=== PATIENT | female | born 2000 | race Caucasian/White ===

== ENCOUNTER 2021-11-25 13:55 | Outpatient (CLI) | payer OTHER, SELFPAY | END 2021-11-25 13:56 | disposition home or self-care (01) | LOC: NFLDREF 13:56 | PROVIDERS: Visit Provider Advanced Practice Midwife | DX: O23.42 Unspecified infection of urinary tract in pregnancy, second trimester (principal); Z3A.24 24 weeks gestation of pregnancy | CPT/HCPCS: 87086 ==

== ENCOUNTER 2021-12-26 13:27 | Outpatient (CLI) | payer OTHER, SELFPAY ==
[2021-12-28 16:26] LABS: Rapid Plasma Reagin (RPR) Non Reactive (Non Reactive)
== END 2021-12-26 13:28 | disposition home or self-care (01) ==
LOC: NFLDREF 13:27
PROVIDERS: Visit Provider Advanced Practice Midwife
DX: Z34.90 Encounter for supervision of normal pregnancy, unspecified, unspecified trimester (principal)
CPT/HCPCS: 86592

== ENCOUNTER 2022-01-23 12:46 | Outpatient (CLI) | payer OTHER, SELFPAY ==
--- OUTSIDE RECORDS SUMMARY | 2022-01-23 12:49 | XMS_ITS | Encounter Summary ---
:2000 Author Organization [facility] Address [address] [place] [address] Care Team Providers Name Role Phone Chevy, Miranda Guadalupe APRN C.N.P., M.S.N. Primary Care Pr ovider Reason for Visit Reason Comments New Patient Outpatient (Routine) - Closed Specialty Diagnoses / Referred By Contact Referred To Contact Procedures Cardiovascular Diseases / Diagnoses Bicuspid Aortic Valve (HCC) Phyllis Ramírez, [facility] Region Cardiovascular Disease M.DBettie [address] [place] [address] Referral ID Status Reason Start Date Expiration Date Visits Requ ested Visits Authorized [id number] Closed 11/03/2017 11/03/2018 1 1 Encounter Details Date Type Department Care Team Description 11/17/2017 Comprehensive Visit Department of Rene Minor Aortic Cardiovascular TSilvio, M.P.H. Valve (HCC) Diseases in [address] [place] [address] 300 [facility] [address] [place], [place] [phone] (Work) [phone] Social History Tobacco Use Types Packs/Day Years Used Date Smoking Tobacco: Never Smokeless Tobacco: Never Alcohol Habits Answer Date Recorded How often do you have a drink containing alcohol? Monthly or less 08/02/2020 How many drinks containing alcohol do you have on a 1 or 2 08/02/2020 typical day when you are drinking? How often do you have six or more drinks on one Never 08/02/2020 occasion? Comment: Not asked Social Isolation Answer Date Recorded In a typical week, how many times do you talk on Three times a week 08/02/2020 the phone with family, friends, or neighbors? How often do you get together with friends or Three times a week 08/02/2020 relatives? How often do you attend restoration or faith 1 to 4 times per year 08/02/2020 services? Do you belong to any clubs or organizations such No 08/02/2020 as restoration groups, unions, fraternal or athletic groups, or school groups? How often do you attend meetings of the clubs or Never 08/02/2020 organizations you belong to? Are you now , , , Living with partner 08/02/2020 , never or living with a partner? Physical Activity Answer Date Recorded On average, how many days per week do you engage in moderate to 2 days 08/02/2020 strenuous exercise (like walking fast, running, jogging, dancing, swimming, biking, or other activities that cause a light or heavy sweat)? On average, how many minutes do you engage in exercise at th is 20 min 08/02/2020 level? Stress Answer Date Recorded Do you feel stress - tense, restless, nervous, or anxious, N ot at all 08/02/2020 or unable to sleep at night because your mind is troubled all the time - these days? Financial Resource Strain Answer Date Recorded How hard is it for you to pay for the very basics like Not v mk hard 08/02/2020 food, housing, medical care, and heating? Intimate Partner Violence Answer Date Recorded Within the last year, have you been afraid of your partner o r No 08/02/2020 ex-partner? Within the last year, have you been humiliated or emotionall y No 08/02/2020 abused in other ways by your partner or ex-partner? Within the last year, have you been kicked, hit, slapped, or No 08/02/2020 otherwise physically hurt by your partner or ex-partner? Within the last year, have you been raped or forced to have any No 08/02/2020 kind of sexual activity by your partner or ex-partner? Food Insecurity Answer Date Recorded Within the past 12 months, you worried that your food would Never true 08/02/2020 run out before you got money to buy more. Within the past 12 months, the food you bought just didn't N ever true 08/02/2020 last and you didn't have money to get more. Transportation Needs Answer Date Recorded In the past 12 months, has lack of transportation kept you f rom No 08/02/2020 medical appointments or from getting medications? In the past 12 months, has lack of transportation kept you f rom No 08/02/2020 meetings, work, or getting things needed for daily living? Sex Assigned at Date Recorded Not on file documented as of this encounter Last Filed Vital Signs Vital Sign Reading Time Taken Comments Blood Pressure 82/53 11/17/2017 12:51 PM CDT Pulse 92 11/17/2017 12:48 PM CDT Temperature - - Respiratory Rate - - Oxygen Saturation 98% 11/17/2017 12:48 PM CDT Inhaled Oxygen Concentration - - Weight 75.1 kg (165 lb 9.1 oz) 11/17/2017 12:48 PM CDT Height 159.5 cm (5' 2.8) 11/17/2017 12:48 PM CDT Body Mass Index 29.52 11/17/2017 12:48 PM CDT Body Mass Index Percentile 93.34 % 11/17/2017 12:48 PM C DT Growth Chart: CDC (Girls, 2-20 Years) documented in this encounter Consult Notes Rene Minor M.D., M.P.H. - 11/17/2017 1:15 PM CDT Referring Provider: Phyllis Ramírez M.D. CHIEF COMPLAINT / REASON FOR VISIT Bicuspid aortic valve HISTORY OF PRESENT ILLNESS Ms. Angelo Vallejo 16-year-old female with a bicuspid aortic valve. She has no associated aortopathy. The bicuspid valve is functioning normally without any stenosis and with only trivial aortic valve regurgitation. She was born about 2 months premature and echocardiogram at 6 weeks old showed cardiomyopathy with biventricular systolic dysfunction and estimated left ventricular ejection fraction of around 25% and a bicuspid aortic valve. Currently she is doing well. She is a healthy 16-year-old and has no cardiopulmonary symptoms. The following portions of the patient's history were reviewed and updated as appropriate: Allergies,Current Medications, Family History, Medical History, Social History, Surgical History, Psychiatric History, Substance Abuse History, Problem List, Labs, and Diagnostic Tests. I also reviewed pertinentclinical notes in the electronic health record. REVIEW OF SYSTEMS A comprehensive review of systems was completed; pertinent abnormalities are included in the Historyof Present Illness. MEDICATIONS Current Medications: ??? acetaminophen (TYLENOL) 500 mg capsule, Take 1,000 mg by mouth. ??? ibuprofen (ADVIL,MOTRIN) 200 mg tablet, Take 800 mg by mouth. OBJECTIVE VITALS Blood Pressure: 82/53 Pulse: 92 SpO2: 98 % Height: 159.5 cm Weight: 75.1 kg BMI (Calculated): 29.5 kg/m?? PHYSICAL EXAMINATION General: In no acute distress. Psychiatric: Oriented to person, place, and time. Eyes: Normal sclera. No conjunctivitis. Vessels: Normal carotid pulses. Normal femoral pulses. Heart: Normal S1 with systolic click and normal S2, no S3 or S4. No obvious systolic or diastolic murmur appreciated although with the right upper sternal border there may be a faint flow murmur acrossthe aortic valve. Normal JVP. Lungs: Clear to auscultation bilaterally. No wheezes or crackles. Extremities: No edema Skin: No stasis dermatitis or ulceration of the lower extremities. DIAGNOSTIC REVIEW All labs and diagnostic studies were reviewed. Electrocardiogram 09/03/2017 shows normal sinus rhythm with nonspecific ST abnormalities. Echocardiogram of 11/02/2017 shows possible bicuspid valve with partial fusion and raphe between left and right coronary cusps without any valve stenosis. There is trivial aortic valve regurgitation. The ascending aorta is normal in dimension and there are no echocardiographic features of coarctation.The left ventricle size and wall thickness are normal. Calculated left ventricular ejection fractionis 59%. There are no regional wall motion abnormalities. ASSESSMENT / PLAN #1 Bicuspid Aortic Valve (HCC) The patient has a bicuspid valve without any associated aortopathy. The aortic valve is not stenoticand there is only trivial aortic valve regurgitation. She is asymptomatic. Echocardiogram should be repeated if the patient develops a significant heart murmur or cardiopulmonary symptoms that may be attributable to aortic valve disease. She was encouraged to maintain good dental hygiene. I did advise her and her mother who was present during the visit that her first- degree relatives should be screened with an echocardiogram for bicuspid aortic valve +/-aortopathy. I discussed the natural history of bicuspid aortic valve and did indicate to the patient and her mother that the majority of patients with bicuspid aortic valve need an intervention to the valve at some point during their lifetime because of development of aortic valve stenosis or regurgitation. I also indicated to them that overall patients with bicuspid aortic valve have a normal life expectancy with aortic valve or aorta surgery along the way. I also warned against hypertension, hyperlipidemia, diabetes, and tobacco use since these cardiovascular risk factors are known to contribute to development of aortic valve stenosis in patients with a bicuspid or tricuspid valves. Rene Minor M.D., M.P.H. 11/17/2017 documented in this encounter Plan of Treatment Not on filedocumented as of this encounter Visit Diagnoses Diagnosis Bicuspid Aortic Valve (HCC) documented in this encounter Additional Health Concerns Assessment Noted Time PHQ-9 Depression Total Score: 8 10/13/2017 12:58 PM CD T documented as of this encounter Care Teams Major Account Manager Relationship Specialty Start Date End Date Miranda Reece APRN, C.N.P., PCP - General 02/04/18 M.S.N. [address] [place] [address] documented as of this encounter
--- OUTSIDE RECORDS SUMMARY | 2022-01-23 12:49 | XMS_ITS | Encounter Summary ---
:2000 Author Organization [facility] Address [address] [place] [address] Care Team Providers Name Role Phone Reece, Miranda Guadalupe APRN C.N.PBettie, M.S.N. Primary Care Pr ovider Reason for Referral Outpatient (Routine) - Closed Specialty Diagnoses / Referred By Contact Referred To Contact Procedures Cardiovascular Diseases / Diagnoses Bicuspid Aortic Valve (HCC) Phyllis Ramírez, [facility] Cardiovascular Disease Silvio [address] [place] [address] Referral ID Status Reason Start Date Expiration Date Visits Requ ested Visits Authorized [id number] Closed 11/03/2017 11/03/2018 1 1 Encounter Details Date Type Department Care Team Description 11/03/2017 Orders Only Department of [facility] Phyllis Ramírez, Bic uspid Aortic Valve Medicine, Oren Anguiano (HCC) (Primary Dx) Clinic, in [address] [facility] [id number] [place] [address] [phone] [phone] (Work) [phone] Social History Tobacco Use Types Packs/Day Years [...] 08/02/2020 relatives? How often do you attend religious or jehovah's witness 1 to 4 times per year 08/02/2020 services? Do you belong to any clubs or organizations such No 08/02/2020 as religious groups, unions, fraternal or athletic groups, or [...] on file documented as of this encounter Plan of Treatment Scheduled Referrals Name Type Priority Associated Order Schedule Diagnoses Cardiovascular Disease Outpatient Referral Routine Bicuspid Ao rtic Expected: - General consultative Valve (HCC) 11/03 cardiology consult (Approxim ate), (clinic) Expires: 11/03/2020 documented as of this encounter Visit Diagnoses Diagnosis Bicuspid Aortic Valve (HCC) - Primary documented in this encounter Additional Health Concerns Assessment Noted Time PHQ-9 Depression Total Score: 8 10/13/2017 12:58 PM CD T documented as of this encounter Care Teams Mess Attendant Crew Relationship Specialty Start Date End Date Miranda Reece APRN, C.N.P., PCP - General 02/04/18 M.S.N. [address] [place] [address] documented as of this encounter
--- OUTSIDE RECORDS SUMMARY | 2022-01-23 12:49 | XMS_ITS | Encounter Summary ---
:2000 Author Organization [facility] Address [address] [place] [address] Care Team Providers Name Role Phone Chaparro Payan P.A.-C. Primary Care Provider [phone] Reason for Visit Reason Onset Date Comments Left Without Being Seen 09/16/2021 Appointment Request (Routine) - Authorized Specialty Diagnoses / Procedures Referred By Contact Refer red To Contact Maternal and Diagnoses Bicuspid Aortic Valve (HCC) Abnormal Ultrasound Jay Kebede, [facility] Audra GillilandNGurdeep [address] [place] [id number] Referral ID Status Reason Start Date Expiration Date Visits V isits Requested Authorized [id number] Authorized 08/25/2021 08/25/2022 3 3 Encounter Details Date Type Department Care Team Description 09/16/2021 Comprehensive Visit Department of Shelbi Tse Proce dure And Obstetrics and M.S., CGC Treatment Not Gynecology in [address] [place] [address] Carried Out Due To [place], [place] Patient Leaving [address] [place] [phone] Prior To Being Seen [place], [place] [phone] By [facility] [phone] (Work) Provider (Primary [phone] Dx) (Fax) Social History Tobacco Use Types Packs/Day Years [...] 08/02/2020 relatives? How often do you attend synagogue or jehovah's witness 1 to 4 times per year 08/02/2020 services? Do you belong to any clubs or organizations such No 08/02/2020 as synagogue groups, unions, fraternal or athletic groups, or [...] or getting things needed for daily living? Education Answer Date Recorded What is the highest level of school you have completed or 12 th grade 08/02/2020 the highest degree you have received? Sex Assigned at Date Recorded Not on file documented as of this encounter Progress Notes Shelbi Tse M.S., REENA - 09/16/2021 11:00 AM CDT Citlaly Vallejo was scheduled and checked in for an appointment but left before being seen by Shelbi Tse M.S., REENA. documented in this encounter Plan of Treatment Not on filedocumented as of this encounter Visit Diagnoses Diagnosis Procedure And Treatment Not Carried Out Due To Patient Leaving Prior To Being Seen By Health Care Provider - Primary documented in this encounter Additional Health Concerns Assessment Noted Time PHQ-9 Depression Total Score: 8 10/13/2017 12:58 PM CD T documented as of this encounter Care Teams Glass Breaker Relationship Specialty Start Date End Date Chaparro Payan P.A.-C. PCP - General 02/05/[address] [place] [phone] documented as of this encounter
--- OUTSIDE RECORDS SUMMARY | 2022-01-23 12:49 | XMS_ITS | Encounter Summary ---
:2000 Author Organization [facility] Address [address] [place] [address] Care Team Providers Name Role Phone Chaparro Payan P.A.-C. Primary Care Provider [phone] Reason for Referral Outpatient (Routine) - Closed Specialty Diagnoses / Procedures Referred By Contact Refer red To Contact Diagnoses Lesion Skin Chest Chaparro Payan P.A.-C. Procedures Lesion Excision and Closure [address] [place] [phone] Referral ID Status Reason Start Date Expiration Date Visits Requ ested Visits Authorized [id number] Closed 08/12/2020 08/12/2021 1 1 Reason for Visit Reason Comments Suspicious Skin Lesion R upper breast mole removal Outpatient (Routine) - Closed Specialty Diagnoses / Procedures Referred By Contact Refer red To Contact Family Medicine Chaparro Payan P. A.-C. [facility] [address] [place] [phone] Referral ID Status Reason Start Date Expiration Date Visits Requ ested Visits Authorized [id number] Closed 08/02/2020 08/02/2021 1 1 Encounter Details Date Type Department Care Team Description 08/12/2020 Office Visit Department of Family Chaparro Payan Le sion Skin Chest Medicine [facility] Dx[facility], in [address] [address] [place] CORT[place]S [phone] (Work) [phone] Social History Tobacco Use Types Packs/Day Years [...] 08/02/2020 relatives? How often do you attend taoist or scientologist 1 to 4 times per year 08/02/2020 services? Do you belong to any clubs or organizations such No 08/02/2020 as taoist groups, unions, fraternal or athletic groups, or [...] Sign Reading Time Taken Comments Blood Pressure 104/62 08/12/2020 11:02 AM CDT Pulse 80 08/12/2020 11:02 AM CDT Temperature 36 ??C (96.8 ??F) 08/12/2020 11:02 AM CDT Respiratory Rate - - Oxygen Saturation - - Inhaled Oxygen Concentration - - Weight 88 kg (194 lb 0.1 oz) 08/12/2020 11:02 AM CDT Height 160 cm (5' 2.99) 08/12/2020 11:02 AM CDT Body Mass Index 34.38 08/12/2020 11:02 AM CDT documented in this encounter Progress Notes Chaparro Payan P.A.-C. - 08/12/2020 11:00 AM CDT CHIEF COMPLAINT / REASON FOR VISIT Citlaly Vallejo is a 19 y.o. female who presents for evaluation of Suspicious Skin Lesion (R upper breast mole removal). HISTORY OF PRESENT ILLNESS Citlaly presents today for skin lesion removal. I recently did her history and physical examination she has 2 lesions on her chest that she says have changed in size. OBJECTIVE Vitals: 08/12/20 1102 BP: 104/62 BP Location: Right arm Patient Position: Sitting Cuff Size: Large Pulse: 80 Temp: 36 ??C Weight: 88 kg Height: 160 cm Body mass index is 34.38 kg/m??. PHYSICAL EXAM In general she appears in no acute distress Skin: On her right upper chest she has 2 lesions 1 is very dark in approximately 3 mm in diameter. The other 1 is small with irregular borders and just below the other lesion closer to her breast. IMPRESSION / REPORT / PLAN #1 Lesion Skin Chest We had a good discussion about these previously and given the fact they have changed in size we opted to remove them. Please see separate procedure note Chaparro Payan P.A.-C. documented in this encounter Procedure Notes Chaparro Payan P.A.-C. - 08/12/2020 11:00 AM CDTAssociated Order(s): Lesion Excision and Closure Post-Procedure Diagnose(s): Lesion Skin Chest Lesion Excision and Closure Date/Time: 08/12/2020 11:00 AM Performed by: Chaparro Payan P.A.-C. Authorized by: Chaparro Payan P.A.-C. Care team members present 1. Chaparro Payan P.A.-C. PROCEDURE DETAILS Number of lesions: 2 Lesion Number 1 Location on body: anterior trunk Anterior trunk: right chest. Size of lesion: 0.3 cm Size of total margins (both edges): 0.1 cm Size of lesion + margin: 0.4 cm Excision depth: epidermal Specimen sent for pathology: yes Malignancy: Malignancy unknown Wound closure / hemostasis: hemostasis Hemostasis: aluminum chloride Photo taken: no Lesion Number 2 Location on body: anterior trunk Anterior trunk: right chest. Size of lesion: 0.1 cm Size of total margins (both edges): 0.1 cm Size of lesion + margin: 0.2 cm Excision depth: epidermal Specimen sent for pathology: yes Malignancy: Malignancy unknown Wound closure / hemostasis: hemostasis Hemostasis: aluminum chloride Photo taken: no CONSENT Consent obtained: verbal Consent given by: patient The benefits, risks and alternatives to the procedure and the potential need for sedation or anesthesia as well as the names, roles, and responsibilities of healthcare team members performing significant interventional tasks were discussed with the patient and/or decision maker. UNIVERSAL PROTOCOL All relevant documentation and testing were reviewed and available. All required blood products, implants, devices and or special equipment were made available as applicable. Pre-procedure verificationwas conducted and the correct site was marked if required. A fire risk assessment was done as applicable. The procedural time-out was conducted prior to performing the procedure and confirmed in a procedural pause. PRE-PROCEDURE DETAILS Procedure purpose: diagnostic Site preparation: povidone / iodine and alcohol SEDATION / ANESTHESIA Anesthesia method: local infiltration Local infiltrate type: lidocaine, with epinephrine POST-PROCEDURE DETAILS Estimated blood loss: minimal Procedure completed successfully: Yes Complications: No apparent complications Tolerance: well tolerated Follow-up: yes, requested as ordered documented in this encounter Plan of Treatment Not on filedocumented as of this encounter Procedures Procedure Name Priority Date/Time Associated Diagnosis Comme nts SURGICAL PATHOLOGY Routine 08/12/2020 11:44 AM Lesion Skin [address] Results for this CDT procedure are i n the results section. LESION EXCISION AND Routine 08/12/2020 11:00 AM Lesion Skin Ch est Results for this CLOSURE CDT procedure are i n the results section. documented in this encounter Results Surgical Pathology (08/12/2020 11:44 AM CDT) Component Value Ref Test Analysis Performed At [facility] Range Method Time Signature 08/14/2020 JULIO 11:27 AM CDT Report Stevan Perez 08/14/2020 JULIO electronically MD Isra 11:27 AM signed by CDT Specimen Received A. ??Skin punch biopsy right upper chest 08/14/2020 JULIO B. ??Skin punch biopsy right lower chest 11:27 AM CDT Clinical History Skin lesions 08/14/2020 MKTO 11:27 AM CDT Gross Description A: ??Submitted as right upper chest is a 0.3 cm i n diameter 08/14/2020 [facility] with a depth of 0.1 cm light mcknight skin punch. ESBChris 11:27 AM B: ??Submitted as right lower chest is a 0.2 cm in diameter CDT with a depth of 0.1 cm light mcknight skin punch. ESBMandy. [facility]/nm Interpretation FINAL DIAGNOSIS 08/14/2020 [facility] A. Skin, right upper chest punch biopsy: ??Dermal nevus, 11:27 AM appearing excised in the plane of the sections examined. CDT B. Skin, right lower chest punch biopsy: ??Dermal nevus, appearing excised in the plane of the sections examined. Specimen Anatomical Collection Method Collection Time Receive d Time (Source) Location / / Volume Laterality Varies 08/12/2020 11:44 08/13/2020 8:26 AM CDT AM CDT Narrative This result has an attachment that is no t available. Chaparro Payan P.A.-C. LAB SURG PATH ORDERABLES Performing Organization Address [facility]/State/ZIP Code Phon e Number [facility]- [address] [place] [address] [place] [address] [address] Lesion Excision and Closure (08/12/2020 11:00 AM CDT) Narrative Chaparro Payan P.A.-C. - 08/12/2020 11:00 AM CDT Chaparro Payan P.A.-C. ? 08/12/2020 ??1:02 PM Lesion Excision and Closure Date/Time: 08/12/2020 11:00 AM Performed by: Chaparro Payan P.A.-C . Authorized by: Chaparro Payan P.A.- C. Care team members present 1. Chaparro Payan P.A.-C. PROCEDURE DETAILS ?? Number of lesions: 2 Lesion Number 1 Location on body: anterior trunk Anterior trunk: right chest. Size of lesion: 0.3 cm Size of total margins (both edges): 0.1 cm Size of lesion + margin: 0.4 cm Excision depth: epidermal Specimen sent for pathology: yes Malignancy: Malignancy unknown Wound closure / hemostasis: hemostasis Hemostasis: aluminum chloride Photo taken: no Lesion Number 2 Location on body: anterior trunk Anterior trunk: right chest. Size of lesion: 0.1 cm Size of total margins (both edges): 0.1 cm Size of lesion + margin: 0.2 cm Excision depth: epidermal Specimen sent for pathology: yes Malignancy: Malignancy unknown Wound closure / hemostasis: hemostasis Hemostasis: aluminum chloride Photo taken: no CONSENT Consent obtained: verbal Consent given by: patient The benefits, risks and alternatives to the procedure and the potential need for sedation or anesthesia as well as the names, roles, and responsibilities of healthcare team memb ers performing significant interventional tasks were discussed with the patient and/or decision maker. UNIVERSAL PROTOCOL All relevant documentation and testing w ere reviewed and available. All required blood products, implants, devic es and or special equipment were made available as applicable. Pre-proced ure verification was conducted and the correct site was marked if required. A fire risk assessment was done as applicable. The procedural time-out w as conducted prior to performing the procedure and confirmed in a procedu ral pause. PRE-PROCEDURE DETAILS ?? Procedure purpose: diagnostic Site preparation: povidone / iodine and alcohol SEDATION / ANESTHESIA Anesthesia method: local infiltration Local infiltrate type: lidocaine, with e pinephrine POST-PROCEDURE DETAILS ?? Estimated blood loss: minimal Procedure completed successfully: Yes ?? Complications: No apparent complications ?? Tolerance: well tolerated Follow-up: yes, requested as ordered Chaparro Payan P.A.-C. PROCEDURE/MINOR SURGICAL ORD ERABLES documented in this encounter Visit Diagnoses Diagnosis Lesion Skin Chest - Primary documented in this encounter Additional Health Concerns Assessment Noted Time PHQ-9 Depression Total Score: 8 10/13/2017 12:58 PM CD T documented as of this encounter Care Teams Assessment Specialist Relationship Specialty Start Date End Date Chaparro Payan P.A.-C. PCP - General 02/05/18 [address] [place] [phone] documented as of this encounter
--- OUTSIDE RECORDS SUMMARY | 2022-01-23 12:49 | XMS_ITS | Encounter Summary ---
:2000 Author Organization [facility] Address [address] [place] [address] Care Team Providers Name Role Phone Chaparro Payan P.A.-C. Primary Care Provider [phone] Reason for Visit Reason Onset Date Comments Outpatient COVID-19 Testing 07/12/2020 Encounter Details Date Type Department Care Team Description 07/12/2020 External Outreach Department of Family Wood Guzman Contact With And Medicine, [facility] Abdulkadir Winter D.O. (Suspected) Exposure Building, in [address] COVID-19 (Primary [place], [place] Dx) [address] [facility] [address] [place], [place] [phone] (Work) [phone] Social History Tobacco Use Types Packs/Day Years [...] 08/02/2020 relatives? How often do you attend catholic or restorationism 1 to 4 times per year 08/02/2020 services? Do you belong to any clubs or organizations such No 08/02/2020 as catholic groups, unions, fraternal or athletic groups, or [...] documented as of this encounter Progress Notes Doreen Johnson R.N. - 07/12/2020 2:43 PM CST Encounter created for COVID-19 screening. LOGY PROFESSOR documented in this encounter Plan of Treatment Not on filedocumented as of this encounter Procedures Procedure Name Priority Date/Time Associated Diagnosis Comme nts SARS CORONAVIRUS-2 Routine 07/12/2020 4:07 PM Contact With And Results for this RNA, V PENOLOGY PROFESSOR (Suspected) Exposure procedu re are in To COVID-19 the results section. documented in this encounter Results SARS Coronavirus-2 RNA, V Asymptomatic (07/12/2020 4:07 PM PENOLOGY PROFESSOR) [facility] Method Time Signature SARS-CoV-2 Swab, 07/13/2020 [facility] Specimen Nasopharynx 1:56 AM PENOLOGY PROFESSOR Source SARS CoV-2 Undetected Undetected 07/13/2020 [facility] RNA, TMA 1:56 AM PENOLOGY PROFESSOR Comment: SARS-CoV-2 RNA absent. This result does not rule out COVID-19 in the patient, as the sensitivity of the test depends o n the timing of the specimen collection and the quality of the specim en. Result should be correlated with patient's history and clinical presentat ion. ----ADDITIONAL INFORMATION---- This molecular amplification test was pe rformed using the Aptima SARS-CoV-2 assay ([employer] on the [employer] tem under emergency use authorization (EUA) by the U.S. Food and Drug Administ ration. Fact sheets for this EUA assay can be fo und at the following links: For Healthcare Providers: https://www.fd a.gov/media/111180/download For Patients: https://www.fda.gov/media/ 817856/download Specimen Anatomical Collection Method Collection Time Receive d Time (Source) Location / / Volume Laterality Varies 07/12/2020 4:07 PM 02/12/202 1 8:44 (Nasopharynx) PENOLOGY PROFESSOR PM PENOLOGY PROFESSOR Wood Guzman D.O. LAB MICROBIOLOGY - GENERAL O JIMMY Performing Organization Address City/State/ZIP Code Phon e Number [facility]- [address] [place] [id number] [place] [address] [place] [address] System [address] documented in this encounter Visit Diagnoses Diagnosis Contact With And (Suspected) Exposure To COVID-19 - Primary documented in this encounter Additional Health Concerns Infection Onset Date Last Indicated Resolved Time COVID19 Pending 07/12/2020 07/12/2020 07/13/2020 1:56 AM PENOLOGY PROFESSOR Assessment Noted Time PHQ-9 Depression Total Score: 8 10/13/2017 12:58 PM CD T documented as of this encounter Care Teams On Site Soil Evaluator Relationship Specialty Start Date End Date Chaparro Payan P.A.-C. PCP - General 02/05/[address] [place] [phone] documented as of this encounter
--- OUTSIDE RECORDS SUMMARY | 2022-01-23 12:49 | XMS_ITS | Encounter Summary ---
:2000 Author Organization [facility] Address [address] [place] [address] Care Team Providers Name Role Phone Chaparro Payan P.A.-C. Primary Care Provider [phone] Encounter Details Date Type Department Care Team Description 07/12/2020 Admin Visit Department of Family Medicine, [address] [address] [facility] [phone] Social History Tobacco Use Types Packs/Day Years [...] 08/02/2020 relatives? How often do you attend pentecostalism or gnosticist 1 to 4 times per year 08/02/2020 services? 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 PCP - General 02/05/[address] [place] [phone] documented as of this encounter
--- OUTSIDE RECORDS SUMMARY | 2022-01-23 12:49 | XMS_ITS | Encounter Summary ---
:2000 Author Organization [facility] Address [address] [place] [address] Care Team Providers Name Role Phone Chaparro Payan P.A.-C. Primary Care Provider [phone] Encounter Details Date Type Department Care Team Description 02/20/2020 Orders Only [facility] PCP [facility] Chaparro Payan P.A.-C. [address] [place] [phone] (Wo rk) Social History Tobacco Use Types Packs/Day Years [...] 08/02/2020 relatives? How often do you attend evangelical or zoroastrianism 1 to 4 times per year 08/02/2020 services? Do you belong to any clubs or organizations such No 08/02/2020 as evangelical groups, unions, fraternal or athletic groups, or [...] filedocumented in this encounter Additional Health Concerns Assessment Noted Time PHQ-9 Depression Total Score: 8 10/13/2017 12:58 PM CD T documented as of this encounter Care Teams Barrel Tester Relationship Specialty Start Date End Date Chaparro Payan P.A.-C. PCP - General 02/05/[address] [place] [phone] documented as of this encounter
--- OUTSIDE RECORDS SUMMARY | 2022-01-23 12:49 | XMS_ITS | Encounter Summary ---
:2000 Author Organization [facility] Address [address] [place] [address] Care Team Providers Name Role Phone Chaparro Payan P.A.-C. Primary Care Provider [phone] Reason for Referral Specialty Diagnoses / Procedures Referred By Contact Refer red To Contact Chaparro Payan P. A.-C. [facility] [address] [place] [address] Referral ID Status Reason Start Date Expiration Date Visits Requ ested Visits Authorized WORKER Encounter Details Date Type Department Care Team Description 07/30/2021 Orders Only [facility] PCP [facility] Chaparro Payan P.A.-C. [address] [place] [phone] (Wo rk) Social History Tobacco [...] How often do you attend synagogue or moravian 1 to 4 times per year 08/02/2020 [...] Name Type Priority Associated Order Schedule Diagnoses Covid immunization Outpatient Referral Routine Ex pected: office visit Booster 022 (Approximate), Expires: 07/30/2022 documented as of this encounter Visit Diagnoses Not on filedocumented in this encounter Additional Health Concerns Assessment Noted Time PHQ-9 Depression Total Score: 8 10/13/2017 12:58 PM CD T documented as of this encounter Care Teams Professor Of Early Childhood Education Relationship Specialty Start Date End Date Chaparro Payan P.A.-C. PCP - General 02/05/[address] [place] [phone] documented as of this encounter
--- OUTSIDE RECORDS SUMMARY | 2022-01-23 12:49 | XMS_ITS | Encounter Summary ---
:2000 Author Organization [facility] Address [address] [place] [address] Care Team Providers Name Role Phone Chaparro Payan P.A.-C. Primary Care Provider [phone] Encounter Details Date Type Department Care Team Description 09/16/2021 Hospital Encounter Department of Americo Bear [facility] Obstetrics and MJeronimo ([facility]) Gynecology in [address] [place] [address] [place] [phone] [place], [place] [phone] (Work) [phone] Social History Tobacco Use Types Packs/Day Years [...] 08/02/2020 relatives? How often do you attend hinduism or catholic 1 to 4 times per year 08/02/2020 services? Do you belong to any clubs or organizations such No 08/02/2020 as hinduism groups, unions, fraternal or athletic groups, or [...] on file documented as of this encounter Medications at Time of Discharge Medication Sig Dispensed Refills Start Date End Date albuterol 90 mcg/actuation Inhale 2 puffs as 0 inhaler needed. ibuprofen (ADVIL,MOTRIN) Take 800 mg by mouth. 0 200 mg tablet Take 1 tablet by 0 [id number]-[id number] (VINATE mouth daily. ONE) 60 mg iron-1 mg per tablet documented as of this encounter Plan of Treatment Not on filedocumented as of this encounter Procedures Procedure Name Priority Date/Time Associated Comments Diagnosis US OB FOLLOW-UP RAD - Routine 09/16/2021 8:30 High Risk Results for this AND OR GROWTH (most inpatients AM CDT (HCC) procedu re are in ABEL and all the results outpatients) section. documented in this encounter Results US OB Follow-up and or Growth Abel (09/16/2021 8:30 AM CDT) Anatomical Region Laterality Modality Body, Ultrasound OB RST LOS, Ultrasound ARZ LOS N/A Ultrasound Specimen (Source) Anatomical Location Collection Method / Collectio n Time Received Time / Laterality Volume Narrative 09/16/2021 9:04 AM CDT CITLALY HOLLAND OB Exam, 09/16/2021 EXAM INFORMATION Patient Name: ??TELLY CHURCHCITLALY LAURA : ??2000 Age: ??20 yrs Sex: ??Female Ref Phys: ??AMERICO BEAR Exam Date: 09/16/2021 Procedure: US OB FOLLOW-UP AND OR GROWTH ABEL Exam Site: [facility] OB #[id number] Plurality: 1 OBHx: [G:(1)] ?F Trm:() Pre:() C-Sec:() Ab-I:( ) Ab-S:() Ect:() Multi:() Joycelyn:() INDICATIONS FOR SONOGRAPHY Maternal bicuspid aortic valve. ?? IMPRESSION Abel . Size is concordant with dates. No abnormalities identified at this early gestation. Recommend routine anatomy scan between 18 and 22 weeks gestation. MEASUREMENTS ??ky ??wks [+/-] (R kendall) % ?? BPD: 2.71 cm ?? 14w6d ??[+/-1.19] ??(1. 95 - 3.13) 71% FL: 1.46 cm ?? 14w2d ??[+/-1.38] ??(0.8 6 - 2.04) 52% HC: 10.34 cm ?? 14w6d ??[+/-1.19] ??(7. 90 - 11.82) 68% AC: 7.91 cm ?? 14w2d ??[+/-1.66] ??(4.8 5 - 10.10) 63% CI: 74.86 ?(75.34 - 87.52) <2% RATIOS ??(Range) % ?? HC/AC: 1.31 ?(1.13 - 1. 32) 88% ?? FL/BPD: 0.54 ? FL/AC: 0.18 ? COMPUTATIONS GA: ?? 14w1d Method: EMILEE EMILEE: 03/16/2022 Sono GA: 14w4d Method: ?? Average OBSERVATIONS Amniotic Fluid Fluid Volume: ??Normal Placenta: Placenta is Anterior. ?? Presentation: ?? Cephalic Size: ?? Normal for dates FHR: 151 bpm ANATOMY Normal: Sag and Trans Cervical spine, Sa g and Trans Thoracic spine, Sag and Trans Lumbar spine, Sag and Trans Sacral spine, cerebral ventricle, choroid plexus, midline falx, 4 chamber heart, anterior ab dominal wall, abdominal cord insertion, cord insert into placenta, 3 vessel cord, situs, sto mach, kidneys, bladder, face/orbits, profile/Nasal bone, upper extremities, lower extremities COMMENTS Transabdominal ultrasound was performed. 14 week assessment Abel in cephalic presentation. Comp osite biometry is consistent with gestational age. A limited scan for anatomy is unremarkable. The right ovary appears normal. The left adnexa appears normal. Preliminary Read by Wing Willett on 8:30:37 AM. Test Cell Technician: ??Wing Willett Thank You For This Referral Procedure Note Yvonne Sanchez M.D. - 09/16/2021Forma tting of this note might be different from the original. CITLALY HOLLAND OB Exam, 09/16/2021 EXAM INFORMATION Patient Name: CITLALY HOLLAND : 2000 Age: 20 yrs Sex: Female Ref Phys: AMERICO BEAR Exam Date: 09/16/2021 Procedure: US OB FOLLOW-UP AND OR GROWTH ABEL Exam Site: [facility] OB #[id number] Plurality: 1 OBHx: [G:(1)] F Trm:() Pre:() C-Sec:() Ab-I:() Ab-S:( ) Ect:() Multi:() Joycelyn:() INDICATIONS FOR SONOGRAPHY Maternal bicuspid aortic valve. IMPRESSION Abel . Size is concordant with dates. No abnormalities identified at this early gestation. Recommend routine anatomy scan between 18 and 22 weeks gestation. MEASUREMENTS ky wks [+/-] (Range ) % BPD:2.71 cm 14w6d [+/-1.19] (1.95 - 3.1 3) 71% FL: 1.46 cm 14w2d [+/-1.38] (0.86 - 2.0 4) 52% HC: 10.34 cm 14w6d [+/-1.19] (7.90 - 11 .82) 68% AC: 7.91 cm 14w2d [+/-1.66] (4.85 - 10. 10) 63% CI: 74.86 (75.34 - 87.52) <2% RATIOS (Range) % HC/AC:1.31 (1.13 - 1.32) 88% FL/BPD:0.54 FL/AC:0.18 COMPUTATIONS GA: 14w1d Method: EMILEE EMILEE: 03/16/2022 Sono GA: 14w4d Method: Average OBSERVATIONS Amniotic Fluid Fluid Volume: Normal Placenta: Placenta is Anterior. Presentation: Cephalic Size: Normal for dates FHR: 151 bpm ANATOMY Normal: Sag and Trans Cervical spine, Sa g and Trans Thoracic spine, Sag and Trans Lumbar spine, Sag and Trans Sacral spine, cerebral ventricle, choroid plexus, midline falx, 4 chamber heart, anterior abdominal wall, abdominal cord insertion, cord insert into placenta, 3 vessel cord, situs, sto mach, kidneys, bladder, face/orbits, profile/Nasal bone, upper extremities, lower extremities COMMENTS Transabdominal ultrasound was performed. 14 week assessment Abel in cephalic presentation. Comp osite biometry is consistent with gestational age. A limited scan for anatomy is unremarkable. The right ovary appears normal. The left adnexa appears normal. Preliminary Read by Wing Willett on 022 8:30:37 AM. Test Cell Technician: Wing Willett Thank You For This Referral Americo Bear M.D. IMG OB US PROCEDURES documented in this encounter Visit Diagnoses Diagnosis High Risk (HCC) documented in this encounter Additional Health Concerns Assessment Noted Time PHQ-9 Depression Total Score: 8 10/13/2017 12:58 PM CD T documented as of this encounter Care Teams Forging Press Operator Relationship Specialty Start Date End Date Chaparro Payan P.A.-C. PCP - General 02/05/18 [address] [place] [phone] documented as of this encounter
--- OUTSIDE RECORDS SUMMARY | 2022-01-23 12:49 | XMS_ITS | Clinical Summary ---
:2000 Author Organization [facility] Address [address] [place] [address] Care Team Providers Name Role Phone Chaparro Payan P.A.-C. Primary Care Provider [phone] Source Comments Patient records contain information from all sites at [facility]. For routine questions regarding patient records, call [phone] during business hours, M-F 8:00 AM - 5:00 PM Central Time. Record requests for emergency care only can be directed to [phone] at any time.[facility] Allergies Active Allergy Reactions Severity Noted Date Comments Penicillins Rash 12/19/2007 Medications Medication Sig Dispensed Refills Start Date End Date Status ibuprofen Take 800 mg by 0 Activ e (ADVIL,MOTRIN) 200 mg mouth. tablet albuterol 90 Inhale 2 puffs as 0 09/03/2021 Active mcg/actuation inhaler needed. Take 1 tablet by 0 Act navarro dtbhugy-Px-zunh-FA mouth daily. (VINATE ONE) 60 mg iron-1 mg per tablet Active Problems Patient Care Coordination Note Formatting of this note might be differe nt from the original. Spouse: no Children: no Work: no AYAZ on file for mom Amy ([phone]) Problem Noted Date Overweight Body Mass Index 25-29.9 Adult 09/03/2017 Bicuspid Aortic Valve 09/03/2017 Estimated Date of Delivery Comments Yes 03/16/2022 Based on last menstr ual period of 06/09/2021 Resolved Problems Problem Noted Date Resolved Date Constipation Slow Transit 09/03/2017 10/13/2017 Immunizations Name Administration Dates Next Due 4vHPV (discontinued) 08/16/2008, 03/27/2008, 12/19/2007 DTaP (Infanrix, Tripedia) 02/03/2011 DTaP, Unspecified 01/08/2003, 06/17/2000, 09/05/1999, 07/08/1999, 02/04/1999 HepA, Unspecified 12/15/2002, 07/15/2001 HepB, Unspecified 06/17/2000 Hib (PRP-T) (ACTHIB, HIBERIX) 09/29/2000, 06/17/2000 Hib-HepB 07/08/1999, 02/04/1999 IPV 01/08/2003, 09/05/1999, 07/08/1999, 02/04/1999 Influenza (IM) Preservative Free 03/27/2008 Influenza, Injectable, Quadrivalent 03/05/2020 Influenza, Unspecified 04/30/2015, 01/24/2013, 03/14/2011, 03/27/2008 MCV4 (Menactra) 04/30/2015, 01/30/2011 MMR 01/08/2003, 12/08/1999 PCV7 (discontinued) 09/29/2000, 06/17/2000 SARS-COV-2 (COVID-19) - PFIZER (12 02/28/2021, 02/07/2021 years or older) Tdap 02/18/2011 NOLAN 11/01/2007, 12/08/1999 Family History Relation Name Status Comments Brother 1 Alive Brother 2 Alive Father Alive Mother Alive Sister Alive Social History Tobacco Use Types Packs/Day Years [...] 08/02/2020 relatives? How often do you attend yazidism or evangelical 1 to 4 times per year 08/02/2020 services? Do you belong to any clubs or organizations such No 08/02/2020 as yazidism groups, unions, fraternal or athletic groups, or [...] 08/02/2020 the highest degree you have received? Estimated Date of Delivery Comments Yes 03/16/2022 Based on last menstr ual period of 06/09/2021 Sex Assigned at Date Recorded Not on file Last Filed Vital Signs Vital Sign Reading Time Taken Comments Blood Pressure 113/74 09/16/2021 8:36 AM CDT Pulse 79 09/16/2021 8:36 AM CDT Temperature 36.6 ??C (97.9 ??F) 09/16/2021 8:36 AM CDT Respiratory Rate 16 08/02/2020 2:23 PM CEREAL MILLER Oxygen Saturation 100% 09/16/2021 8:36 AM CDT Inhaled Oxygen Concentration - - Weight 86.6 kg (190 lb 14.7 oz) 09/16/2021 8:36 AM CDT Height 160 cm (5' 2.99) 09/16/2021 8:36 AM CDT Body Mass Index 33.83 09/16/2021 8:36 AM CDT Plan of Treatment Health Maintenance Due Date Last Done Comments HIV Screening 2000 Hepatitis C Screening 2000 Depression Screening 05/31/2021 (Annual PHQ-2) COVID-19 Vaccine (3 - 07/29/2021 02/28/2021, 02/07/2021 Booster for Pfizer series) Chlamydia and Gonorrhea 08/02/2021 08/02/2020, 09/03/2017 Screening Influenza Vaccine (#1) 2022 03/26/2021, 03/05/2020, 04/30/2015, Additional history exists Cervical Cancer Screening 08/03/2023 08/02/2020 DTaP,Tdap,and Td Vaccines 01/09/2032 01/08/2022, 02/18/2011 , (9 - Td or Tdap) 02/03/2011, Additional history exists Hepatitis B Vaccines Completed 06/17/2000, 07/08/1999, 02/04/1999 Pneumococcal vaccine (0-64 Aged Out 09/29/2000, 01/18/200 1 No longer eligible years) based on patient 's age to complete this topic HPV Vaccines Completed 08/16/2008, 03/27/2008, 12/19/2007 Insurance Payer Benefit Plan / Subscriber ID Effective Phone Address T ype Group Dates PREFERREDONE PREFERREDONE [id number] 2019-Pre [phone] [address]OX PPO ADMINISTRATIVE ADMINISTRATIVE sent [phone] [place] [phone] Care Teams Bulk Pigment Reducer Relationship Specialty Start Date End Date Chaparro Payan P.A.-C. PCP - General 02/05/18 [address] [place] [phone]
--- OUTSIDE RECORDS SUMMARY | 2022-01-23 12:49 | XMS_ITS | Encounter Summary ---
:2000 Author Organization [facility] Address [address] [place] [address] Care Team Providers Name Role Phone Chaparro Payan P.A.-C. Primary Care Provider [phone] Encounter Details Date Type Department Care Team Description 08/30/2020 Orders Only [facility] PCP [facility] Sa daina Buckley M.D. [address] [place], [place] [phone] (Wo rk) Social History Tobacco Use Types [...] How often do you attend catholic or adventist 1 to 4 times per year 08/02/2020 [...] documented as of this encounter Care Teams Inverter And Clipper Relationship Specialty Start Date End Date Chaparro Payan P.A.-C. PCP - General 02/05/[address] [place] [phone] documented as of this encounter
--- OUTSIDE RECORDS SUMMARY | 2022-01-23 12:49 | XMS_ITS | Encounter Summary ---
:2000 Author Organization [facility] Address [address] [place] [address] Care Team Providers Name Role Phone Chaparro Payan P.A.-C. Primary Care Provider Reason for Referral Outpatient (Routine) - Closed Specialty Diagnoses / Procedures Referred By Contact Refer red To Contact Diagnoses Bicuspid Aortic Valve (HCC) Americo Bear M.D. [facility] Procedures Echo Transthoracic (TTE) - Adult Congenital [address] [place], [place] [phone] Referral ID Status Reason Start Date Expiration Date Visits Requ ested Visits Authorized [id number] Closed 09/11/2021 09/11/2022 1 1 Reason for Visit Outpatient (Routine) - Closed Specialty Diagnoses / Procedures Referred By Contact Refer red To Contact Diagnoses Bicuspid Aortic Valve (HCC) Americo Bear M.D. [facility] Procedures Echo Transthoracic (TTE) - Adult Congenital [address] [place], [place] [phone] Referral ID Status Reason Start Date Expiration Date Visits Requ ested Visits Authorized [id number] Closed 09/11/2021 09/11/2022 1 1 Encounter Details Date Type Department Care Team Description 09/16/2021 Hospital Encounter Department of Americo Bear Bicuspi d Aortic Cardiovascular Diseases Silvio Valve (HCC) in [facility] marya [address] [facility] [address] [place] [phone] Social History Tobacco Use Types Packs/Day Years [...] 08/02/2020 relatives? How often do you attend restorationism or amish 1 to 4 times per year 08/02/2020 services? Do you belong to any clubs or organizations such No 08/02/2020 as restorationism groups, unions, fraternal or athletic groups, or [...] mg tablet Take 1 tablet by 0 frccukc-Ru-bndu-FA (VINATE mouth daily. ONE) 60 mg iron-1 mg per tablet documented as of this encounter Plan of Treatment Not on filedocumented as of this encounter Procedures Procedure Name Priority Date/Time Associated Comments Diagnosis (TTE) CONGENITAL 2D Routine 09/16/2021 1:54 PM Bicuspid Aortic Results for this WITH COLOR AND CDT Valve (HCC) procedure are in DOPPLER the results section. documented in this encounter Results (TTE) CONGENITAL 2D WITH COLOR AND DOPPLER (09/16/2021 1:54 PM CDT) [facility] Method Time Signature Ejection Fraction 64 MC CV EIMS Sinus of Valsalva 27 MC CV EIMS Sinotubular Junction 21 MC CV EIM S Mid-Ascending Aorta 24 MC CV EIMS LV Mass Index 80 MC CV EIMS LV End-Diastolic 49 MC CV EIMS Diameter LV End-Systolic 31 MC CV EIMS Diameter MV E Velocity 0.90 MC CV EIMS MV A Velocity 0.40 MC CV EIMS MV E/A 2.25 MC CV EIMS MV e' Velocity 0.12 MC CV EIMS Medial MV e' Velocity 0.17 MC CV EIMS Lateral MV E/e' Medial 7.50 MC CV EIMS MV E/e' Lateral 5.30 MC CV EIMS Left ventricular 41 MC CV EIMS stroke volume index Cardiac Output 5.34 MC CV EIMS Cardiac Index 2.81 MC CV EIMS LV Interventricular 9 MC CV EIMS Septal Wall Thickness LV Posterior Wall 9 MC CV EIMS Thickness TAPSE 28 MC CV EIMS Tricuspid Annular S? 0.13 MC CV EIMS TR Vmax 2.40 MC CV EIMS RA Pressure 5 MC CV EIMS RV Systolic Pressure 28 MC CV EIM S Estimated diastolic 8 MC CV EIMS pulmonary artery pressure Aortic valve area 2.31 MC CV EIMS Aortic Valve Area 1.22 MC CV EIMS Index Aortic Valve 0.74 MC CV EIMS Dimensionless Index Aortic Valve 1.50 MC CV EIMS Systolic Peak Velocity Anatomical Region Laterality Modality Echocardiography Specimen (Source) Anatomical Collection Method Collection Time Re ceived Time Location / / Volume Laterality 09/16/2021 12:53 PM CDT Impressions 09/16/2021 6:56 PM CDT LEFT VENTRICLE:Normal left ventricular chamber size. Normal left ventricular wall thickness. Calculated 2-D linear left ventricular ejection fraction 64%. Left ventricular volumetric assessment not perf ormed because of image quality. No regio nal wall motion abnormalities. Normal left ventri cular diastolic function. RIGHT VENTRICLE:Normal right ventricular chamber size. Normal right ventricular systolic function. Estimated right ventricular systolic pressure 28 mmHg (systolic blood pressure 113 mmHg). ATRIA:Normal left atrial size. Normal ri ght atrial size. CARDIAC VALVES:Bicuspid aortic valve. No ??aortic valve stenosis. Trivial aortic valve regurgitation. Normal mitral valve. Trivial mitral valve regurgitation. Normal pulmonary valve. Trivial pulmonary v alve regurgitation. Normal tricuspid lucy ve. Trivial tricuspid valve regurgitation. OTHER ECHO FINDINGS:Normal inferior vena cava size with normal inspiratory collapse (>50%). Normal ascending aorta diameter. No abdominal aortic aneurysm. Normal abdominal aorta Doppler flow pattern. No atrial level shunt by color flow imaging. No evidence of coarctation of aorta. No int racardiac mass or thrombus, but the left atrial appendage cannot be visualized adequately with transthoracic echo to exclude thrombus in this location. No ??pericardial effusion. For the complete report, see the Order-L evel Documents. Narrative 09/16/2021 6:56 PM CDT For the complete report, see the Order-Level Documents. Final Impressions 1. Bicuspid aortic valve (fusion of the right and left cusps). Trivial aortic valve regurgitation. No aortic valve stenosis. 2. Normal left ventricular chamber size , calculated ejection fraction 64%. 3. Normal left ventricular diastolic fun ction. 4. Normal right ventricular chamber size and systolic function. 5. Estimated right ventricular systolic pressure 28 mmHg (systolic blood pressure 113 mmHg). 6. Normal inferior vena cava size with n ormal inspiratory collapse (>50%). 7. No evidence of coarctation of aorta. 8. No ??pericardial effusion. Procedure Note Sarah Vega M.D. - 09/16/2021Form atting of this note might be different from the original. For the complete report, see the Order-L trippiece Documents. Final Impressions 1. Bicuspid aortic valve (fusion of the right and left cusps). Trivial aortic valve regurgitation. No aortic valve stenosis. 2. Normal left ventricular chamber size , calculated ejection fraction 64%. 3. Normal left ventricular diastolic fun ction. 4. Normal right ventricular chamber size and systolic function. 5. Estimated right ventricular systolic pressure 28 mmHg (systolic blood pressure 113 mmHg). 6. Normal inferior vena cava size with n ormal inspiratory collapse (>50%). 7. No evidence of coarctation of aorta. 8. No pericardial effusion. Findings LEFT VENTRICLE:Normal left ventricular c hamber size. Normal left ventricular wall thickness. Calculated 2-D linear left ventricular ejection fraction 64%. Left ventricular volumetric assessment not performed because of image quality. No r egional wall motion abnormalities. Normal left ventricular diastolic function. RIGHT VENTRICLE:Normal right ventricular chamber size. Normal right ventricular systolic function. Estimated right ventricular systolic pressure 28 mmHg (systolic blood pressure 113 mmHg). ATRIA:Normal left atrial size. Normal ri ght atrial size. CARDIAC VALVES:Bicuspid aortic valve. No aortic valve stenosis. Trivial aortic valve regurgitation. Normal mitral valve. Trivial mitral valve regurgitation. Normal pulmonary valve. Trivial pulmonary valve regurgitation. Normal tricuspid valve. T rivial tricuspid valve regurgitation. OTHER ECHO FINDINGS:Normal inferior vena cava size with normal inspiratory collapse (>50%). Normal ascending aorta diameter. No abdominal aortic aneurysm. Normal abdominal aorta Doppler flow pattern. No atrial level shunt by color flow imaging. No evidence of coarctation of aorta. No intracardiac mass or thrombus, but the left atrial appendage cannot be visualized adequately with transthoracic echo to exclude thrombus in this location. No pericardial effusion. For the complete report, see the Order-L evel Documents. Americo Bear M.D. CV ECHO PROCEDURES documented in this encounter Visit Diagnoses Diagnosis Bicuspid Aortic Valve (HCC) documented in this encounter Additional Health Concerns Assessment Noted Time PHQ-9 Depression Total Score: 8 10/13/2017 12:58 PM CD T documented as of this encounter Care Teams Hydration Plant Operator Relationship Specialty Start Date End Date Chaparro Payan P.A.-C. PCP - General 02/05/[address] [place] [phone] documented as of this encounter
--- OUTSIDE RECORDS SUMMARY | 2022-01-23 12:49 | XMS_ITS | Encounter Summary ---
:2000 Author Organization [facility] Address [address] [place] [address] Care Team Providers Name Role Phone Chaparro Payan P.A.-C. Primary Care Provider [phone] Reason for Visit Reason Onset Date Comments Outpatient COVID-19 Testing 02/28/2020 Encounter Details Date Type Department Care Team Description 02/28/2020 External Outreach [facility] [place], [place] [facility] ([place] [address] [facility] [address]) DR Génesis [facility], [place] [phone] Social History Tobacco Use Types Packs/Day Years [...] 08/02/2020 relatives? How often do you attend jain or bahai 1 to 4 times per year 08/02/2020 services? Do you belong to any clubs or organizations such No 08/02/2020 as jain groups, unions, fraternal or athletic groups, or [...] documented as of this encounter Progress Notes Mónica Kan L.P.N. - 02/28/2020 10:44 AM CDT Encounter created for the drive-through COVID-19 testing. documented in this encounter Plan of Treatment Not on filedocumented as of this encounter Procedures Procedure Name Priority Date/Time Associated Diagnosis Comme nts SARS CORONAVIRUS-2 STAT 02/28/2020 12:06 PM Infection Upper Results for this RNA, V CDT Respiratory procedure are i n the results section. documented in this encounter Results SARS Coronavirus-2 RNA, V Symptomatic (02/28/2020 12:06 PM CDT) [facility] Method Time Signature SARS-CoV-2 Swab, 02/29/2020 MKTO Specimen Nasopharynx 4:25 AM CDT Source SARS CoV-2 Undetected Undetected 02/29/2020 MKTO RNA, TMA 4:25 AM CDT Comment: SARS-CoV-2 RNA absent. This result does not rule out COVID-19 in the patient, as the sensitivity of the test depends o n the timing of the specimen collection and the quality of the specim en. Result should be correlated with patient's history and clinical presentat ion. ----ADDITIONAL INFORMATION---- This test is performed using the Aptima SARS-CoV-2 assay ([employer] which has received Emergency Use Authori zation (EUA) by the U.S. Food and Drug Administration. Fact sheets for this Emergency Use Autho rization (EUA) assay can be found at the following links: For Healthcare Providers: https://www.fd a.gov/media/475929/download For Patients: https://www.fda.gov/media/ 136060/download Specimen Anatomical Collection Method Collection Time Receive d Time (Source) Location / / Volume Laterality Varies 02/28/2020 12:06 02/28/2020 7:35 (Nasopharynx) PM CDT PM CDT Kee Kemp P.A.-C. LAB MICROBIOLOGY - GENERAL O JIMMY Performing Organization Address City/State/ZIP Code Phon e Number [facility] [place] [address] [facility] [place] [place] [address] System in [place] [address] [place] [address] documented in this encounter Visit Diagnoses Diagnosis Infection Upper Respiratory - Primary documented in this encounter Additional Health Concerns Infection Onset Date Last Indicated Resolved Time COVID19 Pending 02/28/2020 02/28/2020 02/29/2020 4:25 AM CDT Assessment Noted Time PHQ-9 Depression Total Score: 8 10/13/2017 12:58 PM CD T documented as of this encounter Care Teams Store Standards Associate Relationship Specialty Start Date End Date Chaparro Payan P.A.-C. PCP - General 02/05/18 [address] [place] [phone] documented as of this encounter
--- OUTSIDE RECORDS SUMMARY | 2022-01-23 12:49 | XMS_ITS | Encounter Summary ---
:2000 Author Organization [facility] Address [address] [place] [address] Care Team Providers Name Role Phone Chaparro Payan P.A.-C. Primary Care Provider Encounter Details Date Type Department Care Team Description 08/25/2021 Orders Only Department of Mónica Noe High Risk Obstetrics and J, R.N. (Primary Dx) Gynecology in [address] [place] [address] [place] [phone] [place], [place] [phone] (Work) [phone] Social History Tobacco Use Types Packs/Day Years [...] 08/02/2020 relatives? How often do you attend pentecostal or congregational 1 to 4 times per year 08/02/2020 services? Do you belong to any clubs or organizations such No 08/02/2020 as pentecostal groups, unions, fraternal or athletic groups, or [...] Not on filedocumented as of this encounter Results US OB Follow-up and or Growth Abel (09/16/2021 8:30 AM CDT) Anatomical Region Laterality Modality Body, Ultrasound OB RST LOS, Ultrasound ARZ LOS N/A Ultrasound Specimen (Source) Anatomical Location Collection Method / Collectio n Time Received Time / Laterality Volume Narrative 09/16/2021 9:04 AM CDT CITLALY HOLLAND OB Exam, 09/16/2021 EXAM INFORMATION Patient Name: ??CITLALY HOLLAND : ??2000 Age: ??20 yrs Sex: ??Female Ref Phys: ??AMERICO BEAR Exam Date: 09/16/2021 Procedure: US OB FOLLOW-UP AND OR GROWTH ABEL Exam Site: [id number] Plurality: 1 OBHx: [G:(1)] ?F [...] Read by Wing Willett on 8:30:37 AM. Shrimp Peeling Machine Tender: ??Wing Willett Thank You For This Referral Procedure Note Yvonne Sanchez M.D. - 09/16/2021Forma tting of this note might be different from the original. CITLALY HOLLAND OB Exam, 09/16/2021 EXAM INFORMATION Patient Name: CITLALY HOLLAND : 2000 Age: 20 yrs Sex: Female Ref Phys: AMERICO BEAR Exam Date: 09/16/2021 Procedure: US OB FOLLOW-UP AND OR GROWTH ABEL Exam Site: [id number] Plurality: 1 OBHx: [G:(1)] F [...] Read by Wing Willett on 8:30:37 AM. Shrimp Peeling Machine Tender: Wing Willett Thank You For This Referral Americo Bear M.D. IMG OB US PROCEDURES documented in this encounter Visit Diagnoses Diagnosis High Risk (HCC) - Primary High Risk (HCC) documented in this encounter Additional Health Concerns Assessment Noted Time PHQ-9 Depression Total Score: 8 10/13/2017 12:58 PM CD T documented as of this encounter Care Teams Pocket Secretary Assembler Relationship Specialty Start Date End Date Chaparro Payan P.A.-C. PCP - General 02/05/[address] [place] [phone] documented as of this encounter
--- OUTSIDE RECORDS SUMMARY | 2022-01-23 12:49 | XMS_ITS | Encounter Summary ---
:2000 Author Organization [facility] Address [address] [place] [address] Care Team Providers Name Role Phone Chaparro Payan P.A.-C. Primary Care Provider [phone] Encounter Details Date Type Department Care Team Description 02/28/2021 Immunization Department of [facility] Reed Barillas For COVID-19 Medicine, Chandrakant Walls M.D. Vaccine Immunization Clinic, in [address] [address] [place], [place] [phone] (Work) [phone] Social History Tobacco Use Types Packs/Day Years [...] 08/02/2020 relatives? How often do you attend confucianist or jewish 1 to 4 times per year 08/02/2020 services? Do you belong to any clubs or organizations such No 08/02/2020 as confucianist groups, unions, fraternal or athletic groups, or [...] minutes do you engage in exercise at is 20 min 08/02/2020 level? Stress Answer [...] as of this encounter Visit Diagnoses Diagnosis Encounter For COVID-19 Vaccine Immunizat ion documented in this encounter Additional Health Concerns Assessment Noted Time PHQ-9 Depression Total Score: 8 10/13/2017 12:58 PM CD T documented as of this encounter Care Teams Entomology Teacher Relationship Specialty Start Date End Date Chaparro Payan P.A.-C. PCP - General 02/05/[address] [place] [phone] documented as of this encounter
--- OUTSIDE RECORDS SUMMARY | 2022-01-23 12:49 | XMS_ITS | Encounter Summary ---
:2000 Author Organization [facility] Address [address] [place] [address] Care Team Providers Name Role Phone Chaparro Payan P.A.-C. Primary Care Provider [phone] Reason for Visit Reason Comments COVID Inquiry Encounter Details Date Type Department Care Team Description 06/23/2020 Clinical [facility] [place] [facility] Inquiry Cardiovascular Surgery Provider in [place], [place] [address] [place] [address] Social History Tobacco Use Types Packs/Day Years [...] 08/02/2020 relatives? How often do you attend sabianist or restorationism 1 to 4 times per year 08/02/2020 services? Do you belong to any clubs or organizations such No 08/02/2020 as sabianist groups, unions, fraternal or athletic groups, or [...] on file documented as of this encounter Miscellaneous Notes Telephone Encounter - Luisa Bobo - 06/23/2020 12:07 PM CST What is the purpose of the call?: Requesting Testing Only Request Testing In the past 14 days are any of the following symptoms new to you and not related to an existing health condition?: No symptoms noted In the past 14 days have you had close contact* with a person who has a LABORATORY CONFIRMED case ofCOVID-19?: Yes exposure noted. [place] patient, instruct to quarantine, testing indicated (End Screening) Testing Recommendation Endpoint Is testing recommended? : Recommended to test Plan: Endpoint recommendation: Testing indicated, advised to be swabbed for COVID-19 Only , sent to [facility] located at [address] [place] [address]. The entrance is on the north side of the building. You must call [phone] for an appointment time.Testing hours are Daily 9 am to 5 pm.When you arrive at the testing site: Remain in your vehicle and check-in by phone using the same appointment line number. and Pleaseavoid using public transportation per CDC recommendation. If you do not have personal transportationplease self-quarantine until a personal transportation option is available. *Reminder if sending patient for testing in [facility] or [facility], route encounter to the correct testing pool. ITE ADMIN documented in this encounter Plan of Treatment Not on filedocumented as of this encounter Visit Diagnoses Not on filedocumented in this encounter Additional Health Concerns Infection Onset Date Last Indicated Resolved Time COVID19 Pending 06/23/2020 06/23/2020 06/24/2020 2:18 PM WEBSITE ADMIN Assessment Noted Time PHQ-9 Depression Total Score: 8 10/13/2017 12:58 PM CD T documented as of this encounter Care Teams Kier Pleater Relationship Specialty Start Date End Date Chaparro Payan P.A.-C. PCP - General 02/05/[address] [place] [phone] documented as of this encounter
--- OUTSIDE RECORDS SUMMARY | 2022-01-23 12:49 | XMS_ITS | Encounter Summary ---
:2000 Author Organization [facility] Address [address] [place] [address] Care Team Providers Name Role Phone Chaparro Payan P.A.-C. Primary Care Provider [phone] Reason for Referral Outpatient (Routine) - Closed Specialty Diagnoses / Procedures Referred By Contact Refer red To Contact Diagnoses Bicuspid Aortic Valve (HCC) Americo Bear M.D. [facility] Procedures Echo Transthoracic (TTE) - Adult Congenital [address] [place] [phone] Referral ID Status Reason Start Date Expiration Date Visits Requ ested Visits Authorized [id number] Closed 09/11/2021 09/11/2022 1 1 Reason for Visit Appointment Request (Routine) - Authorized Specialty Diagnoses / Procedures Referred By Contact Refer red To Contact Maternal and Diagnoses Bicuspid Aortic Valve (HCC) Abnormal Ultrasound [facility] Sonya Gilliland.NGurdeep [address] [place] [address] Referral ID Status Reason Start Date Expiration Date Visits V isits Requested Authorized [id number] Authorized 08/25/2021 08/25/2022 3 3 Encounter Details Date Type Department Care Team Description 09/16/2021 Routine Department of Americo Bear Bicuspid Aortic Valve Obstetrics and Silvio (HCC) (Primary Dx) Gynecology in [address] [place], [place] [address] [place] [phone] [place], [place] [phone] (Work) [phone] Social History Tobacco Use Types Packs/Day Years [...] 08/02/2020 relatives? How often do you attend worship or mandaeism 1 to 4 times per year 08/02/2020 services? Do you belong to any clubs or organizations such No 08/02/2020 as worship groups, unions, fraternal or athletic groups, or [...] ??F) 09/16/2021 8:36 AM CDT Respiratory Rate - - Oxygen Saturation 100% 09/16/2021 8:36 AM CDT Inhaled Oxygen Concentration - - Weight 86.6 kg (190 lb 14.7 oz) 09/16/2021 8:36 AM CDT Height 160 cm (5' 2.99) 09/16/2021 8:36 AM CDT Body Mass Index 33.83 09/16/2021 8:36 AM CDT documented in this encounter Consult Notes Americo Bear M.D. - 09/16/2021 9:00 AM CDT #1 Intrauterine at 14 1/7 weeks #2 Maternal bicuspid aortic valve (no evidence of stenosis or aortic dilation) #3 Penicillin allergy (rash) Very pleasant 20y/o with LMP 06/09/21 EMILEE 03/16/22 consistent with 9 week scan EGA 14 06/06 weeks who is referred for the indication of maternal bicuspid aortic valve. Transthoracic echocardiography in 2018 showed a bicuspid aortic valve without evidence is stenosis (trivial regurgitation), LVEF 59%, and normal ascending aortic dimension (sinus of valsalva 29mm). The current has been complicated only by a recent urinary tract infection; clinically Mrs.Moreno Vallejo will occasionally note chest discomfort, possibly related to anxiety. 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 Mrs. Angelo Vallejo's twin sister(also born at 29 weeks secondary to twin-twin transfusion syndrome) also has a bicuspid aortic valve; there are no other known genetic syndromes or congenital anomalies in her family. Ultrasound today demonstrates a jensen intrauterine . Imaging is limited by early gestational age, but no anomalies are visualized. All individual biometric parameters are consistent with gestational age. In addition to routine care: Antepartum: 1. Maternal echocardiography to provide contemporary evaluation of aortic valve status and ascendingaortic dimension. 2. Detailed anatomic survey ultrasound at 18-20 weeks gestation; on discussion with my Pediatric Cardiology colleagues, if all cardiac views (4-chamber, outflow tracts, and great arches) are optimal and appear normal, in this scenario echocardiography would be considered optional andexclusively echocardiography could be considered. Otherwise echocardiography would be recommended at 22-24 weeks gestation. If all of the above are normal, I would suggest managing the per routine, with repeat maternal echocardiography prior to future conception. If any concerns arise (or there are any abnormal findings on imaging), I would suggest return consultation. Americo Bear M.D. Addendum (1721): Spoke with Mrs. Angelo Vallejo regarding normal maternal echocardiography results. CHR documented in this encounter Plan of Treatment Not on filedocumented as of this encounter Results (TTE) CONGENITAL 2D WITH COLOR AND DOPPLER (09/16/2021 1:54 PM CDT) [facility] Method Time Signature Ejection Fraction 64 MC [...] original. For the complete report, see the Radionomy-L WeStudy.In Documents. Final Impressions 1. Bicuspid aortic valve [...] Diagnosis Bicuspid Aortic Valve (HCC) - Primary Bicuspid Aortic Valve (HCC) documented in this encounter Additional Health Concerns Assessment Noted Time PHQ-9 Depression Total Score: 8 10/13/2017 12:58 PM CD T documented as of this encounter Care Teams Skin Therapist Relationship Specialty Start Date End Date Chaparro Payan P.A.-C. PCP - General 02/05/[address] [place] [phone] documented as of this encounter
--- OUTSIDE RECORDS SUMMARY | 2022-01-23 12:49 | XMS_ITS | Encounter Summary ---
:2000 Author Organization [facility] Address [address] [place] [address] Care Team Providers Name Role Phone Chaparro Payan P.A.-C. Primary Care Provider [phone] Reason for Visit Reason Onset Date Comments Testing For Upper Respiratory Virus Symptoms 06/23/2020 Encounter Details Date Type Department Care Team Description 06/23/2020 External Outreach Department of [facility] And Internal Medicine in [place], D.[place]ettie (Suspected) Exposure [place], [place] [address] [place] [address] To COVID-19 (Primary [address] [place], [place] Dx) [place] [phone] Social History Tobacco Use Types Packs/Day Years [...] 08/02/2020 relatives? How often do you attend yarsanism or episcopal 1 to 4 times per year 08/02/2020 services? Do you belong to any clubs or organizations such No 08/02/2020 as yarsanism groups, unions, fraternal or athletic groups, or [...] documented as of this encounter Progress Notes Kee Hair R.N. - 06/23/2020 12:16 PM CST Encounter created for symptomatic infectious disease screening with possible COVID, Influenza, RSV, and/or Group A Strep testing. TURNER MACHINE OPERATOR documented in this encounter Plan of Treatment Not on filedocumented as of this encounter Procedures Procedure Name Priority Date/Time Associated Diagnosis Comme nts SARS CORONAVIRUS-2 Routine 06/23/2020 1:35 PM Contact With And Results for this RNA, V CUFF TURNER MACHINE OPERATOR (Suspected) Exposure procedu re are in To COVID-19 the results section. documented in this encounter Results SARS Coronavirus-2 RNA, V Symptomatic (06/23/2020 1:35 PM CUFF TURNER MACHINE OPERATOR) [facility] Method Time Signature SARS-CoV-2 Swab, 06/24/2020 MKTO Specimen Nasopharynx 2:17 PM CUFF TURNER MACHINE OPERATOR Source SARS CoV-2 Undetected Undetected 06/24/2020 MKTO RNA, TMA 2:17 PM CUFF TURNER MACHINE OPERATOR Comment: SARS-CoV-2 RNA absent. This result does not rule out COVID-19 in the patient, as the sensitivity of the test depends o n the timing of the specimen collection and the quality of the specim en. Result should be correlated with patient's history and clinical presentat ion. ----ADDITIONAL INFORMATION---- This molecular amplification test was pe rformed using the Aptima SARS-CoV-2 assay ([employer] on the [employer] tem under emergency use authorization (EUA) by the U.S. Food and Drug Administ ration. Fact sheets for this EUA assay can be fo und at the following links: For Healthcare Providers: https://www.fd a.gov/media/941179/download For Patients: https://www.fda.gov/media/ 303763/download Specimen Anatomical Collection Method Collection Time Receive d Time (Source) Location / / Volume Laterality Varies 06/23/2020 1:35 PM 6:28 (Nasopharynx) CUFF TURNER MACHINE OPERATOR AM CUFF TURNER MACHINE OPERATOR Wood Guzman D.O. LAB MICROBIOLOGY - GENERAL O RDERABLES Performing Organization Address City/State/ZIP Code Phon e Number [facility]- [address] [place] [address] [place] [address] System in [place] [address] [place] [address] documented in this encounter Visit Diagnoses Diagnosis Contact With And (Suspected) Exposure To COVID-19 - Primary documented in this encounter Additional Health Concerns Infection Onset Date Last Indicated Resolved Time COVID19 Pending 06/23/2020 06/23/2020 06/24/2020 2:18 PM CUFF TURNER MACHINE OPERATOR Assessment Noted Time PHQ-9 Depression Total Score: 8 10/13/2017 12:58 PM CD T documented as of this encounter Care Teams Compressed Yeast Supervisor Relationship Specialty Start Date End Date Chaparro Payan P.A.-C. PCP - General 02/05/[address] [place] [phone] documented as of this encounter
--- OUTSIDE RECORDS SUMMARY | 2022-01-23 12:49 | XMS_ITS | Encounter Summary ---
:2000 Author Organization [facility] Address [address] [place] [address] Care Team Providers Name Role Phone Chaparro Payan P.A.-C. Primary Care Provider [phone] Encounter Details Date Type Department Care Team Description 03/28/2020 Admin Visit Department of Family Medicine, [address] [address] Formerly named [facility] [phone] Social History Tobacco Use Types Packs/Day Years [...] 08/02/2020 relatives? How often do you attend yazidi or restorationist 1 to 4 times per year 08/02/2020 services? Do you belong to any clubs or organizations such No 08/02/2020 as yazidi groups, unions, fraternal or athletic groups, or [...] Date Last Indicated Resolved Time COVID19 Pending 03/27/2020 03/28/2020 03/29/2020 10:23 PM CDT Assessment Noted Time PHQ-9 Depression Total Score: 8 10/13/2017 12:58 PM CD T documented as of this encounter Care Teams Automatic Gluing Machine Operator Relationship Specialty Start Date End Date Chaparro Payan P.A.-C. PCP - General 02/05/[address] [place] [phone] documented as of this encounter
--- OUTSIDE RECORDS SUMMARY | 2022-01-23 12:49 | XMS_ITS | Encounter Summary ---
:2000 Author Organization [facility] Address [address] [place] [address] Care Team Providers Name Role Phone Chaparro Payan P.A.-C. Primary Care Provider [phone] Encounter Details Date Type Department Care Team Description 06/23/2020 Admin Visit Department of Family Medicine, [address] [address] [facility] [phone] Social History Tobacco Use Types Packs/Day Years [...] 08/02/2020 relatives? How often do you attend oriental orthodox or samaritan 1 to 4 times per year 08/02/2020 services? Do you belong to any clubs or organizations such No 08/02/2020 as oriental orthodox groups, unions, fraternal or athletic groups, or [...] COVID19 Pending 06/23/2020 06/23/2020 06/24/2020 2:18 PM RN OUTPATIENT SURGERY Assessment Noted Time PHQ-9 Depression Total Score: 8 10/13/2017 12:58 PM CD T documented as of this encounter Care Teams Reviewer Sales Relationship Specialty Start Date End Date Chaparro Payan P.A.-C. PCP - General 02/05/[address] [place] [phone] documented as of this encounter
--- OUTSIDE RECORDS SUMMARY | 2022-01-23 12:49 | XMS_ITS | Encounter Summary ---
:2000 Author Organization [facility] Address [address] [place] [address] Care Team Providers Name Role Phone Chaparro Payan P.A.-C. Primary Care Provider [phone] Reason for Visit Reason Comments Missed phone Encounter Details Date Type Department Care Team Description 09/10/2021 Clinical Communication Department of Americo Bear Mis sed phone Obstetrics and M.D. Gynecology in [address] [place] [address] [place] [phone] [place], [place] [phone] (Work) [phone] Social History Tobacco Use Types Packs/Day Years [...] 08/02/2020 relatives? How often do you attend buddhist or zoroastrian 1 to 4 times per year 08/02/2020 services? Do you belong to any clubs or organizations such No 08/02/2020 as buddhist groups, unions, fraternal or athletic groups, or [...] this encounter Miscellaneous Notes Telephone Encounter - Mónica Field RNayely. - 09/10/2021 3:36 PM CDT CHIEF COMPLAINT / REASON FOR CALL Communication (Pre-visit intake) Manager Of Distribution: no INFORMATION DISCUSSED Patient contacted for chart review for upcoming appointment. PLAN Education: patient/caller able to teach back Caller agreeable to plan of care: yes The following references were used: none Telephone Encounter - Alexandrea Barraza - 09/10/2021 2:05 PM CDT Patient is returning a nurse call she states she will be available after 3:00 p.m. documented in this encounter Plan of Treatment Not on filedocumented as of this encounter Visit Diagnoses Not on filedocumented in this encounter Additional Health Concerns Assessment Noted Time PHQ-9 Depression Total Score: 8 10/13/2017 12:58 PM CD T documented as of this encounter Care Teams Wire Coiler Relationship Specialty Start Date End Date Chaparro Payan P.A.-C. PCP - General 02/05/[address] [place] [phone] documented as of this encounter
--- OUTSIDE RECORDS SUMMARY | 2022-01-23 12:49 | XMS_ITS | Encounter Summary ---
:2000 Author Organization [facility] Address [address] [place] [address] Care Team Providers Name Role Phone Chaparro Payan P.A.-C. Primary Care Provider [phone] Reason for Referral Outpatient (Routine) - Closed Specialty Diagnoses / Procedures Referred By Contact Refer red To Contact Family Medicine Chaparro Payan P. A.-C. [address] [phone] Referral ID Status Reason Start Date Expiration Date Visits Requ ested Visits Authorized [id number] Closed 08/02/2020 08/02/2021 1 1 TY SALES ADVISOR Reason for Visit Reason Comments Annual Exam No concerns at this time. Appointment Request (Routine) - Closed Specialty Diagnoses / Procedures Referred By Contact Refer red To Contact Family Medicine Referral ID Status Reason Start Date Expiration Date Visits Requ ested Visits Authorized [id number] Closed 07/26/2020 07/26/2021 1 1 Encounter Details Date Type Department Care Team Description 08/02/2020 Comprehensive Visit Department of Shadia Payan Aortic Valve (HCC) (Primary Dx); Chaparro Rock P.A.-C. General Medical Examination Adult; [facility], [address] [place] [address] Pap Smear Examination; in [place], [place] Screening For Venereal Disease; [place] [address] [place] [address] [phone] [place], [place] (Work) [phone] Social History Tobacco Use Types Packs/Day Years [...] 08/02/2020 relatives? How often do you attend zoroastrianism or islam 1 to 4 times per year 08/02/2020 services? Do you belong to any clubs or organizations such No 08/02/2020 as zoroastrianism groups, unions, fraternal or athletic groups, or [...] Sign Reading Time Taken Comments Blood Pressure 98/64 08/02/2020 2:23 PM BEAUTY SALES ADVISOR Pulse 84 08/02/2020 2:23 PM BEAUTY SALES ADVISOR Temperature 36.9 ??C (98.4 ??F) 08/02/2020 2:23 PM BEAUTY SALES ADVISOR Respiratory Rate 16 08/02/2020 2:23 PM BEAUTY SALES ADVISOR Oxygen Saturation - - Inhaled Oxygen Concentration - - Weight 88.5 kg (195 lb 1.7 oz) 08/02/2020 2:23 PM BEAUTY SALES ADVISOR Height 161.1 cm (5' 3.43) 08/02/2020 2:23 PM BEAUTY SALES ADVISOR Body Mass Index 34.1 08/02/2020 2:23 PM BEAUTY SALES ADVISOR documented in this encounter H&P Notes Chaparro Payan P.A.-C. - 08/02/2020 2:30 PM CST CHIEF COMPLAINT / REASON FOR VISIT Citlaly Vallejo is a 19 y.o. female who presents for evaluation of Annual Exam (No concerns atthis time. ). HISTORY OF PRESENT ILLNESS Citlaly presents today for complete history and physical. She was in the emergency room about a weekago with some abdominal discomfort she had a CT scan that did show any abnormalities. Likely this was an ovarian cyst her symptoms completely resolved after she had her menses a couple days after that.She has been sexually active with her boyfriend and is not using anything for contraception althoughharrison does not want to get . We had a long discussion about this and the fact that she will likely get if she does not use some form of contraception. She has a history of a bicuspid aortic valve and this has not given her any problems. PAST MEDICAL HISTORY: Patient Active Problem List Diagnosis ??? Overweight Body Mass Index 25-29.9 Adult ??? Bicuspid Aortic Valve (HCC) PAST SURGICAL HISTORY: Past Surgical History: Procedure Laterality Date ??? LAPAROTOMY 1998 Small bowel resection: end ileostomy. ??? LAPAROTOMY 01/29/1999 >Ostomy takedown. ??? TONSILLECTOMY 2004 SOCIAL HISTORY: Social History Tobacco Use ??? Smoking status: Never Smoker ??? Smokeless tobacco: Never Used Substance Use Topics ??? Alcohol Use Frequency: Monthly or less Drinks per session: 1 or 2 Binge frequency: Never ??? Drug use: Not on file FAMILY HISTORY: No family history on file. REVIEW OF SYSTEMS: General: Denies recent fever, weight loss, or extreme fatigue. Eyes: Denies double vision or sudden loss of vision. ENT: Denies sore throat, runny nose, ear pain, or hearing loss. Heart:: Denies chest pain or irregular heartbeats. Respiratory: Denies cough, wheezing, shortness of breath. Digestion: Denies nausea, vomiting, diarrhea or constipation. Genito/Urinary: Denies frequent or painful urination. Skin: Denies rash, sores, excessive bruising, or change of a mole. Nerves/Brain: Denies headache, persistent weakness or numbness. Endocrine: Denies excessive thirst or urination, cold or heat intolerance. Blood: Denies unusual bruising or bleeding or enlarged lymph nodes. MEDICATIONS: Current Outpatient Medications Medication Sig Dispense Refill ??? acetaminophen (TYLENOL) 500 mg capsule Take 1,000 mg by mouth. ??? ibuprofen (ADVIL,MOTRIN) 200 mg tablet Take 800 mg by mouth. ??? norgestimate-ethinyl estradioL (Ortho-Cyclen, 28,) 0.25- mg-35 mcg per tablet Take 1 tablet by mouth daily. 84 tablet 12 No current facility-administered medications for this visit. ALLERGIES: Allergies Allergen Reactions ??? Penicillins Rash OBJECTIVE Vitals: 08/02/20 1423 BP: 98/64 BP Location: Left arm Patient Position: Sitting Cuff Size: Regular Pulse: 84 Resp: 16 Temp: 36.9 ??C TempSrc: Temporal Weight: 88.5 kg Height: 161.1 cm Body mass index is 34.1 kg/m??. PHYSICAL EXAMINATION General: Patient appears in no acute distress. ENT: TMs no erythema. Throat no erythema. Neck: No lymphadenopathy. No thyroid masses. Heart: Regular rate and rhythm. No murmurs. Lungs: Clear to auscultation. Breasts: Symmetrical. No lumps appreciated. No axillary lymph nodes palpable. Abdomen: Soft and nontender to palpation. Genitalia: Normal external female genitalia. Pap smear was obtained. Bimanual exam showed no cervical motion tenderness. Skin: She has 2 small nevi on her anterior chest 1 is approximately 3 mm the other 1 is about 1 mm the 3 mm lesion is very dark with irregular borders and she says that has increased in size somewhat IMPRESSION / REPORT / PLAN #1 Bicuspid Aortic Valve (HCC) This has been stable I reviewed her cardiology note #2 General Medical Examination Adult She has gained some weight she realizes she needs to get more exercise she will continue to work on this #3 Pap Smear Examination I will notify her when I get the results of her Pap smear. We did discuss contraception and she is going to try an oral contraceptive. I called in Ortho Cyclen and explained how to take this #4 Screening For Venereal Disease We also did a gonorrhea and chlamydia screen #5 Nevus She is going to come back for removal of this nevus at a later date. Chaparro Payan P.A.-C. TY SALES ADVISOR documented in this encounter Plan of Treatment Scheduled Referrals Name Type Priority Associated Diagnoses Order S [facility] Medicine Outpatient Referral Routine Expec sonal: office visit 08/02/2020 (clinic) (Approximate), Expires: 08/03/2023 documented as of this encounter Procedures Procedure Name Priority Date/Time Associated Diagnosis Comme nts CHLAMYDIA/GONORRHOE Routine 08/02/2020 3:32 PM Pap Smear Re sults for this AE AMPLIFIED RNA BEAUTY SALES ADVISOR Examination procedure are in Screening For the results Venereal Disease section. THINPREP SCREEN Routine 08/02/2020 3:30 PM Pap Smear Result s for this BEAUTY SALES ADVISOR Examination procedure are in Screening For the results Venereal Disease section. documented in this encounter Results Chlamydia / Gonorrhoeae Amplified RNA (08/02/2020 3:32 PM BEAUTY SALES ADVISOR) Patholo gist Method Time Signature Source Thin Prep 08/07/2020 DTL Vial, 5:29 PM BEAUTY SALES ADVISOR Cervix/Endoc ervix Chlamydia Negative Negative 08/07/2020 DTL trachomatis 5:29 PM BEAUTY SALES ADVISOR amplified RNA Source Thin Prep 08/07/2020 DTL Vial, 5:29 PM BEAUTY SALES ADVISOR Cervix/Endoc ervix Neisseria Negative Negative 08/07/2020 DTL gonorrhoeae 5:29 PM BEAUTY SALES ADVISOR amplified RNA Specimen Anatomical Collection Method Collection Time Receive d Time (Source) Location / / Volume Laterality Varies 08/02/2020 3:32 PM (Cervix/Endocerv BEAUTY SALES ADVISOR 10:15 AM CS T ix) Chaparro Payan P.A.-C. LAB MICROBIOLOGY - GENERAL O RDERABLES Performing Organization Address City/State/ZIP Code Phon e Number [facility] - [address] [place] [phone] [facility] [place] [address] Laboratories-[facility] [address] [facility] ThinPrep Screen (08/02/2020 3:30 PM BEAUTY SALES ADVISOR) Component Value Ref Test Analysis Performed Pathologis t Range Method Time At Signature 08/13/2020 [facility] 9:16 AM CDT Pap Test Source Cervical/Endocervi 08/13/2020 [facility] gumaro 9:16 AM CDT Gross Description Received specimen 08/13/2020 [facility] Y in a ThinPrep 9:16 AM vial. CDT Clinical History well women exam 08/13/2020 [facility] 9:16 AM CDT Menstrual unknown 08/13/2020 [facility] Status(LMP, PM, 9:16 AM ) CDT Hormone None/Not known 08/13/2020 [facility] Therapy/Contracep 9:16 AM tives CDT Report BRIAN Ward(ASCP) 08/13/2020 [facility] electronically I verify that I have examined all relevant slides/ma terials 9:16 AM signed by for the specimen(s) and rendered or confirmed the diagnosis. CDT Interpretation Cervical/Endocervical ??(ThinPrep): 08/13/2020 [facility] Satisfactory for Evaluation 9:16 AM Negative for Intraepithelial Lesion or Malignancy CDT Specimen Anatomical Collection Method Collection Time Receive d Time (Source) Location / / Volume Laterality Varies 08/02/2020 3:30 PM 9:06 (Cervix/Endocerv BEAUTY SALES ADVISOR AM BEAUTY SALES ADVISOR ix) Narrative This result has an attachment that is no t available. Chaparro Payan P.A.-C. LAB PAP PATHDX ORDERABLES Performing Organization Address City/State/ZIP Code Phon e Number [facility]- [facility] [address] [place] [address] [facility] [address] [place] [address] documented in this encounter Visit Diagnoses Diagnosis Bicuspid Aortic Valve (HCC) - Primary General Medical Examination Adult Pap Smear Examination Screening For Venereal Disease Nevus documented in this encounter Additional Health Concerns Assessment Noted Time PHQ-9 Depression Total Score: 8 10/13/2017 12:58 PM CD T documented as of this encounter Care Teams Snuff Container Inspector Relationship Specialty Start Date End Date Chaparro Payan P.A.-C. PCP - General 02/05/[address] [place] [phone] documented as of this encounter
--- OUTSIDE RECORDS SUMMARY | 2022-01-23 12:49 | XMS_ITS | Encounter Summary ---
:2000 Author Organization [facility] Address [address] [place] [address] Care Team Providers Name Role Phone Chaparro Payan P.A.-C. Primary Care Provider Reason for Referral Specialty Diagnoses / Procedures Referred By Contact Refer red To Contact [facility] winnie [facility] Region [address] [place] [address] Referral ID Status Reason Start Date Expiration Date Visits Requ ested Visits Authorized Reason for Visit Appointment Request (Routine) - Closed Specialty Diagnoses / Procedures Referred By Contact Refer red To Contact Family Medicine Referral ID Status Reason Start Date Expiration Date Visits Requ ested Visits Authorized [id number] Closed 01/29/2021 01/29/2022 1 1 Encounter Details Date Type Department Care Team Description 02/07/2021 Immunization Department of [facility] er For COVID-19 Medicine, [place] [facility], in [facility] (Primar y Dx) [place] [address] [place] [address] Social History Tobacco Use Types Packs/Day Years [...] 08/02/2020 relatives? How often do you attend gnosticist or quaker 1 to 4 times per year 08/02/2020 services? Do you belong to any clubs or organizations such No 08/02/2020 as gnosticist groups, unions, fraternal or athletic groups, or [...] Name Type Priority Associated Diagnoses Order S chrissiedugregorio Covid immunization Outpatient Referral Routine Encounter For E xpected: office visit COVID-19 Vaccine 02/28/2021, Subsequent; Pfizer Immunization Expires: 02/08/2024 documented as of this encounter Visit Diagnoses Diagnosis Encounter For COVID-19 Vaccine Immunizat ion - Primary documented in this encounter Additional Health Concerns Assessment Noted Time PHQ-9 Depression Total Score: 8 10/13/2017 12:58 PM CD T documented as of this encounter Care Teams Metal Fabricating Inspector Relationship Specialty Start Date End Date Chaparro Payan P.A.-C. PCP - General 02/05/[address] [place] [phone] documented as of this encounter
--- OUTSIDE RECORDS SUMMARY | 2022-01-23 12:49 | XMS_ITS | Encounter Summary ---
:2000 Author Organization [facility] Address [address] [place] [address] Care Team Providers Name Role Phone Chaparro Payan P.A.-C. Primary Care Provider [phone] Reason for Visit Reason Onset Date Comments Outpatient COVID-19 Testing 03/27/2020 Encounter Details Date Type Department Care Team Description 03/27/2020 External Outreach Department of Wood Guzman Infect ion Upper Internal Medicine in J, D.O. Respiratory (Primary [place], [place] [address] Dx) [address] [place] [phone] Social History Tobacco Use Types Packs/Day Years [...] 08/02/2020 relatives? How often do you attend nondenominational or sikh 1 to 4 times per year 08/02/2020 services? Do you belong to any clubs or organizations such No 08/02/2020 as nondenominational groups, unions, fraternal or athletic groups, or [...] documented as of this encounter Progress Notes Juliana Barkley L.P.N. - 03/27/2020 2:43 PM CDT Encounter created for the drive-through COVID-19 testing. documented in this encounter Plan of Treatment Not on filedocumented as of this encounter Procedures Procedure Name Priority Date/Time Associated Diagnosis Comme nts SARS CORONAVIRUS-2 Routine 03/28/2020 3:08 PM Infection Upper Results for this RNA, V CDT Respiratory procedure are i n the results section. documented in this encounter Results SARS Coronavirus-2 RNA, V Symptomatic (03/28/2020 3:08 PM CDT) [facility] Method Time Signature SARS-CoV-2 Swab, 03/29/2020 [facility] Specimen Nasopharynx 10:23 PM Source CDT SARS CoV-2 Undetected Undetected 03/29/2020 [facility] RNA, TMA 10:23 PM CDT Comment: SARS-CoV-2 RNA absent. This result does not rule out COVID-19 in the patient, as the sensitivity of the test depends o n the timing of the specimen collection and the quality of the specim en. Result should be correlated with patient's history and clinical presentat ion. ----ADDITIONAL INFORMATION---- This test is performed using the Aptima SARS-CoV-2 assay ([employer] which has received Emergency Use Authori zation (EUA) by the U.S. Food and Drug Administration. Fact sheets for this Emergency Use Autho rization (EUA) assay can be found at the following links: For Healthcare Providers: https://www.fd a.gov/media/773128/download For Patients: https://www.fda.gov/media/ 509235/download Specimen Anatomical Collection Method Collection Time Receive d Time (Source) Location / / Volume Laterality Varies 03/28/2020 3:08 PM 0 1:47 (Nasopharynx) CDT AM CDT Wood Guzman D.O. LAB MICROBIOLOGY - GENERAL O RDERABROOKE Performing Organization Address City/State/ZIP Code Phon e Number [facility]- [facility] [place] [address] [facility] [place] [address] System in [place] [address] [place] [address] documented in this encounter Visit Diagnoses Diagnosis Infection Upper Respiratory - Primary documented in this encounter Additional Health Concerns Infection Onset Date Last Indicated Resolved Time COVID19 Pending 03/27/2020 03/28/2020 03/29/2020 10:23 PM CDT Assessment Noted Time PHQ-9 Depression Total Score: 8 10/13/2017 12:58 PM CD T documented as of this encounter Care Teams Analytical Chemist Relationship Specialty Start Date End Date Chaparro Payan P.A.-C. PCP - General 02/05/18 [address] [place] [phone] documented as of this encounter
--- OUTSIDE RECORDS SUMMARY | 2022-01-23 12:49 | XMS_ITS | Encounter Summary ---
:2000 Author Organization [facility] Address [address] [place] [address] Care Team Providers Name Role Phone Chaparro Payan P.A.-C. Primary Care Provider [phone] Reason for Visit Reason Comments COVID Inquiry Encounter Details Date Type Department Care Team Description 07/12/2020 Clinical Communication Department of KATHIE [facility], [address] [address] [place], [place] [phone] (Work) [phone] Social History Tobacco Use Types Packs/Day Years [...] How often do you attend restoration or samaritan 1 to 4 times per [...] this encounter Miscellaneous Notes Telephone Encounter - Miriamtanisha Neelam Winter - 07/12/2020 2:41 PM CST What is the purpose of the call?: Requesting Testing Only Request Testing In the past 14 days are any of the following symptoms new to you and not related to an existing health condition?: No symptoms noted In the past 14 days have you had close contact* with a person who has a LABORATORY CONFIRMED case ofCOVID-19?: Yes exposure noted. Tamiment patient, instruct to quarantine, testing indicated (End Screening) Testing Recommendation Endpoint Is testing recommended? : Recommended to test Plan: Endpoint recommendation: Testing indicated, advised to be swabbed for COVID-19 Only , sent to [facility] located at [address] [place] [address]. The entrance is on the north side of the building. You must call [phone] during the hours of 7am to 6 pm (M-F) or 8am to 4 pm (Sat and Sun) for an appointment time. You can also schedule via your Patient Online Services account. Testing hours are 9 am to 5 pm (M-F) and 9 am to 1 pm (Sat and Sun).When you arrive at the testing site: Remain in your vehicle and check-in by phone using the same appointment line number. and Please avoid using public transportation per CDC recommendation. If you do not have personal transportation please self-quarantine until a personal transportation option is available. *Reminder if sending patient for testing in T or [facility], route encounter to the correct testing pool. MENDER documented in this encounter Plan of Treatment Not on filedocumented as of this encounter Visit Diagnoses Not on filedocumented in this encounter Additional Health Concerns Assessment Noted Time PHQ-9 Depression Total Score: 8 10/13/2017 12:58 PM CD T documented as of this encounter Care Teams Training And Development Head Relationship Specialty Start Date End Date Chaparro Payan P.A.-C. PCP - General 02/05/[address] [place] [phone] documented as of this encounter
--- OUTSIDE RECORDS SUMMARY | 2022-01-23 12:50 | XMS_ITS | Encounter Summary ---
:2000 Author Organization [facility] Address [address] [place] [address] Care Team Providers Name Role Phone Unavailable Primary Care Provider Unavailable Encounter Details Date Type Department Care Team Description 04/30/2015 Hospital Encounter HX NO MAPPING Miranda Reece APRN, C.N.P., M. S.N. [address] [place], [place] [phone] (Wo rk) Social History Tobacco Use Types Packs/Day Years Used Date Smoking Tobacco: Never Assessed Alcohol Habits Answer Date Recorded How often [...] 08/02/2020 relatives? How often do you attend zoroastrian or confucianism 1 to 4 times per year 08/02/2020 services? Do you belong to any clubs or organizations such No 08/02/2020 as zoroastrian groups, unions, fraternal or athletic groups, or [...] documented as of this encounter Miscellaneous Notes Miscellaneous - Conversion, Historical Provider Ser - 04/30/2015 11:59 PM INSTRUMENTATION DESIGNER Coding Summary-Paper Based CODING DATE: 05/13/[address] [facility] STATUS: * Discharged to Home or Self Care PAYOR: [employer] ADMIT DX: REASON FOR VISIT DX: FINAL DX: PRINCIPAL: Z11.3 Encounter for screening for infections with a predominantly sexual mode of transmission SECONDARY: PROCEDURES DOCTOR NAME DATE NOTE: The code number assigned matches the documented diagnosis and / or procedure in the patient's chart. However, the narrative phrase printed from the coding software may appear abbreviated, or result in slightly different terminology. Coded By: RADHA HOLLY Date Saved: 05/13/2015 10:25 am [facility] Document Id: [id number] documented in this encounter Plan of Treatment Not on filedocumented as of this encounter Visit Diagnoses Not on filedocumented in this encounter
--- OUTSIDE RECORDS SUMMARY | 2022-01-23 12:50 | XMS_ITS | Encounter Summary ---
:2000 Author Organization [facility] Address [address] [place] [address] Care Team Providers Name Role Phone Unavailable Primary Care Provider Unavailable Encounter Details Date Type Department Care Team Description 04/17/2011 Hospital Encounter [facility]X [facility] Norman Payan P.A.-C. [address] [place] [address] (Wo rk) Social History Tobacco Use Types [...] 08/02/2020 relatives? How often do you attend episcopal or protestant 1 to 4 times per year 08/02/2020 services? Do you belong to any clubs or organizations such No 08/02/2020 as episcopal groups, unions, fraternal or athletic groups, or [...] Sign Reading Time Taken Comments Blood Pressure - - Pulse - - Temperature - - Respiratory Rate - - Oxygen Saturation - - Inhaled Oxygen Concentration - - Weight 44.2 kg (97 lb 7.1 oz) 04/17/2011 3:56 PM CONTACT CENTER AGENT Height 149.2 cm (4' 10.74) 04/17/2011 3:56 PM CONTACT CENTER AGENT Body Mass Index 19.86 04/17/2011 3:56 PM CONTACT CENTER AGENT Body Mass Index Percentile 69.40 % 04/17/2011 3:56 PM CS T Growth Chart: [facility] (Girls, 2-20 Years) documented in this encounter Progress Notes Mikael Payan P.A.-C. - 04/17/2011 12:00 AM CST [id number] CHIEF COMPLAINT/ REASON FOR VISIT Sport's history and physical. HISTORY OF PRESENT ILLNESS Citlaly is a very pleasant 10-year-old girl who is in today with her twin sister for a sports history and physical. In general she has been in excellent health. She just recently had a well child exam by Berny. 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 The details of the sport's history and physical exam can be found on the form which we scanned into the EMR. IMPRESSION/REPORT/PLAN 1. Sport's qualifying history and physical exam. The only abnormality on her exam today was her visual acuity which is quite poor. I recommend that she follow up with an investigator vice for further evaluation and treatment of this and otherwise she may participate in sports without any restrictions. If there are any questions or problems she will let us know, otherwise follow up as needed. TLR/kln Signed [facility] Electronically Signed By: MIKAEL PAYAN PA-C On: 04/20/2011 01:49 PM Source: [facility] Document Id: [id number] ACT CENTER AGENT documented in this encounter Procedure Notes Conversion, Historical Provider Ser - 04/17/2011 4:36 PM CST Vision Testing Vision Testing Entered On: 04/17/2011 16:36 CONTACT CENTER AGENT Performed On: 04/17/2011 16:36 CONTACT CENTER AGENT by VIVIAN PEDERSEN LPN Vision Testing Corrective Lenses : None Eye, Right w/o Correction : 20/50 Eye, Left w/o Correction : 20/70 NUVIALACHO CroweSesar Castrejon LPN - 04/17/2011 16:36 CONTACT CENTER AGENT Source: [facility] Document Id: [id number] CONTACT CENTER AGENT!5 documented in this encounter Miscellaneous Notes Miscellaneous - Mikael Payan P.A.-C. - 04/17/2011 4:28 PM CST Ambulatory Patient Summary [address] [address] Visit Information Name: CITLALY HOLLAND Current Date: 04/17/2011 16:28:30 Primary Care Provider: BERNY SCHILLING CNP Your Medications Here is a list of your medications. It is important to take your medications as directed. Use a pillbox or chart to help remind you to take your medications. Please let your doctor or nurse know if you have problems taking your medications. Medication/Strength Dose Route Frequency Indications/Special Instructions/Comments ibuprofen (Advil 200 mg oral tablet) 200 mg Oral every 4 hours as needed for Pain / Fever Your Allergies & Intolerances Substance Reaction Symptoms Category Comments penicillin Drug Your Problem List Problem Status Onset Comments Well child exam Active No current problems or disability Resolved Your Recommendations We want to make sure you get the tests, immunizations, and guidance you need to stay healthy. Here is a customized list of recommendations, based on information we have in your medical record. Your doctor may have additional recommendations for you, based on your personal medical history and risk factors. You can help us by calling us to make an appointment when you are due for your tests. Additional information regarding recommendations: Test/Treatment Last Done Next Due Additional Information No Health Maintenance records were found Your Upcoming Appointments Date Time Location Reason Provider No Appointments found Your Goals/Additional instructions: Source: [facility] Document Id: [id number] ACT CENTER AGENT Miscellaneous - Mikael Payan P.A.-C. - 04/17/2011 4:28 PM CST Ambulatory Depart Summary [address] [address] Visit Information Name: CITLALY HOLLAND Current Date: 04/17/2011 16:28:29 Primary Care Provider: BERNY SCHILLING CNP CITLALY HOLLNAD has been given the following list of medications: Your Medications It is important to take your medications as directed. Use a pill box or chart to help remind you to take your medications. Please let your doctor or nurse know if you have problems taking your medications. Medication/Strength Dose Route Frequency Indications/Special Instructions/Comments ibuprofen (Advil 200 mg oral tablet) 200 mg Oral every 4 hours as needed for Pain / Fever Additional Information: Source: [facility] P[facility]ART Document Id: [id number] ACT CENTER AGENT Miscellaneous - Conversion, Historical Provider Ser - 04/17/2011 3:56 PM CONTACT CENTER AGENT Pediatric Embosser Apprentice Intake/History Pediatric Embosser Apprentice Intake/History Entered On: 04/17/2011 15:59 CONTACT CENTER AGENT Performed On: 04/17/2011 15:56 CONTACT CENTER AGENT by VIVIAN PEDERSEN LPN Intake Peripheral Pulse Rate : 84/min Respiratory Rate : 20/min Systolic Blood Pressure : 106mmHg Diastolic Blood Pressure : 52mmHg NIBP Mean : 70mmHg BP Location : Right upper extremity Heart Rhythm : Regular VIVIAN PEDERSEN LPN - 04/17/2011 15:59 CONTACT CENTER AGENT Chief Complaint : Sports physical Ambulatory Intake Additional Information : Arm span:145 cm Temperature Oral : 36.7C(Converted to: 98.1DegF) Height : 149.2cm(Converted to: 4ft 11inch(es), 58.74inch(es)) Actual Weight : 44.2kg(Converted to: 97lb 7oz) Weight Source : Standing scale Dosing Weight Clinic : 44.20kg Clinic BSA : 1.35 Body Mass Index : 19.86kg/m2 VIVIAN PEDERSEN [facility] - 04/17/2011 15:56 CONTACT CENTER AGENT Subjective Pain Symptoms : No VIVIAN PEDERSEN [employer] - 04/17/2011 15:56 CONTACT CENTER AGENT Dependent Habits Tobacco Use/Currently Using : No Tobacco Use/Last 12 months : No Smoking Status : Never smoker Alcohol Use : No VIVIAN PEDERSEN [facility] - 04/17/2011 15:56 CONTACT CENTER AGENT Caffeine Use Grid Caffeine Use : Current Type : Chocolate, Soft drinks Frequency : Monthly Amount : 2 times per month Last Use : today VIVIAN PEDERSEN [facility] 04/17/2011 15:56 CONTACT CENTER AGENT Recreational Drug Use Grid Drug Use : None VIVIAN PEDERSEN [facility] 04/17/2011 15:56 CONTACT CENTER AGENT Allergy Allergies (Active) penicillin Estimated Onset Date: Unspecified ; Created By: CHARO TENORIO; Reaction Status: Active ; Category: Drug ; Substance: penicillin ; Type: Allergy ; Severity: Mild ; Updated By: CHARO TENORIO; Source: Family ; Reviewed Date: 04/17/2011 15:52 CONTACT CENTER AGENT Source: [facility] Document Id: [id number] CONTACT CENTER AGENT!9 documented in this encounter Plan of Treatment Not on filedocumented as of this encounter Visit Diagnoses Not on filedocumented in this encounter
--- OUTSIDE RECORDS SUMMARY | 2022-01-23 12:50 | XMS_ITS | Encounter Summary ---
:2000 Author Organization [facility] Address [address] [place] [address] Care Team Providers Name Role Phone Unavailable Primary Care Provider Unavailable Encounter Details Date Type Department Care Team Description 01/26/2013 Hospital Encounter HX [facility] Elmo Kitchen, BEL, C.N.P., D. N.P. [address] [place], [place] [address] (Wo rk) Social History Tobacco Use Types [...] 08/02/2020 relatives? How often do you attend yazdanism or bahai 1 to 4 times per year 08/02/2020 services? Do you belong to any clubs or organizations such No 08/02/2020 as yazdanism groups, unions, fraternal or athletic groups, or [...] - Inhaled Oxygen Concentration - - Weight 46.2 kg (101 lb 13.6 oz) 01/26/2013 10:42 AM CDT Height 157.7 cm (5' 2.09) 01/26/2013 10:42 AM CDT Body Mass Index 18.58 01/26/2013 10:42 AM CDT Body Mass Index Percentile 38.23 % 01/26/2013 10:42 AM CDT Growth Chart: [facility] (Girls, 2-20 Years) documented in this encounter H&P Notes Lisa Kitchen APRN, C.N.P. - 01/26/2013 10:25 AM CDT [id number] CHIEF COMPLAINT/REASON FOR VISIT Well-child exam and sports physical. HISTORY OF PRESENT ILLNESS The patient is a 12-year-old female who presents for her 12-year-old well-child exam. Patient was last seen by me for her 10-year-old well-child exam. Patient lives at home with her mom, dad, one brother, one sister and one cousin. She does speak Mongolian in their home. Patient does wear glasses but isnot wearing them today. She has no vision or hearing concerns. Her family history has not changed. Patient does eat 3 meals a day with snacks. She drinks one glass of whole milk a day. She is currentlygoing to bed between 11 p.m. and 12 a.m. and getting up at 7 a.m. but when the school year starts she will be going to bed earlier. Patient brushes her teeth twice a day and does floss weekly. Patient l ikes to walk with her friends. However cheerleading is starting and she is now running. She does have about 4 hours of screen time a day and she was reminded to limit this to less than 1 hour. She denies tobacco, alcohol or drug use. No environmental risks were identified. Patient meets developmental milestones. CURRENT MEDICATIONS See depart summary. ALLERGIES See EMR. SYSTEMS REVIEW Please see [facility] 11 to 14-year-old clinic visit sheet scanned into EMR for complete details. PAST MEDICAL/SURGICAL HISTORY Unchanged see EMR. SOCIAL HISTORY Patient lives at home with her mom, dad, brother, one sister and cousin. Denies tobacco, alcohol anddrug use. Patient is not sexually active. FAMILY HISTORY Unchanged see EMR. VITAL SIGNS See EMR. PHYSICAL EXAMINATION Please see scanned-in [facility] 11 to 14-year-old clinic visit sheet and [id number] sports qualifying physical examination clearance form as well. IMPRESSION/REPORT/PLAN 1. Satisfactory well-child exam. Anticipatory guidance given as marked on sheet. Immunizations are current and none are needed today. Patient was referred to the dentist. She should follow up in 1 to 2years for recheck or sooner if needed. 2. Sports physical. Patient is cleared to participate in sports without restrictions. Patient was reminded to avoid alcohol, drugs and tobacco. She was also encouraged to refrain from sexual activity. However if she chooses to become sexually active, she should be started on control and use condoms to prevent sexually transmitted infections. Patient will follow up as needed. Lisa Crandall CNP/amber Electronically Signed By: LISA CRANDALL CNP On: 02/13/2013 08:43 AM Source: [facility] Document Id: [id number] documented in this encounter Procedure Notes Conversion, Historical Provider Ser - 01/26/2013 11:23 AM CDT Hearing Point of Care Testing - Audiometer Document Has Been Updated Hearing Point of Care Testing - Audiometer Entered On: 01/26/2013 11:31 CDT Performed On: 01/26/2013 11:23 CDT by KIRSTEN HUYNH Hearing Point of Care Testing - Audiometer Left Ear Hearing POC Test Grid Left Ear 20 db Left Ear 30 db Left Ear 40 db 500 Hz : Response Response Response 1000 Hz : Response Response Response 2000 Hz : Response Response Response 4000 Hz : Response Response Response KIRSTEN HUYNH - 01/26/2013 11:23 CDT KIRSTEN HUYNH - 01/26/2013 11:23 CDT KIRSTEN HUYNH - 01/26/2013 11:23 CDT Right Ear Hearing POC Test Grid Right Ear 20 db Right Ear 30 db Right Ear 40 db 500 Hz : No response KIRSTEN HUYNH - 01/26/2013 11:40 CDT Response Response 1000 Hz : Response Response Response 2000 Hz : Response Response Response 4000 Hz : Response Response Response KIRSTEN HUYNH - 01/26/2013 11:23 CDT KIRSTEN HUYNH - 01/26/2013 11:23 CDT KIRSTEN HUYNH 01/26/2013 11:23 CDT Source: [facility] Document Id: [id number] CDT!5 Conversion, Historical Provider Ser - 01/26/2013 11:23 AM CDT Vision Testing Document Has Been Updated Vision Testing Entered On: 01/26/2013 11:34 CDT Performed On: 01/26/2013 11:23 CDT by DAKOTAAmritaKIRSTEN ARELLANO Becky Vision Testing Eyes, Both w/o Correction : 20/30 KIRSTEN HUYNH - 01/26/2013 11:39 CDT Corrective Lenses : Glasses KIRSTEN HUYNH 01/26/2013 11:23 CDT Eye, Right w/o Correction : 20/40 Eye, Left w/o Correction : 20/30 KIRSTEN HUYNH - 01/26/2013 11:39 CDT Source: [facility] Document Id: [id number] CDT!5 documented in this encounter Miscellaneous Notes Miscellaneous - Lisa Kitchen APRN, CBettieN.PBettie - 01/26/2013 5:17 PM CDT Ambulatory Patient Summary [address] [address] Visit Information Name: CITLALY HOLLAND [facility] Number: [id number] Current Date: 01/26/2013 17:17:31 Physicians Attending Provider: LISA CRANDALL CNP Primary Care Provider: LISA CRANDALL CNP Your Medications Here is a list of your medications. It is important to take your medications as directed. Use a pillbox or chart to help remind you to take your medications. Please let your doctor or nurse know if you have problems taking your medications. Medication/Strength Dose Route Frequency Indications/Special Instructions/Comments/Notes ibuprofen (Advil 200 mg oral tablet) 200 mg Oral every 4 hours as needed for Pain / Fever Attention: If you have any medications at home that are not on this list, DO NOT take them until youcontact your provider for clarification. Your Allergies & Intolerances Substance Reaction Symptoms Category Comments penicillin Drug Your Problem List Problem Status Onset Comments No Chronic Problems Active Your Upcoming Appointments Date Time Location Reason Provider No Appointments found Your Goals/Additional instructions: [facility] Document Id: [id number] Miscellaneous - Lisa Kitchen APRN, C.N.P. - 01/26/2013 5:17 PM CDT Ambulatory Depart Summary [address] [address] Visit Information Name: CITLALY HOLLAND [facility] Number: [id number] Visit Date: 01/26/2013 17:17:30 Attending Provider: LISA CRANDALL CNP Primary Care Provider: LISA CRANDALL CNP CITLALY HOLLAND has been given the following list of medications: Your Medications It is important to take your medications as directed. Use a pill box or chart to help remind you to take your medications. Please let your doctor or nurse know if you have problems taking your medications. Medication/Strength Dose Route Frequency Indications/Special Instructions/Comments/Notes ibuprofen (Advil 200 mg oral tablet) 200 mg Oral every 4 hours as needed for Pain / Fever Attention: If you have any medications at home that are not on this list, DO NOT take them until youcontact your provider for clarification. Additional Information: Source: [facility] Document Id: [id number] Miscellaneous - Conversion, Historical Provider Ser - 01/26/2013 10:42 AM CDT Pediatric Head Orthopedic Team Physician Intake/History Pediatric Head Orthopedic Team Physician Intake/History Entered On: 01/26/2013 10:43 CDT Performed On: 01/26/2013 10:42 CDT by KIRSTEN HUYNH Intake Chief Complaint : sports physical Temperature Core : 36.8 DegC(Converted to: 98.2 DegF) Peripheral Pulse Rate : 72 /min Respiratory Rate : 16 /min Systolic Blood Pressure : 88 mmHg (<LLOW) Diastolic Blood Pressure : 52 mmHg NIBP Mean : 64 mmHg BP Location : Right upper extremity Blood Pressure Cuff Size : Regular Height : 157.7 cm(Converted to: 5 ft 2 inch(es), 62.09 inch(es)) Actual Weight : 46.2 kg(Converted to: 101 lb 14 oz) Weight Source : Standing scale Dosing Weight Clinic : 46.2 kg Clinic BSA : 1.42 Body Mass Index : 18.58 kg/m2 KIRSTEN HUYNH - 01/26/2013 10:42 CDT General Info Mode of Arrival : Ambulatory Accompanied By : Mother, Sibling Information Given By : Patient Languages : Luxembourgish KIRSTEN HUYNH - 01/26/2013 10:42 CDT Subjective Pain Symptoms : No KIRSTEN HUYNH - 01/26/2013 10:42 CDT Dependent Habits Tobacco Use/Currently Using : No Tobacco Use/Last 12 months : No Tobacco Use/Advised to Quit : No Exposure to Tobacco Smoke : Care provider denies smoking in home Smoking Status : Never smoker KIRSTEN HUYNH 01/26/2013 10:42 CDT Caffeine Use Grid Caffeine Use : Current Type : Chocolate, Soft drinks Frequency : Monthly Amount : 2 times per month Last Use : today KIRSTEN HUYNH - 01/26/2013 10:42 CDT Recreational Drug Use Grid Drug Use : None KIRSTEN HUYNH 01/26/2013 10:42 CDT Source: [facility] Document Id: [id number] CDT!40 documented in this encounter Plan of Treatment Not on filedocumented as of this encounter Visit Diagnoses Not on filedocumented in this encounter
--- OUTSIDE RECORDS SUMMARY | 2022-01-23 12:50 | XMS_ITS | Encounter Summary ---
:2000 Author Organization [facility] Address [address] [place] [address] Care Team Providers Name Role Phone Unavailable Primary Care Provider Unavailable Encounter Details Date Type Department Care Team Description 10/09/2016 Hospital Encounter HX FBCV FAMILYPRA Amrita Payan P.A.-C. [address] [place] [phone] (Wo rk) Social History Tobacco Use Types Packs/Day Years Used Date Smoking Tobacco: Never Alcohol Habits Answer Date Recorded [...] 08/02/2020 relatives? How often do you attend jewish or pentecostalism 1 to 4 times per year 08/02/2020 services? Do you belong to any clubs or organizations such No 08/02/2020 as jewish groups, unions, fraternal or athletic groups, or [...] - Inhaled Oxygen Concentration - - Weight 70 kg (154 lb 5.2 oz) 10/09/2016 3:18 PM CDT Height - - Body Mass Index - - documented in this encounter Progress Notes Mikael Payan P.A.-C. - 10/09/2016 3:04 PM CDT [id number] CHIEF COMPLAINT/REASON FOR VISIT Sore throat. HISTORY OF PRESENT ILLNESS Citlaly is a pleasant 15-year-old girl who has had a sore throat for the last 2 days. In general, shehas otherwise been feeling well. VITAL SIGNS Noted in the EMR. PHYSICAL EXAMINATION GENERAL: She appears in no acute distress. ENT: TMs no erythema. Throat was red in appearance, mostly in the posterior pharynx. NECK: No lymphadenopathy. No thyroid masses. HEART: Regular rate and rhythm. No murmurs. LUNGS: Clear to auscultation. IMPRESSION/REPORT/PLAN Pharyngitis. Her strep screen was negative. I think likely this is a viral etiology. I reassured herthis should improve on its own. I am going to have her gargle with salt water and push fluids and ifher symptoms worsen or do not completely resolve within the next 7 to 10 days, let us know otherwise, follow up as needed. Mikael Payan P.A.-C./francesca Electronically Signed By: MIKAEL PAYAN PA-C On: 10/12/2016 09:00 AM Source: [facility] MHSDOLBEYNONRADSYS Document Id: [id number] documented in this encounter Miscellaneous Notes Miscellaneous - Mikael Payan P.A.-C. - 10/09/2016 4:34 PM CDT Ambulatory Discharge Medication List [address] [id number] Visit Information Name: CITLALY HOLLAND [facility] Number: [id number] Current Date: 10/09/2016 16:34:51 Attending Provider: MIKAEL PAYAN PA-C Primary Care Provider: ORLIN PAYNE CNP CITLALY HOLLAND has been given the following list of medications: Your Medications It is important to take your medications as directed. Use a pill box or chart to help remind you to take your medications. Please let your doctor or nurse know if you have problems taking your medications. Medication/Strength How to Take Indications/Special Instructions/Comments/Notes for Patient Medication Changes/Routing *ibuprofen (Advil 200 mg oral tablet) 1 Tablet(s), Oral, every 4 hours as needed for Pain / Fever * You have let us know that you are not taking this medication as listed. Please talk with your primary care provider or the health care provider who prescribed the medication as soon as possible. Stop Taking the Following Medications: Medication list as of 10-09-16 16:34 Attention: If you have any medications at home that are not on this list, DO NOT take them until youcontact your provider for clarification. Give a copy of your medication list to your primary care provider. Update your medication list any time medications or doses are changed and carry your medication list at all times in case of emergency. Electronically Signed By: MIKAEL PAYAN PA-C Signed On:09-OCT-2016 16:34:49 Additional Information: Source: [facility] POWERCHART Document Id: [id number] Miscellaneous - Mikael Payan P.A.-C. - 10/09/2016 4:34 PM CDT Ambulatory Patient Summary [address] [id number] Visit Information Name: CITLALY HOLLAND [facility] Number: [id number] Current Date: 10/09/2016 16:34:51 Physicians Attending Provider: MIKAEL PAYAN PA-C Primary Care Provider: ORLIN PAYNE CNP CITLALY HOLLAND has been given the following list of follow-up instructions, medication list, and patient education materials: Follow-up Instructions Your Medications Here is a list of your medications. It is important to take your medications as directed. Use a pillbox or chart to help remind you to take your medications. Please let your doctor or nurse know if you have problems taking your medications. Medication/Strength How to Take Indications/Special Instructions/Comments/Notes for Patient Medication Changes/Routing *ibuprofen (Advil 200 mg oral tablet) 1 Tablet(s), Oral, every 4 hours as needed for Pain / Fever * You have let us know that you are not taking this medication as listed. Please talk with your primary care provider or the health care provider who prescribed the medication as soon as possible. Stop Taking the Following Medications: Medication list as of 10-09-16 16:34 Attention: If you have any medications at home that are not on this list, DO NOT take them until youcontact your provider for clarification. Give a copy of your medication list to your primary care provider. Update your medication list any time medications or doses are changed and carry your medication list at all times in case of emergency. Electronically Signed By: MIKAEL PAYAN PA-C Signed On:09-OCT-2016 16:34:49 Your Allergies & Intolerances Substance Reaction Symptoms Category Comments penicillin Drug Your Problem List Problem Status Onset Comments No Chronic Problems Active Your Upcoming Appointments Date Time Location Provider No Appointments found Attention: Contact your local Clinic if further appointment detail needed. Consider Using Patient Online Services Patient Online Services is a secure online and Mobile application that lets you: ?? View lab and test results ?? View portions of your medical record including clinical notes, immunizations and discharge summaries ?? Request an appointment or medication refill ?? Review your appointment schedule ?? Send secure messages to your care team Its easy to create an account if you dont have one. Go to [email or web address] and click on Create Your Account. Then, follow the directions to complete the online form. Youll be asked for your [facility] number which you can find at the top of this document. Your Goals/Additional instructions: Source: [facility] POWERCHART Document Id: [id number] Miscellaneous - Roxana Hernandez L.PBettieNBettie - 10/09/2016 3:18 PM CDT Pediatric Retail Sales Clerk Intake/History Pediatric Retail Sales Clerk Intake/History Entered On: 10/09/2016 15:20 CDT Performed On: 10/09/2016 15:18 CDT by ROXANA HERNANDEZ LPN Intake Chief Complaint : sore throat and congestion for past 2 days Temperature Core : 36.4 DegC(Converted to: 97.5 DegF) (LOW) Peripheral Pulse Rate : 120 /min (HI) Respiratory Rate : 16 /min Systolic Blood Pressure : 118 mmHg Diastolic Blood Pressure : 70 mmHg NIBP Mean : 86 mmHg BP Location : Right upper extremity Blood Pressure Cuff Size : Regular Actual Weight : 70 kg(Converted to: 154 lb 5 oz) Weight Source : Standing scale Dosing Weight Clinic : 70 kg ROXANA HERNANDEZ LPN - 10/09/2016 15:18 CDT General Info Information Given By : Patient Languages : Frisian Is Patient Female and 13-50 no hysterectomy : Yes Status : Patient denies Are you ? : No ROXANA HERNANDEZ LPN - 10/09/2016 15:18 CDT Subjective Pain Symptoms : Yes ROXANA HERNANDEZ LPN - 10/09/2016 15:18 CDT Pain Scale Pain Scale Verbal 0-10 : Open ROXANA HERNANDEZ LPN - 10/09/2016 15:18 CDT Pain Pain Assessment Grid Pain 1 Location : Throat ROXANA HERNANDEZ LPN - 10/09/2016 15:18 CDT Dependent Habits Exposure to Tobacco Smoke : Care provider denies smoking in home Smoking Status : Never smoker Tobacco 2A : No Tobacco Use/Currently Using : No Tobacco Use/Last 30 Days : No Tobacco Use/Last 12 months : No ROXANA HERNANDEZ LPN - 10/09/2016 15:18 CDT Caffeine Use Grid Caffeine Use : Current Type : Chocolate, Soft drinks Frequency : Weekly Amount : 2 times per month Last Use : 04/30/15 ROXANA HERNANDEZ LPN - 10/09/2016 15:18 CDT Recreational Drug Use Grid Drug Use : None ROXANA HERNANDEZ LPN - 10/09/2016 15:18 CDT [facility] Document Id: [id number]!45 documented in this encounter Plan of Treatment Not on filedocumented as of this encounter Procedures Procedure Name Priority Date/Time Associated Diagnosis Comme nts RAPID STREP A Routine 10/09/2016 3:30 PM Results for this SCREEN CDT procedure are i n the results section. RAPID STREP A Routine 10/09/2016 3:30 PM Results for this SCREEN CDT procedure are i n the results section. documented in this encounter Results Rapid Strep A Screen (10/09/2016 3:30 PM CDT) [facility] Prylos Method Time Signature HXRapid Strep POWERCHART Confirmation HXPre Negative for POWERCHART Group A Strep by culture. HXFinal Negative for POWERCHART Group A Strep by culture. Specimen Anatomical Collection Method Collection Time Receive d Time (Source) Location / / Volume Laterality Throat 10/09/2016 3:30 PM 7 3:30 CDT PM CDT Mikael MooreC. LAB MICROBIOLOGY - GENERAL O RDERABLES Performing Organization Address City/State/ZIP Code Phon e Number POWERCHART Rapid Strep A Screen (10/09/2016 3:30 PM CDT) [facility]los Method Time Signature HXStrep A POWERCHART Screen Rapid HXFinal Negative for POWERCHART Strep Group A by rapid screen. HXFinal Culture POWERCHART confirmation to follow. Specimen (Source) Anatomical Collection Method Collection Time Re ceived Time Location / / Volume Laterality Throat 10/09/2016 3:30 PM CDT Mikael Koo-C. LAB MICROBIOLOGY - GENERAL O RDERABLES Performing Organization Address City/State/ZIP Code Phon e Number POWERCHART documented in this encounter Visit Diagnoses Not on filedocumented in this encounter
--- OUTSIDE RECORDS SUMMARY | 2022-01-23 12:50 | XMS_ITS | Encounter Summary ---
:1998 Author Organization [facility] Address [address] [place] [address] Care Team Providers Name Role Phone Unavailable Primary Care Provider Unavailable Encounter Details Date Type Department Care Team Description 1998 Hospital Encounter HX RST [place] 2-0 Social History Tobacco Use Types Packs/Day Years [...] How often do you attend restoration or anglican 1 to 4 times per year 08/02/2020 [...] Name Priority Date/Time Associated Diagnosis Comme nts DX CHEST AND Routine 1998 2:52 PM Re sults for this ABDOMEN PORTABLE 1 CDT procedure are in VIEW the results section. DX CHEST AND Routine 1998 11:39 AM R esults for this ABDOMEN PORTABLE 1 CDT procedure are in VIEW the results section. DX INFANT CHEST AND Routine 1998 9:31 AM Re sults for this ABDOMEN PORTABLE 1 CDT procedure are in VIEW the results section. HX SUBSEQ ORDER FOR Routine 1998 9:09 AM Re sults for this NB? CDT procedur e are in ? the resu lts ?? section. ABORH, RBC Routine 1998 9:08 AM Results f or this CDT procedure are i n the results section. PREPARE RED BLOOD Routine 1998 9:08 AM Resu lts for this CELLS CDT procedure are i n the results section. DX INFANT CHEST AND Routine 1998 8:53 AM Re sults for this ABDOMEN PORTABLE 1 CDT procedure are in VIEW the results section. documented in this encounter Results DX Infant Chest and Abdomen Portable 1 View (1998 2:52 PM CDT) Anatomical Region Laterality Modality Chest, Abdomen N/A Radiographic Imaging Specimen (Source) Anatomical Collection Method Collection Time Re ceived Time Location / / Volume Laterality 1998 2:52 PM CDT Narrative 1998 3:04 PM CDT 1998 14:52:00 ??Exam: Peds - Chest Abdomen Indications: et uvc placement ORIGINAL REPORT - 1998 15:04:00 ETt with tip just at david. Moderate gr anular infiltrates throughout the lungs. These are most prominent in the right uppper and left lower lobes and in the perihilar region consistent with HMD. Promin ent heart size. UVC with overlyinlg RA. UAC with tip in L3. Paucity of gas within the abdomen. Electronically signed by: ?? Yoli Hickman MD. ??[id number] 1998 15:04 Procedure Note Cecily Hickman M.D. - 09/06/2017Form atting of this note might be different from the original. 1998 14:52:00 Exam: Peds - Chest Abdomen Indications: et uvc placement ORIGINAL REPORT - 1998 15:04:00 ETt with tip just at david. Moderate gr anular infiltrates throughout the lungs. These are most prominent in the right uppper and left lower lobes and in the perihilar region consistent with HMD. Prominent heart size. UVC with overlyinlg RA. UAC with tip in L3. Paucity of gas within the abdomen. Electronically signed by: Yoli Hickman MD. [id number] 1998 1 5:04 Robert Nick M.D. IMG DIAGNOSTIC IMAGING PROCE DURES DX Chest and Abdomen Portable 1 View (1998 11:39 AM CDT) Anatomical Region Laterality Modality Chest, Abdomen N/A Radiographic Imaging Specimen (Source) Anatomical Collection Method Collection Time Re ceived Time Location / / Volume Laterality 1998 11:39 AM CDT Narrative 1998 12:29 PM CDT 1998 11:39:00 ??Exam: Peds - Chest Abdomen Indications: ET TUBE ORIGINAL REPORT - 1998 12:29:00 ETT with tip at the david. Moderate aissatou ateral granular infiltrates most prominent inthe perihlar region and at the left base. The appearance is consistent with HMD. UVC with tip over RA. UAC with tip over L3. Paucity of gas within the abdomen. Electronically signed by: ?? Yoli Hickman MD. ??[id number] 1998 12:29 Procedure Note Cecily Hickman M.D. - 09/06/2017Form atting of this note might be different from the original. 1998 11:39:00 Exam: Peds - Chest Abdomen Indications: ET TUBE ORIGINAL REPORT - 1998 12:29:00 ETT with tip at the david. Moderate aissatou ateral granular infiltrates most prominent inthe perihlar region and at the left base. The appearance is consistent with HMD. UVC with tip over RA. UAC with tip over L3. Paucity of gas within the abdomen. Electronically signed by: Yoli Hickman MD. [id number] 1998 1 2:29 Robert Nick M.D. IMG DIAGNOSTIC IMAGING PROCE DURES DX Chest and Abdomen Portable 1 View (1998 9:31 AM CDT) Anatomical Region Laterality Modality Chest, Abdomen N/A Radiographic Imaging Specimen (Source) Anatomical Collection Method Collection Time Re ceived Time Location / / Volume Laterality 1998 9:31 AM CDT Narrative 1998 9:54 AM CDT 1998 09:31:00 ??Exam: Peds - Chest Abdomen Indications: TUBE PLACEMENT ORIGINAL REPORT - 1998 09:54:00 Since our film a half hour ago, the umbi lical artery catheter has been pulled back and its tip is now at the T12-L1 level. ??UVC tip remains in the right heart but has been pulled back about a centimete r. ??ETT and OG tubes in place. Granular changes of RDS with slightly better aeration than on the previous film. ??Heart remains upper limits of normal in size. Bowel gas pattern normal. Electronically signed by: ?? Chris Vega ??[id number] 1998 09:54 Procedure Note Paolo Vega M.D. - 09/06/2017Format ting of this note might be different from the original. 1998 09:31:00 Exam: Peds - Chest Abdomen Indications: TUBE PLACEMENT ORIGINAL REPORT - 1998 09:54:00 Since our film a half hour ago, the umbi lical artery catheter has been pulled back and its tip is now at the T12-L1 level. UVC tip remains in the right heart but has been pulled back about a centimeter. ETT and OG tubes in place. Granular changes of RDS with slightly better aeration than on the previous film. Heart remains upper limits of normal in size. Bowel gas pattern normal. Electronically signed by: Chris Vega [id number] 1998 09:54 Clinton Luna M.D. IMLucía DIAGNOSTIC IMAGING PROCE DURES HX SUBSEQ ORDER FOR NB? (1998 9:09 AM CDT) Specimen Anatomical Collection Method Collection Time Receive d Time (Source) Location / / Volume Laterality 1998 9:09 AM 9 5:11 CDT PM CDT Narrative [facility] - 1998 9:09 AM CDT 1998 ?[id number] ?Ro ?09:09 ?? Subsq Order for NB: ?Blood Component ?R BC, Irradiated Leukoreduced ?CPDA-1, Divided ?Transfused ? 28 Jan 1999 ?Unit Number Id ? [id number] Procedure Note 09/15/2017 1998 [id number] Ro 09:09 Subsq Order for NB: Blood Component RBC, Irradiated Leukore duced CPDA-1, Divided Transfused 28 Jan 1999 Unit Number Id [id number] Historical Provider LAB HISTORICAL ORDERS Performing Organization Address City/State/ZIP Code Phon e Number [facility] - [address] [id number] [facility] Prepare Red Blood Cells (1998 9:08 AM CDT) Specimen Anatomical Collection Method Collection Time Receive d Time (Source) Location / / Volume Laterality 1998 9:08 AM 9 2:17 CDT PM CDT Narrative [facility] - 1998 9:08 AM CDT 1998 ?[id number] ?Ro ?09:08 ?? RBC TRF Order: ?ABO/RH ? O POS ?Antibody Screen ?N eg Procedure Note 09/15/2017 1998 [id number] Ro 09:08 RBC TRF Order: ABO/RH O POS Antibody Screen Neg Historical Provider BLOOD BANK PRODUCT ORDERABLE S Performing Organization Address [facility] Phon e Number [facility] - [address] ABORh, RBC (1998 9:08 AM CDT) Specimen Anatomical Collection Method Collection Time Receive d Time (Source) Location / / Volume Laterality 1998 9:08 AM 9 9:54 CDT AM CDT Narrative [facility] - 1998 9:08 AM CDT 1998 ?[id number] ?Ro ?09:08 ?? ABO and Rh Order (2): ?ABO/RH ? O POS Procedure Note 09/15/2017 1998 [id number] Ro 09:08 ABO and Rh Order (2): ABO/RH O POS Historical Provider LAB BLOOD BANK TEST ORDERABL ES Performing Organization Address [facility] Code Phon e Number [facility] - [address] DX Chest and Abdomen Portable 1 View (1998 8:53 AM CDT) Anatomical Region Laterality Modality Chest, Abdomen N/A Radiographic Imaging Specimen (Source) Anatomical Collection Method Collection Time Re ceived Time Location / / Volume Laterality 1998 8:53 AM CDT Narrative 1998 9:53 AM CDT 1998 08:53:00 ??Exam: Peds - Chest Abdomen Indications: TUBE PLACEMENT,EVC,UAC, AND ET TUBE ORIGINAL REPORT - 1998 09:53:00 ETT in good position. UVC tip is in the right heart. UAC tip at T10-11. Enteric tube tip in the stomach. Granular changes consistent with RDS. Lungs otherwise expanded. ??Heart upper limits of normal. Bowel gas pattern within normal limits. Electronically signed by: ?? Chris Vega ??[id number] 1998 09:53 Procedure Note Paolo Vega M.D. - 09/06/2017Format ting of this note might be different from the original. 1998 08:53:00 Exam: Peds - Chest Abdomen Indications: TUBE PLACEMENT,EVC,UAC, AND ET TUBE ORIGINAL REPORT - 1998 09:53:00 ETT in good position. UVC tip is in the right heart. UAC tip at T10-11. Enteric tube tip in the stomach. Granular changes consistent with RDS. Lungs otherwise expanded. Heart upper limits of normal. Bowel gas pattern within normal limits. Electronically signed by: Chris Vega [id number] 1998 09:53 Clinton GONZALEZ DIAGNOSTIC IMAGING PROCE BARRETT documented in this encounter Visit Diagnoses Not on filedocumented in this encounter
--- OUTSIDE RECORDS SUMMARY | 2022-01-23 12:50 | XMS_ITS | Encounter Summary ---
:1998 Author Organization [facility] Address [address] [place] [address] Care Team Providers Name Role Phone Chevy, Miranda Guadalupe APRN C.N.PBettie, M.S.N. Primary Care Pr ovider Reason for Referral Outpatient (Routine) - Closed Specialty Diagnoses / Procedures Referred By Contact Refer red To Contact Diagnoses Bicuspid Aortic Valve (HCC) Fatigue par review Phyllis Ramírez M.D. [facility] [place] [facility] Procedures Echo Transthoracic (TTE) ID ECHO TTE 2D W DPLR COMPLETE CVD ECHO [address] [place] [address] Referral ID Status Reason Start Date Expiration Date Visits Requ ested Visits Authorized [id number] Closed 09/03/2017 03/02/2018 1 1 Reason for Visit Outpatient (Routine) - Closed Specialty Diagnoses / Procedures Referred By Contact Refer red To Contact Diagnoses Bicuspid Aortic Valve (HCC) Fatigue par review Phyllis Ramírez M.D. [facility] [place] [facility] Procedures Echo Transthoracic (TTE) ID ECHO TTE 2D W DPLR COMPLETE CVD ECHO [address] [place] [address] Referral ID Status Reason Start Date Expiration Date Visits Requ ested Visits Authorized [id number] Closed 09/03/2017 03/02/2018 1 1 Encounter Details Date Type Department Care Team Description 11/02/2017 Hospital Encounter Department of Phyllis Ramírez Aortic Valve (HCC); Cardiovascular Diseases Silvio Winter Fatigue in [place] [address] [place], [place] [phone] Social History Tobacco Use Types Packs/Day Years [...] 08/02/2020 relatives? How often do you attend druze or uatsdin 1 to 4 times per year 08/02/2020 services? Do you belong to any clubs or organizations such No 08/02/2020 as druze groups, unions, fraternal or athletic groups, or [...] Sig Dispensed Refills Start Date End Date ibuprofen (ADVIL,MOTRIN) Take 800 mg by 0 200 mg tablet mouth. acetaminophen (TYLENOL) 500 Take 1,000 mg by 0 08/12/2020 mg capsule mouth. documented as of this encounter Plan of Treatment Not on filedocumented as of this encounter Procedures Procedure Name Priority Date/Time Associated Diagnosis Comme nts (TTE) 2D ECHO Routine 11/02/2017 8:41 AM Bicuspid Aortic Resul ts for this DOPPLER COLOR CDT Valve (HCC) procedure are in Fatigue the results section. documented in this encounter Results (TTE) 2D ECHO DOPPLER COLOR (11/02/2017 8:41 AM CDT) [facility] Method Time Signature Ejection Fraction 59 MC CV EIMS Sinus of Valsalva 29 MC CV EIMS Aortic arch 20 MC CV EIMS Proximal Ascending 21 MC CV EIMS Aorta Mid-Ascending Aorta 22 MC CV EIMS LV Mass Index 77 MC CV EIMS LV End-Diastolic 46 MC CV EIMS Diameter LV End-Systolic 31 MC CV EIMS Diameter MV E Velocity 0.9 MC CV EIMS MV A Velocity 0.4 MC CV EIMS MV E/A 2.25 MC CV EIMS MV e' Velocity 0.13 MC CV EIMS Medial MV e' Velocity 0.15 MC CV EIMS Lateral MV E/e' Medial 6.9 MC CV EIMS MV E/e' Lateral 6.0 MC CV EIMS Left ventricular 42 MC CV EIMS stroke volume index Cardiac Output 6.11 MC CV EIMS Cardiac Index 3.45 MC CV EIMS LV Interventricular 9 MC CV EIMS Septal Wall Thickness LV Posterior Wall 9 MC CV EIMS Thickness LV Relative Wall 39 MC CV EIMS Thickness RV 4-Chamber Basal 32 MC CV EIMS Diameter RV 4-Chamber Mid 36 MC CV EIMS Diameter RV 4-Chamber Length 78 MC CV EIMS Tricuspid Annular S? 0.14 MC CV EIMS TR Vmax 2.40 MC CV EIMS RA Pressure 5 MC CV EIMS RV Systolic Pressure 28 MC CV EIM S AV mean gradient 4 MC CV EIMS Aortic valve area 2.81 MC CV EIMS Aortic Valve Area 1.59 MC CV EIMS Index Aortic Valve 0.81 MC CV EIMS Dimensionless Index LA Volume Index 16 MC CV EIMS Anatomical Region Laterality Modality Echocardiography Specimen (Source) Anatomical Collection Method Collection Time Re ceived Time Location / / Volume Laterality 11/02/2017 7:49 AM CDT Narrative 11/02/2017 3:37 PM CDT This result has an attachment that is no t available. See PDF For Result Procedure Note Sean Martinez M.D. - 11/02/2017Form atting of this note might be different from the original. See PDF For Result Phyllis Ramírez M.D. CV ECHO PROCEDURES documented in this encounter Visit Diagnoses Diagnosis Bicuspid Aortic Valve (HCC) Fatigue documented in this encounter Additional Health Concerns Assessment Noted Time PHQ-9 Depression Total Score: 8 10/13/2017 12:58 PM CD T documented as of this encounter Care Teams Can Filling And Closing Machine Tender Relationship Specialty Start Date End Date Reece, Miranda Guadalupe APRN, C.N.P., PCP - General 02/04/18 M.S.N. [address] [place] [phone] documented as of this encounter
--- OUTSIDE RECORDS SUMMARY | 2022-01-23 12:50 | XMS_ITS | Encounter Summary ---
:2000 Author Organization [facility] Address [address] [place] [address] Care Team Providers Name Role Phone Chevy, Miarnda Guadalupe APRN C.N.P., M.S.N. Primary Care Pr ovider Encounter Details Date Type Department Care Team Description 10/13/2017 Hospital Encounter Department of Radiology Amrita Payan, Pain Back in [facility] PBettieAEnoch [address] [place] [address] [place], [place] [phone] (Wo rk) Social History Tobacco Use [...] 08/02/2020 relatives? How often do you attend scientology or sikhism 1 to 4 times per year 08/02/2020 services? Do you belong to any clubs or organizations such No 08/02/2020 as scientology groups, unions, fraternal or athletic groups, or [...] capsule mouth. documented as of this encounter Progress Notes Mirtha Vigil L.P.N. - 10/13/2017 4:18 PM CDT Notified Citlaly documented in this encounter Plan of Treatment Not on filedocumented as of this encounter Procedures Procedure Name Priority Date/Time Associated Comments Diagnosis DX LUMBAR SPINE RAD - Routine 10/13/2017 1:57 Pain Back Results for this 2-3 VIEWS (most inpatients PM CDT procedure a re in and all the results outpatients) section. documented in this encounter Results DX Lumbar Spine 2-3 Views (10/13/2017 1:57 PM CDT) Anatomical Region Laterality Modality Lumbar Spine, Musculoskeletal RST LOS N/A Co mputed Radiography Specimen (Source) Anatomical Collection Method Collection Time Re ceived Time Location / / Volume Laterality 10/13/2017 2:17 PM CDT Impressions 10/13/2017 2:21 PM CDT IMPRESSION: Suspected spondylolysis at L5 without spondylolisthesis. Narrative 10/13/2017 2:21 PM CDT EXAM: DX LUMBAR SPINE 2-3 VIEWS COMPARISON: None. FINDINGS: Minimal scoliosis convex to th e left centered at the L3 level. 5 lumbar vertebrae. Spondylolysis without evidence of spondylolisthesis at L5. The intervertebral disc spaces are normal. Procedure Note Willy Hopson M.D. - 10/13/2017Formatti ng of this note might be different from the original. EXAM: DX LUMBAR SPINE 2-3 VIEWS COMPARISON: None. FINDINGS: Minimal scoliosis convex to th e left centered at the L3 level. 5 lumbar vertebrae. Spondylolysis without evidence of spondylolisthesis at L5. The intervertebral disc spaces are normal. IMPRESSION: Suspected spondylolysis at L 5 without spondylolisthesis. [facility] DIAGNOSTIC IMAGING PROCE DURES documented in this encounter Visit Diagnoses Diagnosis Pain Back documented in this encounter Additional Health Concerns Assessment Noted Time PHQ-9 Depression Total Score: 8 10/13/2017 12:58 PM CD T documented as of this encounter Care Teams Transit Bus Driver Relationship Specialty Start Date End Date Reece, Miranda Guadalupe APRN, C.N.P., PCP - General 02/04/18 M.S.N. [address] [place] [address] documented as of this encounter
--- OUTSIDE RECORDS SUMMARY | 2022-01-23 12:50 | XMS_ITS | Encounter Summary ---
:2000 Author Organization [facility] Address [address] [place] [address] Care Team Providers Name Role Phone Unavailable Primary Care Provider Unavailable Encounter Details Date Type Department Care Team Description 04/30/2015 Hospital Encounter HX [facility] iMranda Reece APRN, C.N.P., M.S.N. [address] [place] [address] (Wo rk) Social History Tobacco Use Types [...] How often do you attend jewish or mandaeism 1 to 4 times per [...] - Inhaled Oxygen Concentration - - Weight 59.5 kg (131 lb 2.8 oz) 04/30/2015 3:28 PM CURRENCY MACHINE OPERATOR Height 158 cm (5' 2.21) 04/30/2015 3:28 PM CURRENCY MACHINE OPERATOR Body Mass Index 23.83 04/30/2015 3:28 PM CURRENCY MACHINE OPERATOR Body Mass Index Percentile 79.89 % 04/30/2015 3:28 PM CS T Growth Chart: [facility] (Girls, 2-20 Years) documented in this encounter H&P Notes hCevy, Miranda Guadalupe, BEL, TIFFANIE - 04/30/2015 3:19 PM CST [id number] CHIEF COMPLAINT/REASON FOR VISIT Annual physical. HISTORY OF PRESENT ILLNESS A very pleasant 14-year-old female presents for annual exam. Patient is very active. She participates in cheerleading and prefers to eat healthy foods such as fruits and vegetables. She does drink regular soda 2 to 3 drinks a day. Patient started menarche at the age of 10. She states that periods are regular without complaint. Nosevere cramping or clotting. Patient is in a monogamous relationship, has a boyfriend. They are not sexually active and she denies any other complaints at this time. No fevers, chills, headache, neck pain, chest pain, shortness of breath, abdominal pain, nausea, vomiting, or diarrhea. Mother is with patient. Mother voices no concerns at this time. MEDICATIONS Reviewed. See EMR medication list. ALLERGIES Reviewed. See EMR allergy list. SYSTEMS REVIEW Negative except for pertinent positives in HPI. PAST MEDICAL/SURGICAL HISTORY See EMR history and procedures. SOCIAL HISTORY Reviewed. No changes. FAMILY HISTORY Reviewed. No changes. VITAL SIGNS Refer to EMR vital signs flowsheet. PHYSICAL EXAMINATION GENERAL: Well-appearing adult, no acute distress. Grooming and hygiene appropriate. SKIN: Warm, dry and pink. No rashes, lesions or bruising. HEENT: Head normocephalic. Eyes: Conjunctivae clear. Sclerae white. Pupils equal, round, reactive tolight. EOMs intact. ENT: Ear canals are clear bilaterally. TMs dull. Nose: Nasal mucosa pink and moist. Posterior pharynx moist and pink. No lesions or exudate. Tongue is midline. Smile is even. Teeth i n okay repair. NECK: Supple. Trachea midline. No JVD. LYMPHATICS: No lymphadenopathy. THYROID: No thyromegaly. No tenderness with palpation. BREASTS: Deferred. PERIPHERAL VESSELS: Radial and dorsalis pedis +2, equal bilaterally. Capillary refill less than 3 seconds. HEART: Regular rate and rhythm. LUNGS: Clear to auscultation. No wheezes, rhonchi, or rales. BACK: No CVA tenderness. ABDOMEN: Round, soft. Bowel sounds present x4 quadrants. No bruits. No organomegaly. No masses felt or tenderness with palpation. GENITALIA: Deferred. SPINE: Straight and erect posture. JOINTS: Good range of motion, age-appropriate. EXTREMITIES: Warm and dry. No peripheral edema. Muscle strength equal bilaterally. Nontender. GAIT: Strong steady gait with coordinated movements. MENTAL: Alert and oriented to person, place and time. IMPRESSION/REPORT/PLAN Well-child exam. Normal well-child visit today. Chlamydia screening obtained. Influenza vaccine and Menactra vaccine given today and all immunizations are now up to date. Encouraged to continue eating healthy food choices such as fruits and vegetables, lean meats, chicken and fish. Encouraged patient to cut down on regular soda and to drink more water and to continue daily exercise. Did encourage patient if she did start a sexual relationship to use a condom every time and to tell mother and to discuss control if appropriate. Encouraged patient to follow up for any acute illnesses and in 1 year for annual exam. Patient and mother verbalized good understanding of all instructions. Ellen Jansen -C./francesca Electronically Signed By: MIRANDA REECE [facility] On: 05/21/2015 02:28 PM Source: [facility] MHSDOLBEYNONRADSYS Document Id: [id number] ENCY MACHINE OPERATOR documented in this encounter Miscellaneous Notes Miscellaneous - Triston Mccormick, L.P.N. - 04/30/2015 3:32 PM CST PHQ-9 - Teens PHQ-9 - Teens Entered On: 04/30/2015 15:33 CURRENCY MACHINE OPERATOR Performed On: 04/30/2015 15:32 CURRENCY MACHINE OPERATOR by TRISTON MCCORMICK LPN PHQ-9 - Teens Feeling down, depressed, or hopeless : Not at all Little interest or pleasure in doing things : Not at all Trouble falling or staying asleep, or sleeping too much : Not at all Poor appetite or overeating : Not at all Feeling tired or having little energy : Not at all Feeling bad about yourself or that you are a failure : Not at all Trouble concentrating on things : Not at all Moving or speaking slowly; restless or fidgety : Not at all Thoughts that you would be better off /hurting self : Not at all PHQ-9 Score for Teens : 0 Depressed or sad most days : No Problems make work, home, or dealing with others : Not difficult at all Serious thoughts about ending your life : No Ever try to kill yourself : No TRISTON MCCORMICK LPN - 04/30/2015 15:32 CURRENCY MACHINE OPERATOR Source: Smart[employer] system Document Id: [id number] CURRENCY MACHINE OPERATOR!16 ENCY MACHINE OPERATOR Miscellaneous - Triston Mccormick L.P.N. - 04/30/2015 3:28 PM CST Pediatric Cardiopulmonary Specialist Intake/History Pediatric Cardiopulmonary Specialist Intake/History Entered On: 04/30/2015 15:31 CURRENCY MACHINE OPERATOR Performed On: 04/30/2015 15:28 CURRENCY MACHINE OPERATOR by TRISTON MCCORMICK LPN Intake Chief Complaint : physical LMP Date : 04/22/15 Temperature Core : 36.0 DegC(Converted to: 96.8 DegF) (LOW) Peripheral Pulse Rate : 76 /min Respiratory Rate : 16 /min Systolic Blood Pressure : 100 mmHg Diastolic Blood Pressure : 58 mmHg NIBP Mean : 72 mmHg BP Location : Right upper extremity Blood Pressure Cuff Size : Large Height : 158 cm(Converted to: 5 ft 2 inch(es), 62 inch(es)) Actual Weight : 59.5 kg(Converted to: 131 lb 3 oz) Weight Source : Standing scale Dosing Weight Clinic : 59.5 kg Clinic BSA : 1.62 Body Mass Index : 23.83 kg/m2 TRISTON MCCORMICK LPN - 04/30/2015 15:28 CURRENCY MACHINE OPERATOR General Info Accompanied By : Mother, Sibling Information Given By : Patient Languages : Tamazight, Belarusian Is Patient Female and 13-50 no hysterectomy : Yes Status : Patient denies Are you ? : No TRISTON MCCORMICK LPN - 04/30/2015 15:28 CURRENCY MACHINE OPERATOR Subjective Pain Symptoms : No TRISTON MCCORMICK LPN - 04/30/2015 15:28 CURRENCY MACHINE OPERATOR Dependent Habits Exposure to Tobacco Smoke : Care provider denies smoking in home Smoking Status : Never smoker Tobacco 2A : No Alcohol Use : No TRISTON MCCORMICK LPN - 04/30/2015 15:28 CURRENCY MACHINE OPERATOR Caffeine Use Grid Caffeine Use : Current Type : Chocolate, Soft drinks Frequency : Weekly Amount : 2 times per month Last Use : 04/30/15 TRISTON MCCORMICK LPN - 04/30/2015 15:28 CURRENCY MACHINE OPERATOR Recreational Drug Use Grid Drug Use : None TRISTON MCCORMICK LPN - 04/30/2015 15:28 CURRENCY MACHINE OPERATOR Source: [facility] Tradition MidstreamCHART Document Id: [id number] CURRENCY MACHINE OPERATOR!42 ENCY MACHINE OPERATOR documented in this encounter Plan of Treatment Not on filedocumented as of this encounter Procedures Procedure Name Priority Date/Time Associated Comments Diagnosis CHLAMYDIA/GONORRHOEAE Routine 04/30/2015 3:30 PM Results for this AMPLIFIED RNA CURRENCY MACHINE OPERATOR procedure are in the results section. CHLAMYDIA TRACHOMATIS Routine 04/30/2015 3:30 PM Results for this AMPLIFIED RNA CURRENCY MACHINE OPERATOR procedure are in the results section. documented in this encounter Results Chlamydia / Gonorrhoeae Amplified RNA (04/30/2015 3:30 PM CURRENCY MACHINE OPERATOR) Component Value Ref Test Analysis Performed At [facility] Range Method Time Signature HX GC by Nucleic POWERCHART Acid Amplification HXFinal Negative for POWERCHART Neisseria gonorrhea by RNA amplification . HXFinal Reference: POWERCHART Negative HXFinal If you POWERCHART submitted a female urine sample, please note it is a Laboratory Developed Test. Specimen (Source) Anatomical Collection Method Collection Time Re ceived Time Location / / Volume Laterality Urine 04/30/2015 3:30 PM CURRENCY MACHINE OPERATOR Miranda Reece APRN, C.N.P., M.S.N. LAB MICROB IOLOGY - GENERAL ORDERABLES Performing Organization Address City/State/ZIP Code Phon e Number POWERCHART Chlamydia Trachomatis Amplified RNA (04/30/2015 3:30 PM CURRENCY MACHINE OPERATOR) Component Value Ref Test Analysis Performed At [facility] Range Method Time Signature HXChlamydia by POWERCHART Nucleic Acid Amplification HXFinal Negative for POWERCHART Chlamydia trachomatis by RNA amplification. HXFinal Reference: POWERCHART Negative HXFinal If you POWERCHART submitted a female urine sample, please note it is a Laboratory Developed Test. Specimen (Source) Anatomical Collection Method Collection Time Re ceived Time Location / / Volume Laterality Urine 04/30/2015 3:30 PM CURRENCY MACHINE OPERATOR Miranda Reece APRN, C.N.P., M.S.N. LAB MICROB IOLOGY - GENERAL ORDERABLES Performing Organization Address City/State/ZIP Code Phon e Number POWERCHART documented in this encounter Visit Diagnoses Not on filedocumented in this encounter
--- OUTSIDE RECORDS SUMMARY | 2022-01-23 12:50 | XMS_ITS | Encounter Summary ---
:2000 Author Organization [facility] Address [address] [place] [address] Care Team Providers Name Role Phone Chevy, Miranda Guadalupe APRN C.N.P., M.S.N. Primary Care Pr ovider Reason for Visit Reason Comments Follow-up [facility] - [place] Encounter Details Date Type Department Care Team Description 10/13/2017 Office Visit Department of Family Chaparro Payan Bi cuspid Aortic Valve (HCC) (Primary Dx); Medicine, [place] [facility], in [address] [facility] [address] [place], [place] [phone] [phone] (Work) [phone] Social History Tobacco Use Types Packs/Day Years [...] How often do you attend taoist or congregational 1 to 4 times per [...] Sign Reading Time Taken Comments Blood Pressure 100/70 10/13/2017 12:52 PM CDT Pulse 68 10/13/2017 12:52 PM CDT Temperature 36 ??C (96.8 ??F) 10/13/2017 12:52 PM CDT Respiratory Rate - - Oxygen Saturation - - Inhaled Oxygen Concentration - - Weight 74 kg (163 lb 2.3 oz) 10/13/2017 12:52 PM CDT Height - - Body Mass Index 29.09 09/03/2017 10:25 AM CDT Body Mass Index Percentile 92.78 % 10/13/2017 12:52 PM C DT Growth Chart: [facility] (Girls, 2-20 Years) documented in this encounter Progress Notes Chaparro Payan P.A.-C. - 10/13/2017 1:00 PM CDT CHIEF COMPLAINT / REASON FOR VISIT Citlaly Vallejo is a 16 y.o. female who presents for evaluation of Follow-up (ER - [place]). HISTORY OF PRESENT ILLNESS Citlaly presents today for follow-up of recent back pain in the emergency room. She was seen in the emergency room because her back has been bothering her. She works at a local [employer]. 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 She sleeps quite a bit during the day. She just recently had a history and physical by Dr. Ramírez and wanted to review her labs. I reviewed all these with her today which did show any significant abnormalities. She does have a history of a bicuspid aortic valve and is scheduled for an echocardiogram to be done in near future. The most part she otherwise has no concerns except her fatigue and back pain. After her emergency room visit the back pain has been gradually improving. OBJECTIVE Vitals: 10/13/17 1252 BP: 100/70 BP Location: Right arm Patient Position: Sitting Cuff Size: Regular Pulse: 68 Temp: 36 ??C Weight: 74 kg Body mass index is 29.09 kg/m??. PHYSICAL EXAM GENERAL: Patient appears in no acute distress. HEART: Regular rate and rhythm. No murmurs. LUNGS: Clear to auscultation. Back: She has no real discomfort to palpation over lumbar spine this point she had some radiation into her gluteal region into her legs but this has since resolved. She has forward flexibility that is quite poor she can get only to about the middle of her bashir. IMPRESSION / REPORT / PLAN #1 Bicuspid Aortic Valve (HCC) She is scheduled for repeat echocardiogram and this will be done in the near future. I did do some education with her about this today and explained the etiology and treatment options if necessary. #2 Pain Back This is improving. I am going to do an x-ray to get a baseline. I gave her some stretching exercisesthat I wanted to work with I offered her physical therapy but she does not want to right now. She isgoing to work on her physical activity and this will definitely help improve her symptoms. If he hasany questions or problems she will let us know Total time spent today with patient was 25 min of which 20 was [id number] coordination of care and counseling Chaparro Payan P.A.-C. documented in this encounter Plan of Treatment Not on filedocumented as of this encounter Results DX Lumbar Spine 2-3 [...] spondylolysis at L 5 without spondylolisthesis. Chaparro Payan P.A.-C. IMG DIAGNOSTIC IMAGING PROCE BARRETT documented in this encounter Visit Diagnoses Diagnosis Bicuspid Aortic Valve (HCC) - Primary Pain Back Pain Back documented in this encounter Additional Health Concerns Assessment Noted Time PHQ-9 Depression Total Score: 8 10/13/2017 12:58 PM CD T documented as of this encounter Care Teams Warehouse Clerk Relationship Specialty Start Date End Date Chevy, Miranda Guadalupe APRN, C.N.P., PCP - General 02/04/18 M.S.N. [address] [place] [address] documented as of this encounter
--- OUTSIDE RECORDS SUMMARY | 2022-01-23 12:50 | XMS_ITS | Encounter Summary ---
:2000 Author Organization [facility] Address [address] [place] [address] Care Team Providers Name Role Phone Unavailable Primary Care Provider Unavailable Encounter Details Date Type Department Care Team Description 01/30/2011 Hospital Encounter HX [facility] Elmo Kitchen, BEL, C.N.P., D. N.P. [address] [place], [place] [address] (Wo rk) Social History [...] 08/02/2020 relatives? How often do you attend jew or presybeterian 1 to 4 times per year 08/02/2020 services? Do you belong to any clubs or organizations such No 08/02/2020 as jew groups, unions, fraternal or athletic groups, or [...] - Inhaled Oxygen Concentration - - Weight 42.4 kg (93 lb 7.6 oz) 01/30/2011 1:23 PM CDT Height 147.8 cm (4' 10.19) 01/30/2011 1:23 PM CDT Body Mass Index 19.41 01/30/2011 1:23 PM CDT Body Mass Index Percentile 66.23 % 01/30/2011 1:23 PM CD T Growth Chart: [facility] (Girls, 2-20 Years) documented in this encounter Progress Notes Lisa Kitchen APRN, C.N.P. - 01/30/2011 12:00 AM CDT [id number] CHIEF COMPLAINT / REASON FOR VISIT 10 year old well child exam HISTORY OF PRESENT ILLNESS The patient is a 10 year old female brought to the clinic by her dad and her sister is also in attendance. They deny having any concerns today. The patient denies vision or hearing concerns. The patient does wear glasses but she is not wearing them today. She states that she has lost her glasses. The patient is going into the 7th grade. She eats a well balanced diet. She drinks one glass of milk. She goes to bed at 9pm and gets up at 6am. The patient goes to the dentist every 6 months. She patient does not exercise. The patient enjoys school. She watches less than 2 hours of TV a day. Environmental risk were assessed by questioning the patient and dad. They deny having guns in the house. There housing is adequate. No violence in the house. There is alcohol in the house and it is monitored. There is no smoking in the house. Denies mental her concerns. Parent/child interaction is appropriate. CURRENT MEDICATIONS None ALLERGIES Penicillin SYSTEMS REVIEW Denies fevers, chills, night sweats or fatigue. Skin intact. Denies rashes or itching. Head: Denies headache or dizziness. No history of syncope or seizures. Vision is uncorrected today. The patient does have a history of wearing glasses. ENT: Denies hearing changes or ringing in ears. No ear pain or nasal stuffiness. Cardiovascular: No chest pain, palpitations or dizziness. No syncope. Respiratory: No wheezing or cough. Denies shortness of breath. GI: appetite is good. He denies nausea, vomiting, diarrhea or constipation. : Negative. Musculoskeletal: No pain, swelling or redness in muscle or joints. No limitation of motion. Neurologic: No motor or sensory deficits. Moves all of extremities equally . Endocrine: Denies temp. intolerance or increased hunger, thirst or urination. Hem: No history of anemia or bleeding. Psych No history of Depression or Anxiety. PAST MEDICAL/SURGICAL HISTORY None SOCIAL HISTORY The patient lives with her mom and dad and her sister. She is going into the 7th grade. She denies alcohol, tobacco or drug use. She is not sexually active. FAMILY HISTORY Negative VITAL SIGNS Temp6.7, heart rate 60, Respiratory rate 16, Blood pressure over 100/60, height 147.8 cm, weight 42.4 kg and BMI of 19.4. PHYSICAL EXAM General: Healthy appearing female in no acute distress. Grooming and hygiene appropriate. Skin: Warm, dry and pink. No rashes or bruising. Head: Normocephalic. No areas of tenderness. Eyes: conjunctiva clear. Sclera white. No drainage. Pupils equal round and reactive to light. Extraocular movements intact. No nystagmus and lid lag. Red reflex bilaterally. ENT: Ear canals clear. TM's intact, rendon, shiny, light reflex present. No effusions. Nasal mucosa pink and moist. Posterior pharynx pink and moist. Tonsils present without exudate or lesions. Dentition fine. Mouth is clear of lesions. Neck is supple. No masses or thyromegaly. Lymph nodes no cervical lymphadenopathy. Peripheral vessels: Radial and dorsalis pedis 2+ equal bilaterally. Lungs: Clear to auscultation. No wheezes, rales or rhonchi. Heart: Regular rate and rhythm. No murmurs, rubs or gallops. Normal S1. Abdomen: Flat, soft and non distended. Bowel sounds are present times four. No organomegaly. No tenderness on palpation. Female Genitalia: Labia clean and no erythema. External genitalia normal. Ignacio stage 2. Spine: Straight and erect posture. Joints: Full range of motion in all joints without limitations. Extremities: Warm and dry without peripheral edema. Strength equal bilaterally. Gait: Steady and even. Coordinated movements. Mental: Alert and oriented, person, place and time. Neuro: Patellar and ankle reflexes +2. IMPRESSION/REPORT/PLAN Satisfactory 10 year old well child and exam. Anticipatory guidance discussed with dad and patient as documented on the [facility] clinic visit sheet which will be scanned into the EMR also. Immunization given today Tdap and Menactra. Next wellness visit in 1-2 years or as needed. Patient and dad agree with plan. JMS/cmt Signed Lisa Crandall CNP Nurse Practitioner Electronically Signed By: LISA CRANDALL CNP On: 02/06/2011 02:26 pm Modified by and Electronically Signed by: LISA CRANDALL CNP On: 02/06/2011 02:26 pm Source: [facility]SDOLBEYNONRADSYS Document Id: [id number] documented in this encounter Procedure Notes Conversion, Historical Provider Ser - 01/30/2011 1:23 PM CDT Vision Testing Vision Testing Entered On: 01/30/2011 13:25 CDT Performed On: 01/30/2011 13:23 CDT by CHARO ETNORIO Vision Testing Corrective Lenses: Glasses Eye, Right w/o Correction: 20/80 Eye, Left w/o Correction: 20/50 CHARO TENORIO - 01/30/2011 13:23 CDT Source: [facility] POWERCHART Document Id: [id number] CDT!5 documented in this encounter Miscellaneous Notes Miscellaneous - Lisa Kitchen APRN, C.N.P. - 01/30/2011 3:09 PM CDT Ambulatory Patient Summary [address] [address] Visit Information Name: CITLALY HOLLAND Current Date: 01/30/2011 15:09:22 Primary Care Provider: LISA CRANDALL CNP Your Medications Here is a list of your medications. It is important to take your medications as directed. Use a pillbox or chart to help remind you to take your medications. Please let your doctor or nurse know if you have problems taking your medications. Medication/Strength Dose Route Frequency Indications/Special Instructions/Comments No Medications found Your Allergies & Intolerances Substance Reaction Symptoms Category Comments penicillin Drug Your Problem List Problem Status Onset Comments No Problems found Your Recommendations We want to make sure [...] No Appointments found Your Goals/Additional instructions: Source: Drug Response Dx Document Id: [id number] Electronically signed by Conversion, [facility] Silver Lap Machine Tender [id number] at 11/01/2016 2:47 PM CDT Miscellaneous - Lisa Kitchen, BEL, C.N.P. - 01/30/2011 3:09 PM CDT [place] [address] Visit Information Name: CITLALY HOLLAND Current Date: 01/30/2011 15:09:22 Primary Care Provider: LISA CRANDALL CNP, ASHLEY has been given the following list of medications: Your Medications It is important to take your medications as directed. Use a pill box or chart to help remind you to take your medications. Please let your doctor or nurse know if you have problems taking your medications. Medication/Strength Dose Route Frequency Indications/Special Instructions/Comments No Medications found Additional Information: Yes - Current list of reconciled medications is provided and explained to the patient and/or family, guardian/caregiver. Source: Drug Response Dx Document Id: [id number] Miscellaneous - Conversion, Historical Provider Ser - 01/30/2011 1:23 PM CDT Pediatric Helmet Hat Puncher Intake/History Document Has Been Updated Pediatric Helmet Hat Puncher Intake/History Entered On: 01/30/2011 13:24 CDT Performed On: 01/30/2011 13:23 CDT by CHARO TENORIO Intake Chief Complaint: well child 10 yrs ol CHARO TENORIO - 01/30/2011 15:30 CDT Temperature Core: 36.7C(Converted to: 98.1DegF) Peripheral Pulse Rate: 60/min Respiratory Rate: 16/min Systolic Blood Pressure: 100mmHg Diastolic Blood Pressure: 60mmHg NIBP Mean: 73mmHg BP Location: Right upper extremity Heart Rhythm: Regular Height: 147.80cm(Converted to: 4ft 10inch(es), 58.19inch(es)) Actual Weight: 42.400kg(Converted to: 93lb 8oz) Weight Source: Standing scale Dosing Weight Clinic: 42.40kg Clinic BSA: 1.32 Body Mass Index: 19.41kg/m2 CHARO TENORIO - 01/30/2011 13:23 CDT Subjective Pain Symptoms: No CHARO TENORIO - 01/30/2011 13:23 CDT Dependent Habits Tobacco Use/Currently Using: No Alcohol Use: No CHARO TENORIO - 01/30/2011 13:23 CDT Allergy Allergies (Active) penicillin Estimated Onset Date: Unspecified ; Created By: CHARO TENORIO; Reaction Status: Active ; Category: Drug ; Substance: penicillin ; Type: Allergy ; Severity: Mild ; Updated By: CHARO TENORIO; Source: Family ; Reviewed Date: 01/30/2011 13:27 CDT Source: [facility] POWERCHART Document Id: [id number] CDT!3 documented in this encounter Plan of Treatment Not on filedocumented as of this encounter Visit Diagnoses Not on filedocumented in this encounter
--- OUTSIDE RECORDS SUMMARY | 2022-01-23 12:50 | XMS_ITS | Encounter Summary ---
:2000 Author Organization [facility] Address [address] [place] [address] Care Team Providers Name Role Phone Chaparro Payan P.A.-C. Primary Care Provider [phone] Encounter Details Date Type Department Care Team Description 06/15/2003 Historical Ophthalmology [facility]ST OPH Akira Forbes M.D. Social History Tobacco Use Types Packs/Day Years [...] How often do you attend yazidi or episcopalian 1 to 4 times per year 08/02/2020 [...] file documented as of this encounter Progress Akira Harris M.D. - 06/15/2003 12:00 AM CST Eye General CHIEF COMPLAINT ROP check up HISTORY OF PRESENT ILLNESS This is a 2 year 6 month old female who is a twin here for a ROP check up being born at 29 weeks. 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 - see 1 yr #2 no amblyopia DIAGNOSIS #1 microtropia #2 no amblyopia CDM Reports - EYEGEN Id: [id number] Status: Fnl documented in this encounter Plan of Treatment Not on filedocumented as of this encounter Visit Diagnoses Not on filedocumented in this encounter Additional Health Concerns Infection Onset Date Last Indicated Resolved Time COVID19 Pending 02/28/2020 02/28/2020 02/29/2020 4:25 AM CDT COVID19 Pending 03/27/2020 03/28/2020 03/29/2020 10:23 PM CDT COVID19 Pending 06/23/2020 06/23/2020 06/24/2020 2:18 PM 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 PCP - General 02/05/[address] [place] [address] [phone] documented as of this encounter
--- OUTSIDE RECORDS SUMMARY | 2022-01-23 12:50 | XMS_ITS | Encounter Summary ---
:1998 Author Organization [facility] Address [address] [place] [address] Care Team Providers Name Role Phone Unavailable Primary Care Provider Unavailable Encounter Details Date Type Department Care Team Description 1998 - 02/05/1999 Hospital Encounter HX RST CHARLEEN GUTIERREZ 3B Social History Tobacco Use Types Packs/Day Years [...] 08/02/2020 relatives? How often do you attend confucianism or yazidi 1 to 4 times per year 08/02/2020 services? Do you belong to any clubs or organizations such No 08/02/2020 as confucianism groups, unions, fraternal or athletic groups, or [...] Name Priority Date/Time Associated Comments Diagnosis US HEAD Routine 02/05/1999 4:06 PM Resul ts for this CDT procedure are i n the results section. DX ABDOMEN PORTABLE Routine 01/31/1999 1:59 PM Re sults for this ANTERIOR POSTERIOR WITH CDT proc edure are in DECUBITUS 2 VIEWS the result s section. DX ABDOMEN PORTABLE Routine 01/31/1999 5:00 AM Re sults for this ANTERIOR POSTERIOR WITH CDT proc edure are in DECUBITUS 2 VIEWS the result s section. HXGENERAL PATHOLOGY Routine 01/29/1999 1:49 PM Re sults for this REPORT CDT procedure are i n the results section. FL UPPER GI DOUBLE Routine 01/28/1999 1:19 PM Res ults for this CONTRAST WITHOUT KUB CDT procedu re are in the results section. DX ABDOMEN 1 VIEW Routine 01/28/1999 11:01 Result s for this AM CDT procedure are i n the results section. FL SMALL BOWEL SINGLE Routine 01/27/1999 2:36 PM Results for this CONTRAST CDT procedure are i n the results section. FL UPPER GI DOUBLE Routine 01/27/1999 2:36 PM Res ults for this CONTRAST WITHOUT KUB CDT procedu re are in the results section. ECHOCARDIOGRAM Routine 01/23/1999 12:00 Results f or this AM CDT procedure are i n the results section. US HEAD Routine 01/07/1999 10:57 Results for this AM CDT procedure are i n the results section. HX SUBSEQ ORDER FOR Routine 01/03/1999 12:31 Resu lts for this NB? PM CDT proc edure are in ? the result s section. DX CHEST AND Routine 01/02/1999 7:21 AM Re sults for this ABDOMEN PORTABLE 1 VIEW CDT proc edure are in the results section. DX CHEST AND Routine 01/01/1999 10:14 Resu lts for this ABDOMEN PORTABLE 1 VIEW AM CDT proc edure are in the results section. DX ABDOMEN PORTABLE Routine 1998 9:57 AM Re sults for this ANTERIOR POSTERIOR 1 CDT procedu re are in VIEW the results section. DX INFANT CHEST AND Routine 1998 3:19 PM Re sults for this ABDOMEN PORTABLE 1 VIEW CDT proc edure are in the results section. DX CHEST PORTABLE 1 Routine 1998 6:45 AM Re sults for this VIEW CDT procedure are i n the results section. DX ABDOMEN PORTABLE Routine 1998 2:59 PM Re sults for this ANTERIOR POSTERIOR 1 CDT procedu re are in VIEW the results section. DX CHEST AND Routine 1998 1:48 PM Re sults for this ABDOMEN PORTABLE 1 VIEW CDT proc edure are in the results section. DX INFANT CHEST AND Routine 1998 6:04 AM Re sults for this ABDOMEN PORTABLE 1 VIEW CDT proc edure are in the results section. DX ABDOMEN PORTABLE Routine 1998 12:02 Resu lts for this ANTERIOR POSTERIOR 1 AM CDT procedu re are in VIEW the results section. DX INFANT CHEST AND Routine 1998 10:05 Resu lts for this ABDOMEN PORTABLE 1 VIEW PM CDT proc edure are in the results section. DX INFANT CHEST AND Routine 1998 6:07 AM Re sults for this ABDOMEN PORTABLE 1 VIEW CDT proc edure are in the results section. DX CHEST PORTABLE 1 Routine 1998 2:45 PM Re sults for this VIEW CDT procedure are i n the results section. HX SUBSEQ ORDER FOR Routine 1998 8:47 AM Re sults for this NB? CDT proc edure are in ? the result s section. DX CHEST AND Routine 1998 1:14 AM Re sults for this ABDOMEN PORTABLE 1 VIEW CDT proc edure are in the results section. DX CHEST AND Routine 1998 8:49 PM Re sults for this ABDOMEN PORTABLE 1 VIEW CDT proc edure are in the results section. HX SUBSEQ ORDER FOR Routine 1998 6:34 PM Re sults for this NB? CDT proc edure are in ? the result s section. HXGENERAL PATHOLOGY Routine 1998 6:52 AM Re sults for this REPORT CDT procedure are i n the results section. DX CHEST AND Routine 1998 6:24 AM Re sults for this ABDOMEN PORTABLE 1 VIEW CDT proc edure are in the results section. DX CHEST AND Routine 1998 6:17 AM Re sults for this ABDOMEN PORTABLE 1 VIEW CDT proc edure are in the results section. DX INFANT CHEST AND Routine 1998 9:16 AM Re sults for this ABDOMEN PORTABLE 1 VIEW CDT proc edure are in the results section. DX ABDOMEN PORTABLE Routine 1998 9:50 PM Re sults for this ANTERIOR POSTERIOR 1 CDT procedu re are in VIEW the results section. DX ABDOMEN PORTABLE Routine 1998 2:04 PM Re sults for this ANTERIOR POSTERIOR WITH CDT proc edure are in DECUBITUS 2 VIEWS the result s section. DX CHEST AND Routine 1998 11:56 Resu lts for this ABDOMEN PORTABLE 1 VIEW AM CDT proc edure are in the results section. DX INFANT CHEST AND Routine 1998 6:13 AM Re sults for this ABDOMEN PORTABLE 1 VIEW CDT proc edure are in the results section. DX CHEST PORTABLE 1 Routine 1998 6:56 AM Re sults for this VIEW CDT procedure are i n the results section. DX CHEST AND Routine 1998 6:23 AM Re sults for this ABDOMEN PORTABLE 1 VIEW CDT proc edure are in the results section. US HEAD Routine 1998 3:48 PM Resul ts for this CDT procedure are i n the results section. DX CHEST PORTABLE 1 Routine 1998 6:27 AM Re sults for this VIEW CDT procedure are i n the results section. DX CHEST PORTABLE 1 Routine 1998 6:38 AM Re sults for this VIEW CDT procedure are i n the results section. DX CHEST AND Routine 1998 6:57 AM Re sults for this ABDOMEN PORTABLE 1 VIEW CDT proc edure are in the results section. US HEAD Routine 1998 4:08 PM Resul ts for this CDT procedure are i n the results section. DX INFANT CHEST AND Routine 1998 7:42 AM Re sults for this ABDOMEN PORTABLE 1 VIEW CDT proc edure are in the results section. DX CHEST AND Routine 1998 5:47 PM Re sults for this ABDOMEN PORTABLE 1 VIEW CDT proc edure are in the results section. DX INFANT CHEST AND Routine 1998 1:02 PM Re sults for this ABDOMEN PORTABLE 1 VIEW CDT proc edure are in the results section. DX CHEST AND Routine 1998 8:16 AM Re sults for this ABDOMEN PORTABLE 1 VIEW CDT proc edure are in the results section. DX CHEST AND Routine 1998 11:37 Resu lts for this ABDOMEN PORTABLE 1 VIEW PM CDT proc edure are in the results section. documented in this encounter Results US Head (02/05/1999 4:06 PM CDT) Anatomical Region Laterality Modality Head N/A Ultrasound Specimen (Source) Anatomical Collection Method Collection Time Re ceived Time Location / / Volume Laterality 02/05/1999 4:06 PM CDT Narrative 02/05/1999 5:40 PM CDT 05-Feb-1999 16:06:00 ??Exam: US Cranial Pediatrics Indications: *PORTABLE*HEAD-FOLLOW UP ?[id number] ORIGINAL REPORT - 05-Feb-1999 17:40:00 The brain parenchyma is normal in echote xture. The ventricles are normal in size. No evidence of germinal matrix hemorrhage nor definite evidence of periventricular leukomalacia. Corpus callosum is present. I:[id number] Electronically signed by: ?? Yoli Hickman MD. ??[id number] 05-Feb-1999 17:40 Procedure Note Cecily Hickman M.D. - 09/06/2017Form atting of this note might be different from the original. 05-Feb-1999 16:06:00 Exam: US Cranial Pe diatrics Indications: *PORTABLE*HEAD-FOLLOW UP [id number] ORIGINAL REPORT - 05-Feb-1999 17:40:00 The brain parenchyma is normal in echote xture. The ventricles are normal in size. No evidence of germinal matrix hemorrhage nor definite evidence of periventricular leukomalacia. Corpus callosum is present. I:[id number] Electronically signed by: Yoli Hickman MD. [id number] 05-Feb-1999 1 7:40 Braulio GONZALEZ US PROCEDURES DX Abdomen Portable Anterior Posterior with Decubitus 2 Views (01/31/1999 1:59 PM CDT) Anatomical Region Laterality Modality Abdomen N/A Radiographic Imaging Specimen (Source) Anatomical Collection Method Collection Time Re ceived Time Location / / Volume Laterality 01/31/1999 1:59 PM CDT Narrative 01/31/1999 2:36 PM CDT 31-Jan-1999 13:59:00 ??Exam: Portable-Abdomen w Decub Indications: r/o obstruction ORIGINAL REPORT - 31-Jan-1999 14:36:00 Moderate gaseous distention of bowel loo ps. They are slightly more distended than on the study from earlier in the day. Residual contrast within colon which appears decompressed. ??This may represent po st operative change due to relative ??di fference in caliber of the ??small bowel at the anastomotic site and/or edema at the anastomotic site. It could also represent a developing small bowel obstructiv e process. No free air. follow up films are recommended. Electronically signed by: ?? Yoli Hickman MD. ??[id number] 31-Jan-1999 14:36 Procedure Note Cecily Hickman M.D. - 09/06/2017Form atting of this note might be different from the original. 31-Jan-1999 13:59:00 Exam: Portable-Abdo men w Decub Indications: r/o obstruction ORIGINAL REPORT - 31-Jan-1999 14:36:00 Moderate gaseous distention of bowel loo ps. They are slightly more distended than on the study from earlier in the day. Residual contrast within colon which appears decompressed. This may represent post operative change due to relative differe nce in caliber of the small bowel at the anastomotic site and/or edema at the anastomotic site. It could also represent a developing small bowel obstructive process. No free air. follow up films are recommended. Electronically signed by: Yoli Hickman MD. [id number] 31-Jan-1999 1 4:36 Braulio GONZALEZ DIAGNOSTIC IMAGING PROCE DURES DX Abdomen Portable Anterior Posterior with Decubitus 2 Views (01/31/1999 5:00 AM CDT) Anatomical Region Laterality Modality Abdomen N/A Radiographic Imaging Specimen (Source) Anatomical Collection Method Collection Time Re ceived Time Location / / Volume Laterality 01/31/1999 5:00 AM CDT Narrative 01/31/1999 2:49 PM CDT 31-Jan-1999 05:00:00 ??Exam: Portable-Abdomen w Decub Indications: abd. distention REVISED REPORT - 31-Jan-1999 14:49:00 Revised 01/31/99 14:47:18 Lungs are clera. Moderate gaseous disten tion of small bowel loops. There is a small amount of residual contrast within decompressed colon. the distention of the small bowel may be due to edema or relati ve caliber change at the recent anastamo sis of the distal small bowel It could also be due to a developing small bowel obstructive process. No free air. Follow up abdomoinal films are recommended in further evaluation. Electronically signed by: ?? Yoli Hickman MD. ??[id number] 31-Jan-1999 14:49 Procedure Note Cecily Hickman M.D. - 09/06/2017Form atting of this note might be different from the original. 31-Jan-1999 05:00:00 Exam: Portable-Abdo men w Decub Indications: abd. distention REVISED REPORT - 31-Jan-1999 14:49:00 Revised 01/31/99 14:47:18 Lungs are clera. Moderate gaseous disten tion of small bowel loops. There is a small amount of residual contrast within decompressed colon. the distention of the small bowel may be due to edema or relative caliber change at the recent anastamosis of the distal small bowel It could also be due to a developing small bowel obstructive process. No free air. Follow up abdomoinal films are recommended in further evaluation. Electronically signed by: Yoli Hickman MD. [id number] 31-Jan-1999 1 4:49 Robert GONZALEZ DIAGNOSTIC IMAGING PROCE [facility] general Pathology Report (01/29/1999 1:49 PM CDT) Specimen Anatomical Collection Method Collection Time Receive d Time (Source) Location / / Volume Laterality 01/29/1999 1:49 PM 9 1:49 CDT PM CDT Narrative [facility] - 01/29/1999 1:49 PM CDT [id number] Surgical Pathology Requested By: ? Ruben park M.D. ?([id number]) ?? TISSUE DESCRIPTION: ?? Distal ostomy (2.5 cm with ellipse o f skin) and proximal ostomy (5.2 cm in length) ?? [id number] A1, A2 ?? DIAGNOSIS: ?? Distal ostomy, excision: ??Benign sq uamous epithelium and colonic-type mucosa with mild chronic ?? inflammation. ?? Proximal ostomy, excision: ??Benign small bowel mucosa. ?? 29Jan1999 ?Erik TaverasS.:dam Procedure Note 08/20/2017 29Jan1999 Surgical Pathology Requested By: Ruben Shipley M.D. ([id number]) TISSUE DESCRIPTION: Distal ostomy (2.5 cm with ellipse of s kin) and proximal ostomy (5.2 cm in length) [id number] A1, A2 DIAGNOSIS: Distal ostomy, excision: Benign squamou s epithelium and colonic-type mucosa with mild chronic inflammation. Proximal ostomy, excision: Benign small bowel mucosa. 29Jan1999 Erik TaverasS.:suze toney Ruben Shipley M.D. LAB PATHOLOGY/CYTOLOGY ORDER TAYLOR Performing Organization Address City/State/ZIP Code Phon e Number [facility] - [address] Upper GI Double Contrast Without KUB (01/28/1999 1:19 PM CDT) Anatomical Region Laterality Modality Gastro Intestinal N/A Radiographic Imaging Specimen (Source) Anatomical Collection Method Collection Time Re ceived Time Location / / Volume Laterality 01/28/1999 1:19 PM CDT Narrative 01/28/1999 1:23 PM CDT 28-Jan-1999 13:19:00 ??Exam: GI-UGI Indications: ?? ORIGINAL REPORT - 28-Jan-1999 13:23:00 UGI. ??Gastrograffin was injected throug h the patient's OGT. ??Stomach and duodenum are normal in appearance. ??Dilated loop of bowel at the level of the patient's osteomy as demonstrated on loopogram p erformed 01/27/99. ??Remainder of the sma ll bowel is normal in caliber with normal peristalsis. Electronically signed by: ?? John ??Khanh MICHAEL ??[id number] 28-Jan-1999 13:23 Procedure Note Kaye Cassidy M.D. - 09/06/2017Form atting of this note might be different from the original. 28-Jan-1999 13:19:00 Exam: GI-UGI Indications: ORIGINAL REPORT - 28-Jan-1999 13:23:00 UGI. Gastrograffin was injected through the patient's OGT. Stomach and duodenum are normal in appearance. Dilated loop of bowel at the level of the patient's osteomy as demonstrated on loopogram performed 01/27/99. Remainder of the small bowel is normal i n caliber with normal peristalsis. Electronically signed by: John Cassidy MD [id number] 28-Jan-1999 13:2 3 Hernan GONZALEZ FLUOROSCOPY PROCEDURES DX Abdomen 1 View (01/28/1999 11:01 AM CDT) Anatomical Region Laterality Modality Abdomen N/A Radiographic Imaging Specimen (Source) Anatomical Collection Method Collection Time Re ceived Time Location / / Volume Laterality 01/28/1999 11:01 AM CDT Narrative 01/28/1999 11:05 AM CDT 28-Jan-1999 11:01:00 ??Exam: Abdomen Indications: CONTRAST CLEARED FROM PREV. UGI STUDY? ORIGINAL REPORT - 28-Jan-1999 11:05:00 Small amount of residual contrast materi al in loops of bowel in the pelvis. ??Bowel gas pattern otherwise unremarkable. ??Mild bilateral perihilar infiltrates. ??Enteric tube in stomach. Electronically signed by: ?? John ??Khanh MICHAEL ??[id number] 28-Jan-1999 11:05 Procedure Note Kaye Cassidy M.D. - 09/06/2017Form atting of this note might be different from the original. 28-Jan-1999 11:01:00 Exam: Abdomen Indications: CONTRAST CLEARED FROM PREV. UGI STUDY? ORIGINAL REPORT - 28-Jan-1999 11:05:00 Small amount of residual contrast materi al in loops of bowel in the pelvis. Bowel gas pattern otherwise unremarkable. Mild bilateral perihilar infiltrates. Enteric tube in stomach. Electronically signed by: John Cassidy MD [id number] 28-Jan-1999 11:0 5 Hernan Maza M.D. [facility] DIAGNOSTIC IMAGING PROCE [facility] Small Bowel (01/27/1999 2:36 PM CDT) Anatomical Region Laterality Modality Gastro Intestinal N/A Radiographic Imaging Specimen (Source) Anatomical Collection Method Collection Time Re ceived Time Location / / Volume Laterality 01/27/1999 2:36 PM CDT Narrative 01/27/1999 3:14 PM CDT 27-Jan-1999 14:36:00 ??Exam: GI-Small Bowel Indications: pre-op exam ORIGINAL REPORT - 27-Jan-1999 15:14:00 Water soluble contrast was initially inj ected through the distal limb of the ostomy. Contrast filled decompressed distal small bowel and decompressed colon. These bowel loops demonstrate normal peristal sis. Contrast was then injected through the upper more proximal limb of the ostomy. Contrast filled a distended loop of bowel which demonstrated little or no peristalsis throughout the exam. This bowel loop was in the right mid abdomen and is approximately 3-4cm in length. Contrast then extended into more proximal small bowel loops which demonstrated fairly normal-appearing peristalsis, but they too were mildly dilated. ?? The appearance of the very distal portio n of the proximal ostomy loop may represent an area of nonfunctioning bowel from the patient's previous pneumotosis. Electronically signed by: ?? Yoli Hickman MD. ??[id number] 27-Jan-1999 15:14 Procedure Note Cecily Hickman M.D. - 09/06/2017Form atting of this note might be different from the original. 27-Jan-1999 14:36:00 Exam: GI-Small Abraham l Indications: pre-op exam ORIGINAL REPORT - 27-Jan-1999 15:14:00 Water soluble contrast was initially inj ected through the distal limb of the ostomy. Contrast filled decompressed distal small bowel and decompressed colon. These bowel loops demonstrate normal peristalsis. Contrast was then injected through the u pper more proximal limb of the ostomy. Contrast filled a distended loop of bowel which demonstrated little or no peristalsis throughout the exam. This bowel loop was in the right mid abdomen and is approximately 3 -4cm in length. Contrast then extended into more proximal small bowel loops which demonstrated fairly normal-appearing peristalsis, but they too were mildly dilated. The appearance of the very distal portio n of the proximal ostomy loop may represent an area of nonfunctioning bowel from the patient's previous pneumotosis. Electronically signed by: Yoli Hickman MD. [id number] 27-Jan-1999 1 5:14 Robert Nick M.D. [facility] FLUOROSCOPY PROCEDURES [place] Upper GI Double Contrast Without KUB (01/27/1999 2:36 PM CDT) Anatomical Region Laterality Modality Gastro Intestinal N/A Radiographic Imaging Specimen (Source) Anatomical Collection Method Collection Time Re ceived Time Location / / Volume Laterality 01/27/1999 2:36 PM CDT Narrative 01/27/1999 3:14 PM CDT 27-Jan-1999 14:36:00 ??Exam: GI-UGI Indications: pre-op exam ORIGINAL REPORT - 27-Jan-1999 15:14:00 Water soluble contrast was initially inj ected through the distal limb of the ostomy. Contrast filled decompressed distal small bowel and decompressed colon. These bowel loops demonstrate normal peristal sis. Contrast was then injected through the upper more proximal limb of the ostomy. Contrast filled a distended loop of bowel which demonstrated little or no peristalsis throughout the exam. This bowel loop was in the right mid abdomen and is approximately 3-4cm in length. Contrast then extended into more proximal small bowel loops which demonstrated fairly normal-appearing peristalsis, but they too were mildly dilated. ?? The appearance of the very distal portio n of the proximal ostomy loop may represent an area of nonfunctioning bowel from the patient's previous pneumotosis. Electronically signed by: ?? Yoli Hickman MD. ??[id number] 27-Jan-1999 15:14 Procedure Note Cecily Hickman M.D. - 09/06/2017Form atting of this note might be different from the original. 27-Jan-1999 14:36:00 Exam: GI-UGI Indications: pre-op exam ORIGINAL REPORT - 27-Jan-1999 15:14:00 Water soluble contrast was initially inj ected through the distal limb of the ostomy. Contrast filled decompressed distal small bowel and decompressed colon. These bowel loops demonstrate normal peristalsis. Contrast was then injected through the u pper more proximal limb of the ostomy. Contrast filled a distended loop of bowel which demonstrated little or no peristalsis throughout the exam. This bowel loop was in the right mid abdomen and is approximately 3 -4cm in length. Contrast then extended into more proximal small bowel loops which demonstrated fairly normal-appearing peristalsis, but they too were mildly dilated. The appearance of the very distal portio n of the proximal ostomy loop may represent an area of nonfunctioning bowel from the patient's previous pneumotosis. Electronically signed by: Yoli Hickman MD. [id number] 27-Jan-1999 1 5:14 Robert Nick M.D. [facility] FLUOROSCOPY PROCEDURES Echocardiogram (01/23/1999 12:00 AM CDT) Anatomical Region Laterality Modality Echocardiography Specimen (Source) Anatomical Location Collection Method / Collectio n Time Received Time / Laterality Volume 01/23/1999 Impressions 01/23/1999 12:00 AM CDT ?1. ??Moderate to severe biventr icular hypertrophy with severe ?biventricular dysfunction . ??Global ejection fraction approximately 25%. ?2. ??Bicuspid aortic valve. ??M orphologically there appears to be mild ?stenosis but there is no gradient. ?3. ??Mild tricuspid regurgitati on. ?4. ??Patent foramen ovale. ?5. ??No ductus arteriosus or co arctation. 2-D COMMENT: ??TAPE NUMBER: [id number] ?Complete two-dimensional, color flow, and Doppler echocardiography ? are performed on this premature i nfant. ??The examination reveals moderate ? to severe biventricular hypertrop hy with severe biventricular dysfunction. ? The global ejection fraction woul d be approximately 25% for both the right ? and left ventricle. ??The only an atomic abnormality visualized is the ? presence of a bicuspid aortic lucy ve. ??There is no systolic gradient across ? the valve of any significance. ?? However, the morphology of the valve does ? suggest the presence of mild sten osis. ??There is no aortic regurgitation. ? The mitral valve is also competen t. ??The tricuspid valve does demonstrate ? mild regurgitation. ??Flow veloci ties suggest that the right ventricular ? pressure is somewhat less than le ft ventricular pressure at this time. ? There is a patent foramen ovale p resent. ??Systemic and pulmonary veins are ? normal. ??There is no ductus misty riosus visualized. ??No other abnormalities ? are detected. ??Specifically, pul monary arteries and aortic arch are ? normal. M-MODE/2-D MEASUREMENTS: ?M-M ? 2-D ? units ?? normals ? VENTRICULAR SEPTUM: ? Thickness (d) ?6 * ? mm ?3-4 ? POSTERIOR WALL: ? Thickness (d) ?6 * ? mm ?3-4 ? LEFT VENTRICLE: ? Dimension (d) ?10 * ?mm ?14-17 ? LV mass ?8 ? g ? LV mass index ?67 ?g/m2 ? PULMONARY VALVE/ARTERIES: ? LPA dimension ?5.0 ? mm ? RPA dimension ?5.0 ? mm ? THORACIC AORTA: ? Arch ? 5.0 ? mm ? DOPPLER MEASUREMENTS: ?ky ?units ?? normals ? AORTIC SYSTOLIC VALVE AREAS - ROUTIN E - [place] VALVE ? LVOT velocity (V1) ? 0.1 ? m/sec ? Peak Aortic velocity (V2) ?0.4 * ? m/sec ?? 0.5-1.8 ? Peak Aortic time monique int(TVI2) 29 .0 ?cm ? V1/V2 ratio ?0.25 ? LVOT diameter ?0.5 ? cm ? Valve area (by velocity) ? 0.05 ?cm2 ? Peak velocity obtained from apex ? TRICUSPID SYSTOLIC - ROUTINE - NATIV E VALVE ? Peak velocity ?2.2 ? m/sec ? Maximal instantaneous gradient 19 ?mm Hg ? RA pressure ?10 ?mm Hg ? RV pressure ?29 ?mm Hg ? Narrative 01/23/1999 12:00 AM CDT [id number] ??ECHO ?FINAL REPORT ?? REPORT DATE: 23Jan1999 REFERRING MD: ??NICU ?RESPONSIBLE MD: ??Travis PBettie Mancera [id number] PROCEDURE TYPES: ?? 2-D, Doppler Video, and Color Flow. REFERRAL DIAGNOSIS: ?? Cardiomyopathy. ??Pediatric congenit al heart disease. HEMODYNAMICS: ?? Heart rate 151 BPM. ?? BP=44/31 FINAL Procedure Note Provider, Historical - 08/31/2017Formatt ing of this note might be different from the original. [id number] ECHO FINAL REPORT REPORT DATE: 23Jan1999 REFERRING MD: NICU RESPONSIBLE MD: Jermaine Farrell [id number] PROCEDURE TYPES: 2-D, Doppler Video, and Color Flow. REFERRAL DIAGNOSIS: Cardiomyopathy. 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 HEMODYNAMICS: Heart rate 151 BPM. BP=44/31 FINAL IMPRESSION: 1. Moderate to severe biventricular hyp ertrophy with severe biventricular dysfunction. Global eject ion fraction approximately 25%. 2. Bicuspid aortic valve. Morphological ly there appears to be mild stenosis but there is no gradient. 3. Mild tricuspid regurgitation. 4. Patent foramen ovale. 5. No ductus arteriosus or coarctation. 2-D COMMENT: TAPE NUMBER: [id number] Complete two-dimensional, color flow, a nd Doppler echocardiography are performed on this premature infant. The examination reveals moderate to severe biventricular hypertrophy wit h severe biventricular dysfunction. The global ejection fraction would be a pproximately 25% for both the right and left ventricle. The only anatomic a bnormality visualized is the presence of a bicuspid aortic valve. Th ere is no systolic gradient across the valve of any significance. However, the morphology of the valve does suggest the presence of mild stenosis. There is no aortic regurgitation. The mitral valve is also competent. The tricuspid valve does demonstrate mild regurgitation. Flow velocities sug gest that the right ventricular pressure is somewhat less than left jasiel tricular pressure at this time. There is a patent foramen ovale present . Systemic and pulmonary veins are normal. There is no ductus arteriosus v isualized. No other abnormalities are detected. Specifically, pulmonary a rteries and aortic arch are normal. M-MODE/2-D MEASUREMENTS: M-M 2-D units normals VENTRICULAR SEPTUM: Thickness (d) 6 * mm 3-4 POSTERIOR WALL: Thickness (d) 6 * mm 3-4 LEFT VENTRICLE: Dimension (d) 10 * mm 14-17 LV mass 8 g LV mass index 67 g/m2 PULMONARY VALVE/ARTERIES: LPA dimension 5.0 mm RPA dimension 5.0 mm THORACIC AORTA: Arch 5.0 mm DOPPLER MEASUREMENTS: ky units normals AORTIC SYSTOLIC VALVE AREAS - ROUTINE - [place] VALVE LVOT velocity (V1) 0.1 m/sec Peak Aortic velocity (V2) 0.4 * m/sec 0 .5-1.8 Peak Aortic time monique int(TVI2) 29.0 cm V1/V2 ratio 0.25 LVOT diameter 0.5 cm Valve area (by velocity) 0.05 cm2 Peak velocity obtained from apex TRICUSPID SYSTOLIC - ROUTINE - [place] V ALVE Peak velocity 2.2 m/sec Maximal instantaneous gradient 19 mm Hg RA pressure 10 mm Hg RV pressure 29 mm Hg Historical Provider CV ECHO PROCEDURES US Head (01/07/1999 10:57 AM CDT) Anatomical Region Laterality Modality Head N/A Ultrasound Specimen (Source) Anatomical Collection Method Collection Time Re ceived Time Location / / Volume Laterality 01/07/1999 10:57 AM CDT Narrative 01/07/1999 1:50 PM CDT 07-Jan-1999 10:57:00 ??Exam: US Cranial Pediatrics Indications: *PORTABLE* ?? R/O ANY CHANGE FROM PREV ORIGINAL REPORT - 07-Jan-1999 13:50:00 Ultrasound examination of the head again demonatrates mild increased echogenicity in the periventricular white matter. Appearance is unchanged when compared to 12-16-98. Due to the lack of interval pena e this likely represents a normal halo i n this patient. Ventricular size and configuration remain within normal limits. No evidence of germinal matrix or intraparenchymal hemorrhage. Corpus callosum is present. ?? I&D:100.705, 100.120 Electronically signed by: ?? John ??Khanh MICHAEL ??[id number] 07-Jan-1999 13:50 Procedure Note Kaye Cassidy M.D. - 09/06/2017Form atting of this note might be different from the original. 07-Jan-1999 10:57:00 Exam: US Cranial Pe diatrics Indications: *PORTABLE* R/O ANY CHANGE FROM PREV ORIGINAL REPORT - 07-Jan-1999 13:50:00 Ultrasound examination of the head again demonatrates mild increased echogenicity in the periventricular white matter. Appearance is unchanged when compared to 12-16-98. Due to the lack of interval change this likely represents a normal halo in this patient . Ventricular size and configuration remain within normal limits. No evidence of germinal matrix or intraparenchymal hemorrhage. Corpus callosum is present. I&D:100.705, 100.120 Electronically signed by: John Cassidy MD [id number] 07-Jan-1999 13:5 0 Robert Nick M.D. IMG US PROCEDURES HX SUBSEQ ORDER FOR NB? (01/03/1999 12:31 PM CDT) Specimen Anatomical Collection Method Collection Time Receive d Time (Source) Location / / Volume Laterality 01/03/1999 12:31 01/12/1999 1:14 PM CDT AM CDT Narrative [facility] - [facility] - 01/03/1999 12:31 PM CDT 03 Jan 1999 ?[id number] ?Ro ?12:31 ?? Subsq Order for NB: ?Blood Component ?R BC, Irradiated Leukoreduced ?CPDA-1, Divided ?Transfused ? 04 Jan 1999 ?Unit Number Id ? [id number] Procedure Note 09/15/2017 03 Jan 1999 [id number] Ro 12:31 Subsq Order for NB: Blood Component RBC, Irradiated Leukore duced CPDA-1, Divided Transfused 04 Jan 1999 Unit Number Id [id number] Historical Provider LAB HISTORICAL ORDERS Performing Organization Address City/State/ZIP Code Phon e Number [facility] - [address] [place], [place] [address] [facility] DX Chest and Abdomen Portable 1 View (01/02/1999 7:21 AM CDT) Anatomical Region Laterality Modality Chest, Abdomen N/A Radiographic Imaging Specimen (Source) Anatomical Collection Method Collection Time Re ceived Time Location / / Volume Laterality 01/02/1999 7:21 AM CDT Narrative 01/02/1999 7:36 AM CDT 02-Jan-1999 07:21:00 ??Exam: Peds - Chest Abdomen Indications: evaluate bowel sounds and c heck infiltrates ORIGINAL REPORT - 02-Jan-1999 07:36:00 Right PICC tip in RA. ??Enteric tube tip in stomach. ??Since yesterday the infiltrate in the medial aspect of the right upper lobe has improved. ??Normal bowel gas pattern. ??Ostomy RLQ. Electronically signed by: ?? John ??Khanh MICHAEL ??[id number] 02-Jan-1999 07:36 Procedure Note Kaye Cassidy M.D. - 09/06/2017Form atting of this note might be different from the original. 02-Jan-1999 07:21:00 Exam: Peds - Chest Abdomen Indications: evaluate bowel sounds and c heck infiltrates ORIGINAL REPORT - 02-Jan-1999 07:36:00 Right PICC tip in RA. Enteric tube tip i n stomach. Since yesterday the infiltrate in the medial aspect of the right upper lobe has improved. Normal bowel gas pattern. Ostomy RLQ. Electronically signed by: John Cassidy MD [id number] 02-Jan-1999 07:3 6 Braulio Franco M.D. IMG DIAGNOSTIC IMAGING PROCE [facility] DX Infant Chest and Abdomen Portable 1 View (01/01/1999 10:14 AM CDT) Anatomical Region Laterality Modality Chest, Abdomen N/A Radiographic Imaging Specimen (Source) Anatomical Collection Method Collection Time Re ceived Time Location / / Volume Laterality 01/01/1999 10:14 AM CDT Narrative 01/01/1999 10:59 AM CDT 01-Jan-1999 10:14:00 ??Exam: Peds - Chest Abdomen Indications: status post w/ illestomy ORIGINAL REPORT - 01-Jan-1999 10:59:00 Infiltrate in the medial aspect of the r ight upper lobe. Lungs are otherwise clear. Normal heart size. OG. Gas scattered throughout normal caliber bowel loops. Ostomy RLQ. Electronically signed by: ?? Yoli Hickman MD. ??[phone] 01-Jan-1999 10:59 Procedure Note Cecily Hickman M.D. - 09/06/2017Form atting of this note might be different from the original. 01-Jan-1999 10:14:00 Exam: Peds - Chest Abdomen Indications: status post w/ illestomy ORIGINAL REPORT - 01-Jan-1999 10:59:00 Infiltrate in the medial aspect of the r ight upper lobe. Lungs are otherwise clear. Normal heart size. OG. Gas scattered throughout normal caliber bowel loops. Ostomy RLQ. Electronically signed by: Yoli Hickman MD. [id number] 01-Jan-1999 1 0:59 Braulio Franco M.D. IMG DIAGNOSTIC IMAGING PROCE DURES DX Abdomen Portable Anterior Posterior 1 View (1998 9:57 AM CDT) Anatomical Region Laterality Modality Abdomen N/A Radiographic Imaging Specimen (Source) Anatomical Collection Method Collection Time Re ceived Time Location / / Volume Laterality 1998 9:57 AM CDT Narrative 1998 10:02 AM CDT 1998 09:57:00 ??Exam: Portable-Abdomen Indications: S/P SB RESECTION ORIGINAL REPORT - 1998 10:02:00 OG. Mild gaseous distentinof bowel loops in the mid abdomen. No evidence of obstruction. Ostomy RLQ. Electronically signed by: ?? Yoli Hickman MD. ??[id number] 10:02 Procedure Note Cecily Hickman M.D. - 09/06/2017Form atting of this note might be different from the original. 1998 09:57:00 Exam: Portable-Abdo men Indications: S/P SB RESECTION ORIGINAL REPORT - 1998 10:02:00 OG. Mild gaseous distentinof bowel loops in the mid abdomen. No evidence of obstruction. Ostomy RLQ. Electronically signed by: Yoli Hickman MD. [id number] 1998 1 0:02 Braulio Franco M.D. IMG DIAGNOSTIC IMAGING PROCE DURES DX Chest and Abdomen Portable 1 View (1998 3:19 PM CDT) Anatomical Region Laterality Modality Chest, Abdomen N/A Radiographic Imaging Specimen (Source) Anatomical Collection Method Collection Time Re ceived Time Location / / Volume Laterality 1998 3:19 PM CDT Narrative 1998 2:53 PM CDT 1998 15:19:00 ??Exam: Peds - Chest Abdomen Indications: CHECK CENTRAL LINE PLACEMEN T REVISED REPORT - 1998 14:53:00 REVISED REPORT 98 14:51:51 Mild cardiac enlargement. ??There are so me granular changes in the lungs. ??Feeding tube tip in ??the stomach. ??Central line tip RA. ??Bowel gas pattern normal. Electronically signed by: ?? Chris Vega ??[id number] 14:53 Procedure Note Paolo Vega M.D. - 09/06/2017Format ting of this note might be different from the original. 1998 15:19:00 Exam: Peds - Chest Abdomen Indications: CHECK CENTRAL LINE PLACEMEN T REVISED REPORT - 1998 14:53:00 REVISED REPORT 98 14:51:51 Mild cardiac enlargement. There are some granular changes in the lungs. Feeding tube tip in the stomach. Central line tip RA. Bowel gas pattern normal. Electronically signed by: Chris Vega [id number] 14:53 Dave Fields Ph.D. IMG DIAGNOSTIC IMAGING [facility] DX Chest Portable 1 View (1998 6:45 AM CDT) Anatomical Region Laterality Modality Chest N/A Radiographic Imaging Specimen (Source) Anatomical Collection Method Collection Time Re ceived Time Location / / Volume Laterality 1998 6:45 AM CDT Narrative 1998 8:58 AM CDT 1998 06:45:00 ??Exam: Portable-Chest Indications: f/u ileostomy ORIGINAL REPORT - 1998 07:35:00 Since yesterday, hazy left upper lung in filtrates have developed. The left subclavian line has been advanced further into the RA. ?? This should be pulled back a few cm. Slight cardiac enlargement. ??Gas distended loops of bowel in the abdomen. Electronically signed by: ?? B.R. Bullernestina ??[phone] ([id number]) 1998 07:35 I have reviewed the films/images and agr ee with the above interpretation. Electronically signed by: ?? Yoli Hickman MD. ??[id number] 1998 08:58 Procedure Note Cecily Hickman M.D. - 09/06/2017Form atting of this note might be different from the original. 1998 06:45:00 Exam: Portable-Ches t Indications: f/u ileostomy ORIGINAL REPORT - 1998 07:35:00 Since yesterday, hazy left upper lung in filtrates have developed. The left subclavian line has been advanced further into the RA. This should be pulled back a few cm. Slight cardiac enlargement. Gas distended loops of bowel in the abdomen. Electronically signed by: Esequiel Velasco [phone] ([id number]) 1998 07 :35 I have reviewed the films/images and agr ee with the above interpretation. Electronically signed by: Yoli Hickman MD. [id number] 1998 0 8:58 Braulio Franco M.D. IMG DIAGNOSTIC IMAGING PROCE DURES DX Abdomen Portable Anterior Posterior 1 View (1998 2:59 PM CDT) Anatomical Region Laterality Modality Abdomen N/A Radiographic Imaging Specimen (Source) Anatomical Collection Method Collection Time Re ceived Time Location / / Volume Laterality 1998 2:59 PM CDT Narrative 1998 3:28 PM CDT 1998 14:59:00 ??Exam: Portable-Abdomen Indications: r/u resect bx ORIGINAL REPORT - 1998 15:28:00 Mild gaseous distention of bowel loops i n the right mid abdomen which appear midly thicked hale. Moderate gaseous distention of bowel loops in the left mid abdomen. OG. Ostomy RLQ. Central line with tip in RA. Electronically signed by: ?? Yoli Hickman MD. ??[id number] 15:28 Procedure Note Cecily Hickman M.D. - 09/06/2017Form atting of this note might be different from the original. 1998 14:59:00 Exam: Portable-Abdo men Indications: r/u resect bx ORIGINAL REPORT - 1998 15:28:00 Mild gaseous distention of bowel loops i n the right mid abdomen which appear midly thicked hale. Moderate gaseous distention of bowel loops in the left mid abdomen. OG. Ostomy RLQ. Central line with tip in RA. Electronically signed by: Yoli Hickman MD. [id number] 1 5:28 Braulio Franco M.D. IMG DIAGNOSTIC IMAGING PROCE DURES DX Chest and Abdomen Portable 1 View (1998 1:48 PM CDT) Anatomical Region Laterality Modality Chest, Abdomen N/A Radiographic Imaging Specimen (Source) Anatomical Collection Method Collection Time Re ceived Time Location / / Volume Laterality 1998 1:48 PM CDT Narrative 1998 3:25 PM CDT 1998 13:48:00 ??Exam: Peds - Chest Abdomen Indications: r/u resect bx. ORIGINAL REPORT - 1998 15:25:00 ETt with tip just above david. Prominen t heart size. Lungs are clear. Left subclavina line with tip overlying RA. OG. Electronically signed by: ?? Yoli Hickman MD. ??[id number] 1998 15:25 Procedure Note Cecily Hickman M.D. - 09/06/2017Form atting of this note might be different from the original. 1998 13:48:00 Exam: Peds - Chest Abdomen Indications: r/u resect bx. ORIGINAL REPORT - 1998 15:25:00 ETt with tip just above david. Prominen t heart size. Lungs are clear. Left subclavina line with tip overlying RA. OG. Electronically signed by: Yoli Hickman MD. [id number] 1998 1 5:25 Braulio Franco M.D. IMG DIAGNOSTIC IMAGING PROCE DURES DX Chest and Abdomen Portable 1 View (1998 6:04 AM CDT) Anatomical Region Laterality Modality Chest, Abdomen N/A Radiographic Imaging Specimen (Source) Anatomical Collection Method Collection Time Re ceived Time Location / / Volume Laterality 1998 6:04 AM CDT Narrative 1998 7:46 AM CDT 1998 06:04:00 ??Exam: Peds - Chest Abdomen Indications: s/p ileostomy, r/o nec ORIGINAL REPORT - 1998 07:46:00 ETT tip at the level of the clavicles. E nteric tube tip in the stomach. Central venous catheter tip in the proximal RA. Hazy bilateral perihilar infiltrate. Minimally gas-distended loops of bowel in the abdomen. No definite free air. Electronically signed by: ?? Mannie Kitchen M.D. [phone] 0 7:46 Procedure Note Georgia Kitchen M.D. - 09/06/2017F ormatting of this note might be different from the original. 1998 06:04:00 Exam: Peds - Chest Abdomen Indications: s/p ileostomy, r/o nec ORIGINAL REPORT - 1998 07:46:00 ETT tip at the level of the clavicles. E nteric tube tip in the stomach. Central venous catheter tip in the proximal RA. Hazy bilateral perihilar infiltrate. Minimally gas-distended loops of bowel in the abdomen. No definite free air. Electronically signed by: Mannie Kitchen M.D. [phone] 0 7:46 Braulio Franco M.D. IMG DIAGNOSTIC IMAGING PROCE DURES DX Abdomen Portable Anterior Posterior 1 View (1998 12:02 AM CDT) Anatomical Region Laterality Modality Abdomen N/A Radiographic Imaging Specimen (Source) Anatomical Collection Method Collection Time Re ceived Time Location / / Volume Laterality 1998 12:02 AM CDT Narrative 1998 3:39 PM CDT 1998 00:02:00 ??Exam: Portable-Abdomen Indications: LEFT LAT DECUB BOWEL PERF ORIGINAL REPORT - 1998 00:24:00 Lateral decubitus view demonstrates a fe w small foci of air along the lateral right abdominal wall which could represent free air. ??OG-tube. ??Lucency in the ?? LUQ likely represents a gas distended st omach. ??Nondilated gas distended loops of bowel. ?? Electronically signed by: ?? Esequiel Velasco ??[phone] ([id number]) 1998 00:24 I have reviewed the films/images and agr ee with the above interpretation. Electronically signed by: ?? Yoli Hickman MD. ??[id number] 15:39 Procedure Note Cecily Hickman M.D. - 09/06/2017Form atting of this note might be different from the original. 1998 00:02:00 Exam: Portable-Abdo men Indications: LEFT LAT DECUB BOWEL PERF ORIGINAL REPORT - 1998 00:24:00 Lateral decubitus view demonstrates a fe w small foci of air along the lateral right abdominal wall which could represent free air. OG-tube. Lucency in the LUQ likely represents a gas distended st omach. Nondilated gas distended loops of bowel. Electronically signed by: Esequiel Velasco [phone] ([id number]) 1998 00 :24 I have reviewed the films/images and agr ee with the above interpretation. Electronically signed by: Yoli Hickman MD. [id number] 1 5:39 Robert Nick M.D. IMLucía DIAGNOSTIC IMAGING [facility] DX Infant Chest and Abdomen Portable 1 View (1998 10:05 PM CDT) Anatomical Region Laterality Modality Chest, Abdomen N/A Radiographic Imaging Specimen (Source) Anatomical Collection Method Collection Time Re ceived Time Location / / Volume Laterality 1998 10:05 PM CDT Narrative 1998 3:44 PM CDT 1998 22:05:00 ??Exam: Peds - Chest Abdomen Indications: f/u RDS, belly perf, centra l line placement ORIGINAL REPORT - 1998 22:14:00 Left subclavian catheter with tip in the SVC. OG tube. ETT in satisfactory position. Infiltrate and atelectasis in the left hilar region. Air along the right lateral abdomen and possibly just under the right lateral hemidiaphragm could be floyd e intraperitoneal air. Nondilated loops of bowel throughout the abdomen. Tubing projected over the pelvis could represent a Ball catheter. Electronically signed by: ?? Esequiel Velasco ??[phone] ([id number]) 1998 22:14 I have reviewed the films/images and agr ee with the above interpretation. Electronically signed by: ?? Yoli Hickman MD. ??[id number] 15:44 Procedure Note Cecily Hickman M.D. - 09/06/2017Form atting of this note might be different from the original. 1998 22:05:00 Exam: Peds - Chest Abdomen Indications: f/u RDS, belly perf, centra l line placement ORIGINAL REPORT - 1998 22:14:00 Left subclavian catheter with tip in the SVC. OG tube. ETT in satisfactory position. Infiltrate and atelectasis in the left hilar region. Air along the right lateral abdomen and possibly just under the right lateral hemidiaphragm could be free intraperiton eal air. Nondilated loops of bowel throughout the abdomen. Tubing projected over the pelvis could represent a Ball catheter. Electronically signed by: Esequiel Velasco [phone] ([id number]) 1998 22 :14 I have reviewed the films/images and agr ee with the above interpretation. Electronically signed by: Yoli Hickman MD. [id number] 1998 1 5:44 Robert Nick M.D. IMLucía DIAGNOSTIC IMAGING PROCE [employer] DX Infant Chest and Abdomen Portable 1 View (1998 6:07 AM CDT) Anatomical Region Laterality Modality Chest, Abdomen N/A Radiographic Imaging Specimen (Source) Anatomical Collection Method Collection Time Re ceived Time Location / / Volume Laterality 1998 6:07 AM CDT Narrative 1998 9:26 AM CDT 1998 06:07:00 ??Exam: Peds - Chest Abdomen Indications: R/O NEC S/P ILEOSTOMY, ches t/abd with decub ORIGINAL REPORT - 1998 07:25:00 ETT in satisfactory position. Enteric tu be with tip in stomach. Tubing projected in the lower midabdomen. Hazy bilateral diffuse pulmonary infiltrates have not changed significantly since 98. Nondi lated loops of bowel throughout the abdo men. ??No free air. Electronically signed by: ?? Esequiel Velasco ??[phone] ([id number]) 1998 07:25 I have reviewed the films/images and agr ee with the above interpretation. Electronically signed by: ?? Yoli Hickman MD. ??[id number] 09:26 Procedure Note Cecily Hickman M.D. - 09/06/2017Form atting of this note might be different from the original. 1998 06:07:00 Exam: Peds - Chest Abdomen Indications: R/O NEC S/P ILEOSTOMY, ches t/abd with decub ORIGINAL REPORT - 1998 07:25:00 ETT in satisfactory position. Enteric tu be with tip in stomach. Tubing projected in the lower midabdomen. Hazy bilateral diffuse pulmonary infiltrates have not changed significantly since 98. Nondilated loops of bowel throughout the abdomen. No free air. Electronically signed by: Esequiel Velasco [phone] ([id number]) 1998 07 :25 I have reviewed the films/images and agr ee with the above interpretation. Electronically signed by: Yoli Hickman MD. [id number] 1998 0 9:26 Braulio GONZALEZ DIAGNOSTIC IMAGING PROC[facility] DX Chest Portable 1 View (1998 2:45 PM CDT) Anatomical Region Laterality Modality Chest N/A Radiographic Imaging Specimen (Source) Anatomical Collection Method Collection Time Re ceived Time Location / / Volume Laterality 1998 2:45 PM CDT Narrative 1998 2:56 PM CDT 1998 14:45:00 ??Exam: Portable-Chest Indications: free air f/u NEC ORIGINAL REPORT - 1998 14:56:00 ETT in good position. Two feeding tubes with tips in the stomach. NOndistended gas-filled loops of bowel in the central abdomen. These are not as distened as they were on films this morning. At the cent ral location, there may be some peritone al fluid. Hazy densities remain in the lung. Electronically signed by: ?? Chris Vega ??[id number] 14:56 Procedure Note Paolo Vega M.D. - 09/06/2017Format ting of this note might be different from the original. 1998 14:45:00 Exam: Portable-Ches t Indications: free air f/u NEC ORIGINAL REPORT - 1998 14:56:00 ETT in good position. Two feeding tubes with tips in the stomach. NOndistended gas-filled loops of bowel in the central abdomen. These are not as distened as they were on films this morning. At the central location, there may be some peritoneal f luid. Hazy densities remain in the lung. Electronically signed by: Chris Vega [id number] 14:56 Braulio Franco M.D. IMG DIAGNOSTIC IMAGING PROCE DURES HX SUBSEQ ORDER FOR NB? (1998 8:47 AM CDT) Specimen Anatomical Collection Method Collection Time Receive d Time (Source) Location / / Volume Laterality 1998 8:47 AM 9 1:16 CDT AM CDT [facility] 1998 8:47 AM CDT 1998 ?[id number] ?Ro ?08:47 ?? Subsq Order for NB: ?Blood Component ?R BC, Irradiated Leukoreduced ?CPDA-1, Divided ?Transfused ? 1998 ?Unit Number Id ? [id number] Procedure Note 09/15/2017 1998 [id number] Ro 08:47 Subsq Order for NB: Blood Component RBC, Irradiated Leukore duced CPDA-1, Divided Transfused 1998 Unit Number Id [id number] Historical Provider LAB HISTORICAL ORDERS Performing Organization Address City/State/ZIP Code Phon e Number [facility] - [address] [place], [place] [address] [facility] DX Chest and Abdomen Portable 1 View (1998 1:14 AM CDT) Anatomical Region Laterality Modality Chest, Abdomen N/A Radiographic Imaging Specimen (Source) Anatomical Collection Method Collection Time Re ceived Time Location / / Volume Laterality 1998 1:14 AM CDT Narrative 1998 5:16 AM CDT 1998 01:14:00 ??Exam: Peds - Chest Abdomen Indications: s/p bowel perforation ORIGINAL REPORT - 1998 05:16:00 ET tube is in the upper trachea at the l evel of T2. Hazy infiltrate in both perihilar regions. There may be fluid in the abdomen. Tip of the OG tube is in the stomach. Electronically signed by: ?? Anh Calderon ?[id number] 1998 0 5:16 Procedure Note Gee Calderon M.D. - 09/06/2017Form atting of this note might be different from the original. 1998 01:14:00 Exam: Peds - Chest Abdomen Indications: s/p bowel perforation ORIGINAL REPORT - 1998 05:16:00 ET tube is in the upper trachea at the l evel of T2. Hazy infiltrate in both perihilar regions. There may be fluid in the abdomen. Tip of the OG tube is in the stomach. Electronically signed by: Anh Calderon MD [id number] 05:16 Reed GONZALEZ DIAGNOSTIC IMAGING PROCE [facility] DX Infant Chest and Abdomen Portable 1 View (1998 8:49 PM CDT) Anatomical Region Laterality Modality Chest, Abdomen N/A Radiographic Imaging Specimen (Source) Anatomical Collection Method Collection Time Re ceived Time Location / / Volume Laterality 1998 8:49 PM CDT Narrative 1998 9:45 PM CDT 1998 20:49:00 ??Exam: Peds - Chest Abdomen Indications: DECUBITUS, INCREASING DISTE NTION, R/O FREE AIR ORIGINAL REPORT - 1998 21:07:00 Large amounts of free intraperitoneal ai r worrisome for a bowel perforation. Moderate gaseous distention of several loops of small bowel with a relative paucity of air in the colon. No air is seen withi n the rectum. Diffuse hazy opacity of th e right lung is unchanged from previous examinations. Left lower lobe infiltrate. Enteric tube in the stomach. UAC overlies the right SI joint. UVC at the lower m argin of T8. Normal cardiothymic silhoue tte. Service notified. Electronically signed by: ?? Mannie Fu ??[phone] ([id number]) 22-Dec-18 99 21:07 I have reviewed the films/images and agr ee with the above interpretation. Electronically signed by: ?? Chris Vega ??[phone] 21:45 Procedure Note Paolo Vega M.D. - 09/06/2017Format ting of this note might be different from the original. 1998 20:49:00 Exam: Peds - Chest Abdomen Indications: DECUBITUS, INCREASING DISTE NTION, R/O FREE AIR ORIGINAL REPORT - 1998 21:07:00 Large amounts of free intraperitoneal ai r worrisome for a bowel perforation. Moderate gaseous distention of several loops of small bowel with a relative paucity of air in the colon. No air is seen within the rectum. Diffuse hazy opacity of the righ t lung is unchanged from previous examinations. Left lower lobe infiltrate. Enteric tube in the stomach. UAC overlies the right SI joint. UVC at the lower margin of T8. Normal cardiothymic silhouette. Service notifie d. Electronically signed by: Mannie Fu [phone] ([id number]) 1998 21:07 I have reviewed the films/images and agr ee with the above interpretation. Electronically signed by: Chris Vega [phone] 21:45 Reed [facility] DI[facility] PROCE DURES HX SUBSEQ ORDER FOR NB? (1998 6:34 PM CDT) Specimen Anatomical Collection Method Collection Time Receive d Time (Source) Location / / Volume Laterality 1998 6:34 PM 9 1:16 CDT AM CDT Narrative [facility] - [facility] - 1998 6:34 PM CDT 1998 ?[id number] ?Ro ?18:34 ?? Subsq Order for NB: ?Blood Component ?R BC, Irradiated Leukoreduced ?CPDA-1, Divided ?Transfused ? 1998 ?Unit Number Id ? [id number] ?Blood Component ?R BC, Irradiated Leukoreduced ?CPDA-1, Divided ?Transfused ? 1998 ?Unit Number Id ? [id number] Procedure Note 09/15/2017 1998 [id number] Ro 18:34 Subsq Order for NB: Blood Component RBC, Irradiated Leukore duced CPDA-1, Divided Transfused 1998 Unit Number Id [id number] Blood Component RBC, Irradiated Leukore duced CPDA-1, Divided Transfused 1998 Unit Number Id [id number] Historical Provider LAB HISTORICAL ORDERS Performing Organization Address City/State/ZIP Code Phon e Number [facility] - [address] [place], [place] [address] [facility] Hx general Pathology Report (1998 6:52 AM CDT) Specimen Anatomical Collection Method Collection Time Receive d Time (Source) Location / / Volume Laterality 1998 6:52 AM 9 6:52 CDT AM CDT Narrative [facility] - 1998 6:52 AM CDT [id number] Surgical Pathology Requested By: ? Bryant Maza M.D. ? ([id number]) ?? TISSUE DESCRIPTION: ?? 4 cm small bowel ?? [id number] A1 ?? DIAGNOSIS: ?? Small bowel, partial resection: ??Se gment of small bowel with marked ischemic changes, ?? consistent with necrotizing enteroco litis. ?? [id number] ?Brian Taveras.S.:mgs Procedure Note 08/20/2017 [id number] Surgical Pathology Requested By: Hernan Maza M.D. ( [id number]) TISSUE DESCRIPTION: 4 cm small bowel [id number] A1 DIAGNOSIS: Small bowel, partial resection: Segment of small bowel with marked ischemic changes, consistent with necrotizing enterocolit is. [id number] Abdi TaverasB.S.:mg s Hernan Maza M.D. LAB PATHOLOGY/CYTOLOGY ORDER TAYLOR Performing Organization Address City/State/ZIP Code Phon e Number [facility] - [address] [place], [place] [address] [facility] DX Infant Chest and Abdomen Portable 1 View (1998 6:24 AM CDT) Anatomical Region Laterality Modality Chest, Abdomen N/A Radiographic Imaging Specimen (Source) Anatomical Collection Method Collection Time Re ceived Time Location / / Volume Laterality 1998 6:24 AM CDT Narrative 1998 9:35 AM CDT 1998 06:24:00 ??Exam: Peds - Chest Abdomen Indications: R/O NEC ?? FOLLOW RDS REVISED REPORT - 1998 09:35:00 REVISED REPORT 98 09:32:56 Mild cardiac enalrgement. Left lower lob e infiltrate. Hazy right perihlar infiltrate. UVC with tip over RA. UAC wit tip over right SI joint. MOderate to marked gseous distention of bowel loops. This has an apperance suggestive of an obstructi ve process. Electronically signed by: ?? Yoli Hickman MD. ??[id number] 09:35 Procedure Note Cecily Hickman M.D. - 09/06/2017Form atting of this note might be different from the original. 1998 06:24:00 Exam: Peds - Chest Abdomen Indications: R/O NEC FOLLOW RDS REVISED REPORT - 1998 09:35:00 REVISED REPORT 98 09:32:56 Mild cardiac enalrgement. Left lower lob e infiltrate. Hazy right perihlar infiltrate. UVC with tip over RA. UAC wit tip over right SI joint. MOderate to marked gseous distention of bowel loops. This has an apperance suggestive of an obstructive process. Electronically signed by: Yoli Hickman MD. [id number] 0 9:35 Robert Nick M.D. IMG DIAGNOSTIC IMAGING PROCE [facility] DX Chest and Abdomen Portable 1 View (1998 6:17 AM CDT) Anatomical Region Laterality Modality Chest, Abdomen N/A Radiographic Imaging Specimen (Source) Anatomical Collection Method Collection Time Re ceived Time Location / / Volume Laterality 1998 6:17 AM CDT Narrative 1998 12:15 PM CDT 1998 06:17:00 ??Exam: Peds - Chest Abdomen Indications: r/o nec, follow rds ORIGINAL REPORT - 1998 06:50:00 The dilatation of the loop of bowel in t he RLQ has increased since yesterday. In addition, a number of loops of bowel in the midabdmonen are now dilated. Findings consistent with necrotizing enterocolit is. Diffuse bilateral fine granular pulm onary infiltrates are again seen. Because of a shallower inspiration today, it is difficult to determine if these have changed from yesterday. Enteric tube with tip in stomach. UAC. UVC with tip in RA. Electronically signed by: ?? Esequiel Velasco ??[phone] ([id number]) 1998 06:50 I have reviewed the films/images and agr ee with the above interpretation. Electronically signed by: ?? Yoli Hickman MD. ??[id number] 12:15 Procedure Note Cecily Hickman M.D. - 09/06/2017Form atting of this note might be different from the original. 1998 06:17:00 Exam: Peds - Chest Abdomen Indications: r/o nec, follow rds ORIGINAL REPORT - 1998 06:50:00 The dilatation of the loop of bowel in t he RLQ has increased since yesterday. In addition, a number of loops of bowel in the midabdmonen are now dilated. Findings consistent with necrotizing enterocolitis. Diffuse bilateral fine granular pulmonary infilt rates are again seen. Because of a shallower inspiration today, it is difficult to determine if these have changed from yesterday. Enteric tube with tip in stomach. UAC. UVC with tip in RA. Electronically signed by: Esequiel Velasco [phone] ([id number]) 1998 06 :50 I have reviewed the films/images and agr ee with the above interpretation. Electronically signed by: Yoli Hickman MD. [phone] 1 2:15 Robert [facility]NO[facility]AGING PROCE [facility] DX Infant Chest and Abdomen Portable 1 View (1998 9:16 AM CDT) Anatomical Region Laterality Modality Chest, Abdomen N/A Radiographic Imaging Specimen (Source) Anatomical Collection Method Collection Time Re ceived Time Location / / Volume Laterality 1998 9:16 AM CDT Narrative 1998 9:45 AM CDT 1998 09:16:00 ??Exam: Peds - Chest Abdomen Indications: f/u dilated loop ORIGINAL REPORT - 1998 09:45:00 Since yesterday, there has been no signi ficant change in the dilated loop of bowel in the RLQ. Findings are worrisome for necrotizing enterocolitis. No pneumatosis. Mild fine granular infiltrates both lungs. Enteric tube. UAC. UVC. Electronically signed by: ?? John ??Khanh MICHAEL ??[id number] 09:45 Procedure Note Kaye Cassidy M.D. - 09/06/2017Form atting of this note might be different from the original. 1998 09:16:00 Exam: Peds - Chest Abdomen Indications: f/u dilated loop ORIGINAL REPORT - 1998 09:45:00 Since yesterday, there has been no signi ficant change in the dilated loop of bowel in the RLQ. Findings are worrisome for necrotizing enterocolitis. No pneumatosis. Mild fine granular infiltrates both lungs. Enteric tube. UAC. UVC. Electronically signed by: John Cassidy MD 97 1998 09:4 5 Robert Nick M.D. [facility] DI[facility]ING PROCE [facility] DX Abdomen Portable Anterior Posterior 1 View (1998 9:50 PM CDT) Anatomical Region Laterality Modality Abdomen N/A Radiographic Imaging Specimen (Source) Anatomical Collection Method Collection Time Re ceived Time Location / / Volume Laterality 1998 9:50 PM CDT Narrative 1998 10:53 AM CDT 1998 21:50:00 ??Exam: Portable-Abdomen Indications: LEFT LATERAL DECUB ONLY ORIGINAL REPORT - 1998 10:03:00 No free intraperitoneal air. Multiple ga s-distended bowel loops. Fine granular pulmonary infiltrates, consistent with RDS. OG tube tip in the stomach. UVC tip in RA. UAC tip L4-L5 interspace. Electronically signed by: ?? China Arrieta ??[phone] ([id number]) 1998 1 0:03 I have reviewed the films/images and agr ee with the above interpretation. Electronically signed by: ?? John ??Khanh MICHAEL ??[id number] 10:53 Procedure Note Kaye Cassidy M.D. - 09/06/2017Form atting of this note might be different from the original. 1998 21:50:00 Exam: Portable-Abdo men Indications: LEFT LATERAL DECUB ONLY ORIGINAL REPORT - 1998 10:03:00 No free intraperitoneal air. Multiple ga s-distended bowel loops. Fine granular pulmonary infiltrates, consistent with RDS. OG tube tip in the stomach. UVC tip in RA. UAC tip L4-L5 interspace. Electronically signed by: China Arrieta [phone] ([id number]) 1998 10: 03 I have reviewed the films/images and agr ee with the above interpretation. Electronically signed by: John Cassidy MD [phone] 10:5 3 Historical Provider IMG DIAGNOSTIC IMAGING PROCE DURES DX Abdomen Portable Anterior Posterior with Decubitus 2 Views (1998 2:04 PM CDT) Anatomical Region Laterality Modality Abdomen N/A Radiographic Imaging Specimen (Source) Anatomical Collection Method Collection Time Re ceived Time Location / / Volume Laterality 1998 2:04 PM CDT Narrative 1998 2:12 PM CDT 1998 14:04:00 ??Exam: Portable-Abdomen w Decub Indications: r/o perf. ORIGINAL REPORT - 1998 14:12:00 There is no evidence of free air. There is a moderately distended rounded ??loops of bowel inthe RLQ which would be worrisome for an area of necrotizing enterocolitis. Follow up films ar recommended. Electronically signed by: ?? Yoli Hickman MD. ??[phone] 14:12 Procedure Note Cecily Hickman M.D. - 09/06/2017Form atting of this note might be different from the original. 1998 14:04:00 Exam: Portable-Abdo men w Decub Indications: r/o perf. ORIGINAL REPORT - 1998 14:12:00 There is no evidence of free air. There is a moderately distended rounded loops of bowel inthe RLQ which would be worrisome for an area of necrotizing enterocolitis. Follow up films ar recommended. Electronically signed by: Yoli Hickman MD. [phone] 1 4:12 Robert Nick M.D. IMG DIAGNOSTIC IMAGING PROCE DURES DX Chest and Abdomen Portable 1 View (1998 11:56 AM CDT) Anatomical Region Laterality Modality Chest, Abdomen N/A Radiographic Imaging Specimen (Source) Anatomical Collection Method Collection Time Re ceived Time Location / / Volume Laterality 1998 11:56 AM CDT Narrative 1998 12:53 PM CDT 1998 11:56:00 ??Exam: Peds - Chest Abdomen Indications: f/u RDS ORIGINAL REPORT - 1998 12:53:00 Lungs are clear. Prominent heart size. M ild to moderate gaseous distention of bowel loops. The bowel loops in the RLQ are smooth in contour and would be worrisome for necrotizing necrotizing. Follow abdominal films are recommended. Electronically signed by: ?? Yoli Hickman MD. ??[id number] 1998 12:53 Procedure Note Cecily Hickman M.D. - 09/06/2017Form atting of this note might be different from the original. 1998 11:56:00 Exam: Peds - Chest Abdomen Indications: f/u RDS ORIGINAL REPORT - 1998 12:53:00 Lungs are clear. Prominent heart size. M ild to moderate gaseous distention of bowel loops. The bowel loops in the RLQ are smooth in contour and would be worrisome for necrotizing necrotizing. Follow abdominal films are recommended. Electronically signed by: Yoli Hickman MD. [id number] 1998 1 2:53 Robert Nick M.D. IMG DIAGNOSTIC IMAGING PROCE DURES DX Infant Chest and Abdomen Portable 1 View (1998 6:13 AM CDT) Anatomical Region Laterality Modality Chest, Abdomen N/A Radiographic Imaging Specimen (Source) Anatomical Collection Method Collection Time Re ceived Time Location / / Volume Laterality 1998 6:13 AM CDT Narrative 1998 9:22 AM CDT 1998 06:13:00 ??Exam: Peds - Chest Abdomen Indications: follow RSD ORIGINAL REPORT - 1998 07:17:00 Minimal fine granular inflitrates in the upper lungs. UVC tip is not seen but is not in the RA. OG tube tip in stomach. UAC tip L4-L5 interspace. Gas filled bowel loops throughout the abdomen. Electronically signed by: ?? China Arrieta ??[phone] ([id number]) 1998 0 7:17 I have reviewed the films/images and agr ee with the above interpretation. Electronically signed by: ?? Yoli Hickman MD. ??[phone] 09:22 Procedure Note Cecily Hickman M.D. - 09/06/2017Form atting of this note might be different from the original. 1998 06:13:00 Exam: Peds - Chest Abdomen Indications: follow RSD ORIGINAL REPORT - 1998 07:17:00 Minimal fine granular inflitrates in the upper lungs. UVC tip is not seen but is not in the RA. OG tube tip in stomach. UAC tip L4-L5 interspace. Gas filled bowel loops throughout the abdomen. Electronically signed by: China Arrieta [phone] ([id number]) 1998 07: 17 I have reviewed the films/images and agr ee with the above interpretation. Electronically signed by: Yoli Hickman MD. [phone] 0 9:22 Robert [facility] DIAGNOSTIC IMAGING PROCE [facility] DX Chest Portable 1 View (1998 6:56 AM CDT) Anatomical Region Laterality Modality Chest N/A Radiographic Imaging Specimen (Source) Anatomical Collection Method Collection Time Re ceived Time Location / / Volume Laterality 1998 6:56 AM CDT Narrative 1998 7:03 AM CDT 1998 06:56:00 ??Exam: Portable-Chest Indications: follow rds ORIGINAL REPORT - 1998 07:03:00 Since yesteray, the ETT has been removed . ??Enteric tube, UAC, and UVC, remain in place and are unchanged in position. ??Pulmonary infiltrates have improved. Electronically signed by: ?? John ??Khanh MICHAEL ??[phone] 07:03 Procedure Note Kaye Cassidy M.D. - 09/06/2017Form atting of this note might be different from the original. 1998 06:56:00 Exam: Portable-Ches t Indications: follow rds ORIGINAL REPORT - 1998 07:03:00 Since yesteray, the ETT has been removed . Enteric tube, UAC, and UVC, remain in place and are unchanged in position. Pulmonary infiltrates have improved. Electronically signed by: John Cassidy MD [phone] 07:0 3 Robert Nick M.D. IMG DIAGNOSTIC IMAGING PROCE DURES DX Infant Chest and Abdomen Portable 1 View (1998 6:23 AM CDT) Anatomical Region Laterality Modality Chest, Abdomen N/A Radiographic Imaging Specimen (Source) Anatomical Collection Method Collection Time Re ceived Time Location / / Volume Laterality 1998 6:23 AM CDT Narrative 1998 10:51 AM CDT 1998 06:23:00 ??Exam: Peds - Chest Abdomen Indications: RDS ORIGINAL REPORT - 1998 07:14:00 The ETT tip is at the david. Slight imp rovement in the pulmonary infiltrates since yesterday. UAC tip is at the superior endplate of L5. UVC tip in RA. No significant change in the bowel gas pattern. Electronically signed by: ?? China Arrieta ??[phone] ([id number]) 1998 0 7:14 I have reviewed the films/images and agr ee with the above interpretation. Electronically signed by: ?? Chris Vega ??[phone] 10:51 Procedure Note Paolo Vega M.D. - 09/06/2017Format ting of this note might be different from the original. 1998 06:23:00 Exam: Peds - Chest Abdomen Indications: RDS ORIGINAL REPORT - 1998 07:14:00 The ETT tip is at the david. Slight imp rovement in the pulmonary infiltrates since yesterday. UAC tip is at the superior endplate of L5. UVC tip in RA. No significant change in the bowel gas pattern. Electronically signed by: China Arrieta [phone] ([id number]) 1998 07: 14 I have reviewed the films/images and agr ee with the above interpretation. Electronically signed by: Chris Vega [phone] 10:51 Robert Nick M.D. [facility] Head (1998 3:48 PM CDT) Anatomical Region Laterality Modality Head N/A Ultrasound Specimen (Source) Anatomical Collection Method Collection Time Re ceived Time Location / / Volume Laterality 1998 3:48 PM CDT Narrative 1998 5:38 PM CDT 1998 15:48:00 ??Exam: US Cranial Pediatrics Indications: baby head ? portable ORIGINAL REPORT - 1998 17:38:00 I:100.705 ??There is slightly increased echotexture in the periventricular white matter. While this may represent a normal variant, periventricular leukomalacia cannot be excluded. Follow-up head ultras ound in three weeks is recommended. No d efinite evidence of germinal matrix hemorrhage. Slightly prominent extra-axial fluid which can be normal for age. No intraventricular hemorrhage. Corpus callosum is present. ??D:100.120 Electronically signed by: ?? Yoli Hickman MD. ??[id number] 17:38 Procedure Note Cecily Hickman M.D. - 09/06/2017Form atting of this note might be different from the original. 1998 15:48:00 Exam: US Cranial Pe diatrics Indications: baby head portable ORIGINAL REPORT - 1998 17:38:00 I:100.705 There is slightly increased ec hotexture in the periventricular white matter. While this may represent a normal variant, periventricular leukomalacia cannot be excluded. Follow-up head ultrasound in three weeks is recommended. No definite evidence of germinal matrix hemorrhage. Slightly prominent extra-axial fluid which can be normal for age. No intraventricular hemorrhage. Corpus callosum is present. D:100.120 Electronically signed by: Yoli Hickman MD. [phone] 1 7:38 Robert Nick M.D. IMG US PROCEDURES DX Chest Portable 1 View (1998 6:27 AM CDT) Anatomical Region Laterality Modality Chest N/A Radiographic Imaging Specimen (Source) Anatomical Collection Method Collection Time Re ceived Time Location / / Volume Laterality 1998 6:27 AM CDT Narrative 1998 11:15 AM CDT 1998 06:27:00 ??Exam: Portable-Chest Indications: FOLLOW RDS REVISED REPORT - 1998 11:15:00 REVISED REPORT 98 11:10:47 ETT with tip at david. Mild hazy lung i nfiltrates which have improved since the previous CXR of 98. Prominent cardiac apex. OG. UAC with tip overlying L4. UVC wit tip over RA. Normal abdominal gas pattern. Electronically signed by: ?? Yoli Hickman MD. ??[id number] 11:15 Procedure Note Cecily Hickman M.D. - 09/06/2017Form atting of this note might be different from the original. 1998 06:27:00 Exam: Portable-Ches t Indications: FOLLOW RDS REVISED REPORT - 1998 11:15:00 REVISED REPORT 98 11:10:47 ETT with tip at david. Mild hazy lung i nfiltrates which have improved since the previous CXR of 98. Prominent cardiac apex. OG. UAC with tip overlying L4. UVC wit tip over RA. Normal abdominal gas pattern. Electronically signed by: Yoli Hickman MD. [phone] 1 1:15 Robert Nick M.D. IMG DIAGNOSTIC IMAGING PROCE DURES DX Chest Portable 1 View (1998 6:38 AM CDT) Anatomical Region Laterality Modality Chest N/A Radiographic Imaging Specimen (Source) Anatomical Collection Method Collection Time Re ceived Time Location / / Volume Laterality 1998 6:38 AM CDT Narrative 1998 9:20 AM CDT 1998 06:38:00 ??Exam: Portable-Chest Indications: FOLLOW RDS REVISED REPORT - 1998 09:20:00 REVISED REPORT 98 09:18:18 Shallow inspiration. ??Given differences in inspiration there is no significant change in the mild pulmonary infiltrates since yesterday. ??Appliances are unchanged. Electronically signed by: ?? John ??Khanh MICHAEL ??[phone] 09:20 Procedure Note Kaye Cassidy M.D. - 09/06/2017Form atting of this note might be different from the original. 1998 06:38:00 Exam: Portable-Ches t Indications: FOLLOW RDS REVISED REPORT - 1998 09:20:00 REVISED REPORT 98 09:18:18 Shallow inspiration. Given differences i n inspiration there is no significant change in the mild pulmonary infiltrates since yesterday. Appliances are unchanged. Electronically signed by: John Cassidy MD [phone] 09:2 0 Clinton Luna M.D. [facility] DI[facility]ING PROCE DURES DX Infant Chest and Abdomen Portable 1 View (1998 6:57 AM CDT) Anatomical Region Laterality Modality Chest, Abdomen N/A Radiographic Imaging Specimen (Source) Anatomical Collection Method Collection Time Re ceived Time Location / / Volume Laterality 1998 6:57 AM CDT Narrative 1998 9:01 AM CDT 1998 06:57:00 ??Exam: Peds - Chest Abdomen Indications: FOLLOW RDS ORIGINAL REPORT - 1998 07:54:00 Bilateral pulmonary infiltrates have imp roved since yesterday. ETT with tip at the thoracic inlet could be advanced 2 cm. UVC tip in RA. UAC tip at the inferior endplate L3. OG tube tip in the stomach. Normal bowel gas pattern. Electronically signed by: ?? China Arrieta ??[phone] ([id number]) 1998 0 7:54 I have reviewed the films/images and agr ee with the above interpretation. Electronically signed by: ?? John ??Khanh MICHAEL ??[phone] 09:01 Procedure Note Kaye Cassidy M.D. - 09/06/2017Form atting of this note might be different from the original. 1998 06:57:00 Exam: Peds - Chest Abdomen Indications: FOLLOW RDS ORIGINAL REPORT - 1998 07:54:00 Bilateral pulmonary infiltrates have imp roved since yesterday. ETT with tip at the thoracic inlet could be advanced 2 cm. UVC tip in RA. UAC tip at the inferior endplate L3. OG tube tip in the stomach. Normal bowel gas pattern. Electronically signed by: China Arrieta [phone] ([id number]) 1998 07: 54 I have reviewed the films/images and agr ee with the above interpretation. Electronically signed by: John Cassidy MD [phone] 09:0 1 Robert Nick M.D. IMG DIAGNOSTIC IMAGING PROCE [facility] US Head (1998 4:08 PM CDT) Anatomical Region Laterality Modality Head N/A Ultrasound Specimen (Source) Anatomical Collection Method Collection Time Re ceived Time Location / / Volume Laterality 1998 4:08 PM CDT Narrative 1998 5:29 PM CDT 1998 16:08:00 ??Exam: US Cranial Pediatrics Indications: *PORTABLE*HEAD-R/O IVH ?1ST [id number] ORIGINAL REPORT - 1998 17:29:00 I:100.705 ??No definite evidence of germ inal matrix hemorrhage. Ventricles are normal in size. There is increased echotexture in the periventricular white matter, more prominent on the right. While this may represent a normal halo, periventri cular leukomalacia cannot be excluded. No definite evidence of intraventricular hemorrhage. Corpus callosum is present. ??D:100.120 Electronically signed by: ?? Yoli Hickman MD. ??[phone] 17:29 Procedure Note Cecily Hickman M.D. - 09/06/2017Form atting of this note might be different from the original. 1998 16:08:00 Exam: US Cranial Pe diatrics Indications: *PORTABLE*HEAD-R/O IVH [facility] [id number] ORIGINAL REPORT - 1998 17:29:00 I:100.705 No definite evidence of germin al matrix hemorrhage. Ventricles are normal in size. There is increased echotexture in the periventricular white matter, more prominent on the right. While this may represent a normal halo, periventricular leukomalaci a cannot be excluded. No definite evidence of intraventricular hemorrhage. Corpus callosum is present. D:100.120 Electronically signed by: Yoli Hickman MD. [phone] 1 7:29 Robert Nick M.D. [facility] US PROCEDURES DX Infant Chest and Abdomen Portable 1 View (1998 7:42 AM CDT) Anatomical Region Laterality Modality Chest, Abdomen N/A Radiographic Imaging Specimen (Source) Anatomical Collection Method Collection Time Re ceived Time Location / / Volume Laterality 1998 7:42 AM CDT Narrative 1998 8:03 AM CDT 1998 07:42:00 ??Exam: Peds - Chest Abdomen Indications: FOLLOW RDS ORIGINAL REPORT - 1998 08:03:00 ET tube with tip above the thoracic inle t. ??Moderate diffuse bilateral lung infiltrates which are slightly increased form 98. ??UVC with tip over RA. ??UAC with tip over L3. ??There is a small shyla unt of gas within the stomach. ??No gas within bowel loops. Electronically signed by: ?? Yoli Hickman MD. ??[phone] 08:03 Procedure Note Cecily Hickman M.D. - 09/06/2017Form atting of this note might be different from the original. 1998 07:42:00 Exam: Peds - Chest Abdomen Indications: FOLLOW RDS ORIGINAL REPORT - 1998 08:03:00 ET tube with tip above the thoracic inle t. Moderate diffuse bilateral lung infiltrates which are slightly increased form 98. UVC with tip over RA. UAC with tip over L3. There is a small amount of gas within the stomach. No gas within bowel loops. Electronically signed by: Yoli Hickman MD. [phone] 0 8:03 Robert Nick M.D. IMG DIAGNOSTIC IMAGING PROCE [facility] DX Chest and Abdomen Portable 1 View (1998 5:47 PM CDT) Anatomical Region Laterality Modality Chest, Abdomen N/A Radiographic Imaging Specimen (Source) Anatomical Collection Method Collection Time Re ceived Time Location / / Volume Laterality 1998 5:47 PM CDT Narrative 1998 10:19 AM CDT 1998 17:47:00 ??Exam: Peds - Chest Abdomen Indications: Respiratory distress ORIGINAL REPORT - 1998 18:34:00 ET tube with the tip above the upper [address] Enteric tube with the tip in the proximal stomach. UVC with the tip at the lower endplate of T8 vertebral body. UAC with the tip at the lower endplate of L3 v ertebral body. Gas is seen only in the s tomach. Granular infiltrates in both lungs. No significant change compared to today's earlier film. No pneumothorax. Electronically signed by: ?? Sydney Madden M.D. [phone] 18: 34 I have reviewed the films/images and agr ee with the above interpretation. Electronically signed by: ?? Yoli Hickman MD. ??[id number] 10:19 Procedure Note Cecily Hickman M.D. - 09/06/2017Form atting of this note might be different from the original. 1998 17:47:00 Exam: Peds - Chest Abdomen Indications: Respiratory distress ORIGINAL REPORT - 1998 18:34:00 ET tube with the tip above the upper [address]. Enteric tube with the tip in the proximal stomach. UVC with the tip at the lower endplate of T8 vertebral body. UAC with the tip at the lower endplate of L3 vertebral body. Gas is seen only in the stomach. G ranular infiltrates in both lungs. No significant change compared to today's earlier film. No pneumothorax. Electronically signed by: Sydney Madden M.D. [phone] 18: 34 I have reviewed the films/images and agr ee with the above interpretation. Electronically signed by: Yoli Hickman MD. [id number] 1 0:19 Robert Nick M.D. [facility] DIAGNOSTIC IMAGING PROCE DURES DX Chest and Abdomen Portable 1 View (1998 1:02 PM CDT) Anatomical Region Laterality Modality Chest, Abdomen N/A Radiographic Imaging Specimen (Source) Anatomical Collection Method Collection Time Re ceived Time Location / / Volume Laterality 1998 1:02 PM CDT Narrative 1998 1:29 PM CDT 1998 13:02:00 ??Exam: Peds - Chest Abdomen Indications: RESP. DISTRESS ORIGINAL REPORT - 1998 13:29:00 Since earlier today the ETT has pulled b ack and tip is at the C6 level and should be advanced. ??Other appliances are unchanged. ??Mild gaseous distention of the stomach. ??No gas is seen distally. ??Mi ld granular infiltrates throughout both lungs are unchanged. Electronically signed by: ?? John ??Khanh MICHAEL ??[id number] 13:29 Procedure Note Kaye Cassidy M.D. - 09/06/2017Form atting of this note might be different from the original. 1998 13:02:00 Exam: Peds - Chest Abdomen Indications: RESP. DISTRESS ORIGINAL REPORT - 1998 13:29:00 Since earlier today the ETT has pulled b ack and tip is at the C6 level and should be advanced. Other appliances are unchanged. Mild gaseous distention of the stomach. No gas is seen distally. Mild granular infiltrates throughout both lungs are un changed. Electronically signed by: John Cassidy MD [phone] 13:2 9 Robert Nick M.D. IMG DIAGNOSTIC IMAGING PROCE DURES DX Infant Chest and Abdomen Portable 1 View (1998 8:16 AM CDT) Anatomical Region Laterality Modality Chest, Abdomen N/A Radiographic Imaging Specimen (Source) Anatomical Collection Method Collection Time Re ceived Time Location / / Volume Laterality 1998 8:16 AM CDT Narrative 1998 8:21 AM CDT 1998 08:16:00 ??Exam: Peds - Chest Abdomen Indications: TUBE PLACEMENT ORIGINAL REPORT - 1998 08:21:00 ETT tip at the cervicothoracic junction and could be advanced about 1 cm. ??OG tube. ??UVC tip just above the right hemidiaphragm. UAC tip at L3. Granular changes consistent with RDS similar to our exam of 98 at 11:33PM. Heart size kirk l. ??There is gas in the stomach and little seen beyond this. Electronically signed by: ?? Chris Vega ??[id number] 08:21 Procedure Note Paolo Vega M.D. - 09/06/2017Format ting of this note might be different from the original. 1998 08:16:00 Exam: Peds - Chest Abdomen Indications: TUBE PLACEMENT ORIGINAL REPORT - 1998 08:21:00 ETT tip at the cervicothoracic junction and could be advanced about 1 cm. OG tube. UVC tip just above the right hemidiaphragm. UAC tip at L3. Granular changes consistent with RDS similar to our exam of 98 at 11:33PM. Heart size normal. There is gas in the stomach and little seen beyond this. Electronically signed by: Chris Vega [phone] 08:21 Clinton Luna M.D. IM[facility] DIAGNOSTIC IMAGING PROCE [facility] DX Infant Chest and Abdomen Portable 1 View (1998 11:37 PM CDT) Anatomical Region Laterality Modality Chest, Abdomen N/A Radiographic Imaging Specimen (Source) Anatomical Collection Method Collection Time Re ceived Time Location / / Volume Laterality 1998 11:37 PM CDT Narrative 1998 6:13 AM CDT 1998 23:37:00 ??Exam: Peds - Chest Abdomen Indications: R/O PNEUMOTHORAX, RECENT CA RDIAC COMPRESSIONS ORIGINAL REPORT - 1998 23:46:00 ETT at thoracic inlet. OG tube projected over stomach. UVC projest over RA. UAC overlies L3. Diffuse granlular infiltrates both lungs worse in the upper lungs. No pneumothorax. Small amount of gas in the stomach and mid bowel. Electronically signed by: ?? [facility] [place] ??[phone] [id number]) 1998 23:46 I have reviewed the films/images and agr ee with the above interpretation. Electronically signed by: ?? John ??Khanh MICHAEL ??[phone] 06:13 Procedure Note Kaye Cassidy M.D. - 09/06/2017Form atting of this note might be different from the original. 1998 23:37:00 Exam: Peds - Chest Abdomen Indications: R/O PNEUMOTHORAX, RECENT CA RDIAC COMPRESSIONS ORIGINAL REPORT - 1998 23:46:00 ETT at thoracic inlet. OG tube projected over stomach. UVC projest over RA. UAC overlies L3. Diffuse granlular infiltrates both lungs worse in the upper lungs. No pneumothorax. Small amount of gas in the stomach and mid bowel. Electronically signed by: Jermaine Gamino [phone] ([id number]) 1998 2 3:46 I have reviewed the films/images and agr ee with the above interpretation. Electronically signed by: John Cassidy MD [phone] 06:1 3 Clinton GONZALEZ DIAGNOSTIC IMAGING PROCE DURES documented in this encounter Visit Diagnoses Not on filedocumented in this encounter
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
--- OUTSIDE RECORDS SUMMARY | 2022-01-23 12:50 | XMS_ITS | Encounter Summary ---
:2000 Author Organization [facility] Address [address] [place] [address] Care Team Providers Name Role Phone Unavailable Primary Care Provider Unavailable Encounter Details Date Type Department Care Team Description 10/09/2016 Hospital Encounter HX NO MAPPING Casper Payan P.A.-C. [address] [place] [phone] (Wo rk) Social History Tobacco Use [...] 08/02/2020 relatives? How often do you attend mandaen or hoahaoism 1 to 4 times per year 08/02/2020 services? Do you belong to any clubs or organizations such No 08/02/2020 as mandaen groups, unions, fraternal or athletic groups, or [...] Miscellaneous - Conversion, Historical Provider Ser - 10/09/2016 11:59 PM CDT Coding Summary-Paper Based CODING DATE: 10/20/2016 FINAL [facility] STATUS: * Discharged to Home or Self Care PAYOR: [employer] ADMIT DX: REASON FOR VISIT DX: FINAL DX: PRINCIPAL: J02.9 Acute pharyngitis, unspecified SECONDARY: PROCEDURES DOCTOR NAME DATE NOTE: The code number assigned matches the documented diagnosis and / or procedure in the patient's chart. However, the narrative phrase printed from the coding software may appear abbreviated, or result in slightly different terminology. Coded By: RADHA HOLLY Date Saved: 10/20/2016 01:24 pm [facility] Document Id: [id number] documented in this encounter Plan of Treatment Not on filedocumented as of this encounter Visit Diagnoses Not on filedocumented in this encounter
--- OUTSIDE RECORDS SUMMARY | 2022-01-23 12:50 | XMS_ITS | Encounter Summary ---
:2000 Author Organization [facility] Address [address] [place] [address] Care Team Providers Name Role Phone Unavailable Primary Care Provider Unavailable Encounter Details Date Type Department Care Team Description 02/18/2011 Hospital Encounter HX [facility] Elmo Kitchen, BEL, C.N.P., D. N.P. [address] [place], [place] [address] (Wo rk) Social History [...] 08/02/2020 relatives? How often do you attend mosque or lutheran 1 to 4 times per year 08/02/2020 services? Do you belong to any clubs or organizations such No 08/02/2020 as mosque groups, unions, fraternal or athletic groups, or [...]
--- NOTE | 2022-01-23 13:00 | CRLHL7_ITS ---
For Patients: As a result of the 21st Century Cures Act, medical imaging exams and procedure reports are released immediately into your electronic medical record. You may view this report before your referring provider. If you have questions, please contact your health care provider. INDICATION: Third trimester scan, evaluate growth. f/u growth hx of COVID COMPARISON: 08/13/2021 TECHNIQUE: Real time rendon scale imaging of the fetus was performed. FINDINGS: Sonographic imaging demonstrates a single living intrauterine gestation. Fetus demonstrates a regular cardiac rate of 139 beats per minute. Fetus has a vertex position. The placenta lies anteriorly. Amniotic fluid volume appears normal and there is a BPD 56th percentile. HC 89th percentile. AC 66th percentile. FL the 60th percentile. The HC/AC ratio measures 1.09 range (0.95-1.11). IMPRESSION: Sonographic gestational age 33 weeks 6 days and sonographic due date 03/07/2022. Sonographic age 9 days ahead of the clinical age. Estimated weight 68th percentile. Abdominal circumference 66th percentile. Dictated by Ruben Williamson MD @ 01/23/2022 1:56:23 PM (Electronically Signed)
== END 2022-01-23 12:47 | disposition home or self-care (01) ==
LOC: US 12:47
PROVIDERS: Visit Provider Advanced Practice Midwife
DX: O98.513 Other viral diseases complicating pregnancy, third trimester (principal); Z3A.33 33 weeks gestation of pregnancy
CPT/HCPCS: 76816

== ENCOUNTER 2022-02-18 07:23 | Outpatient (CLI) | payer OTHER, SELFPAY ==
--- NOTE | 2022-02-18 07:15 | CRLHL7_ITS ---
For Patients: As a result of the Century Cures Act, medical imaging exams and procedure reports are released immediately into your electronic medical record. You may view this report before your referring provider. If you have questions, please contact your health care provider. INDICATION: Third trimester scan, evaluate growth. Gestational diabetes. COMPARISON: 01/23/2022 TECHNIQUE: Real time rendon scale imaging of the fetus was performed. FINDINGS: Sonographic imaging demonstrates a single living intrauterine gestation. Fetus demonstrates a regular cardiac rate of 133 beats per minute. Fetus has a vertex position. The placenta lies anteriorly. Amniotic fluid volume appears normal and there is a single deepest vertical pocket: 5.8 cm. The estimated weight is 3183gm which lies at the 80th %. On the prior OB ultrasound exam dated 01/23/2022 the estimated weight was at the 66th%. BPD 78th. HC 72nd. AC 94th. FL 28th. The HC/AC ratio measures 0.98 range (0.91-1.05). Normal gross body movements and tone. No respiratory activity. IMPRESSION: Sonographic gestational age 37 weeks 2 days and sonographic due date 03/09/2022. Sonographic age is 1 week out of the clinical age. Estimated weight 80th percentile. Abdominal circumference 94th percentile. Biophysical profile 11/05. No respiratory activity observed. Dictated by Ruben Williamson MD @ 02/18/2022 9:58:27 AM (Electronically Signed)
--- OUTSIDE RECORDS SUMMARY | 2022-02-18 07:27 | XMS_ITS | Encounter Summary ---
:2000 Author Organization [facility] Address [address] [place] [address] Care Team Providers Name Role Phone Chaparro Payan P.A.-C. Primary Care Provider [phone] Reason for Visit Reason Comments COVID Inquiry Encounter Details Date Type Department Care Team Description 07/12/2020 Clinical Communication Department of KATHIE [facility]ane [facility], [address] [address] [place], [place] [phone] (Work) [phone] Social History Tobacco Use Types Packs/Day Years [...] 08/02/2020 relatives? How often do you attend voodoo or restorationist 1 to 4 times per year 08/02/2020 services? Do you belong to any clubs or organizations such No 08/02/2020 as voodoo groups, unions, fraternal or athletic groups, or [...] LABORATORY CONFIRMED case ofCOVID-19?: Yes exposure noted. [place] patient, instruct to quarantine, testing indicated (End Screening) Testing Recommendation Endpoint Is testing recommended? : Recommended to test Plan: Endpoint recommendation: Testing indicated, advised to be swabbed for COVID-19 Only , sent to [facility] located at [address] [place] [address]. The entrance is on the north side of the building. You must call [phone] during the hours of 7am to 6 [...] sending patient for testing in T or [facility], route encounter to the correct testing pool. UTING CONSULTANT documented in this encounter Plan of Treatment Not on filedocumented as of this encounter Visit Diagnoses Not on filedocumented in this encounter Additional Health Concerns Assessment Noted Time PHQ-9 Depression Total Score: 8 10/13/2017 12:58 PM CD T documented as of this encounter Care Teams Local Company Flatbed Truck Driver Relationship Specialty Start Date End Date Chaparro Payan P.A.-C. PCP - General 02/05/[address] [place] [phone] documented as of this encounter
--- OUTSIDE RECORDS SUMMARY | 2022-02-18 07:27 | XMS_ITS | Encounter Summary ---
:1998 Author Organization [facility] Address [address] [place] [address] Care Team Providers Name Role Phone Chaparro Payan P.A.-C. Primary Care Provider [phone] Reason for Visit Reason Onset Date Comments Outpatient COVID-19 Testing 07/12/2020 Encounter Details Date Type Department Care Team Description 07/12/2020 External Outreach Department of Family Wood Guzman Contact With And Medicine, [facility] Abdulkadir Winter D.O. (Suspected) Exposure Building, in [address] To COVID-19 (Primary [place], [place] Dx) [address] [facility] [address] [place], [place] [phone] (Work) [phone] Social History Tobacco Use Types Packs/Day Years [...] 08/02/2020 relatives? How often do you attend cheondoism or anabaptist 1 to 4 times per year 08/02/2020 services? Do you belong to any clubs or organizations such No 08/02/2020 as cheondoism groups, unions, fraternal or athletic groups, or [...] PM CST Encounter created for COVID-19 screening. TROPLATING WORKER documented in this encounter Plan of Treatment Not on filedocumented as of this encounter Procedures Procedure Name Priority Date/Time Associated Diagnosis Comme nts SARS CORONAVIRUS-2 Routine 07/12/2020 4:07 PM Contact With And Results for this RNA, V ELECTROPLATING WORKER (Suspected) Exposure procedu re are in To COVID-19 the results section. documented in this encounter Results SARS Coronavirus-2 RNA, V Asymptomatic (07/12/2020 4:07 PM ELECTROPLATING WORKER) [facility] Method Time Signature SARS-CoV-2 Swab, 07/13/2020 [facility] Specimen Nasopharynx 1:56 AM ELECTROPLATING WORKER Source SARS CoV-2 Undetected Undetected 07/13/2020 [facility] RNA, TMA 1:56 AM ELECTROPLATING WORKER Comment: SARS-CoV-2 RNA absent. This result does not rule out COVID-19 in the patient, as the sensitivity of the test depends o n the timing of the specimen collection and the quality of the specim en. Result should be correlated with patient's history and clinical presentat ion. ----ADDITIONAL INFORMATION---- This molecular amplification test was pe rformed using the Aptima SARS-CoV-2 assay ([employer] on the Spectraseiss tem under emergency use authorization (EUA) by the U.S. Food and Drug Administ ration. Fact sheets for this EUA assay can be fo und at the following links: For Healthcare Providers: https://www.fd a.gov/media/763347/download For Patients: https://www.fda.gov/media/ 504821/download Specimen Anatomical Collection Method Collection Time Receive d Time (Source) Location / / Volume Laterality Varies 07/12/2020 4:07 PM 02/12/202 1 8:44 (Nasopharynx) ELECTROPLATING WORKER PM ELECTROPLATING WORKER Wood Guzman D.O. LAB MICROBIOLOGY - GENERAL O JIMMY Performing Organization Address City/State/ZIP Code Phon e Number [facility]- [address] [place] [phone] [place] [address] [place] [address] [address] documented in this encounter Visit Diagnoses Diagnosis Contact With And (Suspected) Exposure To COVID-19 - Primary documented in this encounter Additional Health Concerns Infection Onset Date Last Indicated Resolved Time COVID19 Pending 07/12/2020 07/12/2020 07/13/2020 1:56 AM ELECTROPLATING WORKER Assessment Noted Time PHQ-9 Depression Total Score: 8 10/13/2017 12:58 PM CD T documented as of this encounter Care Teams Radio Interference Supervisor Relationship Specialty Start Date End Date Chaparro Payan P.A.-C. PCP - General 02/05/[address] [place] [phone] documented as of this encounter
--- OUTSIDE RECORDS SUMMARY | 2022-02-18 07:27 | XMS_ITS | Encounter Summary ---
:1998 Author Organization [facility] Address [address] [place] [address] Care Team Providers Name Role Phone Chaparro Payan P.A.-C. Primary Care Provider [phone] Reason for Referral Outpatient (Routine) - Closed Specialty Diagnoses / Procedures Referred By Contact Refer red To Contact Diagnoses Bicuspid Aortic Valve (HCC) Americo Bear M.D. [facility] Procedures Echo Transthoracic (TTE) - Adult Congenital [address] [place], [place] [phone] Referral ID Status Reason Start Date Expiration Date Visits Requ ested Visits Authorized [id number] Closed 09/11/2021 09/11/2022 1 1 Reason for Visit Outpatient (Routine) - Closed Specialty Diagnoses / Procedures Referred By Contact Refer red To Contact Diagnoses Bicuspid Aortic Valve (HCC) Americo Bear M.D. [facility] Procedures Echo Transthoracic (TTE) - Adult Congenital [address] [place], [place] [address] Referral ID Status Reason Start Date Expiration Date Visits Requ ested Visits Authorized [id number] Closed 09/11/2021 09/11/2022 1 1 Encounter Details Date Type Department Care Team Description 09/16/2021 Hospital Encounter Department of Americo Bear Bicuspi d Aortic Cardiovascular Diseases Silvio Valve (HCC) in [facility] marya [address] [facility] [address] [place] [phone] Social History Tobacco Use Types Packs/Day Years [...] How often do you attend quaker or orthodox 1 to 4 times per year 08/02/2020 [...] mg tablet Take 1 tablet by 0 [id number] (VINATE mouth daily. ONE) 60 mg iron-1 [...] COLOR AND DOPPLER (09/16/2021 1:54 PM CDT) [facility] Method Time Signature Ejection Fraction 64 [...] For the complete report, see the Order-L Soflow Documents. Final Impressions 1. Bicuspid aortic valve [...] documented as of this encounter Care Teams Software Trainer Relationship Specialty Start Date End Date Chaparro Payan P.A.-C. PCP - General 02/05/[address] [place] [phone] documented as of this encounter
--- OUTSIDE RECORDS SUMMARY | 2022-02-18 07:27 | XMS_ITS | Encounter Summary ---
:[address] [facility] Address [address] [place] [address] Care Team Providers Name Role Phone Chaparro Payan P.A.-C. Primary Care Provider [phone] Reason for Referral Specialty Diagnoses / Procedures Referred By Contact Refer red To Contact Chaparro Payan P. A.-C. [facility] [address] [place] [address] Referral ID Status Reason Start Date Expiration Date Visits Requ ested Visits Authorized YZER SALES Encounter Details Date Type Department Care Team Description 07/30/2021 Orders Only [facility] PCP [facility] Chaparro Payan P.A.-C. [address] [place] [phone] (Wo rk) Social History Tobacco [...] How often do you attend gnosticist or restorationism 1 to 4 times per [...] documented as of this encounter Care Teams Info Specialist Relationship Specialty Start Date End Date Chaparro Payan P.A.-C. PCP - General 02/05/[address] [place] [phone] documented as of this encounter
--- OUTSIDE RECORDS SUMMARY | 2022-02-18 07:27 | XMS_ITS | Encounter Summary ---
:1998 Author Organization [facility] Address [address] [place] [address] Care Team Providers Name Role Phone Chaparro Payan P.A.-C. Primary Care Provider [phone] Encounter Details Date Type Department Care Team Description 02/28/2021 Immunization Department of [facility] Reed Barillas For COVID-19 Medicine, Chandrakant Walls M.D. Vaccine Immunization Clinic, in [address] [address] [place], [place] [phone] (Work) [phone] Social History Tobacco Use Types Packs/Day Years [...] How often do you attend jewish or christian 1 to 4 times per year 08/02/2020 [...] documented as of this encounter Care Teams Refrigeration Tech Relationship Specialty Start Date End Date Chaparro Payan P.A.-C. PCP - General 02/05/[address] [place] [phone] documented as of this encounter
--- OUTSIDE RECORDS SUMMARY | 2022-02-18 07:27 | XMS_ITS | Clinical Summary ---
:1998 Author Organization [facility] [place] [address] Care Team Providers Name Role Phone Chaparro Payan Primary Care Provider Allergies Active Allergy Reactions Severity Noted Date Comments Penicillins *Unknown Low 06/07/2015 Medications No known medications Active Problems Problem Noted Date Bicuspid aortic valve 09/05/2018 Overview: bicuspid aortic valve. She has no associ ated aortopathy. The bicuspid valve is functioning normally without any stenosis and with only trivial aortic valve regurgitation. 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 Follow up [facility] Estimated Date of Delivery Comments Yes 03/16/2022 Immunizations Name Administration Dates Next Due DTaP 02/03/2011, 01/08/2003, 06/17/2000, 09/05/1999, 07/08/1999, 02/04/1999 HIB PRP-T (ActHIB,Hiberix) 09/29/2000, 06/17/2000 HIB-HepB (Comvax) 06/17/2000, 07/08/1999, 02/04/1999 Hepatitis A (Peds) 12/15/2002, 07/15/2001 Hepatitis A, Unspecified 12/15/2002, 07/15/2001 Hepatitis B, Unspecified 06/17/2000 Human Papilloma Virus Vaccine 08/16/2008, 03/27/2008, 2007 Inactivated Polio Vaccine 01/08/2003, 09/05/1999, 07/08/1999 , 02/04/1999 Influenza Virus, Unspecified 04/30/2015, 03/14/2011 Influenza, IIV3 (Age >=3 years) 03/11/2010 Influenza, IIV4 01/24/2013, 03/27/2008 MMR 01/08/2003, 12/08/1999 Meningococcal Vaccine (Menactra) 04/30/2015, 01/30/2011 Pneumococcal conj 7-Valent (Prevnar 7) 09/29/2000, 1 Tdap 02/18/2011, 02/03/2011 Tdap, Unspecified 01/08/2003, 06/17/2000, 09/05/1999, 07/08/1999, 02/04/1999 Varicella Vaccine 11/01/2007, 12/08/1999 Social History Tobacco Use Types Packs/Day Years Used Date Former Smoker Smokeless Tobacco: Never Used Tobacco Cessation: Counseling Given: Yes Comments: random smoker Alcohol Use Standard Drinks/Week Comments Not Currently 2 (1 standard drink = 0.6 oz pure alcoho l) Rare/special occassions Alcohol Habits Answer Date Recorded How often do you have a drink containing Not asked alcohol? How many drinks containing alcohol do you have Not asked on a typical day when you are drinking? How often do you have six or more drinks on Not asked one occasion? Comment: Rare/special occassions 09/24/2017 Estimated Date of Delivery Comments Yes 03/16/2022 Sex Assigned at Date Recorded Not on file Obstetrics History Para Term AB IAB SAB Ectopic Multiple Living Live Births 1 Date Outcome GA Total Labor/2nd/3rd Weight Sex Delivery Anes PTL Joycelyn A 1 A5 Name Clin Labor Current Last Filed Vital Signs Vital Sign Reading Time Taken Comments Blood Pressure 114/66 11/09/2021 3:58 PM CDT Pulse 96 11/09/2021 3:58 PM CDT Temperature 36.9 ??C (98.5 ??F) 11/09/2021 3:58 PM CDT Respiratory Rate 20 11/09/2021 3:58 PM CDT Oxygen Saturation 97% 11/09/2021 3:58 PM CDT Inhaled Oxygen Concentration - - Weight 87.9 kg (193 lb 11.2 oz) 11/09/2021 3:58 PM CDT Height 157.5 cm (5' 2) 07/26/2020 1:58 AM BILINGUAL TEACHER ASSISTANT Body Mass Index 35.43 07/26/2020 1:58 AM BILINGUAL TEACHER ASSISTANT Plan of Treatment Health Maintenance Due Date Last Done Comments Chlamydia for age 16-24 2014 Hepatitis C screening for age 0712/11/2016 18-79 Pap test for age 21-65 12/12/2019 Depression screening for age 12+ 08/13/2020 08/14/2019, 12/2018 BMI (ht and wt on same day) for 09/03/2020 09/04/2019, 07/29, age 18+ 09/05/2018 Tetanus booster 02/18/2021 02/18/2011, 02/03/2011, 01/08/2003, Additional history exists COVID-19 vaccine series (3 - 07/29/2021 02/28/2021, 021 Booster for Pfizer series) Influenza for age 9-49 01/29/2022 04/30/2015, 01/24/2013, 03/14/2011, Additional history exists HPV series for age 9-26 Completed 08/16/2008, 03/27/2008, 12/19/2007 Tdap Completed 02/18/2011, 02/03/2011, 01/08/2003, Additional history exists Results Not on filefrom Last 3 Months Insurance Payer Benefit Plan / Subscriber ID Effective Dates Phone Addre ss Type Group BLUE CROSS BLUE CROSS OF [id number] 2015-Present [address] [place] [address] PREFERRED ONE PREFERRED ONE [id number] 2019-Present [address] [place] [address] [phone] [address] [employer] [place] [address] (Home) [place] [id number] [address] Personal/Famil Mother [phone] (Home) [address] [place] [phone] [employer] Occ Employer 05/31/2000 [phone] [address] [employer] 4 [phone] (Home) [place] [id number] [employer] Occ Employer 04/10/1911 [phone] ATTN H [employer] [id number] RESOURCES (Home) [address] [place] [address] [phone] [address] (Work) [place] MELVIN [phone] Care Teams Hr Business Partner Consultant Relationship Specialty Start Date End Date Chaparro Payan PA PCP - General 09/24/[address] [place] [address] [place] [phone]
--- OUTSIDE RECORDS SUMMARY | 2022-02-18 07:27 | XMS_ITS | Encounter Summary ---
:1998 Author Organization [facility] Address [address] [place] [address] Care Team Providers Name Role Phone Chaparro Payan P.A.-C. Primary Care Provider [phone] Encounter Details Date Type Department Care Team Description 06/23/2020 Admin Visit Department of Family Medicine, [address] [address] [facility] [phone] Social History Tobacco Use Types Packs/Day Years [...] 08/02/2020 relatives? How often do you attend scientologist or episcopal 1 to 4 times per year 08/02/2020 services? Do you belong to any clubs or organizations such No 08/02/2020 as scientologist groups, unions, fraternal or athletic groups, or [...] COVID19 Pending 06/23/2020 06/23/2020 06/24/2020 2:18 PM HAND TAPPER Assessment Noted Time PHQ-9 Depression Total Score: 8 10/13/2017 12:58 PM CD T documented as of this encounter Care Teams Mail Agent Relationship Specialty Start Date End Date Chaparro Payan P.A.-C. PCP - General 02/05/[address] [place] [phone] documented as of this encounter
--- OUTSIDE RECORDS SUMMARY | 2022-02-18 07:27 | XMS_ITS | Encounter Summary ---
:1998 Author Organization [facility] Address [address] [place] [address] Care Team Providers Name Role Phone Chaparro Payan P.A.-C. Primary Care Provider [phone] Reason for Referral Outpatient (Routine) - Closed Specialty Diagnoses / Procedures Referred By Contact Refer red To Contact Family Medicine Chaparro Payan P. A.-C. [address] [phone] Referral ID Status Reason Start Date Expiration Date Visits Requ ested Visits Authorized [id number] Closed 08/02/2020 08/02/2021 1 1 CTOR CHECK Reason for Visit Reason Comments Annual Exam No concerns at this time. Appointment Request (Routine) - Closed Specialty Diagnoses / Procedures Referred By Contact Refer red To Contact Family Medicine Referral ID Status Reason Start Date Expiration Date Visits Requ ested Visits Authorized [id number] Closed 07/26/2020 07/26/2021 1 1 Encounter Details Date Type Department Care Team Description 08/02/2020 Comprehensive Visit Department of Shadia Payan Aortic Valve (HCC) (Primary Dx); Chaparro Rock P.A.-C. General Medical Examination Adult; [facility], [address] [place] [address] Pap Smear Examination; in [place], [place] Screening For Venereal Disease; [place] [address] [phone] [place], [place] (Work) [phone] Social History Tobacco Use [...] 08/02/2020 relatives? How often do you attend muslim or catholic 1 to 4 times per year 08/02/2020 services? Do you belong to any clubs or organizations such No 08/02/2020 as muslim groups, unions, fraternal or athletic groups, or [...] Comments Blood Pressure 98/64 08/02/2020 2:23 PM DIRECTOR CHECK Pulse 84 08/02/2020 2:23 PM DIRECTOR CHECK Temperature 36.9 ??C (98.4 ??F) 08/02/2020 2:23 PM DIRECTOR CHECK Respiratory Rate 16 08/02/2020 2:23 PM DIRECTOR CHECK Oxygen Saturation - - Inhaled Oxygen Concentration - - Weight 88.5 kg (195 lb 1.7 oz) 08/02/2020 2:23 PM DIRECTOR CHECK Height 161.1 cm (5' 3.43) 08/02/2020 2:23 PM DIRECTOR CHECK Body Mass Index 34.1 08/02/2020 2:23 PM DIRECTOR CHECK documented in this encounter H&P Notes Chaparro [...] at a later date. Chaparro Payan P.A.-C. CTOR CHECK documented in this encounter Plan of Treatment Scheduled Referrals Name Type Priority Associated Diagnoses Order S [facility] Medicine Outpatient Referral Routine Expec sonal: office visit 08/02/2020 (clinic) (Approximate), Expires: 08/03/2023 documented as of this encounter Procedures Procedure Name Priority Date/Time Associated Diagnosis Comme nts CHLAMYDIA/GONORRHOE Routine 08/02/2020 3:32 PM Pap Smear Re sults for this AE AMPLIFIED RNA DIRECTOR CHECK Examination procedure are in Screening For the results Venereal Disease section. THINPREP SCREEN Routine 08/02/2020 3:30 PM Pap Smear Result s for this DIRECTOR CHECK Examination procedure are in Screening For the results Venereal Disease section. documented in this encounter Results Chlamydia / Gonorrhoeae Amplified RNA (08/02/2020 3:32 PM DIRECTOR CHECK) Patholo gist Method Time Signature Source Thin Prep 08/07/2020 DTL Vial, 5:29 PM DIRECTOR CHECK Cervix/Endoc ervix Chlamydia Negative Negative 08/07/2020 DTL trachomatis 5:29 PM DIRECTOR CHECK amplified RNA Source Thin Prep 08/07/2020 DTL Vial, 5:29 PM DIRECTOR CHECK Cervix/Endoc ervix Neisseria Negative Negative 08/07/2020 DTL gonorrhoeae 5:29 PM DIRECTOR CHECK amplified RNA Specimen Anatomical Collection Method Collection Time Receive d Time (Source) Location / / Volume Laterality Varies 08/02/2020 3:32 PM (Cervix/Endocerv DIRECTOR CHECK 10:15 AM CS T ix) Chaparro Payan P.A.-C. LAB MICROBIOLOGY - GENERAL O RDERABLES Performing Organization Address City/State/ZIP Code Phon e Number [facility] - [address] [place] [phone] [facility] [place] [address] Laboratories-[facility] [address] [facility] ThinPrep Screen (08/02/2020 3:30 PM DIRECTOR CHECK) Component Value Ref Test Analysis Performed Pathologis [...] AM tives CDT Report BRIAN Ward(ASCP) 08/13/2020 [facility] electronically I verify that I have examined all relevant slides/ma terials 9:16 AM signed by for the specimen(s) and rendered or confirmed the diagnosis. CDT Interpretation Cervical/Endocervical ??(ThinPrep): 08/13/2020 [facility] Satisfactory for Evaluation 9:16 AM Negative for Intraepithelial Lesion or Malignancy CDT Specimen Anatomical Collection Method Collection Time Receive d Time (Source) Location / / Volume Laterality Varies 08/02/2020 3:30 PM 9:06 (Cervix/Endocerv DIRECTOR CHECK AM DIRECTOR CHECK ix) Narrative This result has an attachment that is no t available. Chaparro Payan P.A.-C. LAB PAP PATHDX ORDERABLES Performing Organization Address City/State/ZIP Code Phon e Number [facility] [address] [place] [address] [facility] [address] [place] [address] documented in this encounter Visit Diagnoses Diagnosis Bicuspid Aortic Valve (HCC) - Primary General Medical Examination Adult Pap Smear Examination Screening For Venereal Disease Nevus documented in this encounter Additional Health Concerns Assessment Noted Time PHQ-9 Depression Total Score: 8 10/13/2017 12:58 PM CD T documented as of this encounter Care Teams Cassandra Architect Relationship Specialty Start Date End Date Chaparro Payan P.A.-C. PCP - General 02/05/[address] [place] [phone] documented as of this encounter
--- OUTSIDE RECORDS SUMMARY | 2022-02-18 07:27 | XMS_ITS | Encounter Summary ---
:2000 Author Organization [facility] Address [address] [place] [address] Care Team Providers Name Role Phone Chaparro Payan P.A.-C. Primary Care Provider [phone] Encounter Details Date Type Department Care Team Description 09/16/2021 Hospital Encounter Department of Americo Bear [facility] Obstetrics and MJeronimo ([facility]) Gynecology in [address] [place] [address] [place] [phone] [place], [place] [phone] (Work) [phone] Social History Tobacco Use Types Packs/Day Years [...] How often do you attend gnosticist or adventist 1 to 4 times per [...] mg tablet Take 1 tablet by 0 umlcopy-Iu-uckv-FA (VINATE mouth daily. ONE) 60 mg iron-1 [...] FOLLOW-UP AND OR GROWTH ABEL Exam Site: [facility] OB #139 Plurality: 1 OBHx: [G:(1)] ?F [...] Read by Wing Willett on 8:30:37 AM. Epoxy Coatings Installer: ??Wing Willett Thank You For This Referral Procedure Note Yvonne Sanchez M.D. - 09/16/2021Forma tting of this note might be different from the original. CITLALY HOLLAND OB Exam, 09/16/2021 EXAM INFORMATION Patient Name: CITLALY HOLLAND : 2000 Age: 20 yrs Sex: Female Ref Phys: AMERICO BEAR Exam Date: 09/16/2021 Procedure: US OB FOLLOW-UP AND OR GROWTH ABEL Exam Site: [facility] OB #139 Plurality: 1 OBHx: [G:(1)] F [...] by Wing Willett on 022 8:30:37 AM. Epoxy Coatings Installer: Wing Willett Thank You For This Referral Americo Bear M.D. IMG OB US PROCEDURES documented in this encounter Visit Diagnoses Diagnosis High Risk (HCC) documented in this encounter Additional Health Concerns Assessment Noted Time PHQ-9 Depression Total Score: 8 10/13/2017 12:58 PM CD T documented as of this encounter Care Teams Set Up Person Relationship Specialty Start Date End Date Chaparro Payan P.A.-C. PCP - General 02/05/18 225 [place] [phone] documented as of this encounter
--- OUTSIDE RECORDS SUMMARY | 2022-02-18 07:27 | XMS_ITS | Encounter Summary ---
:2000 Author Organization [facility] Address [address] [place] [address] Care Team Providers Name Role Phone Chaparro Payan P.A.-C. Primary Care Provider [phone] Reason for Visit Reason Comments Missed phone Encounter Details Date Type Department Care Team Description 09/10/2021 Clinical Communication Department of Americo Bear Mis sed phone Obstetrics and M.D. Gynecology in [address] [place] [address] [place] [phone] [place], [place] [phone] (Work) [phone] Social History Tobacco Use Types Packs/Day Years [...] 08/02/2020 relatives? How often do you attend roman catholic or gnosticism 1 to 4 times per year 08/02/2020 services? Do you belong to any clubs or organizations such No 08/02/2020 as roman catholic groups, unions, fraternal or athletic groups, [...] / REASON FOR CALL Communication (Pre-visit intake) Civil Structural Designer: no INFORMATION DISCUSSED Patient contacted for chart [...] documented as of this encounter Care Teams Cone Classifier Tender Relationship Specialty Start Date End Date Chaparro Payan P.A.-C. PCP - General 02/05/[address] [place] [phone] documented as of this encounter
--- OUTSIDE RECORDS SUMMARY | 2022-02-18 07:27 | XMS_ITS | Encounter Summary ---
:2000 Author Organization [facility] Address [address] [place] [address] Care Team Providers Name Role Phone Chaparro Payan P.A.-C. Primary Care Provider [phone] Reason for Referral Outpatient (Routine) - Closed Specialty Diagnoses / Procedures Referred By Contact Refer red To Contact Diagnoses Bicuspid Aortic Valve (HCC) Americo Bear M.D. [facility] Procedures Echo Transthoracic (TTE) - Adult Congenital [address] [place] [phone] Referral ID Status Reason Start Date Expiration Date Visits Requ ested Visits Authorized [id number] Closed 09/11/2021 09/11/2022 1 1 Reason for Visit Appointment Request (Routine) - Authorized Specialty Diagnoses / Procedures Referred By Contact Refer red To Contact Maternal and Diagnoses Bicuspid Aortic Valve (HCC) Abnormal Ultrasound [facility] Sonya Gilliland.NGurdeep [address] [place] [address] Referral ID Status Reason Start Date Expiration Date Visits V isits Requested Authorized [id number] Authorized 08/25/2021 08/25/2022 3 3 Encounter Details Date Type Department Care Team Description 09/16/2021 Routine Department of Americo Bear Bicuspid Aortic Valve Obstetrics and Silvio (HCC) (Primary Dx) Gynecology in [address] [place], [place] [address] [place] [phone] [place], [place] [phone] (Work) [phone] Social History Tobacco Use Types Packs/Day Years [...] How often do you attend scientology or taoism 1 to 4 times per year 08/02/2020 [...] COLOR AND DOPPLER (09/16/2021 1:54 PM CDT) [facility] Method Time Signature Ejection Fraction 64 MC [...] aorta. 8. No ??pericardial effusion. Procedure Note Sraah Vega M.D. - 09/16/2021Form atting of this note might be different from the original. For the complete report, see the [employer] Documents. Final Impressions 1. Bicuspid aortic valve [...] documented as of this encounter Care Teams Networking Administrator Relationship Specialty Start Date End Date Chaparro Payan P.A.-C. PCP - General 02/05/[address] [place] [phone] documented as of this encounter
--- OUTSIDE RECORDS SUMMARY | 2022-02-18 07:27 | XMS_ITS | Clinical Summary ---
:2000 Author Organization [facility] Address [address] [place] [address] Care Team Providers Name Role Phone Chaparro Payan P.A.-C. Primary Care Provider [phone] Source Comments Patient records contain information from all sites at [facility]. For routine questions regarding patient records, call [phone] during business hours, M-F 8:00 AM - 5:00 PM Central Time. Record requests for emergency care only can be directed to [phone] at any time.[facility] Allergies Active Allergy Reactions Severity Noted Date Comments Penicillins Rash 12/19/2007 Medications Medication Sig Dispensed Refills Start Date End Date Status ibuprofen Take 800 mg by 0 Activ e (ADVIL,MOTRIN) 200 mg mouth. tablet albuterol 90 Inhale 2 puffs as 0 09/03/2021 Active mcg/actuation inhaler needed. Take 1 tablet by 0 Act navarro hgnmebg-Jk-gazd-FA mouth daily. (VINATE ONE) 60 mg iron-1 mg per tablet Active Problems Patient Care Coordination Note Formatting of this note might be differe nt from the original. Spouse: no Children: no Work: no AYAZ on file for mom Amy ([phone]) Problem Noted Date Overweight Body Mass Index [...] How often do you attend gnosticist or mosque 1 to 4 times per year 08/02/2020 [...] CDT Respiratory Rate 16 08/02/2020 2:23 PM AUTOMOTIVE PARTS PERSON Oxygen Saturation 100% 09/16/2021 8:36 AM CDT Inhaled Oxygen Concentration - - Weight 86.6 kg (190 lb 14.7 oz) 09/16/2021 8:36 AM CDT Height 160 cm (5' 2.99) 09/16/2021 8:36 AM CDT Body Mass Index 33.83 09/16/2021 8:36 AM CDT Plan of Treatment Health Maintenance Due Date Last Done Comments HIV Screening 2000 Hepatitis C Screening 2000 COVID-19 Vaccine (3 - 04/25/2021 02/28/2021, 02/07/2021 Booster for Pfizer series) Depression Screening 05/31/2021 (Annual PHQ-2) Chlamydia and Gonorrhea 08/02/2021 08/02/2020, 09/03/2017 Screening [...] Address T ype Group Dates PREFERREDONE PREFERREDONE [id number] 2019-Pre [phone] [address]OX PPO ADMINISTRATIVE ADMINISTRATIVE sent [phone] [place] [phone] Care Teams Senior Center Director Relationship Specialty Start Date End Date Chaparro Payan P.A.-C. PCP - General 02/05/18 [address] [place] [phone]
--- OUTSIDE RECORDS SUMMARY | 2022-02-18 07:27 | XMS_ITS | Encounter Summary ---
:2000 Author Organization [facility] Address [address] [place] [address] Care Team Providers Name Role Phone Chaparro Payan P.A.-C. Primary Care Provider [phone] Encounter Details Date Type Department Care Team Description 08/30/2020 Orders Only [facility] PCP [facility] Sa daina Buckley M.D. [address] [place], [place] [phone] (Wo rk) Social History [...] 08/02/2020 relatives? How often do you attend islam or orthodoxy 1 to 4 times per year 08/02/2020 services? Do you belong to any clubs or organizations such No 08/02/2020 as islam groups, unions, fraternal or athletic groups, or [...] documented as of this encounter Care Teams Bandoleer Packer Relationship Specialty Start Date End Date Chaparro Payan P.A.-C. PCP - General 02/05/[address] [place] [phone] documented as of this encounter
--- OUTSIDE RECORDS SUMMARY | 2022-02-18 07:27 | XMS_ITS | Encounter Summary ---
:2000 Author Organization [facility] Address [address] [place] [address] Care Team Providers Name Role Phone Chaparro Payan P.A.-C. Primary Care Provider [phone] Reason for Visit Reason Onset Date Comments Left Without Being Seen 09/16/2021 Appointment Request (Routine) - Authorized Specialty Diagnoses / Procedures Referred By Contact Refer red To Contact Maternal and Diagnoses Bicuspid Aortic Valve (HCC) Abnormal Ultrasound Jay Kebede, [facility] Audra GillilandNGurdeep [address] [place] [address] Referral ID Status Reason Start Date Expiration Date Visits V isits Requested Authorized [id number] Authorized 08/25/2021 08/25/2022 3 3 Encounter Details Date Type Department Care Team Description 09/16/2021 Comprehensive Visit Department of Shelbi Tse Proce dure And Obstetrics and M.S., CGC Treatment Not Gynecology in [address] [place] [address] Carried Out Due To [place], [place] Patient Leaving [address] [place] [phone] Prior To Being Seen [place], [place] [phone] By [facility] [phone] (Work) Provider (Primary [phone] Dx) (Fax) Social History Tobacco Use Types [...] 08/02/2020 relatives? How often do you attend hindu or shinto 1 to 4 times per year 08/02/2020 services? Do you belong to any clubs or organizations such No 08/02/2020 as hindu groups, unions, fraternal or athletic groups, or [...] as of this encounter Progress Notes Shelbi sTe M.S., REENA - 09/16/2021 11:00 AM CDT [...] documented as of this encounter Care Teams Hydro Generation Supervisor Relationship Specialty Start Date End Date Chaparro Payan P.A.-C. PCP - General 02/05/[address] [place] [phone] documented as of this encounter
--- OUTSIDE RECORDS SUMMARY | 2022-02-18 07:27 | XMS_ITS | Encounter Summary ---
:2000 Author Organization [facility] Address [address] [place] [address] Care Team Providers Name Role Phone Chaparro Payan P.A.-C. Primary Care Provider [phone] Reason for Visit Reason Comments COVID Inquiry Encounter Details Date Type Department Care Team Description 06/23/2020 Clinical Communication [facility] [place] [facility] Inquiry Cardiovascular Surgery Provider in [place], [place] [address] [place] [phone] Social History Tobacco Use Types [...] 08/02/2020 relatives? How often do you attend spiritism or jewish 1 to 4 times per year 08/02/2020 services? Do you belong to any clubs or organizations such No 08/02/2020 as spiritism groups, unions, fraternal or athletic groups, or [...] LABORATORY CONFIRMED case ofCOVID-19?: Yes exposure noted. [place] patient, instruct to quarantine, testing indicated (End Screening) Testing Recommendation Endpoint Is testing recommended? : Recommended to test Plan: Endpoint recommendation: Testing indicated, advised to be swabbed for COVID-19 Only , sent to [facility] located at [address] [place] [address]. The entrance is on the north side of the building. You must call [phone] for an appointment time.Testing hours are Daily [...] sending patient for testing in [facility] or [facility], route encounter to the correct testing pool. TRONIC GAME DEVELOPER documented in this encounter Plan of Treatment Not on filedocumented as of this encounter Visit Diagnoses Not on filedocumented in this encounter Additional Health Concerns Infection Onset Date Last Indicated Resolved Time COVID19 Pending 06/23/2020 06/23/2020 06/24/2020 2:18 PM ELECTRONIC GAME DEVELOPER Assessment Noted Time PHQ-9 Depression Total Score: 8 10/13/2017 12:58 PM CD T documented as of this encounter Care Teams Etl Tester Relationship Specialty Start Date End Date Chaparro Payan P.A.-C. PCP - General 02/05/[address] [place] [phone] documented as of this encounter
--- OUTSIDE RECORDS SUMMARY | 2022-02-18 07:27 | XMS_ITS | Encounter Summary ---
:2000 Author Organization [facility] Address [address] [place] [address] Care Team Providers Name Role Phone Chaparro Payan P.A.-C. Primary Care Provider [phone] Reason for Referral Outpatient (Routine) - Closed Specialty Diagnoses / Procedures Referred By Contact Refer red To Contact Diagnoses Lesion Skin Chest Chaparro Payan P.A.-C. Procedures Lesion Excision and Closure [address] [place] [phone] Referral ID Status Reason Start Date Expiration Date Visits Requ ested Visits Authorized [id number] Closed 08/12/2020 08/12/2021 1 1 Reason for Visit Reason Comments Suspicious Skin Lesion R upper breast mole removal Outpatient (Routine) - Closed Specialty Diagnoses / Procedures Referred By Contact Refer red To Contact Family Medicine Chaparro Payan P. A.-C. [facility] [address] [place] [phone] Referral ID Status Reason Start Date Expiration Date Visits Requ ested Visits Authorized [id number] Closed 08/02/2020 08/02/2021 1 1 Encounter Details Date Type Department Care Team Description 08/12/2020 Office Visit Department of Family Chaparro Payan Le sion Skin Chest Medicine [facility] (Primary Dx) [facility], in [address] [phone] [place] [phone] (Work) [phone] Social History Tobacco Use Types Packs/Day Years [...] How often do you attend hindu or judaism 1 to 4 times per year 08/02/2020 [...] Component Value Ref Test Analysis Performed At [facility] Range Method Time Signature 08/14/2020 JULIO 11:27 [...] 0.1 cm light mcknight skin punch. ESBMandy. [facility] [place] Interpretation FINAL DIAGNOSIS 08/14/2020 MKTO A. Skin, [...] LAB SURG PATH ORDERABLES Performing Organization Address [facility]/State/ZIP Code Phon e Number [facility]- [address] [place] [address] [place] [address] System in [address] Lesion Excision and Closure (08/12/2020 11:00 [...] documented as of this encounter Care Teams Cookie Padder Relationship Specialty Start Date End Date Chaparro Payan P.A.-C. PCP - General 02/05/18 [address] [place] [phone] documented as of this encounter
--- OUTSIDE RECORDS SUMMARY | 2022-02-18 07:27 | XMS_ITS | Encounter Summary ---
:2000 Author Organization [facility] Address [address] [place] [address] Care Team Providers Name Role Phone Chaparro Payan P.A.-C. Primary Care Provider [phone] Encounter Details Date Type Department Care Team Description 08/25/2021 Orders Only Department of Mónica Noe High Risk Obstetrics and J, R.N. (Primary Dx) Gynecology in [address] [place] [address] [place] [phone] [place], [place] [phone] (Work) [phone] Social History Tobacco Use Types Packs/Day Years [...] 08/02/2020 relatives? How often do you attend latter day or confucianism 1 to 4 times per year 08/02/2020 services? Do you belong to any clubs or organizations such No 08/02/2020 as latter day groups, unions, fraternal or athletic groups, or [...] FOLLOW-UP AND OR GROWTH ABEL Exam Site: [facility] OB #139 Plurality: 1 OBHx: [G:(1)] [...] Read by Wing Willett on 8:30:37 AM. Printing Shop Supervisor: ??Wing Willett Thank You For This Referral Procedure Note Yvonne Sanchez M.D. - 09/16/2021Forma tting of this note might be different from the original. CITLALY HOLLAND OB Exam, 09/16/2021 EXAM INFORMATION Patient Name: CITLALY HOLLAND : 2000 Age: 20 yrs Sex: Female Ref Phys: AMERCIO BEAR Exam Date: 09/16/2021 Procedure: US OB FOLLOW-UP AND OR GROWTH ABEL Exam Site: [facility] OB #139 Plurality: 1 OBHx: [G:(1)] [...] Read by Wing Willett on 8:30:37 AM. Printing Shop Supervisor: Wing Willett Thank You For This Referral Americo Bear M.D. IMG OB US PROCEDURES documented in this encounter Visit Diagnoses Diagnosis High Risk (HCC) - Primary High Risk (HCC) documented in this encounter Additional Health Concerns Assessment Noted Time PHQ-9 Depression Total Score: 8 10/13/2017 12:58 PM CD T documented as of this encounter Care Teams Scouring Pads Supervisor Relationship Specialty Start Date End Date Chaparro Payan P.A.-C. PCP - General 02/05/[address] [place] [phone] documented as of this encounter
--- OUTSIDE RECORDS SUMMARY | 2022-02-18 07:27 | XMS_ITS | Encounter Summary ---
:2000 Author Organization [facility] Address [address] [place] [address] Care Team Providers Name Role Phone Chaparro Payan P.A.-C. Primary Care Provider [phone] Reason for Referral Specialty Diagnoses / Procedures Referred By Contact Refer red To Contact [facility] [place] Cli winnie [facility] Region [address] [place] [address] Referral ID Status Reason Start Date Expiration Date Visits Requ ested Visits Authorized Reason for Visit Appointment Request (Routine) - Closed Specialty Diagnoses / Procedures Referred By Contact Refer red To Contact Family Medicine Referral ID Status Reason Start Date Expiration Date Visits Requ ested Visits Authorized [id number] Closed 01/29/2021 01/29/2022 1 1 Encounter Details Date Type Department Care Team Description 02/07/2021 Immunization Department of [facility] er For COVID-19 Medicine, [facility] Vaccine I mmunization Clinic, in [facility] (Primar y Dx) [place] [address] [place] [phone] Social History Tobacco Use Types Packs/Day [...] How often do you attend nondenominational or religion 1 to 4 times per year 08/02/2020 [...] documented as of this encounter Care Teams Geotechnical Field Technician Relationship Specialty Start Date End Date Chaparro Payan P.A.-C. PCP - General 02/05/[address] [place] [phone] documented as of this encounter
--- OUTSIDE RECORDS SUMMARY | 2022-02-18 07:27 | XMS_ITS | Encounter Summary ---
:2000 Author Organization [facility] Address [address] [place] [address] Care Team Providers Name Role Phone Chaparro Payan P.A.-C. Primary Care Provider [phone] Encounter Details Date Type Department Care Team Description 07/12/2020 Admin Visit Department of Family Medicine, [address] [address] [facility] [phone] Social History Tobacco Use Types Packs/Day Years [...] How often do you attend confucianism or protestant 1 to 4 times per [...] COVID19 Pending 07/12/2020 07/12/2020 07/13/2020 1:56 AM LABOURERS Assessment Noted Time PHQ-9 Depression Total Score: 8 10/13/2017 12:58 PM CD T documented as of this encounter Care Teams Director Of Psychiatry Relationship Specialty Start Date End Date Chaparro Payan P.A.-C. PCP - General 02/05/[address] [place] [phone] documented as of this encounter
--- OUTSIDE RECORDS SUMMARY | 2022-02-18 07:27 | XMS_ITS | Encounter Summary ---
:2000 Author Organization [facility] Address [address] [place] [address] Care Team Providers Name Role Phone Chaparro Payan P.A.-C. Primary Care Provider [phone] Reason for Visit Reason Onset Date Comments Testing For Upper Respiratory Virus Symptoms 06/23/2020 Encounter Details Date Type Department Care Team Description 06/23/2020 External Outreach Department of Wood Guzman And Internal Medicine in [place], D.OBettie (Suspected) Exposure [place], [place] [address] [place] [address] To COVID-19 (Primary [address] [place], [place] Dx) [place] [phone] Social History Tobacco Use Types Packs/Day Years [...] 08/02/2020 relatives? How often do you attend protestant or yazidism 1 to 4 times per year 08/02/2020 services? Do you belong to any clubs or organizations such No 08/02/2020 as protestant groups, unions, fraternal or athletic groups, or [...] Influenza, RSV, and/or Group A Strep testing. WINDER documented in this encounter Plan of Treatment Not on filedocumented as of this encounter Procedures Procedure Name Priority Date/Time Associated Diagnosis Comme nts SARS CORONAVIRUS-2 Routine 06/23/2020 1:35 PM Contact With And Results for this RNA, V ROLL WINDER (Suspected) Exposure procedu re are in To COVID-19 the results section. documented in this encounter Results SARS Coronavirus-2 RNA, V Symptomatic (06/23/2020 1:35 PM ROLL WINDER) [facility] Method Time Signature SARS-CoV-2 Swab, 06/24/2020 [facility] Specimen Nasopharynx 2:17 PM ROLL WINDER Source SARS CoV-2 Undetected Undetected 06/24/2020 [facility] RNA, TMA 2:17 PM ROLL WINDER Comment: SARS-CoV-2 RNA absent. This result does not rule out COVID-19 in the patient, as the sensitivity of the test depends o n the timing of the specimen collection and the quality of the specim en. Result should be correlated with patient's history and clinical presentat ion. ----ADDITIONAL INFORMATION---- This molecular amplification test was pe rformed using the Aptima SARS-CoV-2 assay ([employer] on the Chef Dovunques tem under emergency use authorization (EUA) by the U.S. Food and Drug Administ ration. Fact sheets for this EUA assay can be fo und at the following links: For Healthcare Providers: https://www.fd a.gov/media/635006/download For Patients: https://www.fda.gov/media/ 046157/download Specimen Anatomical Collection Method Collection Time Receive d Time (Source) Location / / Volume Laterality Varies 06/23/2020 1:35 PM 6:28 (Nasopharynx) ROLL WINDER AM ROLL WINDER Wood Guzman D.O. LAB MICROBIOLOGY - GENERAL O RDERABLES Performing Organization Address City/State/ZIP Code Phon e Number [facility]- [address] [place] [address] [place] [address] System in [place] [address] [place] [address] documented in this encounter Visit Diagnoses Diagnosis Contact With And (Suspected) Exposure To COVID-19 - Primary documented in this encounter Additional Health Concerns Infection Onset Date Last Indicated Resolved Time COVID19 Pending 06/23/2020 06/23/2020 06/24/2020 2:18 PM ROLL WINDER Assessment Noted Time PHQ-9 Depression Total Score: 8 10/13/2017 12:58 PM CD T documented as of this encounter Care Teams Dehydration Plant Operator Relationship Specialty Start Date End Date Chaparro Payan P.A.-C. PCP - General 02/05/[address] [place] [phone] documented as of this encounter
--- OUTSIDE RECORDS SUMMARY | 2022-02-18 07:28 | XMS_ITS | Encounter Summary ---
:2000 Author Organization [facility] Address [address] [place] [address] Care Team Providers Name Role Phone Chaparro Payan P.A.-C. Primary Care Provider [phone] Encounter Details Date Type Department Care Team Description 03/28/2020 Admin Visit Department of Family Medicine, [address] [address] [facility] [phone] Social History Tobacco Use Types Packs/Day Years [...] 08/02/2020 relatives? How often do you attend sabianism or samaritan 1 to 4 times per year 08/02/2020 services? Do you belong to any clubs or organizations such No 08/02/2020 as sabianism groups, unions, fraternal or athletic groups, or [...] documented as of this encounter Care Teams American History Professor Relationship Specialty Start Date End Date Chaparro Payan P.A.-C. PCP - General 02/05/[address] [place] [phone] documented as of this encounter
--- OUTSIDE RECORDS SUMMARY | 2022-02-18 07:28 | XMS_ITS | Encounter Summary ---
:2000 Author Organization [facility] Address [address] [place] [address] Care Team Providers Name Role Phone Chaparro Payan P.A.-C. Primary Care Provider [phone] Reason for Visit Reason Onset Date Comments Outpatient COVID-19 Testing 02/28/2020 Encounter Details Date Type Department Care Team Description 02/28/2020 External Outreach Urgent [facility] [place], [place] [facility] ([place] [address] [facility] [address]) DR Génesis [facility] SERVICES[facility], [place] [phone] [phone] Social History Tobacco Use Types Packs/Day Years [...] RNA, V Symptomatic (02/28/2020 12:06 PM CDT) [facility] Method Time Signature SARS-CoV-2 Swab, 02/29/2020 MKTO [...] is performed using the Aptima SARS-CoV-2 assay ([employer] which has received Emergency Use Authori zation (EUA) by the U.S. Food and Drug Administration. Fact sheets for this Emergency Use Autho rization (EUA) assay can be found at the following links: For Healthcare Providers: https://www.fd a.gov/media/578499/download For Patients: https://www.fda.gov/media/ 300042/download Specimen Anatomical Collection Method Collection Time Receive d Time (Source) Location / / Volume Laterality Varies 02/28/2020 12:06 02/28/2020 7:35 (Nasopharynx) PM CDT PM CDT Kee Kemp P.A.-C. LAB MICROBIOLOGY - GENERAL O JIMMY Performing Organization Address City/State/ZIP Code Phon e Number [facility] [place] [address] [place] [address] System in [place] [address] [place] [address] documented in this encounter Visit Diagnoses Diagnosis Infection Upper Respiratory - Primary documented in this encounter Additional Health Concerns Infection Onset Date Last Indicated Resolved Time COVID19 Pending 02/28/2020 02/28/2020 02/29/2020 4:25 AM CDT Assessment Noted Time PHQ-9 Depression Total Score: 8 10/13/2017 12:58 PM CD T documented as of this encounter Care Teams Produce Inspector Relationship Specialty Start Date End Date Chaparro Payan P.A.-C. PCP - General 02/05/18 [address] [place] [address] documented as of this encounter
--- OUTSIDE RECORDS SUMMARY | 2022-02-18 07:28 | XMS_ITS | Encounter Summary ---
:1998 Author Organization [facility] Address [address] [place] [address] Care Team Providers Name Role Phone Unavailable Primary Care Provider Unavailable Encounter Details Date Type Department Care Team Description 02/18/2011 Hospital Encounter HX [facility] FBKF FAMILYPRA Elmo Kitchen, BEL, C.N.P., D. N.P. [address] [place], [place] [address] (Wo rk) Social History [...] 08/02/2020 relatives? How often do you attend faith or protestant 1 to 4 times per year 08/02/2020 services? Do you belong to any clubs or organizations such No 08/02/2020 as faith groups, unions, fraternal or athletic groups, or [...]
--- OUTSIDE RECORDS SUMMARY | 2022-02-18 07:28 | XMS_ITS | Encounter Summary ---
:1998 Author Organization [facility] Address [address] [place] [address] Care Team Providers Name Role Phone Chevy, Miranda Guadalupe APRN C.N.P., M.S.N. Primary Care Pr ovider Encounter Details Date Type Department Care Team Description 10/13/2017 Hospital Encounter Department of Radiology Amrita Payan, Pain Back in [facility] PBettieAEnoch [address] [place] [address] [place], [place] [phone] (Wo rk) Social History Tobacco Use [...] 08/02/2020 relatives? How often do you attend amish or zoroastrian 1 to 4 times per year 08/02/2020 services? Do you belong to any clubs or organizations such No 08/02/2020 as amish groups, unions, fraternal or athletic groups, or [...] documented as of this encounter Care Teams County Agricultural Agent Relationship Specialty Start Date End Date Reece, Miranda Guadalupe APRN, C.N.P., PCP - General 02/04/18 M.S.N. [address] [place] [address] documented as of this encounter
--- OUTSIDE RECORDS SUMMARY | 2022-02-18 07:28 | XMS_ITS | Encounter Summary ---
:1998 Author Organization [facility] Address [address] [place] [address] Care Team Providers Name Role Phone Unavailable Primary Care Provider Unavailable Encounter Details Date Type Department Care Team Description 04/17/2011 Hospital Encounter HX [facility] FBKF FAMILYPRA Norman Payan P.A.-C. [address] [place] [address] (Wo rk) Social History Tobacco [...] How often do you attend muslim or sabianist 1 to 4 times per year 08/02/2020 [...] (97 lb 7.1 oz) 04/17/2011 3:56 PM AIRBORNE ELECTRONICS ANALYST Height 149.2 cm (4' 10.74) 04/17/2011 3:56 PM AIRBORNE ELECTRON[employer] ANALYST Body Mass Index 19.86 04/17/2011 3:56 PM AIRBORNE ELECTRON[employer] ANALYST Body Mass Index Percentile 69.40 % 04/17/2011 3:56 PM CS T Growth Chart: [facility] (Girls, 2-20 Years) documented in this encounter Progress Notes Mikael Payan P.A.-C. - 04/17/2011 12:00 AM CST [id number] CHIEF COMPLAINT/ REASON FOR VISIT Sport's history [...] recommend that she follow up with an art installer for further evaluation and treatment of this and otherwise she may participate in sports without any restrictions. If there are any questions or problems she will let us know, otherwise follow up as needed. TLR/kln Signed [facility] Electronically Signed By: MIKAEL PAYAN PA-C On: 04/20/2011 01:49 PM Source: [facility] MHSDOLBEYNONRADSYS Document Id: [id number] ORNE ELECTRONICS ANALYST documented in this encounter Procedure Notes Conversion, Historical Provider Ser - 04/17/2011 4:36 PM CST Vision Testing Vision Testing Entered On: 04/17/2011 16:36 AIRBORNE ELECT[employer] ANALYST Performed On: 04/17/2011 16:36 AIRBORNE ELECTRONICS ANALYST by VIVIAN PEDERSEN LPN Vision Testing Corrective Lenses : None Eye, Right w/o Correction : 20/50 Eye, Left w/o Correction : 20/70 NUVIALACHO CroweSesar Castrejon LPN - 04/17/2011 16:36 AIRBORNE E[employer] ANALYST [facility] Document Id: [id number] AIRBORNE E[employer] ANALYST!5 documented in this encounter Miscellaneous Notes Miscellaneous - Mikael Payan P.A.-C. - 04/17/2011 4:28 PM CST Ambulatory Patient Summary [address] [address] Visit Information Name: CITLALY HOLLAND Current Date: [...] No Appointments found Your Goals/Additional instructions: [facility] Document Id: [id number] [employer]NE ELECTRONICS ANALYST Miscellaneous - Mikael Payan P.A.-C. - 04/17/2011 4:28 PM CST Ambulatory Depart Summary [address] [address] Visit Information Name: CITLALY HOLLAND Current Date: 04/17/2011 16:28:29 Primary Care Provider: BERNY SCHILLING CNP CITLALY HOLLAND has been given the [...] for Pain / Fever Additional Information: Source: [facility] POWERCHART Document Id: [id number] ORNE ELECTRONICS ANALYST Miscellaneous - Conversion, Historical Provider Ser - 04/17/2011 3:56 PM AIR[employer]NE E[employer] ANALYST [facility] Director Intake/History [facility] Director Intake/History Entered On: 04/17/2011 15:59 AIRBORNE ELECTRON[employer] ANALYST Performed On: 04/17/2011 15:56 AIRBORNE ELECTRONICS ANALYST by VIVIAN PEDERSEN LPN Intake Peripheral Pulse Rate : 84/min Respiratory Rate : 20/min Systolic Blood Pressure : 106mmHg Diastolic Blood Pressure : 52mmHg NIBP Mean : 70mmHg BP Location : Right upper extremity Heart Rhythm : Regular VIVIAN PEDERSEN LPN - 04/17/2011 15:59 AIRBORNE ELECT[employer] ANALYST Chief Complaint : Sports physical Ambulatory Intake Additional Information : Arm span:145 cm Temperature Oral : 36.7C(Converted to: 98.1DegF) Height : 149.2cm(Converted to: 4ft 11inch(es), 58.74inch(es)) Actual Weight : 44.2kg(Converted to: 97lb 7oz) Weight Source : Standing scale Dosing Weight Clinic : 44.20kg Clinic BSA : 1.35 Body Mass Index : 19.86kg/m2 VIVIAN PEDERSEN [facility] - 04/17/2011 15:56 AIR[employer]NE E[employer] ANALYST Subjective Pain Symptoms : No VIVIAN PEDERSEN [employer] - 04/17/2011 15:56 AIRB[employer]NE ELECTRON[employer] ANALYST Dependent Habits Tobacco Use/Currently Using : No Tobacco Use/Last 12 months : No Smoking Status : Never smoker Alcohol Use : No VIVIAN PEDERSEN [facility] - 04/17/2011 15:56 [employer]NE E[employer] ANALYST Caffeine Use Grid Caffeine Use : Current Type : Chocolate, Soft drinks Frequency : Monthly Amount : 2 times per month Last Use : today VIVIAN PEDERSEN [facility] 04/17/2011 15:56 AIRB[employer]NE E[employer] ANALYST Recreational Drug Use Grid Drug Use : None VIVIAN PEDERSEN [facility] 04/17/2011 15:56 AIRBORNE ELECTRON[employer] ANALYST Allergy Allergies (Active) penicillin Estimated Onset Date: Unspecified ; Created By: CHARO TENORIO; Reaction Status: Active ; Category: Drug ; Substance: penicillin ; Type: Allergy ; Severity: Mild ; Updated By: CHARO TENORIO; Source: Family ; Reviewed Date: 04/17/2011 15:52 AIR[employer]NE ELECT[employer] ANALYST Source: [facility] POWERCHART Document Id: [id number] [employer]NE ELECT[employer] ANALYST!9 documented in this encounter Plan of Treatment Not on filedocumented as of this encounter Visit Diagnoses Not on filedocumented in this encounter
--- OUTSIDE RECORDS SUMMARY | 2022-02-18 07:28 | XMS_ITS | Encounter Summary ---
:2000 Author Organization [facility] Address [address] [place] [address] Care Team Providers Name Role Phone Unavailable Primary Care Provider Unavailable Encounter Details Date Type Department Care Team Description 04/30/2015 Hospital Encounter HX NO MAPPING Miranda Reece APRN, C.N.P., M. S.N. [address] [place], [place] [phone] (Wo rk) Social History [...] How often do you attend religious or buddhism 1 to 4 times per year 08/02/2020 [...] Historical Provider Ser - 04/30/2015 11:59 PM ADMITTING COUNSELOR Coding Summary-Paper Based CODING DATE: 05/13/2015 FINAL [facility] STATUS: * Discharged to Home or Self [...] HOLLY Date Saved: 05/13/2015 10:25 am Source[facility] Document Id: [id number] documented in this encounter Plan of Treatment Not on filedocumented as of this encounter Visit Diagnoses Not on filedocumented in this encounter
--- OUTSIDE RECORDS SUMMARY | 2022-02-18 07:28 | XMS_ITS | Encounter Summary ---
:1998 Author Organization [facility] Address [address] [place] [address] Care Team Providers Name Role Phone Chaparro Payan P.A.-C. Primary Care Provider [phone] Encounter Details Date Type Department Care [...] 08/02/2020 relatives? How often do you attend bahai or lutheran 1 to 4 times per year 08/02/2020 services? Do you belong to any clubs or organizations such No 08/02/2020 as bahai groups, unions, fraternal or athletic groups, or [...] no amblyopia CDM Reports - EYEGEN Id: [id number] Status: Fnl documented in this encounter Plan of Treatment Not on filedocumented as of this encounter Visit Diagnoses Not on filedocumented in this encounter Additional Health Concerns Infection Onset Date Last Indicated Resolved Time COVID19 Pending 02/28/2020 02/28/2020 02/29/2020 4:25 AM CDT COVID19 Pending 03/27/2020 03/28/2020 03/29/2020 10:23 PM CDT COVID19 Pending 06/23/2020 06/23/2020 06/24/2020 2:18 PM ARC CUTTER COVID19 Pending 07/12/2020 07/12/2020 07/13/2020 1:56 AM ARC CUTTER documented as of this encounter Care Teams Cloth Bleaching Range Tender Relationship Specialty Start Date End Date Chaparro Payan P.A.-C. PCP - General 02/05/[address] [place] [phone] documented as of this encounter
--- OUTSIDE RECORDS SUMMARY | 2022-02-18 07:28 | XMS_ITS | Encounter Summary ---
:1998 Author Organization [facility] Address [address] [place] [address] Care Team Providers Name Role Phone Chevy, Miranda Guadalupe APRN C.N.P., M.S.N. Primary Care Pr ovider Reason for Visit Reason Comments New Patient Outpatient (Routine) - Closed Specialty Diagnoses / Referred By Contact Referred To Contact Procedures Cardiovascular Diseases / Diagnoses Bicuspid Aortic Valve (HCC) Phyllis Ramírez, [facility] Cardiovascular Disease M.DBettie [address] [place] [address] Referral ID Status Reason Start Date Expiration Date Visits Requ ested Visits Authorized [id number] Closed 11/03/2017 11/03/2018 1 1 Encounter Details Date Type Department Care Team Description 11/17/2017 Comprehensive Visit Department of Rene Minor Aortic Cardiovascular TSilvio, M.P.H. Valve (HCC) Diseases in [address] [place] [address] [address] [facility] [address] [place], [place] [phone] (Work) [phone] Social History Tobacco Use Types Packs/Day Years [...] How often do you attend sabianism or druze 1 to 4 times per year 08/02/2020 [...] documented as of this encounter Care Teams Stove Bottom Worker Relationship Specialty Start Date End Date Miranda Reece APRN, C.N.P., PCP - General 02/04/18 M.S.N. [address] [place] [address] documented as of this encounter
--- OUTSIDE RECORDS SUMMARY | 2022-02-18 07:28 | XMS_ITS | Encounter Summary ---
:1998 Author Organization [facility] Address [address] [place] [address] Care Team Providers Name Role Phone Unavailable Primary Care Provider Unavailable Encounter Details Date Type Department Care Team Description 04/30/2015 Hospital Encounter HX [facility] FBKF FAMILYPRA Miranda Reece APRN, C.N.P., M.S.N. [address] [place] [address] (Wo rk) Social History Tobacco Use Types [...] How often do you attend evangelical or alevism 1 to 4 times per year 08/02/2020 [...] (131 lb 2.8 oz) 04/30/2015 3:28 PM CATTLE EXAMINER Height 158 cm (5' 2.21) 04/30/2015 3:28 PM CATTLE EXAMINER Body Mass Index 23.83 04/30/2015 3:28 PM CATTLE EXAMINER Body Mass Index Percentile 79.89 % 04/30/2015 3:28 PM CS T Growth Chart: [facility] (Girls, 2-20 Years) documented in this encounter H&P Notes Chevy, Miranda Guadalupe, BEL, TIFFANIE - 04/30/2015 3:19 PM CST [id number] CHIEF COMPLAINT/REASON FOR VISIT Annual physical. HISTORY [...] Jansen -C./francesca Electronically Signed By: MIRANDA REECE [facility] On: 05/21/2015 02:28 PM Source: [facility] MHSDOLBEYNONRADSYS Document Id: [id number] LE EXAMINER documented in this encounter Miscellaneous Notes Miscellaneous - Triston Mccormick, L.P.N. - 04/30/2015 3:32 PM CST PHQ-9 - Teens PHQ-9 - Teens Entered On: 04/30/2015 15:33 CATTLE EXAMINER Performed On: 04/30/2015 15:32 CATTLE EXAMINER by TRISTON MCCORMICK LPN PHQ-9 - Teens [...] No TRISTON MCCORMICK LPN - 04/30/2015 15:32 CATTLE EXAMINER Source: [employer] Document Id: [id number] CATTLE EXAMINER!16 LE EXAMINER Miscellaneous - Triston Mccormick L.P.N. - 04/30/2015 3:28 PM CST Pediatric Manufacturing Production Manager Intake/History Pediatric Manufacturing Production Manager Intake/History Entered On: 04/30/2015 15:31 CATTLE EXAMINER Performed On: 04/30/2015 15:28 CATTLE EXAMINER by TRISTON MCCORMICK LPN Intake Chief Complaint [...] kg/m2 TRISTON MCCORMICK LPN - 04/30/2015 15:28 CATTLE EXAMINER General Info Accompanied By : Mother, Sibling Information Given By : Patient Languages : Macedonian, French Is Patient Female and 13-50 no hysterectomy : Yes Status : Patient denies Are you ? : No TRISTON MCCORMICK LPN - 04/30/2015 15:28 CATTLE EXAMINER Subjective Pain Symptoms : No TRISTON MCCORMICK LPN - 04/30/2015 15:28 CATTLE EXAMINER Dependent Habits Exposure to Tobacco Smoke : Care provider denies smoking in home Smoking Status : Never smoker Tobacco 2A : No Alcohol Use : No TRISTON MCCORMICK LPN - 04/30/2015 15:28 CATTLE EXAMINER Caffeine Use Grid Caffeine Use : Current Type : Chocolate, Soft drinks Frequency : Weekly Amount : 2 times per month Last Use : 04/30/15 TRISTON MCCORMICK LPN - 04/30/2015 15:28 CATTLE EXAMINER Recreational Drug Use Grid Drug Use : None TRISTON MCCORMICK LPN - 04/30/2015 15:28 CATTLE EXAMINER Source: [facility] voxappCHART Document Id: [id number] CATTLE EXAMINER!42 LE EXAMINER documented in this encounter Plan of Treatment Not on filedocumented as of this encounter Procedures Procedure Name Priority Date/Time Associated Comments Diagnosis CHLAMYDIA/GONORRHOEAE Routine 04/30/2015 3:30 PM Results for this AMPLIFIED RNA CATTLE EXAMINER procedure are in the results section. CHLAMYDIA TRACHOMATIS Routine 04/30/2015 3:30 PM Results for this AMPLIFIED RNA CATTLE EXAMINER procedure are in the results section. documented in this encounter Results Chlamydia / Gonorrhoeae Amplified RNA (04/30/2015 3:30 PM CATTLE EXAMINER) Component Value Ref Test Analysis Performed At [facility] Range Method Time Signature HX GC by Nucleic POWERCHART Acid Amplification HXFinal Negative for POWERCHART Neisseria gonorrhea by RNA amplification . HXFinal Reference: POWERCHART Negative HXFinal If you POWERCHART submitted a female urine sample, please note it is a Laboratory Developed Test. Specimen (Source) Anatomical Collection Method Collection Time Re ceived Time Location / / Volume Laterality Urine 04/30/2015 3:30 PM CATTLE EXAMINER Miranda Reece APRN, C.N.P., M.S.N. LAB MICROB IOLOGY - GENERAL ORDERABLES Performing Organization Address City/State/ZIP Code Phon e Number POWERCHART Chlamydia Trachomatis Amplified RNA (04/30/2015 3:30 PM CATTLE EXAMINER) Component Value Ref Test Analysis Performed At [facility] Range Method Time Signature HXChlamydia by POWERCHART Nucleic Acid Amplification HXFinal Negative for POWERCHART Chlamydia trachomatis by RNA amplification. HXFinal Reference: POWERCHART Negative HXFinal If you POWERCHART submitted a female urine sample, please note it is a Laboratory Developed Test. Specimen (Source) Anatomical Collection Method Collection Time Re ceived Time Location / / Volume Laterality Urine 04/30/2015 3:30 PM CATTLE EXAMINER Miranda Reece APRN, C.N.P., M.S.N. LAB MICROB IOLOGY - GENERAL ORDERABLES Performing Organization Address City/State/ZIP Code Phon e Number POWERCHART documented in this encounter Visit Diagnoses Not on filedocumented in this encounter
--- OUTSIDE RECORDS SUMMARY | 2022-02-18 07:28 | XMS_ITS | Encounter Summary ---
:1998 Author Organization [facility] Address [address] [place] [address] Care Team Providers Name Role Phone Chaparro Payan P.A.-C. Primary Care Provider [phone] Encounter Details Date Type Department Care Team Description 02/20/2020 Orders Only [facility] SEMN PCP [facility] MNT Chaparro Payan P.A.-C. [address] [place] [address] (Wo rk) Social History [...] 08/02/2020 relatives? How often do you attend orthodox or confucianism 1 to 4 times per year 08/02/2020 services? Do you belong to any clubs or organizations such No 08/02/2020 as orthodox groups, unions, fraternal or athletic groups, [...] documented as of this encounter Care Teams Food Safety Specialist Relationship Specialty Start Date End Date Chaparro Payan P.A.-C. PCP - General 02/05/[address] [place] [phone] documented as of this encounter
--- OUTSIDE RECORDS SUMMARY | 2022-02-18 07:28 | XMS_ITS | Encounter Summary ---
:1998 Author Organization [facility] Address [address] [place] [address] Care Team Providers Name Role Phone Chevy, Miranda Guadalupe APRN C.N.P., M.S.N. Primary Care Pr ovider Reason for Visit Reason Comments Follow-up ER - [place] Encounter Details Date Type Department Care Team Description 10/13/2017 Office Visit Department of Family Chaparro Payan Bi cuspid Aortic Valve (HCC) (Primary Dx); Medicine, [place] [facility], in [address] [facility] [address] [place], [place] [phone] (Work) [phone] Social History Tobacco Use Types Packs/Day Years [...] How often do you attend jewish or sabianist 1 to 4 times per [...] 10/13/2017 12:52 PM C DT Growth Chart: [facility] (Girls, 2-20 Years) documented in this encounter [...] bothering her. 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 [address] [place] [address] documented as of this encounter
--- OUTSIDE RECORDS SUMMARY | 2022-02-18 07:28 | XMS_ITS | Encounter Summary ---
:2000 Author Organization [facility] Address [address] [place] [address] Care Team Providers Name Role Phone Chaparro Payan P.A.-C. Primary Care Provider [phone] Reason for Referral Outpatient (Routine) - Closed Specialty Diagnoses / Procedures Referred By Contact Refer red To Contact Diagnoses Bicuspid Aortic Valve (HCC) Fatigue Phyllis Ramírez M.D. [facility] [place] [facility] Procedures ECG 12 Lead KS EKG 12 LEAD TRACE ONLY KS EKG I&R ONLY [address] [facility] [place] [address] Referral ID Status Reason Start Date Expiration Date Visits Requ ested Visits Authorized [id number] Closed 09/03/2017 03/02/2018 1 1 Outpatient (Routine) - Closed Specialty Diagnoses / Procedures Referred By Contact Refer red To Contact Diagnoses Bicuspid Aortic Valve (HCC) Fatigue par review Phyllis Ramírez M.D. [facility] [place] [facility] Procedures Echo Transthoracic (TTE) KS ECHO TTE 2D W DPLR COMPLETE CVD ECHO [address] [place] [address] Referral ID Status Reason Start Date Expiration Date Visits Requ ested Visits Authorized [id number] Closed 09/03/2017 03/02/2018 1 1 Reason for Visit Reason Comments Annual Exam Encounter Details Date Type Department Care Team Description 09/03/2017 Comprehensive Visit Department of Hurtt, Phyllis Well A dult Examination Abnormal (Primary Dx); Family MedicineMaggy M.D. Overweight Body Mass Index 25-29.9 Adult ; [facility], [address] [facility] Bicuspid Aortic Valve (HCC); in [place], [place] Constipation Slow Transit; [place] [address] Dysmenorrhea; [address] [facility] [phone] Management Contraceptive; [place], [place] (Work) Fatigue; [address] Screening Examination For [...] 08/02/2020 relatives? How often do you attend christianity or confucianism 1 to 4 times per year 08/02/2020 services? Do you belong to any clubs or organizations such No 08/02/2020 as christianity groups, unions, fraternal or athletic groups, or [...] % 09/03/2017 10:25 AM CDT Growth Chart: [facility] (Girls, 2-20 Years) documented in [...] ECHO DOPPLER COLOR (11/02/2017 8:41 AM CDT) [facility] Method Time Signature Ejection Fraction 59 [...] Method Time Signature Source URINE, FIRST 09/06/2017 [facility] VOID 12:11 PM CDT [facility] Chlamydia Negative Negative 09/06/2017 [facility] trachomatis 12:11 PM CDT [facility] LAB Comment: ----ADDITIONAL INFORMATION---- This report is [...] - GENERAL O RDERABLES Performing Organization Address City/[facility]/ZIP Code Phon e Number [facility] [address] [place] [address] LAB ECG 12 Lead (09/03/2017 11:16 AM CDT) P athologist Signature Ventricular Rate 77 BPM MUSE ECG/Min KS Interval 136 ms MUSE QRSD Interval 80 ms MUSE QT Interval 330 ms MUSE QTC Interval 373 ms MUSE P [place] 31 degrees MUSE R [place] 7 degrees MUSE T Wave [place] 31 degrees MUSE Specimen Anatomical Collection Method Collection Time Receive d Time (Source) Location / / Volume Laterality 09/03/2017 11:16 09/03/2017 AM CDT 11:42 AM CDT Impressions MUSE - 09/03/2017 11:42 AM CDT Normal sinus rhythm Nonspecific ST abnormality No previous ECGs available Narrative This result has an attachment that is no t available. Phyllis Ramírez M.D. ECG ORDERABLES Performing Organization Address City/[facility]/ZIP Code Phon e Number MUSE MUSE NA S-TSH (Thyroid-Stimulating Hormone - Sensitive) (09/03/2017 11:08 AM CDT) P athologist Signature TSH, Sensitive 1.4 0.5 - 4.3 09/03/2017 [facility] mIU/L 1:46 PM CDT [facility] Comment: Biotin has been identified by the jose matthews as a potential interfering substance. ??Higher concentr ations of biotin may be found in multivitamins, hair/nail supple ments, and workout supplements. ??If the result does not [facility] clinical observations, repeat testing after patient refrains fr om the use of supplements for at least 12 hours. Specimen Anatomical Collection Method Collection Time Receive d Time (Source) Location / / Volume Laterality Blood (Blood, 09/03/2017 11:08 09/03/2017 1:09 Venous) AM CDT PM CDT Phyllis Ramírez M.D. LAB BLOOD ADD-ON Performing Organization Address City/State/ZIP Code Phon e Number [facility] [address] [place] [address] LAB (ABNORMAL) Lipid Panel (09/03/2017 11:08 AM CDT) athologist Signature Cholesterol, 205 (H) mg/dL 09/03/2017 [facility] Total 1:46 PM CDT [facility] LAB Comment: ----REFERENCE VALUE---- Desirable: < 200 Borderline high: 200 - 239 High: > or = 240 Triglycerides 206 (H) mg/dL 09/03/2017 1:46 PM CDT [facility] [place] [facility] Comment: ----REFERENCE VALUE---- Normal: <150 Borderline high: 150-199 High: 200-499 Very high: > or =500 Cholesterol, HDL, S 50 >=50 mg/dL 09/03/2017 1:46 PM CDT [facility] [place] [facility] Calculated LDL 114 mg/dL 09/03/2017 1:46 PM CDT [facility] [place] [facility] Comment: ----REFERENCE VALUE---- Desirable: <100 Above Desirable: 100-129 Borderline high: 130-159 High: 160-189 Very high: > or =190 Cholesterol, Non-HDL, 155 mg/dL 09/03/2017 1:46 PM CDT [facility] [place] B Comment: ----REFERENCE VALUE---- Desirable: <130 Above Desirable: 130-159 Borderline high: 160-189 High: 190-219 Very high: > or =220 Specimen Anatomical Collection Method Collection Time Receive d Time (Source) Location / / Volume Laterality Blood (Blood, 09/03/2017 11:08 09/03/2017 1:09 Venous) AM CDT PM CDT Phyllis Ramírez M.D. LAB BLOOD ADD-ON Performing Organization Address City/[facility]/ZIP Code Phon e Number [facility] [place] [address] [place] [address] LAB AST (Aspartate Aminotransferase) (09/03/2017 11:08 AM CDT) Patholo gist Method Time Signature Aspartate 16 8 - 43 09/03/2017 [facility] Aminotransferase U/L 1:46 PM CDT [facility] LAB Specimen Anatomical Collection Method Collection Time Receive d Time (Source) Location / / Volume Laterality Blood (Blood, 09/03/2017 11:08 09/03/2017 1:09 Venous) AM CDT PM CDT Phyllis Ramírez M.D. LAB BLOOD ADD-ON Performing Organization Address City/[facility]/ZIP Code Phon e Number [facility] [place] [address] [place] [address] LAB (ABNORMAL) BMP (Basic Metabolic Panel) (09/03/2017 11:08 AM CDT) Analysis Performed At Path logist Time Signature Potassium, S 4.1 3.6 - 5.2 09/03/2017 [facility] mmol/L 1:46 PM CDT [facility] LAB Sodium, S 142 135 - 145 09/03/2017 [facility] mmol/L 1:46 PM CDT [facility] [place] [facility] Chloride, S 101 98 - 107 09/03/2017 [facility] mmol/L 1:46 PM CDT [facility] [place] [facility] Bicarbonate, S 30 (H) 22 - 29 09/03/2017 [facility] mmol/L 1:46 PM CDT [facility] LAB Anion Gap 11 7 - 15 09/03/2017 [facility] 1:46 PM CDT [facility] [facility] BUN (Blood Urea 8 6 - 21 09/03/2017 [facility] Nitrogen), S mg/dL 1:46 PM CDT [facility] [place] [facility] Creatinine 0.56 (L) 0.59 - 09/03/2017 [facility] 1.04 mg/dL 1:46 PM T [facility] LAB eGFR-Non >90 >=60 09/03/2017 [facility] Black/ mL/min/BSA 1:46 PM CDT [facility] [place] [facility] Comment: ----ADDITIONAL INFORMATION---- Estimated GFR calculated using the 2009 CKD_EPI creatinine equation. eGFR-Black/ >90 >=60 mL/min/BSA 2017 1:46 PM [facility]- [facility] LAB Comment: ----ADDITIONAL INFORMATION---- Estimated GFR calculated using the 2009 CKD_EPI creatinine equation. Calcium, Total, S 9.6 9.1 - 10.3 mg/dL 09/03/2017 1 :46 PM CDT [facility] Glucose, S 80 70 - 140 mg/dL 09/03/2017 1:46 PM CDT [facility] LAB Specimen Anatomical Collection Method Collection Time Receive d Time (Source) Location / / Volume Laterality Blood (Blood, 09/03/2017 11:08 09/03/2017 1:09 Venous) AM CDT PM CDT Phyllis Ramírez M.D. LAB BLOOD ADD-ON Performing Organization Address City/State/ZIP Code Phon e Number [facility] [address], [place] [address] LAB CBC with Differential (09/03/2017 11:08 AM CDT) P athologist Signature Hemoglobin 13.6 11.6 - 09/03/2017 [facility] 15.0 g/dL 11:36 AM T [facility] Hematocrit 40.7 35.5 - 09/03/2017 [facility] 44.9 % 11:36 AM T [facility] Erythrocytes 4.60 3.92 - 09/03/2017 [facility] 5.13 11:36 AM CDT [facility] x10(12)/L [facility] MCV 88.5 78.2 - 09/03/2017 [facility] 97.9 fL 11:36 AM T [facility] RBC Distrib Width 13.2 12.2 - 09/03/2017 [facility] 16.1 % 11:36 AM CDT [facility] [place] [facility] Platelet Count 307 157 - 371 09/03/2017 [facility] x10(9)/L 11:36 AM CDT [facility] Leukocytes 8.7 3.4 - 9.6 09/03/2017 [facility] x10(9)/L 11:36 AM CDT [facility] [place] [facility] Neutrophils 5.74 1.56 - 09/03/2017 [facility] 6.45 11:36 AM CDT HEALTH x10(9)/L SYSTEM- [place] [facility] Lymphocytes 2.36 0.95 - 09/03/2017 [facility] 3.07 11:36 AM CDT HEALTH x10(9)/L SYSTEM- [place] [facility] Monocytes 0.48 0.26 - 09/03/2017 [facility] 0.81 11:36 AM CDT [facility]ALTH x10(9)/L SYSTEM- [place] [facility] Eosinophils 0.08 0.03 - 09/03/2017 [facility] 0.48 11:36 AM CDT [facility]ALTH x10(9)/L SYSTEM- [place] [facility] Basophils 0.01 0.01 - 09/03/2017 [facility] 0.08 11:36 AM CDT [facility]ALTH x10(9)/L SYSTEM- [place] [facility] Specimen Anatomical Collection Method Collection Time Receive d Time (Source) Location / / Volume Laterality Blood (Blood, 09/03/2017 11:08 09/03/2017 Venous) AM CDT 11:08 AM CDT Phyllis Ramírez M.D. LAB BLOOD ADD-ON Performing Organization Address City/State/ZIP Code Phon e Number [facility] [address] [place] [address] [place] [facility]- [address] [place], [place] [address] [place] [address] [facility] [facility] documented in this encounter Visit Diagnoses Diagnosis Well Adult Examination Abnormal - Primar y Overweight Body Mass Index 25-29.9 Adult Bicuspid Aortic Valve (HCC) Constipation Slow Transit Dysmenorrhea Management Contraceptive Fatigue Screening Examination For Chlamydial Dis ease Screening Lipid Bicuspid Aortic Valve (HCC) Fatigue documented in this encounter Care Teams Skin Care Instructor Relationship Specialty Start Date End Date Chaparro Payan P.A.-C. PCP - General 02/05/[address] [place] [phone] documented as of this encounter
--- OUTSIDE RECORDS SUMMARY | 2022-02-18 07:28 | XMS_ITS | Encounter Summary ---
:2000 Author Organization [facility] Address [address] [place] [address] Care Team Providers Name Role Phone Unavailable Primary Care Provider Unavailable Encounter Details Date Type Department Care Team Description 10/09/2016 Hospital Encounter HX FBCV FAMILYPRA Amrita Payan P.A.-C. [address] [place] [address] (Wo rk) Social History Tobacco Use [...] often do you attend oriental orthodox or jainism 1 to 4 times per year 08/02/2020 [...] Payan P.A.-C. - 10/09/2016 3:04 PM CDT [id number] CHIEF COMPLAINT/REASON FOR VISIT Sore throat. HISTORY [...] PAYAN PA-C On: 10/12/2016 09:00 AM Source: [facility] MHSDOLBEYNONRADSYS Document Id: [id number] documented in this encounter Miscellaneous Notes Miscellaneous - Mikael Payan P.A.-C. - 10/09/2016 4:34 PM CDT Ambulatory Discharge Medication List [address] [id number] Visit Information Name: CITLALY HOLLAND [facility] Number: [id number] Current Date: 10/09/2016 16:34:51 [...] PA-C Signed On:09-OCT-2016 16:34:49 Additional Information: Source: [facility] POWERCHART Document Id: [id number] Miscellaneous - Mikael Payan P.A.-C. - 10/09/2016 4:34 PM CDT Ambulatory Patient Summary [address] [id number] Visit Information Name: CITLALY HOLLAND [facility] Number: [id number] Current Date: 10/09/2016 16:34:51 [...] if you dont have one. Go to [email or web address] and click on Create Your Account. Then, follow the directions to complete the online form. Youll be asked for your [facility] number which you can find at the top of this document. Your Goals/Additional instructions: Source: [facility] POWERCHART Document Id: [id number] Miscellaneous - Roxana Hernandez L.PBettieNBettie - 10/09/2016 3:18 PM CDT Pediatric Automation Controls Expert Intake/History Pediatric Automation Controls Expert Intake/History Entered On: 10/09/2016 15:20 CDT Performed [...] Information Given By : Patient Languages : Lao Is Patient Female and 13-50 no hysterectomy [...] Tobacco Use/Last 12 months : No ROXANA EHRNANDEZ LPN - 10/09/2016 15:18 CDT Caffeine Use Grid Caffeine Use : Current Type : Chocolate, Soft drinks Frequency : Weekly Amount : 2 times per month Last Use : 04/30/15 ROXANA HERNANDEZ LPN - 10/09/2016 15:18 CDT Recreational Drug Use Grid Drug Use : None ROXANA HERNANDEZ LPN - 10/09/2016 15:18 CDT [facility] POWER[facility] Document Id: [id number] CDT!45 documented in this encounter Plan of [...] Strep A Screen (10/09/2016 3:30 PM CDT) [facility] [employer] Method Time Signature HXRapid Strep POWERCHART Confirmation [...] Strep A Screen (10/09/2016 3:30 PM CDT) [facility] [employer] Method Time Signature HXStrep A POWERCHART Screen [...]
--- OUTSIDE RECORDS SUMMARY | 2022-02-18 07:28 | XMS_ITS | Encounter Summary ---
:2000 Author Organization [facility] Address [address] [place] [address] Care Team Providers Name Role Phone Unavailable Primary Care Provider Unavailable Encounter Details Date Type Department Care Team Description 01/30/2011 Hospital Encounter HX [facility] FBKF FAMILYPRA Elmo Kitchen, BEL, C.N.P., D. N.P. [address] [place], [place] [address] (Wo rk) Social History [...] often do you attend roman catholic or methodist 1 to 4 times per year 08/02/2020 [...] 01/30/2011 1:23 PM CD T Growth Chart: [facility][NOTE 3] (Girls, 2-20 Years) documented in this encounter Progress Notes Lisa Kitchen APRN, C.N.P. - 01/30/2011 12:00 AM CDT [id number] CHIEF COMPLAINT / REASON FOR VISIT 10 [...] dad and patient as documented on the [facility] clinic visit sheet which will be scanned into the EMR also. Immunization given today Tdap and Menactra. Next wellness visit in 1-2 years or as needed. Patient and dad agree with plan. JMS/cmt Signed Lisa Crandall CNP Nurse Practitioner Electronically Signed By: LISA CRANDALL CNP On: 02/06/2011 02:26 pm Modified by and Electronically Signed by: LISA CRANDALL CNP On: 02/06/2011 02:26 pm Source: [facility] MHSDOLBEYNONRADSYS Document Id: [id number] documented in this encounter Procedure Notes Conversion, Historical Provider Ser - 01/30/2011 1:23 PM CDT Vision Testing Vision Testing Entered On: 01/30/2011 13:25 CDT Performed On: 01/30/2011 13:23 CDT by CHARO TENORIO Vision Testing Corrective Lenses: Glasses Eye, Right w/o Correction: 20/80 Eye, Left w/o Correction: 20/50 CHARO TENORIO - 01/30/2011 13:23 CDT Source: [facility] POWERCHART Document Id: [id number] CDT!5 documented in this encounter Miscellaneous Notes Miscellaneous - Lisa Kitchen APRN, C.N.P. - 01/30/2011 3:09 PM CDT Ambulatory Patient Summary [address] [address] Visit Information Name: CITLALY HOLLAND [...] No Appointments found Your Goals/Additional instructions: Source: [employer] Document Id: [id number] Electronically signed by Conversion, [facility] Stave Grader [id number] at 11/01/2016 2:47 PM CDT Miscellaneous - Lisa Kitchen, BEL, C.N.P. - 01/30/2011 3:09 PM CDT [place] [address] Visit Information Name: CITLALY HOLLAND Current Date: [...] to the patient and/or family, guardian/caregiver. Source: [employer] Document Id: [id number] Miscellaneous - Conversion, Historical Provider Ser - 01/30/2011 1:23 PM CDT Pediatric Barbering Teacher Intake/History Document Has Been Updated Pediatric Barbering Teacher Intake/History Entered On: 01/30/2011 13:24 CDT Performed [...] ; Reviewed Date: 01/30/2011 13:27 CDT Source: [facility] POWERCHART Document Id: [id number] CDT!3 documented in this encounter Plan of Treatment Not on filedocumented as of this encounter Visit Diagnoses Not on filedocumented in this encounter
--- OUTSIDE RECORDS SUMMARY | 2022-02-18 07:28 | XMS_ITS | Encounter Summary ---
:2000 Author Organization [facility] Address [address] [place] [address] Care Team Providers Name Role Phone Unavailable Primary Care Provider Unavailable Encounter Details Date Type Department Care Team Description 01/26/2013 Hospital Encounter HX [facility] FBKF FAMILYPRA Elmo Kitchen, BEL, C.N.P., D. N.P. [address] [place], [place] [address] (Wo rk) Social History [...] 08/02/2020 relatives? How often do you attend methodist or congregation 1 to 4 times per year 08/02/2020 services? Do you belong to any clubs or organizations such No 08/02/2020 as methodist groups, unions, fraternal or athletic groups, or [...] % 01/26/2013 10:42 AM CDT Growth Chart: [facility] (Girls, 2-20 Years) documented in this encounter H&P Notes Lisa Kitchen APRN, C.N.P. - 01/26/2013 10:25 AM CDT [id number] CHIEF COMPLAINT/REASON FOR VISIT Well-child exam and sports physical. HISTORY OF PRESENT ILLNESS The patient is a 12-year-old female who presents for her 12-year-old well-child exam. Patient was last seen by me for her 10-year-old well-child exam. Patient lives at home with her mom, dad, one brother, one sister and one cousin. She does speak Chinese in their home. Patient does wear glasses [...] ALLERGIES See EMR. SYSTEMS REVIEW Please see [facility] 11 to 14-year-old clinic visit sheet scanned into EMR for complete details. PAST MEDICAL/SURGICAL HISTORY Unchanged see EMR. SOCIAL HISTORY Patient lives at home with her mom, dad, brother, one sister and cousin. Denies tobacco, alcohol anddrug use. Patient is not sexually active. FAMILY HISTORY Unchanged see EMR. VITAL SIGNS See EMR. PHYSICAL EXAMINATION Please see scanned-in [facility] 11 to 14-year-old clinic visit sheet and [id number] sports qualifying physical examination clearance form as [...] CRANDALL CNP On: 02/13/2013 08:43 AM Source: [facility] MHSDOLBEYNONRADSYS Document Id: [id number] documented in this encounter Procedure Notes Conversion, [...] CDT KIRSTEN HUYNH 01/26/2013 11:23 CDT Source: [employer] Document Id: [id number] CDT!5 Conversion, Historical Provider Ser - 01/26/2013 [...] KIRSTEN HUYNH - 01/26/2013 11:39 CDT Source: [employer] Document Id: [id number] CDT!5 documented in this encounter Miscellaneous Notes Miscellaneous - Lisa Kitchen APRN, CBettieN.PBettie - 01/26/2013 5:17 PM CDT Ambulatory Patient Summary [address] [address] Visit Information Name: CITLALY HOLLAND [facility] Number: [id number] Current Date: 01/26/2013 17:17:31 Physicians [...] No Appointments found Your Goals/Additional instructions: Source: [facility] Document Id: [id number] Miscellaneous - Lisa Kitchen APRN, C.N.P. - 01/26/2013 5:17 PM CDT Ambulatory Depart Summary [address] [address] Visit Information Name: CITLALY HOLLAND [facility] Number: [id number] Visit Date: 01/26/2013 17:17:30 Attending [...] your provider for clarification. Additional Information: Source: [employer] Document Id: [id number] Miscellaneous - Conversion, Historical Provider Ser - 01/26/2013 10:42 AM CDT Pediatric Head Wrestling Coach Intake/History Pediatric Head Wrestling Coach Intake/History Entered On: 01/26/2013 10:43 CDT Performed [...] Information Given By : Patient Languages : Belarusian KIRSTEN HUYNH - 01/26/2013 10:42 CDT Subjective Pain Symptoms : No KIRSTEN HUYNH - 01/26/2013 10:42 CDT Dependent Habits Tobacco Use/Currently Using : No Tobacco Use/Last 12 months : No Tobacco Use/Advised to Quit : No Exposure to Tobacco Smoke : Care provider denies smoking in home Smoking Status : Never smoker KIRSTEN HUYHN 01/26/2013 10:42 CDT Caffeine Use Grid Caffeine Use : Current Type : Chocolate, Soft drinks Frequency : Monthly Amount : 2 times per month Last Use : today KIRSTEN HUYNH - 01/26/2013 10:42 CDT Recreational Drug Use Grid Drug Use : None KIRSTEN HUYNH 01/26/2013 10:42 CDT Source: [facility] POWERCHART Document Id: [id number] CDT!40 documented in this encounter Plan of Treatment Not on filedocumented as of this encounter Visit Diagnoses Not on filedocumented in this encounter
--- OUTSIDE RECORDS SUMMARY | 2022-02-18 07:28 | XMS_ITS | Encounter Summary ---
:2000 Author Organization [facility] Address [address] [place] [address] Care Team Providers Name Role Phone Chaparro Payan P.A.-C. Primary Care Provider [phone] Reason for Visit Reason Onset Date Comments Outpatient COVID-19 Testing 03/27/2020 Encounter Details Date Type Department Care Team Description 03/27/2020 External Outreach Department of Wood Guzman Infect ion Upper Internal Medicine in J, D.O. Respiratory (Primary [place], [place] [address] Dx) [address] [place] [phone] Social History Tobacco Use Types Packs/Day Years [...] 08/02/2020 relatives? How often do you attend sikhism or yazidi 1 to 4 times per year 08/02/2020 services? Do you belong to any clubs or organizations such No 08/02/2020 as sikhism groups, unions, fraternal or athletic groups, or [...] RNA, V Symptomatic (03/28/2020 3:08 PM CDT) [facility] Method Time Signature SARS-CoV-2 Swab, 03/29/2020 MKTO [...] is performed using the Aptima SARS-CoV-2 assay ([employer] which has received Emergency Use Authori zation (EUA) by the U.S. Food and Drug Administration. Fact sheets for this Emergency Use Autho rization (EUA) assay can be found at the following links: For Healthcare Providers: https://www.fd a.gov/media/514668/download For Patients: https://www.fda.gov/media/ 572074/download Specimen Anatomical Collection Method Collection Time Receive d Time (Source) Location / / Volume Laterality Varies 03/28/2020 3:08 PM 0 1:47 (Nasopharynx) CDT AM CDT Wood Guzman D.O. LAB MICROBIOLOGY - GENERAL O RDERABROOKE Performing Organization Address City/State/ZIP Code Phon e Number [facility] [place] [address] [facility] [place] [address] System in [place] [address] [place] [address] documented in this encounter Visit Diagnoses Diagnosis Infection Upper Respiratory - Primary documented in this encounter Additional Health Concerns Infection Onset Date Last Indicated Resolved Time COVID19 Pending 03/27/2020 03/28/2020 03/29/2020 10:23 PM CDT Assessment Noted Time PHQ-9 Depression Total Score: 8 10/13/2017 12:58 PM CD T documented as of this encounter Care Teams Fisher Terrapin Relationship Specialty Start Date End Date Chaparro Payan P.A.-C. PCP - General 02/05/18 [address] [place] [address] documented as of this encounter
--- OUTSIDE RECORDS SUMMARY | 2022-02-18 07:28 | XMS_ITS | Encounter Summary ---
:1998 Author Organization [facility] Address [address] [place] [address] Care Team Providers Name Role Phone Chevy, Miranda Guadalupe APRN C.N.PBettie, M.S.N. Primary Care Pr ovider Reason for Referral Outpatient (Routine) - Closed Specialty Diagnoses / Procedures Referred By Contact Refer red To Contact Diagnoses Bicuspid Aortic Valve (HCC) Fatigue par review Phyllis Ramírez M.D. [facility] [place] [facility] Procedures Echo Transthoracic (TTE) FL ECHO TTE 2D W DPLR COMPLETE CVD ECHO [address] [place] [address] Referral ID Status Reason Start Date Expiration Date Visits Requ ested Visits Authorized [id number] Closed 09/03/2017 03/02/2018 1 1 Reason for Visit Outpatient (Routine) - Closed Specialty Diagnoses / Procedures Referred By Contact Refer red To Contact Diagnoses Bicuspid Aortic Valve (HCC) Fatigue par review Phyllis Ramírez M.D. [facility] [place] [facility] Procedures Echo Transthoracic (TTE) FL ECHO TTE 2D W DPLR COMPLETE CVD ECHO [address] [place] [address] Referral ID Status Reason Start Date Expiration Date Visits Requ ested Visits Authorized [id number] Closed 09/03/2017 03/02/2018 1 1 Encounter Details Date Type Department Care Team Description 11/02/2017 Hospital Encounter Department of Phyllis Ramírez Aortic Valve (HCC); Cardiovascular Diseases Silvio Winter Fatigue in Ashley Frausto [address] [facility] [place], [place] SWEETIE FRAUSTO [phone] Social History Tobacco Use Types Packs/Day Years [...] How often do you attend quaker or yarsani 1 to 4 times per year 08/02/2020 [...] ECHO DOPPLER COLOR (11/02/2017 8:41 AM CDT) [facility] Method Time Signature Ejection Fraction 59 MC [...] documented as of this encounter Care Teams Reporting Developer Relationship Specialty Start Date End Date Reece, Miranda Guadalupe APRN, C.N.P., PCP - General 02/04/18 M.S.N. [address] [place] [phone] documented as of this encounter
--- OUTSIDE RECORDS SUMMARY | 2022-02-18 07:28 | XMS_ITS | Encounter Summary ---
:1998 Author Organization [facility] Address [address] [place] [address] Care Team Providers Name Role Phone Unavailable [...] often do you attend oriental orthodox or caodaism 1 to 4 times per year 08/02/2020 [...] ??Exam: US Cranial Pediatrics Indications: *PORTABLE*HEAD-FOLLOW UP ?[id number] ORIGINAL REPORT - 05-Feb-1999 17:40:00 The brain [...] Cranial Pe diatrics Indications: *PORTABLE*HEAD-FOLLOW UP [id number] ORIGINAL REPORT - 05-Feb-1999 17:40:00 The brain [...] 1 4:49 Robert GONZALEZ DIAGNOSTIC IMAGING PROCE [facility] general Pathology Report (01/29/1999 1:49 PM CDT) Specimen Anatomical Collection Method Collection Time Receive d Time (Source) Location / / Volume Laterality 01/29/1999 1:49 PM 9 1:49 CDT PM CDT Narrative [facility] - 01/29/1999 1:49 PM CDT [id number] Surgical Pathology Requested By: ? Ruben park M.D. ?([id number]) ?? TISSUE DESCRIPTION: ?? Distal ostomy (2.5 cm with ellipse o f skin) and proximal ostomy (5.2 cm in length) ?? [id number] A1, A2 ?? DIAGNOSIS: ?? Distal ostomy, excision: ??Benign sq uamous epithelium and colonic-type mucosa with mild chronic ?? inflammation. ?? Proximal ostomy, excision: ??Benign small bowel mucosa. ?? 29Jan1999 ?Erik TaverasS.:dam Procedure Note 08/20/2017 29Jan1999 Surgical Pathology Requested By: Ruben Shipley M.D. ([id number]) TISSUE DESCRIPTION: Distal ostomy (2.5 cm with ellipse of s kin) and proximal ostomy (5.2 cm in length) [id number] A1, A2 DIAGNOSIS: Distal ostomy, excision: Benign squamou s epithelium and colonic-type mucosa with mild chronic inflammation. Proximal ostomy, excision: Benign small bowel mucosa. 29Jan1999 Erik TaverasS.:suze toney Ruben Shipley M.D. LAB PATHOLOGY/CYTOLOGY ORDER TAYLOR Performing Organization Address City/State/ZIP Code Phon e Number [facility] - [address] Upper GI Double Contrast Without KUB [...] stomach. Electronically signed by: John Cassidy MD [phone] 28-Jan-1999 11:0 5 Hernan Maza M.D. IMLucía DIAGNOSTIC IMAGING PROCE [facility] Small Bowel (01/27/1999 2:36 PM CDT) Anatomical [...] Electronically signed by: ?? Yoli Hickman MD. ??[phone] 27-Jan-1999 15:14 Procedure Note Cecily Hickman M.D. [...] pneumotosis. Electronically signed by: Yoli Hickman MD. [phone] 27-Jan-1999 1 5:14 Robert Nick M.D. IMLucía [...] pneumotosis. Electronically signed by: Yoli Hickman MD. [phone] 27-Jan-1999 1 5:14 Robert Nick M.D. IMLucía [...] or co arctation. 2-D COMMENT: ??TAPE NUMBER: [id number]/09:45-34:40 ?Complete two-dimensional, color flow, and Doppler echocardiography [...] SYSTOLIC VALVE AREAS - ROUTIN E - [place] VALVE ? LVOT velocity (V1) ? 0.1 [...] Hg ? Narrative 01/23/1999 12:00 AM CDT [id number] ??ECHO ?FINAL REPORT ?? REPORT DATE: 23Jan1999 REFERRING MD: ??NICU ?RESPONSIBLE MD: ??Travis PBettie Mancera [phone] PROCEDURE TYPES: ?? 2-D, Doppler Video, and Color Flow. REFERRAL DIAGNOSIS: ?? Cardiomyopathy. ??Pediatric congenit al heart disease. HEMODYNAMICS: ?? Heart rate 151 BPM. ?? BP=44/31 FINAL Procedure Note Provider, Historical - 08/31/2017Formatt ing of this note might be different from the original. [id number] ECHO FINAL REPORT REPORT DATE: 23Jan1999 REFERRING MD: NICU RESPONSIBLE MD: Jermaine Farrell [phone] PROCEDURE TYPES: 2-D, Doppler Video, and Color [...] arteriosus or coarctation. 2-D COMMENT: TAPE NUMBER: [id number]:[id number]:40 Complete two-dimensional, color flow, a nd Doppler [...] AORTIC SYSTOLIC VALVE AREAS - ROUTINE - [place] VALVE LVOT velocity (V1) 0.1 m/sec Peak Aortic velocity (V2) 0.4 * m/sec 0 .5-1.8 Peak Aortic time monique int(TVI2) 29.0 cm V1/V2 ratio 0.25 LVOT diameter 0.5 cm Valve area (by velocity) 0.05 cm2 Peak velocity obtained from apex TRICUSPID SYSTOLIC - ROUTINE - [place] V ALVE Peak velocity 2.2 m/sec Maximal [...] I&D:100.705, 100.120 Electronically signed by: ?? John ??Kahnh MICHAEL ??[id number] 07-Jan-1999 13:50 Procedure Note Kaye Cassidy M.D. [...] 100.120 Electronically signed by: John Cassidy MD [phone] 07-Jan-1999 13:5 0 Robert Nick M.D. IMG US PROCEDURES HX SUBSEQ ORDER FOR NB? (01/03/1999 12:31 PM CDT) Specimen Anatomical Collection Method Collection Time Receive d Time (Source) Location / / Volume Laterality 01/03/1999 12:31 01/12/1999 1:14 PM CDT AM CDT Narrative [facility] - 01/03/1999 12:31 PM CDT 03 Jan 1999 ?[id number] ?Ro ?12:31 ?? Subsq Order for NB: ?Blood Component ?R BC, Irradiated Leukoreduced ?CPDA-1, Divided ?Transfused ? 04 Jan 1999 ?Unit Number Id ? [id number] Procedure Note 09/15/2017 03 Jan 1999 [id number] Ro 12:31 Subsq Order for NB: Blood Component RBC, Irradiated Leukore duced CPDA-1, Divided Transfused 04 Jan 1999 Unit Number Id [id number] Historical Provider LAB HISTORICAL ORDERS Performing Organization Address City/State/ZIP Code Phon e Number [facility] - [address] [place], [place] [address] [facility] DX Chest and Abdomen Portable [...] RLQ. Electronically signed by: John Cassidy MD [id number] 02-Jan-1999 07:3 6 Braulio Franco M.D. IMG DIAGNOSTIC IMAGING PROCE [facility] DX Infant Chest and Abdomen Portable [...] Electronically signed by: ?? Yoli Hickman MD. ??[phone] 01-Jan-1999 10:59 Procedure Note Cecily Hickman M.D. [...] RLQ. Electronically signed by: Yoli Hickman MD. [phone] 1 0:02 Braulio Franco M.D. IMG [...] Dave Fields Ph.D. IMG DIAGNOSTIC IMAGING PROCE [facility] DX Chest Portable 1 View (1998 6:45 [...] abdomen. Electronically signed by: ?? B.R. Bullernestina ??[phone] ([id number]) 1998 07:35 I have reviewed the films/images and agr ee with the above interpretation. Electronically signed by: ?? Yoli Hickman MD. ??[phone] 08:58 Procedure Note Cecily iHckman M.D. - 09/06/2017Form atting of this note [...] the abdomen. Electronically signed by: Esequiel Velasco [phone] ([id number]) 1998 07 :35 I have reviewed the films/images and agr ee with the above interpretation. Electronically signed by: Yoli Hickman MD. [phone] 0 8:58 Braulio Franco M.D. IMG [...] ?? Electronically signed by: ?? Esequiel Velasco ??[phone] ([id number]) 1998 00:24 I have reviewed the [...] of bowel. Electronically signed by: Esequiel Velasco [phone] ([id number]) 1998 00 :24 I have reviewed the films/images and agr ee with the above interpretation. Electronically signed by: Yoli Hickman MD. [phone] 1 5:39 Robert Nick M.D. IMLucía DIAGNOSTIC IMAGING [facility] DX Infant Chest and Abdomen Portable 1 [...] catheter. Electronically signed by: ?? Esequiel Velasco ??[phone] ([id number]) 1998 22:14 I have reviewed the films/images [...] Ball catheter. Electronically signed by: Esequiel Velasco [phone] ([id number]) 1998 22 :14 I have reviewed the films/images and agr ee with the above interpretation. Electronically signed by: Yoli Hickman MD. [phone] 1 5:44 Robert Nick M.D. IMLucía DIAGNOSTIC IMAGING PROCE [employer] DX Infant Chest and Abdomen Portable 1 [...] air. Electronically signed by: ?? Esequiel Velasco ??[phone] (F3) 1998 07:25 I have reviewed the films/images [...] free air. Electronically signed by: Esequiel Velasco [phone] ([id number]) 1998 07 :25 I have reviewed the films/images and agr ee with the above interpretation. Electronically signed by: Yoli Hickman MD. [phone] 0 9:26 Braulio GONZALEZ DIAGNOSTIC IMAGING PROCE [facility] DX Chest Portable 1 View (1998 2:45 [...] 8:47 AM 9 1:16 CDT AM CDT [facility] 1998 8:47 AM CDT 1998 ?[id number] ?Ro ?08:47 ?? Subsq Order for NB: ?Blood Component ?R BC, Irradiated Leukoreduced ?CPDA-1, Divided ?Transfused ? 1998 ?Unit Number Id ? [id number] Procedure Note 09/15/2017 1998 [id number] Ro 08:47 Subsq Order for NB: Blood Component RBC, Irradiated Leukore duced CPDA-1, Divided Transfused 1998 Unit Number Id [id number] Historical Provider LAB HISTORICAL ORDERS Performing Organization Address City/State/ZIP Code Phon e Number [facility] - [address] [place], [place] [address] [facility] DX Chest and Abdomen Portable [...] notified. Electronically signed by: ?? Mannie Fu ??[phone] ([id number]) 22-Dec-18 99 21:07 I have reviewed the films/images and agr ee with the above interpretation. Electronically signed by: ?? Chris Vega ??[phone] 21:45 Procedure Note Paolo Vega M.D. [...] notifie d. Electronically signed by: Mannie Fu [phone] ([id number]) 1998 21:07 I have reviewed the films/images and agr ee with the above interpretation. Electronically signed by: Chris Vega [phone] 21:45 Reed GONZALEZ DIAGNOSTIC IMAGING PROCE DURES HX SUBSEQ ORDER FOR NB? (1998 6:34 PM CDT) Specimen Anatomical Collection Method Collection Time Receive d Time (Source) Location / / Volume Laterality 1998 6:34 PM 9 1:16 CDT AM CDT Narrative [facility] - 1998 6:34 PM CDT 1998 ?[id number] ?Ro ?18:34 ?? Subsq Order for NB: ?Blood Component ?R BC, Irradiated Leukoreduced ?CPDA-1, Divided ?Transfused ? 1998 ?Unit Number Id ? [id number] ?Blood Component ?R BC, Irradiated Leukoreduced ?CPDA-1, Divided ?Transfused ? 1998 ?Unit Number Id ? [id number] Procedure Note 09/15/2017 1998 [id number] Ro 18:34 Subsq Order for NB: Blood Component RBC, Irradiated Leukore duced CPDA-1, Divided Transfused 1998 Unit Number Id [id number] Blood Component RBC, Irradiated Leukore duced CPDA-1, Divided Transfused 1998 Unit Number Id [id number] Historical Provider LAB HISTORICAL ORDERS Performing Organization Address City/State/ZIP Code Phon e Number [facility] - [address] [place], [place] [address] [facility] Hx general Pathology Report (1998 6:52 AM CDT) Specimen Anatomical Collection Method Collection Time Receive d Time (Source) Location / / Volume Laterality 1998 6:52 AM 9 6:52 CDT AM CDT Narrative [facility] - 1998 6:52 AM CDT [id number] Surgical Pathology Requested By: ? Bryant Maza M.D. ? ([id number]) ?? TISSUE DESCRIPTION: ?? 4 cm small bowel ?? [id number] A1 ?? DIAGNOSIS: ?? Small bowel, partial resection: ??Se gment of small bowel with marked ischemic changes, ?? consistent with necrotizing enteroco litis. ?? [id number] ?Brian Taveras.S.:mgs Procedure Note 08/20/2017 [id number] Surgical Pathology Requested By: Hernan Maza M.D. ( [id number]) TISSUE DESCRIPTION: 4 cm small bowel [id number] A1 DIAGNOSIS: Small bowel, partial resection: Segment of small bowel with marked ischemic changes, consistent with necrotizing enterocolit is. [id number] Abdi TaverasB.S.:mg s Hernan Maza M.D. LAB PATHOLOGY/CYTOLOGY ORDER TAYLOR Performing Organization Address City/State/ZIP Code Phon e Number [facility] - [address] [place], [place] [address] [facility] DX Infant Chest and Abdomen [...] Robert Nick M.D. IMG DIAGNOSTIC IMAGING PROCE [facility] DX Chest and Abdomen Portable 1 [...] RA. Electronically signed by: ?? Esequiel Velasco ??[phone] ([id number]) 1998 06:50 I have reviewed the films/images and agr ee with the above interpretation. Electronically signed by: ?? Yoli Hickman MD. ??[phone] 12:15 Procedure Note Cecily Hickman M.D. [...] in RA. Electronically signed by: Esequiel Velasco [phone] ([id number]) 1998 06 :50 I have reviewed the films/images and agr ee with the above interpretation. Electronically signed by: Yoli Hickman MD. [phone] 1 2:15 Robert GONZALEZ DIAGNOSTIC IMAGING PROCE [facility] DX Infant Chest and Abdomen Portable [...] Robert Nick M.D. IMLucía DIAGNOSTIC IMAGING PROCE [facility] DX Abdomen Portable Anterior Posterior 1 [...] interspace. Electronically signed by: ?? China Arrieta ??[phone] ([id number]) 1998 1 0:03 I have reviewed [...] L4-L5 interspace. Electronically signed by: China Arrieta [phone] ([id number]) 1998 10: 03 I have reviewed the films/images and agr ee with the above interpretation. Electronically signed by: John Cassidy MD [phone] 10:5 3 Historical Provider IMG DIAGNOSTIC [...] Electronically signed by: ?? Yoli Hickman MD. ??[phone] 14:12 Procedure Note Cecily Hickman M.D. [...] recommended. Electronically signed by: Yoli Hickman MD. [phone] 1 4:12 Robert Nick M.D. IMG [...] abdomen. Electronically signed by: ?? China Arrieta ??[phone] ([id number]) 1998 0 7:17 I have reviewed the films/images and agr ee with the above interpretation. Electronically signed by: ?? Yoli Hickman MD. ??[phone] 09:22 Procedure Note Cecily Hickman M.D. [...] the abdomen. Electronically signed by: China Arrieta [phone] ([id number]) 1998 07: 17 I have reviewed the films/images and agr ee with the above interpretation. Electronically signed by: Yoli Hickman MD. [phone] 0 9:22 Robert GONZALEZ DIAGNOSTIC IMAGING PROCE [facility] DX Chest Portable 1 View (1998 [...] Electronically signed by: ?? John ??Khanh MICHAEL ??[phone] 07:03 Procedure Note Kaye Cassidy M.D. - 09/06/2017Form atting of this note might be different from the original. 1998 06:56:00 Exam: Portable-Ches t Indications: follow rds ORIGINAL REPORT - 1998 07:03:00 Since yesteray, the ETT has been removed . Enteric tube, UAC, and UVC, remain in place and are unchanged in position. Pulmonary infiltrates have improved. Electronically signed by: John Cassidy MD [phone] 07:0 3 Robert Nick M.D. IMG [...] pattern. Electronically signed by: ?? China Arrieta ??[phone] ([id number]) 1998 0 7:14 I have reviewed [...] gas pattern. Electronically signed by: China Arrieta [phone] ([id number]) 1998 07: 14 I have reviewed the films/images and agr ee with the above interpretation. Electronically signed by: Chris Vega [phone] 10:51 Robert Nick M.D. IMG DIAGNOSTIC IMAGING [facility] US Head (1998 3:48 PM CDT) Anatomical [...] D:100.120 Electronically signed by: Yoli Hickman MD. [phone] 1 7:38 Robert Nick M.D. IMG [...] pattern. Electronically signed by: ?? China Arrieta ??[phone] ([id number]) 1998 0 7:54 I have reviewed [...] gas pattern. Electronically signed by: China Arrieta [phone] ([id number]) 1998 07: 54 I have reviewed the films/images and agr ee with the above interpretation. Electronically signed by: John Cassidy MD [phone] 09:0 1 Robert Nick M.D. IMG DIAGNOSTIC IMAGING PROCE [facility] US Head (1998 4:08 PM CDT) Anatomical Region Laterality Modality Head N/A Ultrasound Specimen (Source) Anatomical Collection Method Collection Time Re ceived Time Location / / Volume Laterality 1998 4:08 PM CDT Narrative 1998 5:29 PM CDT 1998 16:08:00 ??Exam: US Cranial Pediatrics Indications: *PORTABLE*HEAD-R/O IVH ?1ST [id number] ORIGINAL REPORT - 1998 17:29:00 I:100.705 ??No [...] Electronically signed by: ?? Yoli Hickman MD. ??[phone] 17:29 Procedure Note Cecily Hickman M.D. - 09/06/2017Form atting of this note might be different from the original. 1998 16:08:00 Exam: US Cranial Pe diatrics Indications: *PORTABLE*HEAD-R/O IVH [facility] [id number] ORIGINAL REPORT - 1998 17:29:00 I:100.705 No definite evidence of germin al matrix hemorrhage. Ventricles are normal in size. There is increased echotexture in the periventricular white matter, more prominent on the right. While this may represent a normal halo, periventricular leukomalaci a cannot be excluded. No definite evidence of intraventricular hemorrhage. Corpus callosum is present. D:100.120 Electronically signed by: Yoli Hickman MD. [phone] 1 7:29 Robert Nick M.D. IMLucía [...] Electronically signed by: ?? Yoli Hickman MD. ??[phone] 08:03 Procedure Note Cecily Hickman M.D. [...] loops. Electronically signed by: Yoli Hickman MD. [phone] 0 8:03 Robert Nick M.D. IMG [...] Clinton Luna M.D. IMG DIAGNOSTIC IMAGING PROCE [facility] DX Infant Chest and Abdomen Portable [...] bowel. Electronically signed by: ?? P. A. Elrosa ??[phone] [id number]) 1998 23:46 I have reviewed the films/images and agr ee with the above interpretation. Electronically signed by: ?? John ??Khanh MICHAEL ??[phone] 06:13 Procedure Note Kaye Cassidy M.D. [...] mid bowel. Electronically signed by: Jermaine Gamino [phone] ([id number]) 1998 2 3:46 I have reviewed the films/images and agr ee with the above interpretation. Electronically signed by: John Cassidy MD [phone] 06:1 3 Clinton GONZALEZ DIAGNOSTIC IMAGING PROCE DURES documented in this encounter Visit Diagnoses Not on filedocumented in this encounter
--- OUTSIDE RECORDS SUMMARY | 2022-02-18 07:28 | XMS_ITS | Encounter Summary ---
:1998 Author Organization [facility] Address [address] [place] [address] Care Team Providers Name Role Phone Reece, Miranda Guadalupe APRN C.N.PBettie, M.S.N. Primary Care Pr ovider Reason for Referral Outpatient (Routine) - Closed Specialty Diagnoses / Referred By Contact Referred To Contact Procedures Cardiovascular Diseases / Diagnoses Bicuspid Aortic Valve (HCC) Phyllis Ramírez, [facility] Cardiovascular Disease Silvio [address] [place] [address] Referral ID Status Reason Start Date Expiration Date Visits Requ ested Visits Authorized [id number] Closed 11/03/2017 11/03/2018 1 1 Encounter Details Date Type Department Care Team Description 11/03/2017 Orders Only Department of [facility] Phyllis Ramírez, Bic uspid Aortic Valve Medicine, Oren Anguiano (HCC) (Primary Dx) Clinic, in [address] [facility] [id number] [place] [address] [phone] (Work) [phone] Social History Tobacco Use Types Packs/Day Years [...] How often do you attend worship or nondenominational 1 to 4 times per year 08/02/2020 [...] documented as of this encounter Care Teams [employer] Worker Relationship Specialty Start Date End Date Miranda Reece APRN, C.N.P., PCP - General 02/04/18 M.S.N. [address] [place] [phone] documented as of this encounter
--- OUTSIDE RECORDS SUMMARY | 2022-02-18 07:28 | XMS_ITS | Encounter Summary ---
:1998 Author Organization [facility] Address [address] [place] [address] Care Team Providers Name Role Phone Unavailable Primary Care Provider Unavailable Encounter Details Date Type Department Care Team Description 10/09/2016 Hospital Encounter HX NO MAPPING Casper Payan P.A.-C. [address] [place] [phone] (Wo rk) Social History Tobacco Use [...] How often do you attend amish or denominational 1 to 4 times per year 08/02/2020 [...] Coding Summary-Paper Based CODING DATE: 10/20/2016 FINAL [facility] STATUS: * Discharged to Home or Self [...] HOLLY Date Saved: 10/20/2016 01:24 pm [facility] Document Id: [id number] documented in this encounter Plan of Treatment Not on filedocumented as of this encounter Visit Diagnoses Not on filedocumented in this encounter
--- OUTSIDE RECORDS SUMMARY | 2022-02-18 07:29 | XMS_ITS | Encounter Summary ---
:1998 Author Organization [facility] Address [address] [place] [address] Care Team Providers Name Role Phone Unavailable [...] 08/02/2020 relatives? How often do you attend anglican or adventism 1 to 4 times per year 08/02/2020 services? Do you belong to any clubs or organizations such No 08/02/2020 as anglican groups, unions, fraternal or athletic groups, or [...] Electronically signed by: ?? Yoli Hickman MD. ??[phone] 15:04 Procedure Note Cecily Hickman M.D. [...] AM 9 5:11 CDT PM CDT Narrative [facility] - 1998 9:09 AM CDT 1998 ?[id number] ?Ro ?09:09 ?? Subsq Order for NB: ?Blood Component ?R BC, Irradiated Leukoreduced ?CPDA-1, Divided ?Transfused ? 28 Jan 1999 ?Unit Number Id ? [id number] Procedure Note 09/15/2017 1998 [id number] Ro 09:09 Subsq Order for NB: Blood Component RBC, Irradiated Leukore duced CPDA-1, Divided Transfused 28 Jan 1999 Unit Number Id [id number] Historical Provider LAB HISTORICAL ORDERS Performing Organization Address City/State/ZIP Code Phon e Number [facility] - [address] [place] [address] [facility] Prepare Red Blood Cells (1998 9:08 AM CDT) Specimen Anatomical Collection Method Collection Time Receive d Time (Source) Location / / Volume Laterality 1998 9:08 AM 9 2:17 CDT PM CDT Narrative [facility] - 1998 9:08 AM CDT 1998 ?[id number] ?Ro ?09:08 ?? RBC TRF Order: ?ABO/RH ? O POS ?Antibody Screen ?N eg Procedure Note 09/15/2017 1998 [id number] Ro 09:08 RBC TRF Order: ABO/RH O POS Antibody Screen Neg Historical Provider BLOOD BANK PRODUCT ORDERABLE S Performing Organization Address [facility] [address] [facility] [place] Phon e Number [facility] - [address] ABORh, RBC (1998 9:08 AM CDT) Specimen Anatomical Collection Method Collection Time Receive d Time (Source) Location / / Volume Laterality 1998 9:08 AM 9 9:54 CDT AM CDT Narrative [facility] - 1998 9:08 AM CDT 1998 ?[id number] ?Ro ?09:08 ?? ABO and Rh Order (2): ?ABO/RH ? O POS Procedure Note 09/15/2017 1998 [id number] Ro 09:08 ABO and Rh Order (2): ABO/RH O POS Historical Provider LAB BLOOD BANK TEST ORDERABL ES Performing Organization Address [facility] [address]/[facility] Code Phon e Number [facility] - [address] DX Chest and Abdomen Portable 1 [...]
== END 2022-02-18 07:24 | disposition home or self-care (01) ==
PROVIDERS: Visit Provider Obstetrics & Gynecology
DX: O24.419 Gestational diabetes mellitus in pregnancy, unspecified control (principal); Z3A.37 37 weeks gestation of pregnancy
CPT/HCPCS: 76816; 76819

== ENCOUNTER 2022-02-18 09:33 | Outpatient (CLI) | payer OTHER, SELFPAY ==
--- OUTSIDE RECORDS SUMMARY | 2022-02-18 09:35 | XMS_ITS | Encounter Summary ---
:2000 Author Organization [facility] Address [address] [place] [address] Care Team Providers Name Role Phone Chaparro Payan P.A.-C. Primary Care Provider [phone] Encounter Details Date Type Department Care Team Description 02/28/2021 Immunization Department of [facility] Reed Barillas For COVID-19 Medicine, Chandrakant Walls M.D. Vaccine Immunization Clinic, in [address] [address] [place], [place] [phone] (Work) [phone] Social History Tobacco Use Types Packs/Day Years [...] 08/02/2020 relatives? How often do you attend orthodoxy or congregational 1 to 4 times per year 08/02/2020 services? Do you belong to any clubs or organizations such No 08/02/2020 as orthodoxy groups, unions, fraternal or athletic groups, or [...] documented as of this encounter Care Teams Spiral Binder Relationship Specialty Start Date End Date Chaparro Payan P.A.-C. PCP - General 02/05/[address] [place] [phone] documented as of this encounter
--- OUTSIDE RECORDS SUMMARY | 2022-02-18 09:35 | XMS_ITS | Encounter Summary ---
:2000 Author Organization [facility] Address [address] [place] [address] Care Team Providers Name Role Phone Chaparro Payan P.A.-C. Primary Care Provider [phone] Encounter Details Date Type Department Care Team Description 08/30/2020 Orders Only [facility] Sa daina Buckley M.D. [address] [place], [place] [phone] (Wo rk) Social History [...] How often do you attend methodist or yazidism 1 to 4 times per [...] documented as of this encounter Care Teams Chipper Relationship Specialty Start Date End Date Chaparro Payan P.A.-C. PCP - General 02/05/[address] [place] [phone] documented as of this encounter
--- OUTSIDE RECORDS SUMMARY | 2022-02-18 09:35 | XMS_ITS | Encounter Summary ---
:2000 Author Organization [facility] Address [address] [place] [address] Care Team Providers Name Role Phone Chaparro Payan P.A.-C. Primary Care Provider [phone] Reason for Referral Outpatient (Routine) - Closed Specialty Diagnoses / Procedures Referred By Contact Refer red To Contact Diagnoses Lesion Skin Chest Chaparro Payan P.A.-C. Procedures Lesion Excision and Closure [address] [place] [phone] Referral ID Status Reason Start Date Expiration Date Visits Requ ested Visits Authorized [id number] Closed 08/12/2020 08/12/2021 1 1 Reason for Visit Reason Comments Suspicious Skin Lesion R upper breast mole removal Outpatient (Routine) - Closed Specialty Diagnoses / Procedures Referred By Contact Refer red To Contact Family Medicine Chaparro Payan P. A.-C. [facility] [address] [place] [address] Referral ID Status Reason Start Date Expiration Date Visits Requ ested Visits Authorized [id number] Closed 08/02/2020 08/02/2021 1 1 Encounter Details Date Type Department Care Team Description 08/12/2020 Office Visit Department of Family Chaparro Payan Le sion Skin Chest [facility] ([facility], in [address] [address] [place] [phone] (Work) [phone] Social History Tobacco Use Types Packs/Day Years [...] How often do you attend jewish or buddhism 1 to 4 times per [...] Component Value Ref Test Analysis Performed At [facility] Range Method Time Signature 08/14/2020 JULIO [...] 0.1 cm light mcknight skin punch. [facility]. [facility]/nm Interpretation FINAL DIAGNOSIS 08/14/2020 MKTO A. Skin, [...] LAB SURG PATH ORDERABLES Performing Organization Address [facility]/State/ZIP Code Phon e Number [facility]- [address] [place] [address] [place] [address] System in [address] Lesion Excision and Closure (08/12/2020 11:00 [...] documented as of this encounter Care Teams District Associate Judge Relationship Specialty Start Date End Date Chaparro Payan P.A.-C. PCP - General 02/05/18 [address] [place] [phone] documented as of this encounter
--- OUTSIDE RECORDS SUMMARY | 2022-02-18 09:35 | XMS_ITS | Encounter Summary ---
:2000 Author Organization [facility] Address [address] [place] [address] Care Team Providers Name Role Phone Chaparro Payan P.A.-C. Primary Care Provider [phone] Reason for Visit Reason Comments Missed phone Encounter Details Date Type Department Care Team Description 09/10/2021 Clinical Communication Department of Americo Bear Mis sed phone Obstetrics and M.D. Gynecology in [address] [place] [address] [place] [address] [place], [place] [phone] (Work) [phone] Social History Tobacco Use Types Packs/Day Years [...] How often do you attend quaker or roman catholic 1 to 4 times per year [...] / REASON FOR CALL Communication (Pre-visit intake) Orthotist Prosthetist: no INFORMATION DISCUSSED Patient contacted for chart [...] documented as of this encounter Care Teams Retail Link Analyst Relationship Specialty Start Date End Date Chaparro Payan P.A.-C. PCP - General 02/05/[address] [place] [phone] documented as of this encounter
--- OUTSIDE RECORDS SUMMARY | 2022-02-18 09:35 | XMS_ITS | Encounter Summary ---
:2000 Author Organization [facility] Address [address] [place] [address] Care Team Providers Name Role Phone Chaparro Payan P.A.-C. Primary Care Provider [phone] Encounter Details Date Type Department Care Team Description 08/25/2021 Orders Only Department of Mónica Noe High Risk Obstetrics and J, R.N. (Primary Dx) Gynecology in [address] [place] [address] [place] [address] [place], [place] [phone] (Work) [phone] Social History Tobacco Use Types Packs/Day Years [...] 08/02/2020 relatives? How often do you attend congregational or samaritan 1 to 4 times per year 08/02/2020 services? Do you belong to any clubs or organizations such No 08/02/2020 as congregational groups, unions, fraternal or athletic groups, or [...] FOLLOW-UP AND OR GROWTH ABEL Exam Site: [facility] OB #[id number] Plurality: 1 OBHx: [G:(1)] ?F [...] Read by Wing Willett on 8:30:37 AM. Advertising Teacher: ??Wing Willett Thank You For This Referral Procedure Note Yvonne Sanchez M.D. - 09/16/2021Forma tting of this note might be different from the original. CITLALY HOLLAND OB Exam, 09/16/2021 EXAM INFORMATION Patient Name: CITLALY HOLLAND : 2000 Age: 20 yrs Sex: Female Ref Phys: AMERICO BEAR Exam Date: 09/16/2021 Procedure: US OB FOLLOW-UP AND OR GROWTH ABEL Exam Site: [facility] OB #[id number] Plurality: 1 OBHx: [G:(1)] F [...] Read by Wing Willett on 8:30:37 AM. Advertising Teacher: Wing Willett Thank You For This Referral Americo Bear M.D. IMG OB US PROCEDURES documented in this encounter Visit Diagnoses Diagnosis High Risk (HCC) - Primary High Risk (HCC) documented in this encounter Additional Health Concerns Assessment Noted Time PHQ-9 Depression Total Score: 8 10/13/2017 12:58 PM CD T documented as of this encounter Care Teams Surveillance Sensor Operator Relationship Specialty Start Date End Date Chaparro Payan P.A.-C. PCP - General 02/05/[address] [place] [phone] documented as of this encounter
--- OUTSIDE RECORDS SUMMARY | 2022-02-18 09:35 | XMS_ITS | Encounter Summary ---
:2000 Author Organization [facility] Address [address] [place] [address] Care Team Providers Name Role Phone Chaparro Payan P.A.-C. Primary Care Provider Reason for Referral Outpatient (Routine) - Closed Specialty Diagnoses / Procedures Referred By Contact Refer red To Contact Family Medicine Chaparro Payan P. A.-C. [address] [phone] Referral ID Status Reason Start Date Expiration Date Visits Requ ested Visits Authorized [id number] Closed 08/02/2020 08/02/[address] [place] Reason for Visit Reason Comments Annual Exam No concerns at this time. Appointment Request (Routine) - Closed Specialty Diagnoses / Procedures Referred By Contact Refer red To Contact Family Medicine Referral ID Status Reason Start Date Expiration Date Visits Requ ested Visits Authorized [id number] Closed 07/26/2020 07/26/2021 1 1 Encounter Details Date Type Department Care Team Description 08/02/2020 Comprehensive Visit Department of Shadia Payan Aortic Valve (HCC) (Primary Dx); Chaparro Rock P.A.-C. General Medical Examination Adult; [facility], [address] [place] [address] Pap Smear Examination; in [place], [place] Screening For Venereal Disease; [place] [phone] [address] [phone] [place], [place] (Work) [phone] Social History Tobacco Use [...] 08/02/2020 relatives? How often do you attend adventism or oriental orthodox 1 to 4 times per year 08/02/2020 services? Do you belong to any clubs or organizations such No 08/02/2020 as adventism groups, unions, fraternal or athletic groups, or [...] Comments Blood Pressure 98/64 08/02/2020 2:[address] [place] Pulse 84 08/02/2020 2:[address] [place] Temperature 36.9 ??C (98.4 ??F) 08/02/2020 2:[address] [place] Respiratory Rate 16 08/02/2020 2:[address] [place] Oxygen Saturation - - Inhaled Oxygen Concentration - - Weight 88.5 kg (195 lb 1.7 oz) 08/02/2020 2:[address] [place] Height 161.1 cm (5' 3.43) 08/02/2020 2:[address] [place] Body Mass Index 34.1 08/02/2020 2:[address] [place] documented in this encounter H&P Notes Chaparro [...] at a later date. Chaparro Payan P.A.-C. [address] [place] documented in this encounter Plan of Treatment Scheduled Referrals Name Type Priority Associated Diagnoses Order S [facility] Medicine Outpatient Referral Routine Expec sonal: office visit 08/02/2020 (clinic) (Approximate), Expires: 08/03/2023 documented as of this encounter Procedures Procedure Name Priority Date/Time Associated Diagnosis Comme nts CHLAMYDIA/GONORRHOE Routine 08/02/2020 3:32 PM Pap Smear Re sults for this AE AMPLIFIED RNA [address] [place] Examination procedure are in Screening For the results Venereal Disease section. THINPREP SCREEN Routine 08/02/2020 3:30 PM Pap Smear Result s for this [address] [place] Examination procedure are in Screening For the results Venereal Disease section. documented in this encounter Results Chlamydia / Gonorrhoeae Amplified RNA (08/02/2020 3:[address] [place]) Patholo gist Method Time Signature Source Thin Prep 08/07/2020 DTL Vial, 5:[address] [place] Cervix/Endoc ervix Chlamydia Negative Negative 08/07/2020 DTL trachomatis 5:[address] [place] amplified RNA Source Thin Prep 08/07/2020 DTL Vial, 5:[address] [place] Cervix/Endoc ervix Neisseria Negative Negative 08/07/2020 DTL gonorrhoeae 5:[address] [place] amplified RNA Specimen Anatomical Collection Method Collection Time Receive d Time (Source) Location / / Volume Laterality Varies 08/02/2020 3:32 PM (Cervix/Endocerv [address] [place] 10:15 AM CS T ix) Chaparro Payan P.A.-C. LAB MICROBIOLOGY - GENERAL O RDERABLES Performing Organization Address City/State/ZIP Code Phon e Number [facility] - [address] [place] [address] [facility] [place] [place] [address] Laboratories-[facility] 200 [facility] ThinPrep Screen (08/02/2020 3:[address] [place]) Component Value Ref Test Analysis Performed Pathologis [...] AM tives CDT Report BRIAN Ward(ASCP) 08/13/2020 [facility] electronically I verify that I have [...] Laterality Varies 08/02/2020 3:30 PM 9:06 (Cervix/Endocerv [address] [place] AM [address] [place] ix) Narrative This result has an attachment that is no t available. Chaparro Payan P.A.-C. LAB PAP PATHDX ORDERABLES Performing Organization Address City/State/ZIP Code Phon e Number [facility]- [facility] [address] [place] [address] [facility] [address] [place] [address] documented in this encounter Visit Diagnoses Diagnosis Bicuspid Aortic Valve (HCC) - Primary General Medical Examination Adult Pap Smear Examination Screening For Venereal Disease Nevus documented in this encounter Additional Health Concerns Assessment Noted Time PHQ-9 Depression Total Score: 8 10/13/2017 12:58 PM CD T documented as of this encounter Care Teams Real Estate Rep Relationship Specialty Start Date End Date Chaparro Payan P.A.-C. PCP - General 02/05/[address] [place] [phone] documented as of this encounter
--- OUTSIDE RECORDS SUMMARY | 2022-02-18 09:35 | XMS_ITS | Encounter Summary ---
:2000 Author Organization [facility] Address [address] [place] [address] Care Team Providers Name Role Phone Chaparro Payan P.A.-C. Primary Care Provider [phone] Encounter Details Date Type Department Care Team Description 09/16/2021 Hospital Encounter Department of Americo Bear [facility] Obstetrics and MJeronimo ([facility]) Gynecology in [address] [place] [address] [place] [address] [place], [place] [phone] (Work) [phone] Social History Tobacco Use Types Packs/Day Years [...] How often do you attend buddhist or gnosticist 1 to 4 times per [...] mg tablet Take 1 tablet by 0 bqcjuba-To-yjho-FA (VINATE mouth daily. ONE) 60 mg iron-1 [...] FOLLOW-UP AND OR GROWTH ABEL Exam Site: [facility] OB #139 Plurality: 1 OBHx: [...] Read by Wing Willett on 8:30:37 AM. Patient Relations Specialist: ??Wing Willett Thank You For This Referral Procedure Note Yvonne Sanchez M.D. - 09/16/2021Forma tting of this note might be different from the original. CITLALY HOLLAND OB Exam, 09/16/2021 EXAM INFORMATION Patient Name: CITLALY HOLLAND : 2000 Age: 20 yrs Sex: Female Ref Phys: AMERICO BEAR Exam Date: 09/16/2021 Procedure: US OB FOLLOW-UP AND OR GROWTH ABEL Exam Site: [facility] OB #139 Plurality: 1 OBHx: [...] by Wing Willett on 022 8:30:37 AM. Patient Relations Specialist: Wing Willett Thank You For This Referral Americo Bear M.D. IMG OB US PROCEDURES documented in this encounter Visit Diagnoses Diagnosis High Risk (HCC) documented in this encounter Additional Health Concerns Assessment Noted Time PHQ-9 Depression Total Score: 8 10/13/2017 12:58 PM CD T documented as of this encounter Care Teams Grazing Aide Relationship Specialty Start Date End Date Chaparro Payan P.A.-C. PCP - General 02/05/18 [address] [place] [phone] documented as of this encounter
--- OUTSIDE RECORDS SUMMARY | 2022-02-18 09:35 | XMS_ITS | Clinical Summary ---
:2000 Author Organization [facility] Address [address] [place] [address] Care Team Providers Name Role Phone Chaparro Payan P.A.-C. Primary Care Provider [phone] Source Comments Patient records contain information from all sites at [facility]. For routine questions regarding patient records, call [phone] during business hours, M-F 8:00 AM - 5:00 PM Central Time. Record requests for emergency care only can be directed to [phone] at any time.[facility] Allergies Active Allergy Reactions Severity Noted Date Comments Penicillins Rash 12/19/2007 Medications Medication Sig Dispensed Refills Start Date End Date Status ibuprofen Take 800 mg by 0 Activ e (ADVIL,MOTRIN) 200 mg mouth. tablet albuterol 90 Inhale 2 puffs as 0 09/03/2021 Active mcg/actuation inhaler needed. Take 1 tablet by 0 Act navarro oyqzbhc-Zk-cdwx-FA mouth daily. (VINATE ONE) 60 mg iron-1 mg per tablet Active Problems Patient Care Coordination Note Formatting of this note might be differe nt from the original. Spouse: no Children: no Work: no AYAZ on file for mom Amy ([phone]) Problem Noted Date Overweight Body Mass Index [...] How often do you attend restoration or mosque 1 to 4 times per [...] CDT Respiratory Rate 16 08/02/2020 2:23 PM FREEZER MACHINE OPERATOR Oxygen Saturation 100% 09/16/2021 8:36 AM CDT [...] Address T ype Group Dates PREFERREDONE PREFERREDONE [id number] 2019-Pre [phone] PPO ADMINISTRATIVE ADMINISTRATIVE sent [phone] [place] [phone] Care Teams Study Abroad Advisor Relationship Specialty Start Date End Date Chaparro Payan P.A.-C. PCP - General 02/05/18 [address] [place] [phone]
--- OUTSIDE RECORDS SUMMARY | 2022-02-18 09:35 | XMS_ITS | Encounter Summary ---
:2000 Author Organization [facility] Address [address] [place] [address] Care Team Providers Name Role Phone Chaparro Payan P.A.-C. Primary Care Provider [phone] Encounter Details Date Type Department Care Team Description 07/12/2020 Admin Visit Department of Family Medicine, [address] [address] [facility] [phone] Social History Tobacco Use Types Packs/Day Years [...] 08/02/2020 relatives? How often do you attend denominational or anabaptist 1 to 4 times per year 08/02/2020 services? Do you belong to any clubs or organizations such No 08/02/2020 as denominational groups, unions, fraternal or athletic groups, or [...] COVID19 Pending 07/12/2020 07/12/2020 07/13/2020 1:56 AM DESKTOP PUBLISHING OPERATOR Assessment Noted Time PHQ-9 Depression Total Score: 8 10/13/2017 12:58 PM CD T documented as of this encounter Care Teams Denier Control Operator Relationship Specialty Start Date End Date Chaparro Payan P.A.-C. PCP - General 02/05/[address] [place] [phone] documented as of this encounter
--- OUTSIDE RECORDS SUMMARY | 2022-02-18 09:35 | XMS_ITS | Encounter Summary ---
:2000 Author Organization [facility] Address [address] [place] [address] Care Team Providers Name Role Phone Chaparro Payan P.A.-C. Primary Care Provider [phone] Reason for Visit Reason Onset Date Comments Left Without Being Seen 09/16/2021 Appointment Request (Routine) - Authorized Specialty Diagnoses / Procedures Referred By Contact Refer red To Contact Maternal and Diagnoses Bicuspid Aortic Valve (HCC) Abnormal Ultrasound Jay Kebede, [facility] Audra GillilandNGurdeep [address] [place] [address] Referral ID Status Reason Start Date Expiration Date Visits V isits Requested Authorized [id number] Authorized 08/25/2021 08/25/2022 3 3 Encounter Details Date Type Department Care Team Description 09/16/2021 Comprehensive Visit Department of Shelbi Tse Proce dure And Obstetrics and M.S., CGC Treatment Not Gynecology in [address] [place] [address] Carried Out Due To [place], [place] Patient Leaving [address] [place] [phone] Prior To Being Seen [place], [place] [phone] By [facility] [phone] (Work) Provider (Primary [phone] Dx) (Fax) Social History Tobacco Use Types [...] How often do you attend restorationism or baptism 1 to 4 times per year 08/02/2020 [...] documented as of this encounter Care Teams Hot Mill Shearer Relationship Specialty Start Date End Date Chaparro Payan P.A.-C. PCP - General 02/05/[address] [place] [phone] documented as of this encounter
--- OUTSIDE RECORDS SUMMARY | 2022-02-18 09:35 | XMS_ITS | Clinical Summary ---
:2000 Author Organization [facility] [facility] [place] [address] Care Team Providers Name Role Phone Chaparro [...] and a bicuspid aortic valve. [facility] Estimated Date of Delivery Comments Yes [...] 157.5 cm (5' 2) 07/26/2020 1:58 AM REVENUE ENFORCEMENT AGENT Body Mass Index 35.43 07/26/2020 1:58 AM REVENUE ENFORCEMENT AGENT Plan of Treatment Health Maintenance Due Date [...] Type Group BLUE CROSS BLUE CROSS OF [id number] 2015-Present [address] [place] [address] PREFERRED ONE PREFERRED ONE [id number] 2019-Present [address] [place] [address] [phone] [employer] [address] (Home) [place] [address] [address] Personal/Famil Mother [phone] (Home) [address] [place] [address] [employer] Employer 05/31/2000 [phone] [address] [employer] 4 [phone] (Home) [place] [address] [employer] Occ Employer 04/10/1911 [phone] ATTN H [employer] [id number] RESOURCES (Home) [address] [place] [address] [phone] [address] (Work) [place] [phone] Care Teams Director Statistical Programming Relationship Specialty Start Date End Date Chaparro Payan PA PCP - General 09/24/[address] [place] [address] [place] [phone]
--- OUTSIDE RECORDS SUMMARY | 2022-02-18 09:35 | XMS_ITS | Encounter Summary ---
:2000 Author Organization [facility] Address [address] [place] [address] Care Team Providers Name Role Phone Chaparro Payan P.A.-C. Primary Care Provider [phone] Reason for Referral Outpatient (Routine) - Closed Specialty Diagnoses / Procedures Referred By Contact Refer red To Contact Diagnoses Bicuspid Aortic Valve (HCC) Americo Bear M.D. [facility] Procedures Echo Transthoracic (TTE) - Adult Congenital [address] [place], [place] [address] Referral ID Status Reason Start Date Expiration Date Visits Requ ested Visits Authorized [id number] Closed 09/11/2021 09/11/2022 1 1 Reason for Visit Outpatient (Routine) - Closed Specialty Diagnoses / Procedures Referred By Contact Refer red To Contact Diagnoses Bicuspid Aortic Valve (HCC) Americo Bear M.D. [facility] Procedures Echo Transthoracic (TTE) - Adult Congenital [address] [place], [place] [phone] Referral ID Status Reason Start Date Expiration Date Visits Requ ested Visits Authorized [id number] Closed 09/11/2021 09/11/2022 1 1 Encounter Details Date Type Department Care Team Description 09/16/2021 Hospital Encounter Department of Americo Bear Bicuspi d Aortic Cardiovascular Diseases Silvio Valve (HCC) in [facility] marya [address] [facility] [address] [place] [phone] Social History Tobacco Use Types Packs/Day Years [...] 08/02/2020 relatives? How often do you attend rastafarian or moravian 1 to 4 times per year 08/02/2020 services? Do you belong to any clubs or organizations such No 08/02/2020 as rastafarian groups, unions, fraternal or athletic groups, or [...] mg tablet Take 1 tablet by 0 fcyxkhg-Uu-unpq-FA (VINATE mouth daily. ONE) 60 mg iron-1 [...] COLOR AND DOPPLER (09/16/2021 1:54 PM CDT) [facility] gist Method Time Signature Ejection Fraction 64 [...] For the complete report, see the Order-L [employer] Documents. Final Impressions 1. Bicuspid aortic valve [...] documented as of this encounter Care Teams Cold Storage Worker Relationship Specialty Start Date End Date Chaparro Payan P.A.-C. PCP - General 02/05/[address] [place] [phone] documented as of this encounter
--- OUTSIDE RECORDS SUMMARY | 2022-02-18 09:35 | XMS_ITS | Encounter Summary ---
:1998 Author Organization [facility] Address [address] [place] [address] Care Team Providers Name Role Phone Chaparro Payan P.A.-C. Primary Care Provider [phone] Reason for Referral Outpatient (Routine) - Closed Specialty Diagnoses / Procedures Referred By Contact Refer red To Contact Diagnoses Bicuspid Aortic Valve (HCC) Americo Bera M.D. [facility] Procedures Echo Transthoracic (TTE) - Adult Congenital [address] [place] [phone] Referral ID Status Reason Start Date Expiration Date Visits Requ ested Visits Authorized [id number] Closed 09/11/2021 09/11/2022 1 1 Reason for Visit Appointment Request (Routine) - Authorized Specialty Diagnoses / Procedures Referred By Contact Refer red To Contact Maternal and Diagnoses Bicuspid Aortic Valve (HCC) Abnormal Ultrasound [facility] Sonya Gilliland.NGurdeep [address] [place] [address] Referral ID Status Reason Start Date Expiration Date Visits V isits Requested Authorized [id number] Authorized 08/25/2021 08/25/2022 3 3 Encounter Details Date Type Department Care Team Description 09/16/2021 Routine Department of Americo Bear Bicuspid Aortic Valve Obstetrics and Silvio (HCC) (Primary Dx) Gynecology in [address] [place], [place] [address] [place] [phone] [place], [place] [phone] (Work) [phone] Social History Tobacco Use Types Packs/Day Years [...] 08/02/2020 relatives? How often do you attend jainism or faith 1 to 4 times per year 08/02/2020 services? Do you belong to any clubs or organizations such No 08/02/2020 as jainism groups, unions, fraternal or athletic groups, or [...] COLOR AND DOPPLER (09/16/2021 1:54 PM CDT) [facility] Method Time Signature Ejection Fraction 64 [...] original. For the complete report, see the First To File-L Lend[employer] Documents. Final Impressions 1. Bicuspid aortic valve [...] documented as of this encounter Care Teams Distribution District Supervisor Relationship Specialty Start Date End Date Chaparro Payan P.A.-C. PCP - General 02/05/[address] [place] [phone] documented as of this encounter
--- OUTSIDE RECORDS SUMMARY | 2022-02-18 09:35 | XMS_ITS | Encounter Summary ---
:2000 Author Organization [facility] Address [address] [place] [address] Care Team Providers Name Role Phone Chaparro Payan P.A.-C. Primary Care Provider [phone] Reason for Referral Specialty Diagnoses / Procedures Referred By Contact Refer red To Contact Chaparro Payan P. A.-C. [facility] Region [address] [place] [address] Referral ID Status Reason Start Date Expiration Date Visits Requ ested Visits Authorized CAL RECEPTIONIST Encounter Details Date Type Department Care Team Description 07/30/2021 Orders Only [facility] Chaparro Payan P.A.-C. [address] [place] [phone] (Wo rk) Social History Tobacco [...] How often do you attend faith or episcopalian 1 to 4 times per [...] documented as of this encounter Care Teams Miner Pick Relationship Specialty Start Date End Date Chaparro Payan P.A.-C. PCP - General 02/05/[address] [place] [phone] documented as of this encounter
--- OUTSIDE RECORDS SUMMARY | 2022-02-18 09:35 | XMS_ITS | Encounter Summary ---
:1998 Author Organization [facility] Address [address] [place] [address] Care Team Providers Name Role Phone Chaparro Payan P.A.-C. Primary Care Provider [phone] Reason for Visit Reason Onset Date Comments Outpatient COVID-19 Testing 07/12/2020 Encounter Details Date Type Department Care Team Description 07/12/2020 External Outreach Department of Family Wood Guzman Contact With And Medicine, [facility] Abdulkadir Winter D.O. (Suspected) Exposure Building, in [address] To COVID-19 (Primary [place], [place] Dx) [address] [facility] [address] [place], [place] [phone] (Work) [phone] Social History Tobacco Use Types Packs/Day Years [...] 08/02/2020 relatives? How often do you attend caodaism or hinduism 1 to 4 times per year 08/02/2020 services? Do you belong to any clubs or organizations such No 08/02/2020 as caodaism groups, unions, fraternal or athletic groups, or [...] PM CST Encounter created for COVID-19 screening. HANDISE FLOW TEAM MEMBER documented in this encounter Plan of Treatment Not on filedocumented as of this encounter Procedures Procedure Name Priority Date/Time Associated Diagnosis Comme nts SARS CORONAVIRUS-2 Routine 07/12/2020 4:07 PM Contact With And Results for this RNA, V MERCHANDISE FLOW TEAM MEMBER (Suspected) Exposure procedu re are in To COVID-19 the results section. documented in this encounter Results SARS Coronavirus-2 RNA, V Asymptomatic (07/12/2020 4:07 PM MERCHANDISE FLOW TEAM MEMBER) [facility] Method Time Signature SARS-CoV-2 Swab, 07/13/2020 [facility] Specimen Nasopharynx 1:56 AM MERCHANDISE FLOW TEAM MEMBER Source SARS CoV-2 Undetected Undetected 07/13/2020 [facility] RNA, TMA 1:56 AM MERCHANDISE FLOW TEAM MEMBER Comment: SARS-CoV-2 RNA absent. This result does not rule out COVID-19 in the patient, as the sensitivity of the test depends o n the timing of the specimen collection and the quality of the specim en. Result should be correlated with patient's history and clinical presentat ion. ----ADDITIONAL INFORMATION---- This molecular amplification test was pe rformed using the Aptima SARS-CoV-2 assay ([employer] on the [employer] tem under emergency use authorization (EUA) by the U.S. Food and Drug Administ ration. Fact sheets for this EUA assay can be fo und at the following links: For Healthcare Providers: https://www.fd a.gov/media/580171/download For Patients: https://www.fda.gov/media/ 162053/download Specimen Anatomical Collection Method Collection Time Receive d Time (Source) Location / / Volume Laterality Varies 07/12/2020 4:07 PM 02/12/202 1 8:44 (Nasopharynx) MERCHANDISE FLOW TEAM MEMBER PM MERCHANDISE FLOW TEAM MEMBER Wood Guzman D.O. LAB MICROBIOLOGY - GENERAL O JIMMY Performing Organization Address City/State/ZIP Code Phon e Number [facility]- [address] [place] [phone] [place] [address] [place] [address] System in [address] documented in this encounter Visit Diagnoses Diagnosis Contact With And (Suspected) Exposure To COVID-19 - Primary documented in this encounter Additional Health Concerns Infection Onset Date Last Indicated Resolved Time COVID19 Pending 07/12/2020 07/12/2020 07/13/2020 1:56 AM MERCHANDISE FLOW TEAM MEMBER Assessment Noted Time PHQ-9 Depression Total Score: 8 10/13/2017 12:58 PM CD T documented as of this encounter Care Teams Farmworker Pullet Farm Relationship Specialty Start Date End Date Chaparro Payan P.A.-C. PCP - General 02/05/[address] [place] [phone] documented as of this encounter
--- OUTSIDE RECORDS SUMMARY | 2022-02-18 09:35 | XMS_ITS | Encounter Summary ---
:1998 Author Organization [facility] Address [address] [place] [address] Care Team Providers Name Role Phone Chaparro Payan P.A.-C. Primary Care Provider [phone] Reason for Referral Specialty Diagnoses / Procedures Referred By Contact Refer red To Contact [facility] winnie [facility] Region [address] [place] [phone] Referral ID Status Reason Start Date Expiration Date Visits Requ ested Visits Authorized Reason for Visit Appointment Request (Routine) - Closed Specialty Diagnoses / Procedures Referred By Contact Refer red To Contact Family Medicine Referral ID Status Reason Start Date Expiration Date Visits Requ ested Visits Authorized [id number] Closed 01/29/2021 01/29/2022 1 1 Encounter Details Date Type Department Care Team Description 02/07/[address] [facility] er For COVID-19 Medicine, [place] [facility], in [facility] (Primar y Dx) [place] [address] [place] [phone] Social History Tobacco Use Types Packs/Day [...] 08/02/2020 relatives? How often do you attend gnosticism or oriental orthodox 1 to 4 times per year 08/02/2020 services? Do you belong to any clubs or organizations such No 08/02/2020 as gnosticism groups, unions, fraternal or athletic groups, or [...] documented as of this encounter Care Teams Renal Case Manager Relationship Specialty Start Date End Date Chaparro Payan P.A.-C. PCP - General 02/05/[address] [place] [phone] documented as of this encounter
--- OUTSIDE RECORDS SUMMARY | 2022-02-18 09:36 | XMS_ITS | Encounter Summary ---
:1998 Author Organization [facility] Address [address] [place] [address] Care Team Providers Name Role Phone Chevy, Miranda Guadalupe APRN C.N.P., M.S.N. Primary Care Pr ovider Encounter Details Date Type Department Care Team Description 10/13/2017 Hospital Encounter Department of Radiology Amrita Payan, Pain Back in [facility] PBettieAEnoch [address] [place] [address] [place], [place] [phone] (Wo rk) Social History Tobacco Use [...] How often do you attend yazdanism or confucianist 1 to 4 times per year 08/02/2020 [...] documented as of this encounter Care Teams Education Spec Relationship Specialty Start Date End Date Reece, Miranda Guadalupe APRN, C.N.P., PCP - General 02/04/18 M.S.N. [address] [place] [address] documented as of this encounter
--- OUTSIDE RECORDS SUMMARY | 2022-02-18 09:36 | XMS_ITS | Encounter Summary ---
:1998 Author Organization [facility] Address [address] [place] [address] Care Team Providers Name Role Phone Chaparro Payan P.A.-C. Primary Care Provider [phone] Encounter Details Date Type Department Care Team Description 03/28/2020 Admin Visit Department of Family Medicine, [address] [phone] [facility] [phone] Social History Tobacco Use Types Packs/Day Years [...] How often do you attend pentecostal or yarsanism 1 to 4 times per year 08/02/2020 [...] documented as of this encounter Care Teams Hydraulic Oil Tool Operator Relationship Specialty Start Date End Date Chaparro Payan P.A.-C. PCP - General 02/05/[address] [place] [phone] documented as of this encounter
--- OUTSIDE RECORDS SUMMARY | 2022-02-18 09:36 | XMS_ITS | Encounter Summary ---
:1998 Author Organization [facility] Address [address] [place] [address] Care Team Providers Name Role Phone Reece, Miranda Guadalupe APRN C.N.PBettie, M.S.N. Primary Care Pr ovider Reason for Referral Outpatient (Routine) - Closed Specialty Diagnoses / Referred By Contact Referred To Contact Procedures Cardiovascular Diseases / Diagnoses Bicuspid Aortic Valve (HCC) Phyllis Ramírez, [facility] Cardiovascular Disease Silvio [address] [place] [address] Referral ID Status Reason Start Date Expiration Date Visits Requ ested Visits Authorized [id number] Closed 11/03/2017 11/03/2018 1 1 Encounter Details Date Type Department Care Team Description 11/03/2017 Orders Only Department of [facility] Phyllis Ramírez, Bic uspid Aortic Valve Medicine, Oren Anguiano (HCC) (Primary Dx) Clinic, in [address] [facility] [address] [place] [address] [phone] (Work) [phone] Social History Tobacco Use Types Packs/Day Years [...] How often do you attend scientologist or faith 1 to 4 times per [...] documented as of this encounter Care Teams Middle School Counselor Relationship Specialty Start Date End Date Miranda Reece APRN, C.N.P., PCP - General 02/04/18 M.S.N. [address] [place] [phone] documented as of this encounter
--- OUTSIDE RECORDS SUMMARY | 2022-02-18 09:36 | XMS_ITS | Encounter Summary ---
:2000 Author Organization [facility] Address [address] [place] [address] Care Team Providers Name Role Phone Unavailable Primary Care Provider Unavailable Encounter Details Date Type Department Care Team Description 10/09/2016 Hospital Encounter HX NO MAPPING Casper Payan P.A.-C. [address] [place] [phone] (Wo rk) Social History Tobacco Use [...] often do you attend oriental orthodox or yazidism 1 to 4 times per [...] Summary-Paper Based CODING DATE: 10/20/2016 FINAL [facility] STATUS: * Discharged to Home or Self [...] HOLLY Date Saved: 10/20/2016 01:24 pm Source: [facility] Document Id: [id number] documented in this encounter Plan of Treatment Not on filedocumented as of this encounter Visit Diagnoses Not on filedocumented in this encounter
--- OUTSIDE RECORDS SUMMARY | 2022-02-18 09:36 | XMS_ITS | Encounter Summary ---
:2000 Author Organization [facility] Address [address] [place] [address] Care Team Providers Name Role Phone Unavailable Primary Care Provider Unavailable Encounter Details Date Type Department Care Team Description 04/30/2015 Hospital Encounter HX NO MAPPING Miranda Reece APRN, C.N.P., M. S.N. [address] [place], [place] [phone] (Wo rk) Social History [...] How often do you attend spiritism or buddhism 1 to 4 times per [...] Historical Provider Ser - 04/30/2015 11:59 PM QUALITY ASSURANCE PRACTICE MANAGER Coding Summary-Paper Based CODING DATE: 05/13/2015 FINAL [facility] STATUS: * Discharged to Home or Self [...] HOLLY Date Saved: 05/13/2015 10:25 am Source: [facility] Document Id: [id number] documented in this encounter Plan of Treatment Not on filedocumented as of this encounter Visit Diagnoses Not on filedocumented in this encounter
--- OUTSIDE RECORDS SUMMARY | 2022-02-18 09:36 | XMS_ITS | Encounter Summary ---
:2000 Author Organization [facility] Address [address] [place] [address] Care Team Providers Name Role Phone Unavailable Primary Care Provider Unavailable Encounter Details Date Type Department Care Team Description 01/30/2011 Hospital Encounter HX [facility] Elmo Kitchen, BEL, C.N.P., D. N.P. [address] [place], [place] [address] (Wo rk) Social History [...] often do you attend oriental orthodox or catholic 1 to 4 times per [...] 01/30/2011 1:23 PM CD T Growth Chart: [facility] (Girls, 2-20 Years) documented in this encounter Progress Notes Lisa Kitchen APRN, C.N.P. - 01/30/2011 12:00 AM CDT [id number] CHIEF COMPLAINT / REASON FOR VISIT 12 [...] dad and patient as documented on the [facility] clinic visit sheet which will be [...] CRANDALL CNP On: 02/06/2011 02:26 pm Source: [facility] MHSDOLBEYNONRADSYS Document Id: [id number] documented in this encounter Procedure Notes Conversion, Historical Provider Ser - 01/30/2011 1:23 PM CDT Vision Testing Vision Testing Entered On: 01/30/2011 13:25 CDT Performed On: 01/30/2011 13:23 CDT by CHARO TENORIO Vision Testing Corrective Lenses: Glasses Eye, Right w/o Correction: 20/80 Eye, Left w/o Correction: 20/50 CHARO TENORIO - 01/30/2011 13:23 CDT Source: [facility] POWERCHART Document Id: [id number] CDT!5 documented in this encounter Miscellaneous Notes Miscellaneous - Lisa Kitchen APRN, C.N.P. - 01/30/2011 3:09 PM CDT Ambulatory Patient Summary [address] [address] Visit Information Name: CITLALY HOLLAND [...] No Appointments found Your Goals/Additional instructions: Source: [employer] Document Id: [id number] Electronically signed by Conversion, [facility] Metal Engraver [id number] at 11/01/2016 2:47 PM CDT Miscellaneous - Lisa Kitchen, BEL, C.N.P. - 01/30/2011 3:09 PM CDT [place] [address] Visit Information Name: CITLALY HOLLAND Current Date: [...] to the patient and/or family, guardian/caregiver. Source: [employer] Document Id: [id number] Miscellaneous - Conversion, Historical Provider Ser - 01/30/2011 1:23 PM CDT Pediatric Carbide Powder Processor Intake/History Document Has Been Updated Pediatric Carbide Powder Processor Intake/History Entered On: 01/30/2011 13:24 CDT Performed [...] ; Reviewed Date: 01/30/2011 13:27 CDT Source: [facility] POWERCHART Document Id: [id number] CDT!3 documented in this encounter Plan of Treatment Not on filedocumented as of this encounter Visit Diagnoses Not on filedocumented in this encounter
--- OUTSIDE RECORDS SUMMARY | 2022-02-18 09:36 | XMS_ITS | Encounter Summary ---
:1998 Author Organization [facility] Address [address] [place] [address] Care Team Providers Name Role Phone Chaparro Payan P.A.-C. Primary Care Provider [phone] Encounter Details Date Type Department Care [...] 08/02/2020 relatives? How often do you attend episcopalian or sabianist 1 to 4 times per year 08/02/2020 services? Do you belong to any clubs or organizations such No 08/02/2020 as episcopalian groups, unions, fraternal or athletic groups, or [...] no amblyopia CDM Reports - EYEGEN Id: [id number] Status: Fnl documented in this encounter Plan of Treatment Not on filedocumented as of this encounter Visit Diagnoses Not on filedocumented in this encounter Additional Health Concerns Infection Onset Date Last Indicated Resolved Time COVID19 Pending 02/28/2020 02/28/2020 02/29/2020 4:25 AM CDT COVID19 Pending 03/27/2020 03/28/2020 03/29/2020 10:23 PM CDT COVID19 Pending 06/23/2020 06/23/2020 06/24/2020 2:18 PM ADJUNCT FACULTY MATHEMATICS DEPARTMENT COVID19 Pending 07/12/2020 07/12/2020 07/13/2020 1:56 AM ADJUNCT FACULTY MATHEMATICS DEPARTMENT documented as of this encounter Care Teams Poultry Hanger Relationship Specialty Start Date End Date Chaparro Payan P.A.-C. PCP - General 02/05/[address] [place] [phone] documented as of this encounter
--- OUTSIDE RECORDS SUMMARY | 2022-02-18 09:36 | XMS_ITS | Encounter Summary ---
:1998 Author Organization [facility] Address [address] [place] [address] Care Team Providers Name Role Phone Unavailable Primary Care Provider Unavailable Encounter Details Date Type Department Care Team Description 04/17/2011 Hospital Encounter HX [facility] FAMILY[facility] Norman Payan P.A.-C. [address] [place] [phone] (Wo rk) Social History Tobacco [...] 08/02/2020 relatives? How often do you attend taoism or jainism 1 to 4 times per year 08/02/2020 services? Do you belong to any clubs or organizations such No 08/02/2020 as taoism groups, unions, fraternal or athletic groups, or [...] (97 lb 7.1 oz) 04/17/2011 3:56 PM CERTIFIED RETINAL ANGIOGRAPHER Height 149.2 cm (4' 10.74) 04/17/2011 3:56 PM CERTIFIED RETINAL ANGIOGRAPHER Body Mass Index 19.86 04/17/2011 3:56 PM CERTIFIED RETINAL ANGIOGRAPHER Body Mass Index Percentile 69.40 % 04/17/2011 3:56 PM CS T Growth Chart: [facility] (Girls, 2-20 Years) documented in this encounter Progress Notes Mikael Payan P.A.-C. - 04/17/2011 12:00 AM CST [id number] CHIEF COMPLAINT/ REASON FOR VISIT Sport's history [...] recommend that she follow up with an public affairs specialist for further evaluation and treatment of this and otherwise she may participate in sports without any restrictions. If there are any questions or problems she will let us know, otherwise follow up as needed. TLR/kln Signed [facility] Electronically Signed By: MIKAEL PAYAN PA-C On: 04/20/2011 01:49 PM Source: [facility] MHSDOLBEYNONRADSYS Document Id: [id number] IFIED RETINAL ANGIOGRAPHER documented in this encounter Procedure Notes Conversion, Historical Provider Ser - 04/17/2011 4:36 PM CST Vision Testing Vision Testing Entered On: 04/17/2011 16:36 CERTIFIED RETINAL ANGIOGRAPHER Performed On: 04/17/2011 16:36 CERTIFIED RETINAL ANGIOGRAPHER by VIVIAN PEDERSEN LPN Vision Testing Corrective Lenses : None Eye, Right w/o Correction : 20/50 Eye, Left w/o Correction : 20/70 NUVIALACHO CroweSesar Castrejon LPN - 04/17/2011 16:36 CERTIFIED RETINAL ANGIOGRAPHER [facility] Document Id: [id number] CERTIFIED RETINAL ANGIOGRAPHER!5 documented in this encounter Miscellaneous Notes Miscellaneous - Mikael Payan P.A.-C. - 04/17/2011 4:28 PM CST Ambulatory Patient Summary [address] [address] Visit Information Name: CITLALY HOLLAND Current Date: [...] No Appointments found Your Goals/Additional instructions: [facility] Document Id: [id number] IFIED RETINAL ANGIOGRAPHER Miscellaneous - Mikael Payan P.A.-C. - 04/17/2011 4:28 PM CST Ambulatory Depart Summary [address] [address] Visit Information Name: CITLALY HOLLAND Current Date: [...] for Pain / Fever Additional Information: Source: [facility] POWERCHART Document Id: [id number] IFIED RETINAL ANGIOGRAPHER Miscellaneous - Conversion, Historical Provider Ser - 04/17/2011 3:56 PM CERTIFIED RETINAL ANGIOGRAPHER Pediatric Blueprinter Intake/History Pediatric Blueprinter Intake/History Entered On: 04/17/2011 15:59 CERTIFIED RETINAL ANGIOGRAPHER Performed On: 04/17/2011 15:56 CERTIFIED RETINAL ANGIOGRAPHER by VIVIAN PEDERSEN LPN Intake Peripheral Pulse Rate : 84/min Respiratory Rate : 20/min Systolic Blood Pressure : 106mmHg Diastolic Blood Pressure : 52mmHg NIBP Mean : 70mmHg BP Location : Right upper extremity Heart Rhythm : Regular VIVIAN PEDERSEN LPN - 04/17/2011 15:59 CERTIFIED RETINAL ANGIOGRAPHER Chief Complaint : Sports physical Ambulatory Intake Additional Information : Arm span:145 cm Temperature Oral : 36.7C(Converted to: 98.1DegF) Height : 149.2cm(Converted to: 4ft 11inch(es), 58.74inch(es)) Actual Weight : 44.2kg(Converted to: 97lb 7oz) Weight Source : Standing scale Dosing Weight Clinic : 44.20kg Clinic BSA : 1.35 Body Mass Index : 19.86kg/m2 [facility]EN [facility] - 04/17/2011 15:56 CERTIFIED RETINAL ANGIOGRAPHER Subjective Pain Symptoms : No VIVIAN PEDERSEN PEDIATRICIAN/MEDICAL DOCTOR - 04/17/2011 15:56 CERTIFIED RETINAL ANGIOGRAPHER Dependent Habits Tobacco Use/Currently Using : No Tobacco Use/Last 12 months : No Smoking Status : Never smoker Alcohol Use : No [facility] - 04/17/2011 15:56 CERTIFIED RETINAL ANGIOGRAPHER Caffeine Use Grid Caffeine Use : Current Type : Chocolate, Soft drinks Frequency : Monthly Amount : 2 times per month Last Use : today [facility] 04/17/2011 15:56 CERTIFIED RETINAL ANGIOGRAPHER Recreational Drug Use Grid Drug Use : None [facility] 04/17/2011 15:56 CERTIFIED RETINAL ANGIOGRAPHER Allergy Allergies (Active) penicillin Estimated Onset Date: Unspecified ; Created By: CHARO TENORIO; Reaction Status: Active ; Category: Drug ; Substance: penicillin ; Type: Allergy ; Severity: Mild ; Updated By: CHARO TENORIO; Source: Family ; Reviewed Date: 04/17/2011 15:52 CERTIFIED RETINAL ANGIOGRAPHER Source: [facility] POWERCHART Document Id: [id number] CERTIFIED RETINAL ANGIOGRAPHER!9 documented in this encounter Plan of Treatment Not on filedocumented as of this encounter Visit Diagnoses Not on filedocumented in this encounter
--- OUTSIDE RECORDS SUMMARY | 2022-02-18 09:36 | XMS_ITS | Encounter Summary ---
:2000 Author Organization [facility] Address [address] [place] [address] Care Team Providers Name Role Phone Chaparro Payan P.A.-C. Primary Care Provider [phone] Reason for Visit Reason Comments COVID Inquiry Encounter Details Date Type Department Care Team Description 07/12/2020 Clinical Communication Department of KATHIE Sewell [facility], [address] [address] [place], [place] [phone] [address] (Work) [phone] Social History Tobacco Use Types Packs/Day Years [...] 08/02/2020 relatives? How often do you attend mandaeism or gnosticism 1 to 4 times per year 08/02/2020 services? Do you belong to any clubs or organizations such No 08/02/2020 as mandaeism groups, unions, fraternal or athletic groups, or [...] LABORATORY CONFIRMED case ofCOVID-19?: Yes exposure noted. [place] patient, instruct to quarantine, testing indicated (End Screening) Testing Recommendation Endpoint Is testing recommended? : Recommended to test Plan: Endpoint recommendation: Testing indicated, advised to be swabbed for COVID-19 Only , sent to [place] located at [address] [place] [address]. The entrance is on the north side of the building. You must call [phone] during the hours of 7am to 6 [...] sending patient for testing in T or [facility], route encounter to the correct testing pool. LER OPERATOR documented in this encounter Plan of Treatment Not on filedocumented as of this encounter Visit Diagnoses Not on filedocumented in this encounter Additional Health Concerns Assessment Noted Time PHQ-9 Depression Total Score: 8 10/13/2017 12:58 PM CD T documented as of this encounter Care Teams Last Trimmer Relationship Specialty Start Date End Date Chaparro Payan P.A.-C. PCP - General 02/05/[address] [place] [phone] documented as of this encounter
--- OUTSIDE RECORDS SUMMARY | 2022-02-18 09:36 | XMS_ITS | Encounter Summary ---
:1998 Author Organization [facility] [place] [facility] Address [address] [place] [address] Care Team Providers Name Role Phone Chaparro Payan P.A.-C. Primary Care Provider [phone] Reason for Visit Reason Onset Date Comments Outpatient COVID-19 Testing 02/28/2020 Encounter Details Date Type Department Care Team Description 02/28/2020 External Outreach Urgent Care in [place], [place] [facility] ([place] [address] [facility] [address]) DR Génesis [facility], [place] [phone] [phone] Social History Tobacco Use Types Packs/Day Years [...] How often do you attend scientology or yarsani 1 to 4 times per [...] RNA, V Symptomatic (02/28/2020 12:06 PM CDT) [facility] Method Time Signature SARS-CoV-2 Swab, 02/29/2020 MK[place] [...] is performed using the Aptima SARS-CoV-2 assay ([employer] which has received Emergency Use Authori zation (EUA) by the U.S. Food and Drug Administration. Fact sheets for this Emergency Use Autho rization (EUA) assay can be found at the following links: For Healthcare Providers: https://www.fd a.gov/media/861932/download For Patients: https://www.fda.gov/media/ 478354/download Specimen Anatomical Collection Method Collection Time Receive d Time (Source) Location / / Volume Laterality Varies 02/28/2020 12:06 02/28/2020 7:35 (Nasopharynx) PM CDT PM CDT Kee Kemp P.A.-C. LAB MICROBIOLOGY - GENERAL O JIMMY Performing Organization Address City/State/ZIP Code Phon e Number [facility]- [facility] [place] [address] [place] [address] System in [place] [address] [place] [address] documented in this encounter Visit Diagnoses Diagnosis Infection Upper Respiratory - Primary documented in this encounter Additional Health Concerns Infection Onset Date Last Indicated Resolved Time COVID19 Pending 02/28/2020 02/28/2020 02/29/2020 4:25 AM CDT Assessment Noted Time PHQ-9 Depression Total Score: 8 10/13/2017 12:58 PM CD T documented as of this encounter Care Teams Trailer Body Assembler Relationship Specialty Start Date End Date Chaparro Payan P.A.-C. PCP - General 02/05/18 [address] [place] [address] documented as of this encounter
--- OUTSIDE RECORDS SUMMARY | 2022-02-18 09:36 | XMS_ITS | Encounter Summary ---
:1998 Author Organization [facility] Address [address] [place] [address] Care Team Providers Name Role Phone Chaparro Payan P.A.-C. Primary Care Provider [phone] Reason for Visit Reason Comments COVID Inquiry Encounter Details Date Type Department Care Team Description 06/23/2020 [facility] [place] VID Inquiry Cardiovascular Surgery Provider in [place], [place] [address] [place] [address] Social History Tobacco Use Types [...] 08/02/2020 relatives? How often do you attend samaritan or scientology 1 to 4 times per year 08/02/2020 services? Do you belong to any clubs or organizations such No 08/02/2020 as samaritan groups, unions, fraternal or athletic groups, or [...] LABORATORY CONFIRMED case ofCOVID-19?: Yes exposure noted. [place] patient, instruct to quarantine, testing indicated (End Screening) Testing Recommendation Endpoint Is testing recommended? : Recommended to test Plan: Endpoint recommendation: Testing indicated, advised to be swabbed for COVID-19 Only , sent to [place] located at [address] [place] [address]. The entrance is on the north side of the building. You must call [phone] for an appointment time.Testing hours are Daily [...] sending patient for testing in [facility]ST or [facility], route encounter to the correct testing pool. LLARY SERVICES MANAGER THERAPY documented in this encounter Plan of Treatment Not on filedocumented as of this encounter Visit Diagnoses Not on filedocumented in this encounter Additional Health Concerns Infection Onset Date Last Indicated Resolved Time COVID19 Pending 06/23/2020 06/23/2020 06/24/2020 2:18 PM ANCILLARY SERVICES MANAGER THERAPY Assessment Noted Time PHQ-9 Depression Total Score: 8 10/13/2017 12:58 PM CD T documented as of this encounter Care Teams Writer Editor Relationship Specialty Start Date End Date Chaparro Payan P.A.-C. PCP - General 02/05/[address] [place] [phone] documented as of this encounter
--- OUTSIDE RECORDS SUMMARY | 2022-02-18 09:36 | XMS_ITS | Encounter Summary ---
:1998 Author Organization [facility] Address [address] [place] [address] Care Team Providers Name Role Phone Unavailable Primary Care Provider Unavailable Encounter Details Date Type Department Care Team Description 04/30/2015 Hospital Encounter HX [facility] FAMILY[facility] Miranda Reece APRN, C.N.P., M.S.N. [address] [place] [address] (Wo rk) Social History Tobacco Use Types [...] 08/02/2020 relatives? How often do you attend moravian or congregation 1 to 4 times per year 08/02/2020 services? Do you belong to any clubs or organizations such No 08/02/2020 as moravian groups, unions, fraternal or athletic groups, or [...] (131 lb 2.8 oz) 04/30/2015 3:28 PM RUBBER GRINDER Height 158 cm (5' 2.21) 04/30/2015 3:28 PM RUBBER GRINDER Body Mass Index 23.83 04/30/2015 3:28 PM RUBBER GRINDER Body Mass Index Percentile 79.89 % 04/30/2015 3:28 PM CS T Growth Chart: [facility] (Girls, 2-20 Years) documented in this encounter H&P Notes Chevy, Miranda Guadalupe, BEL, TIFFANIE - 04/30/2015 3:19 PM CST [id number] CHIEF COMPLAINT/REASON FOR VISIT Annual physical. HISTORY [...] Jansen -C./francesca Electronically Signed By: MIRANDA REECE [facility] On: 05/21/2015 02:28 PM Source: [facility] MHSDOLBEYNONRADSYS Document Id: [id number] ER GRINDER documented in this encounter Miscellaneous Notes Miscellaneous - Triston Mccormick, L.P.N. - 04/30/2015 3:32 PM CST PHQ-9 - Teens PHQ-9 - Teens Entered On: 04/30/2015 15:33 RUBBER GRINDER Performed On: 04/30/2015 15:32 RUBBER GRINDER by TRISTON MCCORMICK LPN PHQ-9 - Teens [...] No TRISTON MCCORMICK LPN - 04/30/2015 15:32 RUBBER GRINDER Source: [employer] Document Id: [id number] RUBBER GRINDER!16 ER GRINDER Miscellaneous - Triston Mccormick L.P.N. - 04/30/2015 3:28 PM CST Pediatric Sign Manufacturer Intake/History Pediatric Sign Manufacturer Intake/History Entered On: 04/30/2015 15:31 RUBBER GRINDER Performed On: 04/30/2015 15:28 RUBBER GRINDER by TRISTON MCCORMICK LPN Intake Chief Complaint [...] kg/m2 TRISTON MCCORMICK LPN - 04/30/2015 15:28 RUBBER GRINDER General Info Accompanied By : Mother, Sibling Information Given By : Patient Languages : Georgian, Sami Is Patient Female and 13-50 no hysterectomy : Yes Status : Patient denies Are you ? : No TRISTON MCCORMICK LPN - 04/30/2015 15:28 RUBBER GRINDER Subjective Pain Symptoms : No TRISTON MCCORMICK LPN - 04/30/2015 15:28 RUBBER GRINDER Dependent Habits Exposure to Tobacco Smoke : Care provider denies smoking in home Smoking Status : Never smoker Tobacco 2A : No Alcohol Use : No TRISTON MCCORMICK LPN - 04/30/2015 15:28 RUBBER GRINDER Caffeine Use Grid Caffeine Use : Current Type : Chocolate, Soft drinks Frequency : Weekly Amount : 2 times per month Last Use : 04/30/15 TRISTON MCCORMICK LPN - 04/30/2015 15:28 RUBBER GRINDER Recreational Drug Use Grid Drug Use : None TRISTON MCCORMICK LPN - 04/30/2015 15:28 RUBBER GRINDER Source: [facility] VMIX MediaCHART Document Id: [id number] RUBBER GRINDER!42 ER GRINDER documented in this encounter Plan of Treatment Not on filedocumented as of this encounter Procedures Procedure Name Priority Date/Time Associated Comments Diagnosis CHLAMYDIA/GONORRHOEAE Routine 04/30/2015 3:30 PM Results for this AMPLIFIED RNA RUBBER GRINDER procedure are in the results section. CHLAMYDIA TRACHOMATIS Routine 04/30/2015 3:30 PM Results for this AMPLIFIED RNA RUBBER GRINDER procedure are in the results section. documented in this encounter Results Chlamydia / Gonorrhoeae Amplified RNA (04/30/2015 3:30 PM RUBBER GRINDER) Component Value Ref Test Analysis Performed At [facility] Range Method Time Signature HX GC by Nucleic POWERCHART Acid Amplification HXFinal Negative for POWERCHART Neisseria gonorrhea by RNA amplification . HXFinal Reference: POWERCHART Negative HXFinal If you POWERCHART submitted a female urine sample, please note it is a Laboratory Developed Test. Specimen (Source) Anatomical Collection Method Collection Time Re ceived Time Location / / Volume Laterality Urine 04/30/2015 3:30 PM RUBBER GRINDER Miranda Reece APRN, C.N.P., M.S.N. LAB MICROB IOLOGY - GENERAL ORDERABLES Performing Organization Address City/State/ZIP Code Phon e Number POWERCHART Chlamydia Trachomatis Amplified RNA (04/30/2015 3:30 PM RUBBER GRINDER) Component Value Ref Test Analysis Performed At [facility] Range Method Time Signature HXChlamydia by POWERCHART Nucleic Acid Amplification HXFinal Negative for POWERCHART Chlamydia trachomatis by RNA amplification. HXFinal Reference: POWERCHART Negative HXFinal If you POWERCHART submitted a female urine sample, please note it is a Laboratory Developed Test. Specimen (Source) Anatomical Collection Method Collection Time Re ceived Time Location / / Volume Laterality Urine 04/30/2015 3:30 PM RUBBER GRINDER Miranda Reece APRN, C.N.P., M.S.N. LAB MICROB IOLOGY - GENERAL ORDERABLES Performing Organization Address City/State/ZIP Code Phon e Number POWERCHART documented in this encounter Visit Diagnoses Not on filedocumented in this encounter
--- OUTSIDE RECORDS SUMMARY | 2022-02-18 09:36 | XMS_ITS | Encounter Summary ---
:1998 Author Organization [facility] Address [address] [place] [address] Care Team Providers Name Role Phone Chevy, Miranda Guadalupe APRN C.N.P., M.S.N. Primary Care Pr ovider Reason for Visit Reason Comments New Patient Outpatient (Routine) - Closed Specialty Diagnoses / Referred By Contact Referred To Contact Procedures Cardiovascular Diseases / Diagnoses Bicuspid Aortic Valve (HCC) Phyllis Ramírez, [facility] Cardiovascular Disease M.DBettie [address] [place] [address] Referral ID Status Reason Start Date Expiration Date Visits Requ ested Visits Authorized [id number] Closed 11/03/2017 11/03/2018 1 1 Encounter Details Date Type Department Care Team Description 11/17/2017 Comprehensive Visit Department of Rene Minor Aortic Cardiovascular TSilvio, M.P.H. Valve (HCC) Diseases in [address] [place] [address] 300 [facility] [address] [place], [place] [phone] [address] (Work) [phone] Social History Tobacco Use Types Packs/Day Years [...] How often do you attend confucianism or congregation 1 to 4 times per [...] documented as of this encounter Care Teams Digital Associate Relationship Specialty Start Date End Date Miranda Reece APRN, C.N.P., PCP - General 02/04/18 M.S.N. [address] [place] [address] documented as of this encounter
--- OUTSIDE RECORDS SUMMARY | 2022-02-18 09:36 | XMS_ITS | Encounter Summary ---
:1998 Author Organization [facility] Address [address] [place] [address] Care Team Providers Name Role Phone Unavailable Primary Care Provider Unavailable Encounter Details Date Type Department Care Team Description 02/18/2011 Hospital Encounter HX [facility] FAMILY[facility] Elmo Kitchen, BEL, C.N.P., D. N.P. [address] [place], [place] [address] (Wo rk) Social History [...] How often do you attend congregational or congregation 1 to 4 times per [...]
--- OUTSIDE RECORDS SUMMARY | 2022-02-18 09:36 | XMS_ITS | Encounter Summary ---
:1998 Author Organization [facility] Address [address] [place] [address] Care Team Providers Name Role Phone Chaparro Payan P.A.-C. Primary Care Provider [phone] Encounter Details Date Type Department Care Team Description 06/23/2020 Admin Visit Department of Family Medicine, [address] [address] [facility] [phone] Social History Tobacco Use Types Packs/Day Years [...] 08/02/2020 relatives? How often do you attend restorationist or rastafari 1 to 4 times per year 08/02/2020 services? Do you belong to any clubs or organizations such No 08/02/2020 as restorationist groups, unions, fraternal or athletic groups, or [...] COVID19 Pending 06/23/2020 06/23/2020 06/24/2020 2:18 PM RESEARCH PROJECT MANAGER Assessment Noted Time PHQ-9 Depression Total Score: 8 10/13/2017 12:58 PM CD T documented as of this encounter Care Teams French Tutor Relationship Specialty Start Date End Date Chaparro Payan P.A.-C. PCP - General 02/05/[address] [place] [phone] documented as of this encounter
--- OUTSIDE RECORDS SUMMARY | 2022-02-18 09:36 | XMS_ITS | Encounter Summary ---
:1998 Author Organization [facility] Address [address] [place] [address] Care Team Providers Name Role Phone Chevy, Miranda Guadalupe APRN C.N.P., M.S.N. Primary Care Pr ovider Reason for Visit Reason Comments Follow-up ER - [place] Encounter Details Date Type Department Care Team Description 10/13/2017 Office Visit Department of Family Chaparro Payan Bi cuspid Aortic Valve (HCC) (Primary Dx); Medicine, [place] [facility], in [address] [facility] [address] [place], [place] [phone] (Work) [phone] Social History Tobacco Use Types Packs/Day Years [...] How often do you attend pentecostalism or oriental orthodox 1 to 4 times [...] 10/13/2017 12:52 PM C DT Growth Chart: [facility] (Girls, 2-20 Years) documented in this encounter [...] bothering her. 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 [address] [place] [address] documented as of this encounter
--- OUTSIDE RECORDS SUMMARY | 2022-02-18 09:36 | XMS_ITS | Encounter Summary ---
:1998 Author Organization [facility] Address [address] [place] [address] Care Team Providers Name Role Phone Chaparro Payan P.A.-C. Primary Care Provider [phone] Reason for Visit Reason Onset Date Comments Outpatient COVID-19 Testing 03/27/2020 Encounter Details Date Type Department Care Team Description 03/27/2020 External Outreach Department of Wood Guzman Infect ion Upper Internal Medicine in J, D.O. Respiratory (Primary [place], [place] [address] Dx) [address] [place] [phone] Social History Tobacco Use Types Packs/Day Years [...] 08/02/2020 relatives? How often do you attend anabaptist or confucianist 1 to 4 times per year 08/02/2020 services? Do you belong to any clubs or organizations such No 08/02/2020 as anabaptist groups, unions, fraternal or athletic groups, or [...] RNA, V Symptomatic (03/28/2020 3:08 PM CDT) [facility] Method Time Signature SARS-CoV-2 Swab, 03/29/2020 [...] is performed using the Aptima SARS-CoV-2 assay ([employer] which has received Emergency Use Authori zation (EUA) by the U.S. Food and Drug Administration. Fact sheets for this Emergency Use Autho rization (EUA) assay can be found at the following links: For Healthcare Providers: https://www.fd a.gov/media/510125/download For Patients: https://www.fda.gov/media/ 684353/download Specimen Anatomical Collection Method Collection Time Receive d Time (Source) Location / / Volume Laterality Varies 03/28/2020 3:08 PM 0 1:47 (Nasopharynx) CDT AM CDT Wood Guzman D.O. LAB MICROBIOLOGY - GENERAL O RDERABROOKE Performing Organization Address City/State/ZIP Code Phon e Number [facility]- [facility] [place] [address] [place] [address] System in [place] [address] [place] [address] documented in this encounter Visit Diagnoses Diagnosis Infection Upper Respiratory - Primary documented in this encounter Additional Health Concerns Infection Onset Date Last Indicated Resolved Time COVID19 Pending 03/27/2020 03/28/2020 03/29/2020 10:23 PM CDT Assessment Noted Time PHQ-9 Depression Total Score: 8 10/13/2017 12:58 PM CD T documented as of this encounter Care Teams Enroller Relationship Specialty Start Date End Date Chaparro Payan P.A.-C. PCP - General 02/05/18 [address] [place] [address] documented as of this encounter
--- OUTSIDE RECORDS SUMMARY | 2022-02-18 09:36 | XMS_ITS | Encounter Summary ---
:1998 Author Organization [facility] Address [address] [place] [address] Care Team Providers Name Role Phone Chaparro Payan P.A.-C. Primary Care Provider [phone] Reason for Visit Reason Onset Date Comments Testing For Upper Respiratory Virus Symptoms 06/23/2020 Encounter Details Date Type Department Care Team Description 06/23/2020 External Outreach Department of Wood Guzman And Internal Medicine in J, D.OBettie (Suspected) Exposure [place], [place] [address] [place] [address] To COVID-19 (Primary [address] [place], [place] Dx) [place] [phone] Social History Tobacco Use Types Packs/Day Years [...] How often do you attend yazidi or zoroastrian 1 to 4 times per [...] Influenza, RSV, and/or Group A Strep testing. NG AND BORING MACHINE HELPER documented in this encounter Plan of Treatment Not on filedocumented as of this encounter Procedures Procedure Name Priority Date/Time Associated Diagnosis Comme nts SARS CORONAVIRUS-2 Routine 06/23/2020 1:35 PM Contact With And Results for this RNA, V ADZING AND BORING MACHINE HELPER (Suspected) Exposure procedu re are in To COVID-19 the results section. documented in this encounter Results SARS Coronavirus-2 RNA, V Symptomatic (06/23/2020 1:35 PM ADZING AND BORING MACHINE HELPER) [facility] Method Time Signature SARS-CoV-2 Swab, 06/24/2020 [place] Specimen Nasopharynx 2:17 PM ADZING AND BORING MACHINE HELPER Source SARS CoV-2 Undetected Undetected 06/24/2020 [place] RNA, TMA 2:17 PM ADZING AND BORING MACHINE HELPER Comment: SARS-CoV-2 RNA absent. This result does not rule out COVID-19 in the patient, as the sensitivity of the test depends o n the timing of the specimen collection and the quality of the specim en. Result should be correlated with patient's history and clinical presentat ion. ----ADDITIONAL INFORMATION---- This molecular amplification test was pe rformed using the Aptima SARS-CoV-2 assay ([employer] on the P[employer] tem under emergency use authorization (EUA) by the U.S. Food and Drug Administ ration. Fact sheets for this EUA assay can be fo und at the following links: For Healthcare Providers: https://www.fd a.gov/media/038160/download For Patients: https://www.fda.gov/media/ 029441/download Specimen Anatomical Collection Method Collection Time Receive d Time (Source) Location / / Volume Laterality Varies 06/23/2020 1:35 PM 6:28 (Nasopharynx) ADZING AND BORING MACHINE HELPER AM ADZING AND BORING MACHINE HELPER Wood Guzman D.O. LAB MICROBIOLOGY - GENERAL O RDERABLES Performing Organization Address City/State/ZIP Code Phon e Number [facility]- [address] [place] [address] [place] [address] System in [place] [address] [place] [address] documented in this encounter Visit Diagnoses Diagnosis Contact With And (Suspected) Exposure To COVID-19 - Primary documented in this encounter Additional Health Concerns Infection Onset Date Last Indicated Resolved Time COVID19 Pending 06/23/2020 06/23/2020 06/24/2020 2:18 PM ADZING AND BORING MACHINE HELPER Assessment Noted Time PHQ-9 Depression Total Score: 8 10/13/2017 12:58 PM CD T documented as of this encounter Care Teams Residential Advisor Relationship Specialty Start Date End Date Chaparro Payan P.A.-C. PCP - General 02/05/[address] [place] [phone] documented as of this encounter
--- OUTSIDE RECORDS SUMMARY | 2022-02-18 09:36 | XMS_ITS | Encounter Summary ---
:[address] [facility] Address [address] [place] [address] Care Team Providers Name Role Phone Unavailable Primary Care Provider Unavailable Encounter Details Date Type Department Care Team Description 10/09/2016 Hospital Encounter HX FBCV FAMILYPRA Amrita Payan P.A.-C. [address] [place] [address] (Wo rk) Social History Tobacco Use [...] How often do you attend pentecostalism or hinduism 1 to 4 times per [...] Payan P.A.-C. - 10/09/2016 3:04 PM CDT [id number] CHIEF COMPLAINT/REASON FOR VISIT Sore throat. HISTORY [...] PAYAN PA-C On: 10/12/2016 09:00 AM Source: [facility] MHSDOLBEYNONRADSYS Document Id: [id number] documented in this encounter Miscellaneous Notes Miscellaneous - Mkiael Payan P.A.-C. - 10/09/2016 4:34 PM CDT Ambulatory Discharge Medication List [address] [id number] Visit Information Name: CITLALY HOLLAND [facility] Number: [id number] Current Date: 10/09/2016 16:34:51 [...] PA-C Signed On:09-OCT-2016 16:34:49 Additional Information: Source: [facility] POWERCHART Document Id: [id number] Miscellaneous - Mikael Payan P.A.-C. - 10/09/2016 4:34 PM CDT Ambulatory Patient Summary [address] [id number] Visit Information Name: CITLALY HOLLAND [facility] Number: [id number] Current Date: 10/09/2016 16:34:51 [...] if you dont have one. Go to [email or web address] and click on Create Your Account. Then, follow the directions to complete the online form. Youll be asked for your [facility] number which you can find at the top of this document. Your Goals/Additional instructions: Source: [facility] POWERCHART Document Id: [id number] Miscellaneous - Roxana Hernandez L.PBettieNBettie - 10/09/2016 3:18 PM CDT Pediatric Tank Builder And Erector Intake/History Pediatric Tank Builder And Erector Intake/History Entered On: 10/09/2016 15:20 CDT Performed [...] Information Given By : Patient Languages : Telugu Is Patient Female and 13-50 no hysterectomy [...] HERNANDEZ LPN - 10/09/2016 15:18 CDT Source[facility] POWERCH[facility] Document Id: [id number] CDT!45 documented in this encounter Plan of [...] Strep A Screen (10/09/2016 3:30 PM CDT) [facility] [employer] Method Time Signature HXRapid Strep POWERCHART Confirmation [...] Strep A Screen (10/09/2016 3:30 PM CDT) [facility] [employer] Method Time Signature HXStrep A POWERCHART Screen [...]
--- OUTSIDE RECORDS SUMMARY | 2022-02-18 09:36 | XMS_ITS | Encounter Summary ---
:[address] [facility] Address [address] [place] [address] Care Team Providers Name Role Phone Chaparro Payan P.A.-C. Primary Care Provider [phone] Encounter Details Date Type Department Care Team Description 02/20/2020 Orders Only [facility] PCP [facility] MNT Chaparro Payan P.A.-C. [address] [place] [address] (Wo rk) Social History [...] 08/02/2020 relatives? How often do you attend hoahaoism or adventist 1 to 4 times per year 08/02/2020 services? Do you belong to any clubs or organizations such No 08/02/2020 as hoahaoism groups, unions, fraternal or athletic groups, or [...] documented as of this encounter Care Teams Spinner Operator Relationship Specialty Start Date End Date Chaparro Payan P.A.-C. PCP - General 02/05/[address] [place] [phone] documented as of this encounter
--- OUTSIDE RECORDS SUMMARY | 2022-02-18 09:36 | XMS_ITS | Encounter Summary ---
:[address] [facility] Address [address] [place] [address] Care Team Providers Name Role Phone Chaparro Payan P.A.-C. Primary Care Provider [phone] Reason for Referral Outpatient (Routine) - Closed Specialty Diagnoses / Procedures Referred By Contact Refer red To Contact Diagnoses Bicuspid Aortic Valve (HCC) Fatigue Phyllis Ramríez M.D. [facility] [place] [facility] Procedures ECG 12 Lead MD EKG 12 LEAD TRACE ONLY MD EKG I&R ONLY [address] [facility] [place] [address] Referral ID Status Reason Start Date Expiration Date Visits Requ ested Visits Authorized [id number] Closed 09/03/2017 03/02/2018 1 1 Outpatient (Routine) - Closed Specialty Diagnoses / Procedures Referred By Contact Refer red To Contact Diagnoses Bicuspid Aortic Valve (HCC) Fatigue par review Phyllis Ramírez M.D. [facility] [place] [facility] Procedures Echo Transthoracic (TTE) MD ECHO TTE 2D W DPLR COMPLETE CVD ECHO [address] [place] [address] Referral ID Status Reason Start Date Expiration Date Visits Requ ested Visits Authorized [id number] Closed 09/03/2017 03/02/2018 1 1 Reason for Visit Reason Comments Annual Exam Encounter Details Date Type Department Care Team Description 09/03/2017 Comprehensive Visit Department of Hurtt, Phyllis Well A dult Examination Abnormal (Primary Dx); Family MedicineMaggy M.D. Overweight Body Mass Index 25-29.9 Adult ; [facility], [address] [facility] Bicuspid Aortic Valve (HCC); in [place], [place] Constipation Slow Transit; [place] [address] Dysmenorrhea; [address] [facility] AV [phone] Management Contraceptive; [place], [place] (Work) Fatigue; [id number] Screening Examination For [...] How often do you attend bahai or yazidi 1 to 4 times per [...] % 09/03/2017 10:25 AM CDT Growth Chart: [facility] (Girls, 2-20 Years) documented in this [...] ECHO DOPPLER COLOR (11/02/2017 8:41 AM CDT) [employer] Method Time Signature Ejection Fraction 59 MC [...] Method Time Signature Source URINE, FIRST 09/06/2017 [facility] VOID 12:[address] [facility] Chlamydia Negative Negative 09/06/2017 [facility] trachomatis 12:11 PM CDT [facility] LAB Comment: ----ADDITIONAL INFORMATION---- This report is [...] - GENERAL O RDERABLES Performing Organization Address City/[facility]/ZIP Code Phon e Number [facility] [address] [place] [address] LAB ECG 12 Lead (09/03/2017 11:16 AM CDT) P athologist Signature Ventricular Rate 77 BPM MUSE ECG/Min MD Interval 136 ms MUSE QRSD Interval 80 ms MUSE QT Interval 330 ms MUSE QTC Interval 373 ms MUSE P Belcher 31 degrees MUSE R Belcher 7 degrees MUSE T Wave Belcher 31 degrees MUSE Specimen Anatomical Collection Method Collection Time Receive d Time (Source) Location / / Volume Laterality 09/03/2017 11:16 09/03/2017 AM CDT 11:42 AM CDT Impressions MUSE - 09/03/2017 11:42 AM CDT Normal sinus rhythm Nonspecific ST abnormality No previous ECGs available Narrative This result has an attachment that is no t available. Phyllis Ramírez M.D. ECG ORDERABLES Performing Organization Address City/[facility]/ZIP Code Phon e Number MUSE MUSE NA S-TSH (Thyroid-Stimulating Hormone - Sensitive) (09/03/2017 11:08 AM CDT) P athologist Signature TSH, Sensitive 1.4 0.5 - 4.3 09/03/2017 [facility] mIU/L 1:46 PM CDT [facility] [place] [facility] Comment: Biotin has been identified by the jose matthews as a potential interfering substance. ??Higher concentr ations of biotin may be found in multivitamins, hair/nail supple ments, and workout supplements. ??If the result does not [facility] clinical observations, repeat testing after patient refrains fr om the use of supplements for at least 12 hours. Specimen Anatomical Collection Method Collection Time Receive d Time (Source) Location / / Volume Laterality Blood (Blood, 09/03/2017 11:08 09/03/2017 1:09 Venous) AM CDT PM CDT Phyllis Ramírez M.D. LAB BLOOD ADD-ON Performing Organization Address City/State/ZIP Code Phon e Number [facility] [place] [address] [place] [address] LAB (ABNORMAL) Lipid Panel (09/03/2017 11:08 AM CDT) athologist Signature Cholesterol, 205 (H) mg/dL 09/03/2017 [facility] Total 1:46 PM CDT [facility] [place] [facility] Comment: ----REFERENCE VALUE---- Desirable: < 200 Borderline high: 200 - 239 High: > or = 240 Triglycerides 206 (H) mg/dL 09/03/2017 1:46 PM CDT [facility] [place] [facility] Comment: ----REFERENCE VALUE---- Normal: <150 Borderline high: 150-199 High: 200-499 Very high: > or =500 Cholesterol, HDL, S 50 >=50 mg/dL 09/03/2017 1:46 PM CDT [facility] [place] [facility] Calculated LDL 114 mg/dL 09/03/2017 1:46 PM CDT [facility] [place] [facility] Comment: ----REFERENCE VALUE---- Desirable: <100 Above Desirable: 100-129 Borderline high: 130-159 High: 160-189 Very high: > or =190 Cholesterol, Non-HDL, 155 mg/dL 09/03/2017 1:46 PM CDT [facility] [place] Comment: ----REFERENCE VALUE---- Desirable: <130 Above Desirable: 130-159 Borderline high: 160-189 High: 190-219 Very high: > or =220 Specimen Anatomical Collection Method Collection Time Receive d Time (Source) Location / / Volume Laterality Blood (Blood, 09/03/2017 11:08 09/03/2017 1:09 Venous) AM CDT PM CDT Phyllis Ramírez M.D. LAB BLOOD ADD-ON Performing Organization Address City/[facility]/ZIP Code Phon e Number [facility] [place] [address] [place] [phone] LAB AST (Aspartate Aminotransferase) (09/03/2017 11:08 AM CDT) Patholo gist Method Time Signature Aspartate 16 8 - 43 09/03/2017 [facility] Aminotransferase U/L 1:46 PM CDT [facility] [place] [facility] Specimen Anatomical Collection Method Collection Time Receive d Time (Source) Location / / Volume Laterality Blood (Blood, 09/03/2017 11:08 09/03/2017 1:09 Venous) AM CDT PM CDT Phyllis Ramírez M.D. LAB BLOOD ADD-ON Performing Organization Address City/[facility]/ZIP Code Phon e Number [facility] [place] [address] [place] [address] LAB (ABNORMAL) BMP (Basic Metabolic Panel) (09/03/2017 11:08 AM CDT) Analysis Performed At Path logist Time Signature Potassium, S 4.1 3.6 - 5.2 09/03/2017 [facility] mmol/L 1:46 PM CDT [facility] [place] [facility] Sodium, S 142 135 - 145 09/03/2017 [facility] mmol/L 1:46 PM CDT [facility] [place] [facility] Chloride, S 101 98 - 107 09/03/2017 [facility] mmol/L 1:46 PM CDT [facility] [place] [facility] Bicarbonate, S 30 (H) 22 - 29 09/03/2017 [facility] mmol/L 1:46 PM CDT [facility] [place] [facility] Anion Gap 11 7 - 15 09/03/2017 [facility] 1:46 PM CDT [facility] [place] [facility] BUN (Blood Urea 8 6 - 21 09/03/2017 [facility] Nitrogen), S mg/dL 1:46 PM CDT [facility] [place] [facility] Creatinine 0.56 (L) 0.59 - 09/03/2017 [facility] 1.04 mg/dL 1:46 PM T [facility] [place] [facility] eGFR-Non >90 >=60 09/03/2017 [facility] Black/ mL/min/BSA 1:46 PM CDT [facility] [place] [facility] Comment: ----ADDITIONAL INFORMATION---- Estimated GFR calculated using the 2009 CKD_EPI creatinine equation. eGFR-Black/ >90 >=60 mL/min/BSA 2017 1:46 PM [facility] [place] [facility] Comment: ----ADDITIONAL INFORMATION---- Estimated GFR calculated using the 2009 CKD_EPI creatinine equation. Calcium, Total, S 9.6 9.1 - 10.3 mg/dL 09/03/2017 1 :46 PM CDT [facility] [place] [facility] Glucose, S 80 70 - 140 mg/dL 09/03/2017 1:46 PM CDT [facility] [place] [facility] Specimen Anatomical Collection Method Collection Time Receive d Time (Source) Location / / Volume Laterality Blood (Blood, 09/03/2017 11:08 09/03/2017 1:09 Venous) AM CDT PM CDT Phyllis Ramírez M.D. LAB BLOOD ADD-ON Performing Organization Address City/State/ZIP Code Phon e Number [facility] [place] [address] [address] LAB CBC with Differential (09/03/2017 11:08 AM CDT) P athologist Signature Hemoglobin 13.6 11.6 - 09/03/2017 [facility] 15.0 g/dL 11:36 AM T [facility] Hematocrit 40.7 35.5 - 09/03/2017 [facility] 44.9 % 11:36 AM T [facility] Erythrocytes 4.60 3.92 - 09/03/2017 [facility] 5.13 11:36 AM CDT HEALTH x10(12)/L [facility] MCV 88.5 78.2 - 09/03/2017 [facility] 97.9 fL 11:36 AM T [facility] RBC Distrib Width 13.2 12.2 - 09/03/2017 [facility] 16.1 % 11:36 AM CDT [facility] [place] [facility] Platelet Count 307 157 - 371 09/03/2017 [facility] x10(9)/L 11:36 AM CDT [facility] Leukocytes 8.7 3.4 - 9.6 09/03/2017 [facility] x10(9)/L 11:36 AM CDT [facility] [place] [facility] Neutrophils 5.74 1.56 - 09/03/2017 [facility] 6.45 11:36 AM CDT HEALTH x10(9)/L SYSTEM- [place] [facility] Lymphocytes 2.36 0.95 - 09/03/2017 [facility] 3.07 11:36 AM CDT HEALTH x10(9)/L SYSTEM- [place] [facility] Monocytes 0.48 0.26 - 09/03/2017 [facility] 0.81 11:36 AM CDT HEALTH x10(9)/L SYSTEM- [place] [facility] Eosinophils 0.08 0.03 - 09/03/2017 [facility] 0.48 11:36 AM CDT HEALTH x10(9)/L SYSTEM- [place] [facility] Basophils 0.01 0.01 - 09/03/2017 [facility] 0.08 11:36 AM CDT HEALTH x10(9)/L SYSTEM- [place] [facility] Specimen Anatomical Collection Method Collection Time Receive d Time (Source) Location / / Volume Laterality Blood (Blood, 09/03/2017 11:08 09/03/2017 Venous) AM CDT 11:08 AM CDT Phyllis Ramírez M.D. LAB BLOOD ADD-ON Performing Organization Address City/State/ZIP Code Phon e Number [facility]- [address] [place] [address] [place] [facility]- [address] [place], [place] [address] [place] [address] [place] [facility] documented in this encounter Visit Diagnoses Diagnosis Well Adult Examination Abnormal - Primar y Overweight Body Mass Index 25-29.9 Adult Bicuspid Aortic Valve (HCC) Constipation Slow Transit Dysmenorrhea Management Contraceptive Fatigue Screening Examination For Chlamydial Dis ease Screening Lipid Bicuspid Aortic Valve (HCC) Fatigue documented in this encounter Care Teams Consumer Insights Specialist Relationship Specialty Start Date End Date Chaparro Payan P.A.-C. PCP - General 02/05/[address] [place] [phone] documented as of this encounter
--- OUTSIDE RECORDS SUMMARY | 2022-02-18 09:36 | XMS_ITS | Encounter Summary ---
:2000 Author Organization [facility] Address [address] [place] [address] Care Team Providers Name Role Phone Chevy, Miranda Guadalupe APRN C.N.PBettie, M.S.N. Primary Care Pr ovider Reason for Referral Outpatient (Routine) - Closed Specialty Diagnoses / Procedures Referred By Contact Refer red To Contact Diagnoses Bicuspid Aortic Valve (HCC) Fatigue par review Phyllis Ramírez M.D. [facility] [place] [facility] Procedures Echo Transthoracic (TTE) [place] ECHO TTE 2D W DPLR COMPLETE CVD ECHO [address] [place] [address] Referral ID Status Reason Start Date Expiration Date Visits Requ ested Visits Authorized [id number] Closed 09/03/2017 03/02/2018 1 1 Reason for Visit Outpatient (Routine) - Closed Specialty Diagnoses / Procedures Referred By Contact Refer red To Contact Diagnoses Bicuspid Aortic Valve (HCC) Fatigue par review Phyllis Ramírez M.D. [facility] [place] [facility] Procedures Echo Transthoracic (TTE) [place] ECHO TTE 2D W DPLR COMPLETE CVD ECHO [address] [place] [address] Referral ID Status Reason Start Date Expiration Date Visits Requ ested Visits Authorized [id number] Closed 09/03/2017 03/02/2018 1 1 Encounter Details Date Type Department Care Team Description 11/02/2017 Hospital Encounter Department of Phyllis Ramírez Aortic Valve (HCC); Cardiovascular Diseases Silvio Winter Fatigue in [place]o [address] [facility] [address] [place], [place]USTO [phone] Social History Tobacco Use Types Packs/Day Years [...] 08/02/2020 relatives? How often do you attend advent or yazidism 1 to 4 times per year 08/02/2020 services? Do you belong to any clubs or organizations such No 08/02/2020 as advent groups, unions, fraternal or athletic groups, or [...] ECHO DOPPLER COLOR (11/02/2017 8:41 AM CDT) [facility] Method Time Signature Ejection Fraction 59 [...] documented as of this encounter Care Teams Size Worker Relationship Specialty Start Date End Date Reece, Miranda Guadalupe APRN, C.N.P., PCP - General 02/04/18 M.S.N. [address] [place] [phone] documented as of this encounter
--- OUTSIDE RECORDS SUMMARY | 2022-02-18 09:36 | XMS_ITS | Encounter Summary ---
:2000 Author Organization [facility] Address [address] [place] [address] Care Team Providers Name Role Phone Unavailable Primary Care Provider Unavailable Encounter Details Date Type Department Care Team Description 01/26/2013 Hospital Encounter HX [facility] FBKF FAMILYPRA Elmo Kitchen, BEL, C.N.P., D. N.P. [address] [place], [place] [address] (Wo rk) Social History [...] How often do you attend yazidism or restoration 1 to 4 times per year 08/02/2020 [...] % 01/26/2013 10:42 AM CDT Growth Chart: [facility] (Girls, 2-20 Years) documented in this encounter H&P Notes Lisa Kitchen APRN, C.N.P. - 01/26/2013 10:25 AM CDT [id number] CHIEF COMPLAINT/REASON FOR VISIT Well-child exam and sports physical. HISTORY OF PRESENT ILLNESS The patient is a 12-year-old female who presents for her 12-year-old well-child exam. Patient was last seen by me for her 10-year-old well-child exam. Patient lives at home with her mom, dad, one brother, one sister and one cousin. She does speak Hebrew in their home. Patient does wear glasses [...] ALLERGIES See EMR. SYSTEMS REVIEW Please see [facility] 11 to 14-year-old clinic visit sheet scanned into EMR for complete details. PAST MEDICAL/SURGICAL HISTORY Unchanged see EMR. SOCIAL HISTORY Patient lives at home with her mom, dad, brother, one sister and cousin. Denies tobacco, alcohol anddrug use. Patient is not sexually active. FAMILY HISTORY Unchanged see EMR. VITAL SIGNS See EMR. PHYSICAL EXAMINATION Please see scanned-in [facility] 11 to 14-year-old clinic visit sheet and [id number] sports qualifying physical examination clearance form as [...] CNP On: 02/13/2013 08:43 AM Source: [facility] MHSDOLBEYNONRADSYS Document Id: [id number] documented in this encounter Procedure Notes Conversion, [...] CDT KIRSTEN HUYNH 01/26/2013 11:23 CDT Source: [employer] Document Id: [id number] CDT!5 Conversion, Historical Provider Ser - 01/26/2013 [...] KIRSTEN HUYNH - 01/26/2013 11:39 CDT Source: [employer] Document Id: [id number] CDT!5 documented in this encounter Miscellaneous Notes Miscellaneous - Lisa Kitchen APRN, CBettieN.PBettie - 01/26/2013 5:17 PM CDT Ambulatory Patient Summary [address] [id number] Visit Information Name: CITLALY HOLLAND [facility] Number: [id number] Current Date: 01/26/2013 17:17:31 Physicians Attending Provider: LIAS CRANDALL CNP Primary Care Provider: LISA CRANDALL [...] No Appointments found Your Goals/Additional instructions: Source[facility] Document Id: [id number] Miscellaneous - Lisa Kitchen APRN, C.N.P. - 01/26/2013 5:17 PM CDT Ambulatory Depart Summary [address] [id number] Visit Information Name: CITLALY HOLLAND [facility] Number: [id number] Visit Date: 01/26/2013 17:17:30 Attending [...] your provider for clarification. Additional Information: Source: [employer] Document Id: [id number] Miscellaneous - Conversion, Historical Provider Ser - 01/26/2013 10:42 AM CDT Pediatric Forest Pathology Professor Intake/History Pediatric Forest Pathology Professor Intake/History Entered On: 01/26/2013 10:43 CDT Performed [...] Information Given By : Patient Languages : Setswana KIRSTEN HUYNH - 01/26/2013 10:42 CDT Subjective [...] KIRSTEN HUYNH 01/26/2013 10:42 CDT Source: [facility] POWERCHART Document Id: [id number] CDT!40 documented in this encounter Plan of Treatment Not on filedocumented as of this encounter Visit Diagnoses Not on filedocumented in this encounter
--- OUTSIDE RECORDS SUMMARY | 2022-02-18 09:37 | XMS_ITS | Encounter Summary ---
:1998 Author Organization [facility] Address [address] [place] [address] Care Team Providers Name Role Phone Unavailable [...] How often do you attend denominational or lutheran 1 to 4 times per [...] ??Exam: US Cranial Pediatrics Indications: *PORTABLE*HEAD-FOLLOW UP ?[id number] ORIGINAL REPORT - 05-Feb-1999 17:40:00 The brain [...] Cranial Pe diatrics Indications: *PORTABLE*HEAD-FOLLOW UP [id number] ORIGINAL REPORT - 05-Feb-1999 17:40:00 The brain [...] 1 4:49 Robert GONZALEZ DIAGNOSTIC IMAGING PROCE [facility] general Pathology Report (01/29/1999 1:49 PM CDT) Specimen Anatomical Collection Method Collection Time Receive d Time (Source) Location / / Volume Laterality 01/29/1999 1:49 PM 9 1:49 CD[address] [facility] - 01/29/1999 1:49 PM CDT [id number] Surgical Pathology Requested By: ? Ruben park M.D. ?([id number]) ?? TISSUE DESCRIPTION: ?? Distal ostomy (2.5 cm with ellipse o f skin) and proximal ostomy (5.2 cm in length) ?? [id number] A1, A2 ?? DIAGNOSIS: ?? Distal ostomy, excision: ??Benign sq uamous epithelium and colonic-type mucosa with mild chronic ?? inflammation. ?? Proximal ostomy, excision: ??Benign small bowel mucosa. ?? 29Jan1999 ?Erik TaverasS.:dam Procedure Note 08/20/2017 29Jan1999 Surgical Pathology Requested By: Ruben Shipley M.D. ([id number]) TISSUE DESCRIPTION: Distal ostomy (2.5 cm with ellipse of s kin) and proximal ostomy (5.2 cm in length) [id number] A1, A2 DIAGNOSIS: Distal ostomy, excision: Benign squamou s epithelium and colonic-type mucosa with mild chronic inflammation. Proximal ostomy, excision: Benign small bowel mucosa. 29Jan1999 Erik TaverasS.:suze toney Ruben Shipley M.D. LAB PATHOLOGY/CYTOLOGY ORDER TAYLOR Performing Organization Address City/State/ZIP Code Phon e Number [facility] - [address] Upper GI Double Contrast Without KUB [...] stomach. Electronically signed by: John Cassidy MD [phone] 28-Jan-1999 11:0 5 Hernan Maza M.D. IMLucía DIAGNOSTIC IMAGING PROCE [facility] Small Bowel (01/27/1999 2:36 PM CDT) Anatomical [...] Electronically signed by: ?? Yoli Hickman MD. ??[phone] 27-Jan-1999 15:14 Procedure Note Cecily Hickman M.D. - 09/06/2017Form atting of this note might be different from the original. 27-Jan-1999 14:36:00 Exam: GI-Small Baraham l Indications: pre-op exam ORIGINAL REPORT - [...] pneumotosis. Electronically signed by: Yoli Hickman MD. [phone] 27-Jan-1999 1 5:14 Robert Nick M.D. IMLucía [...] pneumotosis. Electronically signed by: Yoli Hickman MD. [phone] 27-Jan-1999 1 5:14 Robert Nick M.D. IMLucía [...] or co arctation. 2-D COMMENT: ??TAPE NUMBER: [id number]/09:45-34:40 ?Complete two-dimensional, color flow, and Doppler echocardiography [...] SYSTOLIC VALVE AREAS - ROUTIN E - LYTTON VALVE ? LVOT velocity (V1) ? 0.1 [...] Hg ? Narrative 01/23/1999 12:00 AM CDT [id number] ??ECHO ?FINAL REPORT ?? REPORT DATE: 23Jan1999 REFERRING MD: ??NICU ?RESPONSIBLE MD: ??Travis PBettie Mancera [phone] PROCEDURE TYPES: ?? 2-D, Doppler Video, and Color Flow. REFERRAL DIAGNOSIS: ?? Cardiomyopathy. ??Pediatric congenit al heart disease. HEMODYNAMICS: ?? Heart rate 151 BPM. ?? BP=44/31 FINAL Procedure Note Provider, Historical - 08/31/2017Formatt ing of this note might be different from the original. [id number] ECHO FINAL REPORT REPORT DATE: 23Jan1999 REFERRING MD: NICU RESPONSIBLE MD: Jermaine Farrell [phone] PROCEDURE TYPES: 2-D, Doppler Video, and Color [...] arteriosus or coarctation. 2-D COMMENT: TAPE NUMBER: [id number]/09:45-34:40 Complete two-dimensional, color flow, a nd Doppler [...] AORTIC SYSTOLIC VALVE AREAS - ROUTINE - LYTTON VALVE LVOT velocity (V1) 0.1 m/sec Peak Aortic velocity (V2) 0.4 * m/sec 0 .5-1.8 Peak Aortic time monique int(TVI2) 29.0 cm V1/V2 ratio 0.25 LVOT diameter 0.5 cm Valve area (by velocity) 0.05 cm2 Peak velocity obtained from apex TRICUSPID SYSTOLIC - ROUTINE - LYTTON V ALVE Peak velocity 2.2 m/sec Maximal [...] Electronically signed by: ?? John ??Khanh MICHAEL ??[id number] 07-Jan-1999 13:50 Procedure Note Kaye Cassidy M.D. [...] 100.120 Electronically signed by: John Cassidy MD [phone] 07-Jan-1999 13:5 0 Robert Nick M.D. IMG US PROCEDURES HX SUBSEQ ORDER FOR NB? (01/03/1999 12:31 PM CDT) Specimen Anatomical Collection Method Collection Time Receive d Time (Source) Location / / Volume Laterality 01/03/1999 12:31 01/12/1999 1:14 PM CDT AM CDT Narrative [facility] - 01/03/1999 12:31 PM CDT 03 Jan 1999 ?[id number] ?Ro ?12:31 ?? Subsq Order for NB: ?Blood Component ?R BC, Irradiated Leukoreduced ?CPDA-1, Divided ?Transfused ? 04 Jan 1999 ?Unit Number Id ? [id number] Procedure Note 09/15/2017 03 Jan 1999 [id number] Ro 12:31 Subsq Order for NB: Blood Component RBC, Irradiated Leukore duced CPDA-1, Divided Transfused 04 Jan 1999 Unit Number Id [id number] Historical Provider LAB HISTORICAL ORDERS Performing Organization Address City/State/ZIP Code Phon e Number [facility] - [address] [place], [place] [address] [facility] DX Chest and Abdomen Portable 1 [...] RLQ. Electronically signed by: John Cassidy MD [id number] 02-Jan-1999 07:3 6 Braulio Franco M.D. IMG DIAGNOSTIC IMAGING PROCE [facility] DX Infant Chest and Abdomen [...] Electronically signed by: ?? Yoli Hickman MD. ??[phone] 01-Jan-1999 10:59 Procedure Note Cecily Hickman M.D. [...] RLQ. Electronically signed by: Yoli Hickman MD. [phone] 1 0:02 Braulio Franco M.D. IMG [...] Dave Fields Ph.D. IM[facility]STIC [facility]ING [facility] Chest Portable 1 View (1998 [...] abdomen. Electronically signed by: ?? B.R. Bullernestina ??[phone] ([id number]) 1998 07:35 I have reviewed the films/images and agr ee with the above interpretation. Electronically signed by: ?? Yoli Hickman MD. ??[phone] 08:58 Procedure Note Cecily Hickman M.D. [...] the abdomen. Electronically signed by: Esequiel Velasco [phone] ([id number]) 1998 07 :35 I have reviewed the films/images and agr ee with the above interpretation. Electronically signed by: Yoli Hickman MD. [phone] 0 8:58 Braulio Franoc M.D. IMG DIAGNOSTIC IMAGING PROCE DURES DX [...] ?? Electronically signed by: ?? Esequiel Velasco ??[phone] ([id number]) 1998 00:24 I have reviewed the [...] of bowel. Electronically signed by: Esequiel Velasco [phone] ([id number]) 1998 00 :24 I have reviewed the films/images and agr ee with the above interpretation. Electronically signed by: Yoli Hickman MD. [phone] 1 5:39 Robert Nick M.D. IMLucía DIAGNOSTIC IMAGING [facility] DX Infant Chest and Abdomen Portable [...] catheter. Electronically signed by: ?? Esequiel Velasco ??[phone] ([id number]) 1998 22:14 I have reviewed the films/images [...] Ball catheter. Electronically signed by: Esequiel Velasco [phone] ([id number]) 1998 22 :14 I have reviewed the films/images and agr ee with the above interpretation. Electronically signed by: Yoli Hickman MD. [phone] 1 5:44 Robert Nick M.D. IMLucía DIAGNOSTIC IMAGING PROCE [employer] DX Infant Chest and Abdomen Portable 1 [...] air. Electronically signed by: ?? Esequiel Velasco ??[phone] ([id number]) 1998 07:25 I have reviewed the [...] free air. Electronically signed by: Esequiel Velasco [phone] ([id number]) 1998 07 :25 I have reviewed the films/images and agr ee with the above interpretation. Electronically signed by: Yoli Hickman MD. [phone] 0 9:26 Braulio GONZALEZ DIAGNOSTIC IMAGING PROCE [facility] DX Chest Portable 1 View (1998 [...] 8:47 AM 9 1:16 CDT AM CDT [facility] 1998 8:47 AM CDT 1998 ?[id number] ?Ro ?08:47 ?? Subsq Order for NB: ?Blood Component ?R BC, Irradiated Leukoreduced ?CPDA-1, Divided ?Transfused ? 1998 ?Unit Number Id ? [id number] Procedure Note 09/15/2017 1998 [id number] Ro 08:47 Subsq Order for NB: Blood Component RBC, Irradiated Leukore duced CPDA-1, Divided Transfused 1998 Unit Number Id [id number] Historical Provider LAB HISTORICAL ORDERS Performing Organization Address City/State/ZIP Code Phon e Number [facility] - [address] [place], [place] [address] [facility] DX Chest and Abdomen Portable 1 [...] notified. Electronically signed by: ?? Mannie Fu ??[phone] ([id number]) 22-Dec-18 99 21:07 I have reviewed the films/images and agr ee with the above interpretation. Electronically signed by: ?? Chris Vega ??[phone] 21:45 Procedure Note Paolo Vega M.D. [...] notifie d. Electronically signed by: Mannie Fu [phone] ([id number]) 1998 21:07 I have reviewed the films/images and agr ee with the above interpretation. Electronically signed by: Chris Vega [phone] 21:45 Reed GONZALEZ DIAGNOSTIC IMAGING PROCE DURES HX SUBSEQ ORDER FOR NB? (1998 6:34 PM CDT) Specimen Anatomical Collection Method Collection Time Receive d Time (Source) Location / / Volume Laterality 1998 6:34 PM 9 1:16 CDT AM CDT [address] [facility] - 1998 6:34 PM CDT 1998 ?[id number] ?Ro ?18:34 ?? Subsq Order for NB: ?Blood Component ?R BC, Irradiated Leukoreduced ?CPDA-1, Divided ?Transfused ? 1998 ?Unit Number Id ? [id number] ?Blood Component ?R BC, Irradiated Leukoreduced ?CPDA-1, Divided ?Transfused ? 1998 ?Unit Number Id ? [id number] Procedure Note 09/15/2017 1998 [id number] Ro 18:34 Subsq Order for NB: Blood Component RBC, Irradiated Leukore duced CPDA-1, Divided Transfused 1998 Unit Number Id [id number] Blood Component RBC, Irradiated Leukore duced CPDA-1, Divided Transfused 1998 Unit Number Id [id number] Historical Provider LAB HISTORICAL ORDERS Performing Organization Address City/State/ZIP Code Phon e Number [facility] - [address] [place], [place] [address] [facility] Hx general Pathology Report (1998 6:52 AM CDT) Specimen Anatomical Collection Method Collection Time Receive d Time (Source) Location / / Volume Laterality 1998 6:52 AM 9 6:52 CDT AM CDT [address] [facility] - 1998 6:52 AM CDT [id number] Surgical Pathology Requested By: ? Bryant Maza M.D. ? ([id number]) ?? TISSUE DESCRIPTION: ?? 4 cm small bowel ?? [id number] A1 ?? DIAGNOSIS: ?? Small bowel, partial resection: ??Se gment of small bowel with marked ischemic changes, ?? consistent with necrotizing enteroco litis. ?? [id number] ?Brian Taveras.S.:mgs Procedure Note 08/20/2017 [id number] Surgical Pathology Requested By: Hernan Maza M.D. ( [id number]) TISSUE DESCRIPTION: 4 cm small bowel [id number] A1 DIAGNOSIS: Small bowel, partial resection: Segment of small bowel with marked ischemic changes, consistent with necrotizing enterocolit is. [id number] Abdi TaverasB.S.:mg s Hernan Maza M.D. LAB PATHOLOGY/CYTOLOGY ORDER TAYLOR Performing Organization Address City/State/ZIP Code Phon e Number [facility] - [address] [place], [place] [address] [facility] DX Infant Chest and Abdomen Portable [...] Nick M.D. IMG DIAGNOSTIC IMAGING PROCE [facility] DX Chest and Abdomen Portable [...] RA. Electronically signed by: ?? Esequiel Velasco ??[phone] ([id number]) 1998 06:50 I have reviewed the films/images and agr ee with the above interpretation. Electronically signed by: ?? Yoli Hickman MD. ??[phone] 12:15 Procedure Note Cecily Hickman M.D. [...] in RA. Electronically signed by: Esequiel Velasco [phone] ([id number]) 1998 06 :50 I have reviewed the films/images and agr ee with the above interpretation. Electronically signed by: Yoli Hickman MD. [phone] 1 2:15 Robert GONZALEZ DIAGNOSTIC IMAGING PROCE [facility] DX Infant Chest and Abdomen [...] Nick M.D. IMLucía DIAGNOSTIC IMAGING PROCE [facility] DX Abdomen Portable Anterior Posterior 1 View [...] interspace. Electronically signed by: ?? China Arrieta ??[phone] ([id number]) 1998 1 0:03 I have reviewed [...] L4-L5 interspace. Electronically signed by: China Arrieta [phone] ([id number]) 1998 10: 03 I have reviewed the films/images and agr ee with the above interpretation. Electronically signed by: John Cassidy MD [phone] 10:5 3 Historical Provider IMG DIAGNOSTIC [...] Electronically signed by: ?? Yoli Hickman MD. ??[phone] 14:12 Procedure Note Cecily Hickman M.D. [...] recommended. Electronically signed by: Yoli Hickman MD. [phone] 1 4:12 Robert Nick M.D. IMG [...] abdomen. Electronically signed by: ?? China Arrieta ??[phone] ([id number]) 1998 0 7:17 I have reviewed the films/images and agr ee with the above interpretation. Electronically signed by: ?? Yoli Hickman MD. ??[phone] 09:22 Procedure Note Cecily Hickman M.D. [...] the abdomen. Electronically signed by: China Arrieta [phone] ([id number]) 1998 07: 17 I have reviewed the films/images and agr ee with the above interpretation. Electronically signed by: Yoli Hickman MD. [phone] 0 9:22 Robert GONZALEZ DIAGNOSTIC IMAGING PROCE [facility] DX Chest Portable 1 View (1998 6:56 [...] Electronically signed by: ?? John ??Khanh MICHAEL ??[phone] 07:03 Procedure Note Kaye Cassidy M.D. - 09/06/2017Form atting of this note might be different from the original. 1998 06:56:00 Exam: Portable-Ches t Indications: follow rds ORIGINAL REPORT - 1998 07:03:00 Since yesteray, the ETT has been removed . Enteric tube, UAC, and UVC, remain in place and are unchanged in position. Pulmonary infiltrates have improved. Electronically signed by: John Cassidy MD [phone] 07:0 3 Robert Nick M.D. IMG [...] pattern. Electronically signed by: ?? China Arrieta ??[phone] ([id number]) 1998 0 7:14 I have reviewed [...] gas pattern. Electronically signed by: China Arrieta [phone] ([id number]) 1998 07: 14 I have reviewed the films/images and agr ee with the above interpretation. Electronically signed by: Chris Vega [phone] 10:51 Robert Nick M.D. IMG [facility]STIC [facility] Head (1998 3:48 PM CDT) [...] D:100.120 Electronically signed by: Yoli Hickman MD. [phone] 1 7:38 Robert Nick M.D. IMG [...] pattern. Electronically signed by: ?? China Arrieta ??[phone] ([id number]) 1998 0 7:54 I have reviewed [...] gas pattern. Electronically signed by: China Arrieta [phone] ([id number]) 1998 07: 54 I have reviewed the films/images and agr ee with the above interpretation. Electronically signed by: John Cassidy MD [phone] 09:0 1 Robert Nick M.D. IMG DIAGNOSTIC IMAGING PROCE [facility] US Head (1998 4:08 PM CDT) Anatomical Region Laterality Modality Head N/A Ultrasound Specimen (Source) Anatomical Collection Method Collection Time Re ceived Time Location / / Volume Laterality 1998 4:08 PM CDT Narrative 1998 5:29 PM CDT 1998 16:08:00 ??Exam: US Cranial Pediatrics Indications: *PORTABLE*HEAD-R/O IVH ?1ST [id number] ORIGINAL REPORT - 1998 17:29:00 I:100.705 ??No [...] Electronically signed by: ?? Yoli Hickman MD. ??[phone] 17:29 Procedure Note Cecily Hickman M.D. - 09/06/2017Form atting of this note might be different from the original. 1998 16:08:00 Exam: US Cranial Pe diatrics Indications: *PORTABLE*HEAD-R/O IVH [facility] [id number] ORIGINAL REPORT - 1998 17:29:00 I:100.705 No definite evidence of germin al matrix hemorrhage. Ventricles are normal in size. There is increased echotexture in the periventricular white matter, more prominent on the right. While this may represent a normal halo, periventricular leukomalaci a cannot be excluded. No definite evidence of intraventricular hemorrhage. Corpus callosum is present. D:100.120 Electronically signed by: Yoli Hickman MD. [phone] 1 7:29 Robert Nick M.D. IMLucía [...] Electronically signed by: ?? Yoli Hickman MD. ??[phone] 08:03 Procedure Note Cecily Hickman M.D. [...] loops. Electronically signed by: Yoli Hickman MD. [phone] 0 8:03 Robert Nick M.D. IMG [...] Luna M.D. IMG DIAGNOSTIC IMAGING PROCE [facility] DX Infant Chest and Abdomen [...] bowel. Electronically signed by: ?? P. A. [place] ??[phone] [id number]) 1998 23:46 I have reviewed the films/images and agr ee with the above interpretation. Electronically signed by: ?? John ??Khanh MICHAEL ??[phone] 06:13 Procedure Note Kaye Cassidy M.D. [...] mid bowel. Electronically signed by: Jermaine Gamino [phone] ([id number]) 1998 2 3:46 I have reviewed the films/images and agr ee with the above interpretation. Electronically signed by: John Cassidy MD [phone] 06:1 3 Clinton GONZALEZ DIAGNOSTIC IMAGING PROCE DURES documented in this encounter Visit Diagnoses Not on filedocumented in this encounter
--- OUTSIDE RECORDS SUMMARY | 2022-02-18 09:37 | XMS_ITS | Encounter Summary ---
:1998 Author Organization [facility] Address [address] [place] [address] Care Team Providers Name Role Phone Unavailable [...] How often do you attend jainism or baptism 1 to 4 times per [...] Electronically signed by: ?? Yoli Hickman MD. ??[phone] 15:04 Procedure Note Cecily Hickman M.D. [...] 1998 12:29:00 ETT with tip at the dvaid. Moderate aissatou ateral granular infiltrates most prominent [...] AM 9 5:11 CDT PM CDT Narrative [facility] - 1998 9:09 AM CDT 1998 ?[id number] ?Ro ?09:09 ?? Subsq Order for NB: ?Blood Component ?R BC, Irradiated Leukoreduced ?CPDA-1, Divided ?Transfused ? 28 Jan 1999 ?Unit Number Id ? [id number] Procedure Note 09/15/2017 1998 [id number] Ro 09:09 Subsq Order for NB: Blood Component RBC, Irradiated Leukore duced CPDA-1, Divided Transfused 28 Jan 1999 Unit Number Id [id number] Historical Provider LAB HISTORICAL ORDERS Performing Organization Address City/State/ZIP Code Phon e Number [facility] - [address] [place] [address] [facility] Prepare Red Blood Cells (1998 9:08 AM CDT) Specimen Anatomical Collection Method Collection Time Receive d Time (Source) Location / / Volume Laterality 1998 9:08 AM 9 2:17 CDT PM CDT Narrative [facility] - 1998 9:08 AM CDT 1998 ?[id number] ?Ro ?09:08 ?? RBC TRF Order: ?ABO/RH ? O POS ?Antibody Screen ?N eg Procedure Note 09/15/2017 1998 [id number] Ro 09:08 RBC TRF Order: ABO/RH O POS Antibody Screen Neg Historical Provider BLOOD BANK PRODUCT ORDERABLE S Performing Organization Address [facility] Phon e Number [facility] - [address] ABORh, RBC (1998 9:08 AM CDT) Specimen Anatomical Collection Method Collection Time Receive d Time (Source) Location / / Volume Laterality 1998 9:08 AM 9 9:54 CDT AM CDT Narrative [facility] - 1998 9:08 AM CDT 1998 ?[id number] ?Ro ?09:08 ?? ABO and Rh Order (2): ?ABO/RH ? O POS Procedure Note 09/15/2017 1998 [id number] Ro 09:08 ABO and Rh Order (2): ABO/RH O POS Historical Provider LAB BLOOD BANK TEST ORDERABL ES Performing Organization Address [facility] Code Phon e Number [facility] - [address] DX Chest and Abdomen Portable 1 [...]
[2022-02-19 10:36] LABS: Strep B DNA Probe NEGATIVE (Negative)
== END 2022-02-18 09:34 | disposition home or self-care (01) ==
LOC: NFLDREF 09:33
PROVIDERS: Visit Provider Advanced Practice Midwife
DX: O24.419 Gestational diabetes mellitus in pregnancy, unspecified control (principal); Z3A.36 36 weeks gestation of pregnancy
CPT/HCPCS: 87081; 87653

== ENCOUNTER 2022-02-23 07:13 | Outpatient (CLI) | payer OTHER, SELFPAY ==
--- NOTE | 2022-02-23 07:15 | CRLHL7_ITS ---
For Patients: As a result of the Century Cures Act, medical imaging exams and procedure reports are released immediately into your electronic medical record. You may view this report before your referring provider. If you have questions, please contact your health care provider. INDICATION: GESTATIONAL DIABETES COMPARISON: 02/18/2022 TECHNIQUE: Real time rendon scale imaging of the fetus was performed. Without non-stress testing. FINDINGS: Sonographic imaging demonstrates a single living intrauterine gestation. Fetus demonstrates a regular cardiac rate of 129 beats per minute. Fetus has a vertex position. The amniotic fluid volume appears normal and there is a single deepest pocket measurement of 6.9 cm. The fetus was active and demonstrated normal breathing movements. There was normal flexion and extension of the trunk and extremities. IMPRESSION: Normal biophysical profile score of 8 out of 8. Dictated by Ruben Williamson MD @ 02/23/2022 9:23:19 AM (Electronically Signed)
--- OUTSIDE RECORDS SUMMARY | 2022-02-23 07:15 | XMS_ITS | Encounter Summary ---
:1998 Author Organization [facility] Address [address] [place] [address] Care Team Providers Name Role Phone Chaparro Payan P.A.-C. Primary Care Provider [phone] Reason for Referral Outpatient (Routine) - Closed Specialty Diagnoses / Procedures Referred By Contact Refer red To Contact Diagnoses Bicuspid Aortic Valve (HCC) Americo Bear M.D. [facility] Procedures Echo Transthoracic (TTE) - Adult Congenital [address] [place], [place] [address] Referral ID Status Reason Start Date Expiration Date Visits Requ ested Visits Authorized [id number] Closed 09/11/2021 09/11/2022 1 1 Reason for Visit Outpatient (Routine) - Closed Specialty Diagnoses / Procedures Referred By Contact Refer red To Contact Diagnoses Bicuspid Aortic Valve (HCC) Americo Bear M.D. [facility] Procedures Echo Transthoracic (TTE) - Adult Congenital [address] [place], [place] [address] Referral ID Status Reason Start Date Expiration Date Visits Requ ested Visits Authorized [id number] Closed 09/11/2021 09/11/2022 1 1 Encounter Details Date Type Department Care Team Description 09/16/2021 Hospital Encounter Department of Americo Bear Bicuspi d Aortic Cardiovascular Diseases Silvio Valve (HCC) in [facility] marya [address] [facility] [address] [place] [id number] Social History Tobacco Use Types Packs/Day Years [...] 08/02/2020 relatives? How often do you attend baptism or worship 1 to 4 times per year 08/02/2020 services? Do you belong to any clubs or organizations such No 08/02/2020 as baptism groups, unions, fraternal or athletic groups, or [...] mg tablet Take 1 tablet by 0 vtctusc-Qd-csrt-FA (VINATE mouth daily. ONE) 60 mg iron-1 [...] COLOR AND DOPPLER (09/16/2021 1:54 PM CDT) [facility] Method Time Signature Ejection Fraction 64 [...] For the complete report, see the Order-L Exmovere Documents. Final Impressions 1. Bicuspid aortic valve [...] as of this encounter Care Teams Cookie Mixer Helper Relationship Specialty Start Date End Date Chaparro Payan P.A.-C. PCP - General 02/05/[address] [place] [phone] documented as of this encounter
--- OUTSIDE RECORDS SUMMARY | 2022-02-23 07:15 | XMS_ITS | Encounter Summary ---
:1998 Author Organization [facility] Address [address] [place] [address] Care Team Providers Name Role Phone Chaparro Payan P.A.-C. Primary Care Provider [phone] Reason for Visit Reason Comments COVID Inquiry Encounter Details Date Type Department Care Team Description 06/23/2020 Clinical Communication [facility] [place] [facility] Inquiry Cardiovascular Surgery Provider in [place], [place] [address] [place] [address] Social History Tobacco Use Types [...] 08/02/2020 relatives? How often do you attend holiness or judaism 1 to 4 times per year 08/02/2020 services? Do you belong to any clubs or organizations such No 08/02/2020 as holiness groups, unions, fraternal or athletic groups, or [...] LABORATORY CONFIRMED case ofCOVID-19?: Yes exposure noted. [place] patient, instruct to quarantine, testing indicated (End Screening) Testing Recommendation Endpoint Is testing recommended? : Recommended to test Plan: Endpoint recommendation: Testing indicated, advised to be swabbed for COVID-19 Only , sent to [facility] located at [address] [place] [address]. The entrance is on the north side of the building. You must call [phone] for an appointment time.Testing hours are Daily [...] sending patient for testing in [facility], route encounter to the correct testing pool. NG COOKER documented in this encounter Plan of Treatment Not on filedocumented as of this encounter Visit Diagnoses Not on filedocumented in this encounter Additional Health Concerns Infection Onset Date Last Indicated Resolved Time COVID19 Pending 06/23/2020 06/23/2020 06/24/2020 2:18 PM CASING COOKER Assessment Noted Time PHQ-9 Depression Total Score: 8 10/13/2017 12:58 PM CD T documented as of this encounter Care Teams Recovery Assistant Relationship Specialty Start Date End Date Chaparro Payan P.A.-C. PCP - General 02/05/[address] [place] [phone] documented as of this encounter
--- OUTSIDE RECORDS SUMMARY | 2022-02-23 07:15 | XMS_ITS | Encounter Summary ---
:2000 Author Organization [facility] Address [address] [place] [address] Care Team Providers Name Role Phone Chaparro Payan P.A.-C. Primary Care Provider [phone] Encounter Details Date Type Department Care Team Description 08/30/2020 Orders Only [facility] Sa daina Buckley M.D. [address] [place], [place] [phone] (Wo rk) Social History [...] How often do you attend jew or islam 1 to 4 times per [...] documented as of this encounter Care Teams Fryer Operator Relationship Specialty Start Date End Date Chaparro Payan P.A.-C. PCP - General 02/05/[address] [place] [phone] documented as of this encounter
--- OUTSIDE RECORDS SUMMARY | 2022-02-23 07:15 | XMS_ITS | Encounter Summary ---
:[address] [facility] Address [address] [place] [address] Care Team Providers Name Role Phone Chaparro Payna P.A.-C. Primary Care Provider [phone] Encounter Details Date Type Department Care Team Description 02/28/2021 Immunization Department of [facility] Reed Barillas For COVID-19 Medicine, Chandrakant Walls M.D. Vaccine Immunization Clinic, in [address] [address] [place], [place] [phone] (Work) [phone] Social History Tobacco Use Types Packs/Day Years [...] 08/02/2020 relatives? How often do you attend sikh or gnosticism 1 to 4 times per year 08/02/2020 services? Do you belong to any clubs or organizations such No 08/02/2020 as sikh groups, unions, fraternal or athletic groups, or [...] documented as of this encounter Care Teams Web Production Manager Relationship Specialty Start Date End Date Chaparro Payan P.A.-C. PCP - General 02/05/[address] [place] [phone] documented as of this encounter
--- OUTSIDE RECORDS SUMMARY | 2022-02-23 07:15 | XMS_ITS | Clinical Summary ---
:2000 Author Organization [facility] Address [address] [place] [address] Care Team Providers Name Role Phone Chaparro Payan P.A.-C. Primary Care Provider [phone] Source Comments Patient records contain information from all sites at [facility]. For routine questions regarding patient records, call [phone] during business hours, M-F 8:00 AM - 5:00 PM Central Time. Record requests for emergency care only can be directed to [phone] at any time.[facility] Allergies Active Allergy Reactions Severity Noted Date Comments Penicillins Rash 12/19/2007 Medications Medication Sig Dispensed Refills Start Date End Date Status ibuprofen Take 800 mg by 0 Activ e (ADVIL,MOTRIN) 200 mg mouth. tablet albuterol 90 Inhale 2 puffs as 0 09/03/2021 Active mcg/actuation inhaler needed. Take 1 tablet by 0 Act navarro sklvchu-Rq-nuzr-FA mouth daily. (VINATE ONE) 60 mg iron-1 mg per tablet Active Problems Patient Care Coordination Note Formatting of this note might be differe nt from the original. Spouse: no Children: no Work: no AYAZ on file for mom Amy ([phone]) Problem Noted Date Overweight Body Mass Index [...] How often do you attend amish or oriental orthodox 1 to 4 times [...] CDT Respiratory Rate 16 08/02/2020 2:23 PM MARKET SALES MANAGER Oxygen Saturation 100% 09/16/2021 8:36 AM CDT [...] Address T ype Group Dates PREFERREDONE PREFERREDONE [id number] 2019-Pre [phone] PPO ADMINISTRATIVE ADMINISTRATIVE sent [phone] [place] [phone] Care Teams Ethnic Origins Teacher Relationship Specialty Start Date End Date Chaparro Payan P.A.-C. PCP - General 02/05/18 [address] [place] [phone]
--- OUTSIDE RECORDS SUMMARY | 2022-02-23 07:15 | XMS_ITS | Encounter Summary ---
:2000 Author Organization [facility] Address [address] [place] [address] Care Team Providers Name Role Phone Chaparro Payan P.A.-C. Primary Care Provider [phone] Reason for Visit Reason Onset Date Comments Outpatient COVID-19 Testing 07/12/2020 Encounter Details Date Type Department Care Team Description 07/12/2020 External Outreach Department of Family Wood Guzman Contact With And Medicine, [facility] Abdulkadir Winter D.O. (Suspected) Exposure Building, in [address] To COVID-19 (Primary [place], [place] Dx) [address] [facility] [address] [place], [place] [phone] [address] (Work) [phone] Social History Tobacco Use Types Packs/Day Years [...] How often do you attend yazdanism or voodoo 1 to 4 times per [...] PM CST Encounter created for COVID-19 screening. Y DRY OPERATOR documented in this encounter Plan of Treatment Not on filedocumented as of this encounter Procedures Procedure Name Priority Date/Time Associated Diagnosis Comme nts SARS CORONAVIRUS-2 Routine 07/12/2020 4:07 PM Contact With And Results for this RNA, V SPRAY DRY OPERATOR (Suspected) Exposure procedu re are in To COVID-19 the results section. documented in this encounter Results SARS Coronavirus-2 RNA, V Asymptomatic (07/12/2020 4:07 PM SPRAY DRY OPERATOR) [facility] Method Time Signature SARS-CoV-2 Swab, 07/13/2020 MKTO Specimen Nasopharynx 1:56 AM SPRAY DRY OPERATOR Source SARS CoV-2 Undetected Undetected 07/13/2020 MKTO RNA, TMA 1:56 AM SPRAY DRY OPERATOR Comment: SARS-CoV-2 RNA absent. This result does not rule out COVID-19 in the patient, as the sensitivity of the test depends o n the timing of the specimen collection and the quality of the specim en. Result should be correlated with patient's history and clinical presentat ion. ----ADDITIONAL INFORMATION---- This molecular amplification test was pe rformed using the Aptima SARS-CoV-2 assay ([employer] on the Plumzis tem under emergency use authorization (EUA) by the U.S. Food and Drug Administ ration. Fact sheets for this EUA assay can be fo und at the following links: For Healthcare Providers: https://www.fd a.gov/media/751867/download For Patients: https://www.fda.gov/media/ 806896/download Specimen Anatomical Collection Method Collection Time Receive d Time (Source) Location / / Volume Laterality Varies 07/12/2020 4:07 PM 02/12/202 1 8:44 (Nasopharynx) SPRAY DRY OPERATOR PM SPRAY DRY OPERATOR Wood Guzman D.O. LAB MICROBIOLOGY - GENERAL O JIMMY Performing Organization Address City/State/ZIP Code Phon e Number [facility] [address] [place] [phone] [place] [address] [place] [address] System [address] documented in this encounter Visit Diagnoses Diagnosis Contact With And (Suspected) Exposure To COVID-19 - Primary documented in this encounter Additional Health Concerns Infection Onset Date Last Indicated Resolved Time COVID19 Pending 07/12/2020 07/12/2020 07/13/2020 1:56 AM SPRAY DRY OPERATOR Assessment Noted Time PHQ-9 Depression Total Score: 8 10/13/2017 12:58 PM CD T documented as of this encounter Care Teams Labeling Strategist Relationship Specialty Start Date End Date Chaparro Payan P.A.-C. PCP - General 02/05/[address] [place] [phone] documented as of this encounter
--- OUTSIDE RECORDS SUMMARY | 2022-02-23 07:15 | XMS_ITS | Encounter Summary ---
:2000 Author Organization [facility] Address [address] [place] [address] Care Team Providers Name Role Phone Chaparro Payan P.A.-C. Primary Care Provider [phone] Encounter Details Date Type Department Care Team Description 08/25/2021 Orders Only Department of Mónica Noe High Risk Obstetrics and J, R.N. (Primary Dx) Gynecology in [address] [place] [address] [place] [address] [place], [place] [phone] (Work) [phone] Social History Tobacco Use Types Packs/Day Years [...] How often do you attend holiness or adventist 1 to 4 times per [...] OR GROWTH ABEL Exam Site: [facility]139 Plurality: 1 OBHx: [G:(1)] [...] Read by Wing Willett on 8:30:37 AM. Events Solutions Consultant: ??Wing Willett Thank You For This Referral Procedure Note Yvonne Sanchez M.D. - 09/16/2021Forma tting of this note might be different from the original. CITLALY HOLLAND OB Exam, 09/16/2021 EXAM INFORMATION Patient Name: CITLALY HOLLAND : 2000 Age: 20 yrs Sex: Female Ref Phys: AMERICO BEAR Exam Date: 09/16/2021 Procedure: US OB FOLLOW-UP AND OR GROWTH ABEL Exam Site: [facility]139 Plurality: 1 OBHx: [G:(1)] [...] Read by Wing Willett on 8:30:37 AM. Events Solutions Consultant: Wing Willett Thank You For This Referral Americo Bear M.D. IMG OB US PROCEDURES documented in this encounter Visit Diagnoses Diagnosis High Risk (HCC) - Primary High Risk (HCC) documented in this encounter Additional Health Concerns Assessment Noted Time PHQ-9 Depression Total Score: 8 10/13/2017 12:58 PM CD T documented as of this encounter Care Teams Software Configuration Manager Relationship Specialty Start Date End Date Chaparro Payan P.A.-C. PCP - General 02/05/[address] [place] [phone] documented as of this encounter
--- OUTSIDE RECORDS SUMMARY | 2022-02-23 07:15 | XMS_ITS | Encounter Summary ---
:2000 Author Organization [facility] Address [address] [place] [address] Care Team Providers Name Role Phone Chaparro Payan P.A.-C. Primary Care Provider [phone] Reason for Visit Reason Comments COVID Inquiry Encounter Details Date Type Department Care Team Description 07/12/2020 Clinical Communication Department of KATHIE Sewell [facility] [employer], [address] [address] [place], [place] [phone] (Work) [phone] Social History Tobacco Use Types Packs/Day Years [...] How often do you attend mandaen or episcopalian 1 to 4 times per [...] LABORATORY CONFIRMED case ofCOVID-19?: Yes exposure noted. [place] patient, instruct to quarantine, testing indicated (End Screening) Testing Recommendation Endpoint Is testing recommended? : Recommended to test Plan: Endpoint recommendation: Testing indicated, advised to be swabbed for COVID-19 Only , sent to [facility] located at [address] [place] [address]. The entrance is on the north side of the building. You must call [phone] during the hours of 7am to 6 [...] sending patient for testing in T or [facility], route encounter to the correct testing pool. CTOR OF EVENT MARKETING documented in this encounter Plan of Treatment Not on filedocumented as of this encounter Visit Diagnoses Not on filedocumented in this encounter Additional Health Concerns Assessment Noted Time PHQ-9 Depression Total Score: 8 10/13/2017 12:58 PM CD T documented as of this encounter Care Teams Landscape Laborer Relationship Specialty Start Date End Date Chaparro Payan P.A.-C. PCP - General 02/05/[address] [place] [phone] documented as of this encounter
--- OUTSIDE RECORDS SUMMARY | 2022-02-23 07:15 | XMS_ITS | Encounter Summary ---
:2000 Author Organization [facility] Address [address] [place] [address] Care Team Providers Name Role Phone Chaparro Payan P.A.-C. Primary Care Provider [phone] Reason for Referral Specialty Diagnoses / Procedures Referred By Contact Refer red To Contact Chaparro Payan P. A.-C. [facility] Region [address] [place] [address] Referral ID Status Reason Start Date Expiration Date Visits Requ ested Visits Authorized RETE STONE FABRICATOR Encounter Details Date Type Department Care Team Description 07/30/2021 Orders Only [facility] PCP [facility] Chaparro Payan P.A.-C. [address] [place] [phone] (Wo rk) Social History Tobacco [...] How often do you attend confucianist or mandaeism 1 to 4 times per [...] documented as of this encounter Care Teams Service Station Console Operator Relationship Specialty Start Date End Date Chaparro Payan P.A.-C. PCP - General 02/05/[address] [place] [phone] documented as of this encounter
--- OUTSIDE RECORDS SUMMARY | 2022-02-23 07:15 | XMS_ITS | Encounter Summary ---
:2000 Author Organization [facility] Address [address] [place] [address] Care Team Providers Name Role Phone Chaparro Payan P.A.-C. Primary Care Provider [phone] Reason for Visit Reason Onset Date Comments Left Without Being Seen 09/16/2021 Appointment Request (Routine) - Authorized Specialty Diagnoses / Procedures Referred By Contact Refer red To Contact Maternal and Diagnoses Bicuspid Aortic Valve (HCC) Abnormal Ultrasound Jay Kebede, [facility] Audra GillilandNGurdeep [address] [place] [address] Referral ID Status Reason Start Date Expiration Date Visits V isits Requested Authorized [id number] Authorized 08/25/2021 08/25/2022 3 3 Encounter Details Date Type Department Care Team Description 09/16/2021 Comprehensive Visit Department of Shelbi Tse Proce dure And Obstetrics and M.S., CGC Treatment Not Gynecology in [address] [place] [address] Carried Out Due To [place], [place] Patient Leaving [address] [place] [phone] Prior To Being Seen [place], [place] [phone] By [facility] [phone] (Work) Provider (Primary [phone] Dx) (Fax) Social History Tobacco Use Types [...] How often do you attend christianity or sikh 1 to 4 times per [...] documented as of this encounter Care Teams Golf Course Manager Relationship Specialty Start Date End Date Chaparro Payan P.A.-C. PCP - General 02/05/[address] [place] [phone] documented as of this encounter
--- OUTSIDE RECORDS SUMMARY | 2022-02-23 07:15 | XMS_ITS | Encounter Summary ---
:2000 Author Organization [facility] Address [address] [place] [address] Care Team Providers Name Role Phone Chaparro Payan P.A.-C. 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 PCP - General 02/05/[address] [place] [phone] documented as of this encounter
--- OUTSIDE RECORDS SUMMARY | 2022-02-23 07:15 | XMS_ITS | Encounter Summary ---
:2000 Author Organization [facility] Address [address] [place] [address] Care Team Providers Name Role Phone Chaparro Payan P.A.-C. Primary Care Provider [phone] Encounter Details Date Type Department Care Team Description 09/16/2021 Hospital Encounter Department of Americo Bear [facility] Obstetrics and MJeronimo ([facility]) Gynecology in [address] [place] [address] [place] [phone] [place], [place] [phone] (Work) [phone] Social History Tobacco Use Types Packs/Day Years [...] 08/02/2020 relatives? How often do you attend alevism or sabianism 1 to 4 times per year 08/02/2020 services? Do you belong to any clubs or organizations such No 08/02/2020 as alevism groups, unions, fraternal or athletic groups, or [...] mg tablet Take 1 tablet by 0 estggbs-Wi-hsvq-FA (VINATE mouth daily. ONE) 60 mg iron-1 [...] FOLLOW-UP AND OR GROWTH ABEL Exam Site: [facility] OB [facility]139 Plurality: 1 OBHx: [G:(1)] ?F Trm:() Pre:() C-Sec:() Ab-I:( ) Ab-S:() Ect:() Multi:() Joycelyn:() INDICATIONS FOR SONOGRAPHY Maternal bicuspid aortic valve. ?? IMPRESSION Bael . Size is concordant with dates. No [...] Read by Wing Willett on 8:30:37 AM. Ice Maker: ??Wing Willett Thank You For This Referral Procedure Note Yvonne Sanchez M.D. - 09/16/2021Forma tting of this note might be different from the original. CITLALY HOLLAND OB Exam, 09/16/2021 EXAM INFORMATION Patient Name: CITLALY HOLLAND : 2000 Age: 20 yrs Sex: Female Ref Phys: AMERICO BEAR Exam Date: 09/16/2021 Procedure: US OB FOLLOW-UP AND OR GROWTH ABEL Exam Site: [facility]139 Plurality: 1 OBHx: [G:(1)] F [...] by Wing Willett on 022 8:30:37 AM. Ice Maker: Wing Willett Thank You For This Referral Americo Bear M.D. IMG OB US PROCEDURES documented in this encounter Visit Diagnoses Diagnosis High Risk (HCC) documented in this encounter Additional Health Concerns Assessment Noted Time PHQ-9 Depression Total Score: 8 10/13/2017 12:58 PM CD T documented as of this encounter Care Teams Lead Principal Technical Architect Relationship Specialty Start Date End Date Chaparro Payan P.A.-C. PCP - General 02/05/18 [address] [place] [phone] documented as of this encounter
--- OUTSIDE RECORDS SUMMARY | 2022-02-23 07:15 | XMS_ITS | Encounter Summary ---
:2000 Author Organization [facility] Address [address] [place] [address] Care Team Providers Name Role Phone Chaparro Payan P.A.-C. Primary Care Provider [phone] Reason for Referral Outpatient (Routine) - Closed Specialty Diagnoses / Procedures Referred By Contact Refer red To Contact Family Medicine Chaparro Payan P. A.-C. [address] [phone] Referral ID Status Reason Start Date Expiration Date Visits Requ ested Visits Authorized [id number] Closed 08/02/2020 08/02/2021 1 1 BOSS Reason for Visit Reason Comments Annual Exam No concerns at this time. Appointment Request (Routine) - Closed Specialty Diagnoses / Procedures Referred By Contact Refer red To Contact Family Medicine Referral ID Status Reason Start Date Expiration Date Visits Requ ested Visits Authorized [id number] Closed 07/26/2020 07/26/2021 1 1 Encounter Details Date Type Department Care Team Description 08/02/2020 Comprehensive Visit Department of Shadia Payan Aortic Valve (HCC) (Primary Dx); Chaparro Rock P.A.-C. General Medical Examination Adult; [facility], [address] [place] [address] Pap Smear Examination; in [place], [place] Screening For Venereal Disease; [place] [address] [facility] [address] [phone] [place], [place] (Work) [phone] Social History Tobacco Use [...] How often do you attend confucianism or caodaism 1 to 4 times per [...] Comments Blood Pressure 98/64 08/02/2020 2:23 PM CAMP BOSS Pulse 84 08/02/2020 2:23 PM CAMP BOSS Temperature 36.9 ??C (98.4 ??F) 08/02/2020 2:23 PM CAMP BOSS Respiratory Rate 16 08/02/2020 2:23 PM CAMP BOSS Oxygen Saturation - - Inhaled Oxygen Concentration - - Weight 88.5 kg (195 lb 1.7 oz) 08/02/2020 2:23 PM CAMP BOSS Height 161.1 cm (5' 3.43) 08/02/2020 2:23 PM CAMP BOSS Body Mass Index 34.1 08/02/2020 2:23 PM CAMP BOSS documented in this encounter H&P Notes Chaparro [...] at a later date. Chaparro Payan P.A.-C. BOSS documented in this encounter Plan of Treatment Scheduled Referrals Name Type Priority Associated Diagnoses Order S [facility] Medicine Outpatient Referral Routine Expec sonal: office visit 08/02/2020 (clinic) (Approximate), Expires: 08/03/2023 documented as of this encounter Procedures Procedure Name Priority Date/Time Associated Diagnosis Comme nts CHLAMYDIA/GONORRHOE Routine 08/02/2020 3:32 PM Pap Smear Re sults for this AE AMPLIFIED RNA CAMP BOSS Examination procedure are in Screening For the results Venereal Disease section. THINPREP SCREEN Routine 08/02/2020 3:30 PM Pap Smear Result s for this CAMP BOSS Examination procedure are in Screening For the results Venereal Disease section. documented in this encounter Results Chlamydia / Gonorrhoeae Amplified RNA (08/02/2020 3:32 PM CAMP BOSS) Patholo gist Method Time Signature Source Thin Prep 08/07/2020 DTL Vial, 5:29 PM CAMP BOSS Cervix/Endoc ervix Chlamydia Negative Negative 08/07/2020 DTL trachomatis 5:29 PM CAMP BOSS amplified RNA Source Thin Prep 08/07/2020 DTL Vial, 5:29 PM CAMP BOSS Cervix/Endoc ervix Neisseria Negative Negative 08/07/2020 DTL gonorrhoeae 5:29 PM CAMP BOSS amplified RNA Specimen Anatomical Collection Method Collection Time Receive d Time (Source) Location / / Volume Laterality Varies 08/02/2020 3:32 PM (Cervix/Endocerv CAMP BOSS 10:15 AM CS T ix) Chaparro Payan P.A.-C. LAB MICROBIOLOGY - GENERAL O RDERABLES Performing Organization Address City/State/ZIP Code Phon e Number [facility] - [address] [place] [phone] [facility] [place] [address] [facility] 200 [facility] ThinPrep Screen (08/02/2020 3:30 PM CAMP BOSS) Component Value Ref Test Analysis Performed Pathologis [...] AM tives CDT Report BRIAN Ward(ASCP) 08/13/2020 [facility] electronically I verify that I have examined all relevant slides/ma terials 9:16 AM signed by for the specimen(s) and rendered or confirmed the diagnosis. CDT Interpretation Cervical/Endocervical ??(ThinPrep): 08/13/2020 HK Satisfactory for Evaluation 9:16 AM Negative for Intraepithelial Lesion or Malignancy CDT Specimen Anatomical Collection Method Collection Time Receive d Time (Source) Location / / Volume Laterality Varies 08/02/2020 3:30 PM 9:06 (Cervix/Endocerv CAMP BOSS AM CAMP BOSS ix) Narrative This result has an attachment that is no t available. Chaparro Payan P.A.-C. LAB PAP PATHDX ORDERABLES Performing Organization Address City/State/ZIP Code Phon e Number [facility] [address] [place] [address] [facility] [address] [place] [address] documented in this encounter Visit Diagnoses Diagnosis Bicuspid Aortic Valve (HCC) - Primary General Medical Examination Adult Pap Smear Examination Screening For Venereal Disease Nevus documented in this encounter Additional Health Concerns Assessment Noted Time PHQ-9 Depression Total Score: 8 10/13/2017 12:58 PM CD T documented as of this encounter Care Teams Slag Mixer Relationship Specialty Start Date End Date Chaparro Payan P.A.-C. PCP - General 02/05/[address] [place] [phone] documented as of this encounter
--- OUTSIDE RECORDS SUMMARY | 2022-02-23 07:15 | XMS_ITS | Clinical Summary ---
:2000 Author Organization [facility] [place] [address] Care Team Providers Name Role Phone Chaparro [...] and a bicuspid aortic valve. Follow up [facility] Estimated Date of Delivery Comments Yes [...] 157.5 cm (5' 2) 07/26/2020 1:58 AM AUDIT ANALYST Body Mass Index 35.43 07/26/2020 1:58 AM AUDIT ANALYST Plan of Treatment Health Maintenance Due Date [...] Type Group BLUE CROSS BLUE CROSS OF [id number] 2015-Present [address] [place] [address] PREFERRED ONE PREFERRED ONE [id number] 2019-Present [address] [place] [address] [phone] [employer] [address] (Home) [place] [address] [address] Personal/Famil Mother [phone] (Home) [address] [place] [phone] [employer] Employer 05/31/2000 [phone] [address] [employer] 4 [phone] (Home) [place] [address] [employer] Occ Employer 04/10/1911 [phone] ATTN H [employer] [id number] RESOURCES (Home) [address] [place] [address] [phone] [address] (Work) [place] MELVIN [phone] Care Teams Public Safety Telecommunicator Relationship Specialty Start Date End Date Chaparro Payan PA PCP - General 09/24/[address] [place] [address] [place] [phone]
--- OUTSIDE RECORDS SUMMARY | 2022-02-23 07:15 | XMS_ITS | Encounter Summary ---
:2000 Author Organization [facility] Address [address] [place] [address] Care Team Providers Name Role Phone Chaparro Payan P.A.-C. Primary Care Provider [phone] Reason for Referral Outpatient (Routine) - Closed Specialty Diagnoses / Procedures Referred By Contact Refer red To Contact Diagnoses Lesion Skin Chest Chaparro Payan P.A.-C. Procedures Lesion Excision and Closure [address] [place] [phone] Referral ID Status Reason Start Date Expiration Date Visits Requ ested Visits Authorized [id number] Closed 08/12/2020 08/12/2021 1 1 Reason for Visit Reason Comments Suspicious Skin Lesion R upper breast mole removal Outpatient (Routine) - Closed Specialty Diagnoses / Procedures Referred By Contact Refer red To Contact Family Medicine Chaparro Payan P. A.-C. [facility] [address] [place] [phone] Referral ID Status Reason Start Date Expiration Date Visits Requ ested Visits Authorized [id number] Closed 08/02/2020 08/02/2021 1 1 Encounter Details Date Type Department Care Team Description 08/12/2020 Office Visit Department of Family Chaparro Payan Le sion Skin Chest Medicine [facility] (Primary Dx[facility], in [address] [address] SWEETIE CORTÉS [phone] (Work) [phone] Social History Tobacco Use Types Packs/Day Years [...] How often do you attend restorationist or restorationist 1 to 4 times per [...] Component Value Ref Test Analysis Performed At [facility] Range Method Time Signature 08/14/2020 JULIO [...] 0.1 cm light mcknight skin punch. [facility]. [facility] Interpretation FINAL DIAGNOSIS 08/14/2020 MKTO A. Skin, [...] LAB SURG PATH ORDERABLES Performing Organization Address [facility]/State/ZIP Code Phon e Number [facility]- [address] [place] [address] [place] [address] System in [address] Lesion Excision and Closure (08/12/2020 11:00 [...] documented as of this encounter Care Teams Mental Hygienist Relationship Specialty Start Date End Date Chaparro Payan P.A.-C. PCP - General 02/05/18 [address] [place] [phone] documented as of this encounter
--- OUTSIDE RECORDS SUMMARY | 2022-02-23 07:15 | XMS_ITS | Encounter Summary ---
:2000 Author Organization [facility] Address [address] [place] [address] Care Team Providers Name Role Phone Chaparro Payan P.A.-C. Primary Care Provider [phone] Encounter Details Date Type Department Care Team Description 06/23/2020 Admin Visit Department of Family Medicine, [address] [address] [facility] [place] [phone] Social History Tobacco Use Types Packs/Day Years [...] 08/02/2020 relatives? How often do you attend shinto or orthodoxy 1 to 4 times per year 08/02/2020 services? 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 PCP - General 02/05/[address] [place] [phone] documented as of this encounter
--- OUTSIDE RECORDS SUMMARY | 2022-02-23 07:15 | XMS_ITS | Encounter Summary ---
:2000 Author Organization [facility] Address [address] [place] [address] Care Team Providers Name Role Phone Chaparro Payan P.A.-C. Primary Care Provider [phone] Reason for Visit Reason Onset Date Comments Testing For Upper Respiratory Virus Symptoms 06/23/2020 Encounter Details Date Type Department Care Team Description 06/23/2020 External Outreach Department of [facility] Internal Medicine in [place], [place] (Suspected) Exposure [place], [place] [address] [place] [address] To COVID-19 (Primary [address] [place], [place] Dx) [place] [phone] Social History Tobacco Use Types Packs/Day Years [...] How often do you attend mandaen or bahai 1 to 4 times per [...] Influenza, RSV, and/or Group A Strep testing. SHOVER documented in this encounter Plan of Treatment Not on filedocumented as of this encounter Procedures Procedure Name Priority Date/Time Associated Diagnosis Comme nts SARS CORONAVIRUS-2 Routine 06/23/2020 1:35 PM Contact With And Results for this RNA, V PAN SHOVER (Suspected) Exposure procedu re are in To COVID-19 the results section. documented in this encounter Results SARS Coronavirus-2 RNA, V Symptomatic (06/23/2020 1:35 PM PAN SHOVER) [facility] Method Time Signature SARS-CoV-2 Swab, 06/24/2020 MKTO Specimen Nasopharynx 2:17 PM PAN SHOVER Source SARS CoV-2 Undetected Undetected 06/24/2020 MKTO RNA, TMA 2:17 PM PAN SHOVER Comment: SARS-CoV-2 RNA absent. This result does not rule out COVID-19 in the patient, as the sensitivity of the test depends o n the timing of the specimen collection and the quality of the specim en. Result should be correlated with patient's history and clinical presentat ion. ----ADDITIONAL INFORMATION---- This molecular amplification test was pe rformed using the Aptima SARS-CoV-2 assay ([employer] on the Twilios tem under emergency use authorization (EUA) by the U.S. Food and Drug Administ ration. Fact sheets for this EUA assay can be fo und at the following links: For Healthcare Providers: https://www.fd a.gov/media/841895/download For Patients: https://www.fda.gov/media/ 103075/download Specimen Anatomical Collection Method Collection Time Receive d Time (Source) Location / / Volume Laterality Varies 06/23/2020 1:35 PM 6:28 (Nasopharynx) PAN SHOVER AM PAN SHOVER Wood Guzman D.O. LAB MICROBIOLOGY - GENERAL O RDERABLES Performing Organization Address City/State/ZIP Code Phon e Number [facility]- [address] [place] [address] [place] [address] System in [place] [address] [place] [address] documented in this encounter Visit Diagnoses Diagnosis Contact With And (Suspected) Exposure To COVID-19 - Primary documented in this encounter Additional Health Concerns Infection Onset Date Last Indicated Resolved Time COVID19 Pending 06/23/2020 06/23/2020 06/24/2020 2:18 PM PAN SHOVER Assessment Noted Time PHQ-9 Depression Total Score: 8 10/13/2017 12:58 PM CD T documented as of this encounter Care Teams Hand Worker Relationship Specialty Start Date End Date Chaparro Payan P.A.-C. PCP - General 02/05/[address] [place] [phone] documented as of this encounter
--- OUTSIDE RECORDS SUMMARY | 2022-02-23 07:15 | XMS_ITS | Encounter Summary ---
:2000 Author Organization [facility] Address [address] [place] [address] Care Team Providers Name Role Phone Chaparro Payan P.A.-C. Primary Care Provider [phone] Reason for Referral Specialty Diagnoses / Procedures Referred By Contact Refer red To Contact [facility] winnie [facility] Region [address] [place] [phone] Referral ID Status Reason Start Date Expiration Date Visits Requ ested Visits Authorized Reason for Visit Appointment Request (Routine) - Closed Specialty Diagnoses / Procedures Referred By Contact Refer red To Contact Family Medicine Referral ID Status Reason Start Date Expiration Date Visits Requ ested Visits Authorized [id number] Closed 01/29/2021 01/29/2022 1 1 Encounter Details Date Type Department Care Team Description 02/07/2021 Immunization Department of [facility] er For COVID-19 Medicine, [place] [facility]munization [facility], in [facility] (Primar y Dx) [place] [address] [place] [phone] Social History Tobacco Use Types Packs/Day [...] How often do you attend methodist or religion 1 to 4 times per [...] documented as of this encounter Care Teams Design Assembler Relationship Specialty Start Date End Date Chaparro Payan P.A.-C. PCP - General 02/05/[address] [place] [phone] documented as of this encounter
--- OUTSIDE RECORDS SUMMARY | 2022-02-23 07:15 | XMS_ITS | Encounter Summary ---
:2000 Author Organization [facility] Address [address] [place] [address] Care Team Providers Name Role Phone Chaparro Payan P.A.-C. Primary Care Provider [phone] Encounter Details Date Type Department Care Team Description 03/28/2020 Admin Visit Department of Family Medicine, [address] [address] [facility] [phone] Social History Tobacco Use Types Packs/Day Years [...] 08/02/2020 relatives? How often do you attend rastafari or orthodox 1 to 4 times per year 08/02/2020 services? Do you belong to any clubs or organizations such No 08/02/2020 as rastafari groups, unions, fraternal or athletic groups, or [...] documented as of this encounter Care Teams Bus Girl Relationship Specialty Start Date End Date Chaparro Payan P.A.-C. PCP - General 02/05/[address] [place] [phone] documented as of this encounter
--- OUTSIDE RECORDS SUMMARY | 2022-02-23 07:15 | XMS_ITS | Encounter Summary ---
:2000 Author Organization [facility] Address [address] [place] [address] Care Team Providers Name Role Phone Chaparro Payan P.A.-C. Primary Care Provider [phone] Reason for Visit Reason Comments Missed phone Encounter Details Date Type Department Care Team Description 09/10/2021 Clinical Communication Department of Americo Bear Mis sed phone Obstetrics and M.D. 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 PCP - General 02/05/[address] [place] [phone] documented as of this encounter
--- OUTSIDE RECORDS SUMMARY | 2022-02-23 07:15 | XMS_ITS | Encounter Summary ---
:2000 Author Organization [facility] Address [address] [place] [address] Care Team Providers Name Role Phone Chaparro Payan P.A.-C. Primary Care Provider [phone] Reason for Referral Outpatient (Routine) - Closed Specialty Diagnoses / Procedures Referred By Contact Refer red To Contact Diagnoses Bicuspid Aortic Valve (HCC) Americo Bear M.D. [facility] Procedures Echo Transthoracic (TTE) - Adult Congenital [address] [place] [phone] Referral ID Status Reason Start Date Expiration Date Visits Requ ested Visits Authorized [id number] Closed 09/11/2021 09/11/2022 1 1 Reason for Visit Appointment Request (Routine) - Authorized Specialty Diagnoses / Procedures Referred By Contact Refer red To Contact Maternal and Diagnoses Bicuspid Aortic Valve (HCC) Abnormal Ultrasound [facility] Sonya Gilliland.NGurdeep [address] [place] [address] Referral ID Status Reason Start Date Expiration Date Visits V isits Requested Authorized [id number] Authorized 08/25/2021 08/25/2022 3 3 Encounter Details Date Type Department Care Team Description 09/16/2021 Routine Department of Americo Bear Bicuspid Aortic Valve Obstetrics and Silvio (HCC) (Primary Dx) Gynecology in [address] [place], [place] [address] [place] [place] [phone] [place], [place] [phone] (Work) [phone] Social History Tobacco Use Types Packs/Day Years [...] How often do you attend hoahaoism or zoroastrianism 1 to 4 times per [...] for the very basics like Not v km hard 08/02/2020 food, housing, medical care, and [...] COLOR AND DOPPLER (09/16/2021 1:54 PM CDT) [facility] Method Time Signature Ejection Fraction 64 MC [...] original. For the complete report, see the [employer] Documents. Final Impressions 1. Bicuspid aortic valve [...] as of this encounter Care Teams Poultry Field Service Technician Relationship Specialty Start Date End Date Chaparro Payan P.A.-C. PCP - General 02/05/[address] [place] [phone] documented as of this encounter
--- OUTSIDE RECORDS SUMMARY | 2022-02-23 07:16 | XMS_ITS | Encounter Summary ---
:2000 Author Organization [facility] Address [address] [place] [address] Care Team Providers Name Role Phone Unavailable Primary Care Provider Unavailable Encounter Details Date Type Department Care Team Description 02/18/2011 Hospital Encounter HX [facility] Elmo Kitchen, BEL, C.N.P., D. N.P. [address] [place], [place] [address] (Wo rk) Social History [...] How often do you attend cheondoism or caodaism 1 to 4 times per [...]
--- OUTSIDE RECORDS SUMMARY | 2022-02-23 07:16 | XMS_ITS | Encounter Summary ---
:2000 Author Organization [facility] Address [address] [place] [address] Care Team Providers Name Role Phone Unavailable Primary Care Provider Unavailable Encounter Details Date Type Department Care Team Description 01/30/2011 Hospital Encounter HX [facility] Elmo Kitchen, BEL, C.N.P., D. N.P. [address] [place], [place] [address] (Wo rk) Social History [...] 08/02/2020 relatives? How often do you attend latter-day or sikhism 1 to 4 times per year 08/02/2020 services? Do you belong to any clubs or organizations such No 08/02/2020 as latter-day groups, unions, fraternal or athletic groups, or [...] 01/30/2011 1:23 PM CD T Growth Chart: [facility] (Girls, 2-20 Years) documented in this encounter Progress Notes Lisa Kitchen APRN, C.N.P. - 01/30/2011 12:00 AM CDT [id number] CHIEF COMPLAINT / REASON FOR VISIT 12 [...] dad and patient as documented on the [facility] clinic visit sheet which will [...] CRANDALL CNP On: 02/06/2011 02:26 pm Source: [facility] MHSDOLBEYNONRADSYS Document Id: [id number] documented in this encounter Procedure Notes Conversion, Historical Provider Ser - 01/30/2011 1:23 PM CDT Vision Testing Vision Testing Entered On: 01/30/2011 13:25 CDT Performed On: 01/30/2011 13:23 CDT by CHARO TENORIO Vision Testing Corrective Lenses: Glasses Eye, Right w/o Correction: 20/80 Eye, Left w/o Correction: 20/50 CHARO TENORIO - 01/30/2011 13:23 CDT Source: [facility] POWERCHART Document Id: [id number] CDT!5 documented in this encounter Miscellaneous Notes Miscellaneous - Lisa Kitchen APRN, C.N.P. - 01/30/2011 3:09 PM CDT Ambulatory Patient Summary [address] [address] Visit Information Name: CITLALY HOLLAND [...] No Appointments found Your Goals/Additional instructions: Source: [employer] Document Id: [id number] Electronically signed by Conversion, [facility] Roofing Subcontractor [id number] at 11/01/2016 2:47 PM CDT Miscellaneous - Lisa Kitchen, BEL, C.N.P. - 01/30/2011 3:09 PM CD[place] [address] Visit Information Name: CITLALY HOLLAND Current Date: [...] to the patient and/or family, guardian/caregiver. Source: [employer] Document Id: [id number] Miscellaneous - Conversion, Historical Provider Ser - 01/30/2011 1:23 PM CDT Pediatric Motor Coach Supervisor Intake/History Document Has Been Updated Pediatric Motor Coach Supervisor Intake/History Entered On: 01/30/2011 13:24 CDT Performed [...] ; Reviewed Date: 01/30/2011 13:27 CDT Source: [facility] POWERCHART Document Id: [id number] CDT!3 documented in this encounter Plan of Treatment Not on filedocumented as of this encounter Visit Diagnoses Not on filedocumented in this encounter
--- OUTSIDE RECORDS SUMMARY | 2022-02-23 07:16 | XMS_ITS | Encounter Summary ---
:1998 Author Organization [facility] Address [address] [place] [address] Care Team Providers Name Role Phone Unavailable [...] 08/02/2020 relatives? How often do you attend judaism or amish 1 to 4 times per year 08/02/2020 services? Do you belong to any clubs or organizations such No 08/02/2020 as judaism groups, unions, fraternal or athletic groups, or [...] ??Exam: US Cranial Pediatrics Indications: *PORTABLE*HEAD-FOLLOW UP ?[id number] ORIGINAL REPORT - 05-Feb-1999 17:40:00 The brain [...] Cranial Pe diatrics Indications: *PORTABLE*HEAD-FOLLOW UP [id number] ORIGINAL REPORT - 05-Feb-1999 17:40:00 The brain [...] 1 4:49 Robert GONZALEZ DIAGNOSTIC IMAGING PROCE [facility] general Pathology Report (01/29/1999 1:49 PM CDT) Specimen Anatomical Collection Method Collection Time Receive d Time (Source) Location / / Volume Laterality 01/29/1999 1:49 PM 9 1:49 CDT PM CDT Narrative [facility] - [facility] - 01/29/1999 1:49 PM CDT [id number] Surgical Pathology Requested By: ? Ruben park M.D. ?([id number]) ?? TISSUE DESCRIPTION: ?? Distal ostomy (2.5 cm with ellipse o f skin) and proximal ostomy (5.2 cm in length) ?? [id number] A1, A2 ?? DIAGNOSIS: ?? Distal ostomy, excision: ??Benign sq uamous epithelium and colonic-type mucosa with mild chronic ?? inflammation. ?? Proximal ostomy, excision: ??Benign small bowel mucosa. ?? 29Jan1999 ?Erik TaverasS.:dam Procedure Note 08/20/2017 29Jan1999 Surgical Pathology Requested By: Ruben Shipley M.D. ([id number]) TISSUE DESCRIPTION: Distal ostomy (2.5 cm with ellipse of s kin) and proximal ostomy (5.2 cm in length) [id number] A1, A2 DIAGNOSIS: Distal ostomy, excision: Benign squamou s epithelium and colonic-type mucosa with mild chronic inflammation. Proximal ostomy, excision: Benign small bowel mucosa. 29Jan1999 Erik TaverasS.:suze toney Ruben Shipley M.D. LAB PATHOLOGY/CYTOLOGY ORDER TAYLOR Performing Organization Address City/State/ZIP Code Phon e Number [facility] - [address] Upper GI Double Contrast Without KUB [...] stomach. Electronically signed by: John Cassidy MD [phone] 28-Jan-1999 11:0 5 Hernan Maza M.D. IMLucía DIAGNOSTIC IMAGING PROCE [facility] Small Bowel (01/27/1999 2:36 PM CDT) Anatomical [...] Electronically signed by: ?? Yoli Hickman MD. ??[phone] 27-Jan-1999 15:14 Procedure Note Cecily Hickman M.D. [...] pneumotosis. Electronically signed by: Yoli Hickman MD. [phone] 27-Jan-1999 1 5:14 Robert Nick M.D. IMLucía [...] pneumotosis. Electronically signed by: Yoli Hickman MD. [phone] 27-Jan-1999 1 5:14 Robert Nick M.D. IMLucía [...] or co arctation. 2-D COMMENT: ??TAPE NUMBER: [id number]/09:45-34:40 ?Complete two-dimensional, color flow, and Doppler echocardiography [...] SYSTOLIC VALVE AREAS - ROUTIN E - [place] VALVE ? LVOT velocity (V1) ? 0.1 [...] Hg ? Narrative 01/23/1999 12:00 AM CDT [id number] ??ECHO ?FINAL REPORT ?? REPORT DATE: 23Jan1999 REFERRING MD: ??NICU ?RESPONSIBLE MD: ??Travis PBettie Mancera [phone] PROCEDURE TYPES: ?? 2-D, Doppler Video, and Color Flow. REFERRAL DIAGNOSIS: ?? Cardiomyopathy. ??Pediatric congenit al heart disease. HEMODYNAMICS: ?? Heart rate 151 BPM. ?? BP=44/31 FINAL Procedure Note Provider, Historical - 08/31/2017Formatt ing of this note might be different from the original. [id number] ECHO FINAL REPORT REPORT DATE: 23Jan1999 REFERRING MD: NICU RESPONSIBLE MD: Jermaine Farrell [phone] PROCEDURE TYPES: 2-D, Doppler Video, and Color [...] arteriosus or coarctation. 2-D COMMENT: TAPE NUMBER: [id number]/09:45-34:40 Complete two-dimensional, color flow, a nd Doppler [...] AORTIC SYSTOLIC VALVE AREAS - ROUTINE - [place] VALVE LVOT velocity (V1) 0.1 m/sec Peak Aortic velocity (V2) 0.4 * m/sec 0 .5-1.8 Peak Aortic time monique int(TVI2) 29.0 cm V1/V2 ratio 0.25 LVOT diameter 0.5 cm Valve area (by velocity) 0.05 cm2 Peak velocity obtained from apex TRICUSPID SYSTOLIC - ROUTINE - [place] V ALVE Peak velocity 2.2 m/sec Maximal [...] Electronically signed by: ?? John ??Khanh MICHAEL ??[id number] 07-Jan-1999 13:50 Procedure Note Kaye Cassidy M.D. [...] 100.120 Electronically signed by: John Cassidy MD [phone] 07-Jan-1999 13:5 0 Robert Nick M.D. IMG US PROCEDURES HX SUBSEQ ORDER FOR NB? (01/03/1999 12:31 PM CDT) Specimen Anatomical Collection Method Collection Time Receive d Time (Source) Location / / Volume Laterality 01/03/1999 12:31 01/12/1999 1:14 PM CDT AM CDT Narrative [facility] - [facility] - 01/03/1999 12:31 PM CDT 03 Jan 1999 ?[id number] ?Ro ?12:31 ?? Subsq Order for NB: ?Blood Component ?R BC, Irradiated Leukoreduced ?CPDA-1, Divided ?Transfused ? 04 Jan 1999 ?Unit Number Id ? [id number] Procedure Note 09/15/2017 03 Jan 1999 [id number] Ro 12:31 Subsq Order for NB: Blood Component RBC, Irradiated Leukore duced CPDA-1, Divided Transfused 04 Jan 1999 Unit Number Id [id number] Historical Provider LAB HISTORICAL ORDERS Performing Organization Address City/State/ZIP Code Phon e Number [facility] - [address] [place], [place] [address] [facility] DX Chest and Abdomen Portable [...] RLQ. Electronically signed by: John Cassidy MD [phone] 02-Jan-1999 07:3 6 Braulio Franco M.D. IMG DIAGNOSTIC IMAGING PROCE [facility] DX Infant Chest and Abdomen Portable [...] Electronically signed by: ?? Yoli Hickman MD. ??[phone] 01-Jan-1999 10:59 Procedure Note Cecily Hickman M.D. [...] Dave Fields Ph.D. [facility] Chest Portable 1 View (1998 [...] abdomen. Electronically signed by: ?? B.R. Bullernestina ??[phone] ([id number]) 1998 07:35 I have reviewed the films/images and agr ee with the above interpretation. Electronically signed by: ?? Yoli Hickman MD. ??[phone] 08:58 Procedure Note Cecily Hickman M.D. [...] the abdomen. Electronically signed by: Esequiel Velasco [phone] ([id number]) 1998 07 :35 I have reviewed the films/images and agr ee with the above interpretation. Electronically signed by: Yoli Hickman MD. [phone] 0 8:58 Braulio Franco M.D. IMG [...] overlying RA. OG. Electronically signed by: ?? Yloi Hickman MD. ??[id number] 1998 15:25 Procedure Note Ceicly Hickman M.D. - 09/06/2017Form atting of this [...] ?? Electronically signed by: ?? Esequiel Velasco ??[phone] ([id number]) 1998 00:24 I have reviewed the [...] of bowel. Electronically signed by: Esequiel Velasco [phone] ([id number]) 1998 00 :24 I have reviewed the films/images and agr ee with the above interpretation. Electronically signed by: Yoli Hickman MD. [phone] 1 5:39 Robert Nick M.D. IMLucía [facility]STIC [facility] Infant Chest and Abdomen Portable [...] catheter. Electronically signed by: ?? Esequiel Velasco ??[phone] ([id number]) 1998 22:14 I have reviewed the films/images [...] Ball catheter. Electronically signed by: Esequiel Velasco [phone] ([id number]) 1998 22 :14 I have reviewed the films/images and agr ee with the above interpretation. Electronically signed by: Yoli Hickman MD. [phone] 1 5:44 Robert Nick M.D. IMLucía DIAGNOSTIC IMAGING PROCE [facility] DX Infant Chest and Abdomen Portable 1 [...] air. Electronically signed by: ?? Esequiel Velasco ??[phone] ([id number]) 1998 07:25 I have reviewed the films/images [...] free air. Electronically signed by: Esequiel Velasco [phone] ([id number]) 1998 07 :25 I have reviewed the films/images and agr ee with the above interpretation. Electronically signed by: Yoli Hickman MD. [phone] 0 9:26 Braulio GONZALEZ DIAGNOSTIC IMAGING [facility] DX Chest Portable 1 View (1998 [...] 8:47 AM 9 1:16 CDT AM CDT [facility] 1998 8:47 AM CDT 1998 ?[id number] ?Ro ?08:47 ?? Subsq Order for NB: ?Blood Component ?R BC, Irradiated Leukoreduced ?CPDA-1, Divided ?Transfused ? 1998 ?Unit Number Id ? [id number] Procedure Note 09/15/2017 1998 [id number] Ro 08:47 Subsq Order for NB: Blood Component RBC, Irradiated Leukore duced CPDA-1, Divided Transfused 1998 Unit Number Id [id number] Historical Provider LAB HISTORICAL ORDERS Performing Organization Address City/State/ZIP Code Phon e Number [facility] - [address] [place], [place] [address] [facility] DX Chest and Abdomen Portable [...] notified. Electronically signed by: ?? Mannie Fu ??[phone] ([id number]) 22-Dec-18 99 21:07 I have reviewed the films/images and agr ee with the above interpretation. Electronically signed by: ?? Chris Vega ??[phone] 21:45 Procedure Note Paolo Vega M.D. [...] notifie d. Electronically signed by: Mannie Fu [phone] ([id number]) 1998 21:07 I have reviewed the films/images and agr ee with the above interpretation. Electronically signed by: Chris Vega [phone] 21:45 Reed GONZALEZ DIAGNOSTIC IMAGING PROCE DURES HX SUBSEQ ORDER FOR NB? (1998 6:34 PM CDT) Specimen Anatomical Collection Method Collection Time Receive d Time (Source) Location / / Volume Laterality 1998 6:34 PM 9 1:16 CDT AM CDT Narrative [facility] - [facility] - 1998 6:34 PM CDT 1998 ?[id number] ?Ro ?18:34 ?? Subsq Order for NB: ?Blood Component ?R BC, Irradiated Leukoreduced ?CPDA-1, Divided ?Transfused ? 1998 ?Unit Number Id ? [id number] ?Blood Component ?R BC, Irradiated Leukoreduced ?CPDA-1, Divided ?Transfused ? 1998 ?Unit Number Id ? [id number] Procedure Note 09/15/2017 1998 [id number] Ro 18:34 Subsq Order for NB: Blood Component RBC, Irradiated Leukore duced CPDA-1, Divided Transfused 1998 Unit Number Id [id number] Blood Component RBC, Irradiated Leukore duced CPDA-1, Divided Transfused 1998 Unit Number Id [id number] Historical Provider LAB HISTORICAL ORDERS Performing Organization Address City/State/ZIP Code Phon e Number [facility] - [address] [place], [place] [address] [facility] Hx general Pathology Report (1998 6:52 AM CDT) Specimen Anatomical Collection Method Collection Time Receive d Time (Source) Location / / Volume Laterality 1998 6:52 AM 9 6:52 CDT AM CDT Narrative [facility] - [facility] - 1998 6:52 AM CDT [id number] Surgical Pathology Requested By: ? Bryant Maza M.D. ? ([id number]) ?? TISSUE DESCRIPTION: ?? 4 cm small bowel ?? [id number] A1 ?? DIAGNOSIS: ?? Small bowel, partial resection: ??Se gment of small bowel with marked ischemic changes, ?? consistent with necrotizing enteroco litis. ?? [id number] ?Brian Taveras.S.:mgs Procedure Note 08/20/2017 [id number] Surgical Pathology Requested By: Hernan Maza M.D. ( [id number]) TISSUE DESCRIPTION: 4 cm small bowel [id number] A1 DIAGNOSIS: Small bowel, partial resection: Segment of small bowel with marked ischemic changes, consistent with necrotizing enterocolit is. [id number] Abdi TaverasB.S.:mg s Hernan Maza M.D. LAB PATHOLOGY/CYTOLOGY ORDER TAYLOR Performing Organization Address City/State/ZIP Code Phon e Number [facility] - [address] [place], [place] [address] [facility] DX Infant Chest and Abdomen [...] Robert Nick M.D. IMG DIAGNOSTIC IMAGING PROCE [facility] DX Chest and Abdomen Portable 1 [...] RA. Electronically signed by: ?? Esequiel Velasco ??[phone] ([id number]) 1998 06:50 I have reviewed the films/images and agr ee with the above interpretation. Electronically signed by: ?? Yoli Hickman MD. ??[phone] 12:15 Procedure Note Cecily Hickman M.D. [...] in RA. Electronically signed by: Esequiel Velasco [phone] ([id number]) 1998 06 :50 I have reviewed the films/images and agr ee with the above interpretation. Electronically signed by: Yoli Hickman MD. [phone] 1 2:15 Robert GONZALEZ DIAGNOSTIC IMAGING PROCE [facility] DX Infant Chest and Abdomen Portable [...] Robert Nick M.D. IMLucía DIAGNOSTIC IMAGING PROCE [facility] DX Abdomen Portable Anterior Posterior 1 [...] interspace. Electronically signed by: ?? [place] Arrieta ??[phone] ([id number]) 1998 1 0:03 I have reviewed [...] L4-L5 interspace. Electronically signed by: China Arrieta [phone] ([id number]) 1998 10: 03 I have reviewed the films/images and agr ee with the above interpretation. Electronically signed by: John Cassidy MD [phone] 10:5 3 Historical Provider IMG DIAGNOSTIC [...] Electronically signed by: ?? Yoli Hickman MD. ??[phone] 14:12 Procedure Note Cecily Hickman M.D. [...] recommended. Electronically signed by: Yoli Hickman MD. [phone] 1 4:12 Robert Nick M.D. IMG [...] abdomen. Electronically signed by: ?? China Arrieta ??[phone] ([id number]) 1998 0 7:17 I have reviewed the films/images and agr ee with the above interpretation. Electronically signed by: ?? Yoli Hickman MD. ??[phone] 09:22 Procedure Note Cecily Hickman M.D. [...] the abdomen. Electronically signed by: China Arrieta [phone] ([id number]) 1998 07: 17 I have reviewed the films/images and agr ee with the above interpretation. Electronically signed by: Yoli Hickman MD. [phone] 0 9:22 Robert GONZALEZ DIAGNOSTIC IMAGING PROCE [facility] DX Chest Portable 1 View (1998 [...] Electronically signed by: ?? John ??Khanh MICHAEL ??[phone] 07:03 Procedure Note Kaye Cassidy M.D. - 09/06/2017Form atting of this note might be different from the original. 1998 06:56:00 Exam: Portable-Ches t Indications: follow rds ORIGINAL REPORT - 1998 07:03:00 Since yesteray, the ETT has been removed . Enteric tube, UAC, and UVC, remain in place and are unchanged in position. Pulmonary infiltrates have improved. Electronically signed by: John Cassidy MD [phone] 07:0 3 Robert Nick M.D. IMG [...] pattern. Electronically signed by: ?? China Arrieta ??[phone] ([id number]) 1998 0 7:14 I have reviewed [...] gas pattern. Electronically signed by: China Arrieta [phone] ([id number]) 1998 07: 14 I have reviewed the films/images and agr ee with the above interpretation. Electronically signed by: Chris Vega [phone] 10:51 Robert Nick M.D. [facility] Head (1998 3:48 PM CDT) [...] D:100.120 Electronically signed by: Yoli Hickman MD. [phone] 1 7:38 Robert Nick M.D. IMG [...] pattern. Electronically signed by: ?? China Arrieta ??[phone] ([id number]) 1998 0 7:54 I have reviewed [...] gas pattern. Electronically signed by: China Arrieta [phone] ([id number]) 1998 07: 54 I have reviewed the films/images and agr ee with the above interpretation. Electronically signed by: John Cassidy MD [phone] 09:0 1 Robert Nick M.D. IMG DIAGNOSTIC IMAGING PROCE [facility] US Head (1998 4:08 PM CDT) Anatomical Region Laterality Modality Head N/A Ultrasound Specimen (Source) Anatomical Collection Method Collection Time Re ceived Time Location / / Volume Laterality 1998 4:08 PM CDT Narrative 1998 5:29 PM CDT 1998 16:08:00 ??Exam: US Cranial Pediatrics Indications: *PORTABLE*HEAD-R/O IVH ?1ST [id number] ORIGINAL REPORT - 1998 17:29:00 I:100.705 ??No [...] Electronically signed by: ?? Yoli Hickman MD. ??[phone] 17:29 Procedure Note Cecily Hickman M.D. - 09/06/2017Form atting of this note might be different from the original. 1998 16:08:00 Exam: US Cranial Pe diatrics Indications: *PORTABLE*HEAD-R/O IVH [facility] [id number] ORIGINAL REPORT - 1998 17:29:00 I:100.705 No definite evidence of germin al matrix hemorrhage. Ventricles are normal in size. There is increased echotexture in the periventricular white matter, more prominent on the right. While this may represent a normal halo, periventricular leukomalaci a cannot be excluded. No definite evidence of intraventricular hemorrhage. Corpus callosum is present. D:100.120 Electronically signed by: Yoli Hickman MD. [phone] 1 7:29 Robert Nick M.D. IMLucía [...] Electronically signed by: ?? Yoli Hickman MD. ??[phone] 08:03 Procedure Note Cecily Hickman M.D. [...] gas within bowel loops. Electronically signed by: Yloi Hickman MD. [phone] 0 8:03 Robert Nick M.D. IMG [...] by: Chris Vega [phone] 08:21 Clinton Lnua M.D. IMG DIAGNOSTIC IMAGING PROCE [facility] DX Infant Chest and Abdomen Portable [...] Electronically signed by: ?? [facility] [place] ??[phone] [id number]) 1998 23:46 I have reviewed the films/images and agr ee with the above interpretation. Electronically signed by: ?? John ??Khanh MICHAEL ??[phone] 06:13 Procedure Note Kaye Cassidy M.D. [...] mid bowel. Electronically signed by: Jermaine Gamino [phone] ([id number]) 1998 2 3:46 I have reviewed the films/images and agr ee with the above interpretation. Electronically signed by: John Cassidy MD [phone] 06:1 3 Clinton GONZALEZ DIAGNOSTIC IMAGING PROCE DURES documented in this encounter Visit Diagnoses Not on filedocumented in this encounter
--- OUTSIDE RECORDS SUMMARY | 2022-02-23 07:16 | XMS_ITS | Encounter Summary ---
:1998 Author Organization [facility] Address [address] [place] [address] Care Team Providers Name Role Phone Unavailable Primary Care Provider Unavailable Encounter Details Date Type Department Care Team Description 04/30/2015 Hospital Encounter HX [facility] FAMILYPRA Miranda Reece APRN, C.N.P., M.S.N. [address] [place] [address] (Wo rk) Social History Tobacco Use Types [...] 08/02/2020 relatives? How often do you attend tenriism or congregational 1 to 4 times per year 08/02/2020 services? Do you belong to any clubs or organizations such No 08/02/2020 as tenriism groups, unions, fraternal or athletic groups, or [...] (131 lb 2.8 oz) 04/30/2015 3:28 PM PANEL CUTTER Height 158 cm (5' 2.21) 04/30/2015 3:28 PM PANEL CUTTER Body Mass Index 23.83 04/30/2015 3:28 PM PANEL CUTTER Body Mass Index Percentile 79.89 % 04/30/2015 3:28 PM CS T Growth Chart: [facility] (Girls, 2-20 Years) documented in this encounter H&P Notes Chevy, Miranda Guadalupe, BEL, TIFFANIE - 04/30/2015 3:19 PM CST [id number] CHIEF COMPLAINT/REASON FOR VISIT Annual physical. HISTORY [...] Jansen -C./francesca Electronically Signed By: MIRANDA REECE [facility] On: 05/21/2015 02:28 PM Source: [facility] [email or web address] Document Id: [id number] L CUTTER documented in this encounter Miscellaneous Notes Miscellaneous - Triston Mccormick, L.P.N. - 04/30/2015 3:32 PM CST PHQ-9 - Teens PHQ-9 - Teens Entered On: 04/30/2015 15:33 PANEL CUTTER Performed On: 04/30/2015 15:32 PANEL CUTTER by TRISTON MCCORMICK LPN PHQ-9 - Teens [...] No TRISTON MCCORMICK LPN - 04/30/2015 15:32 PANEL CUTTER Source: [email or web address] Document Id: [id number] PANEL CUTTER!16 L CUTTER Miscellaneous - Triston Mccormick L.P.N. - 04/30/2015 3:28 PM CST Pediatric Analysis Reporting Developer Intake/History Pediatric Analysis Reporting Developer Intake/History Entered On: 04/30/2015 15:31 PANEL CUTTER Performed On: 04/30/2015 15:28 PANEL CUTTER by TRISTON MCCORMICK LPN Intake Chief Complaint [...] kg/m2 TRISTON MCCORMICK LPN - 04/30/2015 15:28 PANEL CUTTER General Info Accompanied By : Mother, Sibling Information Given By : Patient Languages : Spanish, Polish Is Patient Female and 13-50 no hysterectomy : Yes Status : Patient denies Are you ? : No TRISTON MCOCRMICK LPN - 04/30/2015 15:28 PANEL CUTTER Subjective Pain Symptoms : No TRISTON MCCORMICK LPN - 04/30/2015 15:28 PANEL CUTTER Dependent Habits Exposure to Tobacco Smoke : Care provider denies smoking in home Smoking Status : Never smoker Tobacco 2A : No Alcohol Use : No TRISTON MCCORMICK LPN - 04/30/2015 15:28 PANEL CUTTER Caffeine Use Grid Caffeine Use : Current Type : Chocolate, Soft drinks Frequency : Weekly Amount : 2 times per month Last Use : 04/30/15 TRISTON MCCORMICK LPN - 04/30/2015 15:28 PANEL CUTTER Recreational Drug Use Grid Drug Use : None TRISTON MCCORMICK LPN - 04/30/2015 15:28 PANEL CUTTER Source: [facility] WhoKnowsCHART Document Id: [id number] PANEL CUTTER!42 L CUTTER documented in this encounter Plan of Treatment Not on filedocumented as of this encounter Procedures Procedure Name Priority Date/Time Associated Comments Diagnosis CHLAMYDIA/GONORRHOEAE Routine 04/30/2015 3:30 PM Results for this AMPLIFIED RNA PANEL CUTTER procedure are in the results section. CHLAMYDIA TRACHOMATIS Routine 04/30/2015 3:30 PM Results for this AMPLIFIED RNA PANEL CUTTER procedure are in the results section. documented in this encounter Results Chlamydia / Gonorrhoeae Amplified RNA (04/30/2015 3:30 PM PANEL CUTTER) Component Value Ref Test Analysis Performed At [facility] Range Method Time Signature HX GC by Nucleic POWERCHART Acid Amplification HXFinal Negative for POWERCHART Neisseria gonorrhea by RNA amplification . HXFinal Reference: POWERCHART Negative HXFinal If you POWERCHART submitted a female urine sample, please note it is a Laboratory Developed Test. Specimen (Source) Anatomical Collection Method Collection Time Re ceived Time Location / / Volume Laterality Urine 04/30/2015 3:30 PM PANEL CUTTER Miranda Reece APRN, C.N.P., M.S.N. LAB MICROB IOLOGY - GENERAL ORDERABLES Performing Organization Address City/State/ZIP Code Phon e Number POWERCHART Chlamydia Trachomatis Amplified RNA (04/30/2015 3:30 PM PANEL CUTTER) Component Value Ref Test Analysis Performed At [facility] Range Method Time Signature HXChlamydia by POWERCHART Nucleic Acid Amplification HXFinal Negative for POWERCHART Chlamydia trachomatis by RNA amplification. HXFinal Reference: POWERCHART Negative HXFinal If you POWERCHART submitted a female urine sample, please note it is a Laboratory Developed Test. Specimen (Source) Anatomical Collection Method Collection Time Re ceived Time Location / / Volume Laterality Urine 04/30/2015 3:30 PM PANEL CUTTER Miranda Reece APRN, C.N.P., M.S.N. LAB MICROB IOLOGY - GENERAL ORDERABLES Performing Organization Address City/State/ZIP Code Phon e Number POWERCHART documented in this encounter Visit Diagnoses Not on filedocumented in this encounter
--- OUTSIDE RECORDS SUMMARY | 2022-02-23 07:16 | XMS_ITS | Encounter Summary ---
:1998 Author Organization [facility] Address [address] [place] [address] Care Team Providers Name Role Phone Unavailable Primary Care Provider Unavailable Encounter Details Date Type Department Care Team Description 10/09/2016 Hospital Encounter HX NO MAPPING Casper Payan P.A.-C. [address] [place] [address] (Wo rk) Social History Tobacco Use [...] How often do you attend hoahaoism or congregational 1 to 4 times per [...] Coding Summary-Paper Based CODING DATE: 10/20/2016 FINAL [facility] STATUS: * Discharged to Home or Self [...] HOLLY Date Saved: 10/20/2016 01:24 pm [facility] Document Id: [id number] documented in this encounter Plan of Treatment Not on filedocumented as of this encounter Visit Diagnoses Not on filedocumented in this encounter
--- OUTSIDE RECORDS SUMMARY | 2022-02-23 07:16 | XMS_ITS | Encounter Summary ---
:2000 Author Organization [facility] Address [address] [place] [address] Care Team Providers Name Role Phone Chevy, Miranda Guadalupe APRN C.N.PBettie, M.S.N. Primary Care Pr ovider Reason for Referral Outpatient (Routine) - Closed Specialty Diagnoses / Procedures Referred By Contact Refer red To Contact Diagnoses Bicuspid Aortic Valve (HCC) Fatigue par review Phyllis Ramírez M.D. [facility] [place] [facility] Procedures Echo Transthoracic (TTE) [place] ECHO TTE 2D W DPLR COMPLETE CVD ECHO [address] [place] [address] Referral ID Status Reason Start Date Expiration Date Visits Requ ested Visits Authorized [id number] Closed 09/03/2017 03/02/2018 1 1 Reason for Visit Outpatient (Routine) - Closed Specialty Diagnoses / Procedures Referred By Contact Refer red To Contact Diagnoses Bicuspid Aortic Valve (HCC) Fatigue par review Phyllis Ramírez M.D. [facility] [place] [facility] Procedures Echo Transthoracic (TTE) [place] ECHO TTE 2D W DPLR COMPLETE CVD ECHO [address] [place] [address] Referral ID Status Reason Start Date Expiration Date Visits Requ ested Visits Authorized [id number] Closed 09/03/2017 03/02/2018 1 1 Encounter Details Date Type Department Care Team Description 11/02/2017 Hospital Encounter Department of Phyllis Ramírez Aortic Valve (HCC); Cardiovascular Diseases Silvio Winter Fatigue in Ashley Frausto [address] [place], [place] SWEETIE FRAUSTO [phone] Social History Tobacco Use Types Packs/Day Years [...] How often do you attend bahai or sabianism 1 to 4 times per [...] ECHO DOPPLER COLOR (11/02/2017 8:41 AM CDT) [facility] Method Time Signature Ejection Fraction 59 [...] documented as of this encounter Care Teams Book Jacket Cover Machine Operator Relationship Specialty Start Date End Date Reece, Miranda Guadalupe APRN, C.N.P., PCP - General 02/04/18 M.S.N. [address] [place] [phone] documented as of this encounter
--- OUTSIDE RECORDS SUMMARY | 2022-02-23 07:16 | XMS_ITS | Encounter Summary ---
:2000 Author Organization [facility] Address [address] [place] [address] Care Team Providers Name Role Phone Unavailable Primary Care Provider Unavailable Encounter Details Date Type Department Care Team Description 01/26/2013 Hospital Encounter HX [facility] Elmo Kitchen, BEL, C.N.P., D. N.P. [address] [place], [place] [address] (Wo rk) Social History [...] How often do you attend protestant or protestant 1 to 4 times per [...] % 01/26/2013 10:42 AM CDT Growth Chart: [facility] (Girls, 2-20 Years) documented in this encounter H&P Notes Lisa Kitchen APRN, C.N.P. - 01/26/2013 10:25 AM CDT [id number] CHIEF COMPLAINT/REASON FOR VISIT Well-child exam and sports physical. HISTORY OF PRESENT ILLNESS The patient is a 12-year-old female who presents for her 12-year-old well-child exam. Patient was last seen by me for her 10-year-old well-child exam. Patient lives at home with her mom, dad, one brother, one sister and one cousin. She does speak Uzbek in their home. Patient does wear glasses [...] EMR. SYSTEMS REVIEW Please see [facility] 11 to 14-year-old clinic visit sheet scanned into EMR for complete details. PAST MEDICAL/SURGICAL HISTORY Unchanged see EMR. SOCIAL HISTORY Patient lives at home with her mom, dad, brother, one sister and cousin. Denies tobacco, alcohol anddrug use. Patient is not sexually active. FAMILY HISTORY Unchanged see EMR. VITAL SIGNS See EMR. PHYSICAL EXAMINATION Please see scanned-in [facility] 11 to 14-year-old clinic visit sheet and [id number] sports qualifying physical examination clearance form as [...] CRANDALL CNP On: 02/13/2013 08:43 AM Source: [facility]OLBEYNON[facility]SYS Document Id: [id number] documented in this encounter Procedure Notes Conversion, [...] CDT KIRSTEN HUYNH 01/26/2013 11:23 CDT Source: [facility] Document Id: [id number] CDT!5 Conversion, Historical Provider Ser - 01/26/2013 [...] KIRSTEN HUYNH - 01/26/2013 11:39 CDT Source: [facility] Document Id: [id number] CDT!5 documented in this encounter Miscellaneous Notes Miscellaneous - Lisa Kitchen APRN, CBettieN.PBettie - 01/26/2013 5:17 PM CDT Ambulatory Patient Summary [address] [address] Visit Information Name: CITLALY HOLLAND [facility] Number: [id number] Current Date: 01/26/2013 17:17:31 [...] Your Goals/Additional instructions: [facility] Document Id: [id number] Miscellaneous - Lisa Kitchen APRN, C.N.P. - 01/26/2013 5:17 PM CDT Ambulatory Depart Summary [address] [address] Visit Information Name: CITLALY HOLLAND [facility] Number: [id number] Visit Date: 01/26/2013 17:17:30 [...] your provider for clarification. Additional Information: Source: [facility] Document Id: [id number] Miscellaneous - Conversion, Historical Provider Ser - 01/26/2013 10:42 AM CDT Pediatric Convention Services Manager Intake/History Pediatric Convention Services Manager Intake/History Entered On: 01/26/2013 10:43 CDT Performed [...] Information Given By : Patient Languages : Croatian KIRSTEN HUYNH - 01/26/2013 10:42 CDT Subjective [...] None KIRSTEN HUYNH 01/26/2013 10:42 CDT Source: [facility] POWERCHART Document Id: [id number] CDT!40 documented in this encounter Plan of Treatment Not on filedocumented as of this encounter Visit Diagnoses Not on filedocumented in this encounter
--- OUTSIDE RECORDS SUMMARY | 2022-02-23 07:16 | XMS_ITS | Encounter Summary ---
:2000 Author Organization [facility] Address [address] [place] [address] Care Team Providers Name Role Phone Unavailable Primary Care Provider Unavailable Encounter Details Date Type Department Care Team Description 04/30/2015 Hospital Encounter HX NO MAPPING Miranda Reece APRN, C.N.P., M. S.N. [address] [place], [place] [phone] (Wo rk) Social History [...] How often do you attend pentecostal or synagogue 1 to 4 times per year 08/02/2020 [...] Historical Provider Ser - 04/30/2015 11:59 PM CHAR HOUSE SUPERVISOR Coding Summary-Paper Based CODING DATE: 05/13/2015 FINAL [facility] STATUS: * Discharged to Home or Self [...] HOLLY Date Saved: 05/13/2015 10:25 am Source: [facility] Document Id: [id number] documented in this encounter Plan of Treatment Not on filedocumented as of this encounter Visit Diagnoses Not on filedocumented in this encounter
--- OUTSIDE RECORDS SUMMARY | 2022-02-23 07:16 | XMS_ITS | Encounter Summary ---
:2000 Author Organization [facility] Address [address] [place] [address] Care Team Providers Name Role Phone Unavailable Primary Care Provider Unavailable Encounter Details Date Type Department Care Team Description 10/09/2016 Hospital Encounter HX [facility] FAMILYPRA Amrita Payan P.A.-C. [address] [place] [address] (Wo rk) Social History Tobacco Use [...] How often do you attend zoroastrian or moravian 1 to 4 times per [...] Payan P.A.-C. - 10/09/2016 3:04 PM CDT [id number] CHIEF COMPLAINT/REASON FOR VISIT Sore throat. HISTORY [...] PAYAN PA-C On: 10/12/2016 09:00 AM Source: [facility] MHSDOLBEYNONRADSYS Document Id: [id number] documented in this encounter Miscellaneous Notes Miscellaneous - Mikael Payan P.A.-C. - 10/09/2016 4:34 PM CDT Ambulatory Discharge Medication List [address] [id number] Visit Information Name: CITLALY HOLLAND [facility] Number: [id number] Current Date: 10/09/2016 16:34:51 [...] PA-C Signed On:09-OCT-2016 16:34:49 Additional Information: Source: [facility] POWERCHART Document Id: [id number] Miscellaneous - Mikael Payan P.A.-C. - 10/09/2016 4:34 PM CDT Ambulatory Patient Summary [address] [id number] Visit Information Name: CITLALY HOLLAND [facility] Number: [id number] Current Date: 10/09/2016 16:34:51 [...] online form. Youll be asked for your [facility] number which you can find at the top of this document. Your Goals/Additional instructions: Source: [facility] POWERCHART Document Id: [id number] Miscellaneous - Roxana Hernandez L.PBettieNBettie - 10/09/2016 3:18 PM CDT Pediatric Director Of Casework Department Intake/History Pediatric Director Of Casework Department Intake/History Entered On: 10/09/2016 15:20 CDT Performed [...] Information Given By : Patient Languages : Ukrainian Is Patient Female and 13-50 no hysterectomy [...] HERNANDEZ LPN - 10/09/2016 15:18 CDT [facility]OWER[facility] Document Id: [id number] CDT!45 documented in this encounter Plan of [...] Strep A Screen (10/09/2016 3:30 PM CDT) [facility] [employer] Method Time Signature HXRapid Strep POWERCHART Confirmation [...] Strep A Screen (10/09/2016 3:30 PM CDT) [facility] [employer] Method Time Signature HXStrep A POWERCHART Screen [...]
--- OUTSIDE RECORDS SUMMARY | 2022-02-23 07:16 | XMS_ITS | Encounter Summary ---
:2000 Author Organization [facility] Address [address] [place] [address] Care Team Providers Name Role Phone Chaparro Payan P.A.-C. Primary Care Provider [phone] Reason for Visit Reason Onset Date Comments Outpatient COVID-19 Testing 02/28/2020 Encounter Details Date Type Department Care Team Description 02/28/2020 External Out[place] [facility] ([place] [address] [facility] [address]) DR Génesis [facility], [place] [phone] Social History Tobacco Use Types Packs/Day Years [...] 08/02/2020 relatives? How often do you attend congregation or jainism 1 to 4 times per year 08/02/2020 services? Do you belong to any clubs or organizations such No 08/02/2020 as congregation groups, unions, fraternal or athletic groups, or [...] RNA, V Symptomatic (02/28/2020 12:06 PM CDT) [facility] Method Time Signature SARS-CoV-2 Swab, 02/29/2020 MKTO [...] is performed using the Aptima SARS-CoV-2 assay ([employer] which has received Emergency Use Authori zation (EUA) by the U.S. Food and Drug Administration. Fact sheets for this Emergency Use Autho rization (EUA) assay can be found at the following links: For Healthcare Providers: https://www.fd a.gov/media/202049/download For Patients: https://www.fda.gov/media/ 573271/download Specimen Anatomical Collection Method Collection Time Receive d Time (Source) Location / / Volume Laterality Varies 02/28/2020 12:06 02/28/2020 7:35 (Nasopharynx) PM CDT PM CDT Kee Kemp P.A.-C. LAB MICROBIOLOGY - GENERAL O JIMMY Performing Organization Address City/State/ZIP Code Phon e Number [facility] [place] [address] [place] [address] System in [place] [address] [place] [address] documented in this encounter Visit Diagnoses Diagnosis Infection Upper Respiratory - Primary documented in this encounter Additional Health Concerns Infection Onset Date Last Indicated Resolved Time COVID19 Pending 02/28/2020 02/28/2020 02/29/2020 4:25 AM CDT Assessment Noted Time PHQ-9 Depression Total Score: 8 10/13/2017 12:58 PM CD T documented as of this encounter Care Teams Title I Teacher Relationship Specialty Start Date End Date Chaparro Payan P.A.-C. PCP - General 02/05/18 [address] [place] [address] documented as of this encounter
--- OUTSIDE RECORDS SUMMARY | 2022-02-23 07:16 | XMS_ITS | Encounter Summary ---
:2000 Author Organization [facility] Address [address] [place] [address] Care Team Providers Name Role Phone Chevy, Miranda Guadalupe APRN C.N.P., M.S.N. Primary Care Pr ovider Reason for Visit Reason Comments New Patient Outpatient (Routine) - Closed Specialty Diagnoses / Referred By Contact Referred To Contact Procedures Cardiovascular Diseases / Diagnoses Bicuspid Aortic Valve (HCC) Phyllis Ramírez, [facility] Region Cardiovascular Disease M.DBettie [address] [place] [address] Referral ID Status Reason Start Date Expiration Date Visits Requ ested Visits Authorized [id number] Closed 11/03/2017 11/03/2018 1 1 Encounter Details Date Type Department Care Team Description 11/17/2017 Comprehensive Visit Department of Rene Minor Aortic Cardiovascular TSilvio, M.P.H. Valve (HCC) Diseases in [address] [place] [address] [address] [facility] [address] [place], [place] [phone] (Work) [phone] Social History Tobacco Use Types Packs/Day Years [...] How often do you attend sikh or catholic 1 to 4 times per [...] documented as of this encounter Care Teams Electronic Video Games Servicer Relationship Specialty Start Date End Date Miranda Reece APRN, C.N.P., PCP - General 02/04/18 M.S.N. [address] [place] [address] documented as of this encounter
--- OUTSIDE RECORDS SUMMARY | 2022-02-23 07:16 | XMS_ITS | Encounter Summary ---
:2000 Author Organization [facility] Address [address] [place] [address] Care Team Providers Name Role Phone Chaparro Payan P.A.-C. Primary Care Provider [phone] Reason for Referral Outpatient (Routine) - Closed Specialty Diagnoses / Procedures Referred By Contact Refer red To Contact Diagnoses Bicuspid Aortic Valve (HCC) Fatigue Phyllis Ramírez M.D. [facility] [place] [facility] Procedures ECG 12 Lead MT EKG 12 LEAD TRACE ONLY MT EKG I&R ONLY 200 [facility] [place] [address] Referral ID Status Reason Start Date Expiration Date Visits Requ ested Visits Authorized [id number] Closed 09/03/2017 03/02/2018 1 1 Outpatient (Routine) - Closed Specialty Diagnoses / Procedures Referred By Contact Refer red To Contact Diagnoses Bicuspid Aortic Valve (HCC) Fatigue par review Phyllis Ramírez M.D. [facility] [place] [facility] Procedures Echo Transthoracic (TTE) MT ECHO TTE 2D W DPLR COMPLETE CVD ECHO [address] [place] [address] Referral ID Status Reason Start Date Expiration Date Visits Requ ested Visits Authorized [id number] Closed 09/03/2017 03/02/2018 1 1 Reason for Visit Reason Comments Annual Exam Encounter Details Date Type Department Care Team Description 09/03/2017 Comprehensive Visit Department of Hurtt, Phyllis Well A dult Examination Abnormal (Primary Dx); Family MedicineMaggy M.D. Overweight Body Mass Index 25-29.9 Adult ; [facility], 200 [facility] Bicuspid Aortic Valve (HCC); in [place], [place] Constipation Slow Transit; [place] [address] Dysmenorrhea; 300 [facility] AV [phone] Management Contraceptive; [facility], [place] (Work) Fatigue; [phone] Screening Examination For [...] How often do you attend hinduism or tenriism 1 to 4 times per year 08/02/2020 [...] % 09/03/2017 10:25 AM CDT Growth Chart: [facility] (Girls, 2-20 Years) documented in this [...] ECHO DOPPLER COLOR (11/02/2017 8:41 AM CDT) [facility] Method Time Signature Ejection Fraction 59 [...] Method Time Signature Source URINE, FIRST 09/06/2017 [facility] VOID 12:11 PM CDT [facility] LAB Chlamydia Negative Negative 09/06/2017 [facility] trachomatis 12:11 PM CDT [facility] LAB Comment: ----ADDITIONAL INFORMATION---- This report [...] - GENERAL O RDERABLES Performing Organization Address City/[facility]/ZIP Code Phon e Number [facility] [address] [place] [address] LAB ECG 12 Lead (09/03/2017 11:16 AM CDT) P athologist Signature Ventricular Rate 77 BPM MUSE ECG/Min MT Interval 136 ms MUSE QRSD Interval 80 ms MUSE QT Interval 330 ms MUSE QTC Interval 373 ms MUSE P Ubly 31 degrees MUSE R Ubly 7 degrees MUSE T Wave Ubly 31 degrees MUSE Specimen Anatomical Collection Method Collection Time Receive d Time (Source) Location / / Volume Laterality 09/03/2017 11:16 09/03/2017 AM CDT 11:42 AM CDT Impressions MUSE - 09/03/2017 11:42 AM CDT Normal sinus rhythm Nonspecific ST abnormality No previous ECGs available Narrative This result has an attachment that is no t available. Phyllis Ramírez M.D. ECG ORDERABLES Performing Organization Address City/[facility]/ZIP Code Phon e Number MUSE MUSE NA S-TSH (Thyroid-Stimulating Hormone - Sensitive) (09/03/2017 11:08 AM CDT) P athologist Signature TSH, Sensitive 1.4 0.5 - 4.3 09/03/2017 [facility] mIU/L 1:46 PM CDT [facility] Comment: Biotin has been identified by the jose matthews as a potential interfering substance. ??Higher concentr ations of biotin may be found in multivitamins, hair/nail supple ments, and workout supplements. ??If the result does not [facility] clinical observations, repeat testing after patient refrains fr om the use of supplements for at least 12 hours. Specimen Anatomical Collection Method Collection Time Receive d Time (Source) Location / / Volume Laterality Blood (Blood, 09/03/2017 11:08 09/03/2017 1:09 Venous) AM CDT PM CDT Phyllis Ramírez M.D. LAB BLOOD ADD-ON Performing Organization Address City/State/ZIP Code Phon e Number [facility] [place] [address] [place] [address] LAB (ABNORMAL) Lipid Panel (09/03/2017 11:08 AM CDT) athologist Signature Cholesterol, 205 (H) mg/dL 09/03/2017 [facility] Total 1:46 PM CDT [facility] [place] Comment: ----REFERENCE VALUE---- Desirable: < 200 Borderline high: 200 - 239 High: > or = 240 Triglycerides 206 (H) mg/dL 09/03/2017 1:46 PM CDT [facility] [place] [facility] Comment: ----REFERENCE VALUE---- Normal: <150 Borderline high: 150-199 High: 200-499 Very high: > or =500 Cholesterol, HDL, S 50 >=50 mg/dL 09/03/2017 1:46 PM CDT [facility] [place] [facility] Calculated LDL 114 mg/dL 09/03/2017 1:46 PM CDT [facility] [place] [facility] Comment: ----REFERENCE VALUE---- Desirable: <100 Above Desirable: 100-129 Borderline high: 130-159 High: 160-189 Very high: > or =190 Cholesterol, Non-HDL, 155 mg/dL 09/03/2017 1:46 PM CDT [facility] [place] B Comment: ----REFERENCE VALUE---- Desirable: <130 Above Desirable: 130-159 Borderline high: 160-189 High: 190-219 Very high: > or =220 Specimen Anatomical Collection Method Collection Time Receive d Time (Source) Location / / Volume Laterality Blood (Blood, 09/03/2017 11:08 09/03/2017 1:09 Venous) AM CDT PM CDT Phyllis Ramírez M.D. LAB BLOOD ADD-ON Performing Organization Address City/[facility]/ZIP Code Phon e Number [facility] [place] [address] [place] [address] LAB AST (Aspartate Aminotransferase) (09/03/2017 11:08 AM CDT) Patholo gist Method Time Signature Aspartate 16 8 - 43 09/03/2017 [facility] Aminotransferase U/L 1:46 PM CDT [facility] [place] LAB Specimen Anatomical Collection Method Collection Time Receive d Time (Source) Location / / Volume Laterality Blood (Blood, 09/03/2017 11:08 09/03/2017 1:09 Venous) AM CDT PM CDT Phyllis Ramírez M.D. LAB BLOOD ADD-ON Performing Organization Address City/[facility]/ZIP Code Phon e Number [facility] [place] [address] [place] [address] LAB (ABNORMAL) BMP (Basic Metabolic Panel) (09/03/2017 11:08 AM CDT) Analysis Performed At Path logist Time Signature Potassium, S 4.1 3.6 - 5.2 09/03/2017 [facility] mmol/L 1:46 PM CDT [facility] [place] [facility] Sodium, S 142 135 - 145 09/03/2017 [facility] mmol/L 1:46 PM CDT [facility] [place] [facility] Chloride, S 101 98 - 107 09/03/2017 [facility] mmol/L 1:46 PM CDT [facility] [place] [facility] Bicarbonate, S 30 (H) 22 - 29 09/03/2017 [facility] mmol/L 1:46 PM CDT [facility] [place] [facility] Anion Gap 11 7 - 15 09/03/2017 [facility] 1:46 PM CDT [facility] [place] [facility] BUN (Blood Urea 8 6 - 21 09/03/2017 [facility] Nitrogen), S mg/dL 1:46 PM CDT [facility] [place] [facility] Creatinine 0.56 (L) 0.59 - 09/03/2017 [facility] 1.04 mg/dL 1:46 PM T [facility] [place] [facility] eGFR-Non >90 >=60 09/03/2017 [facility] Black/ mL/min/BSA 1:46 PM CDT [facility] [place] [facility] Comment: ----ADDITIONAL INFORMATION---- Estimated GFR calculated using the 2009 CKD_EPI creatinine equation. eGFR-Black/ >90 >=60 mL/min/BSA 2017 1:46 PM [facility] [place] [facility] Comment: ----ADDITIONAL INFORMATION---- Estimated GFR calculated using the 2009 CKD_EPI creatinine equation. Calcium, Total, S 9.6 9.1 - 10.3 mg/dL 09/03/2017 1 :46 PM CDT [facility] [place] [facility] Glucose, S 80 70 - 140 mg/dL 09/03/2017 1:46 PM CDT [facility] [place] [facility] Specimen Anatomical Collection Method Collection Time Receive d Time (Source) Location / / Volume Laterality Blood (Blood, 09/03/2017 11:08 09/03/2017 1:09 Venous) AM CDT PM CDT Phyllis Ramírez M.D. LAB BLOOD ADD-ON Performing Organization Address City/State/ZIP Code Phon e Number [facility] [place] [address] [address] LAB CBC with Differential (09/03/2017 11:08 AM CDT) P athologist Signature Hemoglobin 13.6 11.6 - 09/03/2017 [facility] 15.0 g/dL 11:36 AM [facility] Hematocrit 40.7 35.5 - 09/03/2017 [facility] 44.9 % 11:36 AM T [facility] Erythrocytes 4.60 3.92 - 09/03/2017 [facility] 5.13 11:36 AM CDT [facility] x10(12)/[facility] MCV 88.5 78.2 - 09/03/2017 [facility] 97.9 fL 11:36 AM T [facility] RBC Distrib Width 13.2 12.2 - 09/03/2017 [facility] 16.1 % 11:36 AM CDT [facility] [place] [facility] Platelet Count 307 157 - 371 09/03/2017 [facility] x10(9)/L 11:36 AM CDT [facility] Leukocytes 8.7 3.4 - 9.6 09/03/2017 [facility] x10(9)/L 11:36 AM CDT [facility] [place] [facility] Neutrophils 5.74 1.56 - 09/03/2017 [facility] 6.45 11:36 AM CDT HEALTH x10(9)/L [facility]- [place] [facility] Lymphocytes 2.36 0.95 - 09/03/2017 [facility] 3.07 11:36 AM CDT [facility] x10(9)/L SYSTEM- [place] [facility] Monocytes 0.48 0.26 - 09/03/2017 [facility] 0.81 11:36 AM CDT HEALTH x10(9)/L SYSTEM- [place] [facility] Eosinophils 0.08 0.03 - 09/03/2017 [facility] 0.48 11:36 AM CDT [facility]ALTH x10(9)/L SYSTEM- [place] [facility] Basophils 0.01 0.01 - 09/03/2017 [facility] 0.08 11:36 AM CDT [facility] x10(9)/L SYSTEM- [place] [facility] Specimen Anatomical Collection Method Collection Time Receive d Time (Source) Location / / Volume Laterality Blood (Blood, 09/03/2017 11:08 09/03/2017 Venous) AM CDT 11:08 AM CDT Phyllis Ramírez M.D. LAB BLOOD ADD-ON Performing Organization Address City/State/ZIP Code Phon e Number [facility] [address] [place] [address] [place] [facility]- [address] [place], [place] [address] [place] [address] [place] [facility] documented in this encounter Visit Diagnoses Diagnosis Well Adult Examination Abnormal - Primar y Overweight Body Mass Index 25-29.9 Adult Bicuspid Aortic Valve (HCC) Constipation Slow Transit Dysmenorrhea Management Contraceptive Fatigue Screening Examination For Chlamydial Dis ease Screening Lipid Bicuspid Aortic Valve (HCC) Fatigue documented in this encounter Care Teams African History Professor Relationship Specialty Start Date End Date Chaparro Payan P.A.-C. PCP - General 02/05/[address] [place] [phone] documented as of this encounter
--- OUTSIDE RECORDS SUMMARY | 2022-02-23 07:16 | XMS_ITS | Encounter Summary ---
:[address] [facility] Address [address] [place] [address] Care Team Providers Name Role Phone Chevy, Miranda Guadalupe APRN C.N.P., M.S.N. Primary Care Pr ovider Encounter Details Date Type Department Care Team Description 10/13/2017 Hospital Encounter Department of Radiology Amrita Payan, [facility] Back in [facility] PBettieAEnoch [address] [facility] [address] [place] [address] [place], [place] [phone] (Wo rk) Social History Tobacco Use [...] How often do you attend yarsanism or scientologist 1 to 4 times per [...] as of this encounter Care Teams Assessment Director Relationship Specialty Start Date End Date Reece, Miranda Guadalupe APRN, C.N.P., PCP - General 02/04/18 M.S.N. [address] [place] [address] documented as of this encounter
--- OUTSIDE RECORDS SUMMARY | 2022-02-23 07:16 | XMS_ITS | Encounter Summary ---
:2000 Author Organization [facility] Address [address] [place] [address] Care Team Providers Name Role Phone Chaparro Payan P.A.-C. Primary Care Provider [phone] Reason for Visit Reason Onset Date Comments Outpatient COVID-19 Testing 03/27/2020 Encounter Details Date Type Department Care Team Description 03/27/2020 External Outreach Department of Wood Guzman Infect ion Upper Internal Medicine in J, D.O. Respiratory (Primary [place], [place] [address] Dx) [address] [place] [phone] Social History Tobacco Use Types Packs/Day Years [...] How often do you attend christianity or mormon 1 to 4 times per year 08/02/2020 [...] RNA, V Symptomatic (03/28/2020 3:08 PM CDT) [facility] Method Time Signature SARS-CoV-2 Swab, 03/29/2020 [...] is performed using the Aptima SARS-CoV-2 assay ([employer] which has received Emergency Use Authori zation (EUA) by the U.S. Food and Drug Administration. Fact sheets for this Emergency Use Autho rization (EUA) assay can be found at the following links: For Healthcare Providers: https://www.fd a.gov/media/117313/download For Patients: https://www.fda.gov/media/ 852918/download Specimen Anatomical Collection Method Collection Time Receive d Time (Source) Location / / Volume Laterality Varies 03/28/2020 3:08 PM 0 1:47 (Nasopharynx) CDT AM CDT Wood Guzman D.O. LAB MICROBIOLOGY - GENERAL O RDERABROOKE Performing Organization Address City/State/ZIP Code Phon e Number [facility] [place] [address] [place] [address] System in [place] [address] [place] [address] documented in this encounter Visit Diagnoses Diagnosis Infection Upper Respiratory - Primary documented in this encounter Additional Health Concerns Infection Onset Date Last Indicated Resolved Time COVID19 Pending 03/27/2020 03/28/2020 03/29/2020 10:23 PM CDT Assessment Noted Time PHQ-9 Depression Total Score: 8 10/13/2017 12:58 PM CD T documented as of this encounter Care Teams Die Setter Relationship Specialty Start Date End Date Chaparro Payan P.A.-C. PCP - General 02/05/18 [address] [place] [address] documented as of this encounter
--- OUTSIDE RECORDS SUMMARY | 2022-02-23 07:16 | XMS_ITS | Encounter Summary ---
:2000 Author Organization [facility] Address [address] [place] [address] Care Team Providers Name Role Phone Chaparro Payan P.A.-C. Primary Care Provider [phone] Encounter Details Date Type Department Care [...] How often do you attend pentecostalism or anglican 1 to 4 times per [...] no amblyopia CDM Reports - EYEGEN Id: [id number] Status: Fnl documented in this encounter Plan of Treatment Not on filedocumented as of this encounter Visit Diagnoses Not on filedocumented in this encounter Additional Health Concerns Infection Onset Date Last Indicated Resolved Time COVID19 Pending 02/28/2020 02/28/2020 02/29/2020 4:25 AM CDT COVID19 Pending 03/27/2020 03/28/2020 03/29/2020 10:23 PM CDT COVID19 Pending 06/23/2020 06/23/2020 06/24/2020 2:18 PM RETAIL ASSISTANT STORE MANAGER COVID19 Pending 07/12/2020 07/12/2020 07/13/2020 1:56 AM RETAIL ASSISTANT STORE MANAGER documented as of this encounter Care Teams Credit Risk Review Officer Relationship Specialty Start Date End Date Chaparro Payan P.A.-C. PCP - General 02/05/[address] [place] [phone] documented as of this encounter
--- OUTSIDE RECORDS SUMMARY | 2022-02-23 07:16 | XMS_ITS | Encounter Summary ---
:2000 Author Organization [facility] Address [address] [place] [address] Care Team Providers Name Role Phone Reece, Miarnda Guadalupe APRN C.N.PBettie, M.S.N. Primary Care Pr ovider Reason for Referral Outpatient (Routine) - Closed Specialty Diagnoses / Referred By Contact Referred To Contact Procedures Cardiovascular Diseases / Diagnoses Bicuspid Aortic Valve (HCC) Phyllis Ramírez, [facility] Cardiovascular Disease Silvio [address] [place] [address] Referral ID Status Reason Start Date Expiration Date Visits Requ ested Visits Authorized [id number] Closed 11/03/2017 11/03/2018 1 1 Encounter Details Date Type Department Care Team Description 11/03/2017 Orders Only Department of [facility] Phyllis Ramírez, Bic uspid Aortic Valve Medicine, Oren Anguiano (HCC) (Primary Dx) Clinic, in [address] [facility] [id number] [place] [address] [phone] (Work) [phone] Social History Tobacco Use Types Packs/Day Years [...] 08/02/2020 relatives? How often do you attend presybeterian or rastafarian 1 to 4 times per year 08/02/2020 services? Do you belong to any clubs or organizations such No 08/02/2020 as presybeterian groups, unions, fraternal or athletic groups, or [...] documented as of this encounter Care Teams Forest Law And Policy Professor Relationship Specialty Start Date End Date Miranda Reece APRN, C.N.P., PCP - General 02/04/18 M.S.N. [address] [place] [address] documented as of this encounter
--- OUTSIDE RECORDS SUMMARY | 2022-02-23 07:16 | XMS_ITS | Encounter Summary ---
:1998 Author Organization [facility] Address [address] [place] [address] Care Team Providers Name Role Phone Unavailable [...] How often do you attend mosque or mormon 1 to 4 times per [...] Electronically signed by: ?? Yoli Hickman MD. ??[id number] 1998 15:04 Procedure Note Cecily Hickman M.D. [...] Hickman MD. [phone] 1 2:29 Robert Nikc M.D. IMG DIAGNOSTIC IMAGING PROCE DURES DX [...] AM 9 5:11 CDT PM CDT Narrative [facility] - 1998 9:09 AM CDT 1998 ?[id number] ?Ro ?09:09 ?? Subsq Order for NB: ?Blood Component ?R BC, Irradiated Leukoreduced ?CPDA-1, Divided ?Transfused ? 28 Jan 1999 ?Unit Number Id ? [id number] Procedure Note 09/15/2017 1998 [id number] Ro 09:09 Subsq Order for NB: Blood Component RBC, Irradiated Leukore duced CPDA-1, Divided Transfused 28 Jan 1999 Unit Number Id [id number] Historical Provider LAB HISTORICAL ORDERS Performing Organization Address City/State/ZIP Code Phon e Number [facility] - [address] [place] [address] [address] [facility] Prepare Red Blood Cells (1998 9:08 AM CDT) Specimen Anatomical Collection Method Collection Time Receive d Time (Source) Location / / Volume Laterality 1998 9:08 AM 9 2:17 CDT PM CDT Narrative [facility] - 1998 9:08 AM CDT 1998 ?[id number] ?Ro ?09:08 ?? RBC TRF Order: ?ABO/RH ? O POS ?Antibody Screen ?N eg Procedure Note 09/15/2017 1998 [id number] Ro 09:08 RBC TRF Order: ABO/RH O POS Antibody Screen Neg Historical Provider BLOOD BANK PRODUCT ORDERABLE S Performing Organization Address [facility] Phon e Number [facility] - [address] ABORh, RBC (1998 9:08 AM CDT) Specimen Anatomical Collection Method Collection Time Receive d Time (Source) Location / / Volume Laterality 1998 9:08 AM 9 9:54 CDT AM CDT Narrative [facility] - 1998 9:08 AM CDT 1998 ?[id number] ?Ro ?09:08 ?? ABO and Rh Order (2): ?ABO/RH ? O POS Procedure Note 09/15/2017 1998 [id number] Ro 09:08 ABO and Rh Order (2): ABO/RH O POS Historical Provider LAB BLOOD BANK TEST ORDERABL ES Performing Organization Address [facility] Code Phon e Number [facility] - [address] DX Chest and Abdomen Portable 1 [...] 1998 09:53 [place] GONZALEZ DIAGNOSTIC IMAGING PROCE BRARETT documented in this encounter Visit Diagnoses Not on filedocumented in this encounter
--- OUTSIDE RECORDS SUMMARY | 2022-02-23 07:16 | XMS_ITS | Encounter Summary ---
:1998 Author Organization [facility] Address [address] [place] [address] Care Team Providers Name Role Phone Chevy, Miranda Guadalupe APRN C.N.P., M.S.N. Primary Care Pr ovider Reason for Visit Reason Comments Follow-up ER - [place] Encounter Details Date Type Department Care Team Description 10/13/2017 Office Visit Department of Family Chaparro Payan Bi cuspid Aortic Valve (HCC) (Primary Dx); Medicine, [place] PB[facility]AB[facility], in [address] [facility] [address] [place], [place] [phone] [address] (Work) [phone] Social History Tobacco Use Types Packs/Day Years [...] How often do you attend faith or quaker 1 to 4 times per [...] C DT Growth Chart: [facility] (Girls, 2-20 Years) documented in this [...] bothering her. 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 [address] [place] [address] documented as of this encounter
--- OUTSIDE RECORDS SUMMARY | 2022-02-23 07:16 | XMS_ITS | Encounter Summary ---
:1998 Author Organization [facility] Address [address] [place] [address] Care Team Providers Name Role Phone Unavailable Primary Care Provider Unavailable Encounter Details Date Type Department Care Team Description 04/17/2011 Hospital Encounter HX [facility] FAMILY[facility] Norman Payan P.A.-C. [address] [place] [address] (Wo rk) Social History Tobacco [...] How often do you attend sikh or taoist 1 to 4 times per year 08/02/2020 [...] (97 lb 7.1 oz) 04/17/2011 3:56 PM REPAIR OPERATOR Height 149.2 cm (4' 10.74) 04/17/2011 3:56 PM REPAIR OPERATOR Body Mass Index 19.86 04/17/2011 3:56 PM REPAIR OPERATOR Body Mass Index Percentile 69.40 % 04/17/2011 3:56 PM CS T Growth Chart: [facility] (Girls, 2-20 Years) documented in this encounter Progress Notes Mikael Payan P.A.-C. - 04/17/2011 12:00 AM CST [id number] CHIEF COMPLAINT/ REASON FOR VISIT Sport's history [...] recommend that she follow up with an sports book board attendant for further evaluation and treatment of this and otherwise she may participate in sports without any restrictions. If there are any questions or problems she will let us know, otherwise follow up as needed. TLR/kln Signed [facility] Electronically Signed By: MIKAEL PAYAN PA-C On: 04/20/2011 01:49 PM Source: [facility] MHSDOLBEYNONRADSYS Document Id: [id number] IR OPERATOR documented in this encounter Procedure Notes Conversion, Historical Provider Ser - 04/17/2011 4:36 PM CST Vision Testing Vision Testing Entered On: 04/17/2011 16:36 REPAIR OPERATOR Performed On: 04/17/2011 16:36 REPAIR OPERATOR by VIVIAN PEDERSEN LPN Vision Testing Corrective Lenses : None Eye, Right w/o Correction : 20/50 Eye, Left w/o Correction : 20/70 NUVIALACHO CroweSesar Castrejon LPN - 04/17/2011 16:36 REPAIR OPERATOR [facility] Document Id: [id number] REPAIR OPERATOR!5 documented in this encounter Miscellaneous Notes Miscellaneous - Mikael Payan P.A.-C. - 04/17/2011 4:28 PM CST Ambulatory Patient Summary [address] [address] Visit Information Name: CITLALY HOLLAND Current Date: [...] No Appointments found Your Goals/Additional instructions: [facility] Document Id: [id number] IR OPERATOR Miscellaneous - Mikael Payan P.A.-C. - 04/17/2011 4:28 PM CST Ambulatory Depart Summary [address] [address] Visit Information Name: CITLALY HOLLAND Current Date: [...] for Pain / Fever Additional Information: Source: [facility] POWERCHART Document Id: [id number] IR OPERATOR Miscellaneous - Conversion, Historical Provider Ser - 04/17/2011 3:56 PM REPAIR OPERATOR Pediatric Desktop Support Manager Intake/History Pediatric Desktop Support Manager Intake/History Entered On: 04/17/2011 15:59 REPAIR OPERATOR Performed On: 04/17/2011 15:56 REPAIR OPERATOR by VIVIAN PEDERSEN LPN Intake Peripheral Pulse Rate : 84/min Respiratory Rate : 20/min Systolic Blood Pressure : 106mmHg Diastolic Blood Pressure : 52mmHg NIBP Mean : 70mmHg BP Location : Right upper extremity Heart Rhythm : Regular VIVIAN PEDERSEN LPN - 04/17/2011 15:59 REPAIR OPERATOR Chief Complaint : Sports physical Ambulatory Intake Additional Information : Arm span:145 cm Temperature Oral : 36.7C(Converted to: 98.1DegF) Height : 149.2cm(Converted to: 4ft 11inch(es), 58.74inch(es)) Actual Weight : 44.2kg(Converted to: 97lb 7oz) Weight Source : Standing scale Dosing Weight Clinic : 44.20kg Clinic BSA : 1.35 Body Mass Index : 19.86kg/m2 VIVIAN PEDERSEN [facility] - 04/17/2011 15:56 REPAIR OPERATOR Subjective Pain Symptoms : No VIVIAN PEDERSEN MATRIX INSPECTOR - 04/17/2011 15:56 REPAIR OPERATOR Dependent Habits Tobacco Use/Currently Using : No Tobacco Use/Last 12 months : No Smoking Status : Never smoker Alcohol Use : No VIVIAN PEDERSEN [facility] - 04/17/2011 15:56 REPAIR OPERATOR Caffeine Use Grid Caffeine Use : Current Type : Chocolate, Soft drinks Frequency : Monthly Amount : 2 times per month Last Use : today VIVIAN PEDERSEN [facility] 04/17/2011 15:56 REPAIR OPERATOR Recreational Drug Use Grid Drug Use : None VIVIAN PEDERSEN [facility] 04/17/2011 15:56 REPAIR OPERATOR Allergy Allergies (Active) penicillin Estimated Onset Date: Unspecified ; Created By: CHARO TENORIO; Reaction Status: Active ; Category: Drug ; Substance: penicillin ; Type: Allergy ; Severity: Mild ; Updated By: CHARO TENORIO; Source: Family ; Reviewed Date: 04/17/2011 15:52 REPAIR OPERATOR Source: [facility] POWERCHART Document Id: [id number] REPAIR OPERATOR!9 documented in this encounter Plan of Treatment Not on filedocumented as of this encounter Visit Diagnoses Not on filedocumented in this encounter
--- OUTSIDE RECORDS SUMMARY | 2022-02-23 07:16 | XMS_ITS | Encounter Summary ---
:1998 Author Organization [facility] Address [address] [place] [address] Care Team Providers Name Role Phone Chaparro Payan P.A.-C. Primary Care Provider [phone] Encounter Details Date Type Department Care Team Description 02/20/2020 Orders Only [facility] SEM[facility] PCP HLTH MNT Chaparro Payan P.A.-C. [address] [place] [address] (Wo rk) Social History [...] How often do you attend tenriism or mu-ism 1 to 4 times per year 08/02/2020 [...] documented as of this encounter Care Teams Rehab Aide Relationship Specialty Start Date End Date Chaparro Payan P.A.-C. PCP - General 02/05/[address] [place] [phone] documented as of this encounter
== END 2022-02-23 07:14 | disposition home or self-care (01) ==
LOC: US 07:14
PROVIDERS: Visit Provider Obstetrics & Gynecology
DX: O24.419 Gestational diabetes mellitus in pregnancy, unspecified control (principal)
CPT/HCPCS: 76819

== ENCOUNTER 2022-02-28 09:47 | Outpatient (CLI) | payer OTHER, SELFPAY ==
--- OUTSIDE RECORDS SUMMARY | 2022-02-28 09:50 | XMS_ITS | Encounter Summary ---
:1998 Author Organization [facility] Address [address] [place] [address] Care Team Providers Name Role Phone Chaparro Payan P.A.-C. Primary Care Provider [phone] Reason for Visit Reason Onset Date Comments Testing For Upper Respiratory Virus Symptoms 06/23/2020 Encounter Details Date Type Department Care Team Description 06/23/2020 External Outreach Department of Wood Guzman And Internal Medicine in J, D.OBettie (Suspected) Exposure [place], [place] [address] [place] [address] To COVID-19 (Primary [address] [place], [place] Dx) [place] [phone] Social History Tobacco Use Types Packs/Day Years [...] How often do you attend druze or mormonism 1 to 4 times per year 08/02/2020 [...] Influenza, RSV, and/or Group A Strep testing. RETAILER documented in this encounter Plan of Treatment Not on filedocumented as of this encounter Procedures Procedure Name Priority Date/Time Associated Diagnosis Comme nts SARS CORONAVIRUS-2 Routine 06/23/2020 1:35 PM Contact With And Results for this RNA, V WEB RETAILER (Suspected) Exposure procedu re are in To COVID-19 the results section. documented in this encounter Results SARS Coronavirus-2 RNA, V Symptomatic (06/23/2020 1:35 PM WEB RETAILER) [facility] Method Time Signature SARS-CoV-2 Swab, 06/24/2020 MKTO Specimen Nasopharynx 2:17 PM WEB RETAILER Source SARS CoV-2 Undetected Undetected 06/24/2020 MKTO RNA, TMA 2:17 PM WEB RETAILER Comment: SARS-CoV-2 RNA absent. This result does not rule out COVID-19 in the patient, as the sensitivity of the test depends o n the timing of the specimen collection and the quality of the specim en. Result should be correlated with patient's history and clinical presentat ion. ----ADDITIONAL INFORMATION---- This molecular amplification test was pe rformed using the Aptima SARS-CoV-2 assay ([employer] on the CRE Secures tem under emergency use authorization (EUA) by the U.S. Food and Drug Administ ration. Fact sheets for this EUA assay can be fo und at the following links: For Healthcare Providers: https://www.fd a.gov/media/801296/download For Patients: https://www.fda.gov/media/ 294943/download Specimen Anatomical Collection Method Collection Time Receive d Time (Source) Location / / Volume Laterality Varies 06/23/2020 1:35 PM 6:28 (Nasopharynx) WEB RETAILER AM WEB RETAILER Wood Guzman D.O. LAB MICROBIOLOGY - GENERAL O RDERABLES Performing Organization Address City/State/ZIP Code Phon e Number [facility]- [address] [place] [address] [place] [address] System in [place] [address] [place] [address] documented in this encounter Visit Diagnoses Diagnosis Contact With And (Suspected) Exposure To COVID-19 - Primary documented in this encounter Additional Health Concerns Infection Onset Date Last Indicated Resolved Time COVID19 Pending 06/23/2020 06/23/2020 06/24/2020 2:18 PM WEB RETAILER Assessment Noted Time PHQ-9 Depression Total Score: 8 10/13/2017 12:58 PM CD T documented as of this encounter Care Teams Textbook Associate Relationship Specialty Start Date End Date Chaparro Payan P.A.-C. PCP - General 02/05/[address] [place] [phone] documented as of this encounter
--- OUTSIDE RECORDS SUMMARY | 2022-02-28 09:50 | XMS_ITS | Encounter Summary ---
:1998 Author Organization [facility] Address [address] [place] [address] Care Team Providers Name Role Phone Chaparro Pyaan P.A.-C. Primary Care Provider [phone] Reason for Visit Reason Onset Date Comments Left Without Being Seen 09/16/2021 Appointment Request (Routine) - Authorized Specialty Diagnoses / Procedures Referred By Contact Refer red To Contact Maternal and Diagnoses Bicuspid Aortic Valve (HCC) Abnormal Ultrasound Jay Kebede, [facility] Audra GillilandNGurdeep [address] [place] [address] Referral ID Status Reason Start Date Expiration Date Visits V isits Requested Authorized [id number] Authorized 08/25/2021 08/25/2022 3 3 Encounter Details Date Type Department Care Team Description 09/16/2021 Comprehensive Visit Department of Shelbi Tse Proce dure And Obstetrics and M.S., CGC Treatment Not Gynecology in [address] [place] [address] Carried Out Due To [place], [place] Patient Leaving [address] [place] [phone] Prior To Being Seen [place], [place] [phone] By [facility] [phone] (Work) Provider (Primary [phone] Dx) (Fax) Social History Tobacco Use Types [...] How often do you attend yazdanism or mormonism 1 to 4 times per [...] documented as of this encounter Care Teams Primary Care Provider Relationship Specialty Start Date End Date Chaparro Payan P.A.-C. PCP - General 02/05/[address] [place] [phone] documented as of this encounter
--- OUTSIDE RECORDS SUMMARY | 2022-02-28 09:50 | XMS_ITS | Encounter Summary ---
:1998 Author Organization [facility] Address [address] [place] [address] Care Team Providers Name Role Phone Chaparro Payan P.A.-C. Primary Care Provider [phone] Encounter Details Date Type Department Care Team Description 07/12/2020 Admin Visit Department of Family Medicine, [address] [address] [facility] [phone] Social History Tobacco Use Types Packs/Day Years [...] How often do you attend zoroastrianism or buddhist 1 to 4 times per year 08/02/2020 [...] COVID19 Pending 07/12/2020 07/12/2020 07/13/2020 1:56 AM SAFETY DEPOSIT BOXES CUSTODIAN Assessment Noted Time PHQ-9 Depression Total Score: 8 10/13/2017 12:58 PM CD T documented as of this encounter Care Teams Pharmacy Resource Tech Relationship Specialty Start Date End Date Chaparro Payan P.A.-C. PCP - General 02/05/[address] [place] [phone] documented as of this encounter
--- OUTSIDE RECORDS SUMMARY | 2022-02-28 09:50 | XMS_ITS | Encounter Summary ---
:1998 Author Organization [facility] Address [address] [place] [address] Care Team Providers Name Role Phone Chaparro Payan P.A.-C. Primary Care Provider [phone] Encounter Details Date Type Department Care Team Description 02/20/2020 Orders Only [facility] PCP HLTH MNT Chaparro Payan P.A.-C. [address] [place] [address] (Wo rk) Social History [...] 08/02/2020 relatives? How often do you attend religion or hinduism 1 to 4 times per year 08/02/2020 services? Do you belong to any clubs or organizations such No 08/02/2020 as religion groups, unions, fraternal or athletic groups, or [...] documented as of this encounter Care Teams Pump Tender Relationship Specialty Start Date End Date Chaparro Payan P.A.-C. PCP - General 02/05/[address] [place] [phone] documented as of this encounter
--- OUTSIDE RECORDS SUMMARY | 2022-02-28 09:50 | XMS_ITS | Encounter Summary ---
:1998 Author Organization [facility] Address [address] [place] [address] Care Team Providers Name Role Phone Chaparro Payan P.A.-C. Primary Care Provider [phone] Encounter Details Date Type Department Care Team Description 06/23/2020 Admin Visit Department of Family Medicine, [address] [address] [facility] [phone] Social History Tobacco Use Types Packs/Day Years [...] 08/02/2020 relatives? How often do you attend christian or moravian 1 to 4 times per year 08/02/2020 services? Do you belong to any clubs or organizations such No 08/02/2020 as christian groups, unions, fraternal or athletic groups, or [...] COVID19 Pending 06/23/2020 06/23/2020 06/24/2020 2:18 PM GARDE MANAGER Assessment Noted Time PHQ-9 Depression Total Score: 8 10/13/2017 12:58 PM CD T documented as of this encounter Care Teams Buying Intern Relationship Specialty Start Date End Date Chaparro Payan P.A.-C. PCP - General 02/05/[address] [place] [phone] documented as of this encounter
--- OUTSIDE RECORDS SUMMARY | 2022-02-28 09:50 | XMS_ITS | Encounter Summary ---
:1998 Author Organization [facility] Address [address] [place] [address] Care Team Providers Name Role Phone Chaparro Payan P.A.-C. Primary Care Provider [phone] Reason for Visit Reason Comments COVID Inquiry Encounter Details Date Type Department Care Team Description 06/23/2020 Clinical [facility] [place] [facility] Inquiry Cardiovascular Surgery Provider in [place], [place] [address] [place] [address] Social History Tobacco Use Types [...] 08/02/2020 relatives? How often do you attend adventist or rastafarian 1 to 4 times per year 08/02/2020 services? Do you belong to any clubs or organizations such No 08/02/2020 as adventist groups, unions, fraternal or athletic groups, or [...] LABORATORY CONFIRMED case ofCOVID-19?: Yes exposure noted. [place] patient, instruct to quarantine, testing indicated (End Screening) Testing Recommendation Endpoint Is testing recommended? : Recommended to test Plan: Endpoint recommendation: Testing indicated, advised to be swabbed for COVID-19 Only , sent to [facility] located at [address] [place] [address]. The entrance is on the north side of the building. You must call [phone] for an appointment time.Testing hours are Daily [...] sending patient for testing in [facility] or [facility], route encounter to the correct testing pool. ETING SALES REPRESENTATIVE documented in this encounter Plan of Treatment Not on filedocumented as of this encounter Visit Diagnoses Not on filedocumented in this encounter Additional Health Concerns Infection Onset Date Last Indicated Resolved Time COVID19 Pending 06/23/2020 06/23/2020 06/24/2020 2:18 PM MARKETING SALES REPRESENTATIVE Assessment Noted Time PHQ-9 Depression Total Score: 8 10/13/2017 12:58 PM CD T documented as of this encounter Care Teams Die Machine Operator Relationship Specialty Start Date End Date Chaparro Payan P.A.-C. PCP - General 02/05/[address] [place] [phone] documented as of this encounter
--- OUTSIDE RECORDS SUMMARY | 2022-02-28 09:50 | XMS_ITS | Encounter Summary ---
:1998 Author Organization [facility] Address [address] [place] [address] Care Team Providers Name Role Phone Chaparro Payan P.A.-C. Primary Care Provider [phone] Reason for Referral Specialty Diagnoses / Procedures Referred By Contact Refer red To Contact [facility] Cli winnie [facility] Region [address] [place] [address] Referral ID Status Reason Start Date Expiration Date Visits Requ ested Visits Authorized Reason for Visit Appointment Request (Routine) - Closed Specialty Diagnoses / Procedures Referred By Contact Refer red To Contact Family Medicine Referral ID Status Reason Start Date Expiration Date Visits Requ ested Visits Authorized [id number] Closed 01/29/2021 01/29/2022 1 1 Encounter Details Date Type Department Care Team Description 02/07/2021 Immunization Department of [facility] er For COVID-19 Medicine, [place] Vaccine I mmunization Clinic, in [facility] (Primar y Dx) [place] [address] [place] [address] Social History Tobacco Use Types Packs/Day [...] How often do you attend spiritism or orthodox 1 to 4 times per [...] documented as of this encounter Care Teams Floor Worker Well Service Relationship Specialty Start Date End Date Chaparro Payan P.A.-C. PCP - General 02/05/[address] [place] [phone] documented as of this encounter
--- OUTSIDE RECORDS SUMMARY | 2022-02-28 09:50 | XMS_ITS | Encounter Summary ---
:1998 Author Organization [facility] Address [address] [place] [address] Care Team Providers Name Role Phone Chevy, Miranda Guadalupe APRN C.N.PBettie, M.S.N. Primary Care Pr ovider Reason for Referral Outpatient (Routine) - Closed Specialty Diagnoses / Procedures Referred By Contact Refer red To Contact Diagnoses Bicuspid Aortic Valve (HCC) Fatigue par review Phyllis Ramírez M.D. [facility] [place] [facility] Procedures Echo Transthoracic (TTE) OK ECHO TTE 2D W DPLR COMPLETE CVD ECHO [address] [place] [address] Referral ID Status Reason Start Date Expiration Date Visits Requ ested Visits Authorized [id number] Closed 09/03/2017 03/02/2018 1 1 Reason for Visit Outpatient (Routine) - Closed Specialty Diagnoses / Procedures Referred By Contact Refer red To Contact Diagnoses Bicuspid Aortic Valve (HCC) Fatigue par review Phyllis Ramírez M.D. [facility] [place] [facility] Procedures Echo Transthoracic (TTE) OK ECHO TTE 2D W DPLR COMPLETE CVD ECHO [address] [place] [address] Referral ID Status Reason Start Date Expiration Date Visits Requ ested Visits Authorized [id number] Closed 09/03/2017 03/02/2018 1 1 Encounter Details Date Type Department Care Team Description 11/02/2017 Hospital Encounter Department of Phyllis Ramírez Aortic Valve (HCC); Cardiovascular Diseases Silvio Winter Fatigue in [place] Frausto [address] [place], [place] SWEETIE FRAUSTO [phone] Social History Tobacco Use Types Packs/Day Years [...] How often do you attend synagogue or zoroastrian 1 to 4 times per [...] ECHO DOPPLER COLOR (11/02/2017 8:41 AM CDT) [facility] Method Time Signature Ejection Fraction 59 MC [...] documented as of this encounter Care Teams Technician'S Helper Relationship Specialty Start Date End Date Reece, Miranda Guadalupe APRN, C.N.P., PCP - General 02/04/18 M.S.N. [address] [place] [phone] documented as of this encounter
--- OUTSIDE RECORDS SUMMARY | 2022-02-28 09:50 | XMS_ITS | Encounter Summary ---
:1998 Author Organization [facility] Address [address] [place] [address] Care Team Providers Name Role Phone Chaparro Payan P.A.-C. Primary Care Provider [phone] Reason for Visit Reason Onset Date Comments Outpatient COVID-19 Testing 03/27/2020 Encounter Details Date Type Department Care Team Description 03/27/2020 External Outreach Department of Wood Guzman Infect ion Upper Internal Medicine in J, D.O. Respiratory (Primary [place], [place] [address] Dx) [address] [place] [phone] Social History Tobacco Use Types Packs/Day Years [...] 08/02/2020 relatives? How often do you attend baptist or sikhism 1 to 4 times per year 08/02/2020 services? Do you belong to any clubs or organizations such No 08/02/2020 as baptist groups, unions, fraternal or athletic groups, or [...] RNA, V Symptomatic (03/28/2020 3:08 PM CDT) [facility] Method Time Signature SARS-CoV-2 Swab, 03/29/2020 [...] is performed using the Aptima SARS-CoV-2 assay ([employer] which has received Emergency Use Authori zation (EUA) by the U.S. Food and Drug Administration. Fact sheets for this Emergency Use Autho rization (EUA) assay can be found at the following links: For Healthcare Providers: https://www.fd a.gov/media/933328/download For Patients: https://www.fda.gov/media/ 097225/download Specimen Anatomical Collection Method Collection Time Receive d Time (Source) Location / / Volume Laterality Varies 03/28/2020 3:08 PM 0 1:47 (Nasopharynx) CDT AM CDT Wood Guzman D.O. LAB MICROBIOLOGY - GENERAL O RDERABROOKE Performing Organization Address City/State/ZIP Code Phon e Number [facility] [place] [address] [place] [address] System in [place] [address] [place] [address] documented in this encounter Visit Diagnoses Diagnosis Infection Upper Respiratory - Primary documented in this encounter Additional Health Concerns Infection Onset Date Last Indicated Resolved Time COVID19 Pending 03/27/2020 03/28/2020 03/29/2020 10:23 PM CDT Assessment Noted Time PHQ-9 Depression Total Score: 8 10/13/2017 12:58 PM CD T documented as of this encounter Care Teams Design Maintenance Engineer Relationship Specialty Start Date End Date Chaparro Payan P.A.-C. PCP - General 02/05/18 [address] [place] [phone] documented as of this encounter
--- OUTSIDE RECORDS SUMMARY | 2022-02-28 09:50 | XMS_ITS | Encounter Summary ---
:1998 Author Organization [facility] Address [address] [place] [address] Care Team Providers Name Role Phone Chevy, Miranda Guadalupe APRN C.N.P., M.S.N. Primary Care Pr ovider Reason for Visit Reason Comments New Patient Outpatient (Routine) - Closed Specialty Diagnoses / Referred By Contact Referred To Contact Procedures Cardiovascular Diseases / Diagnoses Bicuspid Aortic Valve (HCC) Phyllis Ramírez, [facility] Region Cardiovascular Disease M.DBettie [address] [place] [address] Referral ID Status Reason Start Date Expiration Date Visits Requ ested Visits Authorized [id number] Closed 11/03/2017 11/03/2018 1 1 Encounter Details Date Type Department Care Team Description 11/17/2017 Comprehensive Visit Department of Rene Minor Aortic Cardiovascular TSilvio, M.P.H. Valve (HCC) Diseases in [address] [place] [address] 300 [facility] [address] [place], [place] [phone] (Work) [phone] Social History Tobacco Use Types Packs/Day Years [...] How often do you attend sikhism or synagogue 1 to 4 times per [...] documented as of this encounter Care Teams Front End Architect Relationship Specialty Start Date End Date Miranda Reece APRN, C.N.P., PCP - General 02/04/18 M.S.N. [address] [place] [address] documented as of this encounter
--- OUTSIDE RECORDS SUMMARY | 2022-02-28 09:50 | XMS_ITS | Encounter Summary ---
:2000 Author Organization [facility] Address [address] [place] [address] Care Team Providers Name Role Phone Reece, Miranda Guadalupe APRN C.N.PBettie, M.S.N. Primary Care Pr ovider Reason for Referral Outpatient (Routine) - Closed Specialty Diagnoses / Referred By Contact Referred To Contact Procedures Cardiovascular Diseases / Diagnoses Bicuspid Aortic Valve (HCC) Phyllis Ramírez, [facility] Cardiovascular Disease Silvio [address] [place] [address] Referral ID Status Reason Start Date Expiration Date Visits Requ ested Visits Authorized [id number] Closed 11/03/2017 11/03/2018 1 1 Encounter Details Date Type Department Care Team Description 11/03/2017 Orders Only Department of [facility] Phyllis Ramírez, Bic uspid Aortic Valve Medicine, Oren Anguiano (HCC) (Primary Dx) Clinic, in [address] [facility] [id number] [place] [address] [phone] (Work) [phone] Social History Tobacco Use Types Packs/Day Years [...] How often do you attend adventism or scientologist 1 to 4 times per [...] documented as of this encounter Care Teams Arabic Linguist Relationship Specialty Start Date End Date Miranda Reece APRN, C.N.P., PCP - General 02/04/18 M.S.N. [address] [place] [address] documented as of this encounter
--- OUTSIDE RECORDS SUMMARY | 2022-02-28 09:50 | XMS_ITS | Encounter Summary ---
:2000 Author Organization [facility] Address [address] [place] [address] Care Team Providers Name Role Phone Chaparro Payan P.A.-C. Primary Care Provider Encounter Details Date Type Department Care Team Description 08/30/2020 Orders Only [facility] Sa daina Buckley M.D. [address] [place], [place] [phone] (Wo rk) Social History [...] often do you attend latter day or yazdanism 1 to 4 times per year 08/02/2020 [...] documented as of this encounter Care Teams Doughnut Icer Relationship Specialty Start Date End Date Chaparro Payan P.A.-C. PCP - General 02/05/[address] [place] [phone] documented as of this encounter
--- OUTSIDE RECORDS SUMMARY | 2022-02-28 09:50 | XMS_ITS | Encounter Summary ---
:2000 Author Organization [facility] Address [address] [place] [address] Care Team Providers Name Role Phone Chaparro Payan P.A.-C. Primary Care Provider [phone] Reason for Referral Outpatient (Routine) - Closed Specialty Diagnoses / Procedures Referred By Contact Refer red To Contact Diagnoses Bicuspid Aortic Valve (HCC) Americo Bear M.D. [facility] Procedures Echo Transthoracic (TTE) - Adult Congenital [address] [place] [address] [phone] Referral ID Status Reason Start Date Expiration Date Visits Requ ested Visits Authorized [id number] Closed 09/11/2021 09/11/2022 1 1 Reason for Visit Appointment Request (Routine) - Authorized Specialty Diagnoses / Procedures Referred By Contact Refer red To Contact Maternal and Diagnoses Bicuspid Aortic Valve (HCC) Abnormal Ultrasound [facility] Sonya Gilliland.NGurdeep [address] [place] [address] Referral ID Status Reason Start Date Expiration Date Visits V isits Requested Authorized [id number] Authorized 08/25/2021 08/25/2022 3 3 Encounter Details Date Type Department Care Team Description 09/16/2021 Routine Department of Americo Bear Bicuspid Aortic Valve Obstetrics and Silvio (HCC) (Primary Dx) Gynecology in [address] [place], [place] [address] [place] [phone] [place], [place] [phone] (Work) [phone] Social History Tobacco Use Types Packs/Day Years [...] How often do you attend sikhism or taoist 1 to 4 times per [...] COLOR AND DOPPLER (09/16/2021 1:54 PM CDT) [facility] Method Time Signature Ejection Fraction 64 [...] original. For the complete report, see the [employer] Tapn[employer]rap Documents. Final Impressions 1. Bicuspid aortic valve [...] documented as of this encounter Care Teams Speech And Hearing Director Relationship Specialty Start Date End Date Chaparro Payan P.A.-C. PCP - General 02/05/[address] [place] [phone] documented as of this encounter
--- OUTSIDE RECORDS SUMMARY | 2022-02-28 09:50 | XMS_ITS | Encounter Summary ---
:2000 Author Organization [facility] Address [address] [place] [address] Care Team Providers Name Role Phone Chaparro Payan P.A.-C. Primary Care Provider [phone] Reason for Visit Reason Onset Date Comments Outpatient COVID-19 Testing 07/12/2020 Encounter Details Date Type Department Care Team Description 07/12/2020 External Outreach Department of Family Wood Guzman Contact With And Medicine, [facility] Abdulkadir Witner D.O. (Suspected) Exposure Building, in 2199 To COVID-19 (Primary [place], [place] Dx) [address] [facility] [address] [place], [place] [phone] [address] (Work) [phone] Social History Tobacco Use Types Packs/Day Years [...] How often do you attend yazidism or anabaptism 1 to 4 times per year 08/02/2020 [...] PM CST Encounter created for COVID-19 screening. MECHANIC documented in this encounter Plan of Treatment Not on filedocumented as of this encounter Procedures Procedure Name Priority Date/Time Associated Diagnosis Comme nts SARS CORONAVIRUS-2 Routine 07/12/2020 4:07 PM Contact With And Results for this RNA, V BODY MECHANIC (Suspected) Exposure procedu re are in To COVID-19 the results section. documented in this encounter Results SARS Coronavirus-2 RNA, V Asymptomatic (07/12/2020 4:07 PM BODY MECHANIC) [facility] Method Time Signature SARS-CoV-2 Swab, 07/13/2020 MKTO Specimen Nasopharynx 1:56 AM BODY MECHANIC Source SARS CoV-2 Undetected Undetected 07/13/2020 [facility]TO RNA, TMA 1:56 AM BODY MECHANIC Comment: SARS-CoV-2 RNA absent. This result does not rule out COVID-19 in the patient, as the sensitivity of the test depends o n the timing of the specimen collection and the quality of the specim en. Result should be correlated with patient's history and clinical presentat ion. ----ADDITIONAL INFORMATION---- This molecular amplification test was pe rformed using the Aptima SARS-CoV-2 assay ([employer] on the [employer] Diagnostic[employer] tem under emergency use authorization (EUA) by the U.S. Food and Drug Administ ration. Fact sheets for this EUA assay can be fo und at the following links: For Healthcare Providers: https://www.fd a.gov/media/735695/download For Patients: https://www.fda.gov/media/ 175405/download Specimen Anatomical Collection Method Collection Time Receive d Time (Source) Location / / Volume Laterality Varies 07/12/2020 4:07 PM 02/12/202 1 8:44 (Nasopharynx) BODY MECHANIC PM BODY MECHANIC Wood Guzman D.O. LAB MICROBIOLOGY - GENERAL O JIMMY Performing Organization Address City/State/ZIP Code Phon e Number [facility]- [address] [place] [id number] [place] [address] [place] [address] System [address] documented in this encounter Visit Diagnoses Diagnosis Contact With And (Suspected) Exposure To COVID-19 - Primary documented in this encounter Additional Health Concerns Infection Onset Date Last Indicated Resolved Time COVID19 Pending 07/12/2020 07/12/2020 07/13/2020 1:56 AM BODY MECHANIC Assessment Noted Time PHQ-9 Depression Total Score: 8 10/13/2017 12:58 PM CD T documented as of this encounter Care Teams Medical Record Administrator Relationship Specialty Start Date End Date Chaparro Payan P.A.-C. PCP - General 02/05/[address] [place] [phone] documented as of this encounter
--- OUTSIDE RECORDS SUMMARY | 2022-02-28 09:50 | XMS_ITS | Encounter Summary ---
:2000 Author Organization [facility] Address [address] [place] [address] Care Team Providers Name Role Phone Chaparor Payan P.A.-C. Primary Care Provider [phone] Reason for Visit Reason Comments COVID Inquiry Encounter Details Date Type Department Care Team Description 07/12/2020 Clinical Communication Department of KATHIE Sewell [facility], [address] [address] [place], [place] [phone] [address] (Work) [phone] Social History Tobacco Use Types Packs/Day Years [...] How often do you attend hoahaoism or sabianist 1 to 4 times per [...] LABORATORY CONFIRMED case ofCOVID-19?: Yes exposure noted. [place] patient, instruct to quarantine, testing indicated (End Screening) Testing Recommendation Endpoint Is testing recommended? : Recommended to test Plan: Endpoint recommendation: Testing indicated, advised to be swabbed for COVID-19 Only , sent to [facility] located at [address] [place] [address]. The entrance is on the north side of the building. You must call [phone] during the hours of 7am to 6 [...] sending patient for testing in T or [facility], route encounter to the correct testing pool. TITY ACCESS MANAGEMENT ARCHITECT documented in this encounter Plan of Treatment Not on filedocumented as of this encounter Visit Diagnoses Not on filedocumented in this encounter Additional Health Concerns Assessment Noted Time PHQ-9 Depression Total Score: 8 10/13/2017 12:58 PM CD T documented as of this encounter Care Teams Certified Neurodiagnostic Technologist Relationship Specialty Start Date End Date Chaparro Payan P.A.-C. PCP - General 02/05/[address] [place] [phone] documented as of this encounter
--- OUTSIDE RECORDS SUMMARY | 2022-02-28 09:50 | XMS_ITS | Encounter Summary ---
:2000 Author Organization [facility] Address [address] [place] [address] Care Team Providers Name Role Phone Chaparro Payan P.A.-C. Primary Care Provider [phone] Reason for Referral Outpatient (Routine) - Closed Specialty Diagnoses / Procedures Referred By Contact Refer red To Contact Family Medicine Chaparro Payan P. A.-C. [address] [phone] Referral ID Status Reason Start Date Expiration Date Visits Requ ested Visits Authorized [id number] Closed 08/02/2020 08/02/2021 1 1 RUCTION ASSISTANT PRINCIPAL Reason for Visit Reason Comments Annual Exam No concerns at this time. Appointment Request (Routine) - Closed Specialty Diagnoses / Procedures Referred By Contact Refer red To Contact Family Medicine Referral ID Status Reason Start Date Expiration Date Visits Requ ested Visits Authorized [id number] Closed 07/26/2020 07/26/2021 1 1 Encounter Details Date Type Department Care Team Description 08/02/2020 Comprehensive Visit Department of Shadia Payan Aortic Valve (HCC) (Primary Dx); Chaparro Rock P.A.-C. General Medical Examination Adult; [facility], [address] [place] [address] Pap Smear Examination; in [place], [place] Screening For Venereal Disease; [place] [address] [address] [phone] [place], [place] (Work) [phone] Social History Tobacco Use [...] How often do you attend caodaism or nondenominational 1 to 4 times per [...] Comments Blood Pressure 98/64 08/02/2020 2:23 PM INSTRUCTION ASSISTANT PRINCIPAL Pulse 84 08/02/2020 2:23 PM INSTRUCTION ASSISTANT PRINCIPAL Temperature 36.9 ??C (98.4 ??F) 08/02/2020 2:23 PM INSTRUCTION ASSISTANT PRINCIPAL Respiratory Rate 16 08/02/2020 2:23 PM INSTRUCTION ASSISTANT PRINCIPAL Oxygen Saturation - - Inhaled Oxygen Concentration - - Weight 88.5 kg (195 lb 1.7 oz) 08/02/2020 2:23 PM INSTRUCTION ASSISTANT PRINCIPAL Height 161.1 cm (5' 3.43) 08/02/2020 2:23 PM INSTRUCTION ASSISTANT PRINCIPAL Body Mass Index 34.1 08/02/2020 2:23 PM INSTRUCTION ASSISTANT PRINCIPAL documented in this encounter H&P Notes Chaparro [...] at a later date. Chaparro Payan P.A.-C. RUCTION ASSISTANT PRINCIPAL documented in this encounter Plan of Treatment Scheduled Referrals Name Type Priority Associated Diagnoses Order S [facility] Outpatient Referral Routine Expec sonal: office visit 08/02/2020 (clinic) (Approximate), Expires: 08/03/2023 documented as of this encounter Procedures Procedure Name Priority Date/Time Associated Diagnosis Comme nts CHLAMYDIA/GONORRHOE Routine 08/02/2020 3:32 PM Pap Smear Re sults for this AE AMPLIFIED RNA INSTRUCTION ASSISTANT PRINCIPAL Examination procedure are in Screening For the results Venereal Disease section. THINPREP SCREEN Routine 08/02/2020 3:30 PM Pap Smear Result s for this INSTRUCTION ASSISTANT PRINCIPAL Examination procedure are in Screening For the results Venereal Disease section. documented in this encounter Results Chlamydia / Gonorrhoeae Amplified RNA (08/02/2020 3:32 PM INSTRUCTION ASSISTANT PRINCIPAL) Patholo gist Method Time Signature Source Thin Prep 08/07/2020 DTL Vial, 5:29 PM INSTRUCTION ASSISTANT PRINCIPAL Cervix/Endoc ervix Chlamydia Negative Negative 08/07/2020 DTL trachomatis 5:29 PM INSTRUCTION ASSISTANT PRINCIPAL amplified RNA Source Thin Prep 08/07/2020 DTL Vial, 5:29 PM INSTRUCTION ASSISTANT PRINCIPAL Cervix/Endoc ervix Neisseria Negative Negative 08/07/2020 DTL gonorrhoeae 5:29 PM INSTRUCTION ASSISTANT PRINCIPAL amplified RNA Specimen Anatomical Collection Method Collection Time Receive d Time (Source) Location / / Volume Laterality Varies 08/02/2020 3:32 PM (Cervix/Endocerv INSTRUCTION ASSISTANT PRINCIPAL 10:15 AM CS T ix) Chaparro Payan P.A.-C. LAB MICROBIOLOGY - GENERAL O RDERABLES Performing Organization Address City/State/ZIP Code Phon e Number [facility] - [address] [place] [address] [address] [place] [address] [facility] 200 [facility] ThinPrep Screen (08/02/2020 3:30 PM INSTRUCTION ASSISTANT PRINCIPAL) Component Value Ref Test Analysis Performed Pathologis [...] AM tives CDT Report BRIAN Ward(ASCP) 08/13/2020 [facility] electronically I verify that I have examined all relevant slides/ma terials 9:16 AM signed by for the specimen(s) and rendered or confirmed the diagnosis. CDT Interpretation Cervical/Endocervical ??(ThinPrep): 08/13/2020 [facility] Satisfactory for Evaluation 9:16 AM Negative for Intraepithelial Lesion or Malignancy CDT Specimen Anatomical Collection Method Collection Time Receive d Time (Source) Location / / Volume Laterality Varies 08/02/2020 3:30 PM 9:06 (Cervix/Endocerv INSTRUCTION ASSISTANT PRINCIPAL AM INSTRUCTION ASSISTANT PRINCIPAL ix) Narrative This result has an attachment that is no t available. Chaparro Payan P.A.-C. LAB PAP PATHDX ORDERABLES Performing Organization Address City/State/ZIP Code Phon e Number [facility] [address] [place] [address] [facility] Cytology [address] [place] [address] documented in this encounter Visit Diagnoses Diagnosis Bicuspid Aortic Valve (HCC) - Primary General Medical Examination Adult Pap Smear Examination Screening For Venereal Disease Nevus documented in this encounter Additional Health Concerns Assessment Noted Time PHQ-9 Depression Total Score: 8 10/13/2017 12:58 PM CD T documented as of this encounter Care Teams Chemical Instrumentation Officer Relationship Specialty Start Date End Date Chaparro Payan P.A.-C. PCP - General 02/05/[address] [place] [phone] documented as of this encounter
--- OUTSIDE RECORDS SUMMARY | 2022-02-28 09:50 | XMS_ITS | Encounter Summary ---
:2000 Author Organization [facility] Address [address] [place] [address] Care Team Providers Name Role Phone Chaparro Payan P.A.-C. Primary Care Provider [phone] Encounter Details Date Type Department Care Team Description 09/16/2021 Hospital Encounter Department of Americo Bear [facility] Obstetrics and MJeronimo ([facility]) Gynecology in [address] [place] [address] [place] [phone] [place], [place] [phone] (Work) [phone] Social History Tobacco Use Types Packs/Day Years [...] How often do you attend anabaptist or spiritism 1 to 4 times per year 08/02/2020 [...] mg tablet Take 1 tablet by 0 [id number] (VINATE mouth daily. ONE) 60 mg iron-1 [...] AND OR GROWTH ABEL Exam Site: [facility][id number] Plurality: 1 OBHx: [G:(1)] [...] Read by Wing Willett on 8:30:37 AM. Event Specialist: ??Wing Willett Thank You For This Referral Procedure Note Yvonne Sanchez M.D. - 09/16/2021Forma tting of this note might be different from the original. CITLALY HOLLAND OB Exam, 09/16/2021 EXAM INFORMATION Patient Name: CITLALY HOLLAND : 2000 Age: 20 yrs Sex: Female Ref Phys: AMERICO BEAR Exam Date: 09/16/2021 Procedure: US OB FOLLOW-UP AND OR GROWTH ABEL Exam Site: [facility][id number] Plurality: 1 OBHx: [G:(1)] [...] by Wing Willett on 022 8:30:37 AM. Event Specialist: Wing Willett Thank You For This Referral Americo Bear M.D. IMG OB US PROCEDURES documented in this encounter Visit Diagnoses Diagnosis High Risk (HCC) documented in this encounter Additional Health Concerns Assessment Noted Time PHQ-9 Depression Total Score: 8 10/13/2017 12:58 PM CD T documented as of this encounter Care Teams Welding Lead Burner Relationship Specialty Start Date End Date Chaparro Payan P.A.-C. PCP - General 02/05/18 [address] [place] [phone] documented as of this encounter
--- OUTSIDE RECORDS SUMMARY | 2022-02-28 09:50 | XMS_ITS | Encounter Summary ---
:2000 Author Organization [facility] Address [address] [place] [address] Care Team Providers Name Role Phone Chaparro Payan P.A.-C. Primary Care Provider [phone] Encounter Details Date Type Department Care Team Description 03/28/2020 Admin Visit Department of Family Medicine, [address] [address] [facility] [phone] Social History Tobacco Use Types Packs/Day Years [...] 08/02/2020 relatives? How often do you attend mormonism or judaism 1 to 4 times per year 08/02/2020 services? Do you belong to any clubs or organizations such No 08/02/2020 as mormonism groups, unions, fraternal or athletic groups, or [...] documented as of this encounter Care Teams Bander Relationship Specialty Start Date End Date Chaparro Payan P.A.-C. PCP - General 02/05/[address] [place] [phone] documented as of this encounter
--- OUTSIDE RECORDS SUMMARY | 2022-02-28 09:50 | XMS_ITS | Encounter Summary ---
:2000 Author Organization [facility] Address [address] [place] [address] Care Team Providers Name Role Phone Chaparro Payan P.A.-C. Primary Care Provider [phone] Reason for Referral Outpatient (Routine) - Closed Specialty Diagnoses / Procedures Referred By Contact Refer red To Contact Diagnoses Lesion Skin Chest Chaparro Payan P.A.-C. Procedures Lesion Excision and Closure [address] [place] [phone] Referral ID Status Reason Start Date Expiration Date Visits Requ ested Visits Authorized [id number] Closed 08/12/2020 08/12/2021 1 1 Reason for Visit Reason Comments Suspicious Skin Lesion R upper breast mole removal Outpatient (Routine) - Closed Specialty Diagnoses / Procedures Referred By Contact Refer red To Contact Family Medicine Chaparro Payan P. A.-C. [facility] [address] [place] [address] Referral ID Status Reason Start Date Expiration Date Visits Requ ested Visits Authorized [id number] Closed 08/02/2020 08/02/2021 1 1 Encounter Details Date Type Department Care Team Description 08/12/2020 Office Visit Department of Family Chaparro Payan Le sion Skin Chest Medicine [facility] (Primary Dx) Clinic, in [address] [address] [place] CORTÉS [phone] (Work) [phone] Social History Tobacco Use Types Packs/Day Years [...] How often do you attend adventism or taoist 1 to 4 times per [...] Component Value Ref Test Analysis Performed At [facility] Range Method Time Signature 08/14/2020 JULIO 11:27 AM CDT Report Stevan Preez 08/14/2020 JULIO electronically MD Isra 11:27 AM [...] 0.1 cm light mcknight skin punch. ESBMandy. [employer] foundation/nm Interpretation FINAL DIAGNOSIS 08/14/2020 MKTO A. Skin, [...] LAB SURG PATH ORDERABLES Performing Organization Address [facility]/State/ZIP Code Phon e Number [facility]- [address] [place] [address] [place] [address] System in [address] Lesion Excision and Closure (08/12/2020 11:00 [...] documented as of this encounter Care Teams Electron Microscopist Relationship Specialty Start Date End Date Chaparro Payan P.A.-C. PCP - General 02/05/18 [address] [place] [phone] documented as of this encounter
--- OUTSIDE RECORDS SUMMARY | 2022-02-28 09:50 | XMS_ITS | Clinical Summary ---
:2000 Author Organization [employer] [facility] [place] [address] Care Team Providers Name Role Phone Chaparro [...] and a bicuspid aortic valve. Follow up [facility] Estimated Date of Delivery Comments Yes [...] 157.5 cm (5' 2) 07/26/2020 1:58 AM FINANCE LEAD Body Mass Index 35.43 07/26/2020 1:58 AM FINANCE LEAD Plan of Treatment Health Maintenance Due Date [...] Type Group BLUE CROSS BLUE CROSS OF [id number] 2015-Present [address] [place] [address] PREFERRED ONE PREFERRED ONE [id number] 2019-Present [address] [place] [address] [phone] [address] [employer] [address] (Home) [place] [address] [address]URCH Personal/Famil Mother [phone] (Home) [address] [place]ELV[place] [address] [employer] Employer 05/31/2000 [phone] [address] [employer] 4 [phone] (Home) [place] [address] [employer] Employer 04/10/1911 [phone] ATTN H [employer] [id number] [employer] (Home) [address] [place] [address] [phone] [address] (Work) [place]ETIE MELVIN [phone] Care Teams Sales And Marketing Analyst Relationship Specialty Start Date End Date Chaparro Payan PA PCP - General 09/24/[address] [place] [address] [place] [phone]
--- OUTSIDE RECORDS SUMMARY | 2022-02-28 09:50 | XMS_ITS | Encounter Summary ---
:2000 Author Organization [facility] Address [address] [place] [address] Care Team Providers Name Role Phone Chaparro Payan P.A.-C. Primary Care Provider [phone] Reason for Visit Reason Comments Missed phone Encounter Details Date Type Department Care Team Description 09/10/2021 Clinical Communication Department of Americo Bear Mis sed phone Obstetrics and M.D. Gynecology in [address] [place] [address] [place] [phone] [place], [place] [phone] (Work) [phone] Social History Tobacco Use Types Packs/Day Years [...] How often do you attend yazidism or yazdanism 1 to 4 times per [...] / REASON FOR CALL Communication (Pre-visit intake) Table Inspector: no INFORMATION DISCUSSED Patient contacted for chart [...] documented as of this encounter Care Teams Dermatologist Relationship Specialty Start Date End Date Chaparro Payan P.A.-C. PCP - General 02/05/[address] [place] [phone] documented as of this encounter
--- OUTSIDE RECORDS SUMMARY | 2022-02-28 09:50 | XMS_ITS | Encounter Summary ---
:2000 Author Organization [facility] Address [address] [place] [address] Care Team Providers Name Role Phone Chaparro Payan P.A.-C. Primary Care Provider [phone] Encounter Details Date Type Department Care Team Description 02/28/2021 Immunization Department of [facility] Reed Barillas For COVID-19 Medicine, Chandrakant Walls M.D. Vaccine Immunization Clinic, in [address] [address] [place], [place] [phone] (Work) [phone] Social History Tobacco Use Types Packs/Day Years [...] How often do you attend hoahaoism or lutheran 1 to 4 times per [...] documented as of this encounter Care Teams Campus Chaplain Relationship Specialty Start Date End Date Chaparro Payan P.A.-C. PCP - General 02/05/[address] [place] [phone] documented as of this encounter
--- OUTSIDE RECORDS SUMMARY | 2022-02-28 09:50 | XMS_ITS | Encounter Summary ---
:2000 Author Organization [facility] Address [address] [place] [address] Care Team Providers Name Role Phone Chevy, Miranda Guadalupe APRN C.N.P., M.S.N. Primary Care Pr ovider Reason for Visit Reason Comments Follow-up ER - [place] Encounter Details Date Type Department Care Team Description 10/13/2017 Office Visit Department of Family Chaparro Payan Bi cuspid Aortic Valve (HCC) (Primary Dx); Medicine, [facility], in [address] [facility] [address] [place], [place] [phone] [address] (Work) [phone] Social History Tobacco Use Types Packs/Day Years [...] How often do you attend faith or zoroastrianism 1 to 4 times per [...] 10/13/2017 12:52 PM C DT [facility] (Girls, 2-20 Years) documented in this [...] bothering her. 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 [address] [place] [address] documented as of this encounter
--- OUTSIDE RECORDS SUMMARY | 2022-02-28 09:50 | XMS_ITS | Encounter Summary ---
:2000 Author Organization [facility] Address [address] [place] [address] Care Team Providers Name Role Phone Chevy, Miranda Guadalupe APRN C.N.P., M.S.N. Primary Care Pr ovider Encounter Details Date Type Department Care Team Description 10/13/2017 Hospital Encounter Department of Radiology Amrita Payan, Pain Back in [facility] PBettieAEnoch [address] [place] [address] [place], [place] [phone] (Wo rk) Social History Tobacco Use [...] How often do you attend hinduism or rastafari 1 to 4 times per [...] documented as of this encounter Care Teams Inkjet Operator Relationship Specialty Start Date End Date Reece, Miranda Guadalupe APRN, C.N.P., PCP - General 02/04/18 M.S.N. [address] [place] [address] documented as of this encounter
--- OUTSIDE RECORDS SUMMARY | 2022-02-28 09:50 | XMS_ITS | Encounter Summary ---
:2000 Author Organization [facility] Address [address] [place] [address] Care Team Providers Name Role Phone Chaparro Payan P.A.-C. Primary Care Provider [phone] Reason for Visit Reason Onset Date Comments Outpatient COVID-19 Testing 02/28/2020 Encounter Details Date Type Department Care Team Description 02/28/2020 External Outreach Urgent Care in [place], [place] [facility] ([place] [address] [facility] [address]) DR Génesis [facility], [place] [phone] Social History Tobacco Use Types Packs/Day Years [...] How often do you attend gnosticism or anabaptist 1 to 4 times per [...] RNA, V Symptomatic (02/28/2020 12:06 PM CDT) [facility] Method Time Signature SARS-CoV-2 Swab, 02/29/2020 [facility] [...] is performed using the Aptima SARS-CoV-2 assay ([employer] which has received Emergency Use Authori zation (EUA) by the U.S. Food and Drug Administration. Fact sheets for this Emergency Use Autho rization (EUA) assay can be found at the following links: For Healthcare Providers: https://www.fd a.gov/media/701642/download For Patients: https://www.fda.gov/media/ 379798/download Specimen Anatomical Collection Method Collection Time Receive d Time (Source) Location / / Volume Laterality Varies 02/28/2020 12:06 02/28/2020 7:35 (Nasopharynx) PM CDT PM CDT Kee Kemp P.A.-C. LAB MICROBIOLOGY - GENERAL O JIMMY Performing Organization Address City/State/ZIP Code Phon e Number [facility] [place] [address] [place] [address] System in [place] [address] [place] [address] documented in this encounter Visit Diagnoses Diagnosis Infection Upper Respiratory - Primary documented in this encounter Additional Health Concerns Infection Onset Date Last Indicated Resolved Time COVID19 Pending 02/28/2020 02/28/2020 02/29/2020 4:25 AM CDT Assessment Noted Time PHQ-9 Depression Total Score: 8 10/13/2017 12:58 PM CD T documented as of this encounter Care Teams Logistic Manager Relationship Specialty Start Date End Date Chaparro Payan P.A.-C. PCP - General 02/05/18 [address] [place] [address] documented as of this encounter
--- OUTSIDE RECORDS SUMMARY | 2022-02-28 09:50 | XMS_ITS | Encounter Summary ---
:2000 Author Organization [facility] Address [address] [place] [address] Care Team Providers Name Role Phone Chaparro Payan P.A.-C. Primary Care Provider [phone] Encounter Details Date Type Department Care Team Description 08/25/2021 Orders Only Department of Mónica Noe High Risk Obstetrics and J, R.N. (Primary Dx) Gynecology in [address] [place] [address] [place] [address] [place], [place] [phone] (Work) [phone] Social History Tobacco Use Types Packs/Day Years [...] How often do you attend denominational or adventism 1 to 4 times per [...] OR GROWTH ABEL Exam Site: [facility] Plurality: 1 OBHx: [G:(1)] ?F [...] Read by Wing Willett on 8:30:37 AM. Commercial Crabber: ??Wing Willett Thank You For This Referral Procedure Note Yvonne Sanchez M.D. - 09/16/2021Forma tting of this note might be different from the original. CITLALY HOLLAND OB Exam, 09/16/2021 EXAM INFORMATION Patient Name: CITLALY HOLLAND : 2000 Age: 20 yrs Sex: Female Ref Phys: AMERICO BEAR Exam Date: 09/16/2021 Procedure: US OB FOLLOW-UP AND OR GROWTH ABEL Exam Site: [facility] Plurality: 1 OBHx: [G:(1)] F [...] Read by Wing Willett on 8:30:37 AM. Commercial Crabber: Wing Willett Thank You For This Referral Americo Bear M.D. IMG OB US PROCEDURES documented in this encounter Visit Diagnoses Diagnosis High Risk (HCC) - Primary High Risk (HCC) documented in this encounter Additional Health Concerns Assessment Noted Time PHQ-9 Depression Total Score: 8 10/13/2017 12:58 PM CD T documented as of this encounter Care Teams Cisco Engineer Relationship Specialty Start Date End Date Chaparro Payan P.A.-C. PCP - General 02/05/[address] [place] [phone] documented as of this encounter
--- OUTSIDE RECORDS SUMMARY | 2022-02-28 09:50 | XMS_ITS | Encounter Summary ---
:2000 Author Organization [facility] Address [address] [place] [address] Care Team Providers Name Role Phone Chaparro Payan P.A.-C. Primary Care Provider [phone] Reason for Referral Specialty Diagnoses / Procedures Referred By Contact Refer red To Contact Chaparro Payan P. A.-C. [facility] [address] [place] [address] Referral ID Status Reason Start Date Expiration Date Visits Requ ested Visits Authorized ETING UNDERWRITER Encounter Details Date Type Department Care Team Description 07/30/2021 Orders Only [facility] Chaparro Payan P.A.-C. [address] [place] [phone] (Wo rk) Social History Tobacco [...] How often do you attend christianity or pentecostal 1 to 4 times per year 08/02/2020 [...] documented as of this encounter Care Teams Shrimp Peeling Machine Operator Relationship Specialty Start Date End Date Chaparro Payan P.A.-C. PCP - General 02/05/[address] [place] [phone] documented as of this encounter
--- OUTSIDE RECORDS SUMMARY | 2022-02-28 09:50 | XMS_ITS | Clinical Summary ---
:2000 Author Organization [facility] Address [address] [place] [address] Care Team Providers Name Role Phone Chaparro Payan P.A.-C. Primary Care Provider [phone] Source Comments Patient records contain information from all sites at [facility]. For routine questions regarding patient records, call [phone] during business hours, M-F 8:00 AM - 5:00 PM Central Time. Record requests for emergency care only can be directed to [phone] at any time.[facility] Allergies Active Allergy Reactions Severity Noted Date Comments Penicillins Rash 12/19/2007 Medications Medication Sig Dispensed Refills Start Date End Date Status ibuprofen Take 800 mg by 0 Activ e (ADVIL,MOTRIN) 200 mg mouth. tablet albuterol 90 Inhale 2 puffs as 0 09/03/2021 Active mcg/actuation inhaler needed. Take 1 tablet by 0 Act navarro bbotivz-Sf-jpbe-FA mouth daily. (VINATE ONE) 60 mg iron-1 mg per tablet Active Problems Patient Care Coordination Note Formatting of this note might be differe nt from the original. Spouse: no Children: no Work: no AYAZ on file for mom Amy ([phone]) Problem Noted Date Overweight Body Mass Index [...] How often do you attend gnosticist or yarsani 1 to 4 times per [...] CDT Respiratory Rate 16 08/02/2020 2:23 PM GEOTHERMAL FIELD TECHNICIAN Oxygen Saturation 100% 09/16/2021 8:36 AM CDT [...] Address T ype Group Dates PREFERREDONE PREFERREDONE [id number] 2019-Pre [phone] [address]OX PPO ADMINISTRATIVE ADMINISTRATIVE sent [phone] [place] [phone] Care Teams Timing Inspector Relationship Specialty Start Date End Date Chaparro Payan P.A.-C. PCP - General 02/05/18 [address] [place] [phone]
--- OUTSIDE RECORDS SUMMARY | 2022-02-28 09:50 | XMS_ITS | Encounter Summary ---
:2000 Author Organization [facility] Address [address] [place] [address] Care Team Providers Name Role Phone Chaparro Payan P.A.-C. Primary Care Provider [phone] Reason for Referral Outpatient (Routine) - Closed Specialty Diagnoses / Procedures Referred By Contact Refer red To Contact Diagnoses Bicuspid Aortic Valve (HCC) Americo Bear M.D. [facility] Procedures Echo Transthoracic (TTE) - Adult Congenital [address] [place], [place] [address] Referral ID Status Reason Start Date Expiration Date Visits Requ ested Visits Authorized [id number] Closed 09/11/2021 09/11/2022 1 1 Reason for Visit Outpatient (Routine) - Closed Specialty Diagnoses / Procedures Referred By Contact Refer red To Contact Diagnoses Bicuspid Aortic Valve (HCC) Americo Bear M.D. [facility] Procedures Echo Transthoracic (TTE) - Adult Congenital [address] [place], [place] [address] Referral ID Status Reason Start Date Expiration Date Visits Requ ested Visits Authorized [id number] Closed 09/11/2021 09/11/2022 1 1 Encounter Details Date Type Department Care Team Description 09/16/2021 Hospital Encounter Department of Americo Bear Bicuspi d Aortic Cardiovascular Diseases Silvio Valve (HCC) in [facility] marya [address] [facility] [address] [place] [phone] Social History Tobacco Use Types Packs/Day Years [...] How often do you attend judaism or anabaptism 1 to 4 times per [...] mg tablet Take 1 tablet by 0 yanyveo-Cj-ghwk-FA (VINATE mouth daily. ONE) 60 mg iron-1 [...] COLOR AND DOPPLER (09/16/2021 1:54 PM CDT) [facility] Method Time Signature Ejection Fraction [...] For the complete report, see the Order-L Moveline Documents. Final Impressions 1. Bicuspid aortic valve [...] documented as of this encounter Care Teams Master Craftsman Relationship Specialty Start Date End Date Chaparro Payan P.A.-C. PCP - General 02/05/[address] [place] [phone] documented as of this encounter
--- OUTSIDE RECORDS SUMMARY | 2022-02-28 09:51 | XMS_ITS | Encounter Summary ---
:2000 Author Organization [facility] Address [address] [place] [address] Care Team Providers Name Role Phone Chaparro Payan P.A.-C. Primary Care Provider [phone] Reason for Referral Outpatient (Routine) - Closed Specialty Diagnoses / Procedures Referred By Contact Refer red To Contact Diagnoses Bicuspid Aortic Valve (HCC) Fatigue Phyllis Ramírez M.D. [facility] [place] [facility] Procedures ECG 12 Lead [place] EKG 12 LEAD TRACE ONLY [place] EKG I&R ONLY 200 [facility] [place] [address] Referral ID Status Reason Start Date Expiration Date Visits Requ ested Visits Authorized [id number] Closed 09/03/2017 03/02/2018 1 1 Outpatient (Routine) - Closed Specialty Diagnoses / Procedures Referred By Contact Refer red To Contact Diagnoses Bicuspid Aortic Valve (HCC) Fatigue par review Phyllis Ramírez M.D. [facility] [place] [facility] Procedures Echo Transthoracic (TTE) [place] ECHO TTE 2D W DPLR COMPLETE CVD ECHO [address] [place] [address] Referral ID Status Reason Start Date Expiration Date Visits Requ ested Visits Authorized [id number] Closed 09/03/2017 03/02/2018 1 1 Reason for Visit Reason Comments Annual Exam Encounter Details Date Type Department Care Team Description 09/03/2017 Comprehensive Visit Department of [place], Phyllis Well A dult Examination Abnormal (Primary Dx); Family MedicineMaggy M.D. Overweight Body Mass Index 25-29.9 Adult ; [facility], 200 [facility] Bicuspid Aortic Valve (HCC); in [place], [place] Constipation Slow Transit; [place] [address] Dysmenorrhea; [address] [facility] AV [phone] Management Contraceptive; [place], [place] (Work) Fatigue; [phone] Screening Examination For [...] 08/02/2020 relatives? How often do you attend anabaptism or adventist 1 to 4 times per year 08/02/2020 services? Do you belong to any clubs or organizations such No 08/02/2020 as anabaptism groups, unions, fraternal or athletic groups, or [...] % 09/03/2017 10:25 AM CDT Growth Chart: [facility] (Girls, 2-20 Years) documented in this [...] ECHO DOPPLER COLOR (11/02/2017 8:41 AM CDT) [facility] Method Time Signature Ejection Fraction 59 MC [...] Method Time Signature Source URINE, FIRST 09/06/2017 [facility] VOID 12:11 PM CDT [facility] Chlamydia Negative Negative 09/06/2017 [facility] trachomatis 12:11 PM CDT [facility] Comment: ----ADDITIONAL INFORMATION---- This report [...] - GENERAL O RDERABLES Performing Organization Address City/[facility]/ZIP Code Phon e Number [facility] [address] [place] [address] LAB ECG 12 Lead (09/03/2017 11:16 AM CDT) P athologist Signature Ventricular Rate 77 BPM MUSE ECG/Min [place] Interval 136 ms MUSE QRSD Interval 80 ms MUSE QT Interval 330 ms MUSE QTC Interval 373 ms MUSE P [place] 31 degrees MUSE R [place] 7 degrees MUSE T Wave [place] 31 degrees MUSE Specimen Anatomical Collection Method Collection Time Receive d Time (Source) Location / / Volume Laterality 09/03/2017 11:16 09/03/2017 AM CDT 11:42 AM CDT Impressions MUSE - 09/03/2017 11:42 AM CDT Normal sinus rhythm Nonspecific ST abnormality No previous ECGs available Narrative This result has an attachment that is no t available. Phyllis Ramírez M.D. ECG ORDERABLES Performing Organization Address City/[facility]/ZIP Code Phon e Number MUSE MUSE NA S-TSH (Thyroid-Stimulating Hormone - Sensitive) (09/03/2017 11:08 AM CDT) P athologist Signature TSH, Sensitive 1.4 0.5 - 4.3 09/03/2017 [facility] mIU/L 1:46 PM CDT [facility] [place] Comment: Biotin has been identified by the jose matthews as a potential interfering substance. ??Higher concentr ations of biotin may be found in multivitamins, hair/nail supple ments, and workout supplements. ??If the result does not ma [facility] clinical observations, repeat testing after patient refrains fr om the use of supplements for at least 12 hours. Specimen Anatomical Collection Method Collection Time Receive d Time (Source) Location / / Volume Laterality Blood (Blood, 09/03/2017 11:08 09/03/2017 1:09 Venous) AM CDT PM CDT Phylils Ramírez M.D. LAB BLOOD ADD-ON Performing Organization Address City/State/ZIP Code Phon e Number [facility] [address] [place] [address] LAB (ABNORMAL) Lipid Panel (09/03/2017 11:08 AM CDT) athologist Signature Cholesterol, 205 (H) mg/dL 09/03/2017 [facility] Total 1:46 PM CDT [facility] [place] [facility] Comment: ----REFERENCE VALUE---- Desirable: < 200 Borderline high: 200 - 239 High: > or = 240 Triglycerides 206 (H) mg/dL 09/03/2017 1:46 PM CDT [facility] [place] [facility] Comment: ----REFERENCE VALUE---- Normal: <150 Borderline high: 150-199 High: 200-499 Very high: > or =500 Cholesterol, HDL, S 50 >=50 mg/dL 09/03/2017 1:46 PM CDT [facility] [place] [facility] Calculated LDL 114 mg/dL 09/03/2017 1:46 PM CDT [facility] [place] [facility] Comment: ----REFERENCE VALUE---- Desirable: <100 Above Desirable: 100-129 Borderline high: 130-159 High: 160-189 Very high: > or =190 Cholesterol, Non-HDL, 155 mg/dL 09/03/2017 1:46 PM CDT [facility] [place] [facility] Comment: ----REFERENCE VALUE---- Desirable: <130 Above Desirable: 130-159 Borderline high: 160-189 High: 190-219 Very high: > or =220 Specimen Anatomical Collection Method Collection Time Receive d Time (Source) Location / / Volume Laterality Blood (Blood, 09/03/2017 11:08 09/03/2017 1:09 Venous) AM CDT PM CDT Phyllis Ramírez M.D. LAB BLOOD ADD-ON Performing Organization Address City/[facility]/ZIP Code Phon e Number [facility] [place] [address] [place] [address] LAB AST (Aspartate Aminotransferase) (09/03/2017 11:08 AM CDT) Patholo gist Method Time Signature Aspartate 16 8 - 43 09/03/2017 [facility] Aminotransferase U/L 1:46 PM CDT [facility] Specimen Anatomical Collection Method Collection Time Receive d Time (Source) Location / / Volume Laterality Blood (Blood, 09/03/2017 11:08 09/03/2017 1:09 Venous) AM CDT PM CDT Phyllis Ramírez M.D. LAB BLOOD ADD-ON Performing Organization Address City/[facility]/ZIP Code Phon e Number [facility] [place] [address] [place] [address] LAB (ABNORMAL) BMP (Basic Metabolic Panel) (09/03/2017 11:08 AM CDT) Analysis Performed At Path logist Time Signature Potassium, S 4.1 3.6 - 5.2 09/03/2017 [facility] mmol/L 1:46 PM CDT [facility] Sodium, S 142 135 - 145 09/03/2017 [facility] mmol/L 1:46 PM CDT [facility] [place] [facility] Chloride, S 101 98 - 107 09/03/2017 [facility] mmol/L 1:46 PM CDT [facility] [place] [facility] Bicarbonate, S 30 (H) 22 - 29 09/03/2017 [facility] mmol/L 1:46 PM CDT [facility] Anion Gap 11 7 - 15 09/03/2017 [facility] 1:[address] [facility] BUN (Blood Urea 8 6 - 21 09/03/2017 [facility] Nitrogen), S mg/dL 1:46 PM CDT [facility] [place] [facility] Creatinine 0.56 (L) 0.59 - 09/03/2017 [facility] 1.04 mg/dL 1:[address] [facility] eGFR-Non >90 >=60 09/03/2017 [facility] Black/ mL/min/BSA 1:46 PM CDT [facility] [place] [facility] Comment: ----ADDITIONAL INFORMATION---- Estimated GFR calculated using the 2009 CKD_EPI creatinine equation. eGFR-Black/ >90 >=60 mL/min/BSA 2017 1:[address] [facility] Comment: ----ADDITIONAL INFORMATION---- Estimated GFR calculated using the 2009 CKD_EPI creatinine equation. Calcium, Total, S 9.6 9.1 - 10.3 mg/dL 09/03/2017 1 :46 PM CDT [facility] Glucose, S 80 70 - 140 mg/dL 09/03/2017 1:46 PM CDT [facility] Specimen Anatomical Collection Method Collection Time Receive d Time (Source) Location / / Volume Laterality Blood (Blood, 09/03/2017 11:08 09/03/2017 1:09 Venous) AM CDT PM CDT Phyllis Ramírez M.D. LAB BLOOD ADD-ON Performing Organization Address City/State/ZIP Code Phon e Number [facility] [address], [place] [address] LAB CBC with Differential (09/03/2017 11:08 AM CDT) P athologist Signature Hemoglobin 13.6 11.6 - 09/03/2017 [facility] 15.0 g/dL 11:[address] [facility] Hematocrit 40.7 35.5 - 09/03/2017 [facility] 44.9 % 11:[address] [facility] Erythrocytes 4.60 3.92 - 09/03/2017 [facility] 5.13 11:36 AM CDT [facility] x[facility](12)/[facility] MCV 88.5 78.2 - 09/03/2017 [facility] 97.9 fL 11:[address] [facility] RBC Distrib Width 13.2 12.2 - 09/03/2017 [facility] 16.1 % 11:36 AM CDT [facility] [place] [facility] Platelet Count 307 157 - 371 09/03/2017 [facility] x10(9)/L 11:[address] [facility] Leukocytes 8.7 3.4 - 9.6 09/03/2017 [facility] x10(9)/L 11:[address] [facility] [place] [facility] Neutrophils 5.74 1.56 - 09/03/2017 [facility] 6.45 11:36 AM CDT HEALTH x10(9)/L SYSTEM- [place] [facility] Lymphocytes 2.36 0.95 - 09/03/2017 [facility] 3.07 11:36 AM CDT HEALTH x10(9)/L SYSTEM- [place] [facility] Monocytes 0.48 0.26 - 09/03/2017 [facility] 0.81 11:36 AM CDT HEALTH x10(9)/L SYSTEM- [place] [facility] Eosinophils 0.08 0.03 - 09/03/2017 [facility] 0.48 11:36 AM CDT HEALTH x10(9)/L SYSTEM- [place] [facility] Basophils 0.01 0.01 - 09/03/2017 [facility] 0.08 11:36 AM CDT HEALTH x10(9)/L SYSTEM- [place] [facility] Specimen Anatomical Collection Method Collection Time Receive d Time (Source) Location / / Volume Laterality Blood (Blood, 09/03/2017 11:08 09/03/2017 Venous) AM CDT 11:08 AM CDT Phyllis Ramírez M.D. LAB BLOOD ADD-ON Performing Organization Address City/State/ZIP Code Phon e Number [facility] [address] [place] [address] [place] [facility]- [address] [place], [place] [address] [place] [address] [place] [facility] documented in this encounter Visit Diagnoses Diagnosis Well Adult Examination Abnormal - Primar y Overweight Body Mass Index 25-29.9 Adult Bicuspid Aortic Valve (HCC) Constipation Slow Transit Dysmenorrhea Management Contraceptive Fatigue Screening Examination For Chlamydial Dis ease Screening Lipid Bicuspid Aortic Valve (HCC) Fatigue documented in this encounter Care Teams Dean Of Students Relationship Specialty Start Date End Date Chaparro Payan P.A.-C. PCP - General 02/05/[address] [place] [phone] documented as of this encounter
--- OUTSIDE RECORDS SUMMARY | 2022-02-28 09:51 | XMS_ITS | Encounter Summary ---
:2000 Author Organization [facility] Address [address] [place] [address] Care Team Providers Name Role Phone Unavailable Primary Care Provider Unavailable Encounter Details Date Type Department Care Team Description 04/17/2011 Hospital Encounter HX [facility] FBKF FAMILYPRA Norman Payan P.A.-C. [address] [place] [address] (Wo rk) Social History Tobacco [...] How often do you attend restorationist or denominational 1 to 4 times per [...] (97 lb 7.1 oz) 04/17/2011 3:56 PM APPLICATION INTEGRATION ENGINEER Height 149.2 cm (4' 10.74) 04/17/2011 3:56 PM APPLICATION INTEGRATION ENGINEER Body Mass Index 19.86 04/17/2011 3:56 PM APPLICATION INTEGRATION ENGINEER Body Mass Index Percentile 69.40 % 04/17/2011 3:56 PM CS T Growth Chart: [facility] (Girls, 2-20 Years) documented in this encounter Progress Notes Mikael Payan P.A.-C. - 04/17/2011 12:00 AM CST [id number] CHIEF COMPLAINT/ REASON FOR VISIT Sport's history [...] recommend that she follow up with an delivery motorcycle driver for further evaluation and treatment of this and otherwise she may participate in sports without any restrictions. If there are any questions or problems she will let us know, otherwise follow up as needed. TLR/kln Signed [facility] Electronically Signed By: MIKAEL PAYAN PA-C On: 04/20/2011 01:49 PM Source: [facility] MHSDOLBEYNONRADSYS Document Id: [id number] ICATION INTEGRATION ENGINEER documented in this encounter Procedure Notes Conversion, Historical Provider Ser - 04/17/2011 4:36 PM CST Vision Testing Vision Testing Entered On: 04/17/2011 16:36 APPLICATION INTEGRATION ENGINEER Performed On: 04/17/2011 16:36 APPLICATION INTEGRATION ENGINEER by VIVIAN PEDERSEN LPN Vision Testing Corrective Lenses : None Eye, Right w/o Correction : 20/50 Eye, Left w/o Correction : 20/70 NUVIALACHO CroweSesar Castrejon LPN - 04/17/2011 16:36 APPLICATION INTEGRATION ENGINEER [facility] Document Id: [id number] APPLICATION INTEGRATION ENGINEER!5 documented in this encounter Miscellaneous Notes Miscellaneous - Mikael Payan P.A.-C. - 04/17/2011 4:28 PM CST Ambulatory Patient Summary [address] [address] Visit Information Name: CITLALY HOLLAND Current Date: [...] No Appointments found Your Goals/Additional instructions: [facility] Document Id: [id number] ICATION INTEGRATION ENGINEER Miscellaneous - Mikael Payan P.A.-C. - 04/17/2011 4:28 PM CST Ambulatory Depart Summary [address] [address] Visit Information Name: CITLALY HOLLAND Current Date: [...] for Pain / Fever Additional Information: Source: [facility] POWERCHART Document Id: [id number] ICATION INTEGRATION ENGINEER Miscellaneous - Conversion, Historical Provider Ser - 04/17/2011 3:56 PM APPLICATION INTEGRATION ENGINEER Pediatric Telephone Diaphragm Assembler Intake/History Pediatric Telephone Diaphragm Assembler Intake/History Entered On: 04/17/2011 15:59 APPLICATION INTEGRATION ENGINEER Performed On: 04/17/2011 15:56 APPLICATION INTEGRATION ENGINEER by VIVIAN PEDERSEN LPN Intake Peripheral Pulse Rate : 84/min Respiratory Rate : 20/min Systolic Blood Pressure : 106mmHg Diastolic Blood Pressure : 52mmHg NIBP Mean : 70mmHg BP Location : Right upper extremity Heart Rhythm : Regular VIVIAN PEDERSEN LPN - 04/17/2011 15:59 APPLICATION INTEGRATION ENGINEER Chief Complaint : Sports physical Ambulatory Intake Additional Information : Arm span:145 cm Temperature Oral : 36.7C(Converted to: 98.1DegF) Height : 149.2cm(Converted to: 4ft 11inch(es), 58.74inch(es)) Actual Weight : 44.2kg(Converted to: 97lb 7oz) Weight Source : Standing scale Dosing Weight Clinic : 44.20kg Clinic BSA : 1.35 Body Mass Index : 19.86kg/m2 VIVIAN PEDERSEN [facility] - 04/17/2011 15:56 APPLICATION INTEGRATION ENGINEER Subjective Pain Symptoms : No VIVIAN PEDERSEN HARDWARE ENGINEER - 04/17/2011 15:56 APPLICATION INTEGRATION ENGINEER Dependent Habits Tobacco Use/Currently Using : No Tobacco Use/Last 12 months : No Smoking Status : Never smoker Alcohol Use : No VIVIAN PEDERSEN [facility] - 04/17/2011 15:56 APPLICATION INTEGRATION ENGINEER Caffeine Use Grid Caffeine Use : Current Type : Chocolate, Soft drinks Frequency : Monthly Amount : 2 times per month Last Use : today VIVIAN PEDERSEN [facility] 04/17/2011 15:56 APPLICATION INTEGRATION ENGINEER Recreational Drug Use Grid Drug Use : None VIVIAN PEDERSEN [facility] 04/17/2011 15:56 APPLICATION INTEGRATION ENGINEER Allergy Allergies (Active) penicillin Estimated Onset Date: Unspecified ; Created By: CHARO TENORIO; Reaction Status: Active ; Category: Drug ; Substance: penicillin ; Type: Allergy ; Severity: Mild ; Updated By: CHARO TENORIO; Source: Family ; Reviewed Date: 04/17/2011 15:52 APPLICATION INTEGRATION ENGINEER Source: [facility] POWERCHART Document Id: [id number] APPLICATION INTEGRATION ENGINEER!9 documented in this encounter Plan of Treatment Not on filedocumented as of this encounter Visit Diagnoses Not on filedocumented in this encounter
--- OUTSIDE RECORDS SUMMARY | 2022-02-28 09:51 | XMS_ITS | Encounter Summary ---
:2000 Author Organization [facility] Address [address] [place] [address] Care Team Providers Name Role Phone Unavailable Primary Care Provider Unavailable Encounter Details Date Type Department Care Team Description 02/18/2011 Hospital Encounter HX [facility] FBKF FAMILYPRA Elmo Kitchen, BEL, C.N.P., D. N.P. [address] [place], [place] [address] (Wo rk) Social History [...] How often do you attend buddhist or holiness 1 to 4 times per year 08/02/2020 [...]
--- OUTSIDE RECORDS SUMMARY | 2022-02-28 09:51 | XMS_ITS | Encounter Summary ---
:2000 Author Organization [facility] Address [address] [place] [address] Care Team Providers Name Role Phone Unavailable Primary Care Provider Unavailable Encounter Details Date Type Department Care Team Description 01/26/2013 Hospital Encounter HX [facility] FBKF FAMILYPRA Elmo Kitchen, BEL, C.N.P., D. N.P. [address] [place], [place] [address] (Wo rk) Social History [...] How often do you attend catholic or mandaeism 1 to 4 times per [...] % 01/26/2013 10:42 AM CDT Growth Chart: [facility] (Girls, 2-20 Years) documented in this encounter H&P Notes Lisa Kitchen APRN, C.N.P. - 01/26/2013 10:25 AM CDT [id number] CHIEF COMPLAINT/REASON FOR VISIT Well-child exam and sports physical. HISTORY OF PRESENT ILLNESS The patient is a 12-year-old female who presents for her 12-year-old well-child exam. Patient was last seen by me for her 10-year-old well-child exam. Patient lives at home with her mom, dad, one brother, one sister and one cousin. She does speak Occitan in their home. Patient does wear glasses [...] ALLERGIES See EMR. SYSTEMS REVIEW Please see [facility] 11 to 14-year-old clinic visit sheet scanned into EMR for complete details. PAST MEDICAL/SURGICAL HISTORY Unchanged see EMR. SOCIAL HISTORY Patient lives at home with her mom, dad, brother, one sister and cousin. Denies tobacco, alcohol anddrug use. Patient is not sexually active. FAMILY HISTORY Unchanged see EMR. VITAL SIGNS See EMR. PHYSICAL EXAMINATION Please see scanned-in [facility] 11 to 14-year-old clinic visit sheet and [id number] sports qualifying physical examination clearance form as [...] CRANDALL CNP On: 02/13/2013 08:43 AM Source: [facility] MHSDOLBEYNONRADSYS Document Id: [id number] documented in this encounter Procedure Notes Conversion, [...] CDT KIRSTEN HUYNH - 01/26/2013 11:23 CDT KIRSTNE HUYNH 01/26/2013 11:23 CDT Source: [employer] Document Id: [id number] CDT!5 Conversion, Historical Provider Ser - 01/26/2013 [...] KIRSTEN HUYNH - 01/26/2013 11:39 CDT Source: [employer] Document Id: [id number] CDT!5 documented in this encounter Miscellaneous Notes Miscellaneous - Lisa Kitchen APRN, CBettieN.PBettie - 01/26/2013 5:17 PM CDT Ambulatory Patient Summary [address] [address] Visit Information Name: CITLALY HOLLAND [facility] Number: [id number] Current Date: 01/26/2013 17:17:31 [...] No Appointments found Your Goals/Additional instructions: [facility] Document Id: [id number] Miscellaneous - Lisa Kitchen APRN, C.N.P. - 01/26/2013 5:17 PM CDT Ambulatory Depart Summary [address] [address] Visit Information Name: CITLALY HOLLAND [facility] Number: [id number] Visit Date: 01/26/2013 17:17:30 Attending Provider: ILSA CRANDALL CNP Primary Care Provider: LISA CRANDALL [...] your provider for clarification. Additional Information: Source: [facility] Document Id: [id number] Miscellaneous - Conversion, Historical Provider Ser - 01/26/2013 10:42 AM CDT Pediatric Waste Management Engineer Intake/History Pediatric Waste Management Engineer Intake/History Entered On: 01/26/2013 10:43 CDT Performed [...] Information Given By : Patient Languages : Sinhala KIRSTEN HUYNH - 01/26/2013 10:42 CDT Subjective [...] None KIRSTEN HUYNH 01/26/2013 10:42 CDT Source: [facility] POWERCHART Document Id: [id number] CDT!40 documented in this encounter Plan of Treatment Not on filedocumented as of this encounter Visit Diagnoses Not on filedocumented in this encounter
--- OUTSIDE RECORDS SUMMARY | 2022-02-28 09:51 | XMS_ITS | Encounter Summary ---
:2000 Author Organization [facility] Address [address] [place] [address] Care Team Providers Name Role Phone Unavailable Primary Care Provider Unavailable Encounter Details Date Type Department Care Team Description 04/30/2015 Hospital Encounter HX NO MAPPING Miranda Reece APRN, C.N.P., M. S.N. [address] [place], [place] [phone] (Wo rk) Social History [...] How often do you attend mosque or christianity 1 to 4 times per year 08/02/2020 [...] Historical Provider Ser - 04/30/2015 11:59 PM BIG MACHINE CONSULTANT Coding Summary-Paper Based CODING DATE: 05/13/2015 FINAL [facility] STATUS: * Discharged to Home or Self [...] HOLLY Date Saved: 05/13/2015 10:25 am [facility] Document Id: [id number] documented in this encounter Plan of Treatment Not on filedocumented as of this encounter Visit Diagnoses Not on filedocumented in this encounter
--- OUTSIDE RECORDS SUMMARY | 2022-02-28 09:51 | XMS_ITS | Encounter Summary ---
:2000 Author Organization [facility] Address [address] [place] [address] Care Team Providers Name Role Phone Chaparro Payan P.A.-C. Primary Care Provider [phone] Encounter Details Date Type Department Care [...] How often do you attend presybeterian or roman catholic 1 to 4 times [...] no amblyopia CDM Reports - EYEGEN Id: [id number] Status: Fnl documented in this encounter Plan of Treatment Not on filedocumented as of this encounter Visit Diagnoses Not on filedocumented in this encounter Additional Health Concerns Infection Onset Date Last Indicated Resolved Time COVID19 Pending 02/28/2020 02/28/2020 02/29/2020 4:25 AM CDT COVID19 Pending 03/27/2020 03/28/2020 03/29/2020 10:23 PM CDT COVID19 Pending 06/23/2020 06/23/2020 06/24/2020 2:18 PM POLICE INVESTIGATOR COVID19 Pending 07/12/2020 07/12/2020 07/13/2020 1:56 AM POLICE INVESTIGATOR documented as of this encounter Care Teams Behavioral Analyst Relationship Specialty Start Date End Date Chaparro Payan P.A.-C. PCP - General 02/05/[address] [place] [phone] documented as of this encounter
--- OUTSIDE RECORDS SUMMARY | 2022-02-28 09:51 | XMS_ITS | Encounter Summary ---
:2000 Author Organization [facility] Address [address] [place] [address] Care Team Providers Name Role Phone Unavailable Primary Care Provider Unavailable Encounter Details Date Type Department Care Team Description 04/30/2015 Hospital Encounter HX [facility] FBKF FAMILYPRA Miranda Reece APRN, C.N.P., M.S.N. [address] [place] [address] (Wo rk) Social History Tobacco Use Types [...] How often do you attend hinduism or restorationist 1 to 4 times per [...] (131 lb 2.8 oz) 04/30/2015 3:28 PM [employer] Height 158 cm (5' 2.21) 04/30/2015 3:28 PM [employer] Body Mass Index 23.83 04/30/2015 3:28 PM [employer] Body Mass Index Percentile 79.89 % 04/30/2015 3:28 PM CS T Growth Chart: [facility] (Girls, 2-20 Years) documented in this encounter H&P Notes Chevy, Miranda Guadalupe, BEL, TIFFANIE - 04/30/2015 3:19 PM CST [id number] CHIEF COMPLAINT/REASON FOR VISIT Annual physical. HISTORY [...] Jansen -C./francesca Electronically Signed By: MIRANDA REECE [facility] On: 05/21/2015 02:28 PM Source: [facility] MHSDOLBEYNONRADSYS Document Id: [id number] [employer] documented in this encounter Miscellaneous Notes Miscellaneous - Triston Mccormick, L.P.N. - 04/30/2015 3:32 PM CST PHQ-9 - Teens PHQ-9 - Teens Entered On: 04/30/2015 15:33 [employer] Performed On: 04/30/2015 15:32 [employer] by TRISTON MCCORMICK LPN PHQ-9 - Teens [...] No TRISTON MCCORMICK LPN - 04/30/2015 15:32 [employer] Source: [email or web address] Document Id: [id number] [employer]!16 [employer] Miscellaneous - Triston Mccormick L.P.N. - 04/30/2015 3:28 PM CST Pediatric Gore Seamer Intake/History Pediatric Gore Seamer Intake/History Entered On: 04/30/2015 15:31 [employer] Performed On: 04/30/2015 15:28 [employer] by TRISTON MCCORMICK LPN Intake Chief Complaint [...] kg/m2 TRISTON MCCORMICK LPN - 04/30/2015 15:28 [employer] General Info Accompanied By : Mother, Sibling Information Given By : Patient Languages : Nepali, Maltese Is Patient Female and 13-50 no hysterectomy : Yes Status : Patient denies Are you ? : No TRISTON MCCORMICK LPN - 04/30/2015 15:28 [employer] Subjective Pain Symptoms : No TRISTON MCCORMICK LPN - 04/30/2015 15:28 [employer] Dependent Habits Exposure to Tobacco Smoke : Care provider denies smoking in home Smoking Status : Never smoker Tobacco 2A : No Alcohol Use : No TRISTON MCCORMICK LPN - 04/30/2015 15:28 [employer] Caffeine Use Grid Caffeine Use : Current Type : Chocolate, Soft drinks Frequency : Weekly Amount : 2 times per month Last Use : 04/30/15 TRISTON MCCORMICK LPN - 04/30/2015 15:28 [employer] Recreational Drug Use Grid Drug Use : None TRISTON MCCORMICK LPN - 04/30/2015 15:28 [employer] Source: [facility] [employer] Document Id: [id number] [employer]!42 [employer] documented in this encounter Plan of Treatment Not on filedocumented as of this encounter Procedures Procedure Name Priority Date/Time Associated Comments Diagnosis CHLAMYDIA/GONORRHOEAE Routine 04/30/2015 3:30 PM Results for this AMPLIFIED RNA [employer] procedure are in the results section. CHLAMYDIA TRACHOMATIS Routine 04/30/2015 3:30 PM Results for this AMPLIFIED RNA [employer] procedure are in the results section. documented in this encounter Results Chlamydia / Gonorrhoeae Amplified RNA (04/30/2015 3:30 PM [employer]) Component Value Ref Test Analysis Performed At [facility] Range Method Time Signature HX GC by Nucleic POWERCHART Acid Amplification HXFinal Negative for POWERCHART Neisseria gonorrhea by RNA amplification . HXFinal Reference: POWERCHART Negative HXFinal If you POWERCHART submitted a female urine sample, please note it is a Laboratory Developed Test. Specimen (Source) Anatomical Collection Method Collection Time Re ceived Time Location / / Volume Laterality Urine 04/30/2015 3:30 PM [employer] Miranda Reece APRN, C.N.P., M.S.N. LAB MICROB IOLOGY - GENERAL ORDERABLES Performing Organization Address City/State/ZIP Code Phon e Number POWERCHART Chlamydia Trachomatis Amplified RNA (04/30/2015 3:30 PM [employer]) Component Value Ref Test Analysis Performed At [facility] Range Method Time Signature HXChlamydia by POWERCHART Nucleic Acid Amplification HXFinal Negative for POWERCHART Chlamydia trachomatis by RNA amplification. HXFinal Reference: POWERCHART Negative HXFinal If you POWERCHART submitted a female urine sample, please note it is a Laboratory Developed Test. Specimen (Source) Anatomical Collection Method Collection Time Re ceived Time Location / / Volume Laterality Urine 04/30/2015 3:30 PM [employer] Miranda Reece APRN, C.N.P., M.S.N. LAB MICROB IOLOGY - GENERAL ORDERABLES Performing Organization Address City/State/ZIP Code Phon e Number POWERCHART documented in this encounter Visit Diagnoses Not on filedocumented in this encounter
--- OUTSIDE RECORDS SUMMARY | 2022-02-28 09:51 | XMS_ITS | Encounter Summary ---
:2000 Author Organization [facility] Address [address] [place] [address] Care Team Providers Name Role Phone Unavailable Primary Care Provider Unavailable Encounter Details Date Type Department Care Team Description 10/09/2016 Hospital Encounter HX NO MAPPING Casper Payan P.A.-C. [address] [place] [address] (Wo rk) Social History Tobacco Use [...] 08/02/2020 relatives? How often do you attend temple or sabianism 1 to 4 times per year 08/02/2020 services? Do you belong to any clubs or organizations such No 08/02/2020 as temple groups, unions, fraternal or athletic groups, or [...] Coding Summary-Paper Based CODING DATE: 10/20/2016 FINAL [facility] STATUS: * Discharged to Home [...] HOLLY Date Saved: 10/20/2016 01:24 pm Source: [facility] Document Id: [id number] documented in this encounter Plan of Treatment Not on filedocumented as of this encounter Visit Diagnoses Not on filedocumented in this encounter
--- OUTSIDE RECORDS SUMMARY | 2022-02-28 09:51 | XMS_ITS | Encounter Summary ---
:2000 Author Organization [facility] Address [address] [place] [address] Care Team Providers Name Role Phone Unavailable Primary Care Provider Unavailable Encounter Details Date Type Department Care Team Description 10/09/2016 Hospital Encounter HX FBCV FAMILYPRA Amrita Payan P.A.-C. [address] [place] [address] (Wo rk) Social History Tobacco Use [...] How often do you attend synagogue or congregational 1 to 4 times per [...] Payan P.A.-C. - 10/09/2016 3:04 PM CDT [id number] CHIEF COMPLAINT/REASON FOR VISIT Sore throat. HISTORY [...] PAYAN PA-C On: 10/12/2016 09:00 AM Source: [facility] MHSDOLBEYNONRADSYS Document Id: [id number] documented in this encounter Miscellaneous Notes Miscellaneous - Mikael Payan P.A.-C. - 10/09/2016 4:34 PM CDT Ambulatory Discharge Medication List [address] [id number] Visit Information Name: CITLALY HOLLAND [facility] Number: [id number] Current Date: 10/09/2016 16:34:51 [...] PA-C Signed On:09-OCT-2016 16:34:49 Additional Information: Source: [facility] POWERCHART Document Id: [id number] Miscellaneous - Mikael Payan P.A.-C. - 10/09/2016 4:34 PM CDT Ambulatory Patient Summary [address] [id number] Visit Information Name: CITLALY HOLLAND [facility] Number: [id number] Current Date: 10/09/2016 16:34:51 [...] if you dont have one. Go to [email or web address] and click on Create Your Account. Then, follow the directions to complete the online form. Youll be asked for your [facility] number which you can find at the top of this document. Your Goals/Additional instructions: Source: [facility] POWERCHART Document Id: [id number] Miscellaneous - Roxana Hernandez L.PBettieNBettie - 10/09/2016 3:18 PM CDT Pediatric Wet Sander Intake/History Pediatric Wet Sander Intake/History Entered On: 10/09/2016 15:20 CDT Performed [...] Information Given By : Patient Languages : Slovenian Is Patient Female and 13-50 no hysterectomy [...] HERNANDEZ LPN - 10/09/2016 15:18 CDT [facility] POWERCH[facility] Document Id: [id number] CDT!45 documented in this encounter Plan of [...] Strep A Screen (10/09/2016 3:30 PM CDT) [facility] Quoteroller Method Time Signature HXRapid Strep POWERCHART Confirmation [...] Strep A Screen (10/09/2016 3:30 PM CDT) [facility] Quoteroller Method Time Signature HXStrep A POWERCHART Screen [...]
--- OUTSIDE RECORDS SUMMARY | 2022-02-28 09:51 | XMS_ITS | Encounter Summary ---
:1998 Author Organization [facility] Address [address] [place] [address] Care Team Providers Name Role Phone Unavailable [...] How often do you attend sabianist or hinduism 1 to 4 times per [...] ??Exam: US Cranial Pediatrics Indications: *PORTABLE*HEAD-FOLLOW UP ?[id number] ORIGINAL REPORT - 05-Feb-1999 17:40:00 The brain [...] Cranial Pe diatrics Indications: *PORTABLE*HEAD-FOLLOW UP [id number] ORIGINAL REPORT - 05-Feb-1999 17:40:00 The brain [...] in further evaluation. Electronically signed by: ?? Yloi Hickman MD. ??[phone] 31-Jan-1999 14:49 Procedure Note [...] 1 4:49 Robert GONZALEZ DIAGNOSTIC IMAGING PROCE [facility] general Pathology Report (01/29/1999 1:49 PM CDT) Specimen Anatomical Collection Method Collection Time Receive d Time (Source) Location / / Volume Laterality 01/29/1999 1:49 PM 9 1:49 CDT PM CDT Narrative [facility] - 01/29/1999 1:49 PM CDT [id number] Surgical Pathology Requested By: ? Ruben park M.D. ?([id number]) ?? TISSUE DESCRIPTION: ?? Distal ostomy (2.5 cm with ellipse o f skin) and proximal ostomy (5.2 cm in length) ?? [id number] A1, A2 ?? DIAGNOSIS: ?? Distal ostomy, excision: ??Benign sq uamous epithelium and colonic-type mucosa with mild chronic ?? inflammation. ?? Proximal ostomy, excision: ??Benign small bowel mucosa. ?? 29Jan1999 ?Erik TaverasS.:dam Procedure Note 08/20/2017 29Jan1999 Surgical Pathology Requested By: Ruben Shipley M.D. ([id number]) TISSUE DESCRIPTION: Distal ostomy (2.5 cm with ellipse of s kin) and proximal ostomy (5.2 cm in length) [id number] A1, A2 DIAGNOSIS: Distal ostomy, excision: Benign squamou s epithelium and colonic-type mucosa with mild chronic inflammation. Proximal ostomy, excision: Benign small bowel mucosa. 29Jan1999 Erik TaverasS.:suze toney Ruben Shipley M.D. LAB PATHOLOGY/CYTOLOGY ORDER TAYLOR Performing Organization Address City/State/ZIP Code Phon e Number [facility] - [address] Upper GI Double Contrast Without KUB [...] stomach. Electronically signed by: John Cassidy MD [phone] 28-Jan-1999 11:0 5 Hernan Maza M.D. IMLucía DIAGNOSTIC IMAGING PROCE [facility] Small Bowel (01/27/1999 2:36 PM [...] Electronically signed by: ?? Yoli Hickman MD. ??[phone] 27-Jan-1999 15:14 Procedure Note Cecily Hickman M.D. [...] pneumotosis. Electronically signed by: Yoli Hickman MD. [phone] 27-Jan-1999 1 5:14 Robert Nick M.D. IMLucía [...] pneumotosis. Electronically signed by: Yoli Hickman MD. [phone] 27-Jan-1999 1 5:14 Robert Nick M.D. IMLucía [...] or co arctation. 2-D COMMENT: ??TAPE NUMBER: [id number]/09:45-34:40 ?Complete two-dimensional, color flow, and Doppler echocardiography [...] SYSTOLIC VALVE AREAS - ROUTIN E - AFOGNAK VALVE ? LVOT velocity (V1) ? 0.1 [...] Hg ? Narrative 01/23/1999 12:00 AM CDT [id number] ??ECHO ?FINAL REPORT ?? REPORT DATE: 23Jan1999 REFERRING MD: ??NICU ?RESPONSIBLE MD: ??Travis PBettie Mancera [phone] PROCEDURE TYPES: ?? 2-D, Doppler Video, and Color Flow. REFERRAL DIAGNOSIS: ?? Cardiomyopathy. ??Pediatric congenit al heart disease. HEMODYNAMICS: ?? Heart rate 151 BPM. ?? BP=44/31 FINAL Procedure Note Provider, Historical - 08/31/2017Formatt ing of this note might be different from the original. [id number] ECHO FINAL REPORT REPORT DATE: 23Jan1999 REFERRING MD: NICU RESPONSIBLE MD: Jermaine Farrell [phone] PROCEDURE TYPES: 2-D, Doppler Video, and Color [...] arteriosus or coarctation. 2-D COMMENT: TAPE NUMBER: [id number]:[id number]:40 Complete two-dimensional, color flow, a nd Doppler [...] AORTIC SYSTOLIC VALVE AREAS - ROUTINE - AFOGNAK VALVE LVOT velocity (V1) 0.1 m/sec Peak Aortic velocity (V2) 0.4 * m/sec 0 .5-1.8 Peak Aortic time monique int(TVI2) 29.0 cm V1/V2 ratio 0.25 LVOT diameter 0.5 cm Valve area (by velocity) 0.05 cm2 Peak velocity obtained from apex TRICUSPID SYSTOLIC - ROUTINE - AFOGNAK V ALVE Peak velocity 2.2 m/sec Maximal [...] Electronically signed by: ?? John ??Khanh MICHAEL ??[id number] 07-Jan-1999 13:50 Procedure Note Kaye Cassidy M.D. [...] 100.120 Electronically signed by: John Cassidy MD [phone] 07-Jan-1999 13:5 0 Robert Nick M.D. IMG US PROCEDURES HX SUBSEQ ORDER FOR NB? (01/03/1999 12:31 PM CDT) Specimen Anatomical Collection Method Collection Time Receive d Time (Source) Location / / Volume Laterality 01/03/1999 12:31 01/12/1999 1:14 PM CDT AM CDT Narrative [facility] - 01/03/1999 12:31 PM CDT 03 Jan 1999 ?[id number] ?Ro ?12:31 ?? Subsq Order for NB: ?Blood Component ?R BC, Irradiated Leukoreduced ?CPDA-1, Divided ?Transfused ? 04 Jan 1999 ?Unit Number Id ? [id number] Procedure Note 09/15/2017 03 Jan 1999 [id number] Ro 12:31 Subsq Order for NB: Blood Component RBC, Irradiated Leukore duced CPDA-1, Divided Transfused 04 Jan 1999 Unit Number Id [id number] Historical Provider LAB HISTORICAL ORDERS Performing Organization Address City/State/ZIP Code Phon e Number [facility] - [address] [place], [place] [address] [facility] DX Chest and Abdomen Portable 1 [...] RLQ. Electronically signed by: John Cassidy MD [id number] 02-Jan-1999 07:3 6 Braulio Franco M.D. IMG DIAGNOSTIC IMAGING PROCE [facility] [[email or web address]] DX Infant Chest and Abdomen Portable 1 [...] Electronically signed by: ?? Yoli Hickman MD. ??[phone] 01-Jan-1999 10:59 Procedure Note Cecily Hickman M.D. [...] RLQ. Electronically signed by: Yoli Hickman MD. [phone] 1 0:02 Braulio Franco M.D. IMG [...] Dave Fields Ph.D. IMG DI[facility]NOSTIC IMAGING [facility] Chest Portable 1 View (1998 [...] abdomen. Electronically signed by: ?? B.R. Bullernestina ??[phone] ([id number]) 1998 07:35 I have reviewed the films/images and agr ee with the above interpretation. Electronically signed by: ?? Yoli Hickman MD. ??[phone] 08:58 Procedure Note Cecily Hickman M.D. [...] the abdomen. Electronically signed by: Esequiel Velasco [phone] ([id number]) 1998 07 :35 I have reviewed the films/images and agr ee with the above interpretation. Electronically signed by: Yoli Hickman MD. [phone] 0 8:58 Braulio Franco M.D. IMG [...] ?? Electronically signed by: ?? Esequiel Velasco ??[phone] ([id number]) 1998 00:24 I have reviewed the [...] of bowel. Electronically signed by: Esequiel Velasco [phone] ([id number]) 1998 00 :24 I have reviewed the films/images and agr ee with the above interpretation. Electronically signed by: Yoli Hickman MD. [phone] 1 5:39 Robert Nick M.D. IMLucía [facility]AGNOSTIC IMAGING [facility] Infant Chest and Abdomen Portable [...] catheter. Electronically signed by: ?? Esequiel Velasco ??[phone] ([id number]) 1998 22:14 I have reviewed the films/images [...] Ball catheter. Electronically signed by: Esequiel Velasco [phone] ([id number]) 1998 22 :14 I have reviewed the films/images and agr ee with the above interpretation. Electronically signed by: Yoli Hickman MD. [phone] 1 5:44 Robert Nick M.D. IMLucía DIAGNOSTIC IMAGING PROCE [facility] DX Infant Chest and Abdomen Portable 1 [...] air. Electronically signed by: ?? Esequiel Velasco ??[phone] ([id number]) 1998 07:25 I have reviewed the films/images [...] free air. Electronically signed by: Esequiel Velasco [phone] ([id number]) 1998 07 :25 I have reviewed the films/images and agr ee with the above interpretation. Electronically signed by: Yoli Hickman MD. [phone] 0 9:26 Braulio GONZALEZ DIAGNOSTIC IMAGING PROCE [facility] DX Chest Portable 1 View (1998 [...] AM 9 1:16 CDT AM CDT [facility] 1998 8:47 AM CDT 1998 ?[id number] ?Ro ?08:47 ?? Subsq Order for NB: ?Blood Component ?R BC, Irradiated Leukoreduced ?CPDA-1, Divided ?Transfused ? 1998 ?Unit Number Id ? [id number] Procedure Note 09/15/2017 1998 [id number] Ro 08:47 Subsq Order for NB: Blood Component RBC, Irradiated Leukore duced CPDA-1, Divided Transfused 1998 Unit Number Id [id number] Historical Provider LAB HISTORICAL ORDERS Performing Organization Address City/State/ZIP Code Phon e Number [facility] - [address] [place], [place] [address] [facility] DX Chest and Abdomen Portable 1 [...] notified. Electronically signed by: ?? Mannie Fu ??[phone] ([id number]) 22-Dec-18 99 21:07 I have reviewed the films/images and agr ee with the above interpretation. Electronically signed by: ?? Chris Vega ??[phone] 21:45 Procedure Note Paolo Vega M.D. [...] notifie d. Electronically signed by: Mannie Fu [phone] ([id number]) 1998 21:07 I have reviewed the films/images and agr ee with the above interpretation. Electronically signed by: Chris Vega [phone] 21:45 Reed GONZALEZ DIAGNOSTIC IMAGING PROCE DURES HX SUBSEQ ORDER FOR NB? (1998 6:34 PM CDT) Specimen Anatomical Collection Method Collection Time Receive d Time (Source) Location / / Volume Laterality 1998 6:34 PM 9 1:16 CDT AM CDT Narrative [facility] - 1998 6:34 PM CDT 1998 ?[id number] ?Ro ?18:34 ?? Subsq Order for NB: ?Blood Component ?R BC, Irradiated Leukoreduced ?CPDA-1, Divided ?Transfused ? 1998 ?Unit Number Id ? [id number] ?Blood Component ?R BC, Irradiated Leukoreduced ?CPDA-1, Divided ?Transfused ? 1998 ?Unit Number Id ? [id number] Procedure Note 09/15/2017 1998 [id number] Ro 18:34 Subsq Order for NB: Blood Component RBC, Irradiated Leukore duced CPDA-1, Divided Transfused 1998 Unit Number Id [id number] Blood Component RBC, Irradiated Leukore duced CPDA-1, Divided Transfused 1998 Unit Number Id [id number] Historical Provider LAB HISTORICAL ORDERS Performing Organization Address City/State/ZIP Code Phon e Number [facility] - [address] [place], [place] [address] [facility] Hx general Pathology Report (1998 6:52 AM CDT) Specimen Anatomical Collection Method Collection Time Receive d Time (Source) Location / / Volume Laterality 1998 6:52 AM 9 6:52 CDT AM CDT Narrative [facility] - 1998 6:52 AM CDT [id number] Surgical Pathology Requested By: ? Bryant Maza M.D. ? ([id number]) ?? TISSUE DESCRIPTION: ?? 4 cm small bowel ?? [id number] A1 ?? DIAGNOSIS: ?? Small bowel, partial resection: ??Se gment of small bowel with marked ischemic changes, ?? consistent with necrotizing enteroco litis. ?? [id number] ?Brian Taveras.S.:mgs Procedure Note 08/20/2017 [id number] Surgical Pathology Requested By: Hernan Maza M.D. ( [id number]) TISSUE DESCRIPTION: 4 cm small bowel [id number] A1 DIAGNOSIS: Small bowel, partial resection: Segment of small bowel with marked ischemic changes, consistent with necrotizing enterocolit is. [id number] Abdi TaverasB.S.:mg s Hernan Maza M.D. LAB PATHOLOGY/CYTOLOGY ORDER TAYLOR Performing Organization Address City/State/ZIP Code Phon e Number [facility] - [address] [place], [place] [address] [facility] DX Infant Chest and Abdomen Portable [...] Robert Nick M.D. IMG DIAGNOSTIC IMAGING PROCE [facility] [[email or web address]] DX Chest and Abdomen Portable 1 View [...] RA. Electronically signed by: ?? Esequiel Velasco ??[phone] ([id number]) 1998 06:50 I have reviewed the films/images and agr ee with the above interpretation. Electronically signed by: ?? Yoli Hickman MD. ??[phone] 12:15 Procedure Note Cecily Hickman M.D. [...] interpretation. Electronically signed by: Yoli Hickman MD. [phone] 1 2:15 Robert GONZALEZ DIAGNOSTIC IMAGING PROCE [facility] [[email or web address]] DX Infant Chest and Abdomen Portable 1 [...] Robert Nick M.D. IMLucía DIAGNOSTIC IMAGING PROCE [facility] [[email or web address]] DX Abdomen Portable Anterior Posterior 1 View [...] interspace. Electronically signed by: ?? China Arrieta ??[phone] ([id number]) 1998 1 0:03 I have reviewed [...] L4-L5 interspace. Electronically signed by: China Arrieta [phone] ([id number]) 1998 10: 03 I have reviewed the films/images and agr ee with the above interpretation. Electronically signed by: John Cassidy MD [phone] 10:5 3 Historical Provider IMG DIAGNOSTIC [...] Electronically signed by: ?? Yoli Hickman MD. ??[phone] 14:12 Procedure Note Cecily Hickman M.D. [...] recommended. Electronically signed by: Yoli Hickman MD. [phone] 1 4:12 Robert Nick M.D. IMG [...] abdomen. Electronically signed by: ?? China Arrieta ??[phone] ([id number]) 1998 0 7:17 I have reviewed the films/images and agr ee with the above interpretation. Electronically signed by: ?? Yoli Hickman MD. ??[phone] 09:22 Procedure Note Cecily Hickman M.D. [...] the abdomen. Electronically signed by: China Arrieta [phone] ([id number]) 1998 07: 17 I have reviewed the films/images and agr ee with the above interpretation. Electronically signed by: Yoli Hickman MD. [phone] 0 9:22 Robert GONZALEZ DIAGNOSTIC IMAGING PROCE [facility] [[email or web address]] DX Chest Portable 1 View (1998 6:56 [...] Electronically signed by: ?? John ??Khanh MICHAEL ??[phone] 07:03 Procedure Note Kaye Cassidy M.D. - 09/06/2017Form atting of this note might be different from the original. 1998 06:56:00 Exam: Portable-Ches t Indications: follow rds ORIGINAL REPORT - 1998 07:03:00 Since yesteray, the ETT has been removed . Enteric tube, UAC, and UVC, remain in place and are unchanged in position. Pulmonary infiltrates have improved. Electronically signed by: John Cassidy MD [phone] 07:0 3 Robert Nick M.D. IMG [...] pattern. Electronically signed by: ?? China Arrieta ??[phone] ([id number]) 1998 0 7:14 I have reviewed [...] gas pattern. Electronically signed by: China Arrieta [phone] ([id number]) 1998 07: 14 I have reviewed the films/images and agr ee with the above interpretation. Electronically signed by: Chris Vega [phone] 10:51 Robert Nick M.D. IMG DIAGNOSTIC IMAGING [facility] US Head (1998 3:48 PM CDT) Anatomical [...] D:100.120 Electronically signed by: Yoli Hickman MD. [phone] 1 7:38 Robert Nick M.D. IMG [...] pattern. Electronically signed by: ?? China Arrieta ??[phone] ([id number]) 1998 0 7:54 I have reviewed [...] gas pattern. Electronically signed by: China Arrieta [phone] ([id number]) 1998 07: 54 I have reviewed the films/images and agr ee with the above interpretation. Electronically signed by: John Cassidy MD [phone] 09:0 1 Robert Nick M.D. IMG DIAGNOSTIC IMAGING PROCE [facility] [[email or web address]] US Head (1998 4:08 PM CDT) Anatomical Region Laterality Modality Head N/A Ultrasound Specimen (Source) Anatomical Collection Method Collection Time Re ceived Time Location / / Volume Laterality 1998 4:08 PM CDT Narrative 1998 5:29 PM CDT 1998 16:08:00 ??Exam: US Cranial Pediatrics Indications: *PORTABLE*HEAD-R/O IVH ?1ST [id number] ORIGINAL REPORT - 1998 17:29:00 I:100.705 ??No [...] Electronically signed by: ?? Yoli Hickman MD. ??[phone] 17:29 Procedure Note Cecily Hickman M.D. - 09/06/2017Form atting of this note might be different from the original. 1998 16:08:00 Exam: US Cranial Pe diatrics Indications: *PORTABLE*HEAD-R/O IVH [facility] [id number] ORIGINAL REPORT - 1998 17:29:00 I:100.705 No definite evidence of germin al matrix hemorrhage. Ventricles are normal in size. There is increased echotexture in the periventricular white matter, more prominent on the right. While this may represent a normal halo, periventricular leukomalaci a cannot be excluded. No definite evidence of intraventricular hemorrhage. Corpus callosum is present. D:100.120 Electronically signed by: Yoli Hickman MD. [phone] 1 7:29 Robert Nick M.D. IMLucía [...] Electronically signed by: ?? Yoli Hickman MD. ??[phone] 08:03 Procedure Note Cecily Hickman M.D. [...] loops. Electronically signed by: Yoli Hickman MD. [phone] 0 8:03 Robert Nick M.D. IMG [...] Clinton Luna M.D. IMG DIAGNOSTIC IMAGING PROCE [facility] [[email or web address]] DX Infant Chest and Abdomen Portable 1 [...] bowel. Electronically signed by: ?? [employer] [place] ??[phone] [id number]) 1998 23:46 I have reviewed the films/images and agr ee with the above interpretation. Electronically signed by: ?? John ??Khanh MICHAEL ??[phone] 06:13 Procedure Note Kaye Cassidy M.D. [...] mid bowel. Electronically signed by: Jermaine Gamino [phone] ([id number]) 1998 2 3:46 I have reviewed the films/images and agr ee with the above interpretation. Electronically signed by: John Cassidy MD [phone] 06:1 3 Clinton GONZALEZ DIAGNOSTIC IMAGING PROCE DURES documented in this encounter Visit Diagnoses Not on filedocumented in this encounter
--- OUTSIDE RECORDS SUMMARY | 2022-02-28 09:51 | XMS_ITS | Encounter Summary ---
:1998 Author Organization [facility] Address [address] [place] [address] Care Team Providers Name Role Phone Unavailable Primary Care Provider Unavailable Encounter Details Date Type Department Care Team Description 01/30/2011 Hospital Encounter HX [facility] FAMILYPRA Elmo Kitchen, BEL, C.N.P., D. N.P. [address] [place], [place] [address] (Wo rk) Social History [...] How often do you attend gnosticism or baptist 1 to 4 times per year 08/02/2020 [...] 01/30/2011 1:23 PM CD T Growth Chart: [facility] (Girls, 2-20 Years) documented in this encounter Progress Notes Lisa Kitchen APRN, C.N.P. - 01/30/2011 12:00 AM CDT [id number] CHIEF COMPLAINT / REASON FOR VISIT 12 [...] dad and patient as documented on the [facility] clinic visit sheet which will [...] CRANDALL CNP On: 02/06/2011 02:26 pm Source: [facility] MHSDOLBEYNONRADSYS Document Id: [id number] documented in this encounter Procedure Notes Conversion, Historical Provider Ser - 01/30/2011 1:23 PM CDT Vision Testing Vision Testing Entered On: 01/30/2011 13:25 CDT Performed On: 01/30/2011 13:23 CDT by CHARO TENORIO Vision Testing Corrective Lenses: Glasses Eye, Right w/o Correction: 20/80 Eye, Left w/o Correction: 20/50 CHARO TENORIO - 01/30/2011 13:23 CDT Source: [facility] POWERCHART Document Id: [id number] CDT!5 documented in this encounter Miscellaneous Notes Miscellaneous - Lisa Kitchen APRN, C.N.P. - 01/30/2011 3:09 PM CDT Ambulatory Patient Summary [address] [address] Visit Information Name: CITLALY HOLLAND [...] No Appointments found Your Goals/Additional instructions: Source: [employer] Document Id: [id number] Electronically signed by Conversion, [facility] Senior Corporate Strategy Manager [id number] at 11/01/2016 2:47 PM CDT Miscellaneous - Lisa Kitchen, BEL, C.N.P. - 01/30/2011 3:09 PM CD[place] [address] Visit Information Name: CITLALY HOLLAND Current Date: [...] to the patient and/or family, guardian/caregiver. Source: [employer] Document Id: [id number] Electronically signed by Conversion, [employer] Senior Corporate Strategy Manager [id number] at 11/01/2016 2:47 PM CDT Miscellaneous - Conversion, Historical Provider Ser - 01/30/2011 1:23 PM CDT Pediatric Complex Manager Intake/History Document Has Been Updated Pediatric Complex Manager Intake/History Entered On: 01/30/2011 13:24 CDT Performed [...] ; Reviewed Date: 01/30/2011 13:27 CDT Source: [facility] POWERCHART Document Id: [id number] CDT!3 documented in this encounter Plan of Treatment Not on filedocumented as of this encounter Visit Diagnoses Not on filedocumented in this encounter
--- OUTSIDE RECORDS SUMMARY | 2022-02-28 09:51 | XMS_ITS | Encounter Summary ---
:1998 Author Organization [facility] Address [address] [place] [address] Care Team Providers Name Role Phone Unavailable [...] How often do you attend religion or yazidism 1 to 4 times per [...] Electronically signed by: ?? Yoli Hickman MD. ??[phone] 15:04 Procedure Note Cecily Hickman M.D. [...] AM 9 5:11 CDT PM CDT Narrative [facility] [place] - 1998 9:09 AM CDT 1998 ?[id number] ?Ro ?09:09 ?? Subsq Order for NB: ?Blood Component ?R BC, Irradiated Leukoreduced ?CPDA-1, Divided ?Transfused ? 28 Jan 1999 ?Unit Number Id ? [id number] Procedure Note 09/15/2017 1998 [id number] Ro 09:09 Subsq Order for NB: Blood Component RBC, Irradiated Leukore duced CPDA-1, Divided Transfused 28 Jan 1999 Unit Number Id [id number] Historical Provider LAB HISTORICAL ORDERS Performing Organization Address City/State/ZIP Code Phon e Number [facility] - [address] [place] [address] [facility] Prepare Red Blood Cells (1998 9:08 AM CDT) Specimen Anatomical Collection Method Collection Time Receive d Time (Source) Location / / Volume Laterality 1998 9:08 AM 9 2:17 CDT PM CDT Narrative [facility] [place] - 1998 9:08 AM CDT 1998 ?[id number] ?Ro ?09:08 ?? RBC TRF Order: ?ABO/RH ? O POS ?Antibody Screen ?N eg Procedure Note 09/15/2017 1998 [id number] Ro 09:08 RBC TRF Order: ABO/RH O POS Antibody Screen Neg Historical Provider BLOOD BANK PRODUCT ORDERABLE S Performing Organization Address [facility] Phon e Number [facility] - [address] ABORh, RBC (1998 9:08 AM CDT) Specimen Anatomical Collection Method Collection Time Receive d Time (Source) Location / / Volume Laterality 1998 9:08 AM 9 9:54 CDT AM CDT Narrative [facility] [place] - 1998 9:08 AM CDT 1998 ?[id number] ?Ro ?09:08 ?? ABO and Rh Order (2): ?ABO/RH ? O POS Procedure Note 09/15/2017 1998 [id number] Ro 09:08 ABO and Rh Order (2): ABO/RH O POS Historical Provider LAB BLOOD BANK TEST ORDERABL ES Performing Organization Address [facility] Code Phon e Number [facility] [place] - [address] DX Chest and Abdomen Portable 1 [...]
[2022-02-28 10:06] VITALS: PULSE 98; O2SAT 97
[2022-02-28 10:16] VITALS: BP 120/57; PULSE 102; RESP 16; TEMP 36.6
--- NOTE | 2022-02-28 12:22 | PC.OBNST ---
NST Note NST Note Start: 02/28/22 09:56 Freq: ONCE Status: Active Protocol: Document 02/28/22 12:13 BENITA (Rec: 02/28/22 12:15 BENITA [id number]) NST Note 1 Para (# of births) 0 EDC 03/16/22 Gestational Age In Weeks & Days 37 Weeks & 5 Days High Risk Factors Diabetes - Gestational Diet Controlled Patient Presented with Complaint(s) of Contractions/cramping Reactive Yes Appropriate for Gestational Age Yes CHUCKY Warner Date 02/28/22 Reactive Yes Appropriate for Gestational Age Yes CHUCKY Timmons Date 02/28/22 OB NST charge Yes Complete NST Note via Write Note Yes The provider's electronic signature indicates the NST is reactive/appropriate for gestational age. *Note to provider: If an addendum is required, open the patient's chart and click on the note under the Nurse/Allied Health tab.
== END 2022-02-28 12:23 | disposition home or self-care (01) ==
LOC: OB OUT 09:48 → OB 09:49
PROVIDERS: Visit Provider Advanced Practice Midwife
DX: O24.419 Gestational diabetes mellitus in pregnancy, unspecified control (principal)
CPT/HCPCS: 59025; 99213

== ENCOUNTER 2022-03-01 04:48 | Inpatient (IN) | payer OTHER, SELFPAY ==
[2022-03-01] VITALS (139 sets, daily range): BP systolic 93–172; BP diastolic 51–107; PULSE 77–140; RESP 16–20; TEMP 36.4–37.4; O2SAT 77–100; BMI 38.1
--- OUTSIDE RECORDS SUMMARY | 2022-03-01 04:09 | XMS_ITS | Encounter Summary ---
:2000 Author Organization [facility] Address [address] [place] [address] Care Team Providers Name Role Phone Chaparro Payan P.A.-C. Primary Care Provider [phone] Reason for Referral Outpatient (Routine) - Closed Specialty Diagnoses / Procedures Referred By Contact Refer red To Contact Diagnoses Bicuspid Aortic Valve (HCC) Americo Bear M.D. [facility] Procedures Echo Transthoracic (TTE) - Adult Congenital [address] [place], [place] [address] Referral ID Status Reason Start Date Expiration Date Visits Requ ested Visits Authorized [id number] Closed 09/11/2021 09/11/2022 1 1 Reason for Visit Outpatient (Routine) - Closed Specialty Diagnoses / Procedures Referred By Contact Refer red To Contact Diagnoses Bicuspid Aortic Valve (HCC) Americo Bear M.D. [facility] Procedures Echo Transthoracic (TTE) - Adult Congenital [address] [place], [place] [address] Referral ID Status Reason Start Date Expiration Date Visits Requ ested Visits Authorized [id number] Closed 09/11/2021 09/11/2022 1 1 Encounter Details Date Type Department Care Team Description 09/16/2021 Hospital Encounter Department of Americo Bear Bicuspi d Aortic Cardiovascular Diseases Silvio Valve (HCC) in [facility] marya [address] [facility] [address] [place] [phone] Social History Tobacco Use Types Packs/Day Years [...] How often do you attend shinto or roman catholic 1 to 4 times [...] mg tablet Take 1 tablet by 0 qkhombc-Wh-ovap-FA (VINATE mouth daily. ONE) 60 mg iron-1 [...] COLOR AND DOPPLER (09/16/2021 1:54 PM CDT) [facility] Method Time Signature Ejection Fraction 64 [...] For the complete report, see the Order-L TEAM INTERVAL Documents. Final Impressions 1. Bicuspid aortic valve [...] documented as of this encounter Care Teams Rn Building Relationship Specialty Start Date End Date Chaparro Payan P.A.-C. PCP - General 02/05/[address] [place] [phone] documented as of this encounter
--- OUTSIDE RECORDS SUMMARY | 2022-03-01 04:09 | XMS_ITS | Clinical Summary ---
:2000 Author Organization [facility] [place] [address] Care Team Providers Name Role Phone Chaparro [...] and a bicuspid aortic valve. Follow up [facility] Estimated Date of Delivery Comments Yes [...] 157.5 cm (5' 2) 07/26/2020 1:58 AM HOME OFFICE CLAIM SPECIALIST Body Mass Index 35.43 07/26/2020 1:58 AM HOME OFFICE CLAIM SPECIALIST Plan of Treatment Health Maintenance Due Date [...] history exists COVID-19 vaccine series (3 - 04/25/2021 02/28/2021, 021 Booster for Pfizer series) Influenza for age 9-49 01/29/2022 04/30/2015, 01/24/2013, 03/14/2011, Additional history exists HPV series for age 9-26 Completed 08/16/2008, 03/27/2008, 12/19/2007 Tdap Completed 02/18/2011, 02/03/2011, 01/08/2003, Additional history exists Results Not on filefrom Last 3 Months Insurance Payer Benefit Plan / Subscriber ID Effective Dates Phone Addre ss Type Group BLUE CROSS BLUE CROSS OF [id number] 2015-Present [address] [place] [address] PREFERRED ONE PREFERRED ONE [id number] 2019-Present [address] [place] [address] [phone] [employer] [address] (Home) [place] [id number] [address] Personal/Famil Mother [phone] (Home) [address] [place] [id number] [employer] Employer 05/31/2000 [phone] [address] [employer] 4 [phone] (Home) [place] [id number] [employer] Employer 04/10/1911 [phone] ATTN H [employer] [id number] RESOURCES (Home) [address] [place] [address] [phone] [address] (Work) [place] MELVIN [phone] Care Teams Lead Refiner Relationship Specialty Start Date End Date Chaparro Payan PA PCP - General 09/24/[address] [place] [address] [place] [phone]
--- OUTSIDE RECORDS SUMMARY | 2022-03-01 04:09 | XMS_ITS | Clinical Summary ---
:2000 Author Organization [facility] Address [address] [place] [address] Care Team Providers Name Role Phone Chaparro Payan P.A.-C. Primary Care Provider [phone] Source Comments Patient records contain information from all sites at [facility]. For routine questions regarding patient records, call [phone] during business hours, M-F 8:00 AM - 5:00 PM Central Time. Record requests for emergency care only can be directed to [phone] at any time.[facility] Allergies Active Allergy Reactions Severity Noted Date Comments Penicillins Rash 12/19/2007 Medications Medication Sig Dispensed Refills Start Date End Date Status ibuprofen Take 800 mg by 0 Activ e (ADVIL,MOTRIN) 200 mg mouth. tablet albuterol 90 Inhale 2 puffs as 0 09/03/2021 Active mcg/actuation inhaler needed. Take 1 tablet by 0 Act navarro raprjho-Ms-qovn-FA mouth daily. (VINATE ONE) 60 mg iron-1 mg per tablet Active Problems Patient Care Coordination Note Formatting of this note might be differe nt from the original. Spouse: no Children: no Work: no AYAZ on file for mom Amy ([phone]) Problem Noted Date Overweight Body Mass Index [...] How often do you attend rastafarian or orthodoxy 1 to 4 times per [...] CDT Respiratory Rate 16 08/02/2020 2:23 PM FUEL CELL BINDER Oxygen Saturation 100% 09/16/2021 8:36 AM CDT [...] Address T ype Group Dates PREFERREDONE PREFERREDONE [id number] 2019-Pre [phone] PPO ADMINISTRATIVE ADMINISTRATIVE sent [phone] [place] [phone] Care Teams Smoking Pipe Repairer Relationship Specialty Start Date End Date Chaparro Payan P.A.-C. PCP - General 02/05/18 [address] [place] [phone]
--- OUTSIDE RECORDS SUMMARY | 2022-03-01 04:10 | XMS_ITS | Encounter Summary ---
:2000 Author Organization [facility] Address [address] [place] [address] Care Team Providers Name Role Phone Reece, Miranda Guadalupe APRN C.N.PBettie, M.S.N. Primary Care Pr ovider Reason for Referral Outpatient (Routine) - Closed Specialty Diagnoses / Referred By Contact Referred To Contact Procedures Cardiovascular Diseases / Diagnoses Bicuspid Aortic Valve (HCC) Phyllis Ramírez, [facility] Cardiovascular Disease Silvio [address] [place] [address] Referral ID Status Reason Start Date Expiration Date Visits Requ ested Visits Authorized [id number] Closed 11/03/2017 11/03/2018 1 1 Encounter Details Date Type Department Care Team Description 11/03/2017 Orders Only Department of [facility] Phyllis Ramírez, Bic uspid Aortic Valve Medicine, Oren Anguiano (HCC) (Primary Dx) Clinic, in [address] [facility] [id number] [place] [address] [phone] (Work) [phone] Social History Tobacco Use Types Packs/Day Years [...] How often do you attend anabaptism or caodaism 1 to 4 times per [...] as of this encounter Care Teams Welding Machine Operator Thermit Relationship Specialty Start Date End Date Miranda Reece APRN, C.N.P., PCP - General 02/04/18 M.S.N. [address] [place] [address] documented as of this encounter
--- OUTSIDE RECORDS SUMMARY | 2022-03-01 04:10 | XMS_ITS | Encounter Summary ---
:2000 Author Organization [facility] Address [address] [place] [address] Care Team Providers Name Role Phone Chaparro Payan P.A.-C. Primary Care Provider [phone] Encounter Details Date Type Department Care Team Description 03/28/2020 Admin Visit Department of Family Medicine, [address] [address] [facility] [phone] Social History Tobacco Use Types Packs/Day Years [...] How often do you attend mandaeism or temple 1 to 4 times per year 08/02/2020 [...] documented as of this encounter Care Teams Cured Meat Packing Supervisor Relationship Specialty Start Date End Date Chaparro Payan P.A.-C. PCP - General 02/05/[address] [place] [phone] documented as of this encounter
--- OUTSIDE RECORDS SUMMARY | 2022-03-01 04:10 | XMS_ITS | Encounter Summary ---
:2000 Author Organization [facility] Address [address] [place] [address] Care Team Providers Name Role Phone Chaparro Payan P.A.-C. Primary Care Provider [phone] Encounter Details Date Type Department Care Team Description 09/16/2021 Hospital Encounter Department of Americo Bear [facility] Obstetrics and MJeronimo ([facility]) Gynecology in [address] [place] [address] [place] [address] [place], [place] [phone] (Work) [phone] Social History Tobacco Use Types Packs/Day Years [...] How often do you attend congregation or caodaism 1 to 4 times per [...] mg tablet Take 1 tablet by 0 ebbtsvy-Xs-sslr-FA (VINATE mouth daily. ONE) 60 mg iron-1 [...] AND OR GROWTH ABEL Exam Site: [facility]139 Plurality: 1 OBHx: [G:(1)] ?F [...] Read by Wing Willett on 8:30:37 AM. Veneer Slicing Machine Operator: ??Wing Willett Thank You For This Referral Procedure Note Yvonne Sanchez M.D. - 09/16/2021Forma tting of this note might be different from the original. CITLALY HOLLAND OB Exam, 09/16/2021 EXAM INFORMATION Patient Name: CITLALY HOLLAND : 2000 Age: 20 yrs Sex: Female Ref Phys: AMERICO BEAR Exam Date: 09/16/2021 Procedure: US OB FOLLOW-UP AND OR GROWTH ABEL Exam Site: [facility]139 Plurality: 1 OBHx: [G:(1)] F [...] by Wing Willett on 022 8:30:37 AM. Veneer Slicing Machine Operator: Wing Willett Thank You For This Referral Americo Bear M.D. IMG OB US PROCEDURES documented in this encounter Visit Diagnoses Diagnosis High Risk (HCC) documented in this encounter Additional Health Concerns Assessment Noted Time PHQ-9 Depression Total Score: 8 10/13/2017 12:58 PM CD T documented as of this encounter Care Teams Commercial Lines Manager Relationship Specialty Start Date End Date Chaparro Payan P.A.-C. PCP - General 02/05/18 [address] [place] [phone] documented as of this encounter
--- OUTSIDE RECORDS SUMMARY | 2022-03-01 04:10 | XMS_ITS | Encounter Summary ---
:2000 Author Organization [facility] Address [address] [place] [address] Care Team Providers Name Role Phone Chaparro Payan P.A.-C. Primary Care Provider [phone] Encounter Details Date Type Department Care Team Description 08/25/2021 Orders Only Department of Mónica Noe High Risk Obstetrics and J, R.N. (Primary Dx) Gynecology in [address] [place] [address] [place] [phone] [place], [place] [phone] (Work) [phone] Social History Tobacco Use Types Packs/Day Years [...] How often do you attend orthodox or nondenominational 1 to 4 times per [...] AND OR GROWTH ABEL Exam Site: [facility]139 Plurality: 1 OBHx: [G:(1)] ?F [...] Read by Wing Willett on 8:30:37 AM. Glove Boarder: ??Wing Willett Thank You For This Referral Procedure Note Yvonne Sanchez M.D. - 09/16/2021Forma tting of this note might be different from the original. CITLALY HOLLAND OB Exam, 09/16/2021 EXAM INFORMATION Patient Name: CITLALY HOLLAND : 2000 Age: 20 yrs Sex: Female Ref Phys: AMERICO BEAR Exam Date: 09/16/2021 Procedure: US OB FOLLOW-UP AND OR GROWTH ABEL Exam Site: [facility]139 Plurality: 1 OBHx: [G:(1)] F [...] Read by Wing Willett on 8:30:37 AM. Glove Boarder: Wing Willett Thank You For This Referral Americo Bear M.D. IMG OB US PROCEDURES documented in this encounter Visit Diagnoses Diagnosis High Risk (HCC) - Primary High Risk (HCC) documented in this encounter Additional Health Concerns Assessment Noted Time PHQ-9 Depression Total Score: 8 10/13/2017 12:58 PM CD T documented as of this encounter Care Teams Travel Rn Relationship Specialty Start Date End Date Chaparro Payan P.A.-C. PCP - General 02/05/[address] [place] [phone] documented as of this encounter
--- OUTSIDE RECORDS SUMMARY | 2022-03-01 04:10 | XMS_ITS | Encounter Summary ---
:2000 Author Organization [facility] Address [address] [place] [address] Care Team Providers Name Role Phone Chaparro Payan P.A.-C. Primary Care Provider [phone] Encounter Details Date Type Department Care Team Description 08/30/2020 Orders Only [facility] PCP [facility] Sa daina Buckley M.D. [address] [place], [place] [phone] (Wo rk) Social History [...] How often do you attend yazidi or alevism 1 to 4 times per [...] as of this encounter Care Teams Floor Installer Relationship Specialty Start Date End Date Chaparro Payan P.A.-C. PCP - General 02/05/[address] [place] [phone] documented as of this encounter
--- OUTSIDE RECORDS SUMMARY | 2022-03-01 04:10 | XMS_ITS | Encounter Summary ---
:2000 Author Organization [facility] Address [address] [place] [address] Care Team Providers Name Role Phone Chaparro Payan P.A.-C. Primary Care Provider Reason for Referral Specialty Diagnoses / Procedures Referred By Contact Refer red To Contact Chaparro Payan P. A.-C. [facility] [address] [place] [address] Referral ID Status Reason Start Date Expiration Date Visits Requ ested Visits Authorized ASSEMBLER AIRCRAFT Encounter Details Date Type Department Care Team Description 07/30/2021 Orders Only [facility] PCP [facility] Chaparro Payan P.A.-C. [address] [place] [phone] (Wo rk) Social History Tobacco [...] often do you attend oriental orthodox or scientology 1 to 4 times per [...] documented as of this encounter Care Teams Video Production Specialist Relationship Specialty Start Date End Date Chaparro Payan P.A.-C. PCP - General 02/05/[address] [place] [phone] documented as of this encounter
--- OUTSIDE RECORDS SUMMARY | 2022-03-01 04:10 | XMS_ITS | Encounter Summary ---
:2000 Author Organization [facility] Address [address] [place] [address] Care Team Providers Name Role Phone Chaparro Payan P.A.-C. Primary Care Provider [phone] Reason for Referral Outpatient (Routine) - Closed Specialty Diagnoses / Procedures Referred By Contact Refer red To Contact Diagnoses Bicuspid Aortic Valve (HCC) Fatigue Phyllis Ramírez M.D. [facility] [place] [facility] Procedures ECG 12 Lead VT EKG 12 LEAD TRACE ONLY VT EKG I&R ONLY 200 [facility] [place] [address] Referral ID Status Reason Start Date Expiration Date Visits Requ ested Visits Authorized [id number] Closed 09/03/2017 03/02/2018 1 1 Outpatient (Routine) - Closed Specialty Diagnoses / Procedures Referred By Contact Refer red To Contact Diagnoses Bicuspid Aortic Valve (HCC) Fatigue par review Phyllis Ramírez M.D. [facility] [place] [facility] Procedures Echo Transthoracic (TTE) VT ECHO TTE 2D W DPLR COMPLETE CVD ECHO [address] [place] [address] Referral ID Status Reason Start Date Expiration Date Visits Requ ested Visits Authorized [id number] Closed 09/03/2017 03/02/2018 1 1 Reason for Visit Reason Comments Annual Exam Encounter Details Date Type Department Care Team Description 09/03/2017 Comprehensive Visit Department of Hurtt, Phyllis Well A dult Examination Abnormal (Primary Dx); Family MedicineMaggy M.D. Overweight Body Mass Index 25-29.9 Adult ; [facility], [address] [facility] Bicuspid Aortic Valve (HCC); in [place], [place] Constipation Slow Transit; [place] [address] Dysmenorrhea; [address] [facility] AV [phone] Management Contraceptive; [place], [place] (Work) Fatigue; [phone] Screening Examination For [...] How often do you attend confucianism or muslim 1 to 4 times per year 08/02/2020 [...] % 09/03/2017 10:25 AM CDT Growth Chart: [facility] (Girls, 2-20 Years) documented in [...] ECHO DOPPLER COLOR (11/02/2017 8:41 AM CDT) [facility] Method Time Signature Ejection Fraction 59 [...] Signature Source URINE, FIRST 09/06/2017 [facility] VOID 12:11 PM CDT [facility] LAB Chlamydia Negative Negative 09/06/2017 [facility] trachomatis 12:11 PM CDT [facility] LAB Comment: ----ADDITIONAL INFORMATION---- This report is [...] - GENERAL O RDERABLES Performing Organization Address City/[facility]/ZIP Code Phon e Number [facility] [address] [place] [address] LAB ECG 12 Lead (09/03/2017 11:16 AM CDT) P athologist Signature Ventricular Rate 77 BPM MUSE ECG/Min VT Interval 136 ms MUSE QRSD Interval 80 ms MUSE QT Interval 330 ms MUSE QTC Interval 373 ms MUSE P [place] 31 degrees MUSE R [place] 7 degrees MUSE T Wave [place] 31 degrees MUSE Specimen Anatomical Collection Method Collection Time Receive d Time (Source) Location / / Volume Laterality 09/03/2017 11:16 09/03/2017 AM CDT 11:42 AM CDT Impressions MUSE - 09/03/2017 11:42 AM CDT Normal sinus rhythm Nonspecific ST abnormality No previous ECGs available Narrative This result has an attachment that is no t available. Phyllis Ramírez M.D. ECG ORDERABLES Performing Organization Address City/[facility]/ZIP Code Phon e Number MUSE MUSE NA S-TSH (Thyroid-Stimulating Hormone - Sensitive) (09/03/2017 11:08 AM CDT) P athologist Signature TSH, Sensitive 1.4 0.5 - 4.3 09/03/2017 [facility] mIU/L 1:46 PM CDT [facility] [place] [facility] Comment: Biotin has been identified by the jose matthews as a potential interfering substance. ??Higher concentr ations of biotin may be found in multivitamins, hair/nail supple ments, and workout supplements. ??If the result does not ma [facility] clinical observations, repeat testing after patient refrains fr om the use of supplements for at least 12 hours. Specimen Anatomical Collection Method Collection Time Receive d Time (Source) Location / / Volume Laterality Blood (Blood, 09/03/2017 11:08 09/03/2017 1:09 Venous) AM CDT PM CDT Phyllis Ramírez M.D. LAB BLOOD ADD-ON Performing Organization Address City/State/ZIP Code Phon e Number [facility] [address] [place] [address] LAB (ABNORMAL) Lipid Panel (09/03/2017 11:08 AM CDT) athologist Signature Cholesterol, 205 (H) mg/dL 09/03/2017 [facility] Total 1:46 PM CDT [facility] [place] LAB Comment: ----REFERENCE VALUE---- Desirable: < 200 Borderline high: 200 - 239 High: > or = 240 Triglycerides 206 (H) mg/dL 09/03/2017 1:46 PM CDT [facility] [place] [facility] Comment: ----REFERENCE VALUE---- Normal: <150 Borderline high: 150-199 High: 200-499 Very high: > or =500 Cholesterol, HDL, S 50 >=50 mg/dL 09/03/2017 1:46 PM CDT [facility] [place] [facility] Calculated LDL 114 mg/dL 09/03/2017 1:46 PM CDT [facility] [place] [facility] Comment: ----REFERENCE VALUE---- Desirable: <100 Above Desirable: 100-129 Borderline high: 130-159 High: 160-189 Very high: > or =190 Cholesterol, Non-HDL, 155 mg/dL 09/03/2017 1:46 PM CDT [facility] [place] B Comment: ----REFERENCE VALUE---- Desirable: <130 Above Desirable: 130-159 Borderline high: 160-189 High: 190-219 Very high: > or =220 Specimen Anatomical Collection Method Collection Time Receive d Time (Source) Location / / Volume Laterality Blood (Blood, 09/03/2017 11:08 09/03/2017 1:09 Venous) AM CDT PM CDT Phyllis Ramírez M.D. LAB BLOOD ADD-ON Performing Organization Address City/[facility]/ZIP Code Phon e Number [facility] [place] [address] [place] [address] LAB AST (Aspartate Aminotransferase) (09/03/2017 11:08 AM CDT) Patholo gist Method Time Signature Aspartate 16 8 - 43 09/03/2017 [facility] Aminotransferase U/L 1:46 PM CDT [facility]- [facility] LAB Specimen Anatomical Collection Method Collection Time Receive d Time (Source) Location / / Volume Laterality Blood (Blood, 09/03/2017 11:08 09/03/2017 1:09 Venous) AM CDT PM CDT Phyllis Ramírez M.D. LAB BLOOD ADD-ON Performing Organization Address City/[facility]/ZIP Code Phon e Number [facility] [place] [address] [place] [address] LAB (ABNORMAL) BMP (Basic Metabolic Panel) (09/03/2017 11:08 AM CDT) Analysis Performed At Path logist Time Signature Potassium, S 4.1 3.6 - 5.2 09/03/2017 [facility] mmol/L 1:46 PM CDT [facility] LAB Sodium, S 142 135 - 145 09/03/2017 [facility] mmol/L 1:46 PM CDT [facility] [place] [facility] Chloride, S 101 98 - 107 09/03/2017 [facility] mmol/L 1:46 PM CDT [facility] [place] [facility] Bicarbonate, S 30 (H) 22 - 29 09/03/2017 [facility] mmol/L 1:46 PM CDT [facility] LAB Anion Gap 11 7 - 15 09/03/2017 [facility] 1:46 PM CDT [facility] BUN (Blood Urea 8 6 - 21 09/03/2017 [facility] Nitrogen), S mg/dL 1:46 PM CDT [facility] [place] [facility] Creatinine 0.56 (L) 0.59 - 09/03/2017 [facility] 1.04 mg/dL 1:46 PM T [facility] LAB eGFR-Non >90 >=60 09/03/2017 [facility] Black/ mL/min/BSA 1:46 PM CDT [facility] [place] [facility] Comment: ----ADDITIONAL INFORMATION---- Estimated GFR calculated using the 2009 CKD_EPI creatinine equation. eGFR-Black/ >90 >=60 mL/min/BSA 2017 1:46 PM [facility]- [facility] LAB Comment: ----ADDITIONAL INFORMATION---- Estimated GFR calculated using the 2009 CKD_EPI creatinine equation. Calcium, Total, S 9.6 9.1 - 10.3 mg/dL 09/03/2017 1 :46 PM CDT [facility] Glucose, S 80 70 - 140 mg/dL 09/03/2017 1:46 PM CDT [facility] Specimen Anatomical Collection Method Collection Time Receive d Time (Source) Location / / Volume Laterality Blood (Blood, 09/03/2017 11:08 09/03/2017 1:09 Venous) AM CDT PM CDT Phyllis Ramírez M.D. LAB BLOOD ADD-ON Performing Organization Address City/State/ZIP Code Phon e Number [facility] [address] [address] LAB CBC with Differential (09/03/2017 11:08 AM CDT) P athologist Signature Hemoglobin 13.6 11.6 - 09/03/2017 [facility] 15.0 g/dL 11:36 AM T [facility] Hematocrit 40.7 35.5 - 09/03/2017 [facility] 44.9 % 11:36 AM T [facility] Erythrocytes 4.60 3.92 - 09/03/2017 [facility] 5.13 11:36 AM CDT HEALTH x10(12)/L [facility] MCV 88.5 78.2 - 09/03/2017 [facility] 97.9 fL 11:36 AM T [facility] RBC Distrib Width 13.2 12.2 - 09/03/2017 [facility] 16.1 % 11:36 AM CDT [facility] [place] [facility] Platelet Count 307 157 - 371 09/03/2017 [facility] x10(9)/L 11:36 AM CDT [facility] Leukocytes 8.7 3.4 - 9.6 09/03/2017 [facility] x10(9)/L 11:36 AM CDT [facility] [place] [facility] Neutrophils 5.74 1.56 - 09/03/2017 [facility] 6.45 11:36 AM CDT HEALTH x10(9)/L SYSTEM- [place] [facility] Lymphocytes 2.36 0.95 - 09/03/2017 [facility] 3.07 11:36 AM CDT HEALTH x10(9)/L SYSTEM- [place] [facility] Monocytes 0.48 0.26 - 09/03/2017 [facility] 0.81 11:36 AM CDT HEALTH x10(9)/L SYSTEM- [place] [facility] Eosinophils 0.08 0.03 - 09/03/2017 [facility] 0.48 11:36 AM CDT HEALTH x10(9)/L SYSTEM- [place] [facility] Basophils 0.01 0.01 - 09/03/2017 [facility] 0.08 11:36 AM CDT HEALTH x10(9)/L SYSTEM- [place] [facility] Specimen Anatomical Collection Method Collection Time Receive d Time (Source) Location / / Volume Laterality Blood (Blood, 09/03/2017 11:08 09/03/2017 Venous) AM CDT 11:08 AM CDT Phyllis Ramírez M.D. LAB BLOOD ADD-ON Performing Organization Address City/State/ZIP Code Phon e Number [facility]- [address] [place] [address] [place] [facility]- [address] [place], [place] [address] [place] [address] [place] [facility] documented in this encounter Visit Diagnoses Diagnosis Well Adult Examination Abnormal - Primar y Overweight Body Mass Index 25-29.9 Adult Bicuspid Aortic Valve (HCC) Constipation Slow Transit Dysmenorrhea Management Contraceptive Fatigue Screening Examination For Chlamydial Dis ease Screening Lipid Bicuspid Aortic Valve (HCC) Fatigue documented in this encounter Care Teams Beef Specialist Relationship Specialty Start Date End Date Chaparro Payan P.A.-C. PCP - General 02/05/[address] [place] [phone] documented as of this encounter
--- OUTSIDE RECORDS SUMMARY | 2022-03-01 04:10 | XMS_ITS | Encounter Summary ---
:2000 Author Organization [facility] Address [address] [place] [address] Care Team Providers Name Role Phone Chaparro Payan P.A.-C. Primary Care Provider [phone] Encounter Details Date Type Department Care Team Description 06/23/2020 Admin Visit Department of Family Medicine, [address] [address] [facility] [phone] Social History Tobacco Use Types Packs/Day Years [...] How often do you attend religion or scientology 1 to 4 times per [...] COVID19 Pending 06/23/2020 06/23/2020 06/24/2020 2:18 PM INTERMEDIATE DESIGNER Assessment Noted Time PHQ-9 Depression Total Score: 8 10/13/2017 12:58 PM CD T documented as of this encounter Care Teams Manager Home Improvement Relationship Specialty Start Date End Date Chaparro Payan P.A.-C. PCP - General 02/05/[address] [place] [phone] documented as of this encounter
--- OUTSIDE RECORDS SUMMARY | 2022-03-01 04:10 | XMS_ITS | Encounter Summary ---
:2000 Author Organization [facility] Address [address] [place] [address] Care Team Providers Name Role Phone Chaparro Payan P.A.-C. Primary Care Provider [phone] Encounter Details Date Type Department Care Team Description 02/20/2020 Orders Only [facility] MNT Chaparro Payan P.A.-C. [address] [place] [phone] (Wo rk) Social History [...] How often do you attend restorationist or alevism 1 to 4 times per [...] as of this encounter Care Teams Medical Observer Relationship Specialty Start Date End Date Chaparro Payan P.A.-C. PCP - General 02/05/[address] [place] [phone] documented as of this encounter
--- OUTSIDE RECORDS SUMMARY | 2022-03-01 04:10 | XMS_ITS | Encounter Summary ---
:2000 Author Organization [facility] Address [address] [place] [address] Care Team Providers Name Role Phone Chaparro Payan P.A.-C. Primary Care Provider [phone] Reason for Visit Reason Onset Date Comments Testing For Upper Respiratory Virus Symptoms 06/23/2020 Encounter Details Date Type Department Care Team Description 06/23/2020 External Outreach Department of Wood Guzman And Internal Medicine in [place], D.[place]ettie (Suspected) Exposure [place], [place] [address] [place] [address] To COVID-19 (Primary [address] [place], [place] Dx) [place] [phone] Social History Tobacco Use Types Packs/Day Years [...] Influenza, RSV, and/or Group A Strep testing. CH LIQUOR MAKER documented in this encounter Plan of Treatment Not on filedocumented as of this encounter Procedures Procedure Name Priority Date/Time Associated Diagnosis Comme nts SARS CORONAVIRUS-2 Routine 06/23/2020 1:35 PM Contact With And Results for this RNA, V BLEACH LIQUOR MAKER (Suspected) Exposure procedu re are in To COVID-19 the results section. documented in this encounter Results SARS Coronavirus-2 RNA, V Symptomatic (06/23/2020 1:35 PM BLEACH LIQUOR MAKER) [facility] Method Time Signature SARS-CoV-2 Swab, 06/24/2020 [facility] Specimen Nasopharynx 2:17 PM BLEACH LIQUOR MAKER Source SARS CoV-2 Undetected Undetected 06/24/2020 [facility] RNA, TMA 2:17 PM BLEACH LIQUOR MAKER Comment: SARS-CoV-2 RNA absent. This result does not rule out COVID-19 in the patient, as the sensitivity of the test depends o n the timing of the specimen collection and the quality of the specim en. Result should be correlated with patient's history and clinical presentat ion. ----ADDITIONAL INFORMATION---- This molecular amplification test was pe rformed using the Aptima SARS-CoV-2 assay ([employer] on the [employer] tem under emergency use authorization (EUA) by the U.S. Food and Drug Administ ration. Fact sheets for this EUA assay can be fo und at the following links: For Healthcare Providers: https://www.fd a.gov/media/855049/download For Patients: https://www.fda.gov/media/ 981044/download Specimen Anatomical Collection Method Collection Time Receive d Time (Source) Location / / Volume Laterality Varies 06/23/2020 1:35 PM 6:28 (Nasopharynx) BLEACH LIQUOR MAKER AM BLEACH LIQUOR MAKER Wood Guzman D.O. LAB MICROBIOLOGY - GENERAL O RDERABLES Performing Organization Address City/State/ZIP Code Phon e Number [facility]- [address] [place] [address] [place] [address] System in [place] [address] [place] [address] documented in this encounter Visit Diagnoses Diagnosis Contact With And (Suspected) Exposure To COVID-19 - Primary documented in this encounter Additional Health Concerns Infection Onset Date Last Indicated Resolved Time COVID19 Pending 06/23/2020 06/23/2020 06/24/2020 2:18 PM BLEACH LIQUOR MAKER Assessment Noted Time PHQ-9 Depression Total Score: 8 10/13/2017 12:58 PM CD T documented as of this encounter Care Teams Repairer Finished Metal Relationship Specialty Start Date End Date Chaparro Payan P.A.-C. PCP - General 02/05/[address] [place] [phone] documented as of this encounter
--- OUTSIDE RECORDS SUMMARY | 2022-03-01 04:10 | XMS_ITS | Encounter Summary ---
:2000 Author Organization [facility] Address [address] [place] [address] Care Team Providers Name Role Phone Chaparro Payan P.A.-C. Primary Care Provider [phone] Encounter Details Date Type Department Care Team Description 02/28/2021 Immunization Department of [facility] Reed Barillas For COVID-19 Medicine, Chandrakant Walls M.D. Vaccine Immunization Clinic, in [address] [address] [place], [place] [phone] (Work) [phone] Social History Tobacco Use Types Packs/Day Years [...] How often do you attend jewish or jew 1 to 4 times per year 08/02/2020 [...] documented as of this encounter Care Teams Avionics Installer Relationship Specialty Start Date End Date Chaparro Payan P.A.-C. PCP - General 02/05/[address] [place] [phone] documented as of this encounter
--- OUTSIDE RECORDS SUMMARY | 2022-03-01 04:10 | XMS_ITS | Encounter Summary ---
:2000 Author Organization [facility] Address [address] [place] [address] Care Team Providers Name Role Phone Chaparro Payan P.A.-C. Primary Care Provider [phone] Reason for Visit Reason Onset Date Comments Outpatient COVID-19 Testing 07/12/2020 Encounter Details Date Type Department Care Team Description 07/12/2020 External Outreach Department of Family Wood Guzman Contact With And Medicine, [facility] Abdulkadir Winter D.O. (Suspected) Exposure Building, in [address] To COVID-19 (Primary [place], [place] Dx) [address] [facility] [address] [place], [place] [phone] (Work) [phone] Social History Tobacco Use Types Packs/Day Years [...] How often do you attend episcopal or confucianism 1 to 4 times per [...] PM CST Encounter created for COVID-19 screening. POT TENDER documented in this encounter Plan of Treatment Not on filedocumented as of this encounter Procedures Procedure Name Priority Date/Time Associated Diagnosis Comme nts SARS CORONAVIRUS-2 Routine 07/12/2020 4:07 PM Contact With And Results for this RNA, V WAX POT TENDER (Suspected) Exposure procedu re are in To COVID-19 the results section. documented in this encounter Results SARS Coronavirus-2 RNA, V Asymptomatic (07/12/2020 4:07 PM WAX POT TENDER) [facility] Method Time Signature SARS-CoV-2 Swab, 07/13/2020 [facility] Specimen Nasopharynx 1:56 AM WAX POT TENDER Source SARS CoV-2 Undetected Undetected 07/13/2020 [facility] RNA, TMA 1:56 AM WAX POT TENDER Comment: SARS-CoV-2 RNA absent. This result does not rule out COVID-19 in the patient, as the sensitivity of the test depends o n the timing of the specimen collection and the quality of the specim en. Result should be correlated with patient's history and clinical presentat ion. ----ADDITIONAL INFORMATION---- This molecular amplification test was pe rformed using the Aptima SARS-CoV-2 assay ([employer] on the [employer]s tem under emergency use authorization (EUA) by the U.S. Food and Drug Administ ration. Fact sheets for this EUA assay can be fo und at the following links: For Healthcare Providers: https://www.fd a.gov/media/985861/download For Patients: https://www.fda.gov/media/ 835186/download Specimen Anatomical Collection Method Collection Time Receive d Time (Source) Location / / Volume Laterality Varies 07/12/2020 4:07 PM 02/12/202 1 8:44 (Nasopharynx) WAX POT TENDER PM WAX POT TENDER Wood Guzman D.O. LAB MICROBIOLOGY - GENERAL O JIMMY Performing Organization Address City/State/ZIP Code Phon e Number [facility]- [address] [place] [phone] [place] [address] [place] [address] [address] documented in this encounter Visit Diagnoses Diagnosis Contact With And (Suspected) Exposure To COVID-19 - Primary documented in this encounter Additional Health Concerns Infection Onset Date Last Indicated Resolved Time COVID19 Pending 07/12/2020 07/12/2020 07/13/2020 1:56 AM WAX POT TENDER Assessment Noted Time PHQ-9 Depression Total Score: 8 10/13/2017 12:58 PM CD T documented as of this encounter Care Teams Air Liaison And Special Staff Relationship Specialty Start Date End Date Chaparro Payan P.A.-C. PCP - General 02/05/[address] [place] [phone] documented as of this encounter
--- OUTSIDE RECORDS SUMMARY | 2022-03-01 04:10 | XMS_ITS | Encounter Summary ---
:2000 Author Organization [facility] Address [address] [place] [address] Care Team Providers Name Role Phone Chaparro Payan P.A.-C. Primary Care Provider [phone] Encounter Details Date Type Department Care Team Description 07/12/2020 Admin Visit Department of Family Medicine, [address] [address] [facility] [phone] Social History Tobacco Use Types Packs/Day Years [...] How often do you attend catholic or amish 1 to 4 times per [...] COVID19 Pending 07/12/2020 07/12/2020 07/13/2020 1:56 AM SUPERVISOR NEWSPAPER DELIVERIES Assessment Noted Time PHQ-9 Depression Total Score: 8 10/13/2017 12:58 PM CD T documented as of this encounter Care Teams Water Pump Installer Relationship Specialty Start Date End Date Chaparro Payan P.A.-C. PCP - General 02/05/[address] [place] [phone] documented as of this encounter
--- OUTSIDE RECORDS SUMMARY | 2022-03-01 04:10 | XMS_ITS | Encounter Summary ---
:2000 Author Organization [facility] Address [address] [place] [address] Care Team Providers Name Role Phone Chaparro Payan P.A.-C. Primary Care Provider [phone] Reason for Referral Outpatient (Routine) - Closed Specialty Diagnoses / Procedures Referred By Contact Refer red To Contact Family Medicine Chaparro Payan P. A.-C. [address] [address] Referral ID Status Reason Start Date Expiration Date Visits Requ ested Visits Authorized [id number] Closed 08/02/2020 08/02/2021 1 1 RANCE SOURCING MANAGER Reason for Visit Reason Comments Annual Exam No concerns at this time. Appointment Request (Routine) - Closed Specialty Diagnoses / Procedures Referred By Contact Refer red To Contact Family Medicine Referral ID Status Reason Start Date Expiration Date Visits Requ ested Visits Authorized [id number] Closed 07/26/2020 07/26/2021 1 1 Encounter Details Date Type Department Care Team Description 08/02/2020 Comprehensive Visit Department of Shadia Payan Aortic Valve (HCC) (Primary Dx); Chaparro Rock P.A.-C. General Medical Examination Adult; [facility], [address] [place] [address] Pap Smear Examination; in [place], [place] Screening For Venereal Disease; [place] [address] [phone] [place], [place] (Work) [address] Social History Tobacco Use [...] How often do you attend protestant or scientology 1 to 4 times per [...] Comments Blood Pressure 98/64 08/02/2020 2:23 PM ASSURANCE SOURCING MANAGER Pulse 84 08/02/2020 2:23 PM ASSURANCE SOURCING MANAGER Temperature 36.9 ??C (98.4 ??F) 08/02/2020 2:23 PM ASSURANCE SOURCING MANAGER Respiratory Rate 16 08/02/2020 2:23 PM ASSURANCE SOURCING MANAGER Oxygen Saturation - - Inhaled Oxygen Concentration - - Weight 88.5 kg (195 lb 1.7 oz) 08/02/2020 2:23 PM ASSURANCE SOURCING MANAGER Height 161.1 cm (5' 3.43) 08/02/2020 2:23 PM ASSURANCE SOURCING MANAGER Body Mass Index 34.1 08/02/2020 2:23 PM ASSURANCE SOURCING MANAGER documented in this encounter H&P Notes Chaparro [...] at a later date. Chaparro Payan P.A.-C. RANCE SOURCING MANAGER documented in this encounter Plan of Treatment Scheduled Referrals Name Type Priority Associated Diagnoses Order S [facility] Medicine Outpatient Referral Routine Expec sonal: office visit 08/02/2020 (clinic) (Approximate), Expires: 08/03/2023 documented as of this encounter Procedures Procedure Name Priority Date/Time Associated Diagnosis Comme nts CHLAMYDIA/GONORRHOE Routine 08/02/2020 3:32 PM Pap Smear Re sults for this AE AMPLIFIED RNA ASSURANCE SOURCING MANAGER Examination procedure are in Screening For the results Venereal Disease section. THINPREP SCREEN Routine 08/02/2020 3:30 PM Pap Smear Result s for this ASSURANCE SOURCING MANAGER Examination procedure are in Screening For the results Venereal Disease section. documented in this encounter Results Chlamydia / Gonorrhoeae Amplified RNA (08/02/2020 3:32 PM ASSURANCE SOURCING MANAGER) Patholo gist Method Time Signature Source Thin Prep 08/07/2020 DTL Vial, 5:29 PM ASSURANCE SOURCING MANAGER Cervix/Endoc ervix Chlamydia Negative Negative 08/07/2020 DTL trachomatis 5:29 PM ASSURANCE SOURCING MANAGER amplified RNA Source Thin Prep 08/07/2020 DTL Vial, 5:29 PM ASSURANCE SOURCING MANAGER Cervix/Endoc ervix Neisseria Negative Negative 08/07/2020 DTL gonorrhoeae 5:29 PM ASSURANCE SOURCING MANAGER amplified RNA Specimen Anatomical Collection Method Collection Time Receive d Time (Source) Location / / Volume Laterality Varies 08/02/2020 3:32 PM (Cervix/Endocerv ASSURANCE SOURCING MANAGER 10:15 AM CS T ix) Chaparro Payan P.A.-C. LAB MICROBIOLOGY - GENERAL O RDERABLES Performing Organization Address City/State/ZIP Code Phon e Number [facility] - [address] [place] [address] 05 [facility] [place] [address] [facility] 200 [facility] ThinPrep Screen (08/02/2020 3:30 PM ASSURANCE SOURCING MANAGER) Component Value Ref Test Analysis Performed Pathologis [...] AM tives CDT Report BRIAN Ward(ASCP) 08/13/2020 [facility] electronically I verify that I have [...] Laterality Varies 08/02/2020 3:30 PM 9:06 (Cervix/Endocerv ASSURANCE SOURCING MANAGER AM ASSURANCE SOURCING MANAGER ix) Narrative This result has an attachment that is no t available. Chaparro Payan P.A.-C. LAB PAP PATHDX ORDERABLES Performing Organization Address City/State/ZIP Code Phon e Number [facility]- [facility] [address] [place] [address] [facility] Cytology [address] [place] [address] documented in this encounter Visit Diagnoses Diagnosis Bicuspid Aortic Valve (HCC) - Primary General Medical Examination Adult Pap Smear Examination Screening For Venereal Disease [place] documented in this encounter Additional Health Concerns Assessment Noted Time PHQ-9 Depression Total Score: 8 10/13/2017 12:58 PM CD T documented as of this encounter Care Teams Medicine Technologist Relationship Specialty Start Date End Date Chaparro Payan P.A.-C. PCP - General 02/05/[address] [place] [phone] documented as of this encounter
--- OUTSIDE RECORDS SUMMARY | 2022-03-01 04:10 | XMS_ITS | Encounter Summary ---
:2000 Author Organization [facility] Address [address] [place] [address] Care Team Providers Name Role Phone Unavailable Primary Care Provider Unavailable Encounter Details Date Type Department Care Team Description 10/09/2016 Hospital Encounter HX FBCV FAMILYPRA Amrita Payan P.A.-C. [address] [place] [address] (Wo rk) Social History Tobacco Use [...] How often do you attend yazidi or zoroastrianism 1 to 4 times per [...] Payan P.A.-C. - 10/09/2016 3:04 PM CDT [id number] CHIEF COMPLAINT/REASON FOR VISIT Sore throat. HISTORY [...] PAYAN PA-C On: 10/12/2016 09:00 AM Source: [facility] MHSDOLBEYNONRADSYS Document Id: [id number] documented in this encounter Miscellaneous Notes Miscellaneous - Mikael Payan P.A.-C. - 10/09/2016 4:34 PM CDT Ambulatory Discharge Medication List [address] [id number] Visit Information Name: CITLALY HOLLAND [facility] Number: [id number] Current Date: 10/09/2016 16:34:51 Attending [...] PA-C Signed On:09-OCT-2016 16:34:49 Additional Information: Source: [facility] POWERCHART Document Id: [id number] Miscellaneous - Mikael Payan P.A.-C. - 10/09/2016 4:34 PM CDT Ambulatory Patient Summary [address] [id number] Visit Information Name: CITLALY HOLLAND [facility] Number: [id number] Current Date: 10/09/2016 16:34:51 Physicians [...] if you dont have one. Go to [email or web address] and click on Create Your Account. Then, follow the directions to complete the online form. Youll be asked for your [facility] number which you can find at the top of this document. Your Goals/Additional instructions: Source: [facility] POWERCHART Document Id: [id number] Miscellaneous - Roxana Hernandez L.PBettieNBettie - 10/09/2016 3:18 PM CDT Pediatric Formula Bottler Intake/History Pediatric Formula Bottler Intake/History Entered On: 10/09/2016 15:20 CDT Performed [...] Information Given By : Patient Languages : Tamazight Is Patient Female and 13-50 no hysterectomy [...] HERNANDEZ LPN - 10/09/2016 15:18 CDT [facility] P[facility] Document Id: [id number]!45 documented in this encounter Plan of [...] Strep A Screen (10/09/2016 3:30 PM CDT) [facility] AuthorBee Method Time Signature HXRapid Strep POWERCHART Confirmation [...] Strep A Screen (10/09/2016 3:30 PM CDT) [facility] AuthorBee Method Time Signature HXStrep A POWERCHART Screen [...]
--- OUTSIDE RECORDS SUMMARY | 2022-03-01 04:10 | XMS_ITS | Encounter Summary ---
:1998 Author Organization [facility] Address [address] [place] [address] Care Team Providers Name Role Phone Chaparro Payan P.A.-C. Primary Care Provider [phone] Reason for Referral Outpatient (Routine) - Closed Specialty Diagnoses / Procedures Referred By Contact Refer red To Contact Diagnoses Bicuspid Aortic Valve (HCC) Americo Bear M.D. [facility] Procedures Echo Transthoracic (TTE) - Adult Congenital [address] [place] [phone] Referral ID Status Reason Start Date Expiration Date Visits Requ ested Visits Authorized [id number] Closed 09/11/2021 09/11/2022 1 1 Reason for Visit Appointment Request (Routine) - Authorized Specialty Diagnoses / Procedures Referred By Contact Refer red To Contact Maternal and Diagnoses Bicuspid Aortic Valve (HCC) Abnormal Ultrasound [facility] Sonya Gilliland.NGurdeep [address] [place] [address] Referral ID Status Reason Start Date Expiration Date Visits V isits Requested Authorized [id number] Authorized 08/25/2021 08/25/2022 3 3 Encounter Details Date Type Department Care Team Description 09/16/2021 Routine Department of Americo Bear Bicuspid Aortic Valve Obstetrics and Silvio (HCC) (Primary Dx) Gynecology in [address] [place], [place] [address] [place] [phone] [place], [place] [phone] (Work) [phone] Social History Tobacco Use Types Packs/Day Years [...] How often do you attend restorationist or latter-day 1 to 4 times per year 08/02/2020 [...] COLOR AND DOPPLER (09/16/2021 1:54 PM CDT) [facility] Method Time Signature Ejection Fraction 64 [...] original. For the complete report, see the [employer] Documents. Final Impressions 1. Bicuspid aortic valve [...] documented as of this encounter Care Teams Stonecutter Assistant Relationship Specialty Start Date End Date Chaparro Payan P.A.-C. PCP - General 02/05/[address] [place] [phone] documented as of this encounter
--- OUTSIDE RECORDS SUMMARY | 2022-03-01 04:10 | XMS_ITS | Encounter Summary ---
:[address] Author Organization [facility] Address [address] [place] [address] Care Team Providers Name Role Phone Chevy, Miranda Guadalupe APRN C.N.P., M.S.N. Primary Care Pr ovider Reason for Visit Reason Comments Follow-up ER - [place] Encounter Details Date Type Department Care Team Description 10/13/2017 Office Visit Department of Family Chaparro Payan Bi cuspid Aortic Valve (HCC) (Primary Dx); Medicine, [facility], in [address] 300 [facility] [address] [place], [place] [phone] [address] (Work) [phone] Social History Tobacco Use Types Packs/Day Years [...] How often do you attend orthodoxy or alevism 1 to 4 times per [...] 10/13/2017 12:52 PM C DT Growth Chart: [facility] (Girls, 2-20 Years) documented in [...] bothering her. She works at a local [employer]. 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 [address] [place] [address] documented as of this encounter
--- OUTSIDE RECORDS SUMMARY | 2022-03-01 04:10 | XMS_ITS | Encounter Summary ---
:1998 Author Organization [facility] Address [address] [place] [address] Care Team Providers Name Role Phone Chaparro Payan P.A.-C. Primary Care Provider [phone] Reason for Visit Reason Comments Missed phone Encounter Details Date Type Department Care Team Description 09/10/2021 Clinical Communication Department of Americo Bear Mis sed phone Obstetrics and M.D. Gynecology in [address] [place] [address] [place] [phone] [place], [place] [phone] (Work) [phone] Social History Tobacco Use Types Packs/Day Years [...] How often do you attend baptism or caodaism 1 to 4 times per [...] / REASON FOR CALL Communication (Pre-visit intake) Director Industrial: no INFORMATION DISCUSSED Patient contacted for chart [...] documented as of this encounter Care Teams Communications Equipment Supervisor Relationship Specialty Start Date End Date Chaparro Payan P.A.-C. PCP - General 02/05/[address] [place] [phone] documented as of this encounter
--- OUTSIDE RECORDS SUMMARY | 2022-03-01 04:10 | XMS_ITS | Encounter Summary ---
:1998 Author Organization [facility] Address [address] [place] [address] Care Team Providers Name Role Phone Chaparro Payan P.A.-C. Primary Care Provider [phone] Reason for Visit Reason Onset Date Comments Left Without Being Seen 09/16/2021 Appointment Request (Routine) - Authorized Specialty Diagnoses / Procedures Referred By Contact Refer red To Contact Maternal and Diagnoses Bicuspid Aortic Valve (HCC) Abnormal Ultrasound Jay Kebede, [facility] Audra GillilandNGurdeep [address] [place] [address] Referral ID Status Reason Start Date Expiration Date Visits V isits Requested Authorized [id number] Authorized 08/25/2021 08/25/2022 3 3 Encounter Details Date Type Department Care Team Description 09/16/2021 Comprehensive Visit Department of Shelbi Tse Proce dure And Obstetrics and M.S., CGC Treatment Not Gynecology in [address] [place] [address] Carried Out Due To [place], [place] Patient Leaving [address] [place] [phone] Prior To Being Seen [place], [place] [phone] By [facility] [phone] (Work) Provider (Primary [phone] Dx) (Fax) Social History Tobacco Use Types [...] documented as of this encounter Care Teams S3B Multi Sensor Operator Relationship Specialty Start Date End Date Chapraro Payan P.A.-C. PCP - General 02/05/[address] [place] [phone] documented as of this encounter
--- OUTSIDE RECORDS SUMMARY | 2022-03-01 04:10 | XMS_ITS | Encounter Summary ---
:1998 Author Organization [facility] Address [address] [place] [address] Care Team Providers Name Role Phone Chaparro Payan P.A.-C. Primary Care Provider [phone] Reason for Referral Specialty Diagnoses / Procedures Referred By Contact Refer red To Contact [facility] Cli winnie [facility] Region 0 [place] [address] Referral ID Status Reason Start Date Expiration Date Visits Requ ested Visits Authorized Reason for Visit Appointment Request (Routine) - Closed Specialty Diagnoses / Procedures Referred By Contact Refer red To Contact Family Medicine Referral ID Status Reason Start Date Expiration Date Visits Requ ested Visits Authorized [id number] Closed 01/29/2021 01/29/2022 1 1 Encounter Details Date Type Department Care Team Description 02/07/2021 Immunization Department of [facility] er For COVID-19 Medicine, [place] Vaccine I mmunization Clinic, in [facility] (Primar y Dx) [place] [address] [place] [phone] Social History Tobacco Use Types Packs/Day [...] How often do you attend rastafarian or rastafarian 1 to 4 times per [...] as of this encounter Care Teams Hot Tamale Worker Relationship Specialty Start Date End Date Chaparro Payan P.A.-C. PCP - General 02/05/[address] [place] [phone] documented as of this encounter
--- OUTSIDE RECORDS SUMMARY | 2022-03-01 04:10 | XMS_ITS | Encounter Summary ---
:1998 Author Organization [facility] Address [address] [place] [address] Care Team Providers Name Role Phone Chaparro Payan P.A.-C. Primary Care Provider [phone] Reason for Referral Outpatient (Routine) - Closed Specialty Diagnoses / Procedures Referred By Contact Refer red To Contact Diagnoses Lesion Skin Chest Chaparro Payan P.A.-C. Procedures Lesion Excision and Closure [address] [place] [phone] Referral ID Status Reason Start Date Expiration Date Visits Requ ested Visits Authorized [id number] Closed 08/12/2020 08/12/2021 1 1 Reason for Visit Reason Comments Suspicious Skin Lesion R upper breast mole removal Outpatient (Routine) - Closed Specialty Diagnoses / Procedures Referred By Contact Refer red To Contact Family Medicine Chaparro Payan P. A.-C. [facility] [address] [place] [address] Referral ID Status Reason Start Date Expiration Date Visits Requ ested Visits Authorized [id number] Closed 08/02/2020 08/02/2021 1 1 Encounter Details Date Type Department Care Team Description 08/12/2020 Office Visit Department of Family Chaparro Payan Le sion Skin Chest Medicine [facility] (Primary Dx) Clinic, in [address] [address] [place] [phone] (Work) [phone] Social History Tobacco Use Types Packs/Day Years [...] How often do you attend voodoo or tenriism 1 to 4 times per [...] Component Value Ref Test Analysis Performed At [facility] Range Method Time Signature 08/14/2020 JULIO [...] [facility]/State/ZIP Code Phon e Number [facility]- [address] [place] [address] [place] [address] System in [address] Lesion Excision and Closure (08/12/2020 11:00 [...] documented as of this encounter Care Teams Trimmer Buffing Wheel Relationship Specialty Start Date End Date Chaparro Payan P.A.-C. PCP - General 02/05/18 [address] [place] [address] documented as of this encounter
--- OUTSIDE RECORDS SUMMARY | 2022-03-01 04:10 | XMS_ITS | Encounter Summary ---
:1998 Author Organization [facility] Address [address] [place] [address] Care Team Providers Name Role Phone Chaparro Payan P.A.-C. Primary Care Provider [phone] Reason for Visit Reason Onset Date Comments Outpatient COVID-19 Testing 03/27/2020 Encounter Details Date Type Department Care Team Description 03/27/2020 External Outreach Department of Wodo Guzman Infect ion Upper Internal Medicine in J, D.O. Respiratory (Primary [place], [place] [address] Dx) [address] [place] [phone] Social History Tobacco Use Types Packs/Day Years [...] often do you attend roman catholic or congregational 1 to 4 times per [...] RNA, V Symptomatic (03/28/2020 3:08 PM CDT) [facility] Method Time Signature SARS-CoV-2 Swab, 03/29/2020 [...] is performed using the Aptima SARS-CoV-2 assay ([employer] which has received Emergency Use Authori zation (EUA) by the U.S. Food and Drug Administration. Fact sheets for this Emergency Use Autho rization (EUA) assay can be found at the following links: For Healthcare Providers: https://www.fd a.gov/media/232284/download For Patients: https://www.fda.gov/media/ 207332/download Specimen Anatomical Collection Method Collection Time Receive d Time (Source) Location / / Volume Laterality Varies 03/28/2020 3:08 PM 0 1:47 (Nasopharynx) CDT AM CDT Wood Guzman D.O. LAB MICROBIOLOGY - GENERAL O RDERABROOKE Performing Organization Address City/State/ZIP Code Phon e Number [facility]- [facility] [place] [address] [place] [address] System in [place] [address] [place] [address] documented in this encounter Visit Diagnoses Diagnosis Infection Upper Respiratory - Primary documented in this encounter Additional Health Concerns Infection Onset Date Last Indicated Resolved Time COVID19 Pending 03/27/2020 03/28/2020 03/29/2020 10:23 PM CDT Assessment Noted Time PHQ-9 Depression Total Score: 8 10/13/2017 12:58 PM CD T documented as of this encounter Care Teams Talent Acquisition Sourcer Relationship Specialty Start Date End Date Chaparro Payan P.A.-C. PCP - General 02/05/18 [address] [place] [phone] documented as of this encounter
--- OUTSIDE RECORDS SUMMARY | 2022-03-01 04:10 | XMS_ITS | Encounter Summary ---
:1998 Author Organization [facility] Address [address] [place] [address] Care Team Providers Name Role Phone Chevy, Miranda Guadalupe APRN C.N.P., M.S.N. Primary Care Pr ovider Reason for Visit Reason Comments New Patient Outpatient (Routine) - Closed Specialty Diagnoses / Referred By Contact Referred To Contact Procedures Cardiovascular Diseases / Diagnoses Bicuspid Aortic Valve (HCC) Phyllis Ramírez, [facility] Region Cardiovascular Disease M.DBettie [address] [place] [address] Referral ID Status Reason Start Date Expiration Date Visits Requ ested Visits Authorized [id number] Closed 11/03/2017 11/03/2018 1 1 Encounter Details Date Type Department Care Team Description 11/17/2017 Comprehensive Visit Department of Rene Minor Aortic Cardiovascular TSilvio, M.P.H. Valve (HCC) Diseases in [address] [place] [address] 300 [facility] [address] [place], [place] [phone] (Work) [phone] Social History Tobacco Use Types Packs/Day Years [...] 08/02/2020 relatives? How often do you attend yarsani or temple 1 to 4 times per year 08/02/2020 services? Do you belong to any clubs or organizations such No 08/02/2020 as yarsani groups, unions, fraternal or athletic groups, or [...] documented as of this encounter Care Teams Supervisor Assembly Relationship Specialty Start Date End Date Miranda Reece APRN, C.N.P., PCP - General 02/04/18 M.S.N. [address] [place] [address] documented as of this encounter
--- OUTSIDE RECORDS SUMMARY | 2022-03-01 04:10 | XMS_ITS | Encounter Summary ---
:1998 Author Organization [facility] Address [address] [place] [address] Care Team Providers Name Role Phone Chaparro Payan P.A.-C. Primary Care Provider [phone] Reason for Visit Reason Onset Date Comments Outpatient COVID-19 Testing 02/28/2020 Encounter Details Date Type Department Care Team Description 02/28/2020 External Outreach Urgent Care in [place], [place] Charley [facility] ([place] [address] [facility] [address] Dx) DR Génesis [facility], [place] [phone] [phone] Social History Tobacco Use Types Packs/Day Years [...] How often do you attend alevism or orthodoxy 1 to 4 times per [...] RNA, V Symptomatic (02/28/2020 12:06 PM CDT) [facility] Method Time Signature SARS-CoV-2 Swab, 02/29/2020 MKTO [...] is performed using the Aptima SARS-CoV-2 assay ([employer] which has received Emergency Use Authori zation (EUA) by the U.S. Food and Drug Administration. Fact sheets for this Emergency Use Autho rization (EUA) assay can be found at the following links: For Healthcare Providers: https://www.fd a.gov/media/467056/download For Patients: https://www.fda.gov/media/ 003391/download Specimen Anatomical Collection Method Collection Time Receive d Time (Source) Location / / Volume Laterality Varies 02/28/2020 12:06 02/28/2020 7:35 (Nasopharynx) PM CDT PM CDT Kee Kemp P.A.-C. LAB MICROBIOLOGY - GENERAL O JIMMY Performing Organization Address City/State/ZIP Code Phon e Number [facility] [place] [address] [place] [address] System in [place] [address] [place] [address] documented in this encounter Visit Diagnoses Diagnosis Infection Upper Respiratory - Primary documented in this encounter Additional Health Concerns Infection Onset Date Last Indicated Resolved Time COVID19 Pending 02/28/2020 02/28/2020 02/29/2020 4:25 AM CDT Assessment Noted Time PHQ-9 Depression Total Score: 8 10/13/2017 12:58 PM CD T documented as of this encounter Care Teams Thread Marker Relationship Specialty Start Date End Date Chaparro Payan P.A.-C. PCP - General 02/05/18 [address] [place] [address] documented as of this encounter
--- OUTSIDE RECORDS SUMMARY | 2022-03-01 04:10 | XMS_ITS | Encounter Summary ---
:2000 Author Organization [facility] Address [address] [place] [address] Care Team Providers Name Role Phone Chevy, Miranda Guadalupe APRN C.N.P., M.S.N. Primary Care Pr ovider Encounter Details Date Type Department Care Team Description 10/13/2017 Hospital Encounter Department of Radiology Amrita Payan, Pain Back in [facility] PBettieAEnoch [address] [facility] [address] [place] [address] [place], [place] [phone] (Wo rk) Social History Tobacco Use [...] 08/02/2020 relatives? How often do you attend lutheran or taoism 1 to 4 times per year 08/02/2020 services? Do you belong to any clubs or organizations such No 08/02/2020 as lutheran groups, unions, fraternal or athletic groups, or [...] documented as of this encounter Care Teams Time Motion Analyst Relationship Specialty Start Date End Date Reece, Miranda Guadalupe APRN, C.N.P., PCP - General 02/04/18 M.S.N. [address] [place] [address] documented as of this encounter
--- OUTSIDE RECORDS SUMMARY | 2022-03-01 04:10 | XMS_ITS | Encounter Summary ---
:2000 Author Organization [facility] Address [address] [place] [address] Care Team Providers Name Role Phone Unavailable Primary Care Provider Unavailable Encounter Details Date Type Department Care Team Description 10/09/2016 Hospital Encounter HX NO MAPPING Casper Payan P.A.-C. [address] [place] [address] (Wo rk) Social History Tobacco Use [...] How often do you attend scientologist or synagogue 1 to 4 times per [...] Coding Summary-Paper Based CODING DATE: 10/20/2016 FINAL [facility] STATUS: * Discharged to Home or Self [...] HOLLY Date Saved: 10/20/2016 01:24 pm Source: [facility] Document Id: [id number] documented in this encounter Plan of Treatment Not on filedocumented as of this encounter Visit Diagnoses Not on filedocumented in this encounter
--- OUTSIDE RECORDS SUMMARY | 2022-03-01 04:10 | XMS_ITS | Encounter Summary ---
:[address] [facility] Address [address] [place] [address] Care Team Providers Name Role Phone Chaparro Payan P.A.-C. Primary Care Provider [phone] Reason for Visit Reason Comments COVID Inquiry Encounter Details Date Type Department Care Team Description 06/23/2020 Clinical Communication [facility] [place] V[facility] Inquiry Cardiovascular Surgery Provider in [place], [place] [address] [place] [address] Social History Tobacco Use Types [...] How often do you attend taoism or adventist 1 to 4 times per [...] LABORATORY CONFIRMED case ofCOVID-19?: Yes exposure noted. [place] patient, instruct to quarantine, testing indicated (End Screening) Testing Recommendation Endpoint Is testing recommended? : Recommended to test Plan: Endpoint recommendation: Testing indicated, advised to be swabbed for COVID-19 Only , sent to [facility] located at [address] [place] [address]. The entrance is on the north side of the building. You must call [phone] for an appointment time.Testing hours are Daily [...] sending patient for testing in [facility] or [facility], route encounter to the correct testing pool. ICAL ADMINISTRATOR documented in this encounter Plan of Treatment Not on filedocumented as of this encounter Visit Diagnoses Not on filedocumented in this encounter Additional Health Concerns Infection Onset Date Last Indicated Resolved Time COVID19 Pending 06/23/2020 06/23/2020 06/24/2020 2:18 PM CLERICAL ADMINISTRATOR Assessment Noted Time PHQ-9 Depression Total Score: 8 10/13/2017 12:58 PM CD T documented as of this encounter Care Teams Tipping Machine Operator Automatic Relationship Specialty Start Date End Date Chaparro Payan P.A.-C. PCP - General 02/05/[address] [place] [phone] documented as of this encounter
--- OUTSIDE RECORDS SUMMARY | 2022-03-01 04:10 | XMS_ITS | Encounter Summary ---
:2000 Author Organization [facility] Address [address] [place] [address] Care Team Providers Name Role Phone Chevy, Miranda Guadalupe APRN C.N.PBettie, M.S.N. Primary Care Pr ovider Reason for Referral Outpatient (Routine) - Closed Specialty Diagnoses / Procedures Referred By Contact Refer red To Contact Diagnoses Bicuspid Aortic Valve (HCC) Fatigue par review Phyllis Ramírez M.D. [facility] [place] [facility] Procedures Echo Transthoracic (TTE) TN ECHO TTE 2D W DPLR COMPLETE CVD ECHO [address] [place] [address] Referral ID Status Reason Start Date Expiration Date Visits Requ ested Visits Authorized [id number] Closed 09/03/2017 03/02/2018 1 1 Reason for Visit Outpatient (Routine) - Closed Specialty Diagnoses / Procedures Referred By Contact Refer red To Contact Diagnoses Bicuspid Aortic Valve (HCC) Fatigue par review Phyllis Ramírez M.D. [facility] [place] [facility] Procedures Echo Transthoracic (TTE) TN ECHO TTE 2D W DPLR COMPLETE CVD ECHO [address] [place] [address] Referral ID Status Reason Start Date Expiration Date Visits Requ ested Visits Authorized [id number] Closed 09/03/2017 03/02/2018 1 1 Encounter Details Date Type Department Care Team Description 11/02/2017 Hospital Encounter Department of Phyllis Ramírez Aortic Valve (HCC); Cardiovascular Diseases Silvio Winter Fatigue in [place] Frausto [address] [facility] [address] [place], [place] SWEETIE FRAUSTO [phone] Social History Tobacco Use Types Packs/Day Years [...] often do you attend oriental orthodox or faith 1 to 4 times per [...] ECHO DOPPLER COLOR (11/02/2017 8:41 AM CDT) [facility] Method Time Signature Ejection Fraction 59 [...] documented as of this encounter Care Teams Carbon Paste Mixer Operator Relationship Specialty Start Date End Date Reece, Miranda Guadalupe APRN, C.N.P., PCP - General 02/04/18 M.S.N. [address] [place] [phone] documented as of this encounter
--- OUTSIDE RECORDS SUMMARY | 2022-03-01 04:10 | XMS_ITS | Encounter Summary ---
:1998 Author Organization [facility] Address [address] [place] [address] Care Team Providers Name Role Phone Chaparro Payan P.A.-C. Primary Care Provider [phone] Reason for Visit Reason Comments COVID Inquiry Encounter Details Date Type Department Care Team Description 07/12/2020 Clinical Communication Department of KATHIE Sewell [facility] Han[facility], [address] [address] [place], [place] [phone] (Work) [phone] Social History Tobacco Use Types Packs/Day Years [...] How often do you attend evangelical or mandaen 1 to 4 times per year 08/02/2020 [...] LABORATORY CONFIRMED case ofCOVID-19?: Yes exposure noted. [place] patient, instruct to quarantine, testing indicated (End Screening) Testing Recommendation Endpoint Is testing recommended? : Recommended to test Plan: Endpoint recommendation: Testing indicated, advised to be swabbed for COVID-19 Only , sent to [facility] located at [address] [place] [address]. The entrance is on the north side of the building. You must call [phone] during the hours of 7am to 6 [...] sending patient for testing in T or [facility], route encounter to the correct testing pool. ROOM TABLE ATTENDANT documented in this encounter Plan of Treatment Not on filedocumented as of this encounter Visit Diagnoses Not on filedocumented in this encounter Additional Health Concerns Assessment Noted Time PHQ-9 Depression Total Score: 8 10/13/2017 12:58 PM CD T documented as of this encounter Care Teams Official Greeter Relationship Specialty Start Date End Date Chaparro Payan P.A.-C. PCP - General 02/05/[address] [place] [phone] documented as of this encounter
--- OUTSIDE RECORDS SUMMARY | 2022-03-01 04:11 | XMS_ITS | Encounter Summary ---
:1998 Author Organization [facility] Address [address] [place] [address] Care Team Providers Name Role Phone Unavailable [...] How often do you attend muslim or roman catholic 1 to 4 times [...] Electronically signed by: ?? Yoli Hickman MD. ??[id number] 1998 15:04 Procedure Note Cecily Hickman M.D. [...] 1998 12:29:00 ETT with tip at the daivd. Moderate aissatou ateral granular infiltrates most prominent [...] AM 9 5:11 CDT PM CDT Narrative [facility] - 1998 9:09 AM CDT 1998 ?[id number] ?Ro ?09:09 ?? Subsq Order for NB: ?Blood Component ?R BC, Irradiated Leukoreduced ?CPDA-1, Divided ?Transfused ? 28 Jan 1999 ?Unit Number Id ? [id number] Procedure Note 09/15/2017 1998 [id number] Ro 09:09 Subsq Order for NB: Blood Component RBC, Irradiated Leukore duced CPDA-1, Divided Transfused 28 Jan 1999 Unit Number Id [id number] Historical Provider LAB HISTORICAL ORDERS Performing Organization Address City/State/ZIP Code Phon e Number [facility] - [address] [place] [id number] [facility] Prepare Red Blood Cells (1998 9:08 AM CDT) Specimen Anatomical Collection Method Collection Time Receive d Time (Source) Location / / Volume Laterality 1998 9:08 AM 9 2:17 CDT PM CDT Narrative [facility] - 1998 9:08 AM CDT 1998 ?[id number] ?Ro ?09:08 ?? RBC TRF Order: ?ABO/RH ? O POS ?Antibody Screen ?N eg Procedure Note 09/15/2017 1998 [id number] Ro 09:08 RBC TRF Order: ABO/RH O POS Antibody Screen Neg Historical Provider BLOOD BANK PRODUCT ORDERABLE S Performing Organization Address [facility] Phon e Number [facility] - [address] ABORh, RBC (1998 9:08 AM CDT) Specimen Anatomical Collection Method Collection Time Receive d Time (Source) Location / / Volume Laterality 1998 9:08 AM 9 9:54 CDT AM CDT Narrative [facility] - 1998 9:08 AM CDT 1998 ?[id number] ?Ro ?09:08 ?? ABO and Rh Order (2): ?ABO/RH ? O POS Procedure Note 09/15/2017 1998 [id number] Ro 09:08 ABO and Rh Order (2): ABO/RH O POS Historical Provider LAB BLOOD BANK TEST ORDERABL ES Performing Organization Address [facility] Code Phon e Number [facility] - [address] DX Chest and Abdomen Portable 1 [...]
--- OUTSIDE RECORDS SUMMARY | 2022-03-01 04:11 | XMS_ITS | Encounter Summary ---
:1998 Author Organization [facility] Address [address] [place] [address] Care Team Providers Name Role Phone Unavailable Primary Care Provider Unavailable Encounter Details Date Type Department Care Team Description 04/30/2015 Hospital Encounter HX NO MAPPING Miranda Reece APRN, C.N.P., M. S.N. [address] [place], [place] [phone] (Wo rk) Social History [...] often do you attend oriental orthodox or muslim 1 to 4 times per [...] Historical Provider Ser - 04/30/2015 11:59 PM REIMBURSEMENT ANALYST Coding Summary-Paper Based CODING DATE: 05/13/2015 FINAL [facility] STATUS: * Discharged to Home or Self [...] HOLLY Date Saved: 05/13/2015 10:25 am Source: [facility] Document Id: [id number] documented in this encounter Plan of Treatment Not on filedocumented as of this encounter Visit Diagnoses Not on filedocumented in this encounter
--- OUTSIDE RECORDS SUMMARY | 2022-03-01 04:11 | XMS_ITS | Encounter Summary ---
:1998 Author Organization [facility] Address [address] [place] [address] Care Team Providers Name Role Phone Unavailable Primary Care Provider Unavailable Encounter Details Date Type Department Care Team Description 01/26/2013 Hospital Encounter HX [facility] Elmo Kitchen, BEL, C.N.P., D. N.P. [address] [place], [place] [address] (Wo rk) Social History [...] How often do you attend zoroastrian or hinduism 1 to 4 times per [...] % 01/26/2013 10:42 AM CDT Growth Chart: [facility] (Girls, 2-20 Years) documented in this encounter H&P Notes Lisa Kitchen APRN, C.N.P. - 01/26/2013 10:25 AM CDT [id number] CHIEF COMPLAINT/REASON FOR VISIT Well-child exam and sports physical. HISTORY OF PRESENT ILLNESS The patient is a 12-year-old female who presents for her 12-year-old well-child exam. Patient was last seen by me for her 10-year-old well-child exam. Patient lives at home with her mom, dad, one brother, one sister and one cousin. She does speak Sami in their home. Patient does wear glasses [...] ALLERGIES See EMR. SYSTEMS REVIEW Please see [facility] 11 to 14-year-old clinic visit sheet scanned into EMR for complete details. PAST MEDICAL/SURGICAL HISTORY Unchanged see EMR. SOCIAL HISTORY Patient lives at home with her mom, dad, brother, one sister and cousin. Denies tobacco, alcohol anddrug use. Patient is not sexually active. FAMILY HISTORY Unchanged see EMR. VITAL SIGNS See EMR. PHYSICAL EXAMINATION Please see scanned-in [facility] 11 to 14-year-old clinic visit sheet and [id number] sports qualifying physical examination clearance form as [...] CRANDALL CNP On: 02/13/2013 08:43 AM Source: [facility]SDOLBEYNON[facility]SYS Document Id: [id number] documented in this encounter Procedure Notes Conversion, [...] CDT KIRSTEN HUYNH 01/26/2013 11:23 CDT Source: [employer] Document Id: [id number] CDT!5 Conversion, Historical Provider Ser - 01/26/2013 [...] KIRSTEN HUYNH - 01/26/2013 11:39 CDT Source: [employer] Document Id: [id number] CDT!5 documented in this encounter Miscellaneous Notes Miscellaneous - Lisa Kitchen APRN, CBettieN.PBettie - 01/26/2013 5:17 PM CDT Ambulatory Patient Summary [address] [address] Visit Information Name: CITLALY HOLLAND [facility] Number: [id number] Current Date: 01/26/2013 [...] No Appointments found Your Goals/Additional instructions: Source: [facility] Document Id: [id number] Miscellaneous - Lisa Kitchen APRN, C.N.P. - 01/26/2013 5:17 PM CDT Ambulatory Depart Summary [address] [address] Visit Information Name: CITLALY HOLLAND [facility] Number: [id number] Visit Date: 01/26/2013 [...] your provider for clarification. Additional Information: Source: [employer] Document Id: [id number] Miscellaneous - Conversion, Historical Provider Ser - 01/26/2013 10:42 AM CDT Pediatric Lathe Set Up Operator Intake/History Pediatric Lathe Set Up Operator Intake/History Entered On: 01/26/2013 10:43 CDT Performed [...] Information Given By : Patient Languages : Urdu KIRSTEN HUYNH - 01/26/2013 10:42 CDT Subjective [...] None KIRSTEN HUYNH 01/26/2013 10:42 CDT Source: [facility] [employer]OWER[employer]ART Document Id: [id number] CDT!40 documented in this encounter Plan of Treatment Not on filedocumented as of this encounter Visit Diagnoses Not on filedocumented in this encounter
--- OUTSIDE RECORDS SUMMARY | 2022-03-01 04:11 | XMS_ITS | Encounter Summary ---
:1998 Author Organization [facility] Address [address] [place] [address] Care Team Providers Name Role Phone Unavailable Primary Care Provider Unavailable Encounter Details Date Type Department Care Team Description 01/30/2011 Hospital Encounter HX [facility] Elmo Kitchen, BEL, C.N.P., D. N.P. [address] [place], [place] [address] (Wo rk) Social History [...] PM CD T Growth Chart: [facility] (Girls, 2-20 Years) documented in this encounter Progress Notes Lisa Kitchen APRN, C.N.P. - 01/30/2011 12:00 AM CDT [id number] CHIEF COMPLAINT / REASON FOR VISIT 10 [...] dad and patient as documented on the [facility] clinic visit sheet which will [...] CRANDALL CNP On: 02/06/2011 02:26 pm Source: [facility] MHSDOLBEYNONRADSYS Document Id: [id number] documented in this encounter Procedure Notes Conversion, Historical Provider Ser - 01/30/2011 1:23 PM CDT Vision Testing Vision Testing Entered On: 01/30/2011 13:25 CDT Performed On: 01/30/2011 13:23 CDT by CHARO TENORIO Vision Testing Corrective Lenses: Glasses Eye, Right w/o Correction: 20/80 Eye, Left w/o Correction: 20/50 CHARO TENORIO - 01/30/2011 13:23 CDT Source: [facility] [employer] Document Id: [id number] CDT!5 documented in this encounter Miscellaneous Notes Miscellaneous - Lisa Kitchen APRN, C.N.P. - 01/30/2011 3:09 PM CDT Ambulatory Patient Summary [address] [address] Visit Information Name: CITLALY HOLLAND [...] No Appointments found Your Goals/Additional instructions: Source: [employer] Document Id: [id number] Electronically signed by Conversion, [facility] Metal Trades Instructor [id number] at 11/01/2016 2:47 PM CDT Miscellaneous - Lisa Kitchen, BEL, C.N.P. - 01/30/2011 3:09 PM CDT [place] [address] Visit Information Name: CITLALY HOLLAND Current Date: [...] to the patient and/or family, guardian/caregiver. Source: [employer] Document Id: [id number] Miscellaneous - Conversion, Historical Provider Ser - 01/30/2011 1:23 PM CDT Pediatric Food Consultant Intake/History Document Has Been Updated Pediatric Food Consultant Intake/History Entered On: 01/30/2011 13:24 CDT Performed [...] ; Reviewed Date: 01/30/2011 13:27 CDT Source: [facility] POWERCHART Document Id: [id number] CDT!3 documented in this encounter Plan of Treatment Not on filedocumented as of this encounter Visit Diagnoses Not on filedocumented in this encounter
--- OUTSIDE RECORDS SUMMARY | 2022-03-01 04:11 | XMS_ITS | Encounter Summary ---
:2000 Author Organization [facility] Address [address] [place] [address] Care Team Providers Name Role Phone Unavailable Primary Care Provider Unavailable Encounter Details Date Type Department Care Team Description 02/18/2011 Hospital Encounter HX [facility] Elmo Kitchen, BEL, C.N.P., D. N.P. [address] [place], [place] [address] (Wo rk) Social History [...] How often do you attend lutheran or hinduism 1 to 4 times per [...]
--- OUTSIDE RECORDS SUMMARY | 2022-03-01 04:11 | XMS_ITS | Encounter Summary ---
:1998 Author Organization [facility] Address [address] [place] [address] Care Team Providers Name Role Phone Unavailable [...] How often do you attend restorationism or pentecostalism 1 to 4 times per [...] ??Exam: US Cranial Pediatrics Indications: *PORTABLE*HEAD-FOLLOW UP ?[id number] ORIGINAL REPORT - 05-Feb-1999 17:40:00 The brain [...] Cranial Pe diatrics Indications: *PORTABLE*HEAD-FOLLOW UP [id number] ORIGINAL REPORT - 05-Feb-1999 17:40:00 The brain [...] Robert GONZALEZ DIAGNOSTIC IMAGING PROCE [facility] general Pathology Report (01/29/1999 1:49 PM CDT) Specimen Anatomical Collection Method Collection Time Receive d Time (Source) Location / / Volume Laterality 01/29/1999 1:49 PM 9 1:49 CDT PM CDT Narrative [facility] - 01/29/1999 1:49 PM CDT [id number] Surgical Pathology Requested By: ? Ruben park M.D. ?([id number]) ?? TISSUE DESCRIPTION: ?? Distal ostomy (2.5 cm with ellipse o f skin) and proximal ostomy (5.2 cm in length) ?? [id number] A1, A2 ?? DIAGNOSIS: ?? Distal ostomy, excision: ??Benign sq uamous epithelium and colonic-type mucosa with mild chronic ?? inflammation. ?? Proximal ostomy, excision: ??Benign small bowel mucosa. ?? 29Jan1999 ?Erik TaverasS.:dam Procedure Note 08/20/2017 29Jan1999 Surgical Pathology Requested By: Ruben Shipley M.D. ([id number]) TISSUE DESCRIPTION: Distal ostomy (2.5 cm with ellipse of s kin) and proximal ostomy (5.2 cm in length) [id number] A1, A2 DIAGNOSIS: Distal ostomy, excision: Benign squamou s epithelium and colonic-type mucosa with mild chronic inflammation. Proximal ostomy, excision: Benign small bowel mucosa. 29Jan1999 Erik TaverasS.:suze toney Ruben Shipley M.D. LAB PATHOLOGY/CYTOLOGY ORDER TAYLOR Performing Organization Address City/State/ZIP Code Phon e Number [facility] - [address] Upper GI Double Contrast Without KUB [...] stomach. Electronically signed by: John Cassidy MD [phone] 28-Jan-1999 11:0 5 Hernan Maza M.D. IMLucía DIAGNOSTIC IMAGING PROCE [facility] Small Bowel (01/27/1999 2:36 PM CDT) [...] Electronically signed by: ?? Yoli Hickman MD. ??[phone] 27-Jan-1999 15:14 Procedure Note Cecily Hickman M.D. [...] pneumotosis. Electronically signed by: Yoli Hickman MD. [phone] 27-Jan-1999 1 5:14 Robert Nick M.D. IMLucía [...] pneumotosis. Electronically signed by: Yoli Hickman MD. [phone] 27-Jan-1999 1 5:14 Robert Nick M.D. IMLucía [...] or co arctation. 2-D COMMENT: ??TAPE NUMBER: [id number]/09:45-34:40 ?Complete two-dimensional, color flow, and Doppler echocardiography [...] SYSTOLIC VALVE AREAS - ROUTIN E - [place] VALVE ? LVOT velocity (V1) ? 0.1 [...] Hg ? Narrative 01/23/1999 12:00 AM CDT [id number] ??ECHO ?FINAL REPORT ?? REPORT DATE: 23Jan1999 REFERRING MD: ??NICU ?RESPONSIBLE MD: ??Travis PBettie Mancera [phone] PROCEDURE TYPES: ?? 2-D, Doppler Video, and Color Flow. REFERRAL DIAGNOSIS: ?? Cardiomyopathy. ??Pediatric congenit al heart disease. HEMODYNAMICS: ?? Heart rate 151 BPM. ?? BP=44/31 FINAL Procedure Note Provider, Historical - 08/31/2017Formatt ing of this note might be different from the original. [id number] ECHO FINAL REPORT REPORT DATE: 23Jan1999 REFERRING MD: NICU RESPONSIBLE MD: Jermaine Farrell [phone] PROCEDURE TYPES: 2-D, Doppler Video, and Color [...] arteriosus or coarctation. 2-D COMMENT: TAPE NUMBER: [id number]/09:45-34:40 Complete two-dimensional, color flow, a nd Doppler [...] AORTIC SYSTOLIC VALVE AREAS - ROUTINE - [place] VALVE LVOT velocity (V1) 0.1 m/sec Peak Aortic velocity (V2) 0.4 * m/sec 0 .5-1.8 Peak Aortic time monique int(TVI2) 29.0 cm V1/V2 ratio 0.25 LVOT diameter 0.5 cm Valve area (by velocity) 0.05 cm2 Peak velocity obtained from apex TRICUSPID SYSTOLIC - ROUTINE - [place] V ALVE Peak velocity 2.2 m/sec Maximal [...] Electronically signed by: ?? John ??Khanh MICHAEL ??[id number] 07-Jan-1999 13:50 Procedure Note Kaye Cassidy M.D. [...] 100.120 Electronically signed by: John Cassidy MD [phone] 07-Jan-1999 13:5 0 Robert Nick M.D. IMG US PROCEDURES HX SUBSEQ ORDER FOR NB? (01/03/1999 12:31 PM CDT) Specimen Anatomical Collection Method Collection Time Receive d Time (Source) Location / / Volume Laterality 01/03/1999 12:31 01/12/1999 1:14 PM CDT AM CDT Narrative [facility] - 01/03/1999 12:31 PM CDT 03 Jan 1999 ?[id number] ?Ro ?12:31 ?? Subsq Order for NB: ?Blood Component ?R BC, Irradiated Leukoreduced ?CPDA-1, Divided ?Transfused ? 04 Jan 1999 ?Unit Number Id ? [id number] Procedure Note 09/15/2017 03 Jan 1999 [id number] Ro 12:31 Subsq Order for NB: Blood Component RBC, Irradiated Leukore duced CPDA-1, Divided Transfused 04 Jan 1999 Unit Number Id [id number] Historical Provider LAB HISTORICAL ORDERS Performing Organization Address City/State/ZIP Code Phon e Number [facility] - [address] [place], [place] [address] [facility] DX Chest and Abdomen Portable 1 View [...] RLQ. Electronically signed by: John Cassidy MD [id number] 02-Jan-1999 07:3 6 Braulio Franco M.D. IMG DIAGNOSTIC IMAGING [facility] Infant Chest and Abdomen Portable 1 [...] Electronically signed by: ?? Yoli Hickman MD. ??[phone] 01-Jan-1999 10:59 Procedure Note Cecily Hickman M.D. [...] RLQ. Electronically signed by: Yoli Hickman MD. [phone] 1 0:02 Braulio Franco M.D. IMG [...] Dave Fields Ph.D. IM[facility]ST[facility] Chest Portable 1 View (1998 [...] abdomen. Electronically signed by: ?? B.R. Bullernestina ??[phone] ([id number]) 1998 07:35 I have reviewed the films/images and agr ee with the above interpretation. Electronically signed by: ?? Yoli Hickman MD. ??[phone] 08:58 Procedure Note Cecily Hickman M.D. [...] the abdomen. Electronically signed by: Esequiel Velasco [phone] ([id number]) 1998 07 :35 I have reviewed the films/images and agr ee with the above interpretation. Electronically signed by: Yoli Hickman MD. [phone] 0 8:58 Braulio Franco M.D. IMG [...] ?? Electronically signed by: ?? Esequiel Velasco ??[phone] ([id number]) 1998 00:24 I have reviewed the [...] of bowel. Electronically signed by: Esequiel Velasco [phone] ([id number]) 1998 00 :24 I have reviewed the films/images and agr ee with the above interpretation. Electronically signed by: Yoli Hickman MD. [phone] 1 5:39 Robert Nick M.D. IMLucía DIAGNOSTIC IMAGING [facility] DX Infant Chest and Abdomen Portable [...] catheter. Electronically signed by: ?? Esequiel Velasco ??[phone] ([id number]) 1998 22:14 I have reviewed the films/images [...] Ball catheter. Electronically signed by: Esequiel Velasco [phone] ([id number]) 1998 22 :14 I have reviewed the films/images and agr ee with the above interpretation. Electronically signed by: Yoli Hickman MD. [phone] 1 5:44 Robert Nick M.D. IMLucía DIAGNOSTIC IMAGING PROCE [employer] DX Infant Chest and Abdomen Portable 1 [...] air. Electronically signed by: ?? Esequiel Velasco ??[phone] ([id number]) 1998 07:25 I have reviewed the films/images [...] free air. Electronically signed by: Esequiel Velasco [phone] ([id number]) 1998 07 :25 I have reviewed the films/images and agr ee with the above interpretation. Electronically signed by: Yoli Hickman MD. [phone] 0 9:26 Braulio GONZALEZ DIAGNOSTIC IMAGING [facility] DX Chest Portable 1 View (1998 [...] [facility] 1998 8:47 AM CDT 1998 ?[id number] ?Ro ?08:47 ?? Subsq Order for NB: ?Blood Component ?R BC, Irradiated Leukoreduced ?CPDA-1, Divided ?Transfused ? 1998 ?Unit Number Id ? [id number] Procedure Note 09/15/2017 1998 [id number] Ro 08:47 Subsq Order for NB: Blood Component RBC, Irradiated Leukore duced CPDA-1, Divided Transfused 1998 Unit Number Id [id number] Historical Provider LAB HISTORICAL ORDERS Performing Organization Address City/State/ZIP Code Phon e Number [facility] - [address] [place], [place] [address] [facility] DX Chest and Abdomen Portable 1 View [...] ?[id number] 1998 0 5:16 Procedure Note Gee Cadleron M.D. - 09/06/2017Form atting of this note [...] notified. Electronically signed by: ?? Mannie Fu ??[phone] ([id number]) 22-Dec-18 99 21:07 I have reviewed the films/images and agr ee with the above interpretation. Electronically signed by: ?? Chris Vega ??[phone] 21:45 Procedure Note Paolo Vega M.D. [...] notifie d. Electronically signed by: Mannie Fu [phone] ([id number]) 1998 21:07 I have reviewed the films/images and agr ee with the above interpretation. Electronically signed by: Chris Vega [phone] 21:45 Reed GONZALEZ DIAGNOSTIC IMAGING PROCE DURES HX SUBSEQ ORDER FOR NB? (1998 6:34 PM CDT) Specimen Anatomical Collection Method Collection Time Receive d Time (Source) Location / / Volume Laterality 1998 6:34 PM 9 1:16 CDT AM CDT Narrative [facility] - 1998 6:34 PM CDT 1998 ?[id number] ?Ro ?18:34 ?? Subsq Order for NB: ?Blood Component ?R BC, Irradiated Leukoreduced ?CPDA-1, Divided ?Transfused ? 1998 ?Unit Number Id ? [id number] ?Blood Component ?R BC, Irradiated Leukoreduced ?CPDA-1, Divided ?Transfused ? 1998 ?Unit Number Id ? [id number] Procedure Note 09/15/2017 1998 [id number] Ro 18:34 Subsq Order for NB: Blood Component RBC, Irradiated Leukore duced CPDA-1, Divided Transfused 1998 Unit Number Id [id number] Blood Component RBC, Irradiated Leukore duced CPDA-1, Divided Transfused 1998 Unit Number Id [id number] Historical Provider LAB HISTORICAL ORDERS Performing Organization Address City/State/ZIP Code Phon e Number [facility] - [address] [place], [place] [address] [facility] Hx general Pathology Report (1998 6:52 AM CDT) Specimen Anatomical Collection Method Collection Time Receive d Time (Source) Location / / Volume Laterality 1998 6:52 AM 9 6:52 CDT AM CDT Narrative [facility] - 1998 6:52 AM CDT [id number] Surgical Pathology Requested By: ? Bryant Maza M.D. ? ([id number]) ?? TISSUE DESCRIPTION: ?? 4 cm small bowel ?? [id number] A1 ?? DIAGNOSIS: ?? Small bowel, partial resection: ??Se gment of small bowel with marked ischemic changes, ?? consistent with necrotizing enteroco litis. ?? [id number] ?Brian Taveras.S.:mgs Procedure Note 08/20/2017 [id number] Surgical Pathology Requested By: Hernan Maza M.D. ( [id number]) TISSUE DESCRIPTION: 4 cm small bowel [id number] A1 DIAGNOSIS: Small bowel, partial resection: Segment of small bowel with marked ischemic changes, consistent with necrotizing enterocolit is. [id number] Abdi TaverasB.S.:mg s Hernan Maza M.D. LAB PATHOLOGY/CYTOLOGY ORDER TAYLOR Performing Organization Address City/State/ZIP Code Phon e Number [facility] - [address] [place], [place] [address] [facility] DX Infant Chest and Abdomen Portable 1 [...] Robert Nick M.D. IMG DIAGNOSTIC IMAGING [facility] DX Chest and Abdomen Portable 1 View [...] RA. Electronically signed by: ?? Esequiel Velasco ??[phone] ([id number]) 1998 06:50 I have reviewed the films/images and agr ee with the above interpretation. Electronically signed by: ?? Yoli Hickman MD. ??[phone] 12:15 Procedure Note Cecily Hickman M.D. [...] in RA. Electronically signed by: Esequiel Velasco [phone] ([id number]) 1998 06 :50 I have reviewed the films/images and agr ee with the above interpretation. Electronically signed by: Yoli Hickman MD. [phone] 1 2:15 Robert GONZALEZ DIAGNOSTIC IMAGING PROC[facility] DX Infant Chest and Abdomen Portable 1 [...] Robert Nick M.D. IMLucía DIAGNOSTIC IMAGING PROC[facility] DX Abdomen Portable Anterior Posterior 1 View [...] interspace. Electronically signed by: ?? China Arrieta ??[phone] ([id number]) 1998 1 0:03 I have reviewed [...] L4-L5 interspace. Electronically signed by: China Arrieta [phone] ([id number]) 1998 10: 03 I have reviewed the films/images and agr ee with the above interpretation. Electronically signed by: John Cassidy MD [phone] 10:5 3 Historical Provider IMG DIAGNOSTIC [...] Electronically signed by: ?? Yoli Hickman MD. ??[phone] 14:12 Procedure Note Cecily Hickman M.D. [...] recommended. Electronically signed by: Yoli Hickman MD. [phone] 1 4:12 Robert Nick M.D. IMG [...] abdomen. Electronically signed by: ?? China Arrieta ??[phone] ([id number]) 1998 0 7:17 I have reviewed the films/images and agr ee with the above interpretation. Electronically signed by: ?? Yoli Hickman MD. ??[phone] 09:22 Procedure Note Cecily Hickman M.D. [...] the abdomen. Electronically signed by: China Arrieta [phone] ([id number]) 1998 07: 17 I have reviewed the films/images and agr ee with the above interpretation. Electronically signed by: Yoli Hickman MD. [phone] 0 9:22 Robert GONZALEZ DIAGNOSTIC IMAGING PROC[facility] DX Chest Portable 1 View (1998 6:56 [...] Electronically signed by: ?? John ??Khanh MICHAEL ??[phone] 07:03 Procedure Note Kaye Cassidy M.D. - 09/06/2017Form atting of this note might be different from the original. 1998 06:56:00 Exam: Portable-Ches t Indications: follow rds ORIGINAL REPORT - 1998 07:03:00 Since yesteray, the ETT has been removed . Enteric tube, UAC, and UVC, remain in place and are unchanged in position. Pulmonary infiltrates have improved. Electronically signed by: John Cassidy MD [phone] 07:0 3 Robert Nick M.D. IMG [...] pattern. Electronically signed by: ?? China Arrieta ??[phone] ([id number]) 1998 0 7:14 I have reviewed [...] gas pattern. Electronically signed by: China Arrieta [phone] ([id number]) 1998 07: 14 I have reviewed the films/images and agr ee with the above interpretation. Electronically signed by: Chris Vega [phone] 10:51 Robert Nick M.D. [facility] US Head (1998 3:48 PM CDT) [...] D:100.120 Electronically signed by: Yoli Hickman MD. [phone] 1 7:38 Robert Nick M.D. IMG [...] pattern. Electronically signed by: ?? China Arrieta ??[phone] ([id number]) 1998 0 7:54 I have reviewed [...] gas pattern. Electronically signed by: China Arrieta [phone] ([id number]) 1998 07: 54 I have reviewed the films/images and agr ee with the above interpretation. Electronically signed by: John Cassidy MD [phone] 09:0 1 Robert Nick M.D. IMG DIAGNOSTIC IMAGING [facility] US Head (1998 4:08 PM CDT) Anatomical Region Laterality Modality Head N/A Ultrasound Specimen (Source) Anatomical Collection Method Collection Time Re ceived Time Location / / Volume Laterality 1998 4:08 PM CDT Narrative 1998 5:29 PM CDT 1998 16:08:00 ??Exam: US Cranial Pediatrics Indications: *PORTABLE*HEAD-R/O IVH ?1ST [id number] ORIGINAL REPORT - 1998 17:29:00 I:100.705 ??No [...] Electronically signed by: ?? Yoli Hickman MD. ??[phone] 17:29 Procedure Note Cecily Hickman M.D. - 09/06/2017Form atting of this note might be different from the original. 1998 16:08:00 Exam: US Cranial Pe diatrics Indications: *PORTABLE*HEAD-R/O IVH [facility] [id number] ORIGINAL REPORT - 1998 17:29:00 I:100.705 No definite evidence of germin al matrix hemorrhage. Ventricles are normal in size. There is increased echotexture in the periventricular white matter, more prominent on the right. While this may represent a normal halo, periventricular leukomalaci a cannot be excluded. No definite evidence of intraventricular hemorrhage. Corpus callosum is present. D:100.120 Electronically signed by: Yoli Hickman MD. [phone] 1 7:29 Robert Nick M.D. IMLucía [...] Electronically signed by: ?? Yoli Hickman MD. ??[phone] 08:03 Procedure Note Cecily Hickman M.D. [...] loops. Electronically signed by: Yoli Hickman MD. [phone] 0 8:03 Robert Nick M.D. IMG [...] Clinton Luna M.D. IMG DIAGNOSTIC IMAGING [facility] DX Infant Chest and Abdomen Portable 1 [...] bowel. Electronically signed by: ?? P. A. Kenton ??[phone] [id number]) 1998 23:46 I have reviewed the films/images and agr ee with the above interpretation. Electronically signed by: ?? John ??Khanh MICHAEL ??[phone] 06:13 Procedure Note Kaye Cassidy M.D. [...] mid bowel. Electronically signed by: Jermaine Gamino [phone] ([id number]) 1998 2 3:46 I have reviewed the films/images and agr ee with the above interpretation. Electronically signed by: John Cassidy MD [phone] 06:1 3 Clinton GONZALEZ DIAGNOSTIC IMAGING PROCE DURES documented in this encounter Visit Diagnoses Not on filedocumented in this encounter
--- OUTSIDE RECORDS SUMMARY | 2022-03-01 04:11 | XMS_ITS | Encounter Summary ---
:1998 Author Organization [facility] Address [address] [place] [address] Care Team Providers Name Role Phone Unavailable Primary Care Provider Unavailable Encounter Details Date Type Department Care Team Description 04/30/2015 Hospital Encounter HX [facility] Miranda Reece APRN, C.N.P., M.S.N. [address] [place] [address] (Wo rk) Social History Tobacco Use Types [...] How often do you attend tenriism or quaker 1 to 4 times per [...] (131 lb 2.8 oz) 04/30/2015 3:28 PM [facility]REL Height 158 cm (5' 2.21) 04/30/2015 3:28 PM [facility] Body Mass Index 23.83 04/30/2015 3:28 PM [facility] Body Mass Index Percentile 79.89 % 04/30/2015 3:28 PM CS T Growth Chart: [facility] (Girls, 2-20 Years) documented in this encounter H&P Notes Chevy, Miranda Guadalupe, BEL, TIFFANIE - 04/30/2015 3:19 PM CST [id number] CHIEF COMPLAINT/REASON FOR VISIT Annual physical. HISTORY [...] Jansen -C./francesca Electronically Signed By: MIRANDA REECE [facility] On: 05/21/2015 02:28 PM Source: [facility] MHSDOLBEYNONRADSYS Document Id: [id number] TER BARREL documented in this encounter Miscellaneous Notes Miscellaneous - Triston Mccormick, L.P.N. - 04/30/2015 3:32 PM CST PHQ-9 - Teens PHQ-9 - Teens Entered On: 04/30/2015 15:33 PA[facility] Performed On: 04/30/2015 15:32 [facility] by TRISTON MCCORMICK LPN PHQ-9 - Teens [...] No TRISTON MCCORMICK LPN - 04/30/2015 15:32 PAINTER [facility]REL Source: [employer] Document Id: [id number] PAINTER BARREL![address] BARREL Miscellaneous - Triston Mccormick L.P.N. - 04/30/2015 3:[address] [facility] Intake/History Pediatric [facility] Painter Intake/History Entered On: 04/30/2015 15:31 PA[facility]REL Performed On: 04/30/2015 15:28 [facility] by TRISTON MCCORMICK LPN Intake Chief Complaint [...] kg/m2 TRISTON MCCORMICK LPN - 04/30/2015 15:28 PA[facility] General Info Accompanied By : Mother, Sibling Information Given By : Patient Languages : Frisian, Slovak Is Patient Female and 13-50 no hysterectomy : Yes Status : Patient denies Are you ? : No TRISTON MCCORMICK LPN - 04/30/2015 15:28 [facility] Subjective Pain Symptoms : No TRISTON MCCORMICK LPN - 04/30/2015 15:28 [facility]REL Dependent Habits Exposure to Tobacco Smoke : Care provider denies smoking in home Smoking Status : Never smoker Tobacco 2A : No Alcohol Use : No TRISTON MCCORMICK LPN - 04/30/2015 15:28 [facility] Caffeine Use Grid Caffeine Use : Current Type : Chocolate, Soft drinks Frequency : Weekly Amount : 2 times per month Last Use : 04/30/15 TRISTON MCCORMICK LPN - 04/30/2015 15:28 PA[facility]REL Recreational Drug Use Grid Drug Use : None TRISTON MCCORMICK LPN - 04/30/2015 15:28 PAINTER BARREL Source: [facility] [employer] Document Id: [id number] PAINTER BARREL![address] BAR[address] documented in this encounter Plan of Treatment Not on filedocumented as of this encounter Procedures Procedure Name Priority Date/Time Associated Comments Diagnosis CHLAMYDIA/GONORRHOEAE Routine 04/30/2015 3:30 PM Results for this AMPLIFIED RNA [facility] procedure are in the results section. CHLAMYDIA TRACHOMATIS Routine 04/30/2015 3:30 PM Results for this AMPLIFIED RNA [facility] procedure are in the results section. documented in this encounter Results Chlamydia / Gonorrhoeae Amplified RNA (04/30/2015 3:30 PM PA[facility]) Component Value Ref Test Analysis Performed At [facility] Range Method Time Signature HX GC by Nucleic POWERCHART Acid Amplification HXFinal Negative for POWERCHART Neisseria gonorrhea by RNA amplification . HXFinal Reference: POWERCHART Negative HXFinal If you POWERCHART submitted a female urine sample, please note it is a Laboratory Developed Test. Specimen (Source) Anatomical Collection Method Collection Time Re ceived Time Location / / Volume Laterality Urine 04/30/2015 3:30 PM [facility] Miranda Reece APRN, C.N.P., M.S.N. LAB MICROB IOLOGY - GENERAL ORDERABLES Performing Organization Address City/State/ZIP Code Phon e Number POWERCHART Chlamydia Trachomatis Amplified RNA (04/30/2015 3:30 PM PA[facility]) Component Value Ref Test Analysis Performed At [facility] Range Method Time Signature HXChlamydia by POWERCHART Nucleic Acid Amplification HXFinal Negative for POWERCHART Chlamydia trachomatis by RNA amplification. HXFinal Reference: POWERCHART Negative HXFinal If you POWERCHART submitted a female urine sample, please note it is a Laboratory Developed Test. Specimen (Source) Anatomical Collection Method Collection Time Re ceived Time Location / / Volume Laterality Urine 04/30/2015 3:30 PM [facility] Miranda Reece APRN, C.N.P., M.S.N. LAB MICROB IOLOGY - GENERAL ORDERABLES Performing Organization Address City/State/ZIP Code Phon e Number POWERCHART documented in this encounter Visit Diagnoses Not on filedocumented in this encounter
--- OUTSIDE RECORDS SUMMARY | 2022-03-01 04:11 | XMS_ITS | Encounter Summary ---
:2000 Author Organization [facility] Address [address] [place] [address] Care Team Providers Name Role Phone Unavailable Primary Care Provider Unavailable Encounter Details Date Type Department Care Team Description 04/17/2011 Hospital Encounter HX [facility]ILY[facility] Norman Payan P.A.-C. [address] [place] [phone] (Wo rk) Social History Tobacco [...] 08/02/2020 relatives? How often do you attend mu-ism or pentecostal 1 to 4 times per year 08/02/2020 services? Do you belong to any clubs or organizations such No 08/02/2020 as mu-ism groups, unions, fraternal or athletic groups, or [...] (97 lb 7.1 oz) 04/17/2011 3:56 PM REAL ESTATE LISTING CONSULTANT Height 149.2 cm (4' 10.74) 04/17/2011 3:56 PM REAL ESTATE LISTING CONSULTANT Body Mass Index 19.86 04/17/2011 3:56 PM REAL ESTATE LISTING CONSULTANT Body Mass Index Percentile 69.40 % 04/17/2011 3:56 PM CS T Growth Chart: [facility] (Girls, 2-20 Years) documented in this encounter Progress Notes Mikael Payan P.A.-C. - 04/17/2011 12:00 AM CST [id number] CHIEF COMPLAINT/ REASON FOR VISIT Sport's history [...] recommend that she follow up with an telecommunications specialist for further evaluation and treatment of this and otherwise she may participate in sports without any restrictions. If there are any questions or problems she will let us know, otherwise follow up as needed. TLR/kln Signed [facility] Electronically Signed By: MIKAEL PAYAN PA-C On: 04/20/2011 01:49 PM Source: [facility] MHSDOLBEYNONRADSYS Document Id: [id number] ESTATE LISTING CONSULTANT documented in this encounter Procedure Notes Conversion, Historical Provider Ser - 04/17/2011 4:36 PM CST Vision Testing Vision Testing Entered On: 04/17/2011 16:36 REAL ESTATE LISTING CONSULTANT Performed On: 04/17/2011 16:36 REAL ESTATE LISTING CONSULTANT by VIVIAN PEDERSEN LPN Vision Testing Corrective Lenses : None Eye, Right w/o Correction : 20/50 Eye, Left w/o Correction : 20/70 NUVIALACHO CroweSesar Castrejon LPN - 04/17/2011 16:36 REAL ESTATE LISTING CONSULTANT [facility] Document Id: [id number] REAL ESTATE LISTING CONSULTANT!5 documented in this encounter Miscellaneous Notes Miscellaneous - Mikael Payan P.A.-C. - 04/17/2011 4:28 PM CST Ambulatory Patient Summary [address] [address] Visit Information Name: CITLALY HOLLAND Current Date: [...] No Appointments found Your Goals/Additional instructions: [facility] Document Id: [id number] ESTATE LISTING CONSULTANT Miscellaneous - Mikael Payan P.A.-C. - 04/17/2011 4:28 PM CST Ambulatory Depart Summary [address] [address] Visit Information Name: CITLALY HOLLAND Current Date: [...] for Pain / Fever Additional Information: Source: [facility] POWERCHART Document Id: [id number] ESTATE LISTING CONSULTANT Miscellaneous - Conversion, Historical Provider Ser - 04/17/2011 3:56 PM REAL ESTATE LISTING CONSULTANT Pediatric Stock Preparation Operator Intake/History Pediatric Stock Preparation Operator Intake/History Entered On: 04/17/2011 15:59 REAL ESTATE LISTING CONSULTANT Performed On: 04/17/2011 15:56 REAL ESTATE LISTING CONSULTANT by VIVIAN PEDERSEN LPN Intake Peripheral Pulse Rate : 84/min Respiratory Rate : 20/min Systolic Blood Pressure : 106mmHg Diastolic Blood Pressure : 52mmHg NIBP Mean : 70mmHg BP Location : Right upper extremity Heart Rhythm : Regular VIVIAN PEDERSEN LPN - 04/17/2011 15:59 REAL ESTATE LISTING CONSULTANT Chief Complaint : Sports physical Ambulatory Intake Additional Information : Arm span:145 cm Temperature Oral : 36.7C(Converted to: 98.1DegF) Height : 149.2cm(Converted to: 4ft 11inch(es), 58.74inch(es)) Actual Weight : 44.2kg(Converted to: 97lb 7oz) Weight Source : Standing scale Dosing Weight Clinic : 44.20kg Clinic BSA : 1.35 Body Mass Index : 19.86kg/m2 VIVIAN PEDERSEN [facility] - 04/17/2011 15:56 REAL ESTATE LISTING CONSULTANT Subjective Pain Symptoms : No VIVIAN PEDERSEN EASEMENT WORKER - 04/17/2011 15:56 REAL ESTATE LISTING CONSULTANT Dependent Habits Tobacco Use/Currently Using : No Tobacco Use/Last 12 months : No Smoking Status : Never smoker Alcohol Use : No VIVIAN PEDERSEN [facility] - 04/17/2011 15:56 REAL ESTATE LISTING CONSULTANT Caffeine Use Grid Caffeine Use : Current Type : Chocolate, Soft drinks Frequency : Monthly Amount : 2 times per month Last Use : today VIVIAN PEDERSEN [facility] 04/17/2011 15:56 REAL ESTATE LISTING CONSULTANT Recreational Drug Use Grid Drug Use : None VIVIAN PEDERSEN [facility] 04/17/2011 15:56 REAL ESTATE LISTING CONSULTANT Allergy Allergies (Active) penicillin Estimated Onset Date: Unspecified ; Created By: CHARO TENORIO; Reaction Status: Active ; Category: Drug ; Substance: penicillin ; Type: Allergy ; Severity: Mild ; Updated By: CHARO TENORIO; Source: Family ; Reviewed Date: 04/17/2011 15:52 REAL ESTATE LISTING CONSULTANT Source: [facility] POWERCHART Document Id: [id number] REAL ESTATE LISTING CONSULTANT!9 documented in this encounter Plan of Treatment Not on filedocumented as of this encounter Visit Diagnoses Not on filedocumented in this encounter
--- OUTSIDE RECORDS SUMMARY | 2022-03-01 04:11 | XMS_ITS | Encounter Summary ---
:2000 Author Organization [facility] Address [address] [place] [address] Care Team Providers Name Role Phone Chaparro Payan P.A.-C. Primary Care Provider [phone] Encounter Details Date Type Department Care [...] How often do you attend latter-day or anglican 1 to 4 times per [...] no amblyopia CDM Reports - EYEGEN Id: [id number] Status: Fnl documented in this encounter Plan of Treatment Not on filedocumented as of this encounter Visit Diagnoses Not on filedocumented in this encounter Additional Health Concerns Infection Onset Date Last Indicated Resolved Time COVID19 Pending 02/28/2020 02/28/2020 02/29/2020 4:25 AM CDT COVID19 Pending 03/27/2020 03/28/2020 03/29/2020 10:23 PM CDT COVID19 Pending 06/23/2020 06/23/2020 06/24/2020 2:18 PM YARDAGE TUFTING MACHINE OPERATOR COVID19 Pending 07/12/2020 07/12/2020 07/13/2020 1:56 AM YARDAGE TUFTING MACHINE OPERATOR documented as of this encounter Care Teams Finance Advisor Relationship Specialty Start Date End Date Chaparro Payan P.A.-C. PCP - General 02/05/[address] [place] [phone] documented as of this encounter
[2022-03-01 05:38] LABS: SARS Antigen* Negative (Negative)
[2022-03-01] MEDS: LACTATED RINGERS 1000 ML 1,000 ML IV (06:42)
[2022-03-01 06:49] LABS: Eosinophils Absolute Auto 0.04 K/uL (0.00-0.50); Eosinophils Percent Auto 0.4 % (0.0-7.0); Hematocrit 35.3 % (33.0-51.0); Hemoglobin* 11.5 gm/dL (12.0-16.0); Immature Granulocytes Abs Auto 0.02 K/uL (0.00-0.30); Lymphocytes Percent Auto 14.9 % (20-44); Mean Corpuscular HGB Conc 33 gm/dL (32-36); Mean Corpuscular Hemoglobin 27 pg (26-34); Mean Corpuscular Volume 82 fL (80-100); Monocytes Percent Auto 4.7 % (0.0-11.0); Neutrophils Percent Auto 79.8 % (42.0-72.0); Platelet Count* 309 K/uL (140-440); RDW Coefficient of Variation % 13.4 % (11.5-15.5); Red Blood Count 4.32 m/uL (4.00-5.20); Slide Review Reflex No; White Blood Count* 10.42 K/uL (4.50-11.00)
--- NOTE | 2022-03-01 06:58 | W.PM.LDBA ---
Subjective History of Present Illness Narrative: Patient is being admitted to Labor and Delivery for labor. She is a 21 year old at 37.6 weeks gestation. Her full history and physical was dictated by Shawn Tomlin CNM on 02/23/22. Please see this for details. She was in L&D yesterday after noon. At that time she was 1cm dilated and after 2 hours had not made any cervical change and was sent home. She continued to labor at home throughout the night and came back in this morning with cervical change so she was admitted. She does have a cold and feels congested and sick. On exam she was 4/90%/-2 with a bulging bag. Offered AROM as she states that she is exhausted and wants things to progress. Patient decided that she would like an epidural before AROM. RN initiating necessary steps to accomplish this. 1. BMI 32.5 2. Bicusid Aortic valve. Calculated ejection fraction 59% in 2018, 64% on 09/16/21 Cardiology consult/perinatology referral to [place], recommended management per routine w/ future echocardiography with subsequent Per [facility]: echo indicated postnatally LVL 2 USN 10/28/21: No anatomic abnormality identified. EFW 77%. SDP 5.6cm. 3. E coli UTI on 1st trimester screening urine culture. Pansensitive. Keflex 500 mg QID X 5 days sent to her pharmacy. BRYN shows E.Coli, Treating x10 days with Macrobid BRYN done 11/25, negative 4. 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 Penicillin Allergy, NEEDS sensitivity testing with GBS swab 6. Covid positive 12/08. Symptoms started on 12/05/21. Out of quarantine 12/16/21. Growth US at 32 weeks: 68%ile Growth US at 36wks: [] 7. Initial BMI 34.0. Gestational Diabetes 12/26/2021: 1 hour GTT 164 01/02/2022: 3 hour GTT: Fasting 84, 1 hour 147, 2 hours 175 (H), 3 hours 158 (H) 8. Blood Sugar log reviewed - 7 elevated fasting & 15 elevated postprandial readings, referral to [facility] for Diabetic Education and management. No longer able to be CNM patient d/t need for insulin 01/23/2022 Video visit o 02/06 w/ [facility] horse breaker: Recommended no need for insulin as the patient had modified and completely checking her blood sugars. She was given parameters to contact them for starting medication Checking blood sugars 2-3 times a day as of 02/12/2022. 10/11 postprandial values were elevated between 02/06 - 02/12 > 30% of her postprandial values were elevated so recommended she contact endocrine to see if they recommend starting insulin. 02/18 1 abnormal postprandial value and 1 abnormal fasting in 1 week. Reviewed sugars with endocrine, no concerns and continue as is. Endocrine ok'd patient checking 1 fasting and 2 postprandials. OB - H&P: Exam Physical Exam: Vital signs: Temp Pulse Resp BP 97.6 F 86 18 130/69 03/01/22 04:05 03/01/22 04:29 03/01/22 04:05 03/01/22 04:29 Constitutional: Constitutional: no acute distress Routine HEENT Exam: Head: Present normal inspection Eye: Present normal appearance Routine Neck Exam: Neck: Present full ROM Routine Respiratory Exam: Respiratory: Present CTA bilaterally Routine Cardiovascular Exam: Cardiovascular: RRR Routine Exam: External: Present normal external exam Detailed Labor and Delivery Exam: Patient Gravid: yes Dilation (cm): 4 Effacement (%): 90 Cervix position: mid Consistency: medium Contraction frequency (min): 3 (Q 2-3 min) Tachysystole: No Contraction intensity: Moderate Fetus (Single): Station: -2 Heart Rate Baseline: 135 Monitor Accelerations: Present Monitor Decelerations: None Half-Way Variability: Moderate (11-25) (6-25) Routine Back/Spine/Pelvis Exam: Back/Spine: full ROM Routine Psychiatric Exam: Present normal affect and normal thought process OB - Problem Based A/P Additional Plan (1) : Status: Acute Plan ASSESSMENT:? at 37.6 weeks gestation? GBS negative complicated GDM-diet controlled? PLAN:? 1. Blood sugar monitoring per unit policy.? 2. Candidate for analgesia of choice. Was planning unmedicated but is now asking for an epidural. Ok for epidural when ready..? 3. Will consider AROM after epidural 4. Anticipate ? 5. IV to be placed and continuous monitoring after epidural placement per unit policy.? ? Delivery/Labor/Induction Plan Plan: expectant management Induction method: AROM (may consider AROM after epidural is placed)
[2022-03-01] MEDS: ROPIVACAINE 0.2% 100 ml 100 ML 12 MG EPIDURAL ×3 (07:37→20:03)
[2022-03-01] MEDS: LACTATED RINGERS 1000 ML 1,000 ML 125 ML IV (07:43)
--- NOTE | 2022-03-01 07:43 | PM.ANBPRC ---
[facility] Medical History Bicuspid aortic valve H/O prematurity Surgical History H/O resection of large bowel Social History Smoking Status: Never smoker Meds Home Medications and Allergies Home Medications Medication Instructions Recorded Confirmed Type aspirin 81 mg tablet,delayed 81 mg PO QDAY 11/25/21 02/28/22 History release (Adult Low Dose Aspirin) prenat.vits,gumaro,obf-ytav-hffdv 1 tab PO QDAY 11/25/21 02/28/22 History Allergies Allergy/AdvReac Type Severity Reaction Status Date / Time Penicillin Allergy Unknown Rash Uncoded 02/23/22 09:16 Results Labs Labs: Laboratory Results - last 24 hr 03/01/22 03/01/22 04:59 06:40 WBC 10.42 RBC 4.32 Hgb 11.5 L Hct 35.3 MCV 82 MCH 27 MCHC 33 RDW Coeff of Sailaja 13.4 Plt Count 309 Neut % (Auto) 79.8 H Lymph % (Auto) 14.9 L Kay % (Auto) 4.7 Eos % (Auto) 0.4 Baso % (Auto) 0.0 Neut # (Auto) 8.30 H Lymph # (Auto) 1.60 Kay # (Auto) 0.50 Eos # (Auto) 0.04 Baso # (Auto) 0.00 Abs Immat Gran (auto) 0.02 SARS-CoV-2 Ag (Rapid) Negative Vital Signs Vital Signs: Last Vital Signs Temp 97.6 F 03/01/22 04:05 Pulse 100 03/01/22 07:42 Resp 18 03/01/22 04:05 BP 127/73 03/01/22 07:42 Pulse Ox 96 03/01/22 07:41 Weight: 97.749 kg Height: 160.02 cm Anesthesia Procedures Epidural Insertion Patient Location: OB Start Time: 06:45 Stop Time: 07:45 Start Date: 03/01/22 Stop Date: 03/01/22 Reason for Block: procedure for pain Patient Position: sitting Performed By: Matthew Maxwell Preanesthetic Checklist: IV checked, risks and benefits discussed, surgical consent, monitors and equipment checked, pre-op evaluation, timeout performed and anesthesia consent Prep: chlorhexidine gluconate Monitoring: blood pressure monitoring, continuous pulse oximetry and heart rate Approach: midline Vertebral Space: lumbar (1-5) Epidural Technique: ANITA saline Needle Type: Tuohy needle Injection Technique: continuous catheter Needle gauge: 17 Needle Length (cm): 10 cm Needle Insertion Depth (cm): 6 Catheter Gauge: 19 Catheter Type: multi-orifice Catheter at skin depth (cm): 12 Test Dose Result: negative and lidocaine 1.5% with epinephrine 1 to 200,000
[2022-03-01] MEDS: PHENYLEPHRINE 100 MCG/ML SYRINGE IVP (07:54)
[2022-03-01] MEDS: 5 % DEXTROSE/0.9% SOD CHLORIDE 1,000 ML 125 ML IV ×2 (08:51→17:15)
[2022-03-01] MEDS: fentaNYL 100 MCG/2 ML inj EPIDURAL (17:30)
[2022-03-01] MEDS: LIDOCAINE 2% (PF) 5 ML VIAL EPIDURAL ×2 (17:31→20:04)
[2022-03-01] MEDS: LABETALOL HCL 5 MG/ML inj IVP (19:02)
[2022-03-01 19:34] LABS: Alanine Aminotransferase* 13 U/L (4-35); Aspartate Amino Transferase* 25 U/L (12-35); Blood Urea Nitrogen* 7 mg/dL (5-24); Creatinine* 0.6 mg/dL (0.5-1.5); Est. Creatinine Clearance* 120.63; Estimated Glomerular Filt Rate 129 ml/min; Prothrombin Time 12.5 Seconds
[2022-03-01 19:35] LABS: Fibrinogen* 674 mg/dL (200-450)
[2022-03-01 19:42] LABS: Red Blood Count 4.29 m/uL (4.00-5.20); White Blood Count* 15.38 K/uL (4.50-11.00)
[2022-03-01 19:43] LABS: Hematocrit 35.2 % (33.0-51.0); Hemoglobin* 11.4 gm/dL (12.0-16.0); Mean Corpuscular HGB Conc 32 gm/dL (32-36); Mean Corpuscular Hemoglobin 27 pg (26-34); Mean Corpuscular Volume 82 fL (80-100); Platelet Count* 317 K/uL (140-440); Slide Review Reflex No
--- NOTE | 2022-03-01 19:50 | PM.OBPNL ---
Pain Control Date Seen: 03/01/22 Pain control: other (epidural no longer working. pt able to lift legs off bed without difficutly. using nitrous in the bed at this time) Comments: Called to bedside for increased pain and increased blood pressures. Epidural no longer working and pt able to lift legs off the bed and move without difficulty. She is using nitrous to help cope but still in a lot of pain. She wants to stand at the bed side and is unsure if she wants to have the epidural replaced at this time. Her blood pressures for the last little while have been in the severe range greater than 15 minutes apart. Labs ordered and Dr. Tuttle consulted. Care handed over to OB care at this time for blood pressure management. Contractions Monitor mode: External Contraction frequency: 3 (Q 2-4 min) Contraction pattern: Irregular Contraction intensity: Moderate Pelvic Exam Dilation (cm): 8 Effacement (%): 100 Station: 0 Comments: per RN SVE Fetus (Single) Amniotic Membrane Status: AROM status: Category l Comments: Baseline 135, +accels, -decels, moderate variability. Assessment and Plan Assessment: active labor Plan: other (care assumed by OB)
[2022-03-01] MEDS: fentaNYL 250 MCG/5 ML inj 100 MCG EPIDURAL (19:55)
--- NOTE | 2022-03-01 20:05 | P.OBCN_ITS ---
OB - CN: HPI Date of Consult Time Seen by Provider: 20:05 Date Seen: 03/01/22 Patient: [facility] Patient Consult date: 03/01/22 Requesting Physician: Neelam Delarosa CNM Primary Care Provider: Not a Local Provider Consult Narrative Narrative: Citlaly is a 21-year-old 1 para 0 at 37 weeks 6 days gestation who was admitted to the center after spontaneous onset of labor on 03/01/2022. Her was followed by the nurse cabin equipment supervisor group and complicated by diet- controlled gestational diabetes. During the active phase of labor she had multiple blood pressures in the severe range with systolic blood pressure >/= 160 and/or DBP >/= 100 I will be taking over care of this patient due to severe gestational hypertension by blood pressure. She has received IV labetalol 20 mg x1 and magnesium sulfate was started for seizure prophylaxis. Preeclampsia labs from 03/01/2022 at 6:50 p.m.: Hemoglobin 11.4, platelets 317 K, BUN 7, creatinine 0.6, AST 25, ALT 13, INR 0.9, fibrinogen 674. Urine protein creatinine ratio is pending. The patient had a functioning epidural but late this afternoon it completely stopped functioning and is now having a 2nd epidural placed. After getting the test dose of her 2nd epidural her blood pressures are now 100's-110's/50's. The patient denies OLIVAS's, visual changes, RUQ/mid-epigastric pain, N/V and has had minimal swelling. Patient has had somewhat slow progress of dilation in the active phase. Will consider placing an intrauterine pressure catheter and starting Pitocin if indicated. See Neelam Delarosa's H&P note for complete details of the patient's . Partner: Trevon Adam. Baby: Boy! Blood Type: O positive GBS: Negative H&P completed 02/23/2022 by Shawn Tomlin CNM 1. BMI 32.5 2. Bicusid Aortic valve. Calculated ejection fraction 59% in 2018, 64% on 09/16/21 Cardiology consult/perinatology referral to [facility], recommended management per routine w/ future echocardiography with subsequent Per [facility]: echo indicated postnatally LVL 2 USN 10/28/21: No anatomic abnormality identified. EFW 77%. SDP 5.6cm. 3. E coli UTI on 1st trimester screening urine culture. Pansensitive. Keflex 500 mg QID X 5 days sent to her pharmacy. BRYN shows E.Coli, Treating x10 days with Macrobid BRYN done 11/25, negative 4. 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 Penicillin Allergy, NEEDS sensitivity testing with GBS swab 6. Covid positive 12/08. Symptoms started on 12/05/21. Out of quarantine 12/16/21. Growth US at 32 weeks: 68%ile Growth US at 36wks: 02/18/2022: Vtx, SDP 5.8cm, EFW 3183gm=7#0oz, 80%. BPD 78%, HC 72%, AC 94%, FL 28% 7. Initial BMI 34.0. Gestational Diabetes 12/26/2021: 1 hour GTT 164 01/02/2022: 3 hour GTT: Fasting 84, 1 hour 147, 2 hours 175 (H), 3 hours 158 (H) 8. Blood Sugar log reviewed - 7 elevated fasting & 15 elevated postprandial readings, referral to [facility] for Diabetic Education and management. * No longer able to be CNM patient d/t need for insulin 01/23/2022 * Video visit o 02/06 w/ [facility] entry manager: Recommended no need for insulin as the patient had modified and completely checking her blood sugars. She was given parameters to contact them for starting medication * Checking blood sugars 2-3 times a day as of 02/12/2022. 10/11 postprandial values were elevated between 02/06 - 02/12 > 30% of her postprandial values were elevated so recommended she contact endocrine to see if they recommend starting insulin. * 02/18 1 abnormal porstprandial value and 1 abnormal fasting in 1 week. Reviewed sugars with endocrine, no concerns and continue as is. Endocrine ok'd patient checking 1 fasting and 2 postprandials. History History 1 Elective abortions 0 Para 0 Spontaneous abortions 0 Hx # Term Pregnancies 0 Ectopic pregnancies Hx # Pregnancies 0 Multiple births 0 Number of Living Children 0 Labs OB Labs: Lab Assessment Start: 03/01/22 04:41 Freq: ONCE Status: Complete Protocol: PC.OBGBS Activity Type Activity Date Activity User E-sign Co-sign Detail Recorded Client Recorded Date Recorded By Document 03/01/22 05:02 WILL [id number] 03/01/22 05:03 WILL 03/01/22 05:02 Lab Assessment GBS negative Does Patient Meet Criteria No Is Patient Allergic to Penicillin Yes No Treatment Needed OK Maternal Blood Type O Maternal RH Factor Positive Evaluate Maternal Rubella Immune Status Immune Hepatitis B Surface Antigen Negative Maternal HIV Status Negative Maternal Syphillis (RPR) Status Negative Are Labs Available Yes PFSH PFS Medical History (Updated 03/01/22 @ 20:18 by Francie Tuttle MD) Bicuspid aortic valve Gestational diabetes, diet controlled Gestational hypertension affecting third H/O prematurity Obesity (BMI 35.0-39.9 without comorbidity) Surgical History H/O resection of large bowel Social History Smoking Status: Never smoker Meds Home Medications and Allergies Home Medications Medication Instructions Recorded Confirmed Type aspirin 81 mg tablet,delayed 81 mg PO QDAY 11/25/21 02/28/22 History release (Adult Low Dose Aspirin) prenat.vits,gumaro,rje-pezr-vdfih 1 tab PO QDAY 11/25/21 02/28/22 History Allergies Allergy/AdvReac Type Severity Reaction Status Date / Time Penicillin Allergy Unknown Rash Uncoded 02/23/22 09:16 OB - H&P: Exam Physical Exam: Vital signs: Temp Pulse Resp BP Pulse Ox 97.8 F 115 H 20 138/75 100 03/01/22 17:00 03/01/22 19:46 03/01/22 17:00 03/01/22 19:46 03/01/22 19:51 Narrative: General: Pleasant, young woman trouble with epidural. EFM: Baseline 140's, moderate variability, moderate variability, 81h89ntw accelerations, No decelerations. Category 2. Reassuring TOCO: Q2-3 minutes. Extremities: Minimal BLE edema SVE: deferred. OB - Results Labs Labs: Short CBC 03/01/22 03/01/22 Range/Units 06:40 18:50 WBC 10.42 15.38 H (4.50-11.00) K/uL Hgb 11.5 L 11.4 L (12.0-16.0) gm/dL Hct 35.3 35.2 (33.0-51.0) % Plt Count 309 317 (140-440) K/uL BMP 03/01/22 18:50 BUN 7 Creatinine 0.6 Liver Function 03/01/22 Range/Units 18:50 AST 25 (12-35) U/L ALT 13 (4-35) U/L OB - CN: A/P Assessment and Plan (1) : Status: Acute (2) Gestational hypertension affecting third : Start date: 03/01/22 Start time: 17:00 Status: Acute Assessment and Plan: 1. Continue MagSO4 for seizure prophylaxis until 24 hours 2. urine for P/C ratio 3. IV antihypertensive treatment per protocol 4. Epidural for labor analgesia. 5. Pitocin for labor augmentation prn. (3) Obesity (BMI 35.0-39.9 without comorbidity): Status: Acute
--- NOTE | 2022-03-01 20:16 | P.ANBPRC_ITS ---
[facility] Medical History Bicuspid aortic valve H/O prematurity Surgical History H/O resection of large bowel Social History Smoking Status: Never smoker Meds Home Medications and Allergies Home Medications Medication Instructions Recorded Confirmed Type aspirin 81 mg tablet,delayed 81 mg PO QDAY 11/25/21 02/28/22 History release (Adult Low Dose Aspirin) prenat.vits,gumaro,zgk-cdck-mabpo 1 tab PO QDAY 11/25/21 02/28/22 History Allergies Allergy/AdvReac Type Severity Reaction Status Date / Time Penicillin Allergy Unknown Rash Uncoded 02/23/22 09:16 Results Labs Labs: Laboratory Results - last 24 hr 03/01/22 03/01/22 03/01/22 04:59 06:40 06:40 WBC 10.42 RBC 4.32 Hgb 11.5 L Hct 35.3 MCV 82 MCH 27 MCHC 33 RDW Coeff of Sailaja 13.4 Plt Count 309 Neut % (Auto) 79.8 H Lymph % (Auto) 14.9 L [place] % (Auto) 4.7 Eos % (Auto) 0.4 Baso % (Auto) 0.0 Neut # (Auto) 8.30 H Lymph # (Auto) 1.60 [place] # (Auto) 0.50 Eos # (Auto) 0.04 Baso # (Auto) 0.00 Abs Immat Gran (auto) 0.02 INR Fibrinogen BUN Creatinine Estimated Creat Clear Estimated GFR AST ALT SARS-CoV-2 Ag (Rapid) Negative Blood Type O Positive Antibody Screen NEGATIVE 03/01/22 03/01/22 03/01/22 18:50 18:50 18:50 WBC 15.38 H RBC 4.29 Hgb 11.4 L Hct 35.2 MCV 82 MCH 27 MCHC 32 RDW Coeff of Sailaja Plt Count 317 Neut % (Auto) Lymph % (Auto) [place] % (Auto) Eos % (Auto) Baso % (Auto) Neut # (Auto) Lymph # (Auto) [place] # (Auto) Eos # (Auto) Baso # (Auto) Abs Immat Gran (auto) INR 0.90 L Fibrinogen 674 H BUN 7 Creatinine 0.6 Estimated Creat Clear 120.63 Estimated GFR 129 AST 25 ALT 13 SARS-CoV-2 Ag (Rapid) Blood Type Antibody Screen Vital Signs Vital Signs: Last Vital Signs Temp 97.8 F 03/01/22 17:00 Pulse 101 H 03/01/22 20:07 Resp 20 03/01/22 17:00 BP 114/59 L 03/01/22 20:07 Pulse Ox 77 L 03/01/22 19:57 Weight: 97.749 kg Height: 160.02 cm Anesthesia Procedures Epidural Insertion Patient Location: OB Start Time: 19:00 Stop Time: 20:00 Start Date: 03/01/22 Stop Date: 03/01/22 Reason for Block: primary anesthetic Patient Position: sitting Performed By: Slava Mills Preanesthetic Checklist: IV checked, risks and benefits discussed, surgical consent, monitors and equipment checked, pre-op evaluation, timeout performed and anesthesia consent Prep: chlorhexidine gluconate Monitoring: blood pressure monitoring, media monitor, continuous pulse oximetry and heart rate Approach: midline Vertebral Space: lumbar (1-5) Needle Type: Tuohy needle Injection Technique: continuous catheter Needle gauge: 17 Needle Length (cm): 10 cm Needle Insertion Depth (cm): 6 Catheter Gauge: 19 Catheter Type: multi-orifice Catheter at skin depth (cm): 12 Test Dose Result: negative and lidocaine 1.5% with epinephrine 1 to 200,000 Events: other
[2022-03-01 20:59] LABS: Creatinine Urine 18.1 mg/dL; Total Protein Urine 35 mg/dL
[2022-03-01] MEDS: OXYTOCIN 30 unit/500 ML in NS 30 UNIT/500 ML BAG IVPB (21:09)
[2022-03-02] VITALS (34 sets, daily range): BP systolic 92–162; BP diastolic 46–81; PULSE 55–136; RESP 16–18; TEMP 36.4–37; O2SAT 95–98
[2022-03-02] MEDS: LACTATED RINGERS 1000 ML 1,000 ML 125 ML IV (00:02)
[2022-03-02] MEDS: LIDOCAINE 1% MDV 20 ML INJECTION (02:49)
[2022-03-02] MEDS: miSOPROStoL 800 MCG/4 TABLET PR (02:53)
--- NOTE | 2022-03-02 03:07 | PM.OBPRCVD ---
Procedure Delivery date: 03/02/22 Procedure Done: Global Procedure Details: Citlaly is a 21 year-old G 1 P 0 now 1 admitted on 03/01/2022 at 9:00 a.m. at 37 Weeks, 6 Days gestation for spontaneous onset of labor.. AROM occurred at 11:32 a.m. on 03/01/2022 with clear fluid. GBS negative. Labor was complicated by severe preeclampsia range blood pressures in the active phase. Urine protein/creatinine ratio from her Ball catheter: 1.90. She was started on magnesium sulfate for seizure prophylaxis and required Pitocin for labor augmentation. She denies symptoms of headache, visual changes, right upper quadrant/midepigastric pain, nausea/vomiting. She reports mild bilateral lower extremity edema in her feet Labor Analgesia: Nitrous and epidural Pitocin: Yes: Maximum dose 12 milliunits/minute Labor onset: 03/01/2022 at 1:00 a.m.. Complete: 03/02/2022 at 1:04 a.m.. Pushin03/02/2022 at 1:11 a.m.. heart tones during second stage were: Category 1. At 2:20 a.m. a viable male infant delivered in vertex direct OA presentation over partial 3rd degree perineal laceration via spontaneous vaginal delivery. The infant was placed on maternal abdomen. Cord was clamped and cut after a 60+ second delay. Nose and mouth were bulb suctioned. weight pending. 9 at 1 minute and 9 at 5 minutes. Shoulder dystocia: No. Nuchal cord: No Placenta delivered spontaneously at on 03/02/2022 at 2:45 a.m. with a 3 vessel cord. The patient and her partner are planning on keeping the placenta and having it encapsulated. Laceration(s): Partial third-degree laceration. Repaired using 2 3-0 Vicryl sutures. The 1st suture was used to reinforce the external anal sphincter. Two Allis clamps were placed on the fascia of the anal sphincter 3 figure of 8 sutures were placed 1 superior to the Allis clamps 1 inferior to the Allis clamps and what at the level of the Allis clamps. The remaining second-degree laceration was repaired in the usual manner using the 2nd 3-0 Vicryl. The bladder was drained with straight catheterization prior to delivery of the placenta for 250 mL of clear urine. Blood loss: For her mL. Blood loss measurement type: Quantitative Sponge and needles counts are correct. Specimen: None Mother and were stable after delivery. Infant's name: Pako Adam The patient is planning on breast feeding. Events: GDMA1 and Pre-Eclampsia Intrapartal Events: Labor Augmentation Delivery augmentation: rupture of membranes and pitocin Delivery monitor: external FHT and external uterine Route of delivery: Laceration description: Perineal - 3rd Degree Delivery repair: Vicryl Anesthesia type: Epidural Disposition: floor Infant Gender: Male presentation: vertex Placental Delivery Description: Spontaneous Cord Description: 3 Vessels
[2022-03-02 05:30] LABS: Hematocrit 27.2 % (33.0-51.0); Hemoglobin* 8.9 gm/dL (12.0-16.0); Mean Corpuscular HGB Conc 33 gm/dL (32-36); Mean Corpuscular Hemoglobin 27 pg (26-34); Mean Corpuscular Volume 83 fL (80-100); Platelet Count* 289 K/uL (140-440); Red Blood Count 3.28 m/uL (4.00-5.20); White Blood Count* 22.73 K/uL (4.50-11.00)
[2022-03-02 05:41] LABS: Slide Review Reflex No
[2022-03-02 05:47] LABS: Alanine Aminotransferase* 37 U/L (4-35); Aspartate Amino Transferase* 27 U/L (12-35); Blood Urea Nitrogen* 6 mg/dL (5-24); Creatinine* 0.7 mg/dL (0.5-1.5); Estimated Glomerular Filt Rate 125 ml/min
[2022-03-02] MEDS: IBUPROFEN 600 MG TABLET PO ×3 (06:01→20:36)
[2022-03-02 07:28] LABS: Hematocrit 24.5 % (33.0-51.0); Mean Corpuscular HGB Conc 32 gm/dL (32-36); Mean Corpuscular Hemoglobin 27 pg (26-34); Mean Corpuscular Volume 82 fL (80-100); Platelet Count* 255 K/uL (140-440); Red Blood Count 2.98 m/uL (4.00-5.20)
[2022-03-02 07:34] LABS: Hemoglobin* 7.9 gm/dL (12.0-16.0); Slide Review Reflex No
[2022-03-02 07:45] LABS: Aspartate Amino Transferase* 26 U/L (12-35); Creatinine* 0.7 mg/dL (0.5-1.5); Estimated Glomerular Filt Rate 125 ml/min; Fibrinogen* 540 mg/dL (200-450); INR 1.03 (0.91-1.10); Prothrombin Time 13.9 Seconds
[2022-03-02 07:46] LABS: Alanine Aminotransferase* 42 U/L (4-35); Blood Urea Nitrogen* 5 mg/dL (5-24)
[2022-03-02] MEDS: LACTATED RINGERS 1000 ML 1,000 ML 75 ML IV ×2 (07:55→20:36)
[2022-03-02] MEDS: DOCUSATE SODIUM 100 MG CAPSULE PO ×2 (12:24→20:36)
[2022-03-02 20:14] LABS: Hematocrit 25.4 % (33.0-51.0); Hemoglobin* 8.5 gm/dL (12.0-16.0); Mean Corpuscular HGB Conc 34 gm/dL (32-36); Mean Corpuscular Hemoglobin 28 pg (26-34); Mean Corpuscular Volume 82 fL (80-100); Platelet Count* 249 K/uL (140-440); Red Blood Count 3.09 m/uL (4.00-5.20)
[2022-03-02 20:16] LABS: Slide Review Reflex No
[2022-03-02 20:37] LABS: Alanine Aminotransferase* 11 U/L (4-35); Aspartate Amino Transferase* 22 U/L (12-35); Blood Urea Nitrogen* 8 mg/dL (5-24); Creatinine* 0.8 mg/dL (0.5-1.5); Est. Creatinine Clearance* 90.47; Estimated Glomerular Filt Rate 106 ml/min
--- NOTE | 2022-03-02 21:20 | PM.OBPNVD1 ---
OB - PN:Subj Subjective Time Seen by Provider: 08:00 Date Seen: 03/02/22 Patient comments OB post-: other (Dizziness ) OB - PN: Obj Exam Physical Exam: Vital signs: Temp Pulse Resp BP Pulse Ox O2 Del Method 97.6 F 78 16 106/69 97 03/02/22 20:12 03/02/22 20:12 03/02/22 20:12 03/02/22 20:12 03/02/22 20:12 03/02/22 20:12 Narrative: Physical exam: General: No acute distress Psych: Alert and oriented x3, full affect HEENT: Conjunctival pallor noted bilateral Heart: Tachycardic but was regular rhythm, no murmur rub or gallop Lungs: Clear to auscultation bilaterally Abdomen: Normoactive bowel sounds, soft, no tenderness, rebound, or guarding, no masses, no hepatosplenomegaly, no hernias. Uterine fundus firm 2 cm below the umbilicus. Lower extremities: 2+ bilateral edema Pelvic exam: Scant vaginal bleeding on Pad OB - PN: Obj Data Labs Labs: Laboratory Results - last 24 hr 03/01/22 03/02/22 03/02/22 06:40 05:24 05:24 WBC 22.73 H RBC 3.28 L Hgb 8.9 L Hct 27.2 L MCV 83 MCH 27 MCHC 33 Plt Count 289 INR Fibrinogen BUN 6 Creatinine 0.7 Estimated Creat Clear 103.40 Estimated GFR 125 AST 27 ALT 37 H Blood Type O Positive Antibody Screen NEGATIVE Crossmatch ([facility]) See Detail 03/02/22 03/02/22 03/02/22 07:12 07:12 07:12 WBC 20.70 H RBC 2.98 L Hgb 7.9 L* Hct 24.5 L MCV 82 MCH 27 MCHC 32 Plt Count 255 INR 1.03 Fibrinogen 540 H BUN 5 Creatinine 0.7 Estimated Creat Clear 103.40 Estimated GFR 125 AST 26 ALT 42 H Blood Type Antibody Screen Crossmatch ([facility]) 03/02/22 03/02/22 20:08 20:08 WBC 16.40 H RBC 3.09 L Hgb 8.5 L Hct 25.4 L MCV 82 MCH 28 MCHC 34 Plt Count 249 INR Fibrinogen BUN 8 Creatinine 0.8 Estimated Creat Clear 90.47 Estimated GFR 106 AST 22 ALT 11 Blood Type Antibody Screen Crossmatch ([facility]) OB - PN: A/P Vaginal Delivery Assessment and Plan (1) Gestational hypertension affecting third : Status: Resolved (2) Obesity (BMI 35.0-39.9 without comorbidity): Status: Acute (3) Third degree perineal laceration during delivery with less than 50% tear of external anal sphincter: Status: Acute Assessment and Plan: - will continue with bowel regimen. Discussed with patient that we 1 her stool to be soft so that the stitches were not tear through when she has a bowel movement. (4) (normal spontaneous vaginal delivery): Problem details: Boy 2:28am, Apgars 9/9, Pako. Status: Acute (5) Severe preeclampsia: Problem details: By blood pressure criteria, Urine P/C = 1.90 on cath specimen Patient currently on magnesium sulfate for seizure prophylaxis. Will continue magnesium sulfate for 24 hours after delivery. Will continue to monitor preeclampsia labs. Labs pending. Status: Acute (6) Gestational diabetes: Problem details: Referred to endocrinology initiate insulin on 01/23/2022 Status: Acute Assessment and Plan: Will continue to monitor blood sugars. (7) Acute blood loss anemia: Status: Acute Assessment and Plan: Patient has hemoglobin of 7.9 this a.m. Additionally she is symptomatic with dizziness. She has significant conjunctival pallor on exam bilaterally. - will transfuse 1 unit of packed RBC. Repeat CBC 1 hour after completion of unit Plan Comments: Patient not yet ready for discharge as she is currently on Mag and getting transfused 1 unit of blood. Anticipated discharge possibly tomorrow.
[2022-03-03 00:20] VITALS: BP 111/72; PULSE 80; RESP 16; TEMP 36.5; O2SAT 98
[2022-03-03] MEDS: IBUPROFEN 600 MG TABLET PO ×4 (02:39→21:33)
[2022-03-03 04:40] VITALS: BP 116/77; PULSE 80; RESP 16; TEMP 36.4; O2SAT 98
[2022-03-03 07:50] VITALS: BP 123/71; PULSE 84; RESP 16; TEMP 36.4; O2SAT 95
[2022-03-03] MEDS: DOCUSATE SODIUM 100 MG CAPSULE PO (09:18)
[2022-03-03 11:45] VITALS: BP 102/67; PULSE 85; RESP 16; TEMP 36.4; O2SAT 97
--- NOTE | 2022-03-03 12:56 | P.OBPN_ITS ---
OB - PN:Subj Subjective Date Seen: 03/03/22 Patient comments OB post-: perineal pain [place] status: feeding status: exclusively Narrative: Patient today states to be doing better. Denies any headaches, visual changes or pain in her upper abdomen. Describes bleeding as a heavy menses. Received 1 unit of PRBC yesterday, so far has not been feeling lightheaded, shortness of breath and denies any heart racing. Has been able to urinate well. Has not had a bowel movement yet. Overall feels better after discontinuation of magnesium infusion. OB - PN: Obj Exam Physical Exam: Vital signs: Temp Pulse Resp BP Pulse Ox O2 Del Method 97.5 F L 84 16 123/71 95 03/03/22 07:50 03/03/22 07:50 03/03/22 07:50 03/03/22 07:50 03/03/22 07:50 03/03/22 07:50 Narrative: Chest: Clear to auscultation bilaterally, regular rate and rhythm of the heart Abdomen: Well contracted uterus, nontender Pelvic: Normal lochia Extremities: No significant edema bilaterally on the lower extremities OB - PN: Obj Data Labs Labs: Laboratory Results - last 24 hr 03/01/22 03/02/22 03/02/22 06:40 20:08 20:08 WBC 16.40 H RBC 3.09 L Hgb 8.5 L Hct 25.4 L MCV 82 MCH 28 MCHC 34 Plt Count 249 BUN 8 Creatinine 0.8 Estimated Creat Clear 90.47 Estimated GFR 106 AST 22 ALT 11 Crossmatch ([facility]) See Detail OB - PN: A/P Vaginal Delivery Assessment and Plan (1) Gestational hypertension affecting third : Status: Resolved (2) Obesity (BMI 35.0-39.9 without comorbidity): Status: Acute (3) Third degree perineal laceration during delivery with less than 50% tear of external anal sphincter: Problem details: Continue bowel regimen Status: Acute (4) (normal spontaneous vaginal delivery): Problem details: Boy 2:28am, Apgars 9/9, Pako. Status: Acute (5) Severe preeclampsia: Problem details: Completed 24 hours of magnesium sulfate infusion , discontinued this morning at 2:30 a.m. Feeling better. No UTILITY SALES REPRESENTATIVE irritability symptoms. Blood pressures have continued to be within normal limits. Will continue to monitor vital signs and UTILITY SALES REPRESENTATIVE irritability symptoms today. Will not plan to order any new labs unless significant clinical changes such as elevated blood pressures, development of persistent headaches, visual changes or pain in the upper abdomen. If continues to do well today, patient would like to go home tomorrow. I agree, with a short-term follow-up in clinic. Status: Acute (6) Gestational diabetes: Problem details: FBS: 79, normal Follow up at 6 weeks pp with a 2hrGTT Status: Deleted (7) Acute blood loss anemia: Problem details: S/P 1PRBC yesterday, hemoglobin afterwards 8.5mg/dL. Recommend to add oral iron supplements after discharge, will order Status: Acute Plan Plan: routine care
[2022-03-03 16:00] VITALS: BP 111/62; PULSE 80; RESP 16; TEMP 36.7; O2SAT 97
[2022-03-04 01:16] VITALS: BP 124/88; PULSE 93; RESP 16; TEMP 36.4; O2SAT 99
[2022-03-04 04:47] VITALS: BP 119/78; PULSE 78; RESP 16; O2SAT 99
[2022-03-04] MEDS: IBUPROFEN 600 MG TABLET PO ×2 (04:50→12:09)
[2022-03-04 07:32] VITALS: BP 119/79; PULSE 72; RESP 16; TEMP 36.6; O2SAT 99
--- NOTE | 2022-03-04 08:38 | PM.OBDSVD1 ---
DS: Providers Provider Time Seen by Provider: 08:38 Date Seen: 03/04/22 Date of admission: 03/01/22 04:48 Primary care physician: Not a Local Provider Admitting Clinician: Neelam Delarosa CNM Attending Physician on discharge: Bree Tomlin CNM Date of Discharge: 03/04/22 Exam Const: Vital Signs, click to edit/add: Vital Signs - 24 hr 03/03/22 11:45 03/03/22 16:00 03/04/22 01:16 Temperature 97.5 F L 98.1 F 97.5 F L Pulse Rate [Pulse Oximeter] 85 80 93 Respiratory Rate 16 16 16 Blood Pressure [Le ft Arm] 102/67 111/62 124/88 Pulse Oximetry 97 97 99 Oxygen Delivery Me thod Room Air Room Air Room Air 03/04/22 04:47 03/04/22 07:32 Temperature 97.8 F Pulse Rate [Pulse Oximeter] 78 72 Respiratory Rate 16 16 Blood Pressure [Le ft Arm] 119/78 119/79 Pulse Oximetry 99 99 Oxygen Delivery Me thod Room Air Room Air Documenting provider has reviewed patient's vital signs: yes Common normals: no apparent distress, oriented x3, healthy appearing, alert and well nourished General appearance: cooperative, well kempt and well developed Orientation/consciousness: Yes awake, Yes oriented to person, Yes oriented to place and Yes oriented to time HENMT: Common normals: normocephalic and external nose normal Head and scalp: normocephalic Nose: external nose normal Eye: General eye: normal appearance of both eyes Neck & C-Spine: Common normals: full ROM and supple General: normal visual inspection Cervical spine: cervical ROM normal Chest: Common normals: inspection of chest normal and palpation of chest normal Chest: symmetrical chest wall rise Resp: Common normals: normal respiratory effort, no retractions, no use of accessory muscles and clear to auscultation bilaterally Effort & inspection: able to speak in complete sentences Auscultation: clear to auscultation bilaterally Cardio: Common normals: regular rate and regular rhythm Rate: regular rate Rhythm: regular rhythm GI: Common normals: Normal to inspection, nondistended, normoactive bowel sounds present and soft to palpation Inspection: normal to inspection Auscultation: normoactive bowel sounds Palpation: soft and tender : Common normals: external appearance normal (Repair well aproximated, no bleeding or edema) Bimanual exam- vagina & uterus: other (Involuting) Uterus: U/U and firm Lochia: small Uterus palpation: uterus tender Back & Pelvis: Common normals: thoracic and lumbar spine normal to inspection and no thoracic nor lumbar tenderness Thoracic spine/upper back: normal to inspection and thoracic ROM normal Lumbar spine/lower back: normal to inspection and lumbar ROM normal Extremity: Common normals: normal to inspection, full ROM and no pedal edema General: normal exam except as noted Neuro: Common normals: oriented x3 Sensorium/orientation: awake, alert, oriented to person, oriented to place and oriented to time Speech: speech normal Psych: Common normals: mental status grossly normal, thought process normal and speech normal Appearance: grossly normal and well kempt Attitude: calm and engaged Activity/motor behavior: appropriate eye contact Speech: normal speech Thought process: normal thought process Thought content: normal thought content Attention/concentration: attention grossly intact Memory/cognition: memory grossly intact Insight: insight good Judgement: judgment good Skin: Common normals: no rashes or lesions noted General skin exam: no rashes or lesions noted OB - DS: Summary Hospital Course Hospital Course: Citlaly is a 21 year old G 1 now P 1 at 37 6/7 weeks gestation that was admitted to the Center on 03/01/22 for IOL for severe pre-eclampsia. She had a vaginal delivery complicated by a partial 3rd degree tear. She delivered a viable male infant, Oz. She is breast feeding and it is going well. the patient has done well. Pain is well controlled with medication. Lochia is small, with no clots. Plans to discharge home today. Peripartum Data Infant delivery method: Vaginal Laceration description: Periurethral - 3rd Degree complications: none [place] Infant Gender: Male Discharge Plan: Home [place] Infant A Gender: Male (Oz) Infant Discharge Plan: Home Status at Discharge Functional status at discharge: independent ambulation Overall status at discharge: patient is progressing back to baseline Time Spent with Patient Time attestation: Total time spent providing and/or coordinating discharge services: Time spent: Less than 30 minutes Discharge Plan Discharge Disposition: Home, Self-Care Date of Admission: 03/01/22 04:48 Attending Provider on Discharge: Bree Tomlin Primary Care Provider: Provider,Not a Local Condition: Stable Anticipated Discharge Date/Time: 03/04/22 12:00 Discharge Medications: New docusate sodium 100 mg Capsule 100 mg PO BID Qty: 100 0RF ibuprofen 600 mg Tablet 600 mg PO Q6H PRNQty: 60 0RF Continued prenat.vits,gumaro,[id number] Tablet 1 tab PO QDAY albuterol sulfate 90 mcg/actuation HFA aerosol inhaler 2 inh INHALATION PRN Rx Instructions: Inhale 2 puffs as needed. Discontinued aspirin [Adult Low Dose Aspirin] 81 mg tablet,delayed release (DR/EC) 81 mg PO QDAY Discharge Orders: Discharge Order (Routine); Ordered 03/04/22 Ordered By: Bree Tomlin Patient Education: Hypertension During (DC), OB Vaginal/Breast Feeding Activity Restrictions/Additional Instructions: Follow up: 03/06/22 or 03/09/22 in clinic for blood pressure check 2 weeks: [facility] provider to screen for anxiety/depression, discuss care/feeding concerns and review control options. 6 weeks for an annual physical exam. Check blood pressure twice a day. Call if 140/90 Activity Level: Activity as Tolerated Discharge Diet: Regular Follow Up Appointments: [facility] [Provider Group] Forms: [employer] Info Instructions
[2022-03-04] MEDS: DOCUSATE SODIUM 100 MG CAPSULE PO (08:54)
== END 2022-03-04 12:10 | disposition home or self-care (01) | DRG 768 ==
LOC: OB OUT 04:53 → OB 04:53
PROVIDERS: Obstetrics & Gynecology; Admitting Provider Advanced Practice Midwife; Visit Provider Advanced Practice Midwife
DX: O24.424 Gestational diabetes mellitus in childbirth, insulin controlled (principal); Z37.0 Single live birth; D62 Acute posthemorrhagic anemia; O70.21 Third degree perineal laceration during delivery, IIIa; O14.14 Severe pre-eclampsia complicating childbirth; O62.2 Other uterine inertia; O90.81 Anemia of the puerperium; Z3A.37 37 weeks gestation of pregnancy
CPT/HCPCS: 01967; 36415; 36430; 82565; 82570; 82947; 84156; 84450; 84460; 84520; 85018; 85025; 85027; 85384; 85610; 86850; 86900; 86901; 86922; 87426; 87635; 99213; A9270; J2370; J2795; J3010; J3475; J7042; J7120; P9016; S0020

== ENCOUNTER 2022-03-06 04:27 | Emergency (ER) | payer OTHER, SELFPAY ==
[2022-03-06 04:33] VITALS: BP 141/92; PULSE 103; RESP 16; TEMP 36.9; O2SAT 98; BMI 36.0
--- NOTE | 2022-03-06 04:59 | ED_ITS ---
HPI - General Adult General Chief complaint: Vaginal Bleeding Stated complaint: Post Bleeding Time Seen by Provider: 03/06/22 04:45 Source: patient and family Mode of arrival: ambulatory Limitations: no limitations History of Present Illness HPI narrative: 21-year-old presents 5 days with concerns with blood clots when wiping. Patient shows pictures of blood clots that she passed 1 at appr oximately 8:00 p.m. which is 8 hours prior to arrival and another that passed at 3:00 a.m. which is approximately 1 hour prior to arrival. The 8:00 p.m. clot is quarter-sized, on the pictures that she shows me. The 3:00 a.m. clot is about the size of a golf ball but irregular. I see the pad that she is wearing on my exam head and they state that it has been present since about 10:00 p.m. which is about 8 hours and is only mildly saturated with red serous drainage. She had complicated by preeclampsia and acute blood loss anemia. They had a busy day including the baby's 1st checkup proceeding with a couple of clots. There is no fever, no nausea or vomiting. She is having regular bowel movements without difficulty. She had been monitoring her blood pressure and it had been well controlled until she passes 3:00 a.m. clot when she noticed some anxiety setting in. She called her obstetrical provider and checked her blood pressure then and it was about 140/90. She is not on medication for this. There were no abnormal liver enzymes when I review her antepartum labs. No abnormal platelets. She denies any neurological changes, vision changes. Obstetrical notes are reviewed. Denies any other long-term health problems or medications. Did not try any other interventions prior to coming to the hospital. Related Data Home Medications Medication Instructions Recorded Confirmed prenat.vits,gumaro,[id number] 1 tab PO QDAY 11/25/21 03/06/22 Previous Rx's Medication Instructions Recorded docusate sodium 100 mg capsule 100 mg PO BID #100 caps 03/04/22 ibuprofen 600 mg tablet 600 mg PO Q6H PRN #60 tabs 03/04/22 Allergies Allergy/AdvReac Type Severity Reaction Status Date / Time Penicillins Allergy Verified 03/06/22 04:38 Penicillin Allergy Unknown Rash Uncoded 02/23/22 09:16 Review of Systems Narrative: Negative for generalized, HEENT, respiratory, cardiovascular, GI, musculoskeletal, neurological changes notable for the anxiety and gynecological symptoms as above. [facility] Medical History Bicuspid aortic valve Gestational diabetes, diet controlled Gestational hypertension affecting third H/O prematurity (normal spontaneous vaginal delivery) (03/02/22) Obesity (BMI 35.0-39.9 without comorbidity) Recurrent urinary tract infection affecting , antepartum Severe preeclampsia Surgical History H/O resection of large bowel Social History Smoking Status: Never smoker How often do you have a drink containing alcohol: never AUDIT-C Alcohol total score: 0 Non-prescribed substance use: denies use Exam Const: Vital Signs, click to edit/add: Vital Signs - 24 hr 03/06/22 04:33 03/06/22 05:55 Temperature 98.4 F Pulse Rate [Left P ulse Oximeter] 103 H 81 Respiratory Rate 16 16 Blood Pressure [Ri ght Upper Arm] 141/92 H 133/85 Pulse Oximetry 98 98 Oxygen Delivery Me thod Room Air Room Air Documenting provider has reviewed patient's vital signs: yes General appearance: well kempt Other: Anxious but cooperative. Appears well-nourished and well-hydrated. HENMT: Common normals: normocephalic Head and scalp: normocephalic Face and sinus: normal facial exam Mouth: oral and palatal mucosa normal Throat: posterior oropharynx normal Eye: Common normals: PERRL, EOMs intact bilaterally and no scleral icterus Pupil: PERRL Neck & C-Spine: Common normals: full ROM and no lymphadenopathy Resp: Common normals: normal respiratory effort and clear to auscultation bilaterally Effort & inspection: able to speak in complete sentences Auscultation: clear to auscultation bilaterally Cardio: Common normals: regular rate, regular rhythm, S1 normal heart sound, S2 normal heart sound and no murmurs Rate: regular rate Rhythm: regular rhythm Heart sounds: S1 normal and S2 normal GI: Common normals: Normal to inspection, nondistended, normoactive bowel sounds present, soft to palpation, non-tender and no hepatosplenomegaly Palpation: soft and no hepatosplenomegaly : Other: Shoulder exam reveals no heavy bleeding. Labia are very gently parted only with a fundal exam not able to express additional blood or clots. Fundal height is about 4 cm below umbilicus, firm and nontender. Extremity: Common normals: normal to inspection and no pedal edema Neuro: Speech: speech normal Gait (neuro): normal gait Motor exam: strength 5/5 throughout Psych: Appearance: well kempt Attitude: engaged Mood and affect: anxious Thought content: normal thought content Skin: Common normals: no wounds and no jaundice Narrative: Mild scattered petechiae to face, appears nontraumatic. Likely from labor. Appears several days old, healing Course Vital Signs Vital signs: Initial Vital Signs Temperature 98.4 F 03/06/22 04:33 Temperature Source Temporal Artery Scan 03/06/22 04:33 Pulse Rate 103 H 03/06/22 04:33 Respiratory Rate 16 03/06/22 04:33 Blood Pressure 141/92 H 03/06/22 04:33 Blood Pressure Mean 108 03/06/22 04:33 Blood Pressure Position Sitting 03/06/22 04:33 Pulse Oximetry 98 03/06/22 04:33 Oxygen Delivery Method 03/06/22 04:33 Vital Signs Temperature 98.4 F 03/06/22 04:33 Pulse Rate 103 H 03/06/22 04:33 Respiratory Rate 16 03/06/22 04:33 Blood Pressure 141/92 H 03/06/22 04:33 Pulse Oximetry 98 03/06/22 04:33 Oxygen Delivery Method 03/06/22 04:33 Temperature 98.4 F 03/06/22 04:33 Pulse Rate 81 03/06/22 05:55 Respiratory Rate 16 03/06/22 05:55 Blood Pressure 133/85 03/06/22 05:55 Pulse Oximetry 98 03/06/22 05:55 Oxygen Delivery Method 03/06/22 05:55 Medical Decision Making [facility] Narrative Medical decision making narrative: Differential diagnosis includes delayed hemorrhage, persistent preeclampsia, gestational hypertension, HELLP syndrome, severe anemia. hemorrhage could be from retained products of conception, coagulopathy among other etiologies. CBCs reviewed, no signs of low platelets, leukocytosis. Hemoglobin is stable from a few days ago. I spoke with OB on- call, they recommended that she be seen in an additional couple of days with continued home monitoring of her blood pressures, rest and continuing on her vitamin with alarm symptoms reviewed. Medical Records Medical records reviewed: Yes I reviewed the patient's medical records Medical records narrative: Delivery note, antepartum course reviewed. Lab Data Lab results reviewed: Yes I reviewed the patient's lab results Labs: Lab Results 03/06/22 03/06/22 Range/Units 05:10 05:10 WBC 11.02 H (4.50-11.00) K/uL RBC 3.06 L (4.00-5.20) m/uL Hgb 8.3 L (12.0-16.0) gm/dL Hct 25.6 L (33.0-51.0) % MCV 84 (80-100) fL MCH 27 (26-34) pg MCHC 32 (32-36) gm/dL RDW Coeff of [place]ail[place] 13.8 (11.5-15.5) % Plt Count 381 (140-440) K/uL Neut % (Auto) 75.9 H (42.0-72.0) % Lymph % (Auto) 17.2 L (20-44) % Giles % (Auto) 4.4 (0.0-11.0) % Eos % (Auto) 1.7 (0.0-7.0) % Baso % (Auto) 0.2 (0.0-3.0) % Neut # (Auto) 8.40 H (1.7-7.0) K/uL Lymph # (Auto) 1.90 (0.90-2.90) K/uL Giles # (Auto) 0.50 (0.00-0.90) K/UL Eos # (Auto) 0.20 (0.00-0.50) K/uL Baso # (Auto) 0.00 (0.00-0.30) K/uL Abs Immat Gran (auto) 0.07 (0.00-0.30) K/uL Sodium 139 (135-149) mmol/L Potassium 3.3 L (3.6-5.1) mmol/L Chloride 110 (96-114) mmol/L Carbon Dioxide 22 (20-32) mmol/L BUN 8 (5-24) mg/dL Creatinine 0.5 (0.5-1.5) mg/dL Estimated Creat Clear 144.76 Estimated GFR 135 ml/min Glucose 96 (60-115) mg/dL Calcium 8.3 L (8.4-10.6) mg/dL AST 76 H (12-35) U/L Discharge Plan Discharge Clinical Impression: Anemia, Patient Disposition: Home w/ Parent or Adult Condition: Stable Instructions: Bleeding (ED) Additional Instructions: I spoke with the obstetrical provider, she would like you to be seen in the office on Wednesday, please call today to secure an appointment. Continue monitor your blood pressure at home. Would like for you to mostly rest for the next couple of days. You will notice that your having less bleeding in between the clots but that you will still passed some clots. The clot that you past this morning is as large as I would anticipate. I would expect similar ones to the clot that you had last night. Please call your OB if you start running fevers over 100.4. Your still fairly anemic but this should improve in time. Continue taking your vitamin. Activity Level: No strenuous activity and Light activity Discharge Diet: Regular Prescriptions: No Action prenat.vits,gumaro,[id number] Tablet 1 tab PO QDAY docusate sodium 100 mg Capsule 100 mg PO BID Qty: 100 0RF ibuprofen 600 mg Tablet 600 mg PO Q6H PRNQty: 60 0RF Follow Up/Referrals: Provider,Not a Local [Primary Care Provider] - Stand Alone Forms: [employer] Info Instructions
--- OUTSIDE RECORDS SUMMARY | 2022-03-06 05:08 | XMS_ITS | Encounter Summary ---
:2000 Author Organization [facility] Address [address] [place] [address] Care Team Providers Name Role Phone Chaparro Payan P.A.-C. Primary Care Provider [phone] Reason for Visit Reason Onset Date Comments Outpatient COVID-19 Testing 07/12/2020 Encounter Details Date Type Department Care Team Description 07/12/2020 External Outreach Department of Family Wood Guzman Contact With And Medicine, [facility] Abdulkadir Winter D.O. (Suspected) Exposure Building, in 2199 To COVID-19 (Primary [place], [place] Dx) [address] [facility] [address] [place], [place] [phone] [address] (Work) [phone] Social History Tobacco Use Types Packs/Day Years [...] How often do you attend anabaptism or rastafari 1 to 4 times per [...] PM CST Encounter created for COVID-19 screening. R PROJECT COORDINATION SPECIALIST documented in this encounter Plan of Treatment Not on filedocumented as of this encounter Procedures Procedure Name Priority Date/Time Associated Diagnosis Comme nts SARS CORONAVIRUS-2 Routine 07/12/2020 4:07 PM Contact With And Results for this RNA, V SOLAR PROJECT COORDINATION SPECIALIST (Suspected) Exposure procedu re are in To COVID-19 the results section. documented in this encounter Results SARS Coronavirus-2 RNA, V Asymptomatic (07/12/2020 4:07 PM SOLAR PROJECT COORDINATION SPECIALIST) [facility] Method Time Signature SARS-CoV-2 Swab, 07/13/2020 [facility] Specimen Nasopharynx 1:56 AM SOLAR PROJECT COORDINATION SPECIALIST Source SARS CoV-2 Undetected Undetected 07/13/2020 MKTO RNA, TMA 1:56 AM SOLAR PROJECT COORDINATION SPECIALIST Comment: SARS-CoV-2 RNA absent. This result does not rule out COVID-19 in the patient, as the sensitivity of the test depends o n the timing of the specimen collection and the quality of the specim en. Result should be correlated with patient's history and clinical presentat ion. ----ADDITIONAL INFORMATION---- This molecular amplification test was pe rformed using the Aptima SARS-CoV-2 assay ([employer] on the Milk Mantras tem under emergency use authorization (EUA) by the U.S. Food and Drug Administ ration. Fact sheets for this EUA assay can be fo und at the following links: For Healthcare Providers: https://www.fd a.gov/media/310200/download For Patients: https://www.fda.gov/media/ 378254/download Specimen Anatomical Collection Method Collection Time Receive d Time (Source) Location / / Volume Laterality Varies 07/12/2020 4:07 PM 02/12/202 1 8:44 (Nasopharynx) SOLAR PROJECT COORDINATION SPECIALIST PM SOLAR PROJECT COORDINATION SPECIALIST Wood Guzman D.O. LAB MICROBIOLOGY - GENERAL O JIMMY Performing Organization Address City/State/ZIP Code Phon e Number [facility]- [address] [place] [id number] [place] [address] [place] [address] [address] documented in this encounter Visit Diagnoses Diagnosis Contact With And (Suspected) Exposure To COVID-19 - Primary documented in this encounter Additional Health Concerns Infection Onset Date Last Indicated Resolved Time COVID19 Pending 07/12/2020 07/12/2020 07/13/2020 1:56 AM SOLAR PROJECT COORDINATION SPECIALIST Assessment Noted Time PHQ-9 Depression Total Score: 8 10/13/2017 12:58 PM CD T documented as of this encounter Care Teams Assistant Drafter Relationship Specialty Start Date End Date Chaparro Payan P.A.-C. PCP - General 02/05/[address] [place] [phone] documented as of this encounter
--- OUTSIDE RECORDS SUMMARY | 2022-03-06 05:08 | XMS_ITS | Encounter Summary ---
:2000 Author Organization [facility] Address [address] [place] [address] Care Team Providers Name Role Phone Chevy, Miranda Guadalupe APRN C.N.P., M.S.N. Primary Care Pr ovider Encounter Details Date Type Department Care Team Description 10/13/2017 Hospital Encounter Department of Radiology Amrita Payan, Pain Back in [facility] PBettieAEnoch [address] [facility] [address] [place] [address] [place], [place] [phone] (Wo rk) Social History Tobacco Use [...] How often do you attend hinduism or pentecostalism 1 to 4 times per [...] documented as of this encounter Care Teams Industrial Court Magistrate Relationship Specialty Start Date End Date Reece, Miranda Guadalupe APRN, C.N.P., PCP - General 02/04/18 M.S.N. [address] [place] [address] documented as of this encounter
--- OUTSIDE RECORDS SUMMARY | 2022-03-06 05:08 | XMS_ITS | Encounter Summary ---
:2000 Author Organization [facility] Address [address] [place] [address] Care Team Providers Name Role Phone Chaparro Payan P.A.-C. Primary Care Provider [phone] Encounter Details Date Type Department Care Team Description 02/28/2021 Immunization Department of [facility] Reed Barillas For COVID-19 Medicine, Chandrakant Walls M.D. Vaccine Immunization Clinic, in [address] [address] [place], [place] [phone] (Work) [phone] Social History Tobacco Use Types Packs/Day Years [...] How often do you attend faith or evangelical 1 to 4 times per [...] documented as of this encounter Care Teams Card Filer Relationship Specialty Start Date End Date Chaparro Payan P.A.-C. PCP - General 02/05/[address] [place] [phone] documented as of this encounter
--- OUTSIDE RECORDS SUMMARY | 2022-03-06 05:08 | XMS_ITS | Encounter Summary ---
:2000 Author Organization [facility] Address [address] [place] [address] Care Team Providers Name Role Phone Chaparro Payan P.A.-C. Primary Care Provider [phone] Reason for Referral Outpatient (Routine) - Closed Specialty Diagnoses / Procedures Referred By Contact Refer red To Contact Diagnoses Bicuspid Aortic Valve (HCC) Americo Bear M.D. [facility] Procedures Echo Transthoracic (TTE) - Adult Congenital [address] [place] [phone] Referral ID Status Reason Start Date Expiration Date Visits Requ ested Visits Authorized [id number] Closed 09/11/2021 09/11/2022 1 1 Reason for Visit Appointment Request (Routine) - Authorized Specialty Diagnoses / Procedures Referred By Contact Refer red To Contact Maternal and Diagnoses Bicuspid Aortic Valve (HCC) Abnormal Ultrasound [facility] Sonya Gilliland.NGurdeep [address] [place] [address] Referral ID Status Reason Start Date Expiration Date Visits V isits Requested Authorized [id number] Authorized 08/25/2021 08/25/2022 3 3 Encounter Details Date Type Department Care Team Description 09/16/2021 Routine Department of Americo Bear Bicuspid Aortic Valve Obstetrics and Silvio (HCC) (Primary Dx) Gynecology in [address] [place], [place] [address] [place] [address] [place], [place] [phone] (Work) [phone] Social History Tobacco Use Types Packs/Day Years [...] How often do you attend voodoo or rastafarian 1 to 4 times per [...] COLOR AND DOPPLER (09/16/2021 1:54 PM CDT) [facility] Method Time Signature [...] original. For the complete report, see the [employer] Documents. Final Impressions 1. Bicuspid aortic valve [...] documented as of this encounter Care Teams Composition Board Press Operator Relationship Specialty Start Date End Date Chaparro Payan P.A.-C. PCP - General 02/05/[address] [place] [phone] documented as of this encounter
--- OUTSIDE RECORDS SUMMARY | 2022-03-06 05:08 | XMS_ITS | Encounter Summary ---
:2000 Author Organization [facility] Address [address] [place] [address] Care Team Providers Name Role Phone Chevy, Miranda Guadalupe APRN C.N.PBettie, M.S.N. Primary Care Pr ovider Reason for Referral Outpatient (Routine) - Closed Specialty Diagnoses / Procedures Referred By Contact Refer red To Contact Diagnoses Bicuspid Aortic Valve (HCC) Fatigue par review Phyllis Ramírez M.D. [facility] [place] [facility] Procedures Echo Transthoracic (TTE) VT ECHO TTE 2D W DPLR COMPLETE CVD ECHO 200 [place] [address] Referral ID Status Reason Start Date Expiration Date Visits Requ ested Visits Authorized [id number] Closed 09/03/2017 03/02/2018 1 1 Reason for Visit Outpatient (Routine) - Closed Specialty Diagnoses / Procedures Referred By Contact Refer red To Contact Diagnoses Bicuspid Aortic Valve (HCC) Fatigue par review Phyllis Ramírez M.D. [facility] [place] [facility] Procedures Echo Transthoracic (TTE) VT ECHO TTE 2D W DPLR COMPLETE CVD ECHO 200 [place] [address] Referral ID Status Reason Start Date Expiration Date Visits Requ ested Visits Authorized [id number] Closed 09/03/2017 03/02/2018 1 1 Encounter Details Date Type Department Care Team Description 11/02/2017 Hospital Encounter Department of Phyllis Ramírez Aortic Valve (HCC); Cardiovascular Diseases Silvio Winter Fatigue in Ashley Frausto [address] [facility] [address] [place], [place]WEETIE FRAUSTO [address] [phone] Social History Tobacco Use Types Packs/Day Years [...] How often do you attend congregation or jain 1 to 4 times per year 08/02/2020 [...] ECHO DOPPLER COLOR (11/02/2017 8:41 AM CDT) [facility] Method Time Signature Ejection Fraction [...] documented as of this encounter Care Teams Military Source Operations Specialist Relationship Specialty Start Date End Date Reece, Miranda Guadalupe APRN, C.N.P., PCP - General 02/04/18 M.S.N. [address] [place] [phone] documented as of this encounter
--- OUTSIDE RECORDS SUMMARY | 2022-03-06 05:08 | XMS_ITS | Encounter Summary ---
:2000 Author Organization [facility] Address [address] [place] [address] Care Team Providers Name Role Phone Chaparro Payan P.A.-C. Primary Care Provider [phone] Encounter Details Date Type Department Care Team Description 09/16/2021 Hospital Encounter Department of Americo Bear [facility] Obstetrics and MJeronimo ([facility]) Gynecology in [address] [place] [address] [place] [address] [place], [place] [phone] (Work) [phone] Social History Tobacco Use Types Packs/Day Years [...] How often do you attend amish or mu-ism 1 to 4 times per [...] mg tablet Take 1 tablet by 0 bkrxcux-Yo-ivqp-FA (VINATE mouth daily. ONE) 60 mg iron-1 [...] AND OR GROWTH ABEL Exam Site: [id number] Plurality: 1 OBHx: [G:(1)] ?F [...] Read by Wing Willett on 8:30:37 AM. Loom Starter: ??Wing Willett Thank You For This Referral Procedure Note Yvonne Sanchez M.D. - 09/16/2021Forma tting of this note might be different from the original. CITLALY HOLLAND OB Exam, 09/16/2021 EXAM INFORMATION Patient Name: CITLALY HOLLAND : 2000 Age: 20 yrs Sex: Female Ref Phys: AMERICO BEAR Exam Date: 09/16/2021 Procedure: US OB FOLLOW-UP AND OR GROWTH ABEL Exam Site: [id number] Plurality: 1 OBHx: [G:(1)] F [...] by Wing Willett on 022 8:30:37 AM. Loom Starter: Wing Willett Thank You For This Referral Americo Bear M.D. IMG OB US PROCEDURES documented in this encounter Visit Diagnoses Diagnosis High Risk (HCC) documented in this encounter Additional Health Concerns Assessment Noted Time PHQ-9 Depression Total Score: 8 10/13/2017 12:58 PM CD T documented as of this encounter Care Teams Veterinary Poultry Inspector Relationship Specialty Start Date End Date Chaparro Payan P.A.-C. PCP - General 02/05/18 [address] [place] [phone] documented as of this encounter
--- OUTSIDE RECORDS SUMMARY | 2022-03-06 05:08 | XMS_ITS | Encounter Summary ---
:2000 Author Organization [facility] Address [address] [place] [address] Care Team Providers Name Role Phone Chaparro Payan P.A.-C. Primary Care Provider [phone] Reason for Referral Outpatient (Routine) - Closed Specialty Diagnoses / Procedures Referred By Contact Refer red To Contact Family Medicine Chaparro Payan P. A.-C. [address] [phone] Referral ID Status Reason Start Date Expiration Date Visits Requ ested Visits Authorized [id number] Closed 08/02/2020 08/02/2021 1 1 AND PENCIL REPAIRER Reason for Visit Reason Comments Annual Exam No concerns at this time. Appointment Request (Routine) - Closed Specialty Diagnoses / Procedures Referred By Contact Refer red To Contact Family Medicine Referral ID Status Reason Start Date Expiration Date Visits Requ ested Visits Authorized [id number] Closed 07/26/2020 07/26/2021 1 1 Encounter Details Date Type Department Care Team Description 08/02/2020 Comprehensive Visit Department of Shadia Payan Aortic Valve (HCC) (Primary Dx); Chaparro Rock P.A.-C. General Medical Examination Adult; [facility], [address] [place] [address] Pap Smear Examination; in [place], [place] Screening For Venereal Disease; [place] [address] [address] [phone] [place], [place] (Work) [phone] Social History Tobacco Use [...] How often do you attend presybeterian or taoism 1 to 4 times per [...] Comments Blood Pressure 98/64 08/02/2020 2:23 PM PEN AND PENCIL REPAIRER Pulse 84 08/02/2020 2:23 PM PEN AND PENCIL REPAIRER Temperature 36.9 ??C (98.4 ??F) 08/02/2020 2:23 PM PEN AND PENCIL REPAIRER Respiratory Rate 16 08/02/2020 2:23 PM PEN AND PENCIL REPAIRER Oxygen Saturation - - Inhaled Oxygen Concentration - - Weight 88.5 kg (195 lb 1.7 oz) 08/02/2020 2:23 PM PEN AND PENCIL REPAIRER Height 161.1 cm (5' 3.43) 08/02/2020 2:23 PM PEN AND PENCIL REPAIRER Body Mass Index 34.1 08/02/2020 2:23 PM PEN AND PENCIL REPAIRER documented in this encounter H&P Notes Chaparro [...] at a later date. Chaparro Payan P.A.-C. AND PENCIL REPAIRER documented in this encounter Plan of Treatment Scheduled Referrals Name Type Priority Associated Diagnoses Order S [facility] Medicine Outpatient Referral Routine Expec sonal: office visit 08/02/2020 (clinic) (Approximate), Expires: 08/03/2023 documented as of this encounter Procedures Procedure Name Priority Date/Time Associated Diagnosis Comme nts CHLAMYDIA/GONORRHOE Routine 08/02/2020 3:32 PM Pap Smear Re sults for this AE AMPLIFIED RNA PEN AND PENCIL REPAIRER Examination procedure are in Screening For the results Venereal Disease section. THINPREP SCREEN Routine 08/02/2020 3:30 PM Pap Smear Result s for this PEN AND PENCIL REPAIRER Examination procedure are in Screening For the results Venereal Disease section. documented in this encounter Results Chlamydia / Gonorrhoeae Amplified RNA (08/02/2020 3:32 PM PEN AND PENCIL REPAIRER) Patholo gist Method Time Signature Source Thin Prep 08/07/2020 DTL Vial, 5:29 PM PEN AND PENCIL REPAIRER Cervix/Endoc ervix Chlamydia Negative Negative 08/07/2020 DTL trachomatis 5:29 PM PEN AND PENCIL REPAIRER amplified RNA Source Thin Prep 08/07/2020 DTL Vial, 5:29 PM PEN AND PENCIL REPAIRER Cervix/Endoc ervix Neisseria Negative Negative 08/07/2020 DTL gonorrhoeae 5:29 PM PEN AND PENCIL REPAIRER amplified RNA Specimen Anatomical Collection Method Collection Time Receive d Time (Source) Location / / Volume Laterality Varies 08/02/2020 3:32 PM (Cervix/Endocerv PEN AND PENCIL REPAIRER 10:15 AM CS T ix) Chaparro Payan P.A.-C. LAB MICROBIOLOGY - GENERAL O RDERABLES Performing Organization Address City/State/ZIP Code Phon e Number [facility] - [address] [place] [phone] [facility] [place] [address] [facility] 200 [facility] ThinPrep Screen (08/02/2020 3:30 PM PEN AND PENCIL REPAIRER) Component Value Ref Test Analysis Performed Pathologis [...] AM tives CDT Report BRIAN Ward(ASCP) 08/13/2020 [facility] electronically I verify that I have [...] Laterality Varies 08/02/2020 3:30 PM 9:06 (Cervix/Endocerv PEN AND PENCIL REPAIRER AM PEN AND PENCIL REPAIRER ix) Narrative This result has an attachment that is no t available. Chaparro Payan P.A.-C. LAB PAP PATHDX ORDERABLES Performing Organization Address City/State/ZIP Code Phon e Number [facility] [address] [place] [address] [facility] [address] [place] [address] documented in this encounter Visit Diagnoses Diagnosis Bicuspid Aortic Valve (HCC) - Primary General Medical Examination Adult Pap Smear Examination Screening For Venereal Disease Nevus documented in this encounter Additional Health Concerns Assessment Noted Time PHQ-9 Depression Total Score: 8 10/13/2017 12:58 PM CD T documented as of this encounter Care Teams Pressroom Foreman Relationship Specialty Start Date End Date Chaparro Payan P.A.-C. PCP - General 02/05/[address] [place] [phone] documented as of this encounter
--- OUTSIDE RECORDS SUMMARY | 2022-03-06 05:08 | XMS_ITS | Encounter Summary ---
:2000 Author Organization [facility] Address [address] [place] [address] Care Team Providers Name Role Phone Chaparro Payan P.A.-C. Primary Care Provider [phone] Encounter Details Date Type Department Care Team Description 03/28/2020 Admin Visit Department of Family Medicine, [address] [address] [facility] [phone] Social History Tobacco Use Types Packs/Day Years [...] How often do you attend taoism or anabaptist 1 to 4 times per [...] documented as of this encounter Care Teams Recruiting Operations Consultant Relationship Specialty Start Date End Date Chaparro Payan P.A.-C. PCP - General 02/05/[address] [place] [phone] documented as of this encounter
--- OUTSIDE RECORDS SUMMARY | 2022-03-06 05:08 | XMS_ITS | Encounter Summary ---
:2000 Author Organization [facility] Address [address] [place] [address] Care Team Providers Name Role Phone Chaparro Payan P.A.-C. Primary Care Provider [phone] Reason for Referral Outpatient (Routine) - Closed Specialty Diagnoses / Procedures Referred By Contact Refer red To Contact Diagnoses Bicuspid Aortic Valve (HCC) Americo Bear M.D. [facility] Procedures Echo Transthoracic (TTE) - Adult Congenital [address] [place], [place] [phone] Referral ID Status Reason Start Date Expiration Date Visits Requ ested Visits Authorized [id number] Closed 09/11/2021 09/11/2022 1 1 Reason for Visit Outpatient (Routine) - Closed Specialty Diagnoses / Procedures Referred By Contact Refer red To Contact Diagnoses Bicuspid Aortic Valve (HCC) Americo Bear M.D. [facility] Procedures Echo Transthoracic (TTE) - Adult Congenital [address] [place], [place] [phone] Referral ID Status Reason Start Date Expiration Date Visits Requ ested Visits Authorized [id number] Closed 09/11/2021 09/11/2022 1 1 Encounter Details Date Type Department Care Team Description 09/16/2021 Hospital Encounter Department of Americo Bear Bicuspi d Aortic Cardiovascular Diseases Silvio Valve (HCC) in [facility] marya [address] [facility] [address] [place] [phone] Social History Tobacco Use Types Packs/Day Years [...] How often do you attend protestant or latter day 1 to 4 times per year 08/02/2020 [...] mg tablet Take 1 tablet by 0 hqfraee-Vu-fkzc-FA (VINATE mouth daily. ONE) 60 mg iron-1 [...] COLOR AND DOPPLER (09/16/2021 1:54 PM CDT) [facility] gist Method Time Signature Ejection Fraction [...] For the complete report, see the [employer] Documents. Final Impressions 1. Bicuspid aortic valve [...] documented as of this encounter Care Teams Box Sealing Inspector Relationship Specialty Start Date End Date Chaparro Payan P.A.-C. PCP - General 02/05/[address] [place] [phone] documented as of this encounter
--- OUTSIDE RECORDS SUMMARY | 2022-03-06 05:08 | XMS_ITS | Clinical Summary ---
:2000 Author Organization [employer] [facility] [place] [address] Care Team Providers Name Role Phone Chaparro [...] and a bicuspid aortic valve. Follow up [facility] Estimated Date of Delivery Comments Yes [...] 157.5 cm (5' 2) 07/26/2020 1:58 AM CLINICAL DATA MANAGER Body Mass Index 35.43 07/26/2020 1:58 AM CLINICAL DATA MANAGER Plan of Treatment Health Maintenance Due Date [...] Type Group BLUE CROSS BLUE CROSS OF [id number] 2015-Present [address] [place] [address] PREFERRED ONE PREFERRED ONE [id number] 2019-Present [address] [place] [address] [phone] [address] [employer] [address] (Home) [place] [address] [address] Personal/Famil Mother [phone] (Home) [address] [place] MELV[place] [phone] [employer] Employer 05/31/2000 [phone] [address] [employer] Contacts/Joppel 4 [phone] (Home) [place] [address] [employer] Employer 04/10/1911 [phone] ATTN H Enefgy [id number] RESOURCES (Home) [address] [place] [address] [phone] (Work) [place] MELVIN [phone] Care Teams Stationary Boiler Fireman Relationship Specialty Start Date End Date Chaparro Payan PA PCP - General 09/24/[address] [place] [address] [place] [phone]
--- OUTSIDE RECORDS SUMMARY | 2022-03-06 05:08 | XMS_ITS | Encounter Summary ---
:2000 Author Organization [facility] Address [address] [place] [address] Care Team Providers Name Role Phone Chaparro Payan P.A.-C. Primary Care Provider [phone] Reason for Referral Specialty Diagnoses / Procedures Referred By Contact Refer red To Contact [facility] Cli winnie [facility] Region 0 [place] [address] Referral ID Status Reason Start Date Expiration Date Visits Requ ested Visits Authorized Reason for Visit Appointment Request (Routine) - Closed Specialty Diagnoses / Procedures Referred By Contact Refer red To Contact Family Medicine Referral ID Status Reason Start Date Expiration Date Visits Requ ested Visits Authorized [id number] Closed 01/29/2021 01/29/2022 1 1 Encounter Details Date Type Department Care Team Description 02/07/[address] [facility] er For COVID-19 Medicine, [place] [facility]munization [facility], in [facility] (Primar y Dx) [place] [address] [place] [phone] Social History Tobacco Use Types Packs/Day [...] How often do you attend restorationism or congregation 1 to 4 times per [...] documented as of this encounter Care Teams Reservations Clerk Relationship Specialty Start Date End Date Chaparro Payan P.A.-C. PCP - General 02/05/[address] [place] [phone] documented as of this encounter
--- OUTSIDE RECORDS SUMMARY | 2022-03-06 05:08 | XMS_ITS | Encounter Summary ---
:2000 Author Organization [facility] Address [address] [place] [address] Care Team Providers Name Role Phone Chaparro Payan P.A.-C. Primary Care Provider [phone] Reason for Visit Reason Comments Missed phone Encounter Details Date Type Department Care Team Description 09/10/2021 Clinical Communication Department of Americo Bear Mis sed phone Obstetrics and M.D. Gynecology in [address] [place] [address] [place] [address] [place], [place] [phone] (Work) [phone] Social History Tobacco Use Types Packs/Day Years [...] How often do you attend sikh or congregation 1 to 4 times per [...] / REASON FOR CALL Communication (Pre-visit intake) Sales And Marketing Assistant: no INFORMATION DISCUSSED Patient contacted for chart [...] documented as of this encounter Care Teams Heating Element Repairer Relationship Specialty Start Date End Date Chaparro Payan P.A.-C. PCP - General 02/05/[address] [place] [phone] documented as of this encounter
--- OUTSIDE RECORDS SUMMARY | 2022-03-06 05:08 | XMS_ITS | Encounter Summary ---
:2000 Author Organization [facility] Address [address] [place] [address] Care Team Providers Name Role Phone Chaparro Payan P.A.-C. Primary Care Provider [phone] Reason for Visit Reason Comments COVID Inquiry Encounter Details Date Type Department Care Team Description 07/12/2020 Clinical Communication Department of KATHIE Sewell [facility] Hanane Mayfield [facility], [address] [address] [place], [place] [phone] (Work) [phone] Social History Tobacco Use Types Packs/Day Years [...] How often do you attend anabaptism or sikhism 1 to 4 times per [...] LABORATORY CONFIRMED case ofCOVID-19?: Yes exposure noted. [place] patient, instruct to quarantine, testing indicated (End Screening) Testing Recommendation Endpoint Is testing recommended? : Recommended to test Plan: Endpoint recommendation: Testing indicated, advised to be swabbed for COVID-19 Only , sent to [facility] located at [address] [place] [address]. The entrance is on the north side of the building. You must call [phone] during the hours of 7am to 6 [...] sending patient for testing in T or [facility], route encounter to the correct testing pool. SH REPAIRER documented in this encounter Plan of Treatment Not on filedocumented as of this encounter Visit Diagnoses Not on filedocumented in this encounter Additional Health Concerns Assessment Noted Time PHQ-9 Depression Total Score: 8 10/13/2017 12:58 PM CD T documented as of this encounter Care Teams Cotton Presser Relationship Specialty Start Date End Date Chaparro Payan P.A.-C. PCP - General 02/05/[address] [place] [phone] documented as of this encounter
--- OUTSIDE RECORDS SUMMARY | 2022-03-06 05:08 | XMS_ITS | Encounter Summary ---
:2000 Author Organization [facility] Address [address] [place] [address] Care Team Providers Name Role Phone Chaparro Payan P.A.-C. Primary Care Provider [phone] Encounter Details Date Type Department Care Team Description 06/23/2020 Admin Visit Department of Family Medicine, [address] [address] [facility] [phone] Social History Tobacco Use Types Packs/Day Years [...] How often do you attend religious or cheondoism 1 to 4 times per year 08/02/2020 [...] COVID19 Pending 06/23/2020 06/23/2020 06/24/2020 2:18 PM REGULATORY COMPLIANCE DIRECTOR Assessment Noted Time PHQ-9 Depression Total Score: 8 10/13/2017 12:58 PM CD T documented as of this encounter Care Teams Mail Delivery Supervisor Relationship Specialty Start Date End Date Chaparro Payan P.A.-C. PCP - General 02/05/[address] [place] [phone] documented as of this encounter
--- OUTSIDE RECORDS SUMMARY | 2022-03-06 05:08 | XMS_ITS | Encounter Summary ---
:2000 Author Organization [facility] Address [address] [place] [address] Care Team Providers Name Role Phone Chaparro Payan P.A.-C. Primary Care Provider [phone] Encounter Details Date Type Department Care Team Description 07/12/2020 Admin Visit Department of Family Medicine, [address] [address] [facility] [phone] Social History Tobacco Use Types Packs/Day Years [...] How often do you attend adventism or presybeterian 1 to 4 times per [...] COVID19 Pending 07/12/2020 07/12/2020 07/13/2020 1:56 AM SAAS ARCHITECT Assessment Noted Time PHQ-9 Depression Total Score: 8 10/13/2017 12:58 PM CD T documented as of this encounter Care Teams Carpenter Apprentice Relationship Specialty Start Date End Date Chaparro Payan P.A.-C. PCP - General 02/05/[address] [place] [phone] documented as of this encounter
--- OUTSIDE RECORDS SUMMARY | 2022-03-06 05:08 | XMS_ITS | Encounter Summary ---
:2000 Author Organization [facility] Address [address] [place] [address] Care Team Providers Name Role Phone Chaparro Payan P.A.-C. Primary Care Provider [phone] Encounter Details Date Type Department Care Team Description 02/20/2020 Orders Only [facility] MNT Chaparro Payan P.A.-C. [address] [place] [phone] (Wo rk) Social History [...] How often do you attend orthodox or presybeterian 1 to 4 times per [...] documented as of this encounter Care Teams Superintendent Overhead Distribution Relationship Specialty Start Date End Date Chaparro Payan P.A.-C. PCP - General 02/05/[address] [place] [phone] documented as of this encounter
--- OUTSIDE RECORDS SUMMARY | 2022-03-06 05:08 | XMS_ITS | Encounter Summary ---
:2000 Author Organization [facility] Address [address] [place] [address] Care Team Providers Name Role Phone Chaparro Payan P.A.-C. Primary Care Provider [phone] Reason for Visit Reason Comments COVID Inquiry Encounter Details Date Type Department Care Team Description 06/23/2020 Clinical [facility] [place] V[facility] Inquiry Cardiovascular Surgery Provider in [place], [place] [address] [place] [address] Social History Tobacco Use Types [...] How often do you attend sikhism or oriental orthodox 1 to 4 times [...] LABORATORY CONFIRMED case ofCOVID-19?: Yes exposure noted. [place] patient, instruct to quarantine, testing indicated (End Screening) Testing Recommendation Endpoint Is testing recommended? : Recommended to test Plan: Endpoint recommendation: Testing indicated, advised to be swabbed for COVID-19 Only , sent to [facility] located at [address] [place] [address]. The entrance is on the north side of the building. You must call [phone] for an appointment time.Testing hours are Daily [...] sending patient for testing in [facility] or [facility], route encounter to the correct testing pool. UME DESIGNER documented in this encounter Plan of Treatment Not on filedocumented as of this encounter Visit Diagnoses Not on filedocumented in this encounter Additional Health Concerns Infection Onset Date Last Indicated Resolved Time COVID19 Pending 06/23/2020 06/23/2020 06/24/2020 2:18 PM COSTUME DESIGNER Assessment Noted Time PHQ-9 Depression Total Score: 8 10/13/2017 12:58 PM CD T documented as of this encounter Care Teams Music Adapter Relationship Specialty Start Date End Date Chaparro Payan P.A.-C. PCP - General 02/05/[address] [place] [phone] documented as of this encounter
--- OUTSIDE RECORDS SUMMARY | 2022-03-06 05:08 | XMS_ITS | Encounter Summary ---
:2000 Author Organization [facility] Address [address] [place] [address] Care Team Providers Name Role Phone Chaparro Payan P.A.-C. Primary Care Provider [phone] Encounter Details Date Type Department Care Team Description 08/30/2020 Orders Only [facility] Sa daina Buckley M.D. [address] [place], [place] [phone] (Wo rk) Social History [...] How often do you attend religious or church 1 to 4 times per year 08/02/2020 [...] documented as of this encounter Care Teams Policy Writer Sales Relationship Specialty Start Date End Date Chaparro Payan P.A.-C. PCP - General 02/05/[address] [place] [phone] documented as of this encounter
--- OUTSIDE RECORDS SUMMARY | 2022-03-06 05:08 | XMS_ITS | Encounter Summary ---
:2000 Author Organization [facility] Address [address] [place] [address] Care Team Providers Name Role Phone Chaparro Payan P.A.-C. Primary Care Provider [phone] Encounter Details Date Type Department Care Team Description 08/25/2021 Orders Only Department of Mónica Noe High Risk Obstetrics and J, R.N. (Primary Dx) Gynecology in [address] [place] [address] [place] [phone] [place], [place] [phone] (Work) [phone] Social History Tobacco Use Types Packs/Day Years [...] 08/02/2020 relatives? How often do you attend jehovah's witness or mu-ism 1 to 4 times per year 08/02/2020 services? Do you belong to any clubs or organizations such No 08/02/2020 as jehovah's witness groups, unions, fraternal or athletic groups, or [...] OR GROWTH ABEL Exam Site: [facility]139 Plurality: 1 OBHx: [G:(1)] [...] Read by Wing Willett on 8:30:37 AM. Soil Conservationist: ??Wing Willett Thank You For This Referral Procedure Note Yvonne Sanchez M.D. - 09/16/2021Forma tting of this note might be different from the original. CITLALY HOLLAND OB Exam, 09/16/2021 EXAM INFORMATION Patient Name: CITLALY HOLLAND : 2000 Age: 20 yrs Sex: Female Ref Phys: AMERICO BEAR Exam Date: 09/16/2021 Procedure: US OB FOLLOW-UP AND OR GROWTH ABEL Exam Site: [facility][id number] Plurality: 1 OBHx: [G:(1)] [...] Read by Wing Willett on 8:30:37 AM. Soil Conservationist: Wing Willett Thank You For This Referral Americo Bear M.D. IMG OB US PROCEDURES documented in this encounter Visit Diagnoses Diagnosis High Risk (HCC) - Primary High Risk (HCC) documented in this encounter Additional Health Concerns Assessment Noted Time PHQ-9 Depression Total Score: 8 10/13/2017 12:58 PM CD T documented as of this encounter Care Teams Schedule Maker Relationship Specialty Start Date End Date Chaparro Payan P.A.-C. PCP - General 02/05/[address] [place] [phone] documented as of this encounter
--- OUTSIDE RECORDS SUMMARY | 2022-03-06 05:08 | XMS_ITS | Encounter Summary ---
:2000 Author Organization [facility] Address [address] [place] [address] Care Team Providers Name Role Phone Chaparro Payan P.A.-C. Primary Care Provider Reason for Referral Specialty Diagnoses / Procedures Referred By Contact Refer red To Contact Chaparro Payan P. A.-C. [facility] Region [address] [place] [address] Referral ID Status Reason Start Date Expiration Date Visits Requ ested Visits Authorized CTOR INFORMATION Encounter Details Date Type Department Care Team Description 07/30/2021 Orders Only [facility] Chaparro Payan P.A.-C. [address] [place] [phone] (Wo rk) Social History Tobacco [...] How often do you attend advent or jehovah's witness 1 to 4 times [...] documented as of this encounter Care Teams Purchasing And Fiscal Clerk Relationship Specialty Start Date End Date Chaparro Payan P.A.-C. PCP - General 02/05/[address] [place] [phone] documented as of this encounter
--- OUTSIDE RECORDS SUMMARY | 2022-03-06 05:08 | XMS_ITS | Encounter Summary ---
:2000 Author Organization [facility] Address [address] [place] [address] Care Team Providers Name Role Phone Chaparro Payan P.A.-C. Primary Care Provider [phone] Reason for Visit Reason Onset Date Comments Testing For Upper Respiratory Virus Symptoms 06/23/2020 Encounter Details Date Type Department Care Team Description 06/23/2020 External Outreach Department of Wood Guzman And Internal Medicine in [place], D.OBettie (Suspected) Exposure [place], [place] [address] [place] [address] To COVID-19 (Primary [address] [place], [place] Dx) [place] [phone] Social History Tobacco Use Types Packs/Day Years [...] How often do you attend rastafarian or yarsani 1 to 4 times per [...] Influenza, RSV, and/or Group A Strep testing. JAVA DEVELOPER documented in this encounter Plan of Treatment Not on filedocumented as of this encounter Procedures Procedure Name Priority Date/Time Associated Diagnosis Comme nts SARS CORONAVIRUS-2 Routine 06/23/2020 1:35 PM Contact With And Results for this RNA, V ATG JAVA DEVELOPER (Suspected) Exposure procedu re are in To COVID-19 the results section. documented in this encounter Results SARS Coronavirus-2 RNA, V Symptomatic (06/23/2020 1:35 PM ATG JAVA DEVELOPER) [facility] Method Time Signature SARS-CoV-2 Swab, 06/24/2020 MK[facility] Specimen Nasopharynx 2:17 PM ATG JAVA DEVELOPER Source SARS CoV-2 Undetected Undetected 06/24/2020 [facility] RNA, TMA 2:17 PM ATG JAVA DEVELOPER Comment: SARS-CoV-2 RNA absent. This result does not rule out COVID-19 in the patient, as the sensitivity of the test depends o n the timing of the specimen collection and the quality of the specim en. Result should be correlated with patient's history and clinical presentat ion. ----ADDITIONAL INFORMATION---- This molecular amplification test was pe rformed using the Aptima SARS-CoV-2 assay ([employer] on the FieldSolutionss tem under emergency use authorization (EUA) by the U.S. Food and Drug Administ ration. Fact sheets for this EUA assay can be fo und at the following links: For Healthcare Providers: https://www.fd a.gov/media/378757/download For Patients: https://www.fda.gov/media/ 640997/download Specimen Anatomical Collection Method Collection Time Receive d Time (Source) Location / / Volume Laterality Varies 06/23/2020 1:35 PM 6:28 (Nasopharynx) ATG JAVA DEVELOPER AM ATG JAVA DEVELOPER Wood Guzman D.O. LAB MICROBIOLOGY - GENERAL O RDERABLES Performing Organization Address City/State/ZIP Code Phon e Number [facility]- [address] [place] [address] [facility] [place] [address] System in [place] [address] [place] [address] documented in this encounter Visit Diagnoses Diagnosis Contact With And (Suspected) Exposure To COVID-19 - Primary documented in this encounter Additional Health Concerns Infection Onset Date Last Indicated Resolved Time COVID19 Pending 06/23/2020 06/23/2020 06/24/2020 2:18 PM ATG JAVA DEVELOPER Assessment Noted Time PHQ-9 Depression Total Score: 8 10/13/2017 12:58 PM CD T documented as of this encounter Care Teams Physical Therapist Assistant Relationship Specialty Start Date End Date Chaparro Payan P.A.-C. PCP - General 02/05/[address] [place] [phone] documented as of this encounter
--- OUTSIDE RECORDS SUMMARY | 2022-03-06 05:08 | XMS_ITS | Encounter Summary ---
:2000 Author Organization [facility] Address [address] [place] [address] Care Team Providers Name Role Phone Chaparro Payan P.A.-C. Primary Care Provider [phone] Reason for Visit Reason Onset Date Comments Outpatient COVID-19 Testing 02/28/2020 Encounter Details Date Type Department Care Team Description 02/28/2020 External Outreach Urgent Care in [place], [place] [facility] ([place] [address] [facility] [address]) DR Génesis [facility], [place] [phone] [phone] Social History Tobacco Use Types Packs/Day Years [...] How often do you attend orthodoxy or mosque 1 to 4 times per [...] RNA, V Symptomatic (02/28/2020 12:06 PM CDT) [facility] Method Time Signature SARS-CoV-2 Swab, 02/29/2020 [...] is performed using the Aptima SARS-CoV-2 assay ([employer] which has received Emergency Use Authori zation (EUA) by the U.S. Food and Drug Administration. Fact sheets for this Emergency Use Autho rization (EUA) assay can be found at the following links: For Healthcare Providers: https://www.fd a.gov/media/058345/download For Patients: https://www.fda.gov/media/ 125165/download Specimen Anatomical Collection Method Collection Time Receive d Time (Source) Location / / Volume Laterality Varies 02/28/2020 12:06 02/28/2020 7:35 (Nasopharynx) PM CDT PM CDT Kee Kemp P.A.-C. LAB MICROBIOLOGY - GENERAL O JIMMY Performing Organization Address City/State/ZIP Code Phon e Number [facility]- [facility] [place] [address] [place] [address] System in [place] [address] [place] [address] documented in this encounter Visit Diagnoses Diagnosis Infection Upper Respiratory - Primary documented in this encounter Additional Health Concerns Infection Onset Date Last Indicated Resolved Time COVID19 Pending 02/28/2020 02/28/2020 02/29/2020 4:25 AM CDT Assessment Noted Time PHQ-9 Depression Total Score: 8 10/13/2017 12:58 PM CD T documented as of this encounter Care Teams Soaking Pit Operator Relationship Specialty Start Date End Date Chaparro Payan P.A.-C. PCP - General 02/05/18 [address] [place] [address] documented as of this encounter
--- OUTSIDE RECORDS SUMMARY | 2022-03-06 05:08 | XMS_ITS | Encounter Summary ---
:2000 Author Organization [facility] Address [address] [place] [address] Care Team Providers Name Role Phone Chevy, Miranda Guadalupe APRN C.N.P., M.S.N. Primary Care Pr ovider Reason for Visit Reason Comments New Patient Outpatient (Routine) - Closed Specialty Diagnoses / Referred By Contact Referred To Contact Procedures Cardiovascular Diseases / Diagnoses Bicuspid Aortic Valve (HCC) Phyllis Ramírez, [facility] Region Cardiovascular Disease M.DBettie [address] [place] [address] Referral ID Status Reason Start Date Expiration Date Visits Requ ested Visits Authorized [id number] Closed 11/03/2017 11/03/2018 1 1 Encounter Details Date Type Department Care Team Description 11/17/2017 Comprehensive Visit Department of Rene Minor Aortic Cardiovascular TSilvio, M.P.H. Valve (HCC) Diseases in [address] [place] [address] 300 [facility] [address] [place], [place] [phone] (Work) [phone] Social History Tobacco Use Types Packs/Day Years [...] How often do you attend mandaeism or christian 1 to 4 times per [...] as of this encounter Care Teams Director Informatics Relationship Specialty Start Date End Date Miranda Reece APRN, C.N.P., PCP - General 02/04/18 M.S.N. [address] [place] [address] documented as of this encounter
--- OUTSIDE RECORDS SUMMARY | 2022-03-06 05:08 | XMS_ITS | Encounter Summary ---
:2000 Author Organization [facility] Address [address] [place] [address] Care Team Providers Name Role Phone Chevy, Miranda Guadalupe APRN C.N.P., M.S.N. Primary Care Pr ovider Reason for Visit Reason Comments Follow-up ER - [place] Encounter Details Date Type Department Care Team Description 10/13/2017 Office Visit Department of Family Chaparro Payan Bi cuspid Aortic Valve (HCC) (Primary Dx); Medicine, [facility], in [address] [facility] [address] [place], [place] [phone] (Work) [phone] Social History Tobacco Use Types Packs/Day Years [...] 10/13/2017 12:52 PM C DT Growth Chart: [facility] (Girls, 2-20 Years) documented in this [...] bothering her. 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 [address] [place] [address] documented as of this encounter
--- OUTSIDE RECORDS SUMMARY | 2022-03-06 05:08 | XMS_ITS | Encounter Summary ---
:2000 Author Organization [facility] Address [address] [place] [address] Care Team Providers Name Role Phone Chaparro Payan P.A.-C. Primary Care Provider Reason for Visit Reason Onset Date Comments Left Without Being Seen 09/16/2021 Appointment Request (Routine) - Authorized Specialty Diagnoses / Procedures Referred By Contact Refer red To Contact Maternal and Diagnoses Bicuspid Aortic Valve (HCC) Abnormal Ultrasound Jay Kebede, [facility] Audra GillilandNGurdeep [address] [place] [address] Referral ID Status Reason Start Date Expiration Date Visits V isits Requested Authorized [id number] Authorized 08/25/2021 08/25/2022 3 3 Encounter Details Date Type Department Care Team Description 09/16/2021 Comprehensive Visit Department of Shelbi Tse Proce dure And Obstetrics and M.S., CGC Treatment Not Gynecology in [address] [place] [address] Carried Out Due To [place], [place] Patient Leaving [address] [place] [phone] Prior To Being Seen [place], [place] [phone] By [facility] [phone] (Work) Provider (Primary [phone] Dx) (Fax) Social History Tobacco Use Types [...] How often do you attend sabianist or confucianism 1 to 4 times per [...] documented as of this encounter Care Teams Grinder Carbon Plant Relationship Specialty Start Date End Date Chaparro Payan P.A.-C. PCP - General 02/05/[address] [place] [phone] documented as of this encounter
--- OUTSIDE RECORDS SUMMARY | 2022-03-06 05:08 | XMS_ITS | Encounter Summary ---
:2000 Author Organization [facility] Address [address] [place] [address] Care Team Providers Name Role Phone Reece, Miranda Guadalupe APRN C.N.PBettie, M.S.N. Primary Care Pr ovider Reason for Referral Outpatient (Routine) - Closed Specialty Diagnoses / Referred By Contact Referred To Contact Procedures Cardiovascular Diseases / Diagnoses Bicuspid Aortic Valve (HCC) Phyllis Ramírez, [facility] Cardiovascular Disease Silvio [address] [place] [address] Referral ID Status Reason Start Date Expiration Date Visits Requ ested Visits Authorized [id number] Closed 11/03/2017 11/03/2018 1 1 Encounter Details Date Type Department Care Team Description 11/03/2017 Orders Only Department of [facility] Phyllis Ramírez, Bic uspid Aortic Valve Medicine, Oren Anguiano (HCC) (Primary Dx) Clinic, in [address] [facility] [id number] [place] [address] [phone] (Work) [phone] Social History Tobacco Use Types Packs/Day Years [...] How often do you attend yazdanism or yazidism 1 to 4 times per [...] documented as of this encounter Care Teams Bank Officer Relationship Specialty Start Date End Date Miranda Reece APRN, C.N.P., PCP - General 02/04/18 M.S.N. [address] [place] [address] documented as of this encounter
--- OUTSIDE RECORDS SUMMARY | 2022-03-06 05:08 | XMS_ITS | Encounter Summary ---
:1998 Author Organization [facility] Address [address] [place] [address] Care Team Providers Name Role Phone Chaparro Payan P.A.-C. Primary Care Provider [phone] Reason for Referral Outpatient (Routine) - Closed Specialty Diagnoses / Procedures Referred By Contact Refer red To Contact Diagnoses Lesion Skin Chest Chaparro Payan P.A.-C. Procedures Lesion Excision and Closure [address] [place] [phone] Referral ID Status Reason Start Date Expiration Date Visits Requ ested Visits Authorized [id number] Closed 08/12/2020 08/12/2021 1 1 Reason for Visit Reason Comments Suspicious Skin Lesion R upper breast mole removal Outpatient (Routine) - Closed Specialty Diagnoses / Procedures Referred By Contact Refer red To Contact Family Medicine Chaparro Payan P. A.-C. [facility] [address] [place] [address] Referral ID Status Reason Start Date Expiration Date Visits Requ ested Visits Authorized [id number] Closed 08/02/2020 08/02/2021 1 1 Encounter Details Date Type Department Care Team Description 08/12/2020 Office Visit Department of Family Chaparro Payan Le sion Skin Chest Medicine [facility], in [address] [address] [place] CORT[place] [phone] (Work) [phone] Social History Tobacco Use Types Packs/Day Years [...] How often do you attend restoration or latter-day 1 to 4 times per [...] Component Value Ref Test Analysis Performed At [facility] Method Time Signature 08/14/2020 JULIO 11:27 [...] 0.1 cm light mcknight skin punch. ESBMandy. [facility]/nm Interpretation FINAL DIAGNOSIS 08/14/2020 MKTO [...] LAB SURG PATH ORDERABLES Performing Organization Address [facility]/State/ZIP Code Phon e Number [facility]- [address] [place] [address] [place] [address] System in [address] Lesion Excision and Closure (08/12/2020 11:00 [...] documented as of this encounter Care Teams Team Facilitator Relationship Specialty Start Date End Date Chaparro Payan P.A.-C. PCP - General 02/05/18 [address] [place] [address] documented as of this encounter
--- OUTSIDE RECORDS SUMMARY | 2022-03-06 05:08 | XMS_ITS | Clinical Summary ---
:1998 Author Organization [facility] Address [address] [place] [address] Care Team Providers Name Role Phone Chaparro Payan P.A.-C. Primary Care Provider [phone] Source Comments Patient records contain information from all sites at [facility]. For routine questions regarding patient records, call [phone] during business hours, M-F 8:00 AM - 5:00 PM Central Time. Record requests for emergency care only can be directed to [phone] at any time.[facility] Allergies Active Allergy Reactions Severity Noted Date Comments Penicillins Rash 12/19/2007 Medications Medication Sig Dispensed Refills Start Date End Date Status ibuprofen Take 800 mg by 0 Activ e (ADVIL,MOTRIN) 200 mg mouth. tablet albuterol 90 Inhale 2 puffs as 0 09/03/2021 Active mcg/actuation inhaler needed. Take 1 tablet by 0 Act navarro vekhuzy-Wc-mvmb-FA mouth daily. (VINATE ONE) 60 mg iron-1 mg per tablet Active Problems Patient Care Coordination Note Formatting of this note might be differe nt from the original. Spouse: no Children: no Work: no AYAZ on file for mom Amy ([phone]) Problem Noted Date Overweight Body Mass Index [...] How often do you attend yarsanism or gnosticism 1 to 4 times per [...] CDT Respiratory Rate 16 08/02/2020 2:23 PM PROCESS TRAINER Oxygen Saturation 100% 09/16/2021 8:36 AM CDT [...] Address T ype Group Dates PREFERREDONE PREFERREDONE [id number] 2019-Pre [phone] PPO ADMINISTRATIVE ADMINISTRATIVE sent [phone] [place] [address] Care Teams Manager Global Relationship Specialty Start Date End Date Chaparro Payan P.A.-C. PCP - General 02/05/18 [address] [place] [phone]
--- OUTSIDE RECORDS SUMMARY | 2022-03-06 05:08 | XMS_ITS | Encounter Summary ---
:1998 Author Organization [facility] Address [address] [place] [address] Care Team Providers Name Role Phone Chaparro Payan P.A.-C. Primary Care Provider [phone] Reason for Visit Reason Onset Date Comments Outpatient COVID-19 Testing 03/27/2020 Encounter Details Date Type Department Care Team Description 03/27/2020 External Outreach Department of Wood Guzman Infect ion Upper Internal Medicine in J, D.O. Respiratory (Primary [place], [place] [address] Dx) [address] [place] [phone] Social History Tobacco Use Types Packs/Day Years [...] How often do you attend orthodoxy or faith 1 to 4 times per [...] RNA, V Symptomatic (03/28/2020 3:08 PM CDT) [facility] Method Time Signature SARS-CoV-2 Swab, 03/29/2020 [...] is performed using the Aptima SARS-CoV-2 assay ([employer] which has received Emergency Use Authori zation (EUA) by the U.S. Food and Drug Administration. Fact sheets for this Emergency Use Autho rization (EUA) assay can be found at the following links: For Healthcare Providers: https://www.fd a.gov/media/515071/download For Patients: https://www.fda.gov/media/ 648383/download Specimen Anatomical Collection Method Collection Time Receive d Time (Source) Location / / Volume Laterality Varies 03/28/2020 3:08 PM 0 1:47 (Nasopharynx) CDT AM CDT Wood Guzman D.O. LAB MICROBIOLOGY - GENERAL O RDERABROOKE Performing Organization Address City/State/ZIP Code Phon e Number [facility]- [facility] [place] [address] [place] [address] System in [place] [address] [place] [address] documented in this encounter Visit Diagnoses Diagnosis Infection Upper Respiratory - Primary documented in this encounter Additional Health Concerns Infection Onset Date Last Indicated Resolved Time COVID19 Pending 03/27/2020 03/28/2020 03/29/2020 10:23 PM CDT Assessment Noted Time PHQ-9 Depression Total Score: 8 10/13/2017 12:58 PM CD T documented as of this encounter Care Teams Grinding Supervisor Relationship Specialty Start Date End Date Chaparro Payan P.A.-C. PCP - General 02/05/18 [address] [place] [address] documented as of this encounter
--- OUTSIDE RECORDS SUMMARY | 2022-03-06 05:09 | XMS_ITS | Encounter Summary ---
:1998 Author Organization [facility] Address [address] [place] [address] Care Team Providers Name Role Phone Unavailable [...] ??Exam: US Cranial Pediatrics Indications: *PORTABLE*HEAD-FOLLOW UP ?[id number] ORIGINAL REPORT - 05-Feb-1999 17:40:00 The brain parenchyma is normal in echote xture. The ventricles are normal in size. No evidence of germinal matrix hemorrhage nor definite evidence of periventricular leukomalacia. Corpus callosum is present. I:700.120 Electronically signed by: ?? Yoli Hickman MD. ??[id number] 05-Feb-1999 17:40 Procedure Note Cecliy Hickman M.D. - 09/06/2017Form atting of this note might be different from the original. 05-Feb-1999 16:06:00 Exam: US Cranial Pe diatrics Indications: *PORTABLE*HEAD-FOLLOW UP [id number] ORIGINAL REPORT - 05-Feb-1999 17:40:00 The brain [...] 1 4:49 Robert GONZALEZ DIAGNOSTIC IMAGING PROCE [facility] general Pathology Report (01/29/1999 1:49 PM CDT) Specimen Anatomical Collection Method Collection Time Receive d Time (Source) Location / / Volume Laterality 01/29/1999 1:49 PM 9 1:49 CDT PM CDT Narrative [facility] - 01/29/1999 1:49 PM CDT [id number] Surgical Pathology Requested By: ? Ruben park M.D. ?([id number]) ?? TISSUE DESCRIPTION: ?? Distal ostomy (2.5 cm with ellipse o f skin) and proximal ostomy (5.2 cm in length) ?? [id number] A1, A2 ?? DIAGNOSIS: ?? Distal ostomy, excision: ??Benign sq uamous epithelium and colonic-type mucosa with mild chronic ?? inflammation. ?? Proximal ostomy, excision: ??Benign small bowel mucosa. ?? 29Jan1999 ?Erik TaverasS.:dam Procedure Note 08/20/2017 29Jan1999 Surgical Pathology Requested By: Ruben Shipley M.D. ([id number]) TISSUE DESCRIPTION: Distal ostomy (2.5 cm with ellipse of s kin) and proximal ostomy (5.2 cm in length) [id number] A1, A2 DIAGNOSIS: Distal ostomy, excision: Benign squamou s epithelium and colonic-type mucosa with mild chronic inflammation. Proximal ostomy, excision: Benign small bowel mucosa. 29Jan1999 Erik TaverasS.:suze toney Ruben Shipley M.D. LAB PATHOLOGY/CYTOLOGY ORDER TAYLOR Performing Organization Address City/State/ZIP Code Phon e Number [facility] - [address] Upper GI Double Contrast Without KUB [...] stomach. Electronically signed by: John Cassidy MD [phone] 28-Jan-1999 11:0 5 Hernan Maza M.D. IMLucía DIAGNOSTIC IMAGING PROCE [facility] Small Bowel (01/27/1999 2:36 PM CDT) Anatomical [...] Electronically signed by: ?? Yoli Hickman MD. ??[phone] 27-Jan-1999 15:14 Procedure Note Cecily Hickman M.D. [...] pneumotosis. Electronically signed by: Yoli Hickman MD. [id number] 27-Jan-1999 1 5:14 Robert Nick M.D. IMLucía [...] pneumotosis. Electronically signed by: Yoli Hickman MD. [id number] 27-Jan-1999 1 5:14 Robert Nick M.D. IMLucía [...] or co arctation. 2-D COMMENT: ??TAPE NUMBER: [id number]/09:45-34:40 ?Complete two-dimensional, color flow, and Doppler echocardiography [...] SYSTOLIC VALVE AREAS - ROUTIN E - BENTON VALVE ? LVOT velocity (V1) ? 0.1 [...] Hg ? Narrative 01/23/1999 12:00 AM CDT [id number] ??ECHO ?FINAL REPORT ?? REPORT DATE: 23Jan1999 REFERRING MD: ??NICU ?RESPONSIBLE MD: ??Travis PBettie Mancera [phone] PROCEDURE TYPES: ?? 2-D, Doppler Video, and Color Flow. REFERRAL DIAGNOSIS: ?? Cardiomyopathy. ??Pediatric congenit al heart disease. HEMODYNAMICS: ?? Heart rate 151 BPM. ?? BP=44/31 FINAL Procedure Note Provider, Historical - 08/31/2017Formatt ing of this note might be different from the original. [id number] ECHO FINAL REPORT REPORT DATE: 23Jan1999 REFERRING MD: NICU RESPONSIBLE MD: Jermaine Farrell [phone] PROCEDURE TYPES: 2-D, Doppler Video, and Color [...] arteriosus or coarctation. 2-D COMMENT: TAPE NUMBER: [id number]/09:45-34:40 Complete two-dimensional, color flow, a nd Doppler [...] AORTIC SYSTOLIC VALVE AREAS - ROUTINE - BENTON VALVE LVOT velocity (V1) 0.1 m/sec Peak Aortic velocity (V2) 0.4 * m/sec 0 .5-1.8 Peak Aortic time monique int(TVI2) 29.0 cm V1/V2 ratio 0.25 LVOT diameter 0.5 cm Valve area (by velocity) 0.05 cm2 Peak velocity obtained from apex TRICUSPID SYSTOLIC - ROUTINE - BENTON V ALVE Peak velocity 2.2 m/sec Maximal [...] Electronically signed by: ?? John ??Khanh MICHAEL ??[id number] 07-Jan-1999 13:50 Procedure Note Kaye Cassidy M.D. [...] 100.120 Electronically signed by: John Cassidy MD [phone] 07-Jan-1999 13:5 0 Robert Nick M.D. IMG US PROCEDURES HX SUBSEQ ORDER FOR NB? (01/03/1999 12:31 PM CDT) Specimen Anatomical Collection Method Collection Time Receive d Time (Source) Location / / Volume Laterality 01/03/1999 12:31 01/12/1999 1:14 PM CDT AM CDT Narrative [facility] - 01/03/1999 12:31 PM CDT 03 Jan 1999 ?[id number] ?Ro ?12:31 ?? Subsq Order for NB: ?Blood Component ?R BC, Irradiated Leukoreduced ?CPDA-1, Divided ?Transfused ? 04 Jan 1999 ?Unit Number Id ? [id number] Procedure Note 09/15/2017 03 Jan 1999 [id number] Ro 12:31 Subsq Order for NB: Blood Component RBC, Irradiated Leukore duced CPDA-1, Divided Transfused 04 Jan 1999 Unit Number Id [id number] Historical Provider LAB HISTORICAL ORDERS Performing Organization Address City/State/ZIP Code Phon e Number [facility] - [address] [place], [place] [address] [facility] DX Chest and Abdomen Portable 1 [...] RLQ. Electronically signed by: John Cassidy MD [id number] 02-Jan-1999 07:3 6 Braulio Franco M.D. IMG DIAGNOSTIC IMAGING PROCE [facility] DX Infant Chest and [...] Hickman MD. [phone] 01-Jan-1999 1 0:59 Braulio Frnaco M.D. IMG DIAGNOSTIC IMAGING PROCE DURES DX [...] RLQ. Electronically signed by: Yoli Hickman MD. [phone] 1 0:02 Braulio Franco M.D. IMG [...] Dave Fields Ph.D. IMG DIAGNOSTIC IMAGING PROCE [facility] DX Chest Portable 1 View (1998 6:45 [...] abdomen. Electronically signed by: ?? B.R. Bullernestina ??[phone] ([id number]) 1998 07:35 I have reviewed the films/images and agr ee with the above interpretation. Electronically signed by: ?? Yoli Hickman MD. ??[id number] 08:58 Procedure Note Cecily Hickman M.D. [...] the abdomen. Electronically signed by: Esequiel Velasco [phone] ([id number]) 1998 07 :35 I have reviewed the films/images and agr ee with the above interpretation. Electronically signed by: Yoli Hickman MD. [phone] 0 8:58 Braulio Franco M.D. IMG [...] M.D. [id number] 0 7:46 Procedure Note eGorgia Kitchen M.D. - 09/06/2017F ormatting of this [...] ?? Electronically signed by: ?? Esequiel Velasco ??[phone] ([id number]) 1998 00:24 I have reviewed the [...] of bowel. Electronically signed by: Esequiel Velasco [phone] ([id number]) 1998 00 :24 I have reviewed the films/images and agr ee with the above interpretation. Electronically signed by: Yoli Hickman MD. [phone] 1 5:39 Robert Nick M.D. IMLucía DIAGNOSTIC IMAGING [facility] DX Infant Chest and Abdomen Portable 1 [...] catheter. Electronically signed by: ?? Esequiel Velasco ??[phone] ([id number]) 1998 22:14 I have reviewed the films/images [...] Ball catheter. Electronically signed by: Esequiel Velasco [phone] ([id number]) 1998 22 :14 I have reviewed the films/images and agr ee with the above interpretation. Electronically signed by: Yoli Hickman MD. [phone] 1 5:44 Robert Nick M.D. IMLucía DIAGNOSTIC IMAGING PROCE [employer] DX Infant Chest and Abdomen Portable 1 [...] air. Electronically signed by: ?? Esequiel Velasco ??[phone] ([id number]) 1998 07:25 I have reviewed the [...] free air. Electronically signed by: Esequiel Velasco [phone] ([id number]) 1998 07 :25 I have reviewed the films/images and agr ee with the above interpretation. Electronically signed by: Yoli Hickman MD. [id number] 0 9:26 Braulio GONZALEZ DIAGNOSTIC IMAGING PROCE [facility] DX Chest Portable 1 View (1998 2:45 [...] 8:47 AM 9 1:16 CDT AM CDT [facility] 1998 8:47 AM CDT 1998 ?[id number] ?Ro ?08:47 ?? Subsq Order for NB: ?Blood Component ?R BC, Irradiated Leukoreduced ?CPDA-1, Divided ?Transfused ? 1998 ?Unit Number Id ? [id number] Procedure Note 09/15/2017 1998 [id number] Ro 08:47 Subsq Order for NB: Blood Component RBC, Irradiated Leukore duced CPDA-1, Divided Transfused 1998 Unit Number Id [id number] Historical Provider LAB HISTORICAL ORDERS Performing Organization Address City/State/ZIP Code Phon e Number [facility] - [address] [place], [place] [address] [facility] DX Chest and Abdomen Portable 1 [...] notified. Electronically signed by: ?? Mannie Fu ??[phone] ([id number]) 22-Dec-18 99 21:07 I have reviewed the films/images and agr ee with the above interpretation. Electronically signed by: ?? Chris Vega ??[phone] 21:45 Procedure Note Paolo Vega M.D. [...] notifie d. Electronically signed by: Mannie Fu [phone] ([id number]) 1998 21:07 I have reviewed the films/images and agr ee with the above interpretation. Electronically signed by: Chris Vega [phone] 21:45 Reed GONZALEZ DIAGNOSTIC IMAGING PROCE DURES HX SUBSEQ ORDER FOR NB? (1998 6:34 PM CDT) Specimen Anatomical Collection Method Collection Time Receive d Time (Source) Location / / Volume Laterality 1998 6:34 PM 9 1:16 CDT AM CDT Narrative [facility] - 1998 6:34 PM CDT 1998 ?[id number] ?Ro ?18:34 ?? Subsq Order for NB: ?Blood Component ?R BC, Irradiated Leukoreduced ?CPDA-1, Divided ?Transfused ? 1998 ?Unit Number Id ? [id number] ?Blood Component ?R BC, Irradiated Leukoreduced ?CPDA-1, Divided ?Transfused ? 1998 ?Unit Number Id ? [id number] Procedure Note 09/15/2017 1998 [id number] Ro 18:34 Subsq Order for NB: Blood Component RBC, Irradiated Leukore duced CPDA-1, Divided Transfused 1998 Unit Number Id [id number] Blood Component RBC, Irradiated Leukore duced CPDA-1, Divided Transfused 1998 Unit Number Id [id number] Historical Provider LAB HISTORICAL ORDERS Performing Organization Address City/State/ZIP Code Phon e Number [facility] - [address] [place], [place] [address] [facility] Hx general Pathology Report (1998 6:52 AM CDT) Specimen Anatomical Collection Method Collection Time Receive d Time (Source) Location / / Volume Laterality 1998 6:52 AM 9 6:52 CDT AM CDT Narrative [facility] - 1998 6:52 AM CDT [id number] Surgical Pathology Requested By: ? Bryant Maza M.D. ? ([id number]) ?? TISSUE DESCRIPTION: ?? 4 cm small bowel ?? [id number] A1 ?? DIAGNOSIS: ?? Small bowel, partial resection: ??Se gment of small bowel with marked ischemic changes, ?? consistent with necrotizing enteroco litis. ?? [id number] ?Brian Taveras.S.:mgs Procedure Note 08/20/2017 [id number] Surgical Pathology Requested By: Hernan Maza M.D. ( [id number]) TISSUE DESCRIPTION: 4 cm small bowel [id number] A1 DIAGNOSIS: Small bowel, partial resection: Segment of small bowel with marked ischemic changes, consistent with necrotizing enterocolit is. [id number] Abdi TaverasB.S.:mg s Hernan Maza M.D. LAB PATHOLOGY/CYTOLOGY ORDER TAYLOR Performing Organization Address City/State/ZIP Code Phon e Number [facility] - [address] [place], [place] [address] [facility] DX Infant Chest and Abdomen Portable [...] Robert Nick M.D. IMG DIAGNOSTIC IMAGING PROCE [facility] DX Chest and Abdomen [...] RA. Electronically signed by: ?? Esequiel Velasco ??[phone] ([id number]) 1998 06:50 I have reviewed the films/images and agr ee with the above interpretation. Electronically signed by: ?? Yoli Hickman MD. ??[id number] 12:15 Procedure Note Cecily Hickman M.D. [...] in RA. Electronically signed by: Esequiel Velasco [phone] ([id number]) 1998 06 :50 I have reviewed the films/images and agr ee with the above interpretation. Electronically signed by: Yoli Hickman MD. [phone] 1 2:15 Robert GONZALEZ DIAGNOSTIC IMAGING PROCE [facility] DX Infant Chest and [...] Robert Nick M.D. IMLucía DIAGNOSTIC IMAGING PROCE [facility] DX Abdomen Portable Anterior Posterior [...] interspace. Electronically signed by: ?? China Arrieta ??[phone] ([id number]) 1998 1 0:03 I have reviewed [...] L4-L5 interspace. Electronically signed by: China Arrieta [phone] ([id number]) 1998 10: 03 I have reviewed the films/images and agr ee with the above interpretation. Electronically signed by: John Cassidy MD [phone] 10:5 3 Historical Provider IMG DIAGNOSTIC [...] Electronically signed by: ?? Yoli Hickman MD. ??[phone] 14:12 Procedure Note Cecily Hickman M.D. [...] recommended. Electronically signed by: Yoli Hickman MD. [id number] 1 4:12 Robert Nick M.D. IMG [...] abdomen. Electronically signed by: ?? China Arrieta ??[phone] ([id number]) 1998 0 7:17 I have reviewed the films/images and agr ee with the above interpretation. Electronically signed by: ?? Yoli Hickman MD. ??[phone] 09:22 Procedure Note Cecily Hickman M.D. [...] the abdomen. Electronically signed by: China Arrieta [phone] ([id number]) 1998 07: 17 I have reviewed the films/images and agr ee with the above interpretation. Electronically signed by: Yoli Hickman MD. [phone] 0 9:22 Robert GONZALEZ DIAGNOSTIC IMAGING PROCE [facility] DX Chest Portable 1 View [...] Electronically signed by: ?? John ??Khanh MICHAEL ??[phone] 07:03 Procedure Note Kaye Cassidy M.D. - 09/06/2017Form atting of this note might be different from the original. 1998 06:56:00 Exam: Portable-Ches t Indications: follow rds ORIGINAL REPORT - 1998 07:03:00 Since yesteray, the ETT has been removed . Enteric tube, UAC, and UVC, remain in place and are unchanged in position. Pulmonary infiltrates have improved. Electronically signed by: John Cassidy MD [phone] 07:0 3 Robert Nick M.D. IMG [...] pattern. Electronically signed by: ?? China Arrieta ??[phone] ([id number]) 1998 0 7:14 I have reviewed [...] gas pattern. Electronically signed by: China Arrieta [phone] ([id number]) 1998 07: 14 I have reviewed the films/images and agr ee with the above interpretation. Electronically signed by: Chris Vega [phone] 10:51 Robert Nick M.D. [facility]IC [facility] Head (1998 3:48 PM CDT) [...] D:100.120 Electronically signed by: Yoli Hickman MD. [phone] 1 7:38 Robert Nick M.D. IMG [...] pattern. Electronically signed by: ?? China Arrieta ??[phone] ([id number]) 1998 0 7:54 I have reviewed [...] gas pattern. Electronically signed by: China Arrieta [phone] ([id number]) 1998 07: 54 I have reviewed the films/images and agr ee with the above interpretation. Electronically signed by: John Cassidy MD [phone] 09:0 1 Robert Nick M.D. IMG DIAGNOSTIC IMAGING PROCE [facility] US Head (1998 4:08 PM CDT) Anatomical Region Laterality Modality Head N/A Ultrasound Specimen (Source) Anatomical Collection Method Collection Time Re ceived Time Location / / Volume Laterality 1998 4:08 PM CDT Narrative 1998 5:29 PM CDT 1998 16:08:00 ??Exam: US Cranial Pediatrics Indications: *PORTABLE*HEAD-R/O IVH ?1ST [id number] ORIGINAL REPORT - 1998 17:29:00 I:100.705 ??No [...] Electronically signed by: ?? Yoli Hickman MD. ??[phone] 17:29 Procedure Note Cecily Hickman M.D. - 09/06/2017Form atting of this note might be different from the original. 1998 16:08:00 Exam: US Cranial Pe diatrics Indications: *PORTABLE*HEAD-R/O IVH [facility] [id number] ORIGINAL REPORT - 1998 17:29:00 I:100.705 No definite evidence of germin al matrix hemorrhage. Ventricles are normal in size. There is increased echotexture in the periventricular white matter, more prominent on the right. While this may represent a normal halo, periventricular leukomalaci a cannot be excluded. No definite evidence of intraventricular hemorrhage. Corpus callosum is present. D:100.120 Electronically signed by: Yoli Hickman MD. [id number] 1 7:29 Robert Nick M.D. IMLucía [...] Electronically signed by: ?? Yoli Hickman MD. ??[id number] 1998 08:03 Procedure Note Cecily Hickman M.D. [...] loops. Electronically signed by: Yoli Hickman MD. [phone] 0 8:03 Robert Nick M.D. IMG [...] Clinton Luna M.D. IMG DIAGNOSTIC IMAGING PROCE [facility] DX Infant Chest and [...] bowel. Electronically signed by: ?? P. A. Newport ??[phone] [id number]) 1998 23:46 I have reviewed the films/images and agr ee with the above interpretation. Electronically signed by: ?? John ??Khanh MICHAEL ??[phone] 06:13 Procedure Note Kaye Cassidy M.D. [...] mid bowel. Electronically signed by: Jermaine Gamino [phone] ([id number]) 1998 2 3:46 I have reviewed the films/images and agr ee with the above interpretation. Electronically signed by: John Cassidy MD [phone] 06:1 3 Clinton GONZALEZ DIAGNOSTIC IMAGING PROCE DURES documented in this encounter Visit Diagnoses Not on filedocumented in this encounter
--- OUTSIDE RECORDS SUMMARY | 2022-03-06 05:09 | XMS_ITS | Encounter Summary ---
:1998 Author Organization [facility] Address [address] [place] [address] Care Team Providers Name Role Phone Unavailable Primary Care Provider Unavailable Encounter Details Date Type Department Care Team Description 02/18/2011 Hospital Encounter HX [facility] FAMILYPRA Elmo Kitchen, BEL, C.N.P., D. N.P. [address] [place], [place] [address] (Wo rk) Social History [...] 08/02/2020 relatives? How often do you attend uatsdin or pentecostal 1 to 4 times per year 08/02/2020 services? Do you belong to any clubs or organizations such No 08/02/2020 as uatsdin groups, unions, fraternal or athletic groups, or [...]
--- OUTSIDE RECORDS SUMMARY | 2022-03-06 05:09 | XMS_ITS | Encounter Summary ---
:2000 Author Organization [facility] Address [address] [place] [address] Care Team Providers Name Role Phone Unavailable Primary Care Provider Unavailable Encounter Details Date Type Department Care Team Description 04/17/2011 Hospital Encounter HX [facility] Norman Payan P.A.-C. [address] [place] [address] (Wo rk) Social History Tobacco [...] How often do you attend adventist or confucianism 1 to 4 times per [...] (97 lb 7.1 oz) 04/17/2011 3:56 PM COMMODITY SPECIALIST Height 149.2 cm (4' 10.74) 04/17/2011 3:56 PM COMMODITY SPECIALIST Body Mass Index 19.86 04/17/2011 3:56 PM COMMODITY SPECIALIST Body Mass Index Percentile 69.40 % 04/17/2011 3:56 PM CS T Growth Chart: [facility] (Girls, 2-20 Years) documented in this encounter Progress Notes Mikael Payan P.A.-C. - 04/17/2011 12:00 AM CST [id number] CHIEF COMPLAINT/ REASON FOR VISIT Sport's history [...] recommend that she follow up with an shipping and receiving for further evaluation and treatment of this and otherwise she may participate in sports without any restrictions. If there are any questions or problems she will let us know, otherwise follow up as needed. TLR/kln Signed [facility] Electronically Signed By: MIKAEL PAYAN PA-C On: 04/20/2011 01:49 PM Source: [facility] MHSDOLBEYNONRADSYS Document Id: [id number] ODITY SPECIALIST documented in this encounter Procedure Notes Conversion, Historical Provider Ser - 04/17/2011 4:36 PM CST Vision Testing Vision Testing Entered On: 04/17/2011 16:36 COMMODITY SPECIALIST Performed On: 04/17/2011 16:36 COMMODITY SPECIALIST by VIVIAN PEDERSEN LPN Vision Testing Corrective Lenses : None Eye, Right w/o Correction : 20/50 Eye, Left w/o Correction : 20/70 NUVIALACHO CroweSesar Castrejon LPN - 04/17/2011 16:36 COMMODITY SPECIALIST [facility] Document Id: [id number] COMMODITY SPECIALIST!5 documented in this encounter Miscellaneous Notes Miscellaneous - Mikael Payan P.A.-C. - 04/17/2011 4:28 PM CST Ambulatory Patient Summary [address] [address] Visit Information Name: CITLALY HOLLAND Current Date: [...] Your Goals/Additional instructions: [facility] Document Id: [id number] ODITY SPECIALIST Miscellaneous - Mikael Payan P.A.-C. - 04/17/2011 4:28 PM CST Ambulatory Depart Summary [address] [id number] Visit Information Name: CITLALY HOLLAND Current Date: [...] for Pain / Fever Additional Information: Source: [facility] POWERCHART Document Id: [id number] ODITY SPECIALIST Miscellaneous - Conversion, Historical Provider Ser - 04/17/2011 3:56 PM COMMODITY SPECIALIST Pediatric Manager Of Pharmacy Intake/History Pediatric Manager Of Pharmacy Intake/History Entered On: 04/17/2011 15:59 COMMODITY SPECIALIST Performed On: 04/17/2011 15:56 COMMODITY SPECIALIST by VIVIAN PEDERSEN LPN Intake Peripheral Pulse Rate : 84/min Respiratory Rate : 20/min Systolic Blood Pressure : 106mmHg Diastolic Blood Pressure : 52mmHg NIBP Mean : 70mmHg BP Location : Right upper extremity Heart Rhythm : Regular VIVIAN PEDERSEN LPN - 04/17/2011 15:59 COMMODITY SPECIALIST Chief Complaint : Sports physical Ambulatory Intake Additional Information : Arm span:145 cm Temperature Oral : 36.7C(Converted to: 98.1DegF) Height : 149.2cm(Converted to: 4ft 11inch(es), 58.74inch(es)) Actual Weight : 44.2kg(Converted to: 97lb 7oz) Weight Source : Standing scale Dosing Weight Clinic : 44.20kg Clinic BSA : 1.35 Body Mass Index : 19.86kg/m2 VIVIAN PED[address] [facility] - 04/17/2011 15:56 COMMODITY SPECIALIST Subjective Pain Symptoms : No VIVIAN PEDERSEN EMERGENCY SPILL RESPONSE TECHNICIAN - 04/17/2011 15:56 COMMODITY SPECIALIST Dependent Habits Tobacco Use/Currently Using : No Tobacco Use/Last 12 months : No Smoking Status : Never smoker Alcohol Use : No VIVIAN PEDERSEN [facility] - 04/17/2011 15:56 COMMODITY SPECIALIST Caffeine Use Grid Caffeine Use : Current Type : Chocolate, Soft drinks Frequency : Monthly Amount : 2 times per month Last Use : today VIVIAN PEDERSEN [facility] 04/17/2011 15:56 COMMODITY SPECIALIST Recreational Drug Use Grid Drug Use : None VIVIAN PEDERSEN [facility] 04/17/2011 15:56 COMMODITY SPECIALIST Allergy Allergies (Active) penicillin Estimated Onset Date: Unspecified ; Created By: CHARO TENORIO; Reaction Status: Active ; Category: Drug ; Substance: penicillin ; Type: Allergy ; Severity: Mild ; Updated By: CHARO TENORIO; Source: Family ; Reviewed Date: 04/17/2011 15:52 COMMODITY SPECIALIST Source: [facility] POWERCHART Document Id: [id number] COMMODITY SPECIALIST!9 documented in this encounter Plan of Treatment Not on filedocumented as of this encounter Visit Diagnoses Not on filedocumented in this encounter
--- OUTSIDE RECORDS SUMMARY | 2022-03-06 05:09 | XMS_ITS | Encounter Summary ---
:2000 Author Organization [facility] Address [address] [place] [address] Care Team Providers Name Role Phone Unavailable Primary Care Provider Unavailable Encounter Details Date Type Department Care Team Description 10/09/2016 Hospital Encounter HX NO MAPPING Casper Payan P.A.-C. [address] [place] [address] (Wo rk) Social History Tobacco Use [...] often do you attend oriental orthodox or scientologist 1 to 4 times per [...] result in slightly different terminology. Coded By: RAHDA HOLLY Date Saved: 10/20/2016 01:24 pm Source: [facility] Document Id: [id number] documented in this encounter Plan of Treatment Not on filedocumented as of this encounter Visit Diagnoses Not on filedocumented in this encounter
--- OUTSIDE RECORDS SUMMARY | 2022-03-06 05:09 | XMS_ITS | Encounter Summary ---
:2000 Author Organization [facility] Address [address] [place] [address] Care Team Providers Name Role Phone Chaparro Payan P.A.-C. Primary Care Provider [phone] Reason for Referral Outpatient (Routine) - Closed Specialty Diagnoses / Procedures Referred By Contact Refer red To Contact Diagnoses Bicuspid Aortic Valve (HCC) Fatigue Phyllis Ramríez M.D. [facility] [place] [facility] Procedures ECG 12 Lead OR EKG 12 LEAD TRACE ONLY OR EKG I&R ONLY [address] [facility] [address] Referral ID Status Reason Start Date Expiration Date Visits Requ ested Visits Authorized [id number] Closed 09/03/2017 03/02/2018 1 1 Outpatient (Routine) - Closed Specialty Diagnoses / Procedures Referred By Contact Refer red To Contact Diagnoses Bicuspid Aortic Valve (HCC) Fatigue par review Phyllis Ramírez M.D. [facility] [place] [facility] Procedures Echo Transthoracic (TTE) OR ECHO TTE 2D W DPLR COMPLETE CVD ECHO [address] [place] [address] Referral ID Status Reason Start Date Expiration Date Visits Requ ested Visits Authorized [id number] Closed 09/03/2017 03/02/2018 1 1 Reason for Visit Reason Comments Annual Exam Encounter Details Date Type Department Care Team Description 09/03/2017 Comprehensive Visit Department of [place], Phyllis Well A dult Examination Abnormal (Primary Dx); Family MedicineMaggy M.D. Overweight Body Mass Index 25-29.9 Adult ; [facility], [address] [facility] Bicuspid Aortic Valve (HCC); in [place], [place] Constipation Slow Transit; [place] [address] Dysmenorrhea; [address] [facility] [address] [phone] Management Contraceptive; [place], [place] (Work) Fatigue; [address] Screening Examination For [...] How often do you attend advent or latter day 1 to 4 times [...] % 09/03/2017 10:25 AM CDT Growth Chart: [facility] (Girls, 2-20 Years) documented in this encounter [...] ECHO DOPPLER COLOR (11/02/2017 8:41 AM CDT) [facility] Method Time Signature Ejection Fraction 59 [...] Method Time Signature Source URINE, FIRST 09/06/2017 [facility] VOID 12:11 PM CDT [facility] Chlamydia Negative Negative 09/06/2017 [facility] trachomatis 12:11 PM CDT [facility] LAB Comment: ----ADDITIONAL INFORMATION---- This report is [...] - GENERAL O RDERABLES Performing Organization Address City/[facility]/ZIP Code Phon e Number [facility] [address] [place] [address] LAB ECG 12 Lead (09/03/2017 11:16 AM CDT) P athologist Signature Ventricular Rate 77 BPM MUSE ECG/Min OR Interval 136 ms MUSE QRSD Interval 80 ms MUSE QT Interval 330 ms MUSE QTC Interval 373 ms MUSE P [place] 31 degrees MUSE R [place] 7 degrees MUSE T Wave [place] 31 degrees MUSE Specimen Anatomical Collection Method Collection Time Receive d Time (Source) Location / / Volume Laterality 09/03/2017 11:16 09/03/2017 AM CDT 11:42 AM CDT Impressions MUSE - 09/03/2017 11:42 AM CDT Normal sinus rhythm Nonspecific ST abnormality No previous ECGs available Narrative This result has an attachment that is no t available. Phyllis Ramírez M.D. ECG ORDERABLES Performing Organization Address City/[facility]/ZIP Code Phon e Number MUSE MUSE NA S-TSH (Thyroid-Stimulating Hormone - Sensitive) (09/03/2017 11:08 AM CDT) P athologist Signature TSH, Sensitive 1.4 0.5 - 4.3 09/03/2017 [facility] mIU/L 1:46 PM CDT [facility] [place] [facility] Comment: Biotin has been identified by the jose matthews as a potential interfering substance. ??Higher concentr ations of biotin may be found in multivitamins, hair/nail supple ments, and workout supplements. ??If the result does not [facility] clinical observations, repeat testing after [...] e Number [facility] [employer] [address] [place] [address] LAB (ABNORMAL) Lipid Panel (09/03/2017 11:08 AM CDT) athologist Signature Cholesterol, 205 (H) mg/dL 09/03/2017 [facility] Total 1:46 PM CDT [facility] [place] [facility] Comment: ----REFERENCE VALUE---- Desirable: < 200 Borderline high: 200 - 239 High: > or = 240 Triglycerides 206 (H) mg/dL 09/03/2017 1:46 PM CDT [facility] [place] [facility] Comment: ----REFERENCE VALUE---- Normal: <150 Borderline high: 150-199 High: 200-499 Very high: > or =500 Cholesterol, HDL, S 50 >=50 mg/dL 09/03/2017 1:46 PM CDT [facility] [place] [facility] Calculated LDL 114 mg/dL 09/03/2017 1:46 PM CDT [facility] [place] [facility] Comment: ----REFERENCE VALUE---- Desirable: <100 Above Desirable: 100-129 Borderline high: 130-159 High: 160-189 Very high: > or =190 Cholesterol, Non-HDL, 155 mg/dL 09/03/2017 1:46 PM CDT [facility] [place] B Comment: ----REFERENCE VALUE---- Desirable: <130 Above Desirable: 130-159 Borderline high: 160-189 High: 190-219 Very high: > or =220 Specimen Anatomical Collection Method Collection Time Receive d Time (Source) Location / / Volume Laterality Blood (Blood, 09/03/2017 11:08 09/03/2017 1:09 Venous) AM CDT PM CDT Phyllis Ramírez M.D. LAB BLOOD ADD-ON Performing Organization Address City/[facility]/ZIP Code Phon e Number [facility] [place] [address] [place] [address] LAB AST (Aspartate Aminotransferase) (09/03/2017 11:08 AM CDT) Patholo gist Method Time Signature Aspartate 16 8 - 43 09/03/2017 [facility] Aminotransferase U/L 1:46 PM CDT [facility]- [employer] [facility] LAB Specimen Anatomical Collection Method Collection Time Receive d Time (Source) Location / / Volume Laterality Blood (Blood, 09/03/2017 11:08 09/03/2017 1:09 Venous) AM CDT PM CDT Phyllis Ramírez M.D. LAB BLOOD ADD-ON Performing Organization Address City/[facility]/ZIP Code Phon e Number [facility] [place] [address] [place] [address] LAB (ABNORMAL) BMP (Basic Metabolic Panel) (09/03/2017 11:08 AM CDT) Analysis Performed At Path logist Time Signature Potassium, S 4.1 3.6 - 5.2 09/03/2017 [facility] mmol/L 1:46 PM CDT [facility] Sodium, S 142 135 - 145 09/03/2017 [facility] mmol/L 1:46 PM CDT [facility] [place] [facility] Chloride, S 101 98 - 107 09/03/2017 [facility] mmol/L 1:46 PM CDT [facility] [place] [facility] Bicarbonate, S 30 (H) 22 - 29 09/03/2017 [facility] mmol/L 1:46 PM CDT [facility] [employer] [facility] Anion Gap 11 7 - 15 09/03/2017 [facility] 1:46 PM CDT [facility] [employer] [facility] BUN (Blood Urea 8 6 - 21 09/03/2017 [facility] Nitrogen), S mg/dL 1:46 PM CDT [facility] [place] [facility] Creatinine 0.56 (L) 0.59 - 09/03/2017 [facility] 1.04 mg/dL 1:46 PM T [facility] [employer] [facility] eGFR-Non >90 >=60 09/03/2017 [facility] Black/ mL/min/BSA 1:46 PM CDT [facility] [place] [facility] Comment: ----ADDITIONAL INFORMATION---- Estimated GFR calculated using the 2009 CKD_EPI creatinine equation. eGFR-Black/ >90 >=60 mL/min/BSA 2017 1:46 PM [facility] [employer] [facility] Comment: ----ADDITIONAL INFORMATION---- Estimated GFR calculated using the 2009 CKD_EPI creatinine equation. Calcium, Total, S 9.6 9.1 - 10.3 mg/dL 09/03/2017 1 :46 PM CDT [facility] Glucose, S 80 70 - 140 mg/dL 09/03/2017 1:46 PM CDT [facility] [employer] [facility] LAB Specimen Anatomical Collection Method Collection Time Receive d Time (Source) Location / / Volume Laterality Blood (Blood, 09/03/2017 11:08 09/03/2017 1:09 Venous) AM CDT PM CDT Phyllis Ramírez M.D. LAB BLOOD ADD-ON Performing Organization Address City/State/ZIP Code Phon e Number [facility] [employer] [address], [place] [address] LAB CBC with Differential (09/03/2017 11:08 AM CDT) P athologist Signature Hemoglobin 13.6 11.6 - 09/03/2017 [facility] 15.0 g/dL 11:36 AM T [facility] Hematocrit 40.7 35.5 - 09/03/2017 [facility] 44.9 % 11:36 AM T [facility] Erythrocytes 4.60 3.92 - 09/03/2017 [facility] 5.13 11:36 AM CDT [facility] x10(12)/L [facility] MCV 88.5 78.2 - 09/03/2017 [facility] 97.9 fL 11:36 AM T [facility] RBC Distrib Width 13.2 12.2 - 09/03/2017 [facility] 16.1 % 11:36 AM CDT [facility] [place] [facility] Platelet Count 307 157 - 371 09/03/2017 [facility] x10(9)/L 11:36 AM CDT [facility] Leukocytes 8.7 3.4 - 9.6 09/03/2017 [facility] x10(9)/L 11:36 AM CDT [facility] [place] [facility] Neutrophils 5.74 1.56 - 09/03/2017 [facility] 6.45 11:36 AM CDT HEALTH x10(9)/L SYSTEM- [place] [facility] Lymphocytes 2.36 0.95 - 09/03/2017 [facility] 3.07 11:36 AM CDT HEALTH x10(9)/L SYSTEM- [place] [facility] Monocytes 0.48 0.26 - 09/03/2017 [facility] 0.81 11:36 AM CDT HEALTH x10(9)/L SYSTEM- [place] [facility] Eosinophils 0.08 0.03 - 09/03/2017 [facility] 0.48 11:36 AM CDT HEALTH x10(9)/L SYSTEM- [place] [facility] Basophils 0.01 0.01 - 09/03/2017 [facility] 0.08 11:36 AM CDT HEALTH x10(9)/L SYSTEM- [place] [facility] Specimen Anatomical Collection Method Collection Time Receive d Time (Source) Location / / Volume Laterality Blood (Blood, 09/03/2017 11:08 09/03/2017 Venous) AM CDT 11:08 AM CDT Phyllis Ramírez M.D. LAB BLOOD ADD-ON Performing Organization Address City/State/ZIP Code Phon e Number [facility] [address] [place] [address] [place] [facility]- [address] [place], [place] [address] [place] [address] [place] [facility] documented in this encounter Visit Diagnoses Diagnosis Well Adult Examination Abnormal - Primar y Overweight Body Mass Index 25-29.9 Adult Bicuspid Aortic Valve (HCC) Constipation Slow Transit Dysmenorrhea Management Contraceptive Fatigue Screening Examination For Chlamydial Dis ease Screening Lipid Bicuspid Aortic Valve (HCC) Fatigue documented in this encounter Care Teams Set Up Technician Relationship Specialty Start Date End Date Chaparro Payan P.A.-C. PCP - General 02/05/[address] [place] [phone] documented as of this encounter
--- OUTSIDE RECORDS SUMMARY | 2022-03-06 05:09 | XMS_ITS | Encounter Summary ---
:[address] [facility] Address [address] [place] [address] Care Team Providers Name Role Phone Unavailable Primary Care Provider Unavailable Encounter Details Date Type Department Care Team Description 10/09/2016 Hospital Encounter HX FBCV FAMILYPRA Amrita Payan P.A.-C. [address] [place] [address] (Wo rk) Social History Tobacco Use [...] How often do you attend mu-ism or presybeterian 1 to 4 times per [...] Payan P.A.-C. - 10/09/2016 3:04 PM CDT [id number] CHIEF COMPLAINT/REASON FOR VISIT Sore throat. HISTORY [...] PAYAN PA-C On: 10/12/2016 09:00 AM Source: [facility] MHSDOLBEYNONRADSYS Document Id: [id number] documented in this encounter Miscellaneous Notes Miscellaneous - Mikael Payan P.A.-C. - 10/09/2016 4:34 PM CDT Ambulatory Discharge Medication List [address] [id number] Visit Information Name: CITLALY HOLLAND [facility] Number: [id number] Current Date: 10/09/2016 16:34:51 Attending [...] PA-C Signed On:09-OCT-2016 16:34:49 Additional Information: Source: [facility] POWERCHART Document Id: [id number] Miscellaneous - Mikael Payan P.A.-C. - 10/09/2016 4:34 PM CDT Ambulatory Patient Summary [address] [id number] Visit Information Name: CITLALY HOLLAND [facility] Number: [id number] Current Date: 10/09/2016 16:34:51 Physicians [...] form. Youll be asked for your [facility] number which you can find at the top of this document. Your Goals/Additional instructions: Source: [facility] POWERCHART Document Id: [id number] Miscellaneous - Roxana Hernandez L.PBettieNBettie - 10/09/2016 3:18 PM CDT Pediatric Communications Advisor Intake/History Pediatric Communications Advisor Intake/History Entered On: 10/09/2016 15:20 CDT Performed [...] Given By : Patient Languages : Sinhala Is Patient Female and 13-50 no hysterectomy [...] HERNANDEZ LPN - 10/09/2016 15:18 CDT [facility] POWERCH[facility] Document Id: [id number] CDT!45 documented in this encounter Plan of [...] Strep A Screen (10/09/2016 3:30 PM CDT) [facility] Method Time Signature HXRapid Strep POWERCHART Confirmation [...] Strep A Screen (10/09/2016 3:30 PM CDT) [facility] Method Time Signature HXStrep A POWERCHART Screen [...]
--- OUTSIDE RECORDS SUMMARY | 2022-03-06 05:09 | XMS_ITS | Encounter Summary ---
:2000 Author Organization [facility] Address [address] [place] [address] Care Team Providers Name Role Phone Unavailable [...] How often do you attend druze or congregational 1 to 4 times per [...] Electronically signed by: ?? Yoli Hickman MD. ??[id number] 1998 15:04 Procedure Note Cecily Hickman M.D. [...] AM 9 5:11 CDT PM CDT Narrative [facility] - 1998 9:09 AM CDT 1998 ?[id number] ?Ro ?09:09 ?? Subsq Order for NB: ?Blood Component ?R BC, Irradiated Leukoreduced ?CPDA-1, Divided ?Transfused ? 28 Jan 1999 ?Unit Number Id ? [id number] Procedure Note 09/15/2017 1998 [id number] Ro 09:09 Subsq Order for NB: Blood Component RBC, Irradiated Leukore duced CPDA-1, Divided Transfused 28 Jan 1999 Unit Number Id [id number] Historical Provider LAB HISTORICAL ORDERS Performing Organization Address City/State/ZIP Code Phon e Number [facility] - [address] [place] [phone] [address] Prepare Red Blood Cells (1998 9:08 AM CDT) Specimen Anatomical Collection Method Collection Time Receive d Time (Source) Location / / Volume Laterality 1998 9:08 AM 9 2:17 CDT PM CDT Narrative [facility] - 1998 9:08 AM CDT 1998 ?[id number] ?Ro ?09:08 ?? RBC TRF Order: ?ABO/RH ? O POS ?Antibody Screen ?N eg Procedure Note 09/15/2017 1998 [id number] Ro 09:08 RBC TRF Order: ABO/RH O POS Antibody Screen Neg Historical Provider BLOOD BANK PRODUCT ORDERABLE S Performing Organization Address [facility] Phon e Number [facility] - [address] ABORh, RBC (1998 9:08 AM CDT) Specimen Anatomical Collection Method Collection Time Receive d Time (Source) Location / / Volume Laterality 1998 9:08 AM 9 9:54 CDT AM CDT Narrative [facility] - 1998 9:08 AM CDT 1998 ?[id number] ?Ro ?09:08 ?? ABO and Rh Order (2): ?ABO/RH ? O POS Procedure Note 09/15/2017 1998 [id number] Ro 09:08 ABO and Rh Order (2): ABO/RH O POS Historical Provider LAB BLOOD BANK TEST ORDERABL ES Performing Organization Address [facility] Code Phon e Number [facility] - [address] DX Chest and Abdomen Portable 1 [...] Vega ??[id number] 1998 09:53 Procedure Note Paolo eVga M.D. - 09/06/2017Format ting of this note [...]
--- OUTSIDE RECORDS SUMMARY | 2022-03-06 05:09 | XMS_ITS | Encounter Summary ---
:2000 Author Organization [facility] Address [address] [place] [address] Care Team Providers Name Role Phone Unavailable Primary Care Provider Unavailable Encounter Details Date Type Department Care Team Description 04/30/2015 Hospital Encounter HX NO MAPPING Miranda Reece APRN, C.N.P., M. S.N. [address] [place], [place] [phone] (Wo rk) Social History [...] How often do you attend rastafarian or yazidism 1 to 4 times per [...] Historical Provider Ser - 04/30/2015 11:59 PM TABLE GAMES SHIFT MANAGER Coding Summary-Paper Based CODING DATE: 05/13/2015 FINAL [facility] STATUS: * Discharged to Home [...] HOLLY Date Saved: 05/13/2015 10:25 am Source[facility] Document Id: [id number] documented in this encounter Plan of Treatment Not on filedocumented as of this encounter Visit Diagnoses Not on filedocumented in this encounter
--- OUTSIDE RECORDS SUMMARY | 2022-03-06 05:09 | XMS_ITS | Encounter Summary ---
:2000 Author Organization [facility] Address [address] [place] [address] Care Team Providers Name Role Phone Unavailable Primary Care Provider Unavailable Encounter Details Date Type Department Care Team Description 01/26/2013 Hospital Encounter HX [facility]ILY[facility] Elmo Kitchen, BEL, C.N.P., D. N.P. [address] [place], [place] [address] (Wo rk) Social History [...] How often do you attend catholic or jehovah's witness 1 to 4 times [...] % 01/26/2013 10:42 AM CDT Growth Chart: [facility] (Girls, 2-20 Years) documented in this encounter H&P Notes Lisa Kitchen APRN, C.N.P. - 01/26/2013 10:25 AM CDT [id number] CHIEF COMPLAINT/REASON FOR VISIT Well-child exam and sports physical. HISTORY OF PRESENT ILLNESS The patient is a 12-year-old female who presents for her 12-year-old well-child exam. Patient was last seen by me for her 10-year-old well-child exam. Patient lives at home with her mom, dad, one brother, one sister and one cousin. She does speak Slovenian in their home. Patient does wear glasses [...] ALLERGIES See EMR. SYSTEMS REVIEW Please see [facility] 11 to 14-year-old clinic visit sheet scanned into EMR for complete details. PAST MEDICAL/SURGICAL HISTORY Unchanged see EMR. SOCIAL HISTORY Patient lives at home with her mom, dad, brother, one sister and cousin. Denies tobacco, alcohol anddrug use. Patient is not sexually active. FAMILY HISTORY Unchanged see EMR. VITAL SIGNS See EMR. PHYSICAL EXAMINATION Please see scanned-in [facility] 11 to 14-year-old clinic visit sheet and [id number] sports qualifying physical examination clearance form as [...] CRANDALL CNP On: 02/13/2013 08:43 AM Source: [facility] MHSDOLBEYNONRADSYS Document Id: [id number] documented in this encounter Procedure Notes Conversion, [...] CDT KIRSTEN HUYNH 01/26/2013 11:23 CDT Source: [employer] Document Id: [id number] CDT!5 Conversion, Historical Provider Ser - 01/26/2013 [...] KIRSTEN HUYNH - 01/26/2013 11:39 CDT Source: [employer] Document Id: [id number] CDT!5 documented in this encounter Miscellaneous Notes Miscellaneous - Lisa Kitchen APRN, CBettieN.PBettie - 01/26/2013 5:17 PM CDT Ambulatory Patient Summary [address] [address] Visit Information Name: CITLALY HOLLAND [facility] Number: [id number] Current Date: 01/26/2013 17:17:31 Physicians [...] No Appointments found Your Goals/Additional instructions: [facility] Document Id: [id number] Miscellaneous - Lisa Kitchen APRN, C.N.P. - 01/26/2013 5:17 PM CDT Ambulatory Depart Summary [address] [address] Visit Information Name: CITLALY HOLLAND [facility] Number: [id number] Visit Date: 01/26/2013 17:17:30 Attending [...] your provider for clarification. Additional Information: Source: [employer]ART Document Id: [id number] Miscellaneous - Conversion, Historical Provider Ser - 01/26/2013 10:42 AM CDT Pediatric Garbage Pick Up Man Intake/History Pediatric Garbage Pick Up Man Intake/History Entered On: 01/26/2013 10:43 CDT Performed [...] None KIRSTEN HUYNH 01/26/2013 10:42 CDT Source: [facility] POWERCHART Document Id: [id number] CDT!40 documented in this encounter Plan of Treatment Not on filedocumented as of this encounter Visit Diagnoses Not on filedocumented in this encounter
--- OUTSIDE RECORDS SUMMARY | 2022-03-06 05:09 | XMS_ITS | Encounter Summary ---
:2000 Author Organization [facility] Address [address] [place] [address] Care Team Providers Name Role Phone Unavailable Primary Care Provider Unavailable Encounter Details Date Type Department Care Team Description 04/30/2015 Hospital Encounter HX [facility] FAMILYPRA Miranda Reece APRN, C.N.P., M.S.N. [address] [place] [address] (Wo rk) Social History Tobacco Use Types [...] How often do you attend buddhist or voodoo 1 to 4 times per [...] (131 lb 2.8 oz) 04/30/2015 3:28 PM PRODUCTION GEAR CUTTER Height 158 cm (5' 2.21) 04/30/2015 3:28 PM PRODUCTION GEAR CUTTER Body Mass Index 23.83 04/30/2015 3:28 PM PRODUCTION GEAR CUTTER Body Mass Index Percentile 79.89 % 04/30/2015 3:28 PM CS T Growth Chart: [facility] (Girls, 2-20 Years) documented in this encounter H&P Notes Chevy, Miranda Guadalupe, BEL, TIFFANIE - 04/30/2015 3:19 PM CST [id number] CHIEF COMPLAINT/REASON FOR VISIT Annual physical. HISTORY [...] Jansen -C./francesca Electronically Signed By: MIRANDA REECE [facility] On: 05/21/2015 02:28 PM Source: [facility] MHSDOLBEYNONRADSYS Document Id: [id number] UCTION GEAR CUTTER documented in this encounter Miscellaneous Notes Miscellaneous - Triston Mccormick, L.P.N. - 04/30/2015 3:32 PM CST PHQ-9 - Teens PHQ-9 - Teens Entered On: 04/30/2015 15:33 PRODUCTION GEAR CUTTER Performed On: 04/30/2015 15:32 PRODUCTION GEAR CUTTER by TRISTON MCCORMICK LPN PHQ-9 - [...] try to kill yourself : No TRISTON MCCORIMCK LPN - 04/30/2015 15:32 PRODUCTION GEAR CUTTER Source: [employer] Document Id: [id number] PRODUCTION GEAR CUTTER!16 UCTION GEAR CUTTER Miscellaneous - Triston Mccormick L.P.N. - 04/30/2015 3:28 PM CST Pediatric Heat And Vent Aircraft Mechanic Intake/History Pediatric Heat And Vent Aircraft Mechanic Intake/History Entered On: 04/30/2015 15:31 PRODUCTION GEAR CUTTER Performed On: 04/30/2015 15:28 PRODUCTION GEAR CUTTER by TRISTON MCCORMICK LPN Intake Chief [...] kg/m2 TRISTON MCCORMICK LPN - 04/30/2015 15:28 PRODUCTION GEAR CUTTER General Info Accompanied By : Mother, Sibling Information Given By : Patient Languages : Korean, Arabic Is Patient Female and 13-50 no hysterectomy : Yes Status : Patient denies Are you ? : No TRISTON MCCORMICK LPN - 04/30/2015 15:28 PRODUCTION GEAR CUTTER Subjective Pain Symptoms : No TRISTON MCCORMICK LPN - 04/30/2015 15:28 PRODUCTION GEAR CUTTER Dependent Habits Exposure to Tobacco Smoke : Care provider denies smoking in home Smoking Status : Never smoker Tobacco 2A : No Alcohol Use : No TRISTON MCCORMICK LPN - 04/30/2015 15:28 PRODUCTION GEAR CUTTER Caffeine Use Grid Caffeine Use : Current Type : Chocolate, Soft drinks Frequency : Weekly Amount : 2 times per month Last Use : 04/30/15 TRISTON MCCORMICK LPN - 04/30/2015 15:28 PRODUCTION GEAR CUTTER Recreational Drug Use Grid Drug Use : None TRISTON MCCORMICK LPN - 04/30/2015 15:28 PRODUCTION GEAR CUTTER Source: [facility] WinsterCHART Document Id: [id number] PRODUCTION GEAR CUTTER!42 UCTION GEAR CUTTER documented in this encounter Plan of Treatment Not on filedocumented as of this encounter Procedures Procedure Name Priority Date/Time Associated Comments Diagnosis CHLAMYDIA/GONORRHOEAE Routine 04/30/2015 3:30 PM Results for this AMPLIFIED RNA PRODUCTION GEAR CUTTER procedure are in the results section. CHLAMYDIA TRACHOMATIS Routine 04/30/2015 3:30 PM Results for this AMPLIFIED RNA PRODUCTION GEAR CUTTER procedure are in the results section. documented in this encounter Results Chlamydia / Gonorrhoeae Amplified RNA (04/30/2015 3:30 PM PRODUCTION GEAR CUTTER) Component Value Ref Test Analysis Performed At [facility] Range Method Time Signature HX GC by Nucleic POWERCHART Acid Amplification HXFinal Negative for POWERCHART Neisseria gonorrhea by RNA amplification . HXFinal Reference: POWERCHART Negative HXFinal If you POWERCHART submitted a female urine sample, please note it is a Laboratory Developed Test. Specimen (Source) Anatomical Collection Method Collection Time Re ceived Time Location / / Volume Laterality Urine 04/30/2015 3:30 PM PRODUCTION GEAR CUTTER Miranda Reece APRN, C.N.P., M.S.N. LAB MICROB IOLOGY - GENERAL ORDERABLES Performing Organization Address City/State/ZIP Code Phon e Number POWERCHART Chlamydia Trachomatis Amplified RNA (04/30/2015 3:30 PM PRODUCTION GEAR CUTTER) Component Value Ref Test Analysis Performed At [facility] Range Method Time Signature HXChlamydia by POWERCHART Nucleic Acid Amplification HXFinal Negative for POWERCHART Chlamydia trachomatis by RNA amplification. HXFinal Reference: POWERCHART Negative HXFinal If you POWERCHART submitted a female urine sample, please note it is a Laboratory Developed Test. Specimen (Source) Anatomical Collection Method Collection Time Re ceived Time Location / / Volume Laterality Urine 04/30/2015 3:30 PM PRODUCTION GEAR CUTTER Miranda Reece APRN, C.N.P., M.S.N. LAB MICROB IOLOGY - GENERAL ORDERABLES Performing Organization Address City/State/ZIP Code Phon e Number POWERCHART documented in this encounter Visit Diagnoses Not on filedocumented in this encounter
--- OUTSIDE RECORDS SUMMARY | 2022-03-06 05:09 | XMS_ITS | Encounter Summary ---
:2000 Author Organization [facility] Address [address] [place] [address] Care Team Providers Name Role Phone Chaparro Payan P.A.-C. Primary Care Provider [phone] Encounter Details Date Type Department Care [...] How often do you attend synagogue or buddhism 1 to 4 times per [...] no amblyopia CDM Reports - EYEGEN Id: [id number] Status: Fnl documented in this encounter Plan of Treatment Not on filedocumented as of this encounter Visit Diagnoses Not on filedocumented in this encounter Additional Health Concerns Infection Onset Date Last Indicated Resolved Time COVID19 Pending 02/28/2020 02/28/2020 02/29/2020 4:25 AM CDT COVID19 Pending 03/27/2020 03/28/2020 03/29/2020 10:23 PM CDT COVID19 Pending 06/23/2020 06/23/2020 06/24/2020 2:18 PM PROVIDER NETWORK ANALYST COVID19 Pending 07/12/2020 07/12/2020 07/13/2020 1:56 AM PROVIDER NETWORK ANALYST documented as of this encounter Care Teams Sports Bookmaker Relationship Specialty Start Date End Date Chaparro Payan P.A.-C. PCP - General 02/05/[address] [place] [address] [phone] documented as of this encounter
--- OUTSIDE RECORDS SUMMARY | 2022-03-06 05:09 | XMS_ITS | Encounter Summary ---
:2000 Author Organization [facility] Address [address] [place] [address] Care Team Providers Name Role Phone Unavailable Primary Care Provider Unavailable Encounter Details Date Type Department Care Team Description 01/30/2011 Hospital Encounter HX [facility] FAMILYPRA Elmo Kitchen, BEL, C.N.P., D. N.P. [address] [place], [place] [address] (Wo rk) Social History [...] How often do you attend scientologist or gnosticism 1 to 4 times per [...] 01/30/2011 1:23 PM CD T Growth Chart: [facility] (Girls, 2-20 Years) documented in this encounter Progress Notes Lisa Kitchen APRN, C.N.P. - 01/30/2011 12:00 AM CDT [id number] CHIEF COMPLAINT / REASON FOR VISIT 12 [...] dad and patient as documented on the [facility] clinic visit sheet which will [...] CRANDALL CNP On: 02/06/2011 02:26 pm Source: [facility] MHSDOLBEYNONRADSYS Document Id: [id number] documented in this encounter Procedure Notes Conversion, Historical Provider Ser - 01/30/2011 1:23 PM CDT Vision Testing Vision Testing Entered On: 01/30/2011 13:25 CDT Performed On: 01/30/2011 13:23 CDT by CHARO TENORIO Vision Testing Corrective Lenses: Glasses Eye, Right w/o Correction: 20/80 Eye, Left w/o Correction: 20/50 CHARO TENORIO - 01/30/2011 13:23 CDT Source: [facility] POWERCHART Document Id: [id number] CDT!5 documented in this encounter Miscellaneous Notes Miscellaneous - Lisa Kitchen APRN, C.N.P. - 01/30/2011 3:09 PM CDT Ambulatory Patient Summary [address] [address] Visit Information Name: CITLALY HOLLAND [...] No Appointments found Your Goals/Additional instructions: Source: xoompark Document Id: [id number] Electronically signed by Conversion, [facility] Photographic Equipment Mechanic [id number] at 11/01/2016 2:47 PM CDT Miscellaneous - Lisa Kitchen, BEL, C.N.P. - 01/30/2011 3:09 PM CD[place] [address] Visit Information Name: CITLALY HOLLAND Current Date: [...] to the patient and/or family, guardian/caregiver. Source: [employer]oompark Document Id: [id number] Electronically signed by Conversion, [employer] Photographic Equipment Mechanic [id number] at 11/01/2016 2:47 PM CDT Miscellaneous - Conversion, Historical Provider Ser - 01/30/2011 1:23 PM CDT Pediatric Compensation Consulting Manager Intake/History Document Has Been Updated Pediatric Compensation Consulting Manager Intake/History Entered On: 01/30/2011 13:24 CDT [...] ; Reviewed Date: 01/30/2011 13:27 CDT Source: [facility] POWERCHART Document Id: [id number] CDT!3 documented in this encounter Plan of Treatment Not on filedocumented as of this encounter Visit Diagnoses Not on filedocumented in this encounter
[2022-03-06 05:17] LABS: Basophils Percent Auto 0.2 % (0.0-3.0); Eosinophils Percent Auto 1.7 % (0.0-7.0); Hematocrit 25.6 % (33.0-51.0); Hemoglobin* 8.3 gm/dL (12.0-16.0); Immature Granulocytes Abs Auto 0.07 K/uL (0.00-0.30); Lymphocytes Percent Auto 17.2 % (20-44); Mean Corpuscular HGB Conc 32 gm/dL (32-36); Mean Corpuscular Hemoglobin 27 pg (26-34); Mean Corpuscular Volume 84 fL (80-100); Monocytes Percent Auto 4.4 % (0.0-11.0); Neutrophils Percent Auto 75.9 % (42.0-72.0); Platelet Count* 381 K/uL (140-440); RDW Coefficient of Variation % 13.8 % (11.5-15.5); Red Blood Count 3.06 m/uL (4.00-5.20); Slide Review Reflex No; White Blood Count* 11.02 K/uL (4.50-11.00)
[2022-03-06 05:30] LABS: Chloride* 110 mmol/L (96-114)
[2022-03-06 05:31] LABS: Potassium* 3.3 mmol/L (3.6-5.1); Sodium* 139 mmol/L (135-149)
[2022-03-06 05:33] LABS: Creatinine* 0.5 mg/dL (0.5-1.5); Est. Creatinine Clearance* 144.76; Estimated Glomerular Filt Rate 135 ml/min
[2022-03-06 05:34] LABS: Aspartate Amino Transferase* 76 U/L (12-35); Blood Urea Nitrogen* 8 mg/dL (5-24); Calcium* 8.3 mg/dL (8.4-10.6); Carbon Dioxide* 22 mmol/L (20-32); Glucose* 96 mg/dL (60-115)
[2022-03-06 05:55] VITALS: BP 133/85; PULSE 81; RESP 16; O2SAT 98
== END 2022-03-06 06:30 | disposition home or self-care (01) ==
PROVIDERS: Emergency Provider Family Medicine
DX: O72.2 Delayed and secondary postpartum hemorrhage (principal); D64.9 Anemia, unspecified
CPT/HCPCS: 36415; 80048; 84450; 85025; 99282; 99283

== ENCOUNTER 2022-03-19 08:15 | Outpatient (CLI) | payer OTHER, SELFPAY ==
--- OUTSIDE RECORDS SUMMARY | 2022-03-19 08:19 | XMS_ITS | Encounter Summary ---
:2000 Author Organization [facility] Address [address] [place] [address] Care Team Providers Name Role Phone Chaparro Payan P.A.-C. Primary Care Provider [phone] Reason for Referral Specialty Diagnoses / Procedures Referred By Contact Refer red To Contact [facility] Cli winnie [facility] Region [address] [place] [address] Referral ID Status Reason Start Date Expiration Date Visits Requ ested Visits Authorized Reason for Visit Appointment Request (Routine) - Closed Specialty Diagnoses / Procedures Referred By Contact Refer red To Contact Family Medicine Referral ID Status Reason Start Date Expiration Date Visits Requ ested Visits Authorized [id number] Closed 01/29/2021 01/29/2022 1 1 Encounter Details Date Type Department Care Team Description 02/07/2021 Immunization Department of [facility] er For COVID-19 Medicine, [place] Vaccine I mmunization Clinic, in [facility] (Primar y Dx) [place] [address] [place] [address] Social History Tobacco Use Types Packs/Day [...] more drinks on one Never 08/02/2020 occasion? Social Isolation Answer Date Recorded In a typical week, how many times do you talk on Three times a week 08/02/2020 the phone with family, friends, or neighbors? How often do you get together with friends or Three times a week 08/02/2020 relatives? How often do you attend orthodox or episcopal 1 to 4 times per [...] Name Type Priority Associated Diagnoses Order S aundrea Covid immunization Outpatient Referral Routine Encounter For [...] of this encounter Care Teams Real Estate Management Specialist Relationship Specialty Start Date End Date Chaparro Payan P.A.-C. PCP - General 02/05/18 [address] [place] [address] documented as of this encounter
--- OUTSIDE RECORDS SUMMARY | 2022-03-19 08:19 | XMS_ITS | Encounter Summary ---
:2000 Author Organization [facility] Address [address] [place] [address] Care Team Providers Name Role Phone Chaparro Payan P.A.-C. Primary Care Provider [phone] Encounter Details Date Type Department Care Team Description 02/28/2021 Immunization Department of [facility]illas For COVID-19 Medicine, Chandrakant Walls M.D. Vaccine Immunization Clinic, in [address] [address] [place], [place] [phone] (Work) [phone] Social History Tobacco Use Types Packs/Day Years [...] How often do you attend christianity or cheondoism 1 to 4 times per [...] documented as of this encounter Care Teams Lump Room Supervisor Relationship Specialty Start Date End Date Chaparro Payan P.A.-C. PCP - General 02/05/[address] [place] [phone] documented as of this encounter
--- OUTSIDE RECORDS SUMMARY | 2022-03-19 08:19 | XMS_ITS | Encounter Summary ---
:2000 Author Organization [facility] Address [address] [place] [address] Care Team Providers Name Role Phone Chaparro Payan P.A.-C. Primary Care Provider [phone] Encounter Details Date Type Department Care Team Description 09/16/2021 Hospital Encounter Department of [facility] Obstetrics and M[facility]eronimo ([facility]) Gynecology in [address] [place] [address] [place] [address] [place], [place] [phone] (Work) [phone] Social History Tobacco Use Types Packs/Day Years [...] How often do you attend samaritan or mandaeism 1 to 4 times per [...] mg tablet Take 1 tablet by 0 hqfbond-Qe-zdwe-FA (VINATE mouth daily. ONE) 60 mg iron-1 [...] FOLLOW-UP AND OR GROWTH ABEL Exam Site: [facility][id number] Plurality: 1 OBHx: [G:(1)] [...] Read by Wing Willett on 8:30:37 AM. Review Specialist: ??Wing Willett Thank You For This Referral Procedure Note Yvonne Sanchez M.D. - 09/16/2021Forma tting of this note might be different from the original. CITLALY HOLLAND OB Exam, 09/16/2021 EXAM INFORMATION Patient Name: CITLALY HOLLAND : 2000 Age: 20 yrs Sex: Female Ref Phys: AMERICO BEAR Exam Date: 09/16/2021 Procedure: US OB FOLLOW-UP AND OR GROWTH ABEL Exam Site: [facility][id number] Plurality: 1 OBHx: [G:(1)] [...] Read by Wing Willett on 8:30:37 AM. Review Specialist: Wing Willett Thank You For This Referral Americ[facility] Bear M.D. IMG OB US PROCEDURES documented in this encounter Visit Diagnoses Diagnosis High Risk (HCC) documented in this encounter Additional Health Concerns Assessment Noted Time PHQ-9 Depression Total Score: 8 10/13/2017 12:58 PM CD T documented as of this encounter Care Teams Office Services Assistant Relationship Specialty Start Date End Date Chaparro Payan P.A.-C. PCP - General 02/05/[address] [place] [address] [phone] documented as of this encounter
--- OUTSIDE RECORDS SUMMARY | 2022-03-19 08:19 | XMS_ITS | Encounter Summary ---
:2000 Author Organization [facility] Address [address] [place] [address] Care Team Providers Name Role Phone Chaparro Payan P.A.-C. Primary Care Provider [phone] Reason for Referral Outpatient (Routine) - Closed Specialty Diagnoses / Procedures Referred By Contact Refer red To Contact Diagnoses Bicuspid Aortic Valve (HCC) Americo Bear M.D. [facility] Procedures Echo Transthoracic (TTE) - Adult Congenital [address] [place], [place] [address] Referral ID Status Reason Start Date Expiration Date Visits Requ ested Visits Authorized [id number] Closed 09/11/2021 09/11/2022 1 1 Reason for Visit Outpatient (Routine) - Closed Specialty Diagnoses / Procedures Referred By Contact Refer red To Contact Diagnoses Bicuspid Aortic Valve (HCC) Americo Bear M.D. [facility] Procedures Echo Transthoracic (TTE) - Adult Congenital [address] [place], [place] [address] Referral ID Status Reason Start Date Expiration Date Visits Requ ested Visits Authorized [id number] Closed 09/11/2021 09/11/2022 1 1 Encounter Details Date Type Department Care Team Description 09/16/2021 Hospital Encounter Department of Americo Bear Bicuspi d Aortic Cardiovascular Diseases Silvio Valve (HCC) in [facility] marya [address] [facility] [address] [place] [phone] Social History Tobacco Use Types Packs/Day Years [...] How often do you attend adventism or yarsani 1 to 4 times per [...] mg tablet Take 1 tablet by 0 zpksmds-Gk-mznv-FA (VINATE mouth daily. ONE) 60 mg iron-1 [...] COLOR AND DOPPLER (09/16/2021 1:54 PM CDT) [facility] gist Method Time Signature Ejection Fraction 64 [...] 8. No ??pericardial effusion. Procedure Note Sarah eVga M.D. - 09/16/2021Form atting of this note might be different from the original. For the complete report, see the [employer] Documents. Final Impressions 1. Bicuspid aortic valve [...] as of this encounter Care Teams Web Weaver Relationship Specialty Start Date End Date Chaparro Payan P.A.-C. PCP - General 02/05/[address] [place] [phone] documented as of this encounter
--- OUTSIDE RECORDS SUMMARY | 2022-03-19 08:19 | XMS_ITS | Encounter Summary ---
:2000 Author Organization [facility] Address [address] [place] [address] Care Team Providers Name Role Phone Chaparro Payan P.A.-C. Primary Care Provider [phone] Reason for Referral Outpatient (Routine) - Closed Specialty Diagnoses / Procedures Referred By Contact Refer red To Contact Family Medicine Chaparro Payan P. A.-C. [address] [address] Referral ID Status Reason Start Date Expiration Date Visits Requ ested Visits Authorized [id number] Closed 08/02/2020 08/02/2021 1 1 KLOAD CHECKER Reason for Visit Reason Comments Annual Exam No concerns at this time. Appointment Request (Routine) - Closed Specialty Diagnoses / Procedures Referred By Contact Refer red To Contact Family Medicine Referral ID Status Reason Start Date Expiration Date Visits Requ ested Visits Authorized [id number] Closed 07/26/2020 07/26/2021 1 1 Encounter Details Date Type Department Care Team Description 08/02/2020 Comprehensive Visit Department of Shadia Payan Aortic Valve (HCC) (Primary Dx); Chaparro Rock P.A.-C. General Medical Examination Adult; [facility], [address] [place] [address] Pap Smear Examination; in [place], [place] Screening For Venereal Disease; [place] [address] [phone] [place], [place] (Work) [phone] Social History Tobacco Use [...] How often do you attend protestant or lutheran 1 to 4 times per [...] Comments Blood Pressure 98/64 08/02/2020 2:23 PM TRUCKLOAD CHECKER Pulse 84 08/02/2020 2:23 PM TRUCKLOAD CHECKER Temperature 36.9 ??C (98.4 ??F) 08/02/2020 2:23 PM TRUCKLOAD CHECKER Respiratory Rate 16 08/02/2020 2:23 PM TRUCKLOAD CHECKER Oxygen Saturation - - Inhaled Oxygen Concentration - - Weight 88.5 kg (195 lb 1.7 oz) 08/02/2020 2:23 PM TRUCKLOAD CHECKER Height 161.1 cm (5' 3.43) 08/02/2020 2:23 PM TRUCKLOAD CHECKER Body Mass Index 34.1 08/02/2020 2:23 PM TRUCKLOAD CHECKER documented in this encounter H&P Notes Chaparro [...] at a later date. Chaparro Payan P.A.-C. KLOAD CHECKER documented in this encounter Plan of Treatment Scheduled Referrals Name Type Priority Associated Diagnoses Order S [facility] Medicine Outpatient Referral Routine Expec sonal: office visit 08/02/2020 (clinic) (Approximate), Expires: 08/03/2023 documented as of this encounter Procedures Procedure Name Priority Date/Time Associated Diagnosis Comme nts CHLAMYDIA/GONORRHOE Routine 08/02/2020 3:32 PM Pap Smear Re sults for this AE AMPLIFIED RNA TRUCKLOAD CHECKER Examination procedure are in Screening For the results Venereal Disease section. THINPREP SCREEN Routine 08/02/2020 3:30 PM Pap Smear Result s for this TRUCKLOAD CHECKER Examination procedure are in Screening For the results Venereal Disease section. documented in this encounter Results Chlamydia / Gonorrhoeae Amplified RNA (08/02/2020 3:32 PM TRUCKLOAD CHECKER) Patholo gist Method Time Signature Source Thin Prep 08/07/2020 DTL Vial, 5:29 PM TRUCKLOAD CHECKER Cervix/Endoc ervix Chlamydia Negative Negative 08/07/2020 DTL trachomatis 5:29 PM TRUCKLOAD CHECKER amplified RNA Source Thin Prep 08/07/2020 DTL Vial, 5:29 PM TRUCKLOAD CHECKER Cervix/Endoc ervix Neisseria Negative Negative 08/07/2020 DTL gonorrhoeae 5:29 PM TRUCKLOAD CHECKER amplified RNA Specimen Anatomical Collection Method Collection Time Receive d Time (Source) Location / / Volume Laterality Varies 08/02/2020 3:32 PM (Cervix/Endocerv TRUCKLOAD CHECKER 10:15 AM CS T ix) Chaparro Payan P.A.-C. LAB MICROBIOLOGY - GENERAL O RDERABLES Performing Organization Address City/State/ZIP Code Phon e Number [facility] - [address] [place] [address] 05 [facility] [place] [address] Laboratories-[facility] 200 [facility] ThinPrep Screen (08/02/2020 3:30 PM TRUCKLOAD CHECKER) Component Value Ref Test Analysis Performed Pathologis t Range Method Time At [facility] 08/13/2020 [facility] 9:16 AM CDT Pap Test Source Cervical/Endocervi 08/13/2020 [facility] gumaro 9:16 AM CDT Gross Description Received specimen 08/13/2020 [facility] Y in a ThinPrep 9:16 AM vial. CDT Clinical History well women exam 08/13/2020 [facility] 9:16 AM CDT Menstrual unknown 08/13/2020 [facility] Status(LMP, PM, 9:16 AM ) CDT Hormone None/Not known 08/13/2020 [facility] Therapy/Contracep 9:16 AM tives CDT Report BRIAN Ward(ASCP) 08/13/2020 HK electronically I verify that I have examined all relevant slides/ma terials 9:16 AM signed by for the specimen(s) and rendered or confirmed the diagnosis. CDT Interpretation Cervical/Endocervical ??(ThinPrep): 08/13/2020 [facility] Satisfactory for Evaluation 9:16 AM Negative for Intraepithelial Lesion or Malignancy CDT Specimen Anatomical Collection Method Collection Time Receive d Time (Source) Location / / Volume Laterality Varies 08/02/2020 3:30 PM 9:06 (Cervix/Endocerv TRUCKLOAD CHECKER AM TRUCKLOAD CHECKER ix) Narrative This result has an attachment that is no t available. Chaparro Payan P.A.-C. LAB PAP PATHDX ORDERABLES Performing Organization Address City/State/ZIP Code Phon e Number [facility]- [facility] [place], [place] [id number] [place] [address] [place] [address] System [facility] [address] [place] [address] documented in this encounter Visit Diagnoses Diagnosis Bicuspid Aortic Valve (HCC) - Primary General Medical Examination Adult Pap Smear Examination Screening For Venereal Disease Nevus documented in this encounter Additional Health Concerns Assessment Noted Time PHQ-9 Depression Total Score: 8 10/13/2017 12:58 PM CD T documented as of this encounter Care Teams Closet Builder Relationship Specialty Start Date End Date Chaparro Payan P.A.-C. PCP - General 02/05/[address] [place] [phone] documented as of this encounter
--- OUTSIDE RECORDS SUMMARY | 2022-03-19 08:19 | XMS_ITS | Encounter Summary ---
:2000 Author Organization [facility] Address [address] [place] [address] Care Team Providers Name Role Phone Chaparro Payan P.A.-C. Primary Care Provider [phone] Reason for Referral Specialty Diagnoses / Procedures Referred By Contact Refer red To Contact Chaparro Payan P. A.-C. [facility] Region [address] [place] [address] Referral ID Status Reason Start Date Expiration Date Visits Requ ested Visits Authorized ONAL LOAN SPECIALIST Encounter Details Date Type Department Care Team Description 07/30/2021 Orders Only [facility] PCP [facility] Chaparro Payan P.A.-C. [address] [place] [phone] (Wo rk) Social History Tobacco [...] How often do you attend jew or adventism 1 to 4 times per [...] documented as of this encounter Care Teams Seaman Relationship Specialty Start Date End Date Chaparro Payan P.A.-C. PCP - General 02/05/[address] [place] [phone] documented as of this encounter
--- OUTSIDE RECORDS SUMMARY | 2022-03-19 08:19 | XMS_ITS | Encounter Summary ---
:2000 Author Organization [facility] Address [address] [place] [address] Care Team Providers Name Role Phone Chaparro Payan P.A.-C. Primary Care Provider [phone] Reason for Visit Reason Onset Date Comments Left Without Being Seen 09/16/2021 Appointment Request (Routine) - Authorized Specialty Diagnoses / Procedures Referred By Contact Refer red To Contact Maternal and Diagnoses Bicuspid Aortic Valve (HCC) Abnormal Ultrasound Jay Kebede, [facility] Audra GillilandNGurdeep [address] [place] [address] Referral ID Status Reason Start Date Expiration Date Visits V isits Requested Authorized [id number] Authorized 08/25/2021 08/25/2022 3 3 Encounter Details Date Type Department Care Team Description 09/16/2021 Comprehensive Visit Department of Shelbi Tse Proce dure And Obstetrics and M.S., CGC Treatment Not Gynecology in [address] [place] [address] Carried Out Due To [place], [place] Patient Leaving [address] [place] [phone] Prior To Being Seen [place], [place] [phone] By [facility] [phone] (Work) Provider (Primary [phone] Dx) (Fax) Social History Tobacco Use Types [...] How often do you attend yazidism or jewish 1 to 4 times per [...] before being seen by Shelbi Tse M.S., CGC. documented in this encounter Plan of Treatment [...] documented as of this encounter Care Teams Social Security Specialist Relationship Specialty Start Date End Date Chaparro Payan P.A.-C. PCP - General 02/05/[address] [place] [phone] documented as of this encounter
--- OUTSIDE RECORDS SUMMARY | 2022-03-19 08:19 | XMS_ITS | Encounter Summary ---
:2000 Author Organization [facility] Address [address] [place] [address] Care Team Providers Name Role Phone Chaparro Payan P.A.-C. Primary Care Provider [phone] Reason for Referral Outpatient (Routine) - Closed Specialty Diagnoses / Procedures Referred By Contact Refer red To Contact Diagnoses Lesion Skin Chest Chaparro Payan P.A.-C. Procedures Lesion Excision and Closure [address] [place] [phone] Referral ID Status Reason Start Date Expiration Date Visits Requ ested Visits Authorized [id number] Closed 08/12/2020 08/12/2021 1 1 Reason for Visit Reason Comments Suspicious Skin Lesion R upper breast mole removal Outpatient (Routine) - Closed Specialty Diagnoses / Procedures Referred By Contact Refer red To Contact Family Medicine Chaparro Payan P. A.-C. [facility] [address] [place] [address] Referral ID Status Reason Start Date Expiration Date Visits Requ ested Visits Authorized [id number] Closed 08/02/2020 08/02/2021 1 1 Encounter Details Date Type Department Care Team Description 08/12/2020 Office Visit Department of Family Chaparro Payan Le sion Skin Chest Medicine [facility] (Primary Dx) Clinic, in [address] [phone] [place] C[place] [phone] (Work) [phone] Social History Tobacco Use Types Packs/Day Years [...] How often do you attend episcopalian or mu-ism 1 to 4 times per [...] Component Value Ref Test Analysis Performed At [facility] Range Method Time Signature 08/14/2020 JULIO 11:27 [...] of 0.1 cm light mcknight skin punch. ESChikis Galvan [facility]/nm Interpretation FINAL DIAGNOSIS 08/14/2020 MKTO [...] LAB SURG PATH ORDERABLES Performing Organization Address [facility]/State/ZIP Code Phon e Number [facility]- [address] [place] [address] [place] [address] System [address] Lesion Excision and Closure (08/12/2020 11:00 [...] documented as of this encounter Care Teams Garage Hand Relationship Specialty Start Date End Date Chaparro Payan P.A.-C. PCP - General 02/05/18 [address] [place] [phone] documented as of this encounter
--- OUTSIDE RECORDS SUMMARY | 2022-03-19 08:19 | XMS_ITS | Clinical Summary ---
:2000 Author Organization [facility] [place] [address] Care Team Providers Name Role Phone Chaparro [...] and a bicuspid aortic valve. Follow up [facility] Estimated Date of Delivery Comments Yes [...] 157.5 cm (5' 2) 07/26/2020 1:58 AM NEWSPAPER DISTRIBUTOR SUPERVISOR Body Mass Index 35.43 07/26/2020 1:58 AM NEWSPAPER DISTRIBUTOR SUPERVISOR Plan of Treatment Health Maintenance Due Date [...] Type Group BLUE CROSS BLUE CROSS OF [id number] 2015-Present [address] [place] [address] PREFERRED ONE PREFERRED ONE [id number] 2019-Present [address] [place] [address] [phone] [address] [employer] [address] (Home) [place] [address] [address] Personal/Famil Mother [phone] (Home) [address] [place] MELVIN [address] [employer] Occ Employer 05/31/2000 [phone] [address] [employer] 4 [phone] (Home) [place] [address] [address] [employer] Occ Employer 04/10/1911 [phone] ATTN H [employer] [id number] [employer] (Home) [address] [place] [address] [phone] [address] (Work) [place] MELVIN [phone] Care Teams Plush Weaver Relationship Specialty Start Date End Date Chaparro Payan PA PCP - General 09/24/[address] [place] [address] [place] [phone]
--- OUTSIDE RECORDS SUMMARY | 2022-03-19 08:19 | XMS_ITS | Encounter Summary ---
:2000 Author Organization [facility] Address [address] [place] [address] Care Team Providers Name Role Phone Chaparro Payan P.A.-C. Primary Care Provider [phone] Encounter Details Date Type Department Care Team Description 08/30/2020 Orders Only [facility] PCP [facility] Sa daina Buckley M.D. [address] [place], [place] [phone] (Wo rk) Social History [...] How often do you attend yarsanism or hinduism 1 to 4 times per [...] documented as of this encounter Care Teams Park Superintendent Relationship Specialty Start Date End Date Chaparro Payan P.A.-C. PCP - General 02/05/[address] [place] [phone] documented as of this encounter
--- OUTSIDE RECORDS SUMMARY | 2022-03-19 08:19 | XMS_ITS | Encounter Summary ---
:2000 Author Organization [facility] Address [address] [place] [address] Care Team Providers Name Role Phone Chaparro Payan P.A.-C. Primary Care Provider [phone] Reason for Visit Reason Onset Date Comments Outpatient COVID-19 Testing 07/12/2020 Encounter Details Date Type Department Care Team Description 07/12/2020 External Outreach Department of Family Wood Guzman Contact With And Medicine, [facility] Abdulkadir Winter D.O. (Suspected) Exposure Building, in [address] To COVID-19 (Primary [place], [place] Dx) 134 [facility] [address] [place], [place] [phone] (Work) [phone] Social History Tobacco Use Types Packs/Day Years [...] How often do you attend restorationist or faith 1 to 4 times per [...] PM CST Encounter created for COVID-19 screening. FITS CONSULTANT documented in this encounter Plan of Treatment Not on filedocumented as of this encounter Procedures Procedure Name Priority Date/Time Associated Diagnosis Comme nts SARS CORONAVIRUS-2 Routine 07/12/2020 4:07 PM Contact With And Results for this RNA, V BENEFITS CONSULTANT (Suspected) Exposure procedu re are in To COVID-19 the results section. documented in this encounter Results SARS Coronavirus-2 RNA, V Asymptomatic (07/12/2020 4:07 PM BENEFITS CONSULTANT) [facility] Method Time Signature SARS-CoV-2 Swab, 07/13/2020 MKTO Specimen Nasopharynx 1:56 AM BENEFITS CONSULTANT Source SARS CoV-2 Undetected Undetected 07/13/2020 MKTO RNA, TMA 1:56 AM BENEFITS CONSULTANT Comment: SARS-CoV-2 RNA absent. This result does not rule out COVID-19 in the patient, as the sensitivity of the test depends o n the timing of the specimen collection and the quality of the specim en. Result should be correlated with patient's history and clinical presentat ion. ----ADDITIONAL INFORMATION---- This molecular amplification test was pe rformed using the Aptima SARS-CoV-2 assay ([employer] on the Oja.las tem under emergency use authorization (EUA) by the U.S. Food and Drug Administ ration. Fact sheets for this EUA assay can be fo und at the following links: For Healthcare Providers: https://www.fd a.gov/media/936889/download For Patients: https://www.fda.gov/media/ 704943/download Specimen Anatomical Collection Method Collection Time Receive d Time (Source) Location / / Volume Laterality Varies 07/12/2020 4:07 PM 02/12/202 1 8:44 (Nasopharynx) BENEFITS CONSULTANT PM BENEFITS CONSULTANT Wood Guzman D.O. LAB MICROBIOLOGY - GENERAL O RDERABLES Performing Organization Address City/State/ZIP Code Phon e Number [facility]- [address] [place] [address] [facility] [place] [address] System in [place] [address] [place] [address] documented in this encounter Visit Diagnoses Diagnosis Contact With And (Suspected) Exposure To COVID-19 - Primary documented in this encounter Additional Health Concerns Infection Onset Date Last Indicated Resolved Time COVID19 Pending 07/12/2020 07/12/2020 07/13/2020 1:56 AM BENEFITS CONSULTANT Assessment Noted Time PHQ-9 Depression Total Score: 8 10/13/2017 12:58 PM CD T documented as of this encounter Care Teams Lactation Consultant Relationship Specialty Start Date End Date Chaparro Payan P.A.-C. PCP - General 02/05/[address] [place] [phone] documented as of this encounter
--- OUTSIDE RECORDS SUMMARY | 2022-03-19 08:19 | XMS_ITS | Encounter Summary ---
:2000 Author Organization [facility] Address [address] [place] [address] Care Team Providers Name Role Phone Chaparro Payan P.A.-C. Primary Care Provider [phone] Reason for Visit Reason Comments Missed phone Encounter Details Date Type Department Care Team Description 09/10/2021 Clinical Communication Department of Americo Bear Mis sed phone Obstetrics and M.D. Gynecology in [address] [place] [address] [place] [phone] [place], [place] [phone] (Work) [phone] Social History Tobacco Use Types Packs/Day Years [...] How often do you attend adventist or scientology 1 to 4 times per [...] / REASON FOR CALL Communication (Pre-visit intake) Child Welfare Assistant: no INFORMATION DISCUSSED Patient contacted for [...] documented as of this encounter Care Teams Drapery Operator Relationship Specialty Start Date End Date Chaparro Payan P.A.-C. PCP - General 02/05/[address] [place] [phone] documented as of this encounter
--- OUTSIDE RECORDS SUMMARY | 2022-03-19 08:19 | XMS_ITS | Encounter Summary ---
:2000 Author Organization [facility] Address [address] [place] [address] Care Team Providers Name Role Phone Chaparro Payan P.A.-C. Primary Care Provider [phone] Reason for Referral Outpatient (Routine) - Closed Specialty Diagnoses / Procedures Referred By Contact Refer red To Contact Diagnoses Bicuspid Aortic Valve (HCC) Americo Bear M.D. [facility] Procedures Echo Transthoracic (TTE) - Adult Congenital [address] [place] [phone] Referral ID Status Reason Start Date Expiration Date Visits Requ ested Visits Authorized [id number] Closed 09/11/2021 09/11/2022 1 1 Reason for Visit Appointment Request (Routine) - Authorized Specialty Diagnoses / Procedures Referred By Contact Refer red To Contact Maternal and Diagnoses Bicuspid Aortic Valve (HCC) Abnormal Ultrasound [facility] Sonya Gilliland.NGurdeep [address] [place] [address] Referral ID Status Reason Start Date Expiration Date Visits V isits Requested Authorized [id number] Authorized 08/25/2021 08/25/2022 3 3 Encounter Details Date Type Department Care Team Description 09/16/2021 Routine Department of Americo Bear Bicuspid Aortic Valve Obstetrics and Silvio (HCC) (Primary Dx) Gynecology in [address] [place], [place] [address] [place] [phone] [place], [place] [phone] (Work) [phone] Social History Tobacco Use Types Packs/Day Years [...] How often do you attend religion or denominational 1 to 4 times per [...] consistent with 9 week scan EGA 14 1 weeks who is referred for the indication [...] COLOR AND DOPPLER (09/16/2021 1:54 PM CDT) [facility] Method Time Signature Ejection Fraction 64 [...] original. For the complete report, see the [employer] Documents. Final Impressions 1. Bicuspid aortic valve [...] documented as of this encounter Care Teams Uniform Patrol Police Officer Relationship Specialty Start Date End Date Chaparro Payan P.A.-C. PCP - General 02/05/[address] [place] [phone] documented as of this encounter
--- OUTSIDE RECORDS SUMMARY | 2022-03-19 08:19 | XMS_ITS | Encounter Summary ---
:2000 Author Organization [facility] Address [address] [place] [address] Care Team Providers Name Role Phone Chaparro Payan P.A.-C. Primary Care Provider [phone] Encounter Details Date Type Department Care Team Description 08/25/2021 Orders Only Department of Mónica Noe High Risk Obstetrics and J, R.N. (Primary Dx) Gynecology in [address] [place] [address] [place] [phone] [place], [place] [phone] (Work) [phone] Social History Tobacco Use Types Packs/Day Years [...] How often do you attend congregational or jew 1 to 4 times per [...] FOLLOW-UP AND OR GROWTH ABEL Exam Site: [facility][id number] Plurality: 1 OBHx: [G:(1)] [...] Read by Wing Willett on 8:30:37 AM. Radiotelephone Technical Operator: ??Wing Willett Thank You For This Referral Procedure Note Yvonne Sanchez M.D. - 09/16/2021Forma tting of this note might be different from the original. CITLALY HOLLAND OB Exam, 09/16/2021 EXAM INFORMATION Patient Name: CITLALY HOLLAND : 2000 Age: 20 yrs Sex: Female Ref Phys: AMERICO BEAR Exam Date: 09/16/2021 Procedure: US OB FOLLOW-UP AND OR GROWTH ABEL Exam Site: [facility][id number] Plurality: 1 OBHx: [G:(1)] [...] Read by Wing Willett on 8:30:37 AM. Radiotelephone Technical Operator: Wing Willett Thank You For This Referral Americo Bear M.D. IMG OB US PROCEDURES documented in this encounter Visit Diagnoses Diagnosis High Risk (HCC) - Primary High Risk (HCC) documented in this encounter Additional Health Concerns Assessment Noted Time PHQ-9 Depression Total Score: 8 10/13/2017 12:58 PM CD T documented as of this encounter Care Teams Vehicle Maintenance Technician Relationship Specialty Start Date End Date Chaparro Payan P.A.-C. PCP - General 02/05/[address] [place] [phone] documented as of this encounter
--- OUTSIDE RECORDS SUMMARY | 2022-03-19 08:19 | XMS_ITS | Clinical Summary ---
:2000 Author Organization [facility] Address [address] [place] [address] Care Team Providers Name Role Phone Chaparro Payan P.A.-C. Primary Care Provider [phone] Source Comments Patient records contain information from all sites at [facility]. For routine questions regarding patient records, call [phone] during business hours, M-F 8:00 AM - 5:00 PM Central Time. Record requests for emergency care only can be directed to [phone] at any time.[facility] Allergies Active Allergy Reactions Severity Noted Date Comments Penicillins Rash 12/19/2007 Medications Medication Sig Dispensed Refills Start Date End Date Status ibuprofen Take 800 mg by 0 Activ e (ADVIL,MOTRIN) 200 mg mouth. tablet albuterol 90 Inhale 2 puffs as 0 09/03/2021 Active mcg/actuation inhaler needed. Take 1 tablet by 0 Act navarro asimihc-Zl-ylwr-FA mouth daily. (VINATE ONE) 60 mg iron-1 mg per tablet Active Problems Patient Care Coordination Note Formatting of this note might be differe nt from the original. Spouse: no Children: no Work: no AYAZ on file for mom Amy ([phone]) Problem Noted Date Overweight Body Mass Index [...] How often do you attend nondenominational or gnosticism 1 to 4 times per [...] CDT Respiratory Rate 16 08/02/2020 2:23 PM CONTINUOUS WAVE OPERATOR Oxygen Saturation 100% 09/16/2021 8:36 AM [...] 02/04/1999 Pneumococcal vaccine (0-64 Aged Out 09/29/2000, 1 No longer eligible years) based on patient 's age to complete this topic HPV Vaccines Completed 08/16/2008, 03/27/2008, 12/19/2007 Insurance Payer Benefit Plan / Subscriber ID Effective Phone Address T ype Group Dates PREFERREDONE PREFERREDONE [id number] 2019-Pre [phone] [address]OX PPO ADMINISTRATIVE ADMINISTRATIVE sent [phone] [place] [phone] Care Teams Industrial Spraypainter Relationship Specialty Start Date End Date Chaparro Payan P.A.-C. PCP - General 02/05/[address] [place] [phone]
--- OUTSIDE RECORDS SUMMARY | 2022-03-19 08:20 | XMS_ITS | Encounter Summary ---
:2000 Author Organization [facility] Address [address] [place] [address] Care Team Providers Name Role Phone Unavailable Primary Care Provider Unavailable Encounter Details Date Type Department Care Team Description 01/26/2013 Hospital Encounter HX [facility] FAMILYPRA Elmo Kitchen, BEL, C.N.P., D. N.P. [address] [place], [place] [address] (Wo rk) Social History [...] How often do you attend yazidism or buddhist 1 to 4 times per [...] % 01/26/2013 10:42 AM CDT Growth Chart: [facility] (Girls, 2-20 Years) documented in this encounter H&P Notes Lisa Kitchen APRN, C.N.P. - 01/26/2013 10:25 AM CDT [id number] CHIEF COMPLAINT/REASON FOR VISIT Well-child exam and sports physical. HISTORY OF PRESENT ILLNESS The patient is a 12-year-old female who presents for her 12-year-old well-child exam. Patient was last seen by me for her 10-year-old well-child exam. Patient lives at home with her mom, dad, one brother, one sister and one cousin. She does speak Mosotho in their home. Patient does wear glasses [...] ALLERGIES See EMR. SYSTEMS REVIEW Please see [facility] 11 to 14-year-old clinic visit sheet scanned into EMR for complete details. PAST MEDICAL/SURGICAL HISTORY Unchanged see EMR. SOCIAL HISTORY Patient lives at home with her mom, dad, brother, one sister and cousin. Denies tobacco, alcohol anddrug use. Patient is not sexually active. FAMILY HISTORY Unchanged see EMR. VITAL SIGNS See EMR. PHYSICAL EXAMINATION Please see scanned-in [facility] 11 to 14-year-old clinic visit sheet and [id number] sports qualifying physical examination clearance form as [...] CRANDALL CNP On: 02/13/2013 08:43 AM Source: [facility] MHSDOLBEYNONRADSYS Document Id: [id number] documented in this encounter Procedure Notes Conversion, [...] 11:23 CDT KIRSTEN HUYNH 01/26/2013 11:23 CDT KIRSTEN HUYNH - 01/26/2013 11:23 CDT Right Ear Hearing POC Test Grid Right Ear 20 db Right Ear 30 db Right Ear 40 db 500 Hz : No response KIRSTEN HUYNH 01/26/2013 11:40 CDT Response Response 1000 Hz : Response Response Response 2000 Hz : Response Response Response 4000 Hz : Response Response Response KIRSTEN HUYNH - 01/26/2013 11:23 CDT KIRSTEN HUYNH - 01/26/2013 11:23 CDT KIRSTEN HUYNH 01/26/2013 11:23 CDT Source: [employer] Document Id: [id number] CDT!5 Conversion, Historical Provider Ser - 01/26/2013 11:23 AM CDT Vision Testing Document Has Been Updated Vision Testing Entered On: 01/26/2013 11:34 CDT Performed On: 01/26/2013 11:23 CDT by KIRSTEN HUYNH Becky Vision Testing Eyes, Both w/o Correction : 20/30 KIRSTEN HUYNH - 01/26/2013 11:39 CDT Corrective Lenses : Glasses KIRSTEN HUYNH - 01/26/2013 11:23 CDT Eye, Right w/o Correction : 20/40 Eye, Left w/o Correction : 20/30 KIRSTEN HUYNH - 01/26/2013 11:39 CDT Source: [employer] Document Id: [id number] CDT!5 documented in this encounter Miscellaneous Notes Miscellaneous - Lisa Kitchen APRN, CBettieN.PBettie - 01/26/2013 5:17 PM CDT Ambulatory Patient Summary [address] [address] Visit Information Name: CITLALY HOLLAND [facility] Number: [id number] Current Date: 01/26/2013 17:17:31 Physicians [...] No Appointments found Your Goals/Additional instructions: Source: [employer] Document Id: [id number] Miscellaneous - Lisa Kitchen APRN, C.N.P. - 01/26/2013 5:17 PM CDT Ambulatory Depart Summary [address] [address] Visit Information Name: CITLALY HOLLAND [facility] Number: [id number] Visit Date: 01/26/2013 17:17:30 Attending [...] your provider for clarification. Additional Information: Source: [facility] POWERCHART Document Id: [id number] Miscellaneous - Conversion, Historical Provider Ser - 01/26/2013 10:42 AM CDT Pediatric Multi Skilled Operator Intake/History Pediatric Multi Skilled Operator Intake/History Entered On: 01/26/2013 10:43 CDT [...] Information Given By : Patient Languages : Beninese KIRSTEN HUYNH - 01/26/2013 10:42 CDT Subjective Pain Symptoms : No KIRSTEN HUYNH 01/26/2013 10:42 CDT Dependent Habits Tobacco Use/Currently [...] None KIRSTEN HUYNH 01/26/2013 10:42 CDT Source: [facility] [employer] Document Id: [id number] CDT!40 documented in this encounter Plan of Treatment Not on filedocumented as of this encounter Visit Diagnoses Not on filedocumented in this encounter
--- OUTSIDE RECORDS SUMMARY | 2022-03-19 08:20 | XMS_ITS | Encounter Summary ---
:2000 Author Organization [facility] Address [address] [place] [address] Care Team Providers Name Role Phone Unavailable Primary Care Provider Unavailable Encounter Details Date Type Department Care Team Description 10/09/2016 Hospital Encounter HX FBCV FAMILYPRA Amrita Payan P.A.-C. [address] [place] [address] (Wo rk) Social History Tobacco Use [...] How often do you attend yazidi or congregational 1 to 4 times per [...] Payan P.A.-C. - 10/09/2016 3:04 PM CDT [id number] CHIEF COMPLAINT/REASON FOR VISIT Sore throat. HISTORY [...] PAYAN PA-C On: 10/12/2016 09:00 AM Source: [facility] MHSDOLBEYNONRADSYS Document Id: [id number] documented in this encounter Miscellaneous Notes Miscellaneous - Mikael Payan P.A.-C. - 10/09/2016 4:34 PM CDT Ambulatory Discharge Medication List [address] [id number] Visit Information Name: CITLALY HOLLAND [facility] Number: [id number] Current Date: 10/09/2016 16:34:51 [...] PA-C Signed On:09-OCT-2016 16:34:49 Additional Information: Source: [facility] POWERCHART Document Id: [id number] Miscellaneous - Mikael Payan P.A.-C. - 10/09/2016 4:34 PM CDT Ambulatory Patient Summary [address] [id number] Visit Information Name: CITLALY HOLLAND [facility] Number: [id number] Current Date: 10/09/2016 16:34:51 [...] online form. Youll be asked for your [facility] number which you can find at the top of this document. Your Goals/Additional instructions: Source: [facility] POWERCHART Document Id: [id number] Miscellaneous - Roxana Hernandez L.P.N. - 10/09/2016 3:18 PM CDT Pediatric Customer Care Specialist Intake/History Pediatric Customer Care Specialist Intake/History Entered On: 10/09/2016 15:20 CDT Performed [...] Information Given By : Patient Languages : Iraqi Is Patient Female and 13-50 no hysterectomy [...] HERNANDEZ LPN - 10/09/2016 15:18 CDT Source: [employer] [facility] POWERCHART Document Id: [id number] CDT!45 documented in this encounter Plan of [...] Strep A Screen (10/09/2016 3:30 PM CDT) [facility] Method Time Signature HXRapid Strep POWERCHART Confirmation HXPre Negative for POWERCHART Group A Strep by culture. HXFinal Negative for POWERCHART Group A Strep by culture. Specimen Anatomical Collection Method Collection Time Receive d Time (Source) Location / / Volume Laterality Throat 10/09/2016 3:30 PM 7 3:30 CDT PM CDT Mikael MooreC. LAB MICROBIOLOGY - GENERAL O RDERABLES Performing Organization Address City/State/[facility] Code Phon e Number POWERCHART Rapid Strep A Screen (10/09/2016 3:30 PM CDT) [facility] [employer] Method Time Signature HXStrep A POWERCHART Screen Rapid HXFinal Negative for POWERCHART Strep Group A by rapid screen. HXFinal Culture POWERCHART confirmation to follow. Specimen (Source) Anatomical Collection Method Collection Time Re ceived Time Location / / Volume Laterality Throat 10/09/2016 3:30 PM CDT Mikael DeanABettie-C. LAB MICROBIOLOGY - GENERAL O RDERABLES Performing Organization Address City/State/ZIP Code Phon e Number POWERCHART documented in this encounter Visit Diagnoses Not on filedocumented in this encounter
--- OUTSIDE RECORDS SUMMARY | 2022-03-19 08:20 | XMS_ITS | Encounter Summary ---
:2000 Author Organization [facility] Address [address] [place] [address] Care Team Providers Name Role Phone Unavailable Primary Care Provider Unavailable Encounter Details Date Type Department Care Team Description 10/09/2016 Hospital Encounter HX NO MAPPING Casper Payan P.A.-C. [address] [place] [address] (Wo rk) Social History Tobacco Use [...] How often do you attend pentecostalism or caodaism 1 to 4 times per [...] Based CODING DATE: 10/20/2016 FINAL [facility] STATUS: * Discharged to Home or Self [...] HOLLY Date Saved: 10/20/2016 01:24 pm Source: [email or web address] Document Id: [id number] documented in this encounter Plan of Treatment Not on filedocumented as of this encounter Visit Diagnoses Not on filedocumented in this encounter
--- OUTSIDE RECORDS SUMMARY | 2022-03-19 08:20 | XMS_ITS | Encounter Summary ---
:2000 Author Organization [facility] Address [address] [place] [address] Care Team Providers Name Role Phone Chevy, Miranda Guadalupe APRN C.N.P., M.S.N. 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 Chaparro ANGUIANOG DIAGNOSTIC IMAGING PROCE DURES documented in this encounter Visit Diagnoses Diagnosis Pain Back documented in this encounter Additional Health Concerns Assessment Noted Time PHQ-9 Depression Total Score: 8 10/13/2017 12:58 PM CD T documented as of this encounter Care Teams Shoes Hand Sewer Relationship Specialty Start Date End Date Reece, Miranda Guadalupe APRN, C.N.P., PCP - General 02/04/18 M.S.N. [address] [place] [address] documented as of this encounter
--- OUTSIDE RECORDS SUMMARY | 2022-03-19 08:20 | XMS_ITS | Encounter Summary ---
:2000 Author Organization [facility] Address [address] [place] [address] Care Team Providers Name Role Phone Reece, Miranda Guadalupe APRN C.N.PBettie, M.S.N. Primary Care Pr ovider Reason for Referral Outpatient (Routine) - Closed Specialty Diagnoses / Referred By Contact Referred To Contact Procedures Cardiovascular Diseases / Diagnoses Bicuspid Aortic Valve (HCC) Phyllis Ramírez, [facility] Cardiovascular Disease Silvio [address] [place] [address] Referral ID Status Reason Start Date Expiration Date Visits Requ ested Visits Authorized [id number] Closed 11/03/2017 11/03/2018 1 1 Encounter Details Date Type Department Care Team Description 11/03/2017 Orders Only Department of [facility] Phyllis Ramírez, Bic uspid Aortic Valve Medicine, Oren Anguiano (HCC) (Primary Dx) Clinic, in [address] 300 [facility] [id number] [place] [address] [phone] (Work) [phone] Social History Tobacco Use Types Packs/Day Years [...] How often do you attend druze or latter-day 1 to 4 times per [...] documented as of this encounter Care Teams Corrugated Box Machine Operator Relationship Specialty Start Date End Date Miranda Reece APRN, C.N.P., PCP - General 02/04/18 M.S.N. [address] [place] [address] documented as of this encounter
--- OUTSIDE RECORDS SUMMARY | 2022-03-19 08:20 | XMS_ITS | Encounter Summary ---
:2000 Author Organization [facility] Address [address] [place] [address] Care Team Providers Name Role Phone Chaparro Payan P.A.-C. Primary Care Provider [phone] Reason for Visit Reason Onset Date Comments Outpatient COVID-19 Testing 03/27/2020 Encounter Details Date Type Department Care Team Description 03/27/2020 External Outreach Department of Wood Guzamn Infect ion Upper Internal Medicine in J, D.O. Respiratory (Primary [place], [place] [address] Dx) [address] [place] [phone] Social History Tobacco Use Types Packs/Day Years [...] How often do you attend episcopalian or faith 1 to 4 times per [...] RNA, V Symptomatic (03/28/2020 3:08 PM CDT) [facility] Method Time Signature SARS-CoV-2 Swab, 03/29/2020 [...] is performed using the Aptima SARS-CoV-2 assay ([employer] which has received Emergency Use Authori zation (EUA) by the U.S. Food and Drug Administration. Fact sheets for this Emergency Use Autho rization (EUA) assay can be found at the following links: For Healthcare Providers: https://www.fd a.gov/media/766976/download For Patients: https://www.fda.gov/media/ 698039/download Specimen Anatomical Collection Method Collection Time Receive d Time (Source) Location / / Volume Laterality Varies 03/28/2020 3:08 PM 0 1:47 (Nasopharynx) CDT AM CDT Wood Guzman D.O. LAB MICROBIOLOGY - GENERAL O JIMMY Performing Organization Address City/State/ZIP Code Phon e Number [facility] [place] [address] [place] [address] System in [place] [address] [place] [address] documented in this encounter Visit Diagnoses Diagnosis Infection Upper Respiratory - Primary documented in this encounter Additional Health Concerns Infection Onset Date Last Indicated Resolved Time COVID19 Pending 03/27/2020 03/28/2020 03/29/2020 10:23 PM CDT Assessment Noted Time PHQ-9 Depression Total Score: 8 10/13/2017 12:58 PM CD T documented as of this encounter Care Teams Women'S Basketball Coach Relationship Specialty Start Date End Date Chaparro Payan P.A.-C. PCP - General 02/05/[address] [place] [phone] documented as of this encounter
--- OUTSIDE RECORDS SUMMARY | 2022-03-19 08:20 | XMS_ITS | Encounter Summary ---
:2000 Author Organization [facility] Address [address] [place] [address] Care Team Providers Name Role Phone Chaparro Payan P.A.-C. Primary Care Provider [phone] Encounter Details Date Type Department Care Team Description 07/12/2020 Admin Visit Department of Family Medicine, [address] [address] [facility] [phone] Social History Tobacco Use Types Packs/Day Years [...] How often do you attend faith or hoahaoism 1 to 4 times per [...] COVID19 Pending 07/12/2020 07/12/2020 07/13/2020 1:56 AM IMPLEMENTATION COORDINATOR Assessment Noted Time PHQ-9 Depression Total Score: 8 10/13/2017 12:58 PM CD T documented as of this encounter Care Teams Outside Plant Field Engineer Relationship Specialty Start Date End Date Chaparro Payan P.A.-C. PCP - General 02/05/[address] [place] [phone] documented as of this encounter
--- OUTSIDE RECORDS SUMMARY | 2022-03-19 08:20 | XMS_ITS | Encounter Summary ---
:2000 Author Organization [facility] Address [address] [place] [address] Care Team Providers Name Role Phone Chevy, Miranda Guadalupe APRN C.N.P., M.S.N. Primary Care Pr ovider Reason for Visit Reason Comments New Patient Outpatient (Routine) - Closed Specialty Diagnoses / Referred By Contact Referred To Contact Procedures Cardiovascular Diseases / Diagnoses Bicuspid Aortic Valve (HCC) Phyllis Ramírze, [facility] Region Cardiovascular Disease M.DBettie [address] [place] [address] Referral ID Status Reason Start Date Expiration Date Visits Requ ested Visits Authorized [id number] Closed 11/03/2017 11/03/2018 1 1 Encounter Details Date Type Department Care Team Description 11/17/2017 Comprehensive Visit Department of Rene Minor Aortic Cardiovascular TSilvio, M.P.H. Valve (HCC) Diseases in [address] [place] [address] 300 [facility] [address] [place], [place] [phone] [address] (Work) [phone] Social History Tobacco Use Types Packs/Day Years [...] How often do you attend presybeterian or synagogue 1 to 4 times per [...] documented as of this encounter Care Teams Account Retention Representative Relationship Specialty Start Date End Date Miranda Reece APRN, C.N.P., PCP - General 02/04/18 M.S.N. [address] [place] [address] documented as of this encounter
--- OUTSIDE RECORDS SUMMARY | 2022-03-19 08:20 | XMS_ITS | Encounter Summary ---
:2000 Author Organization [facility] Address [address] [place] [address] Care Team Providers Name Role Phone Chaparro Payan P.A.-C. Primary Care Provider [phone] Encounter Details Date Type Department Care Team Description 03/28/2020 Admin Visit Department of Family Medicine, [address] [address] [facility] [phone] Social History Tobacco Use Types Packs/Day Years [...] How often do you attend evangelical or mormonism 1 to 4 times per [...] Last Indicated Resolved Time COVID19 Pending 03/27/2020 03/28/202003/2903/29/2020 10:23 PM CDT Assessment Noted Time PHQ-9 Depression Total Score: 8 10/13/2017 12:58 PM CD T documented as of this encounter Care Teams Kitman Relationship Specialty Start Date End Date Chaparro Payan P.A.-C. PCP - General 02/05/[address] [place] [phone] documented as of this encounter
--- OUTSIDE RECORDS SUMMARY | 2022-03-19 08:20 | XMS_ITS | Encounter Summary ---
:2000 Author Organization [facility] Address [address] [place] [address] Care Team Providers Name Role Phone Unavailable Primary Care Provider Unavailable Encounter Details Date Type Department Care Team Description 04/30/2015 Hospital Encounter HX [facility] FBKF FAMILYPRA Miranda Reece APRN, C.N.P., M.S.N. [address] [place] [address] (Wo rk) Social History Tobacco Use Types [...] How often do you attend tenriism or denominational 1 to 4 times per [...] (131 lb 2.8 oz) 04/30/2015 3:28 PM SAGGER FILLER Height 158 cm (5' 2.21) 04/30/2015 3:28 PM SAGGER FILLER Body Mass Index 23.83 04/30/2015 3:28 PM SAGGER FILLER Body Mass Index Percentile 79.89 % 04/30/2015 3:28 PM CS T Growth Chart: [facility] (Girls, 2-20 Years) documented in this encounter H&P Notes Chevy, Miranda Guadalupe, BEL, TIFFANIE - 04/30/2015 3:19 PM CST [id number] CHIEF COMPLAINT/REASON FOR VISIT Annual physical. HISTORY [...] Jansen -C./francesca Electronically Signed By: MIRANDA REECE SUPERINTENDENT SANITATION On: 05/21/2015 02:28 PM Source: [facility] MHSDOLBEYNONRADSYS Document Id: [id number] ER FILLER documented in this encounter Miscellaneous Notes Miscellaneous - Triston Mccormick, L.P.N. - 04/30/2015 3:32 PM CST PHQ-9 - Teens PHQ-9 - Teens Entered On: 04/30/2015 15:33 SAGGER FILLER Performed On: 04/30/2015 15:32 SAGGER FILLER by TRISTON MCCORMICK LPN PHQ-9 - Teens [...] No TRISTON MCCORMICK LPN - 04/30/2015 15:32 SAGGER FILLER Source: [facility] Document Id: [id number] SAGGER FILLER!16 ER FILLER Miscellaneous - Triston Mccormick L.P.N. - 04/30/2015 3:28 PM CST Pediatric Oil Well Services Supervisor Intake/History Pediatric Oil Well Services Supervisor Intake/History Entered On: 04/30/2015 15:31 SAGGER FILLER Performed On: 04/30/2015 15:28 SAGGER FILLER by TRISTON MCCORMICK LPN Intake Chief Complaint [...] kg/m2 TRISTON MCCORMICK LPN - 04/30/2015 15:28 SAGGER FILLER General Info Accompanied By : Mother, Sibling Information Given By : Patient Languages : Syriac, Mohawk Is Patient Female and 13-50 no hysterectomy : Yes Status : Patient denies Are you ? : No TRISTON MCCORMICK LPN - 04/30/2015 15:28 SAGGER FILLER Subjective Pain Symptoms : No TRISTON MCCORMICK LPN - 04/30/2015 15:28 SAGGER FILLER Dependent Habits Exposure to Tobacco Smoke : Care provider denies smoking in home Smoking Status : Never smoker Tobacco 2A : No Alcohol Use : No TRISTON MCCORMICK LPN - 04/30/2015 15:28 SAGGER FILLER Caffeine Use Grid Caffeine Use : Current Type : Chocolate, Soft drinks Frequency : Weekly Amount : 2 times per month Last Use : 04/30/15 TRISTON MCCORMICK LPN - 04/30/2015 15:28 SAGGER FILLER Recreational Drug Use Grid Drug Use : None TRISTON MCCORMICK LPN - 04/30/2015 15:28 SAGGER FILLER Source: [facility] [employer] Document Id: [id number] SAGGER FILLER!42 ER FILLER documented in this encounter Plan of Treatment Not on filedocumented as of this encounter Procedures Procedure Name Priority Date/Time Associated Comments Diagnosis CHLAMYDIA/GONORRHOEAE Routine 04/30/2015 3:30 PM Results for this AMPLIFIED RNA SAGGER FILLER procedure are in the results section. CHLAMYDIA TRACHOMATIS Routine 04/30/2015 3:30 PM Results for this AMPLIFIED RNA SAGGER FILLER procedure are in the results section. documented in this encounter Results Chlamydia / Gonorrhoeae Amplified RNA (04/30/2015 3:30 PM SAGGER FILLER) Component Value Ref Test Analysis Performed At [facility] Range Method Time Signature HX GC by Nucleic POWERCHART Acid Amplification HXFinal Negative for POWERCHART Neisseria gonorrhea by RNA amplification . HXFinal Reference: POWERCHART Negative HXFinal If you POWERCHART submitted a female urine sample, please note it is a Laboratory Developed Test. Specimen (Source) Anatomical Collection Method Collection Time Re ceived Time Location / / Volume Laterality Urine 04/30/2015 3:30 PM SAGGER FILLER Miranda Reece APRN, C.N.P., M.S.N. LAB MICROB IOLOGY - GENERAL ORDERABLES Performing Organization Address City/State/ZIP Code Phon e Number POWERCHART Chlamydia Trachomatis Amplified RNA (04/30/2015 3:30 PM SAGGER FILLER) Component Value Ref Test Analysis Performed At [facility] Range Method Time Signature HXChlamydia by POWERCHART Nucleic Acid Amplification HXFinal Negative for POWERCHART Chlamydia trachomatis by RNA amplification. HXFinal Reference: POWERCHART Negative HXFinal If you POWERCHART submitted a female urine sample, please note it is a Laboratory Developed Test. Specimen (Source) Anatomical Collection Method Collection Time Re ceived Time Location / / Volume Laterality Urine 04/30/2015 3:30 PM SAGGER FILLER Miranda Reece APRN, C.N.P., M.S.N. LAB MICROB IOLOGY - GENERAL ORDERABLES Performing Organization Address City/State/ZIP Code Phon e Number POWERCHART documented in this encounter Visit Diagnoses Not on filedocumented in this encounter
--- OUTSIDE RECORDS SUMMARY | 2022-03-19 08:20 | XMS_ITS | Encounter Summary ---
:2000 Author Organization [facility] Address [address] [place] [address] Care Team Providers Name Role Phone Chevy, Miranda Guadalupe APRN C.N.PBettie, M.S.N. Primary Care Pr ovider Reason for Referral Outpatient (Routine) - Closed Specialty Diagnoses / Procedures Referred By Contact Refer red To Contact Diagnoses Bicuspid Aortic Valve (HCC) Fatigue par review Phyllis Ramírez M.D. [facility] [place] [facility] Procedures Echo Transthoracic (TTE) GA ECHO TTE 2D W DPLR COMPLETE CVD ECHO [address] [place] [address] Referral ID Status Reason Start Date Expiration Date Visits Requ ested Visits Authorized [id number] Closed 09/03/2017 03/02/2018 1 1 Reason for Visit Outpatient (Routine) - Closed Specialty Diagnoses / Procedures Referred By Contact Refer red To Contact Diagnoses Bicuspid Aortic Valve (HCC) Fatigue par review Phyllis Ramírez M.D. [facility] [place] [facility] Procedures Echo Transthoracic (TTE) GA ECHO TTE 2D W DPLR COMPLETE CVD ECHO [address] [place] [address] Referral ID Status Reason Start Date Expiration Date Visits Requ ested Visits Authorized [id number] Closed 09/03/2017 03/02/2018 1 1 Encounter Details Date Type Department Care Team Description 11/02/2017 Hospital Encounter Department of Phyllis Ramírez Aortic Valve (HCC); Cardiovascular Diseases Silvio Winter Fatigue in [place] Frausto ta [address] [place], [place] S[place]ETIE FRAUSTO [address] [phone] Social History Tobacco Use Types Packs/Day Years [...] How often do you attend adventism or anglican 1 to 4 times per [...] ECHO DOPPLER COLOR (11/02/2017 8:41 AM CDT) [facility] Method Time Signature Ejection Fraction 59 MC [...] documented as of this encounter Care Teams Automation Control Integrator Relationship Specialty Start Date End Date Chevy, Miranda Guadalupe APRN, C.N.P., PCP - General 02/04/18 M.S.N. [address] [place] [phone] documented as of this encounter
--- OUTSIDE RECORDS SUMMARY | 2022-03-19 08:20 | XMS_ITS | Encounter Summary ---
:[address] [facility] Address [address] [place] [address] Care Team Providers Name Role Phone Chaparro Payan P.A.-C. Primary Care Provider [phone] Reason for Visit Reason Comments COVID Inquiry Encounter Details Date Type Department Care Team Description 06/23/2020 Clinical Communication [facility] [place] [place] V[facility] Inquiry Cardiovascular Surgery Provider in [place], [place] [address] [place] [address] Social History Tobacco Use Types [...] How often do you attend hindu or mandaen 1 to 4 times per [...] LABORATORY CONFIRMED case ofCOVID-19?: Yes exposure noted. [place] patient, instruct to quarantine, testing indicated (End Screening) Testing Recommendation Endpoint Is testing recommended? : Recommended to test Plan: Endpoint recommendation: Testing indicated, advised to be swabbed for COVID-19 Only , sent to [facility] located at [address] [place] [address]. The entrance is on the north side of the building. You must call [phone] for an appointment time.Testing hours are Daily [...] sending patient for testing in T or [facility], route encounter to the correct testing pool. UTIVE RECEPTIONIST documented in this encounter Plan of Treatment Not on filedocumented as of this encounter Visit Diagnoses Not on filedocumented in this encounter Additional Health Concerns Infection Onset Date Last Indicated Resolved Time COVID19 Pending 06/23/2020 06/23/2020 06/24/2020 2:18 PM EXECUTIVE RECEPTIONIST Assessment Noted Time PHQ-9 Depression Total Score: 8 10/13/2017 12:58 PM CD T documented as of this encounter Care Teams Steel Hanger Relationship Specialty Start Date End Date Chaparro Payan P.A.-C. PCP - General 02/05/[address] [place] [phone] documented as of this encounter
--- OUTSIDE RECORDS SUMMARY | 2022-03-19 08:20 | XMS_ITS | Encounter Summary ---
:2000 Author Organization [facility] Address [address] [place] [address] Care Team Providers Name Role Phone Chaparro Payan P.A.-C. Primary Care Provider [phone] Reason for Visit Reason Onset Date Comments Outpatient COVID-19 Testing 02/28/2020 Encounter Details Date Type Department Care Team Description 02/28/2020 External Outreach Urgent Care in [place], [place] [facility] ([place] [address] [facility] [address]) DR Génesis YATESCOX WALNUT [place], [place] [phone] Social History Tobacco Use Types Packs/Day Years [...] often do you attend roman catholic or scientology 1 to 4 times per [...] RNA, V Symptomatic (02/28/2020 12:06 PM CDT) [facility] Method Time Signature SARS-CoV-2 Swab, 02/29/2020 [...] is performed using the Aptima SARS-CoV-2 assay ([employer] which has received Emergency Use Authori zation (EUA) by the U.S. Food and Drug Administration. Fact sheets for this Emergency Use Autho rization (EUA) assay can be found at the following links: For Healthcare Providers: https://www.fd a.gov/media/071271/download For Patients: https://www.fda.gov/media/ 549408/download Specimen Anatomical Collection Method Collection Time Receive d Time (Source) Location / / Volume Laterality Varies 02/28/2020 12:06 02/28/2020 7:35 (Nasopharynx) PM CDT PM CDT Kee [place] P.A.-C. LAB MICROBIOLOGY - GENERAL O RDERABLES Performing Organization Address City/State/ZIP Code Phon e Number [facility]- [facility] [place] [address] [place] [address] System in [place] [address] [place] [address] documented in this encounter Visit Diagnoses Diagnosis Infection Upper Respiratory - Primary documented in this encounter Additional Health Concerns Infection Onset Date Last Indicated Resolved Time COVID19 Pending 02/28/2020 02/28/2020 02/29/2020 4:25 AM CDT Assessment Noted Time PHQ-9 Depression Total Score: 8 10/13/2017 12:58 PM CD T documented as of this encounter Care Teams Body Joiner Relationship Specialty Start Date End Date Chaparro Payan P.A.-C. PCP - General 02/05/18 [address] [place] [address] documented as of this encounter
--- OUTSIDE RECORDS SUMMARY | 2022-03-19 08:20 | XMS_ITS | Encounter Summary ---
:2000 Author Organization [facility] Address [address] [place] [address] Care Team Providers Name Role Phone Chaparro Payan P.A.-C. Primary Care Provider [phone] Reason for Referral Outpatient (Routine) - Closed Specialty Diagnoses / Procedures Referred By Contact Refer red To Contact Diagnoses Bicuspid Aortic Valve (HCC) Fatigue Phyllis Ramírez M.D. [facility] [place] [facility] Procedures ECG 12 Lead [place] EKG 12 LEAD TRACE ONLY [place] EKG I&R ONLY [address] [facility] [place] [address] Referral ID Status Reason Start Date Expiration Date Visits Requ ested Visits Authorized [id number] Closed 09/03/2017 03/02/2018 1 1 Outpatient (Routine) - Closed Specialty Diagnoses / Procedures Referred By Contact Refer red To Contact Diagnoses Bicuspid Aortic Valve (HCC) Fatigue par review Phyllis Ramírez M.D. [facility] [place] [facility] Procedures Echo Transthoracic (TTE) [place] ECHO TTE 2D W DPLR COMPLETE CVD ECHO [address] [place] [address] Referral ID Status Reason Start Date Expiration Date Visits Requ ested Visits Authorized [id number] Closed 09/03/2017 03/02/2018 1 1 Reason for Visit Reason Comments Annual Exam Encounter Details Date Type Department Care Team Description 09/03/2017 Comprehensive Visit Department of [place], Phyllis Well A dult Examination Abnormal (Primary Dx); Family MedicineMaggy M.D. Overweight Body Mass Index 25-29.9 Adult ; [facility], [address] [facility] Bicuspid Aortic Valve (HCC); in [place], [place] Constipation Slow Transit; [place] [address] Dysmenorrhea; [address] [facility] AV [phone] Management Contraceptive; [place], [place] (Work) Fatigue; [phone] Screening Examination For [...] How often do you attend religious or latter day 1 to 4 times [...] % 09/03/2017 10:25 AM CDT Growth Chart: [facility] (Girls, 2-20 Years) documented in this [...] Signature Source URINE, FIRST 09/06/2017 [facility] VOID 12:11 PM CDT [facility] Chlamydia Negative Negative 09/06/2017 [facility] trachomatis 12:11 PM CDT [facility] [...] - GENERAL O RDERABLES Performing Organization Address City/[facility]/ZIP Code Phon e Number [facility] [address] [place] [address] LAB ECG 12 Lead (09/03/2017 11:16 AM CDT) P athologist Signature Ventricular Rate 77 BPM MUSE ECG/Min [place] Interval 136 ms MUSE QRSD Interval 80 ms MUSE QT Interval 330 ms MUSE QTC Interval 373 ms MUSE P [place] 31 degrees MUSE R [place] 7 degrees MUSE T Wave [place] 31 degrees MUSE Specimen Anatomical Collection Method Collection Time Receive d Time (Source) Location / / Volume Laterality 09/03/2017 11:16 09/03/2017 AM CDT 11:42 AM CDT Impressions MUSE - 09/03/2017 11:42 AM CDT Normal sinus rhythm Nonspecific ST abnormality No previous ECGs available Narrative This result has an attachment that is no t available. Phyllis Ramírez M.D. ECG ORDERABLES Performing Organization Address [facility]/ZIP Code Phon e Number MUSE MUSE NA S-TSH (Thyroid-Stimulating Hormone - Sensitive) (09/03/2017 11:08 AM CDT) P athologist Signature TSH, Sensitive 1.4 0.5 - 4.3 09/03/2017 [facility] mIU/L 1:46 PM CDT [facility] Comment: Biotin has been identified by the jose matthews as a potential interfering substance. ??Higher concentr ations of biotin may be found in multivitamins, hair/nail supple ments, and workout supplements. ??If the result does not [facility] clinical observations, repeat testing after patient refrains fr om the use of supplements for at least 12 hours. Specimen Anatomical Collection Method Collection Time Receive d Time (Source) Location / / Volume Laterality Blood (Blood, 09/03/2017 11:08 09/03/2017 1:09 Venous) AM CDT PM CDT Phyllis Ramírez M.D. LAB BLOOD ADD-ON Performing Organization Address City/State/ZIP Code Phon e Number [facility] [address] [place] [address] LAB (ABNORMAL) Lipid Panel (09/03/2017 11:08 AM CDT) athologist Signature Cholesterol, 205 (H) mg/dL 09/03/2017 [facility] Total 1:46 PM CDT [facility] Comment: ----REFERENCE VALUE---- Desirable: < 200 Borderline high: 200 - 239 High: > or = 240 Triglycerides 206 (H) mg/dL 09/03/2017 1:46 PM CDT [facility] [place] [facility] Comment: ----REFERENCE VALUE---- Normal: <150 Borderline high: 150-199 High: 200-499 Very high: > or =500 Cholesterol, HDL, S 50 >=50 mg/dL 09/03/2017 1:[address] [facility] Calculated LDL 114 mg/dL 09/03/2017 1:46 PM CDT [facility] [place] [facility] Comment: ----REFERENCE VALUE---- Desirable: <100 Above Desirable: 100-129 Borderline high: 130-159 High: 160-189 Very high: > or =190 Cholesterol, Non-HDL, 155 mg/dL 09/03/2017 1:[address] [facility] [place] [facility] Comment: ----REFERENCE VALUE---- Desirable: <130 Above Desirable: 130-159 Borderline high: 160-189 High: 190-219 Very high: > or =220 Specimen Anatomical Collection Method Collection Time Receive d Time (Source) Location / / Volume Laterality Blood (Blood, 09/03/2017 11:08 09/03/2017 1:09 Venous) AM CDT PM CDT Phyllis Ramírez M.D. LAB BLOOD ADD-ON Performing Organization Address City/[facility]/ZIP Code Phon e Number [facility] [address] [place] [address] LAB AST (Aspartate Aminotransferase) (09/03/2017 11:08 AM CDT) Patholo gist Method Time Signature Aspartate 16 8 - 43 09/03/2017 [facility] Aminotransferase U/L 1:46 PM CDT [facility] Specimen Anatomical Collection Method Collection Time Receive d Time (Source) Location / / Volume Laterality Blood (Blood, 09/03/2017 11:08 09/03/2017 1:09 Venous) AM CDT PM CDT Phyllis Ramírez M.D. LAB BLOOD ADD-ON Performing Organization Address City/[facility]/ZIP Code Phon e Number [facility] [place] [address] [place] [address] LAB (ABNORMAL) BMP (Basic Metabolic Panel) (09/03/2017 11:08 AM CDT) Analysis Performed At Patho logist Time Signature Potassium, S 4.1 3.6 - 5.2 09/03/2017 [facility] mmol/L 1:46 PM CDT [facility] [place] [facility] Sodium, S 142 135 - 145 09/03/2017 [facility] mmol/L 1:46 PM CDT [facility] [place] [facility] Chloride, S 101 98 - 107 09/03/2017 [facility] mmol/L 1:46 PM CDT [facility] [place] [facility] Bicarbonate, S 30 (H) 22 - 29 09/03/2017 [facility] mmol/L 1:46 PM CDT [facility] [place] [facility] Anion Gap 11 7 - 15 09/03/2017 [facility] 1:46 PM CDT [facility] [place] [facility] BUN (Blood Urea 8 6 - 21 09/03/2017 [facility] Nitrogen), S mg/dL 1:46 PM CDT [facility] [place] [facility] Creatinine 0.56 (L) 0.59 - 09/03/2017 [facility] 1.04 mg/dL 1:46 PM T [facility] eGFR-Non >90 >=60 09/03/2017 [facility] Black/ mL/min/BSA 1:46 PM T [facility] [place] [facility] Comment: ----ADDITIONAL INFORMATION---- Estimated GFR calculated using the 2009 CKD_EPI creatinine equation. eGFR-Black/ >90 >=60 mL/min/BSA 2017 1:46 PM [facility] Comment: ----ADDITIONAL INFORMATION---- Estimated GFR calculated using the 2009 CKD_EPI creatinine equation. Calcium, Total, S 9.6 9.1 - 10.3 mg/dL 09/03/2017 1 :[address] [facility] Glucose, S 80 70 - 140 mg/dL 09/03/2017 1:46 PM CDT [facility] Specimen Anatomical Collection Method Collection Time Receive d Time (Source) Location / / Volume Laterality Blood (Blood, 09/03/2017 11:08 09/03/2017 1:09 Venous) AM CDT PM CDT Phyllis Ramírez M.D. LAB BLOOD ADD-ON Performing Organization Address City/State/ZIP Code Phon e Number [facility] [address] [place] [address] LAB CBC with Differential (09/03/2017 11:08 AM CDT) P athologist Signature Hemoglobin 13.6 11.6 - 09/03/2017 [facility] 15.0 g/dL 11:36 AM [facility] Hematocrit 40.7 35.5 - 09/03/2017 [facility] 44.9 % 11:36 AM T [facility] Erythrocytes 4.60 3.92 - 09/03/2017 [facility] 5.13 11:36 AM CDT [facility] x10(12)/[facility] MCV 88.5 78.2 - 09/03/2017 [facility] 97.9 fL 11:36 AM [facility] RBC Distrib Width 13.2 12.2 - 09/03/2017 [facility] 16.1 % 11:36 AM CDT [facility] [place] [facility] Platelet Count 307 157 - 371 09/03/2017 [facility] x10(9)/L 11:36 AM CDT [facility] [place] [facility] Leukocytes 8.7 3.4 - 9.6 09/03/2017 [facility] x10(9)/L 11:36 AM T [facility] [place] [facility] Neutrophils 5.74 1.56 - 09/03/2017 [facility] 6.45 11:36 AM CDT [facility] x10(9)/L [facility]- [place] [facility] Lymphocytes 2.36 0.95 - 09/03/2017 [facility] 3.07 11:36 AM CDT [facility] x10(9)/L [facility]- [place] [facility] Monocytes 0.48 0.26 - 09/03/2017 [facility] 0.81 11:36 AM CDT [facility]ALTH x10(9)/L [facility]- [place] [facility] Eosinophils 0.08 0.03 - 09/03/2017 [facility] 0.48 11:36 AM CDT [facility]ALTH x10(9)/L [facility]- [place] [facility] Basophils 0.01 0.01 - 09/03/2017 [facility] 0.08 11:36 AM CDT [facility] x10(9)/L [facility]- [place] [facility] Specimen Anatomical Collection Method Collection Time Receive d Time (Source) Location / / Volume Laterality Blood (Blood, 09/03/2017 11:08 09/03/2017 Venous) AM CDT 11:08 AM CDT Phyllis Ramírez M.D. LAB BLOOD ADD-ON Performing Organization Address City/State/ZIP Code Phon e Number - [address] [place] [address] [facility] - [address] [place] [address] [facility] documented in this encounter Visit Diagnoses Diagnosis Well Adult Examination Abnormal - Primar y Overweight Body Mass Index 25-29.9 Adult Bicuspid Aortic Valve (HCC) Constipation Slow Transit Dysmenorrhea Management Contraceptive Fatigue Screening Examination For Chlamydial Dis ease Screening Lipid Bicuspid Aortic Valve (HCC) Fatigue documented in this encounter Care Teams Process Consultant Relationship Specialty Start Date End Date Chaparro Payan P.A.-C. PCP - General 02/05/18 [address] [place] [address] documented as of this encounter
--- OUTSIDE RECORDS SUMMARY | 2022-03-19 08:20 | XMS_ITS | Encounter Summary ---
:2000 Author Organization [facility] Address [address] [place] [address] Care Team Providers Name Role Phone Chaparro Payan P.A.-C. Primary Care Provider [phone] Reason for Visit Reason Onset Date Comments Testing For Upper Respiratory Virus Symptoms 06/23/2020 Encounter Details Date Type Department Care Team Description 06/23/2020 External Outreach Department of [facility] Guzman And Internal Medicine in [place] (Suspected) Exposure [place], [place] [address] [place] [address] To COVID-19 (Primary [address] [place], [place] Dx) [place] [phone] Social History Tobacco Use Types Packs/Day Years [...] often do you attend oriental orthodox or worship 1 to 4 times per [...] Influenza, RSV, and/or Group A Strep testing. LRY REPAIRER documented in this encounter Plan of Treatment Not on filedocumented as of this encounter Procedures Procedure Name Priority Date/Time Associated Diagnosis Comme nts SARS CORONAVIRUS-2 Routine 06/23/2020 1:35 PM Contact With And Results for this RNA, V JEWELRY REPAIRER (Suspected) Exposure procedu re are in To COVID-19 the results section. documented in this encounter Results SARS Coronavirus-2 RNA, V Symptomatic (06/23/2020 1:35 PM JEWELRY REPAIRER) [facility] Method Time Signature SARS-CoV-2 Swab, 06/24/2020 [facility] Specimen Nasopharynx 2:17 PM JEWELRY REPAIRER Source SARS CoV-2 Undetected Undetected 06/24/2020 [facility] RNA, TMA 2:17 PM JEWELRY REPAIRER Comment: SARS-CoV-2 RNA absent. This result does not rule out COVID-19 in the patient, as the sensitivity of the test depends o n the timing of the specimen collection and the quality of the specim en. Result should be correlated with patient's history and clinical presentat ion. ----ADDITIONAL INFORMATION---- This molecular amplification test was pe rformed using the Aptima SARS-CoV-2 assay ([employer] on the [employer] [facility] [place] tem under emergency use authorization (EUA) by the U.S. Food and Drug Administ ration. Fact sheets for this EUA assay can be fo und at the following links: For Healthcare Providers: https://www.fd a.gov/media/907581/download For Patients: https://www.fda.gov/media/ 479031/download Specimen Anatomical Collection Method Collection Time Receive d Time (Source) Location / / Volume Laterality Varies 06/23/2020 1:35 PM 6:28 (Nasopharynx) JEWELRY REPAIRER AM JEWELRY REPAIRER Wood Guzman D.O. LAB MICROBIOLOGY - GENERAL O JIMMY Performing Organization Address City/State/ZIP Code Phon e Number [facility]- [address] [place] [address] [place] [address] [address] documented in this encounter Visit Diagnoses Diagnosis Contact With And (Suspected) Exposure To COVID-19 - Primary documented in this encounter Additional Health Concerns Infection Onset Date Last Indicated Resolved Time COVID19 Pending 06/23/2020 06/23/2020 06/24/2020 2:18 PM JEWELRY REPAIRER Assessment Noted Time PHQ-9 Depression Total Score: 8 10/13/2017 12:58 PM CD T documented as of this encounter Care Teams Luncheonette Operator Relationship Specialty Start Date End Date Chaparro Payan P.A.-C. PCP - General 02/05/[address] [place] [phone] documented as of this encounter
--- OUTSIDE RECORDS SUMMARY | 2022-03-19 08:20 | XMS_ITS | Encounter Summary ---
:2000 Author Organization [facility] Address [address] [place] [address] Care Team Providers Name Role Phone Chaparro Payan P.A.-C. Primary Care Provider Encounter Details Date Type Department Care Team Description 02/20/2020 Orders Only [facility] MNT Chaparro Payan P.A.-C. [address] [place] [address] (Wo rk) Social History [...] How often do you attend religion or rastafarian 1 to 4 times per [...] documented as of this encounter Care Teams Health Associate Relationship Specialty Start Date End Date Chaparro Payan P.A.-C. PCP - General 02/05/[address] [place] [phone] documented as of this encounter
--- OUTSIDE RECORDS SUMMARY | 2022-03-19 08:20 | XMS_ITS | Encounter Summary ---
:2000 Author Organization [facility] Address [address] [place] [address] Care Team Providers Name Role Phone Chaparro Payan P.A.-C. Primary Care Provider [phone] Encounter Details Date Type Department Care Team Description 06/23/2020 Admin Visit Department of Family Medicine, [address] [address] [facility] [phone] Social History Tobacco Use Types Packs/Day Years [...] How often do you attend pentecostalism or anabaptism 1 to 4 times per [...] COVID19 Pending 06/23/2020 06/23/2020 06/24/2020 2:18 PM SCENERY BUILDER Assessment Noted Time PHQ-9 Depression Total Score: 8 10/13/2017 12:58 PM CD T documented as of this encounter Care Teams Frame Stripper And Crusher Relationship Specialty Start Date End Date Chaparro Payan P.A.-C. PCP - General 02/05/[address] [place] [phone] documented as of this encounter
--- OUTSIDE RECORDS SUMMARY | 2022-03-19 08:20 | XMS_ITS | Encounter Summary ---
:2000 Author Organization [facility] Address [address] [place] [address] Care Team Providers Name Role Phone Chaparro Payan P.A.-C. Primary Care Provider [phone] Reason for Visit Reason Comments COVID Inquiry Encounter Details Date Type Department Care Team Description 07/12/2020 Clinical Communication Department of KATHIE [facility] Han[facility], [address] [address] [place], [place] [phone] (Work) [phone] Social History Tobacco Use Types Packs/Day Years [...] this encounter Miscellaneous Notes Telephone Encounter - Neelam Sung - 07/12/2020 2:41 PM CST What is [...] LABORATORY CONFIRMED case ofCOVID-19?: Yes exposure noted. [place] patient, instruct to quarantine, testing indicated (End Screening) Testing Recommendation Endpoint Is testing recommended? : Recommended to test Plan: Endpoint recommendation: Testing indicated, advised to be swabbed for COVID-19 Only , sent to [facility] located at [address] [place] [address]. The entrance is on the north side of the building. You must call [phone] during the hours of 7am to 6 [...] sending patient for testing in T or [facility], route encounter to the correct testing pool. OLL TECHNICIAN documented in this encounter Plan of Treatment Not on filedocumented as of this encounter Visit Diagnoses Not on filedocumented in this encounter Additional Health Concerns Assessment Noted Time PHQ-9 Depression Total Score: 8 10/13/2017 12:58 PM CD T documented as of this encounter Care Teams Bunk House Worker Relationship Specialty Start Date End Date Chaparro Payan P.A.-C. PCP - General 02/05/[address] [place] [phone] documented as of this encounter
--- OUTSIDE RECORDS SUMMARY | 2022-03-19 08:20 | XMS_ITS | Encounter Summary ---
:1998 Author Organization [facility] Address [address] [place] [address] Care Team Providers Name Role Phone Unavailable Primary Care Provider Unavailable Encounter Details Date Type Department Care Team Description 04/30/2015 Hospital Encounter HX NO MAPPING Miranda Reece APRN, C.N.P., M. S.N. [address] [place], [place] [phone] (Wo rk) Social History [...] How often do you attend tenriism or nondenominational 1 to 4 times per [...] Historical Provider Ser - 04/30/2015 11:59 PM AQUATIC BIOLOGIST Coding Summary-Paper Based CODING DATE: 05/13/2015 FINAL [facility] STATUS: * Discharged to Home or [...] HOLLY Date Saved: 05/13/2015 10:25 am Source: [email or web address] Document Id: [id number] documented in this encounter Plan of Treatment Not on filedocumented as of this encounter Visit Diagnoses Not on filedocumented in this encounter
--- OUTSIDE RECORDS SUMMARY | 2022-03-19 08:20 | XMS_ITS | Encounter Summary ---
:2000 Author Organization [facility] Address [address] [place] [address] Care Team Providers Name Role Phone Chevy, Miranda Guadalupe APRN C.N.P., M.S.N. Primary Care Pr ovider Reason for Visit Reason Comments Follow-up ER - [place] Encounter Details Date Type Department Care Team Description 10/13/2017 Office Visit Department of Family Chaparro Payan Bi cuspid Aortic Valve (HCC) (Primary Dx); Medicine, [facility], in [address] [facility] [address] [place], [place] [phone] [address] (Work) [phone] Social History Tobacco Use Types Packs/Day Years [...] How often do you attend protestant or scientologist 1 to 4 times per [...] 10/13/2017 12:52 PM C DT Growth Chart: [facility] (Girls, 2-20 Years) documented in this [...] bothering her. 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 Chaparro GONZALEZ DIAGNOSTIC IMAGING PROCE DURDEMARCUS documented in this encounter Visit Diagnoses Diagnosis Bicuspid Aortic Valve (HCC) - Primary Pain Back Pain Back documented in this encounter Additional Health Concerns Assessment Noted Time PHQ-9 Depression Total Score: 8 10/13/2017 12:58 PM CD T documented as of this encounter Care Teams Machine Etcher Relationship Specialty Start Date End Date Chevy, Miranda Guadalupe APRN, C.N.P., PCP - General 02/04/18 M.S.N. [address] [place] [address] documented as of this encounter
--- OUTSIDE RECORDS SUMMARY | 2022-03-19 08:21 | XMS_ITS | Encounter Summary ---
:2000 Author Organization [facility] Address [address] [place] [address] Care Team Providers Name Role Phone Unavailable [...] How often do you attend shinto or mormon 1 to 4 times per [...] results section. DX CHEST AND Routine 1998 9:31 AM Re [...] section. documented in this encounter Results DX Chest and Abdomen Portable 1 View [...] Electronically signed by: ?? Yoli Hickman MD. ??[phone] 15:04 Procedure Note Cecily Hickman M.D. [...] [id number] 1 2:29 Robert Nick M.D. IML[facility] DIAGNOSTIC IMAGING PROCE DURES DX [...] AM 9 5:11 CDT PM CDT Narrative [facility] - 1998 9:09 AM CDT 1998 ?[id number] ?Ro ?09:09 ?? Subsq Order for NB: ?Blood Component ?R BC, Irradiated Leukoreduced ?CPDA-1, Divided ?Transfused ? 28 Jan 1999 ?Unit Number Id ? [id number] Procedure Note 09/15/2017 1998 [id number] Ro 09:09 Subsq Order for NB: Blood Component RBC, Irradiated Leukore duced CPDA-1, Divided Transfused 28 Jan 1999 Unit Number Id [id number] Historical Provider LAB HISTORICAL ORDERS Performing Organization Address City/State/ZIP Code Phon e Number [facility] - [address] [place], [place] [address] [facility] Prepare Red Blood Cells (1998 9:08 AM CDT) Specimen Anatomical Collection Method Collection Time Receive d Time (Source) Location / / Volume Laterality 1998 9:08 AM 9 2:17 CDT PM CDT Narrative [facility] - 1998 9:08 AM CDT 1998 ?[id number] ?Ro ?09:08 ?? RBC TRF Order: ?ABO/RH ? O POS ?Antibody Screen ?N eg Procedure Note 09/15/2017 1998 [id number] Ro 09:08 RBC TRF Order: ABO/RH O POS Antibody Screen Neg Historical Provider BLOOD BANK PRODUCT ORDERABLE S Performing Organization Address [facility] Phon e Number [facility] - [address] [place] [address] [facility] ABORh, RBC (1998 9:08 AM CDT) Specimen Anatomical Collection Method Collection Time Receive d Time (Source) Location / / Volume Laterality 1998 9:08 AM 9 9:54 CDT AM CDT Narrative [facility] - 1998 9:08 AM CDT 1998 ?[id number] ?Ro ?09:08 ?? ABO and Rh Order (2): ?ABO/RH ? O POS Procedure Note 09/15/2017 1998 [id number] Ro 09:08 ABO and Rh Order (2): ABO/RH O POS Historical Provider LAB BLOOD BANK TEST ORDERABL ES Performing Organization Address [facility] Code Phon e Number [facility] - [address] DX Infant Chest and Abdomen Portable 1 [...] normal limits. Electronically signed by: Chris Vega [phone] 09:53 Clinton Luan M.D. [facility]ML[facility] DIAGNOSTIC IMAGING PROCE BARRETT documented in this encounter Visit Diagnoses Not on filedocumented in this encounter
--- OUTSIDE RECORDS SUMMARY | 2022-03-19 08:21 | XMS_ITS | Encounter Summary ---
:1998 Author Organization [facility] Address [address] [place] [address] Care Team Providers Name Role Phone Unavailable Primary Care Provider Unavailable Encounter Details Date Type Department Care Team Description 01/30/2011 Hospital Encounter HX [facility] Elmo Kitchen, BEL, C.N.P., D. N.P. [address] [place], [place] [address] (Wo rk) Social History [...] How often do you attend restoration or scientology 1 to 4 times per [...] 01/30/2011 1:23 PM CD T Growth Chart: [facility] (Girls, 2-20 Years) documented in this encounter Progress Notes Lisa Kitchen APRN, C.N.P. - 01/30/2011 12:00 AM CDT [id number] CHIEF COMPLAINT / REASON FOR VISIT 10 [...] dad and patient as documented on the [facility] clinic visit sheet which will [...] CNP On: 02/06/2011 02:26 pm Source: [facility] MHSDOLBEYNONRADSYS Document Id: [id number] documented in this encounter Procedure Notes Conversion, Historical Provider Ser - 01/30/2011 1:23 PM CDT Vision Testing Vision Testing Entered On: 01/30/2011 13:25 CDT Performed On: 01/30/2011 13:23 CDT by CHARO TENORIO Vision Testing Corrective Lenses: Glasses Eye, Right w/o Correction: 20/80 Eye, Left w/o Correction: 20/50 CHARO TENORIO - 01/30/2011 13:23 CDT Source: [facility] POWERCHART Document Id: [id number] CDT!5 documented in this encounter Miscellaneous Notes Miscellaneous - Lisa Kitchen APRN, C.N.P. - 01/30/2011 3:09 PM CDT Ambulatory Patient Summary [address] [id number] Visit Information Name: CITLALY HOLLAND Current Date: [...] No Appointments found Your Goals/Additional instructions: Source: Send[employer] Document Id: [id number] Miscellaneous - Lisa Kitchen, BEL, C.N.P. - 01/30/2011 3:09 PM CD[place] [address] Visit Information Name: CITLALY HOLLAND Current Date: [...] to the patient and/or family, guardian/caregiver. Source: [employer] Document Id: [id number] Miscellaneous - Conversion, Historical Provider Ser - 01/30/2011 1:23 PM CDT Pediatric Cmm Operator Intake/History Document Has Been Updated Pediatric Cmm Operator Intake/History Entered On: 01/30/2011 13:24 CDT Performed On: 01/30/2011 13:23 CDT by CHARO TENORIO Intake Chief Complaint: well child 10 yrs ol CHARO TENOIRO - 01/30/2011 15:30 CDT Temperature Core: 36.7C(Converted [...] Reviewed Date: 01/30/2011 13:27 CDT Source: [facility] POWERCHART Document Id: [id number] CDT!3 documented in this encounter Plan of Treatment Not on filedocumented as of this encounter Visit Diagnoses Not on filedocumented in this encounter
--- OUTSIDE RECORDS SUMMARY | 2022-03-19 08:21 | XMS_ITS | Encounter Summary ---
:2000 Author Organization [facility] Address [address] [place] [address] Care Team Providers Name Role Phone Unavailable Primary Care Provider Unavailable Encounter Details Date Type Department Care Team Description 04/17/2011 Hospital Encounter HX [facility] FAMILY[facility]A Norman Payan P.A.-C. [address] [place] [address] (Wo rk) Social History Tobacco [...] How often do you attend orthodox or sabianist 1 to 4 times per [...] (97 lb 7.1 oz) 04/17/2011 3:56 PM OCCUPATIONAL THERAPIST ASSISTANT Height 149.2 cm (4' 10.74) 04/17/2011 3:56 PM OCCUPATIONAL THERAPIST ASSISTANT Body Mass Index 19.86 04/17/2011 3:56 PM OCCUPATIONAL THERAPIST ASSISTANT Body Mass Index Percentile 69.40 % 04/17/2011 3:56 PM CS T Growth Chart: [facility] (Girls, 2-20 Years) documented in this encounter Progress Notes Mikael Payan P.A.-C. - 04/17/2011 12:00 AM CST [id number] CHIEF COMPLAINT/ REASON FOR VISIT Sport's history and physical. HISTORY OF PRESENT ILLNESS Hernandez is a very pleasant 10-year-old girl who [...] recommend that she follow up with an rocket motor tester for further evaluation and treatment of this and otherwise she may participate in sports without any restrictions. If there are any questions or problems she will let us know, otherwise follow up as needed. LILLIAN/celenan Signed [facility] Electronically Signed By: MIKAEL PAYAN PA-C On: 04/20/2011 01:49 PM Source: [facility] MHSDOLBEYNONRADSYS Document Id: [id number] PATIONAL THERAPIST ASSISTANT documented in this encounter Procedure Notes Conversion, Historical Provider Ser - 04/17/2011 4:36 PM CST Vision Testing Vision Testing Entered On: 04/17/2011 16:36 OCCUPATIONAL THERAPIST ASSISTANT Performed On: 04/17/2011 16:36 OCCUPATIONAL THERAPIST ASSISTANT by NUVIA, BEVELYN G RAISE DRILL OPERATOR Vision Testing Corrective Lenses : None Eye, Right w/o Correction : 20/50 Eye, Left w/o Correction : 20/70 NUVIALACHOSesar Lucía KIM - 04/17/2011 16:36 OCCUPATIONAL THERAPIST ASSISTANT Source: [facility] Qoiza Document Id: [id number] OCCUPATIONAL THERAPIST ASSISTANT!5 documented in this encounter Miscellaneous Notes Miscellaneous - Mikael Payan P.A.-C. - 04/17/2011 4:28 PM CST Ambulatory Patient Summary [address] [address] Visit Information Name: HERNANDEZ HOLLAND Current Date: 04/17/2011 16:28:30 Primary Care [...] No Appointments found Your Goals/Additional instructions: Source: [facility] POWERCHART Document Id: [id number] PATIONAL THERAPIST ASSISTANT Miscellaneous - Mikael Payan P.A.-C. - 04/17/2011 4:28 PM CST Ambulatory Depart Summary [address] [address] Visit Information Name: HERNANDEZ HOLLAND Current Date: 04/17/2011 16:28:29 Primary Care Provider: BERNY SCHILLING CNP HERNANDEZ HOLLAND has been given the following list [...] for Pain / Fever Additional Information: Source: [facility] POWERCHART Document Id: [id number] PATIONAL THERAPIST ASSISTANT Miscellaneous - Conversion, Historical Provider Ser - 04/17/2011 3:56 PM OCCUPATIONAL THERAPIST ASSISTANT Pediatric Ship Worker Intake/History Pediatric Ship Worker Intake/History Entered On: 04/17/2011 15:59 OCCUPATIONAL THERAPIST ASSISTANT Performed On: 04/17/2011 15:56 OCCUPATIONAL THERAPIST ASSISTANT by VIVIAN PEDERSEN LPN Intake Peripheral Pulse Rate : 84/min Respiratory Rate : 20/min Systolic Blood Pressure : 106mmHg Diastolic Blood Pressure : 52mmHg NIBP Mean : 70mmHg BP Location : Right upper extremity Heart Rhythm : Regular VIVIAN PEDERSEN LPN - 04/17/2011 15:59 OCCUPATIONAL THERAPIST ASSISTANT Chief Complaint : Sports physical Ambulatory Intake Additional Information : Arm span:145 cm Temperature Oral : 36.7C(Converted to: 98.1DegF) Height : 149.2cm(Converted to: 4ft 11inch(es), 58.74inch(es)) Actual Weight : 44.2kg(Converted to: 97lb 7oz) Weight Source : Standing scale Dosing Weight Clinic : 44.20kg Clinic BSA : 1.35 Body Mass Index : 19.86kg/m2 VIVIAN PEDERSEN LPN - 04/17/2011 15:56 OCCUPATIONAL THERAPIST ASSISTANT Subjective Pain Symptoms : No VIVIAN PEDERSEN [facility] - 04/17/2011 15:56 OCCUPATIONAL THERAPIST ASSISTANT Dependent Habits Tobacco Use/Currently Using : No Tobacco Use/Last 12 months : No Smoking Status : Never smoker Alcohol Use : No VIVIAN PEDERSEN [facility] - 04/17/2011 15:56 OCCUPATIONAL THERAPIST ASSISTANT Caffeine Use Grid Caffeine Use : Current Type : Chocolate, Soft drinks Frequency : Monthly Amount : 2 times per month Last Use : today VIVIAN PEEDRSEN [facility] 04/17/2011 15:56 OCCUPATIONAL THERAPIST ASSISTANT Recreational Drug Use Grid Drug Use : None VIVIAN PEDERSEN [facility] 04/17/2011 15:56 OCCUPATIONAL THERAPIST ASSISTANT Allergy Allergies (Active) penicillin Estimated Onset Date: Unspecified ; Created By: CHARO TENORIO; Reaction Status: Active ; Category: Drug ; Substance: penicillin ; Type: Allergy ; Severity: Mild ; Updated By: CHARO TENORIO; Source: Family ; Reviewed Date: 04/17/2011 15:52 OCCUPATIONAL THERAPIST ASSISTANT Source: [facility] POWERCHART Document Id: [id number] OCCUPATIONAL THERAPIST ASSISTANT!9 documented in this encounter Plan of Treatment Not on filedocumented as of this encounter Visit Diagnoses Not on filedocumented in this encounter
--- OUTSIDE RECORDS SUMMARY | 2022-03-19 08:21 | XMS_ITS | Encounter Summary ---
:2000 Author Organization [facility] Address [address] [place] [address] Care Team Providers Name Role Phone Chaparro Payan P.A.-C. Primary Care Provider [phone] Encounter Details Date Type Department Care [...] often do you attend latter day or catholic 1 to 4 times per [...] documented as of this encounter Progress Notes Akira Forbes M.D. - 06/15/2003 12:00 AM CST Eye [...] no amblyopia CDM Reports - EYEGEN Id: [id number] Status: Fnl documented in this encounter Plan of Treatment Not on filedocumented as of this encounter Visit Diagnoses Not on filedocumented in this encounter Additional Health Concerns Infection Onset Date Last Indicated Resolved Time COVID19 Pending 02/28/2020 02/28/2020 02/29/2020 4:25 AM CDT COVID19 Pending 03/27/2020 03/28/2020 03/29/2020 10:23 PM CDT COVID19 Pending 06/23/2020 06/23/2020 06/24/2020 2:18 PM STOVE CLEANER COVID19 Pending 07/12/2020 07/12/2020 07/13/2020 1:56 AM STOVE CLEANER documented as of this encounter Care Teams Elevator Serviceman Relationship Specialty Start Date End Date Chaparro Payan P.A.-C. PCP - General 02/05/[address] [place] [phone] documented as of this encounter
--- OUTSIDE RECORDS SUMMARY | 2022-03-19 08:21 | XMS_ITS | Encounter Summary ---
:1998 Author Organization [facility] Address [address] [place] [address] Care Team Providers Name Role Phone Unavailable [...] How often do you attend quaker or protestant 1 to 4 times per [...] results section. DX CHEST AND Routine 1998 3:19 PM Re [...] results section. DX CHEST AND Routine 1998 10:05 Resu lts for this ABDOMEN PORTABLE 1 VIEW PM CDT proc edure are in the results section. DX CHEST AND Routine 1998 6:07 AM Re [...] section. DX INFANT CHEST AND Routine 1998 6:17 AM Re [...] 2 VIEWS the result s section. DX INFANT CHEST AND Routine 1998 11:56 Resu lts for this ABDOMEN PORTABLE 1 VIEW AM CDT proc edure are in the results section. DX CHEST AND Routine 1998 6:13 AM Re [...] section. DX INFANT CHEST AND Routine 1998 6:57 AM Re sults for this ABDOMEN PORTABLE 1 VIEW CDT proc edure are in the results section. US HEAD Routine 1998 4:08 PM Resul ts for this CDT procedure are i n the results section. DX CHEST AND Routine 1998 7:42 AM Re sults for this ABDOMEN PORTABLE 1 VIEW CDT proc edure are in the results section. DX INFANT CHEST AND Routine 1998 5:47 PM Re sults for this ABDOMEN PORTABLE 1 VIEW CDT proc edure are in the results section. DX CHEST AND Routine 1998 1:02 PM Re sults for this ABDOMEN PORTABLE 1 VIEW CDT proc edure are in the results section. DX CHEST AND Routine 1998 8:16 AM Re sults for this ABDOMEN PORTABLE 1 VIEW CDT proc edure are in the results section. DX INFANT CHEST AND Routine 1998 11:37 Resu lts [...] ??Exam: US Cranial Pediatrics Indications: *PORTABLE*HEAD-FOLLOW UP ?[id number] ORIGINAL REPORT - 05-Feb-1999 17:40:00 The brain [...] Cranial Pe diatrics Indications: *PORTABLE*HEAD-FOLLOW UP [id number] ORIGINAL REPORT - 05-Feb-1999 17:40:00 The brain [...] signed by: ?? Yoli Hickman MD. ??430 31-Jan-1999 14:36 Procedure Note Cecily Hickman M.D. [...] Electronically signed by: Yoli Hickman MD. 430 31-Jan-1999 1 4:36 Braulio Franco M.D. IMLuc[facility] DIAGNOSTIC IMAGING PROCE DURES DX Abdomen Portable [...] 31-Jan-1999 1 4:49 Robert GONZALEZ DIAGNOSTIC IMAGING [facility] Report (01/29/1999 1:49 PM CDT) Specimen Anatomical Collection Method Collection Time Receive d Time (Source) Location / / Volume Laterality 01/29/1999 1:49 PM 9 1:49 CDT PM CDT Narrative [facility] - 01/29/1999 1:49 PM CDT [id number] Surgical Pathology Requested By: ? Ruben park M.D. ?([id number]) ?? TISSUE DESCRIPTION: ?? Distal ostomy (2.5 cm with ellipse o f skin) and proximal ostomy (5.2 cm in length) ?? [id number] A1, A2 ?? DIAGNOSIS: ?? Distal ostomy, excision: ??Benign sq uamous epithelium and colonic-type mucosa with mild chronic ?? inflammation. ?? Proximal ostomy, excision: ??Benign small bowel mucosa. ?? 29Jan1999 ?Erik TaverasS.:dam Procedure Note 08/20/2017 29Jan1999 Surgical Pathology Requested By: Ruben Shipley M.D. ([id number]) TISSUE DESCRIPTION: Distal ostomy (2.5 cm with ellipse of s kin) and proximal ostomy (5.2 cm in length) [id number] A1, A2 DIAGNOSIS: Distal ostomy, excision: Benign squamou s epithelium and colonic-type mucosa with mild chronic inflammation. Proximal ostomy, excision: Benign small bowel mucosa. 29Jan1999 Erik TaverasSBettie:suze toney Ruben Shipley M.D. LAB PATHOLOGY/CYTOLOGY ORDER TAYLOR Performing Organization Address City/State/ZIP Code Phon e Number [facility] - [address] Upper GI Double Contrast Without KUB [...] peristalsis. Electronically signed by: John Cassidy MD 497 28-Jan-1999 13:2 3 Hernan GONZALEZ FLUOROSCOPY PROCEDURES [...] stomach. Electronically signed by: John Cassidy MD [phone] 28-Jan-1999 11:0 5 Hernan Maza M.D. IMLuc[facility] DIAGNOSTIC IMAGING PROCE [facility] Small Bowel (01/27/1999 2:36 PM CDT) Anatomical [...] Electronically signed by: ?? Yoli Hickman MD. ??[phone] 27-Jan-1999 15:14 Procedure Note Cecily Hickman M.D. [...] pneumotosis. Electronically signed by: Yoli Hickman MD. [phone] 27-Jan-1999 1 5:14 Robert Nick M.D. IMLucía [...] Electronically signed by: ?? Yoli Hickman MD. ??[phone] 27-Jan-1999 15:14 Procedure Note Cecily Hickman M.D. [...] pneumotosis. Electronically signed by: Yoli Hickman MD. [phone] 27-Jan-1999 1 5:14 Robert Nick M.D. IMLucía [...] or co arctation. 2-D COMMENT: ??TAPE NUMBER: [id number]/09:45-34:40 ?Complete two-dimensional, color flow, and Doppler echocardiography [...] SYSTOLIC VALVE AREAS - ROUTIN E - [place]AGA VALVE ? LVOT velocity (V1) ? 0.1 [...] Hg ? Narrative 01/23/1999 12:00 AM CDT [id number] ??ECHO ?FINAL REPORT ?? REPORT DATE: 23Jan1999 REFERRING MD: ??NICU ?RESPONSIBLE MD: ??Travis, P. WBettie [phone] PROCEDURE TYPES: ?? 2-D, Doppler Video, and Color Flow. REFERRAL DIAGNOSIS: ?? Cardiomyopathy. ??Pediatric congenit al heart disease. HEMODYNAMICS: ?? Heart rate 151 BPM. ?? BP=44/31 FINAL Procedure Note Provider, Historical - 08/31/2017Formatt ing of this note might be different from the original. [id number] ECHO FINAL REPORT REPORT DATE: 23Jan1999 REFERRING MD: NICU RESPONSIBLE MD: OJermaine Jefferson [phone] PROCEDURE TYPES: 2-D, Doppler Video, and Color [...] arteriosus or coarctation. 2-D COMMENT: TAPE NUMBER: [id number]/09:45-34:40 Complete two-dimensional, color flow, a nd Doppler [...] AORTIC SYSTOLIC VALVE AREAS - ROUTINE - [place]A VALVE LVOT velocity (V1) 0.1 m/sec Peak Aortic velocity (V2) 0.4 * m/sec 0 .5-1.8 Peak Aortic time monique int(TVI2) 29.0 cm V1/V2 ratio 0.25 LVOT diameter 0.5 cm Valve area (by velocity) 0.05 cm2 Peak velocity obtained from apex TRICUSPID SYSTOLIC - ROUTINE - [place]AGA V ALVE Peak velocity 2.2 m/sec Maximal [...] Electronically signed by: ?? John ??Khanh MICHAEL ??[id number] 07-Jan-1999 13:50 Procedure Note Kaye Cassidy M.D. [...] 100.120 Electronically signed by: John Cassidy MD [phone] 07-Jan-1999 13:5 0 Robert P Derleth M.D. IMG US PROCEDURES HX SUBSEQ ORDER FOR NB? (01/03/1999 12:31 PM CDT) Specimen Anatomical Collection Method Collection Time Receive d Time (Source) Location / / Volume Laterality 01/03/1999 12:31 01/12/1999 1:14 PM CDT AM CDT Narrative [facility] - 01/03/1999 12:31 PM CDT 03 Jan 1999 ?[id number] ?Ro ?12:31 ?? Subsq Order for NB: ?Blood Component ?R BC, Irradiated Leukoreduced ?CPDA-1, Divided ?Transfused ? 04 Jan 1999 ?Unit Number Id ? [id number] Procedure Note 09/15/2017 03 Jan 1999 [id number] Ro 12:31 Subsq Order for NB: Blood Component RBC, Irradiated Leukore duced CPDA-1, Divided Transfused 04 Jan 1999 Unit Number Id [id number] Historical Provider LAB HISTORICAL ORDERS Performing Organization Address City/State/ZIP Code Phon e Number [facility] - [address] [place], [place] [address] [facility] DX Chest and Abdomen Portable 1 View [...] RLQ. Electronically signed by: John Cassidy MD -[phone] 02-Jan-1999 07:3 6 Braulio Franco M.D. [facility]AGNOSTIC [facility]ING [email or web address] Infant Chest and Abdomen Portable 1 [...] signed by: ?? Yoli Hickman MD. ??[phone] 01-Jan-1999 10:59 Procedure Note Cecily Hickman M.D. [...] by: Yoli Hickman MD. [phone] 1 0:02 Braulio Franco M.D. IMG [...] Dave Fields Ph.D. IMG DIAGNOSTIC IMAGING PROCE [facility] DX Chest Portable 1 View (1998 6:45 [...] the abdomen. Electronically signed by: ?? [employer]. Bullis ??[phone] ([id number]) 1998 07:35 I have reviewed the films/images and agr ee with the above interpretation. Electronically signed by: ?? Yoli Hickman MD. ??[phone] 08:58 Procedure Note Cecily Hickman M.D. [...] the abdomen. Electronically signed by: Esequiel Velasco [phone] ([id number]) 1998 07 :35 I have reviewed the films/images and agr ee with the above interpretation. Electronically signed by: Yoli Hickman MD. [phone] 0 8:58 Braulio Franco M.D. IMG [...] RA. Electronically signed by: Yoli Hickman MD. 430 1998 1 5:28 Braulio Franco M.D. IMG [...] by: ?? Yoli Hickman MD. ??430 1998 15:25 Procedure Note Cecily Hickman M.D. - 09/06/2017Form atting of this note might be different from the original. 1998 13:48:00 Exam: Peds - Chest Abdomen Indications: r/u resect bx. ORIGINAL REPORT - 1998 15:25:00 ETt with tip just above david. Prominen t heart size. Lungs are clear. Left subclavina line with tip overlying RA. OG. Electronically signed by: Yoli Hickman MD. 430 1998 1 5:25 Brauloi Franco M.D. IMG DIAGNOSTIC IMAGING PROCE DURES [...] ?? Electronically signed by: ?? Esequiel Velasco ??[phone] ([id number]) 1998 00:24 I have reviewed the [...] of bowel. Electronically signed by: Esequiel Velasco [phone] ([id number]) 1998 00 :24 I have reviewed the films/images and agr ee with the above interpretation. Electronically signed by: Yoli Hickman MD. [phone] 1 5:39 Robert Nick M.D. IMLuc[facility] DIAGNOSTIC IMAGING PROCE [facility] DX Chest and Abdomen Portable 1 [...] catheter. Electronically signed by: ?? Esequiel Velasco ??[phone] ([id number]) 1998 22:14 I have reviewed the films/images and agr ee with the above interpretation. Electronically signed by: ?? Yoli Hickman MD. ??[phone] 15:44 Procedure Note Cecily Hickman M.D. [...] Ball catheter. Electronically signed by: Esequiel Velasco [phone] [id number]) 1998 22 :14 I have reviewed the films/images and agr ee with the above interpretation. Electronically signed by: Yoli Hickman MD. [phone] 1 5:44 Robert Nick M.D. IMG DIAGNOSTIC IMAGING PROCE [facility] DX Chest and Abdomen Portable 1 View [...] air. Electronically signed by: ?? Esequiel Velasco ??[phone] ([id number]) 1998 07:25 I have reviewed the films/images [...] free air. Electronically signed by: Esequiel Velasco [phone] ([id number]) 1998 07 :25 I have reviewed the films/images and agr ee with the above interpretation. Electronically signed by: Yoli Hickman MD. [phone] 0 9:26 Braulio GONZALEZ DIAGNOSTIC IMAGING [facility] DX Chest Portable 1 View (1998 [...] Vega [phone] 14:56 Braulio Franco M.D. IMLucía DIAGNOSTIC IMAGING PROCE DURES HX SUBSEQ ORDER FOR NB? (1998 8:47 AM CDT) Specimen Anatomical Collection Method Collection Time Receive d Time (Source) Location / / Volume Laterality 1998 8:47 AM 9 1:16 CDT AM CDT [facility] - 1998 8:47 AM CDT 1998 ?[id number] ?Ro ?08:47 ?? Subsq Order for NB: ?Blood Component ?R BC, Irradiated Leukoreduced ?CPDA-1, Divided ?Transfused ? 1998 ?Unit Number Id ? [id number] Procedure Note 09/15/2017 1998 [id number] Ro 08:47 Subsq Order for NB: Blood Component RBC, Irradiated Leukore duced CPDA-1, Divided Transfused 1998 Unit Number Id [id number] Historical Provider LAB HISTORICAL ORDERS Performing Organization Address City/State/ZIP Code Phon e Number [facility] [address] [place], [place] [address] [facility] DX Chest and Abdomen Portable 1 View [...] notified. Electronically signed by: ?? Mannie Fu ??[phone] ([id number]) 22-Dec-18 99 21:07 I have reviewed the films/images and agr ee with the above interpretation. Electronically signed by: ?? Chris Vega ??[phone] 21:45 Procedure Note Paolo Vega M.D. [...] notifie d. Electronically signed by: Mannie Fu [phone] ([id number]) 1998 21:07 I have reviewed the films/images and agr ee with the above interpretation. Electronically signed by: Chris Vega [phone] 21:45 Reed GONZALEZ DIAGNOSTIC IMAGING PROCE DURES HX SUBSEQ ORDER FOR NB? (1998 6:34 PM CDT) Specimen Anatomical Collection Method Collection Time Receive d Time (Source) Location / / Volume Laterality 1998 6:34 PM 9 1:16 CDT AM CDT Narrative [facility] - 1998 6:34 PM CDT 1998 ?[id number] ?Ro ?18:34 ?? Subsq Order for NB: ?Blood Component ?R BC, Irradiated Leukoreduced ?CPDA-1, Divided ?Transfused ? 1998 ?Unit Number Id ? [id number] ?Blood Component ?R BC, Irradiated Leukoreduced ?CPDA-1, Divided ?Transfused ? 1998 ?Unit Number Id ? [id number] Procedure Note 09/15/2017 1998 [id number] Ro 18:34 Subsq Order for NB: Blood Component RBC, Irradiated Leukore duced CPDA-1, Divided Transfused 1998 Unit Number Id [id number] Blood Component RBC, Irradiated Leukore duced CPDA-1, Divided Transfused 1998 Unit Number Id [id number] Historical Provider LAB HISTORICAL ORDERS Performing Organization Address City/State/ZIP Code Phon e Number [facility] - [address] [place], [place] [address] [facility] Hx general Pathology Report (1998 6:52 AM CDT) Specimen Anatomical Collection Method Collection Time Receive d Time (Source) Location / / Volume Laterality 1998 6:52 AM 9 6:52 CDT AM CDT Narrative [facility] - 1998 6:52 AM CDT [id number] Surgical Pathology Requested By: ? Bryant Maza M.D. ? ([id number]) ?? TISSUE DESCRIPTION: ?? 4 cm small bowel ?? [id number] A1 ?? DIAGNOSIS: ?? Small bowel, partial resection: ??Se gment of small bowel with marked ischemic changes, ?? consistent with necrotizing enteroco litis. ?? [id number] ?Brian Taveras.S.:mgs Procedure Note 08/20/2017 [id number] Surgical Pathology Requested By: Hernan Maza M.D. ( [id number]) TISSUE DESCRIPTION: 4 cm small bowel [id number] A1 DIAGNOSIS: Small bowel, partial resection: Segment of small bowel with marked ischemic changes, consistent with necrotizing enterocolit is. [id number] Abdi TaverasB.S.:mg s Hernan Maza M.D. LAB PATHOLOGY/CYTOLOGY ORDER TAYLOR Performing Organization Address City/State/ZIP Code Phon e Number [facility] - [address] [place], [place] [address] [facility] DX Chest and Abdomen Portable 1 View [...] Robert Nick M.D. IMG [facility]AGNOSTIC [facility]AGING [facility] DX Infant Chest and Abdomen Portable 1 [...] RA. Electronically signed by: ?? Esequiel Velasco ??[phone] ([id number]) 1998 06:50 I have reviewed the films/images and agr ee with the above interpretation. Electronically signed by: ?? Yoli Hickman MD. ??[phone] 12:15 Procedure Note Cecily Hickman M.D. [...] in RA. Electronically signed by: Esequiel Velasco [phone] ([id number]) 1998 06 :50 I have reviewed the films/images and agr ee with the above interpretation. Electronically signed by: Yoli Hickman MD. [phone] 1 2:15 Robert GONZALEZ DIAGNOSTIC IMAGING PROCE [facility] DX Chest and Abdomen Portable 1 [...] Electronically signed by: ?? John ??Khanh MICHAEL ??497 1998 09:45 Procedure Note Kaye Cassidy M.D. [...] Robert Nick M.D. IMLuc[facility] DIAGNOSTIC IMAGING PROCE [facility] DX Abdomen Portable Anterior Posterior 1 [...] interspace. Electronically signed by: ?? China Arrieta ??[phone] ([id number]) 1998 1 0:03 I have reviewed the films/images and agr ee with the above interpretation. Electronically signed by: ?? John ??Khanh MICHAEL ??497 1998 10:53 Procedure Note Kaye Cassidy M.D. [...] L4-L5 interspace. Electronically signed by: China Arrieta [phone] ([id number]) 1998 10: 03 I have reviewed the films/images and agr ee with the above interpretation. Electronically signed by: John Cassidy MD [phone] 10:5 3 Historical Provider IMG DIAGNOSTIC [...] Electronically signed by: ?? Yoli Hickman MD. ??[phone] 14:12 Procedure Note Cecily Hickman M.D. [...] recommended. Electronically signed by: Yoli Hickman MD. [phone] 1 4:12 Robert P Derleth M.D. IMG DIAGNOSTIC IMAGING PROCE DURES DX [...] by: ?? Yoli Hickman MD. ??[phone] 12:53 Procedure Note Cecily Hickman M.D. [...] by: Yoli Hickman MD. [phone] 1 2:53 Robert Nick M.D. IMG [...] abdomen. Electronically signed by: ?? China Arrieta ??[phone] ([id number]) 1998 0 7:17 I have reviewed the films/images and agr ee with the above interpretation. Electronically signed by: ?? Yoli Hickman MD. ??[phone] 09:22 Procedure Note Cecily Hickman M.D. [...] the abdomen. Electronically signed by: China Arrieta [phone] ([id number]) 1998 07: 17 I have reviewed the films/images and agr ee with the above interpretation. Electronically signed by: Yoli Hickman MD. [phone] 0 9:22 Robert GONZALEZ DIAGNOSTIC IMAGING PROCE DURES DX Chest Portable 1 View (1998 6:56 [...] Electronically signed by: ?? John ??Khanh MICHAEL ??[phone] 07:03 Procedure Note Kaye Cassidy M.D. - 09/06/2017Form atting of this note might be different from the original. 1998 06:56:00 Exam: Portable-Ches t Indications: follow rds ORIGINAL REPORT - 1998 07:03:00 Since yesteray, the ETT has been removed . Enteric tube, UAC, and UVC, remain in place and are unchanged in position. Pulmonary infiltrates have improved. Electronically signed by: John Cassidy MD [phone] 07:0 3 Robert Nick M.D. IMG [...] pattern. Electronically signed by: ?? China Arrieta ??[phone] ([id number]) 1998 0 7:14 I have reviewed [...] gas pattern. Electronically signed by: China Arrieta [phone] ([id number]) 1998 07: 14 I have reviewed the films/images and agr ee with the above interpretation. Electronically signed by: Chris Vega [phone] 10:51 Robert Nick M.D. IMG DIAGNOSTIC IMAGING [facility] US Head (1998 3:48 PM CDT) Anatomical [...] Electronically signed by: ?? Yoli Hickman MD. ??4-30 1998 17:38 Procedure Note Cecily Hickman M.D. [...] D:100.120 Electronically signed by: Yoli Hickman MD. [phone] 1 7:38 Robert Nick M.D. IMG [...] pattern. Electronically signed by: ?? China Arrieta ??[phone] ([id number]) 1998 0 7:54 I have reviewed [...] gas pattern. Electronically signed by: China Arrieta [phone] ([id number]) 1998 07: 54 I have reviewed the films/images and agr ee with the above interpretation. Electronically signed by: John Cassidy MD [phone] 09:0 1 Robert Nick M.D. IMG DIAGNOSTIC IMAGING [facility] US Head (1998 4:08 PM CDT) Anatomical Region Laterality Modality Head N/A Ultrasound Specimen (Source) Anatomical Collection Method Collection Time Re ceived Time Location / / Volume Laterality 1998 4:08 PM CDT Narrative 1998 5:29 PM CDT 1998 16:08:00 ??Exam: US Cranial Pediatrics Indications: *PORTABLE*HEAD-R/O IVH ?1ST [id number] ORIGINAL REPORT - 1998 17:29:00 I:100.705 ??No [...] Electronically signed by: ?? Yoli Hickman MD. ??[phone] 17:29 Procedure Note Cecily Hickman M.D. - 09/06/2017Form atting of this note might be different from the original. 1998 16:08:00 Exam: US Cranial Pe diatrics Indications: *PORTABLE*HEAD-R/O IVH [facility] [id number] ORIGINAL REPORT - 1998 17:29:00 I:100.705 No definite evidence of germin al matrix hemorrhage. Ventricles are normal in size. There is increased echotexture in the periventricular white matter, more prominent on the right. While this may represent a normal halo, periventricular leukomalaci a cannot be excluded. No definite evidence of intraventricular hemorrhage. Corpus callosum is present. D:100.120 Electronically signed by: Yoli Hickman MD. 430 1998 1 7:29 Robert Nick M.D. IMLucía US PROCEDURES DX Chest and Abdomen Portable 1 View [...] by: ?? Yoli Hickman MD. ??430 1998 08:03 Procedure Note Cecily Hickman M.D. [...] loops. Electronically signed by: Yoli Hickman MD. [phone] 0 8:03 Robert Nick M.D. IMG [...] interpretation. Electronically signed by: Yoli Hickman MD. 30 1998 1 0:19 Robert Nick M.D. IMG [...] Vega [phone] 08:21 Clinton Luna M.D. IMLucía DIAGNOSTIC IMAGING PROCE [facility] DX Infant Chest and Abdomen Portable [...] and mid bowel. Electronically signed by: ?? Jermaine Gamino ??[phone] [id number]) 1998 23:46 I have reviewed the films/images and agr ee with the above interpretation. Electronically signed by: ?? John ??Khanh MICHAEL ??[phone] 06:13 Procedure Note Kaye Cassidy M.D. [...] mid bowel. Electronically signed by: Jermaine Gamino [phone] ([id number]) 1998 2 3:46 I have reviewed the films/images and agr ee with the above interpretation. Electronically signed by: John Cassidy MD [phone] 06:1 3 Clinton GONZALEZ DIAGNOSTIC IMAGING PROCE [facility] documented in this encounter Visit Diagnoses Not on filedocumented in this encounter
--- OUTSIDE RECORDS SUMMARY | 2022-03-19 08:21 | XMS_ITS | Encounter Summary ---
:1998 Author Organization [facility] Address [address] [place] [address] Care Team Providers Name Role Phone Unavailable Primary Care Provider Unavailable Encounter Details Date Type Department Care Team Description 02/18/2011 Hospital Encounter HX [facility] Elmo Kitchen, BEL, C.N.P., D. N.P. [address] [place], [place] [address] (Wo rk) Social History [...] How often do you attend rastafari or baptist 1 to 4 times per [...]
== END 2022-03-19 08:16 | disposition home or self-care (01) ==
LOC: NFLDREF 08:17
PROVIDERS: Visit Provider Registered Nurse
DX: R30.0 Dysuria (principal)
CPT/HCPCS: 87086; 87186

== ENCOUNTER 2022-04-13 17:05 | Outpatient (CLI) | payer OTHER, SELFPAY ==
--- OUTSIDE RECORDS SUMMARY | 2022-04-13 08:25 | XMS_ITS | Clinical Summary ---
:1998 Author Organization [facility] [place] [address] Care Team Providers Name Role Phone Chaparro [...] and a bicuspid aortic valve. Follow up [facility] Estimated Date of Delivery Comments Yes [...] 157.5 cm (5' 2) 07/26/2020 1:58 AM SERVICES HOST Body Mass Index 35.43 07/26/2020 1:58 AM SERVICES HOST Plan of Treatment Health Maintenance Due Date [...] Type Group BLUE CROSS BL[employer] OF [id number] 2015-Present [id number] [place] [address] PREFERRED ONE PREFERRED ONE [id number] 2019-Present [address] [place] [address] [phone] [employer] [address] (Home) [place] [address] [address] Personal/Famil Mother [phone] (Home) [address] [place] [phone] [employer] Employer 05/31/2000 [phone] [address] [employer] [address] [phone] (Home) [place] [id number] [employer] Occ Employer 04/10/1911 [phone] ATTN H [employer] [id number] [employer] (Home) [address] [place] [address] [phone] (Work) [place] [phone] 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
[2022-04-13 08:48] LABS: Glucose Fasting Check 95 mg/dl (60-115)
[2022-04-13 09:55] LABS: Ur HCG Qualitative* Negative (Negative)
[2022-04-13 11:38] LABS: Glucose Fasting 87 mg/dl (70-95)
[2022-04-13 11:38] LABS: Glucose 2 Hour 151 mg/dl (70-95)
== END 2022-04-13 17:06 | disposition home or self-care (01) ==
PROVIDERS: Visit Provider Registered Nurse
DX: Z39.2 Encounter for routine postpartum follow-up (principal)
CPT/HCPCS: 81025; 82947; 82950

== ENCOUNTER 2022-05-18 13:49 | Outpatient (CLI) | payer OTHER, SELFPAY ==
--- NOTE | 2022-05-18 13:50 | W.PM.LAC.MC ---
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 Avalos Reason for Consult Reason for Consult: struggling with latch, concerns with pump flange Past Experience Past Experience: No Current Frequency of Day Feedings: baby nurses or gets a bottle every 2 - 3 hours during the day Frequency of Night Feedings: sleeping 8 hours overnight Both Breasts: No Suck: fairly strong Latch: wide Length of Time: 12 - 20 minutes total Pumping Pumping: Yes (pumps when at work) Quantity Pumped: 4 - 5 oz total Supplementing EMB Supplement: Yes (baby takes 4 oz EBM when mom is at work) Formula Supplement: No Baby Elimination Number of Wet Diapers a Day: 6 - 7 Number of BM a Day: 1 - 2 Breast/Nipple Condition Breast Information: WNL Interventions for Engorgement: Warm Pack Maternal Nipple Condition - Left: Common Nipple Sore Nipples: No (itchy) Interventions for Sore Nipples: Other (vaseline) Onsite Pre-Feed weight: 5.536 kg Post-Feed weight: 5.638 kg Milk Transferred (mL): 122 Pre-Nursing Left Nipple: Within Normal Limits Pre-Nursing Right Nipple: Within Normal Limits Post-Nursing Left Nipple: Within Normal Limits Post-Nursing Right Nipple: Within Normal Limits Assessments/Interventions Assessments/Interventions: Met with mom and this now 2.5 month old ex- term AGA baby for consult.? Mom reports nursing is going well, but she's concerned he sometimes doesn't get enough at the breast.? States her nipples were very irritated about 3 weeks ago and she thinks it's d/t the flange on her Pati pump.? States nipples were sore, red, peeling, and itchy after nursing and pumping.? She stopped using the Pati pump about two weeks ago and started putting Vaseline on her nipples after nursing baby or pumping with her Medela and her nipples feel better.? Breasts WNL- symmetrical with rounded lower quadrants and the intramammary distance is < 1.5 inches.? Nipples are everted and don't flatten or retract on compression; no damage or irritation visible now.? Mom states the pain never radiated to her back or axilla and was never burning or shooting, it stayed in the nipple.? She also denied any s/s of vasospasm. POC report baby seems to prefer to turn his head to the right but has equal ROM when moving his extremities.? His palate is WNL.? His upper and lower frenulum are WNL.? He has a strong suck on a finger and the tongue easily extends past the gum line and has good lateral movement.? There were no signs of thrush in his mouth and POC deny and recent or frequent diaper rashes. Mom latched baby in the cradle hold on the left side and he nursed for 10 - 15 minutes.? The latch was wide and mom was comfortable.? He was weighed after one side as mom usually doesn't offer the second and had transferred 80 ml.? Baby was burped and offered the right side.? He nursed another 5 - 10 minutes and when weighed again had transferred 42 ml for a total of 122 ml (4 oz). Mom's nipples were measured and the Pati flange was also assessed; it may be too big for her. Plan: 1. Continue to breastfeed on baby's current schedule; suggested she offer both sides each time. 2. Continue current pumping schedule but suggested she purchase the 20 mm flanges for the Pati and the 21 mm were given for her Medela. 3. As she is still using Vaseline stating her nipples are dry, suggested she try a nipple balm.? If she continues to feel any irritation with the smaller flanges or nipple balm to try Miconazole and instructions given. 4. Suggested she or baby start Vitamin D and dosages given. 5. Will f/u on 06/04/22 by phone.? 06/10/22 Mom reports she started using the smaller size flanges for both of her pumps and for a few days everything was comfortable, but she then started to get the same nipple irritation as before.? She stopped using the Pati and it resolved.? She also is continuing to nurse baby on both sides at each nursing session and states that is going well. We discussed it's probably a good idea not to use the Pati and just stick with the Medela.? Happy to hear nursing is comfortable.? Encouraged her to call with any questions or concerns in the future. 06/19/22 Mom called stating she hasn't used the Pati for a few weeks now but in the past few days her nipples have become itchy and flakey again; she states they look chaffed. She denies any shooting/burning pain with nursing or pumping. Also denies any s/s of vasospasm. States baby has no signs of thrush in his mouth or any signs of a diaper rash, he's nursing well. Suggested she try the Miconazole cream we discussed at a previous visit and the instructions were reviewed. Instructed her to use it x 2 weeks even if she's feeling better, will f/u with her on 06/26/22. Meds Home Medications and Allergies Home Medications Medication Instructions Recorded Confirmed Type prenat.vits,gumaro,yvp-erjg-wbuix 1 tab PO QDAY 11/25/21 03/19/22 History ferrous gluconate 324 mg (37.5 mg 324 mg PO QDAY 04/14/22 04/14/22 History iron) tablet Allergies Allergy/AdvReac Type Severity Reaction Status Date / Time Penicillins Allergy Verified 04/14/22 17:28 Penicillin Allergy Unknown Rash Uncoded 04/14/22 17:28
== END 2022-05-18 13:50 | disposition home or self-care (01) ==
LOC: OB LAC 13:49
PROVIDERS: Visit Provider Registered Nurse
DX: Z39.1 Encounter for care and examination of lactating mother (principal)
CPT/HCPCS: 99211

== ENCOUNTER 2025-02-07 15:31 | Outpatient (CLI) | payer OTHER, SELFPAY ==
[2025-02-10 12:49] LABS: HPV Source Cervix
[2025-02-13 09:37] LABS: Pap Test Digital Imaging Done
== END 2025-02-07 15:32 | disposition home or self-care (01) ==
PROVIDERS: Visit Provider Registered Nurse
DX: Z12.4 Encounter for screening for malignant neoplasm of cervix (principal); Z11.51 Encounter for screening for human papillomavirus (HPV)
CPT/HCPCS: 87624; 87625; 88141; 88142; 88175

== ENCOUNTER 2025-02-16 12:09 | Outpatient (CLI) | payer OTHER, SELFPAY ==
--- NOTE | 2025-02-16 12:15 | CRLHL7_ITS ---
For Patients: As a result of the Century Cures Act, medical imaging exams and procedure reports are released immediately into your electronic medical record. You may view this report before your referring provider. If you have questions, please contact your health care provider. INDICATION: Displacement of IUD COMPARISON: None. TECHNIQUE: 2D rendon-scale and color Doppler images were acquired of the pelvis using a transabdominal and transvaginal approach. Transvaginal imaging performed to better visualize the endometrial stripe and ovaries. FINDINGS: Sonographic images demonstrate a normal size and smooth outer contour of the uterus. Uterus measures 7.5 cm in length by 3.4 cm in AP diameter by 4.7 cm in transverse dimension. The myometrium has a normal uniform echotexture. IUD is present in good position within the endometrial canal. The strings are located within the endocervical canal. A small amount of endocervical fluid is noted. The endometrial stripe measures 4.3 millimeters. Possible polyp is noted measuring 7 x 3 x 5 millimeters. The right ovary measures 3.5 x 2.5 x 2.7 cm in size and the left ovary measures 3.8 x 2.2 x 2.0 cm. The ovaries demonstrate normal arterial and venous blood flow on color Doppler analysis. There are no suspicious fluid collections within the cul-de-sac. IMPRESSION: Normal position of an IUD within the endometrial canal. Possible 7 millimeter endometrial polyp. Dictated by Ruben Williamson MD @ 02/16/2025 1:00:54 PM (Electronically Signed)
== END 2025-02-16 12:10 | disposition home or self-care (01) ==
LOC: US 12:09
PROVIDERS: Visit Provider Registered Nurse
DX: T83.32XA Displacement of intrauterine contraceptive device, initial encounter (principal)
CPT/HCPCS: 76830; 76856